=== PATIENT | female | born 1950 | race Caucasian/White ===

== ENCOUNTER 2022-02-11 09:34 | Day surgery (SDC) | payer MEDICARE, BC, SELFPAY ==
[2022-02-11] VITALS (23 sets, daily range): BP systolic 92–155; BP diastolic 6–110; PULSE 74–98; RESP 12–20; TEMP 36.2–36.6; O2SAT 94–100; BMI 32.4
[2022-02-11] MEDS: LACTATED RINGERS 1000 ML 1,000 ML 100 ML IV (10:25)
[2022-02-11] MEDS: OXYCODONE (CR) 10 MG TAB.ER.12H PO (10:25)
[2022-02-11] MEDS: CELECOXIB 200 MG CAPSULE PO ×2 (10:25→20:40)
[2022-02-11] MEDS: SODIUM CHLORIDE 0.9 % (FLUSH) 10 ML SYRINGE IVF (10:25)
[2022-02-11] MEDS: ACETAMINOPHEN 500 MG TABLET 1000 MG PO ×2 (10:25→17:39)
[2022-02-11] MEDS: MIDAZOLAM HCL 1 MG/ML inj IVP (11:10)
[2022-02-11] MEDS: fentaNYL 100 MCG/2 ML inj IVP (11:10)
--- NOTE | 2022-02-11 11:10 | SUR.PREOP ---
TIME?OUT:?1105 PT/RN/MDA?VERIFICATION?OF?SURGICAL?SITE,?PROCEDURE,?AND?CONSENT OBTAINED?PRIOR?TO?INVASIVE?PROCEDURE. CORRECT SITE IDENTIFIED SITE MARKED BLOCK COMPLETED BY DR MYRIAM HOWELL MDA
--- NOTE | 2022-02-11 11:12 | W.PM.NB ---
Nerve Block Nerve Block Time Seen by Provider: 11:13 Date Seen: 02/11/22 Type of block requested by surgeon for post-operative analgesia: adductor canal Side: left Time out performed: Yes Verification of patient name: Yes Verification of date of : Yes Site marking: site marked Name of person performing procedure: Cecilio Continuous monitoring Was continuous monitoring of O2 sat, B/P, school bus monitor, recorded every 15 minutes?: Yes Procedure Checklist: sterile prep, needles and gloves Ultrasound guided. Images saved: Yes Medications given in 5ml increments after negative aspiration: Ropivicaine %: 0.5 mL: 20 Needle gauge: 22 Decadron (mg): 10 Precedex (mcg): 25 Patient tolerated procedure well: Yes Additional comments: Needle noted adjacent to nerve Block Charges Block Charge (with Pro Fee): Femoral Nerve Use of Ultrasound Machine for Block: Yes- US Guidance/pain block
--- NOTE | 2022-02-11 11:13 | W.PM.NB ---
Nerve Block Nerve Block Time Seen by Provider: 11:13 Date Seen: 02/11/22 Type of block requested by surgeon for post-operative analgesia: geniculars Side: left Time out performed: Yes Verification of patient name: Yes Verification of date of : Yes Site marking: site marked Name of person performing procedure: Cecilio Continuous monitoring Was continuous monitoring of O2 sat, B/P, school lunch monitor, recorded every 15 minutes?: Yes Procedure Checklist: sterile prep, needles and gloves Medications given in 5ml increments after negative aspiration: Ropivicaine %: 0.5 mL: 9 Needle gauge: 25 Patient tolerated procedure well: Yes Block Charges Block Charge (with Pro Fee): Genicular Nerve Block Use of Ultrasound Machine for Block: No
[2022-02-11] MEDS: TRANEXAMIC ACID 100 MG/ML INJ 1000 MG IV (12:00)
[2022-02-11] MEDS: CEFAZOLIN 2 GM INJ IVP (12:00)
--- NOTE | 2022-02-11 13:11 | CRLHL7_ITS ---
For Patients: As a result of the Cures Act, medical imaging exams and procedure reports are released immediately into your electronic medical record. You may view this report before your referring provider. If you have questions, please contact your health care provider. Indication: Postop left knee Technique: Two views left knee Findings/Impression: Hardware from a left total knee arthroplasty is in satisfactory position. Bone alignment is normal. No sign of acute fracture. Postop changes are within normal limits. Dictated by Kris Green MD @ 02/11/2022 3:31:00 PM (Electronically Signed)
--- NOTE | 2022-02-11 13:14 | P.ORPRC_ITS ---
Procedure Note Date of procedure: 02/11/22 Procedure: SURGEON: Forest Rhoades MD COMPONENT INSPECTOR: Lisa Calzada PA-C PREOPERATIVE DIAGNOSIS: Left knee osteoarthritis POSTOPERATIVE DIAGNOSIS: Left knee osteoarthritis NAME OF OPERATION: Left total knee arthroplasty ANESTHESIA: Spinal ESTIMATED BLOOD LOSS: 0 mL COMPLICATIONS: None SPECIMENS: None DRAINS: None PREOPERATIVE ANTIBIOTICS: Ancef 2 grams IMPLANTS: 1. J&J Attune # 5 posterior stabilized femur 2. # 5 fixed-bearing tibia 3. # 5 posterior stabilized, 5 mm fixed-bearing polyethylene 4. 38 patella INDICATIONS: The patient is a 71-year-old female with a longstanding history of severe, unrelenting left knee pain secondary to end-stage (grade IV) left knee osteoarthritis. Despite appropriate nonoperative management, including activity modification, anti-inflammatories, aebt-nwy-pmalbqi pain medication, bracing, physical therapy, and injections they continue to have pain and disability. Operative intervention was offered. The risks, benefits and expected outcomes were discussed in detail. These included but were not limited to: Infection, bleeding, injury to blood vessel or nerve, venous thromboembolism. All questions were answered to their satisfaction. Use of an assistant director was necessary throughout the case for patient positioning and safety, soft tissue retraction, and closure. PROCEDURE: Spinal anesthesia was administered. The patient was placed supine on the operating table. The assistant director made sure the patient was positioned appropriately. The lower extremity was prepped and draped in the usual sterile fashion. The limb was exsanguinated with the Shorty bandage. The pneumatic tourniquet was inflated to 300 mmHg. A standard anterior incision was made with the knee in flexion. Subcutaneous dissection was sharply taken through fascial layer #1. Full-thickness medial and lateral flaps were elevated. The assistant director retracted the soft tissues and protected them throughout the case. A standard medial parapatellar approach was made. The patella was everted. The infrapatellar fat pad was preserved. The menisci and cruciate ligaments were sharply d?brided. Marginal osteophytes were d?brided with the rongeur. The drill was used to penetrate the femoral canal. The canal was aspirated and irrigated with pulse lavage. The intramedullary femoral guide was placed for a 5-degree valgus cut, removing 10 mm off the distal femur. The saw was used to make the cut. Whitesides line and the trans epicondylar axis were marked. The femoral sizing guide was pinned onto the distal femur. Three degrees of external rotation nicely parallels the transepicondylar axis. Pins were placed for posterior referencing. The four-in-one cutting guide was pinned onto the distal femur. The anterior, posterior, and chamfer cuts were made. The assistant director protected the collateral ligaments. The box cutting guide was pinned. The box cuts were made. The boxed trial was placed and was an excellent fit. Drill holes for the lugs were made. Attention was then turned to the proximal tibia. The extramedullary tibial guide was placed for a neutral varus/valgus cut with 5 degrees of posterior slope, removing 2 mm based off the medial tibial surface. The assistant director protected the collateral ligaments and the neurovascular bundle. The saw was used to make the cut. Trial components were placed. The knee was nicely balanced in both flexion and extension. Rotation of the tibial component was ma tched to the femur in full extension, matched to our tibial cutting pins, and marked with cautery. The trial components were removed. The tray was pinned by the assistant director and the drill and the punch were used. The tray was removed. The punch was used again. We placed a bone plug in the femoral canal. Attention was then turned to the patella. [place] patellar thickness was 24 mm. The lobster claw resection guide was used with the 9.5 mm sofia. The saw was used to make the cut. Drill holes were made by the assistant director. The trial was placed and was an excellent fit. Cancellous surfaces were irrigated with pulse lavage and thoroughly dried by the assistant director. We cemented the tibial component, then the femoral component. A trial spacer was placed. The knee was brought into full extension. We then cemented the patellar component. Excessive cement was removed. The cement was allowed to harden. Any remaining excessive cement was removed with the osteotome. We impacted the 5 mm polyethylene onto the tibial tray. The knee was taken through a range of motion and was found to be nicely balanced in both flexion and extension. The patella tracks centrally. The assistant director did a three minute dilute Betadine solution soak. The assistant director irrigated the wound with 3 liters of normal saline via pulse lavage. The assistant director reapproximated the extensor mechanism with #1 Vicryl in an interrupted ghmcqu-xv-omyed fashion. The assistant director then ran the extensor mechanism with a #1 PDO Stratafix. The assistant director closed the subcutaneous tissues with a 3-0 Stratafix and the skin with a running 3-0 Stratafix in a subcuticular fashion. Glue was used to seal the skin. The assistant director placed a dry dressing, GLENIS stocking, and Polar Care. Sponge and needle counts were correct x2. The patient tolerated the procedure well. There were no apparent complications. They were carefully transferred to the hospital bed and taken to the postanesthesia care unit in satisfactory condition. PLAN: The patient will be mobilized with physical therapy. Aspirin will be used for DVT prophylaxis. They will be discharged to home once medically appropriate.
--- NOTE | 2022-02-11 14:16 | W.ANESCHARGE ---
Anesthesia Charges Start Date/Time Anesthesia Start Date: 02/11/22 Anesthesia Start Time: 11:40 Stop Date/Time Anesthesia Stop Date: 02/11/22 Anesthesia Stop Time: 14:15 Summary Emergency: No Extremes of Age: Over 68-CPT 86575
--- NOTE | 2022-02-11 14:55 | W.ANESCHARGE ---
Anesthesia Charges Start Date/Time Anesthesia Start Date: 02/11/22 Anesthesia Start Time: 11:40 Stop Date/Time Anesthesia Stop Date: 02/11/22 Anesthesia Stop Time: 14:15 Summary Emergency: No Extremes of Age: Over 68-CPT 52300
--- NOTE | 2022-02-11 15:43 | P.IMCN_ITS ---
Date of Consult Patient: Other Consult date: 02/11/22 Requesting Physician: Orthopedics Primary Care Provider: Merrill Bee PA-C Consult Narrative Narrative: HOSPITALIST CONSULT Hospital Day # 1 Post Op Day # 0 NAME OF OPERATION:? Left total knee arthroplasty ANESTHESIA:? Spinal ESTIMATED BLOOD LOSS:? 0 mL COMPLICATIONS:? None The hospital medicine team was asked by Orthopedic surgery team to manage the patient's multiple medical problems which include hypertension, neuropathy. I updated the [facility] histories and Medications and Allergies in the Expanse tabs REVIEW OF SYSTEMS: 12-point ROS completed with patient and negative unless otherwise stated in HPI or below. PHYSICAL EXAM: CODE STATUS: FULL CODE CONSTITUTIONAL: Conversive, good historian. A/O. Knows setting and context. VITAL SIGNS: see record. HEENT: Normocephalic, atraumatic. PERRL, EOMI, conjunctivae pink, no scleral icterus. Ears and nose externally normal. Pharynx normal. NECK: No JVD. No carotid bruit, no thyromegaly, no adenopathy. CHEST: Clear to auscultation bilaterally HEART: No harsh murmurs. S1/S2. ABDOMEN: Flat, soft, nontender. Normal bowel sounds. Moderately obese. EXTREMITIES: No edema. MUSCULOSKELETAL: Left knee surgical dressing in place. No obvious hematoma or bleeding. NV I. NEURO: Cranial nerves intact. Normal affect. No gross deficits. Speech in telligible. SKIN: No rashes, petechiae, concerning changes PSYCHIATRIC: Euthymic. INVESTIGATIONS: EMR Reviewed DISPOSITION: MedSurg Recovery; Discharge tomorrow DVT: Agree with ortho plan for DVT prevention GI: PO intake PFSH PFS Medical History (Updated 02/11/22 @ 15:50 by Jolynn Correa MD) Acrocyanosis Daily consumption of alcohol GERD (gastroesophageal reflux disease) Glaucoma Hyperlipidemia Hypertension Morbid obesity Peripheral neuropathy Spinal stenosis of lumbosacral region Surgical History (Updated 02/11/22 @ 15:46 by Jolynn Correa MD) History of appendectomy History of arthroplasty of left knee History of bowel resection History of carpal tunnel surgery of right wrist History of hysterectomy History of right knee surgery Family History (Updated 01/26/22 @ 08:38 by Malinda Tafoya RN) Brother High blood pressure Mother Esophageal cancer Father Lung cancer Social History Smoking Status: Former smoker What tobacco products do you use: cigarettes Smoking quit date/years: >15 years ago Do you use any of these nicotine containing products: None How often do you have a drink containing alcohol: 2-3 times a week Alcohol type: beer, wine and hard liquor How many standard drinks containing alcohol do you have on a typical day: 1 or 2 How often do you have six or more drinks on one occasion: Never AUDIT-C Alcohol total score: 3 Non-prescribed substance use: denies use Non-prescribed substance use details: miralax, tylenol, aleve, ibuprofen Caffeine: Yes (tea, 2 cups/day) Meds Home Medications and Allergies Home Medications Medication Instructions Recorded Confirmed Type amlodipine 5 mg tablet 5 mg PO DAILY 02/10/22 02/11/22 History atorvastatin 40 mg tablet 40 mg PO HS 02/10/22 02/11/22 History calcium carbonate 500 mg calcium 1,000 mg PO BID 02/10/22 02/11/22 History (1,250 mg) tablet cholecalciferol (vitamin D3) 25 1,000 unit PO DAILY 02/10/22 02/11/22 History mcg (1,000 unit) tablet duloxetine 60 mg capsule,delayed 120 mg PO DAILY 02/10/22 02/11/22 History release esomeprazole magnesium 20 mg 20 mg PO Q24H 02/10/22 02/11/22 History capsule,delayed release latanoprost 0.005 % eye drops 1 drp ophthalmic (eye) HS 02/11/22 02/11/22 History losartan 50 mg-hydrochlorothiazide 1 tab PO DAILY 02/11/22 02/11/22 History 12.5 mg tablet magnesium oxide 400 mg (241.3 mg 400 mg PO DAILY 02/11/22 02/11/22 History magnesium) tablet Allergies Allergy/AdvReac Type Severity Reaction Status Date / Time morphine Allergy Intermediate Hives Verified 01/18/22 11:35 amoxicillin Allergy Unknown Verified 01/18/22 11:35 levofloxacin Allergy Unknown Verified 01/18/22 11:35 piroxicam AdvReac Intermediate upset Verified 01/18/22 11:35 stomach Exam Const: Vital Signs, click to edit/add: Vital Signs - 24 hr 02/11/22 09:59 02/11/22 11:10 02/11/22 11:15 Temperature 98 F Pulse Rate 98 98 97 Respiratory Rate 20 20 14 Blood Pressure 153/87 H 150/75 H Blood Pressure [Ri ght Arm] Pulse Oximetry 96 100 98 Oxygen Delivery Me thod Nasal Cannula Nasal Cannula Oxygen Flow Rate 3 3 02/11/22 11:20 02/11/22 11:25 02/11/22 14:11 Temperature 98 F 97.2 F L Pulse Rate 88 89 78 Respiratory Rate 14 14 12 Blood Pressure 133/68 134/69 92/55 L Blood Pressure [Ri ght Arm] Pulse Oximetry 98 100 95 Oxygen Delivery Me thod Nasal Cannula Nasal Cannula Room Air Oxygen Flow Rate 3 3 02/11/22 14:15 02/11/22 14:20 02/11/22 14:25 Temperature Pulse Rate 80 75 77 Respiratory Rate 12 12 16 Blood Pressure 111/81 100/69 105/69 Blood Pressure [Ri ght Arm] Pulse Oximetry 95 94 96 Oxygen Delivery Me thod Room Air Room Air Room Air Oxygen Flow Rate 02/11/22 14:30 02/11/22 14:35 02/11/22 14:40 Temperature 97.6 F Pulse Rate 74 74 75 Respiratory Rate 16 16 12 Blood Pressure 119/67 124/62 109/61 Blood Pressure [Ri ght Arm] Pulse Oximetry 94 96 95 Oxygen Delivery Me thod Room Air Room Air Oxygen Flow Rate 02/11/22 14:45 02/11/22 15:00 Temperature 97.1 F L Pulse Rate 74 81 Respiratory Rate 16 18 Blood Pressure 117/62 Blood Pressure [Ri ght Arm] 112/62 Pulse Oximetry 95 Oxygen Delivery Me thod Room Air Room Air Oxygen Flow Rate Assessment and Plan Assessment and plan (1) History of arthroplasty of left knee: Status: Acute Assessment and Plan: Hospital medicine team is happy to follow this patient through to discharge. There have been no perioperative complications. Her blood pressure is running a little high. At this point I am holding her hydrochlorothiazide/losartan and amlodipine. I can dose either the amlodipine or losartan singularly for a dose tonight if needed. She plans to discharge tomorrow with help from her sister at her own home. She would like to have her Cymbalta in the morning, Lipitor tonight. (2) Hypertension: Problem comment: Aram 50/12.5 Status: Acute Assessment and Plan: Continue to monitor. We may need a single 1 time dose of losartan or amlodipine. (3) Daily consumption of alcohol: Problem comment: Patient reports 2-3 alcoholic beverages every night, mixed drink or wine Status: Acute Assessment and Plan: Monitor. Likely not going to be an issue for a an overnight hospital stay. (4) Peripheral neuropathy: Problem comment: Cymbalta 120 mg daily Status: Acute Assessment and Plan: Will does this in the morning (5) GERD (gastroesophageal reflux disease): Problem comment: Daily Nexium Status: Acute Assessment and Plan: Continue (6) Glaucoma: Status: Acute Assessment and Plan: Patient states that she will continue this drops at home. (7) Hyperlipidemia: Problem comment: On statin therapy Status: Acute Assessment and Plan: Continue statin therapy tonight (8) Morbid obesity: Status: Acute
--- NOTE | 2022-02-11 15:43 | PC.NURSE ---
Pt arrived in her hospital bed to room 258 at 1500 pm s/p LTKA with Dr. Rhoades. Pt is a med/surg recovery. Initial vs and assessment from PACU completed by myself. IV patent. Teds on and plexipulses on. Pt had spinal anesthesia and a block on LLE. Left knee dressing CDI. Report to Britt Wilburn RN for evening shift.
[2022-02-11] MEDS: OXYCODONE 5 MG TABLET PO ×3 (16:52→20:41)
[2022-02-11] MEDS: LACTATED RINGERS 1000 ML 1,000 ML 75 ML IV (16:57)
[2022-02-11] MEDS: CEFAZOLIN 2 GM in 0.9 % SODIUM CHLORIDE Mini-bag 100 ML IVPB (17:39)
[2022-02-11] MEDS: ATORVASTATIN CALCIUM 40 MG TABLET PO (20:41)
[2022-02-11] MEDS: SENNOSIDES 1 TAB TABLET 2 TAB PO (20:41)
[2022-02-11] MEDS: ASPIRIN 81 MG TABLET EC PO (20:41)
--- NOTE | 2022-02-11 23:38 | PC.NURSE ---
Patient's pain managed with PRN oxycodone. Up to the bathroom with assist of 1, walker and gait belt. Cryo-cuff, teds and plexi-pulses in place. Dressing is clean dry and intact. Pt denies any nausea and is tolerating a regular diet. Voiding.
[2022-02-12] MEDS: ACETAMINOPHEN 500 MG TABLET 1000 MG PO ×2 (00:01→05:47)
[2022-02-12] MEDS: CEFAZOLIN 2 GM in 0.9 % SODIUM CHLORIDE Mini-bag 100 ML IVPB ×2 (02:06→09:21)
[2022-02-12] MEDS: LORazepam 0.5 MG TABLET PO (02:22)
[2022-02-12 03:00] VITALS: BP 149/87; PULSE 93; RESP 20; TEMP 36.6; O2SAT 95
--- NOTE | 2022-02-12 05:34 | PC.NURSE ---
[id number]: Patient pleasant and cooperative. Pain controlled with PRN Oxycodone. Denies N/V. Dressing to L. knee C/D/I/. CMS intact. A1,walker,GB. Tolerates well. Eating and voiding.
[2022-02-12] MEDS: OXYCODONE 5 MG TABLET PO ×4 (05:47→10:49)
[2022-02-12] MEDS: OMEPRAZOLE 20 MG CAPSULE DR PO (06:42)
[2022-02-12 07:00] VITALS: BP 148/70; PULSE 95; PULSE 97; RESP 20; TEMP 36.2; O2SAT 95
[2022-02-12 07:04] LABS: Basophils Absolute Auto 0.02 K/uL (0.00-0.30); Basophils Percent Auto 0.2 % (0.0-3.0); Hemoglobin* 11.4 gm/dL (12.0-16.0); Immature Granulocytes Abs Auto 0.11 K/uL (0.00-0.30); Mean Corpuscular HGB Conc 34 gm/dL (32-36); Mean Corpuscular Hemoglobin 31 pg (26-34); Mean Corpuscular Volume 93 fL (80-100); Monocytes Percent Auto 7.4 % (0.0-11.0); Neutrophils Percent Auto 86.3 % (42.0-72.0); Platelet Count* 309 K/uL (140-440); Red Blood Count 3.65 m/uL (4.00-5.20); White Blood Count* 10.32 K/uL (4.50-11.00)
[2022-02-12 07:13] LABS: Slide Review Reflex No
[2022-02-12 07:31] LABS: Potassium* 4.8 mmol/L (3.6-5.1)
[2022-02-12 07:33] LABS: Creatinine* 0.9 mg/dL (0.5-1.5); Estimated Glomerular Filt Rate 68 ml/min; INR 0.96 (0.91-1.10); Prothrombin Time 13.2 Seconds
[2022-02-12 07:34] LABS: Blood Urea Nitrogen* 25 mg/dL (7-30)
--- NOTE | 2022-02-12 07:46 | P.ORPN_ITS ---
Subjective Subjective Time Seen by Provider: 07:20 Date Seen: 02/12/22 Principal diagnosis: Day 1 S/P left TKA Interval history: Steph is doing well this morning and is resting comfortably in her recliner. Patient c/o 7/10 knee pain at rest and 9/10 pain with ambulation. Pain is well managed with current scheduled and PRN oral pain medications and ice. Denies: fever, chills, chest pain, SOB, numbness/tingling distally. Patient has not yet been seen by Physical Therapy this morning. Admits to strong appetite. No acute events over night. Ortho Exam Narrative Exam Narrative: Incision/Dressing: Dressing appears clean and dry. No drainage present. Mepilex intact. Left knee appears moderately swollen but supple with no obvious erythema, fluctuance or excessive warmth. No ecchymosis or erythematous streaking. Warmth around the wound is appropriate. Ice is being utilized as needed. CMS: Intact distally with 2+ Dorsalis pedis and Posterior Tibial pulses. 5/5 motor strength dorsal and plantar flexion. Confirmed sensation distally. Intact straight leg raise. Calf: Bilateral calves are supple, with no swelling, pain, tenderness, eryt jesus manuel, discoloration or coolness to the touch. Constitutional: Patient is alert and oriented x3. Patient is in no acute distress and converses without labored breathing. Patient is able to make decisi ons and demonstrates good insight. Patient is pleasant and cooperative. Affect is full range and appropriate for the circumstances. Const Vital Signs, click to edit/add: Vital Signs - 24 hr 02/11/22 09:59 02/11/22 11:10 02/11/22 11:15 Temperature 98 F Pulse Rate 98 98 97 Pulse Rate [Left Pulse Oximeter] Respiratory Rate 20 20 14 Blood Pressure 153/87 H 150/75 H Blood Pressure [Right Arm] Pulse Oximetry 96 100 98 Oxygen Delivery Method Nasal Cannula Nasal Cannula Oxygen Flow Rate 3 3 02/11/22 11:20 02/11/22 11:25 02/11/22 14:11 Temperature 98 F 97.2 F L Pulse Rate 88 89 78 Pulse Rate [Left Pulse Oximeter] Respiratory Rate 14 14 12 Blood Pressure 133/68 134/69 92/55 L Blood Pressure [Right Arm] Pulse Oximetry 98 100 95 Oxygen Delivery Method Nasal Cannula Nasal Cannula Room Air Oxygen Flow Rate 3 3 02/11/22 14:15 02/11/22 14:20 02/11/22 14:25 Temperature Pulse Rate 80 75 77 Pulse Rate [Left Pulse Oximeter] Respiratory Rate 12 12 16 Blood Pressure 111/81 100/69 105/69 Blood Pressure [Right Arm] Pulse Oximetry 95 94 96 Oxygen Delivery Method Room Air Room Air Room Air Oxygen Flow Rate 02/11/22 14:30 02/11/22 14:35 02/11/22 14:40 Temperature 97.6 F Pulse Rate 74 74 75 Pulse Rate [Left Pulse Oximeter] Respiratory Rate 16 16 12 Blood Pressure 119/67 124/62 109/61 Blood Pressure [Right Arm] Pulse Oximetry 94 96 95 Oxygen Delivery Method Room Air Room Air Oxygen Flow Rate 02/11/22 14:45 02/11/22 15:00 02/11/22 15:15 Temperature 97.1 F L Pulse Rate 74 81 Pulse Rate [Left Pulse Oximeter] 76 Respiratory Rate 16 18 18 Blood Pressure 117/62 Blood Pressure [Right Arm] 112/62 106/57 L Pulse Oximetry 95 97 Oxygen Delivery Method Room Air Room Air Room Air Oxygen Flow Rate 02/11/22 15:30 02/11/22 15:45 02/11/22 16:00 Temperature Pulse Rate Pulse Rate [Left Pulse Oximeter] 74 78 83 Respiratory Rate 18 18 18 Blood Pressure Blood Pressure [Right Arm] 106/6 L 131/77 147/110 H Pulse Oximetry 94 98 97 Oxygen Delivery Method Room Air Room Air Room Air Oxygen Flow Rate 02/11/22 16:30 02/11/22 17:00 02/11/22 18:00 Temperature Pulse Rate Pulse Rate [Left Pulse Oximeter] 92 95 95 Respiratory Rate 18 18 18 Blood Pressure Blood Pressure [Right Arm] 155/7 H 135/74 151/102 H Pulse Oximetry 98 97 98 Oxygen Delivery Method Room Air Room Air Room Air Oxygen Flow Rate 02/11/22 19:00 02/11/22 23:00 02/12/22 03:00 Temperature 97.9 F 97.9 F Pulse Rate Pulse Rate [Left Pulse Oximeter] 87 91 93 Respiratory Rate 18 16 20 Blood Pressure Blood Pressure [Right Arm] 130/101 H 131/91 H 149/87 H Pulse Oximetry 97 95 95 Oxygen Delivery Method Room Air Room Air Room Air Oxygen Flow Rate Documenting provider has reviewed patient's vital signs: yes Common normals: no apparent distress, oriented x3, healthy appearing, alert and well nourished Neuro Common normals: oriented x3 Sensorium/orientation: alert Assessment and Plan Assessment and plan (1) History of arthroplasty of left knee: Status: Acute Assessment and Plan: - Complete 23 hour perioperative antibiotics. - PT/OT consults for education and assistance. - Social consult for discharge planning. - Weight bear as tolerated. - DVT prophylaxis includes: aspirin 81 mg BID x 1 month. Also bilateral knee high Reji stockings (x 1 month), frequent ambulation and ankle pumps when sedentary. - Anticipate patient will be discharged to home this afternoon if the patient remains medically stable, pain is controlled and is safe with ambulation. - Return to clinic in 1 week for a wound check with ASHLEY. Mepilex dressing will be removed at this appointment. Remove sooner if dressing becomes saturated. - Return to clinic in [address] Rhoades. - Prescribed analgesics as needed. Patient is content with current narcotic medications. Minimize narcotic pain medication use; wean off and discontinue as soon as possible. - Phone Orthopedics with any questions or concerns. (2) Hypertension: Problem details: Hyzaar 50/12.5 Status: Acute (3) Daily consumption of alcohol: Problem details: Patient reports 2-3 alcoholic beverages every night, mixed drink or wine Status: Acute (4) Peripheral neuropathy: Problem details: Cymbalta 120 mg daily Status: Acute (5) GERD (gastroesophageal reflux disease): Problem details: Daily Nexium Status: Acute (6) Glaucoma: Status: Acute (7) Hyperlipidemia: Problem details: On statin therapy Status: Acute (8) Morbid obesity: Status: Acute
[2022-02-12] MEDS: SENNOSIDES 1 TAB TABLET 2 TAB PO (09:19)
[2022-02-12] MEDS: ASPIRIN 81 MG TABLET EC PO (09:19)
[2022-02-12] MEDS: DULOXETINE 30 MG CAPSULE DR 120 MG PO (09:20)
[2022-02-12] MEDS: CELECOXIB 200 MG CAPSULE PO (09:20)
[2022-02-12] MEDS: MAGNESIUM OXIDE 400 MG TABLET PO (09:20)
--- NOTE | 2022-02-12 09:44 | P.DS_ITS ---
DS: Providers Provider Date Seen: 02/12/22 Primary care physician: Merrill Bee PA-C Admitting Clinician: Dr Rhoades of Orthopedic Surgery Consults: OT, PT, hospitalist team Attending Physician on discharge: Forest Rhoades MD Date of Discharge: 02/12/22 DS: Diagnosis Discharge Diagnosis (1) History of arthroplasty of left knee: Status: Acute (2) GERD (gastroesophageal reflux disease): Status: Acute Problem details: Daily Nexium (3) Hyperlipidemia: Status: Acute Problem details: On statin therapy (4) Hypertension: Status: Acute Problem details: Hyzaar 50/12.5 DS: Summary Hospital Course Hospital Course: Steph is a 71-year-old female who was admitted to the hospital for left TKA. Patient did well postoperatively and comorbidities remained stable. No changes made to home medications upon discharge. She will be going home with her sister today. Prophylaxis and pain management per Orthopedic surgery team. Patient will be discharged home with routine follow-up with therapies, orthopedic surgery, and PCP. Time Spent with Patient Time attestation: Total time spent providing and/or coordinating discharge services: Time spent: Less than 30 minutes Exam Narrative: Exam Narrative: GEN: Alert and oriented, sitting comfortably in bedside chair and answering questions appropriately HEENT: Normal external ears, EOMIs bilaterally, no scleral icterus CV: RRR, No concerning murmurs, rubs, or gallops R: LCTA bilaterally without concerning wheezing, rales, or rhonchi Skin: No concerning skin lesions or rashes on exposed skin Neuro: Nonfocal, no resting tremor Psych: Appropriate Const: Vital Signs, click to edit/add: Vital Signs - 24 hr 02/11/22 09:59 02/11/22 11:10 02/11/22 11:15 Temperature 98 F Pulse Rate 98 98 97 Pulse Rate [Left P ulse Oximeter] Respiratory Rate 20 20 14 Blood Pressure 153/87 H 150/75 H Blood Pressure [Ri ght Arm] Pulse Oximetry 96 100 98 Oxygen Delivery Me thod Nasal Cannula Nasal Cannula Oxygen Flow Rate 3 3 02/11/22 11:20 02/11/22 11:25 02/11/22 14:11 Temperature 98 F 97.2 F L Pulse Rate 88 89 78 Pulse Rate [Left P ulse Oximeter] Respiratory Rate 14 14 12 Blood Pressure 133/68 134/69 92/55 L Blood Pressure [Ri ght Arm] Pulse Oximetry 98 100 95 Oxygen Delivery Me thod Nasal Cannula Nasal Cannula Room Air Oxygen Flow Rate 3 3 02/11/22 14:15 02/11/22 14:20 02/11/22 14:25 Temperature Pulse Rate 80 75 77 Pulse Rate [Left P ulse Oximeter] Respiratory Rate 12 12 16 Blood Pressure 111/81 100/69 105/69 Blood Pressure [Ri ght Arm] Pulse Oximetry 95 94 96 Oxygen Delivery Me thod Room Air Room Air Room Air Oxygen Flow Rate 02/11/22 14:30 02/11/22 14:35 02/11/22 14:40 Temperature 97.6 F Pulse Rate 74 74 75 Pulse Rate [Left P ulse Oximeter] Respiratory Rate 16 16 12 Blood Pressure 119/67 124/62 109/61 Blood Pressure [Ri ght Arm] Pulse Oximetry 94 96 95 Oxygen Delivery Me thod Room Air Room Air Oxygen Flow Rate 02/11/22 14:45 02/11/22 15:00 02/11/22 15:15 Temperature 97.1 F L Pulse Rate 74 81 Pulse Rate [Left P ulse Oximeter] 76 Respiratory Rate 16 18 18 Blood Pressure 117/62 Blood Pressure [Ri ght Arm] 112/62 106/57 L Pulse Oximetry 95 97 Oxygen Delivery Me thod Room Air Room Air Room Air Oxygen Flow Rate 02/11/22 15:30 02/11/22 15:45 02/11/22 16:00 Temperature Pulse Rate Pulse Rate [Left P ulse Oximeter] 74 78 83 Respiratory Rate 18 18 18 Blood Pressure Blood Pressure [Ri ght Arm] 106/6 L 131/77 147/110 H Pulse Oximetry 94 98 97 Oxygen Delivery Me thod Room Air Room Air Room Air Oxygen Flow Rate 02/11/22 16:30 02/11/22 17:00 02/11/22 18:00 Temperature Pulse Rate Pulse Rate [Left P ulse Oximeter] 92 95 95 Respiratory Rate 18 18 18 Blood Pressure Blood Pressure [Ri ght Arm] 155/7 H 135/74 151/102 H Pulse Oximetry 98 97 98 Oxygen Delivery Me thod Room Air Room Air Room Air Oxygen Flow Rate 02/11/22 19:00 02/11/22 23:00 02/12/22 03:00 Temperature 97.9 F 97.9 F Pulse Rate Pulse Rate [Left P ulse Oximeter] 87 91 93 Respiratory Rate 18 16 20 Blood Pressure Blood Pressure [Ri ght Arm] 130/101 H 131/91 H 149/87 H Pulse Oximetry 97 95 95 Oxygen Delivery Me thod Room Air Room Air Room Air Oxygen Flow Rate 02/12/22 07:00 02/12/22 07:00 Temperature 97.1 F L Pulse Rate Pulse Rate [Left P ulse Oximeter] 95 97 Respiratory Rate 20 20 Blood Pressure Blood Pressure [Ri ght Arm] 148/70 H Pulse Oximetry 95 Oxygen Delivery Me thod Room Air Oxygen Flow Rate 0 DS: Data Data Completed and Pending Labs on day of discharge: Labs from last 24 hours 02/12/22 02/12/22 02/12/22 06:02 06:02 06:02 WBC 10.32 RBC 3.65 L Hgb 11.4 L Hct 34.0 MCV 93 MCH 31 MCHC 34 RDW Coeff of Ryley 12.0 Plt Count 309 Neut % (Auto) 86.3 H Lymph % (Auto) 5.0 L Da[place]hin % (Auto) 7.4 Eos % (Auto) 0.0 Baso % (Auto) 0.2 Neut # (Auto) 8.90 H Lymph # (Auto) 0.50 L Dauphin # (Auto) 0.80 Eos # (Auto) 0.00 Baso # (Auto) 0.02 Abs Immat Gran (auto) 0.11 INR 0.96 Potassium 4.8 BUN 25 Creatinine 0.9 Estimated Creat Clear 46.90 Estimated GFR 68 Discharge Plan Discharge Disposition: Home, Self-Care Discharging Surgeon: Forest Rhoades Follow-Up Appointment: One week with ASHLEY and [address] Rhoades Prescriptions: New acetaminophen 500 mg Tablet 500 - 1,000 mg PO Q6H Qty: 100 0RF aspirin 81 mg Tablet,Delayed Release (Dr/Ec) 81 mg PO BID Qty: 60 0RF celecoxib 200 mg Capsule 200 mg PO BID Qty: 30 0RF oxycodone 5 mg Tablet 2.5 - 5 mg PO Q4-6H PRN (Reason: Pain) Qty: 42 0RF sennosides [Senna Lax] 8.6 mg Tablet 17.2 mg PO BID Qty: 30 0RF Continued atorvastatin 40 mg tablet 40 mg PO HS calcium carbonate 500 mg calcium (1,250 mg) tablet 1,000 mg PO BID esomeprazole magnesium 20 mg capsule,delayed release(DR/EC) 20 mg PO Q24H duloxetine 60 mg capsule,delayed release(DR/EC) 120 mg PO DAILY cholecalciferol (vitamin D3) 25 mcg (1,000 unit) tablet 1,000 unit PO DAILY amlodipine 5 mg tablet 5 mg PO DAILY Label Comments: TAKE 1 TABLET BY MOUTH ONCE DAILY losartan-hydrochlorothiazide 50-12.5 mg tablet 1 tab PO DAILY Label Comments: TAKE 1 TABLET BY MOUTH ONCE DAILY latanoprost 0.005 % drops 1 drp ophthalmic (eye) HS Rx Instructions: 1 drop each eye everynight magnesium oxide 400 mg (241.3 mg magnesium) tablet 400 mg PO DAILY Activity Level: Activity as Tolerated and Weight Bearing as Tolerated Discharge Diet: Regular Patient Instructions: Acetaminophen (By mouth), Aspirin (By mouth) (Dana Extra Strength, Dana Aspirin Children's,..., Oxycodone, Rapid Release (By mouth) (ETH-Oxydose, Oxy IR,..., Celecoxib (By mouth), Senna (By mouth) (Sen, Senna- lax), Surgical Site Infections (DC), Knee Replacement (DC) Forms: Work/Release Restrictions Follow-up: Lisa Calzada PA-C [Physician Sr. Payroll Processor] - 02/19/22 10:00 am Merrill Bee PA-C [Primary Care Provider] - (Set up appointment as needed) Discharge Orders: Discharge Order (Routine); Ordered 02/12/22 Ordered By: Lisa Calzada
--- NOTE | 2022-02-12 12:14 | PC.NURSE ---
Patient tolerated PT/OT well today. oxy given prior to d/c. IV removed after last ABX dose. Home walker brought in for sizing however walker same height/size as current walker that PT adjusted in room. Pt discharged home with sister at 1200.
== END 2022-02-12 12:00 | disposition home or self-care (01) ==
LOC: OR 09:37 → MEDSURG 09:41
PROVIDERS: PCP Physician Assistant; Visit Provider Orthopaedic Surgery
PROC: (CPT 27447; principal; 2022-02-11 11:30)
DX: M17.12 Unilateral primary osteoarthritis, left knee (principal); K21.9 Gastro-esophageal reflux disease without esophagitis; I10 Essential (primary) hypertension; G62.9 Polyneuropathy, unspecified; H40.9 Unspecified glaucoma; E78.5 Hyperlipidemia, unspecified; E66.01 Morbid (severe) obesity due to excess calories; Z68.32 Body mass index [BMI] 32.0-32.9, adult
CPT/HCPCS: 27447; 01402; 36415; 64447; 64454; 73560; 76942; 82565; 84132; 84295; 84520; 85025; 85610; 97110; 97116; 97161; 97165; 97530; 97535; 99100; A9270; C1776; J0690; J1100; J2250; J2370; J2405; J2704; J2795; J3010; J7120

== ENCOUNTER 2022-03-22 15:40 | Outpatient (CLI) | payer MEDICARE, BC, SELFPAY ==
--- OUTSIDE RECORDS SUMMARY | 2022-03-22 15:43 | XMS_ITS | Encounter Summary ---
:1950 Author Organization [facility] Address [address] [place] [address] Care Team Providers Name Role Phone Merrill Bee P.A.-C. Primary Care Provider [phone] Reason for Referral Outpatient (Routine) - Closed Specialty Diagnoses / Procedures Referred By Contact Refer red To Contact Diagnoses Screening Mammogram Breast Cancer Merrill Bee P.A.-C. [facility] Procedures BI Breast Screening Bilateral with Tomosynthesis [address] [place] [address] Referral ID Status Reason Start Date Expiration Date Visits Requ ested Visits Authorized [id number] Closed 01/20/2022 01/20/2023 1 1 Reason for Visit Outpatient (Routine) - Closed Specialty Diagnoses / Procedures Referred By Contact Refer red To Contact Diagnoses Screening Mammogram Breast Cancer Merrill Bee P.A.-C. [facility] Procedures BI Breast Screening Bilateral with Tomosynthesis [address] [place] [address] Referral ID Status Reason Start Date Expiration Date Visits Requ ested Visits Authorized [id number] Closed 01/20/2022 01/20/2023 1 1 Encounter Details Date Type Department Care Team Description 01/21/2022 Hospital Encounter Department of Cielo Bee Mammogram Radiology in [facility] [place], [place] [address], [place] [phone] Social History Tobacco Use Types Packs/Day Years Used Date Smoking Tobacco: Former Cigarettes Quit : 03/25/1994 Smokeless Tobacco: Never Alcohol Use Standard Drinks/Week Comments Yes 25 (1 standard drink = 0.6 oz pure 2-3 d rinks every night (mixed drink alcohol) or wine) Alcohol Habits Answer Date Recorded How often do you have a drink containing 4 or more times a w [place] 10/05/2021 alcohol? How many drinks containing alcohol do you have 1 or 2 10/05/2021 on a typical day when you are drinking? How often do you have six or more drinks on one Less than mo nthly 10/05/2021 occasion? Social Isolation Answer Date Recorded In a typical week, how many times do you More than three clif[place] es a week 10/05/2021 talk on the phone with family, friends, or neighbors? How often do you get together with friends More than three t imes a week 10/05/2021 or relatives? How often do you attend congregation or 1 to 4 times per year 07/2021 denominational services? Do you belong to any clubs or Yes 10/05/2021 organizations such as congregation groups, unions, fraternal or athletic groups, or school groups? How often do you attend meetings of the More than 4 times pe r year 10/05/2021 clubs or organizations you belong to? Are you now , , , 10/05/2021 , never or living with a partner? Physical Activity Answer Date Recorded On average, how many days per week do you engage in moderate to 1 day 10/05/2021 strenuous exercise (like walking fast, running, jogging, dancing, swimming, biking, or other activities that cause a light or heavy sweat)? On average, how many minutes do you engage in exercise at th is 20 min 10/05/2021 level? Stress Answer Date Recorded Do you feel stress - tense, restless, nervous, or anxious, N ot at all 10/05/2021 or unable to sleep at night because your mind is troubled all the time - these days? Financial Resource Strain Answer Date Recorded How hard is it for you to pay for the very basics like Not h david at all 10/05/2021 food, housing, medical care, and heating? Intimate Partner Violence Answer Date Recorded Within the last year, have you been afraid of your partner o r No 10/05/2021 ex-partner? Within the last year, have you been humiliated or emotionall y No 10/05/2021 abused in other ways by your partner or ex-partner? Within the last year, have you been kicked, hit, slapped, or No 10/05/2021 otherwise physically hurt by your partner or ex-partner? Within the last year, have you been raped or forced to have any No 10/05/2021 kind of sexual activity by your partner or ex-partner? Food Insecurity Answer Date Recorded Within the past 12 months, you worried that your food would Never true 10/05/2021 run out before you got money to buy more. Within the past 12 months, the food you bought just didn't N ever true 09/30/2020 last and you didn't have money to get more. Transportation Needs Answer Date Recorded In the past 12 months, has lack of transportation kept you f rom No 10/05/2021 medical appointments or from getting medications? In the past 12 months, has lack of transportation kept you f rom No 10/05/2021 meetings, work, or getting things needed for daily living? Housing Stability Answer Date Recorded In the last 12 months, was there a time when you were not ab le No 10/05/2021 to pay the mortgage or rent on time? In the last 12 months, how many places have you lived? 1 10/05/2021 In the last 12 months, was there a time when you did not hav e a No 10/05/[address] sleep or slept in a penitentiary (including now)? Education Answer Date Recorded What is the highest level of school Master's degree (e.g., M Gogo, MS, 12/01/2018 you have completed or the highest Faustina, MEd, CRUISE GUIDE, GIORGIO) degree you have received? Sex Assigned at Date Recorded Female 03/07/2018 9:31 AM CDT documented as of this encounter Medications at Time of Discharge Medication Sig Dispensed Refills Start Date End Date acetaminophen Take 650-1,200 mg by 0 (TYLENOL) 500 mg mouth 3 (three) times tablet a day as needed. Take 500-1,000 mg by mouth 3 times daily if needed. Max acetaminophen dose: 4000mg in 24 hours. amLODIPine (NORVASC) 5 Take 1 tablet (5 mg 90 tablet 3 01/04 mg tablet total) by mouth daily. atorvastatin (LIPITOR) Take 1 tablet (40 mg 90 tablet 3 40 mg tablet total) by mouth at bedtime. B complex-vitamin Take 1 capsule by 0 10/22/2015 (for_SUPER B-50) mouth daily. capsule CALCIUM Take by mouth 2 (two) 0 01/27/2010 CARBONATE/VITAMIN D3 times a day. (CALCIUM 600 WITH VITAMIN D3 ORAL) cholecalciferol, Take 1,000 Units by 0 vitamin D3, 25 mcg mouth daily. (1,000 Unit) tablet DOCOSAHEXANOIC daily. 0 12/13/2012 ACID/EPA (FISH OIL ORAL) DULoxetine (CYMBALTA) Take 2 capsules (120 180 capsule 3 01/20/[address] capsule mg total) by mouth daily. esomeprazole (NexIUM) Take 20 mg by mouth 0 12/[address] capsule daily. GLUCOSAMINE/CHONDROITI daily. 0 10/05/2010 N SULF A (GLUCOSAMINE-CHONDROIT IN ORAL) latanoprost Administer 1 drop 0 08/02/2014 (for_XALATAN) 0.005 % into both eyes at ophthalmic solution bedtime. losartan-hydroCHLOROth Take 1 tablet by 90 tablet 3 022 01/20/2023 iazide (HYZAAR) mouth daily. 50-12.5 mg per tablet magnesium oxide Take 400 mg by mouth 0 (MAG-OX) 400 mg (241.3 daily. mg magnesium) tablet meclizine (ANTIVERT) TAKE 1 TABLET BY 90 tablet 3 2 25 mg tablet MOUTH THREE TIMES DAILY NEEDED FOR DIZZINESS multivitamin Take 1 tablet by 0 (THERAGRAN) tablet mouth daily. omega-3 fatty Take 1 capsule by 0 acids-fish oil mouth. 360-1,200 mg capsule polyethylene glycol Take 17 g by mouth 0 06/22/19 21 (MIRALAX) 17 gram/dose daily. Measure 17g in oral powder the cap provided and dissolve completely in 8 ounces of liquid as directed and drink once a day TURMERIC ORAL Take 1 capsule by 0 mouth daily. VIT C/VIT Take 1 tablet by 0 10/22/2015 E/LUTEIN/MIN/OMEGA-3 mouth daily. (OCUVITE ORAL) documented as of this encounter Plan of Treatment Upcoming Encounters Date Type Specialty Care Team Description 03/25/2022 Office Visit Family Medicine Leslie Gonzalez M.D. [address] [place] [address] [phone] (Wo rk) documented as of this encounter Procedures Procedure Name Priority Date/Time Associated Comments Diagnosis BI BREAST SCREENING RAD - Routine 01/21/2022 11:39 Screening Res ults for BILATERAL WITH (most inpatients AM CDT Mammogram Breast this procedure TOMOSYNTHESIS and all Cancer are in the outpatients) results section. documented in this encounter Results BI Breast Screening Bilateral with Tomosynthesis (01/21/2022 11:39 AM CDT) Anatomical Region Laterality Modality Breast, Breast Imaging RST LOS, Breast Imaging ARZ LOS, [place] st Bilateral Mammography Imaging FLA LOS Specimen (Source) Anatomical Collection Method Collection Time Re ceived Time Location / / Volume Laterality 01/21/2022 4:22 PM CDT Impressions 01/21/2022 4:29 PM CDT Negative. RECOMMENDATION: ??Annual Screening Mammo gram ASSESSMENT: ??BI-RADS: 1: Negative. Narrative 01/21/2022 4:29 PM CDT EXAM: ??BI BREAST SCREENING BILATERAL WITH TOMOSYNTHESIS Current study was evaluated with a Compu ter Aided Detection (CAD) system. INDICATION: ??Screening mammogram. COMPARISON: ??Prior exam(s) were availab le and reviewed for comparison. DENSITY: ??c. The breast(s) are heteroge neously dense, which may obscure small masses. FINDINGS: ??No mammographic findings of malignancy. Procedure Note Sharif Kenyon M.D. - 01/21/2022Formattin g of this note might be different from the original. EXAM: BI BREAST SCREENING BILATERAL WITH TOMOSYNTHESIS Current study was evaluated with a Compu ter Aided Detection (CAD) system. INDICATION: Screening mammogram. COMPARISON: Prior exam(s) were available and reviewed for comparison. DENSITY: c. The breast(s) are heterogene ously dense, which may obscure small masses. FINDINGS: No mammographic findings of ma lignancy. IMPRESSION: Negative. RECOMMENDATION: Annual Screening Mammogr am ASSESSMENT: BI-RADS: 1: Negative. Merrill Bee P.A.-C. IMG BI PROCEDURES documented in this encounter Visit Diagnoses Diagnosis Screening Mammogram Breast Cancer documented in this encounter Care Teams Newsperson Relationship Specialty Start Date End Date Merrill Bee P.A.-C. PCP - General 11/18/16 [address] [place] [address] documented as of this encounter
--- OUTSIDE RECORDS SUMMARY | 2022-03-22 15:43 | XMS_ITS | Clinical Summary ---
:1950 Author Organization [facility] Address [address] [place] [address] Care Team Providers Name Role Phone Merrill Bee P.A.-C. Primary Care Provider [phone] Source Comments Patient records contain information from all sites at [facility]. For routine questions regarding patient records, call [phone] during business hours, M-F 8:00 AM - 5:00 PM Central Time. Record requests for emergency care only can be directed to [phone] at any time.[facility] Allergies Active Allergy Reactions Severity Noted Date Comments Amoxicillin Diarrhea 10/30/2009 Levofloxacin Hives 10/30/2009 Morphine Hives 10/30/2009 Piroxicam Other (see comments) 10/30/2009 swollen hands and feet, ankles Pregabalin Other (see comments) 12/13/2012 fatigue , edema at high dose Medications Medication Sig Dispensed Refills Start Date End Date Status CALCIUM Take by mouth 2 0 01/27/2010 Act michael CARBONATE/VITAMIN D3 (two) times a day. (CALCIUM 600 WITH VITAMIN D3 ORAL) esomeprazole Take 20 mg by mouth 0 12/06/2016 Active (NexIUM) [address] daily[address] capsule GLUCOSAMINE/CHONDROI daily. 0 10/05/2010 Active TIN SULF A (GLUCOSAMINE-CHONDRO ITIN ORAL) latanoprost Administer 1 drop 0 08/02/2014 Active (for_XALATAN) 0.005 into both eyes at % ophthalmic bedtime. solution B complex-vitamin Take 1 capsule by 0 10/22/2015 Active (for_SUPER B-50) mouth daily. capsule VIT C/VIT Take 1 tablet by 0 10/22/2015 Ac tive E/LUTEIN/MIN/OMEGA-3 mouth daily. (OCUVITE ORAL) DOCOSAHEXANOIC daily. 0 12/13/2012 Acti ve ACID/EPA (FISH OIL ORAL) TURMERIC ORAL Take 1 capsule by 0 Active mouth daily. cholecalciferol, Take 1,000 Units by 0 Active vitamin D3, 25 mcg mouth daily. (1,000 Unit) tablet magnesium oxide Take 400 mg by 0 Active (MAG-OX) 400 mg mouth daily. (241.3 mg magnesium) tablet multivitamin Take 1 tablet by 0 Active (THERAGRAN) tablet mouth daily. polyethylene glycol Take 17 g by mouth 0 06/22/2020 Active (MIRALAX) 17 daily. Measure 17g gram/dose oral in the cap provided powder and dissolve completely in 8 ounces of liquid as directed and drink once a day acetaminophen Take 650-1,200 mg 0 Active (TYLENOL) 500 mg by mouth 3 (three) tablet times a day as needed. Take 500-1,000 mg by mouth 3 times daily if needed. Max acetaminophen dose: 4000mg in 24 hours. omega-3 fatty Take 1 capsule by 0 Active acids-fish oil mouth. 360-1,200 mg capsule meclizine (ANTIVERT) TAKE 1 TABLET BY 90 tablet 3 12/30/2021 Active 25 mg tablet MOUTH THREE TIMES DAILY NEEDED FOR DIZZINESS amLODIPine (NORVASC) Take 1 tablet (5 mg 90 tablet 3 2 Active 5 mg tablet total) by mouth daily. atorvastatin Take 1 tablet (40 90 tablet 3 01/20/2022 Active (LIPITOR) 40 mg mg total) by mouth tablet at bedtime. DULoxetine Take 2 capsules 180 capsule 3 01/20/2022 Active (CYMBALTA) [address] (120 mg total) by 3 capsule mouth daily. losartan-hydroCHLORO Take 1 tablet by 90 tablet 3 01/20/2022 0 Active thiazide (HYZAAR) mouth daily. 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 Spinal Stenosis Lumbosacral Region 04/28/2020 Hypertension Essential Primary 03/10/2018 Neuropathy Peripheral 11/18/2017 Hypercholesterolemia 09/21/2011 Resolved Problems Problem Noted Date Resolved Date History Of Falling 12/10/2020 01/12/2021 Edema Leg 12/10/2020 01/20/2022 Alcohol Moderate Or Severe Use Disorder (Dependence) 021 12/17/2021 Uncomplicated Other Hypotension 07/08/2020 07/14/2020 Onychomycosis 04/12/2018 01/12/2021 Polyp Colon Personal History 04/19/2014 11/18/2017 Stroke 10/30/2013 01/04/2020 Overview: Stroke Reflux Esophageal 12/15/2010 01/12/2021 Encounters Date Type Specialty Care Team Description 02/21/2022 Orders Only Merrill Bee, P.A.-C. 01/21/2022 Hospital Encounter Radiology Rohit, Screening Mammogram Breast Merrill, Cancer P.A.-C. 01/20/2022 Hospital Encounter Radiology Rohit, Pain Wris t Right Merrill, P.A.-C. 01/20/2022 Office Visit Family Medicine Rohit, Annual Medic are Merrill, Examination Ret urn P.A.-C. (Primary Dx) Anita Crespo R.N. 01/20/2022 Comprehensive Visit Family Medicine Rohit, Hyper cholesterolemia (Primary Dx); Merrill, Hypertension Es sential Primary; P.A.-C. Acrocyanosis (H CC); Neuropathy Joan pheral; Preoperative Ex am; Screening Mammo gram Breast Cancer; Pain Wrist Righ t; Pain Knee Left 01/19/2022 Clinical Family Medicine Rohit, Medicare [facility] Wellness Communication Merrill, Visit Subseque nt P.A.-C. 01/18/2022 Hospital Encounter Laboratory Rohit, Hyperchol esterolemia; Medicine Merrill, Hypertension Es sential Primary P.A.-C. 12/29/2021 Refill Family Medicine Rohit, Med Refill Merrill, P.A.-C. from Last 3 Months Immunizations Name Administration Dates Next Due DT, Pediatric 05/20/2000 HZV (ZOSTAVAX) 01/27/2010 HepA Adult 01/12/2008 HepA, Unspecified 04/18/2007 Influenza high dose QV(65 years or 03/24/2020 older) (PF) Influenza, Quadrivalent, Adjuvanted, 03/27/2021 Preservative Free Influenza, Unspecified 03/06/2020 PCV20 01/20/2022 PPSV23 01/04/2020 RZV (SHINGRIX) 06/01/2019, 03/19/2019 SARS-COV-2 (COVID-19) - MODERNA 08/29/2020, 08/01/2020 Td (Adult), adsorbed 11/12/2021 (Deferred: Patient decision) Td Preservative Free (TENIVAC, 11/12/2021, 07/14/2020 DECAVAC) Tdap 01/27/2010 Family History Medical History Relation Name Comments Colitis Brother 1 Filiberto Hypertension Brother 1 Filiberto Seizures Brother 1 Filiberto Hypertension Brother 2 Lianne Arita Lung cancer Father Chuy Arita Coronary artery disease Father's Brother Ayden Arita Tuberculosis Maternal Grandfather Norberto Kumar Other cancer Mother Una Arita stomach Relation Name Status Comments Brother 1 Filiberto Brother 2 Lianne Juan J Father Chuy Arita Father's Brother Ayden Arita Maternal Grandfather Norberto Kumar Mother Una Arita Social History Tobacco Use Types Packs/Day Years Used Date Smoking Tobacco: Former Cigarettes Quit : 03/25/1994 Smokeless Tobacco: Never Tobacco Cessation: Counseling Given: Not Answered Alcohol Use Standard Drinks/Week Comments Yes 25 (1 standard drink = 0.6 oz pure 2-3 d rinks every night (mixed drink alcohol) or wine) Alcohol Habits Answer Date Recorded How often do you have a drink containing 4 or more times a w [place] 10/05/2021 alcohol? How many drinks containing alcohol [...] or relatives? How often do you attend caodaism or 1 to 4 times per year 07/2021 christian services? Do you belong to any clubs or Yes 10/05/2021 organizations such as caodaism groups, unions, fraternal or athletic groups, or [...] place to sleep or slept in a chcf (including now)? Education Answer Date Recorded What is the highest level of school Master's degree (e.g., M [place], MS, 12/01/2018 you have completed or the highest Faustina, MEd, LIFE GUARD, GIORGIO) degree you have received? Sex Assigned at Date Recorded Female 03/07/2018 9:31 AM CDT Last Filed Vital Signs Vital Sign Reading Time Taken Comments Blood Pressure 135/77 01/20/2022 8:16 AM CDT Average Pulse 89 01/20/2022 8:16 AM CDT Temperature 36.2 ??C (97.1 ??F) 01/20/2022 8:16 AM CDT Respiratory Rate 16 01/20/2022 8:16 AM CDT Oxygen Saturation 99% 06/11/2021 3:20 PM OUTSIDE PHYSICAL DAMAGE APPRAISER Inhaled Oxygen Concentration - - Weight 93 kg (205 lb 0.4 oz) 01/20/2022 8:16 AM CDT Height 168 cm (5' 6.14) 01/20/2022 8:16 AM CDT Body Mass Index 32.95 01/20/2022 8:16 AM CDT Plan of Treatment Upcoming Encounters Date Type Specialty Care Team Description 03/25/2022 Office Visit Family Medicine Leslie Gonzalez M.D. [address] [place] [address] [phone] (Wo rk) Health Maintenance Due Date Last Done Comments CT Colonography 1950 Cologuard 1950 Hepatitis C Screening 1950 COVID-19 Vaccine (5 - Booster for 10/30/2021 09/04/2021, , Moderna series) 08/29/2020, Additional history exists Influenza Vaccine (#1) 2022 03/27/2021, 03/24/2020, 03/06/2020 Creatinine Level 01/18/2023 01/18/2022, 12/14/2021, 11/11/2021, Additional history exists Potassium Level 01/18/2023 01/18/2022, 12/14/2021, 11/11/2021, Additional history exists Sodium Level 01/18/2023 01/18/2022, 12/14/2021, 11/11/2021, Additional history exists Office Visit for Blood Pressure 01/20/2023 01/20/2022 Check / Re-check Visit: Chronic Disease, age 18+ 01/20/2023 01/20/2022 Mammogram 01/21/2023 01/21/2022, 01/20/2021, 01/01/2020, Additional history exists Colonoscopy 06/14/2024 06/14/2019, 04/19/2014, 04/19/2014 (Performed elsewhere), Additional history exists Colorectal Cancer Surveillance 06/14/2024 Fasting Glucose for Diabetes 01/18/2025 01/18/2022, 022, Screening 11/11/2021, Additional history exists Lipid (Cholesterol) Screening 01/18/2027 01/18/2022, 2020, 01/01/2020, Additional history exists DTaP,Tdap,and Td Vaccines (5 - Td 11/13/2031 11/12/2021, , or Tdap) 01/27/2010, Additional history exists Zoster Vaccines Completed 06/01/2019, 03/19/2019, 01/27/2010 Fall Risk Screen (Annual) Completed 06/11/2021 Depression Screening (Annual Completed 01/20/2022 PHQ-2) Pneumococcal vaccine (65+ years) Completed 01/20/2022, Procedures Procedure Name Priority Date/Time Associated Comments Diagnosis BI BREAST SCREENING RAD - Routine 01/21/2022 11:39 Screening Res ults for BILATERAL WITH (most inpatients AM CDT Mammogram Breast this procedure TOMOSYNTHESIS and all Cancer are in the outpatients) results section. DX WRIST RIGHT 3+ RAD - Routine 01/20/2022 9:51 Pain Wrist Right Re sults for VIEWS (most inpatients AM CDT this proced ure and all are in the outpatients) results section. LIPID PANEL, S Routine 01/18/2022 8:10 Hypercholesterole Resul ts for AM CDT delia this procedure Hypertension are in the Essential Primary results section. COMPREHENSIVE Routine 01/18/2022 8:10 Hypercholesterole Result s for METABOLIC PANEL, S/P AM CDT delia this procedure Hypertension are in the Essential Primary results section. from Last 3 Months Results BI Breast Screening Bilateral with Tomosynthesis (01/21/2022 11:39 AM CDT) Anatomical Region Laterality Modality Breast, Breast Imaging RST LOS, Breast Imaging ARZ LOS, [address] st Bilateral Mammography Imaging FLA LOS Specimen [...] TOMOSYNTHESIS Current study was evaluated with a [employer] Aided Detection (CAD) system. INDICATION: Screening mammogram. COMPARISON: Prior exam(s) were available and reviewed for comparison. DENSITY: c. The breast(s) are heterogene ously dense, which may obscure small masses. FINDINGS: No mammographic findings of ma lignancy. IMPRESSION: Negative. RECOMMENDATION: Annual Screening Mammogr am ASSESSMENT: BI-RADS: 1: Negative. Merrill Bee P.A.-C. [facility] BI PROCEDURES DX Wrist Right 3+ Views (01/20/2022 9:51 AM CDT) Anatomical Region Laterality Modality Upper Extremity, Wrist, Musculoskeletal RST LOS, Right Digital Radiography Musculoskeletal ARZ LOS, Muskuloskeletal FLA LOS Specimen (Source) Anatomical Collection Method Collection Time Re ceived Time Location / / Volume Laterality 01/20/2022 1:08 PM CDT Impressions 01/20/2022 1:09 PM CDT No fracture visualized. Mild degenerative change in wrist at STT and first CMC joint. Narrative 01/20/2022 1:09 PM CDT EXAM: DX WRIST RIGHT 3+ VIEWS Procedure Note Garfield Robison M.D. - 01/20/2022Form atting of this note might be different from the original. EXAM: DX WRIST RIGHT 3+ VIEWS IMPRESSION: No fracture visualized. Mild degenerativ e change in wrist at STT and first CMC joint. Merrill Bee P.A.-C. IMG DIAGNOSTIC IMAGING PROCE DURES (ABNORMAL) Lipid Panel (01/18/2022 8:10 AM CDT) athologist Signature Triglycerides 183 (H) mg/dL 01/18/2022 OWAT 11:56 AM CDT Comment: ----REFERENCE VALUE---- Normal: <150 mg/dL Borderline High: 150-199 mg/dL High: 200-499 mg/dL Very High: > or =500 mg/dL Cholesterol, Total 177 mg/dL 01/18/2022 11:56 AM C DT OWAT Comment: ----REFERENCE VALUE---- Desirable: < 200 mg/dL Borderline High: 200 - 239 mg/dL High: > or = 240 mg/dL Cholesterol, LDL, Calculated 81 mg/dL 01/18/2022 11:56 AM CDT OWAT Comment: ----REFERENCE VALUE---- Desirable: <100 mg/dL Above Desirable: 100-129 mg/dL Borderline High: 130-159 mg/dL High: 160-189 mg/dL Very High: >=190 mg/dL ----ADDITIONAL INFORMATION---- LDL cholesterol calculated using the Curran/NIH equation. Cholesterol, HDL 65 >=50 mg/dL 01/18/2022 11:56 AM CD T OWAT Cholesterol, Non-HDL, Calculated 112 mg/dL 022 11:56 AM CDT OWAT Comment: ----REFERENCE VALUE---- Desirable: <130 mg/dL Above Desirable: 130-159 mg/dL Borderline High: 160-189 mg/dL High: 190-219 mg/dL Very High: > or =220 mg/dL Fasting (8 HR or more) Yes 01/18/2022 11:07 AM CDT OWAT Specimen Anatomical Collection Method Collection Time Receive d Time (Source) Location / / Volume Laterality Blood (Blood, 01/18/2022 8:10 AM 01/19/20 22 Venous) CDT 11:07 AM CDT Merrill Bee P.A.-C. LAB BLOOD ADD-ON Performing Organization Address City/State/ZIP Code Phon e Number [facility] [address] [place] [address] [place] [address] System in [place] [address] [facility] Comprehensive Metabolic Panel (01/18/2022 8:10 AM CDT) P athologist Signature Potassium, P 4.6 3.6 - 5.2 01/18/2022 [facility] mmol/L 11:56 AM CDT Sodium, P 141 135 - 145 01/18/2022 [facility] mmol/L 11:56 AM CDT Chloride, P 101 98 - 107 01/18/2022 [place] mmol/L 11:56 AM CDT Bicarbonate, P 29 22 - 29 01/18/2022 [place] mmol/L 11:56 AM CDT Anion Gap, P 11 7 - 15 01/18/2022 [place] 11:56 AM CDT BUN (Blood Urea 20 6 - 21 01/18/2022 OW[place] Nitrogen), P mg/dL 11:56 AM CDT Creatinine 0.86 0.59 - 01/18/2022 [facility] 1.04 mg/dL 11:56 AM CDT eGFR-Black/Afric 78 >=60 01/18/2022 [facility] an [place] mL/min/BSA 11:56 AM CDT Comment: ----ADDITIONAL INFORMATION---- Estimated GFR calculated using the 2009 CKD_EPI creatinine equation. eGFR Non-Black/ 67 >=60 mL/min/BSA 01/18/2022 11:56 AM CDT [facility] Comment: ----ADDITIONAL INFORMATION---- Estimated GFR calculated using the 2009 CKD_EPI creatinine equation. Calcium, Total, P 9.5 8.8 - 10.2 mg/dL 01/18/2022 11:5 6 AM CDT [facility] Glucose, P 135 70 - 140 mg/dL 01/18/2022 11:56 AM CDT [facility] Protein, Total, P 6.9 6.3 - 7.9 g/dL 01/18/2022 11:56 AM CDT OW[place] Albumin, P 4.5 3.5 - 5.0 g/dL 01/18/2022 11:56 AM CDT [facility] Aspartate Aminotransferase 26 8 - 43 U/L 01/18/2022 1 1:56 AM CDT OW[place] (AST), P Alkaline Phosphatase, P 80 35 - 104 U/L 01/18/2022 11 :56 AM CDT OW[place] Alanine Aminotransferase (ALT), 20 7 - 45 U/L 022 11:56 AM CDT OWAT P Bilirubin, Total, P 0.2 <=1.2 mg/dL 01/18/2022 11:56 A M CDT OW[facility] Specimen Anatomical Collection Method Collection Time Receive d Time (Source) Location / / Volume Laterality Blood (Blood, 01/18/2022 8:10 AM 01/19/20 22 Venous) CDT 11:07 AM CDT Merrill Bee P.A.-C. LAB BLOOD ADD-ON Performing Organization Address City/State/ZIP Code Phon e Number [facility]- [address] [place] [address] [place] [address] System in [place] [address] from Last 3 Months Insurance Payer Benefit Plan Subscriber ID Effective Phone Address Typ e / Group Dates MEDICARE MEDICARE A [id number] 2013-Pre [address] 0 Medicare AND B 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 See document viewer. Care Teams Trailer Steerer Relationship Specialty Start Date End Date Merrill Bee P.A.-C. PCP - General 11/18/16 [address] [place] [phone]
--- OUTSIDE RECORDS SUMMARY | 2022-03-22 15:43 | XMS_ITS | Encounter Summary ---
:1950 Author Organization [facility] Address [address] [place] [address] Care Team Providers Name Role Phone Merrill Bee P.A.-C. Primary Care Provider [phone] Reason for Referral Outpatient (Routine) - Authorized Specialty Diagnoses / Procedures Referred By Contact Refer red To Contact Garfield Serrato M.B.B.S., [facility] Rhonda Munoz [address] [place] [phone] Referral ID Status Reason Start Date Expiration Date Visits V isits Requested Authorized [id number] Authorized 01/20/2022 01/20/2023 1 1 Scheduling Instructions Last AWV 01/20/2022, please schedule next Medicare Annual Wellness visit on or after 01/21/2023. Reason for Visit Reason Comments Medicare Annual Wellness Visit Subsequent Appointment Request (Routine) - Closed Specialty Diagnoses / Procedures Referred By Contact Refer red To Contact Family Medicine Referral ID Status Reason Start Date Expiration Date Visits Requ ested Visits Authorized [id number] Closed 01/19/2022 01/19/2023 1 1 Encounter Details Date Type Department Care Team Description 01/20/2022 Office Visit Department of Family Kathleen Bee P.A.-C. [address] [place] [phone] Annual Medicare Medicine, Anita Kirby R.N. Examination Return Clinic, in [place], (Prima ry Dx) [address] [place] [phone] Social History Tobacco Use Types Packs/Day Years [...] containing 4 or more times a w [place] 10/05/2021 alcohol? How many drinks containing alcohol [...] or relatives? How often do you attend restoration or 1 to 4 times per year 07/2021 advent services? Do you belong to any clubs or Yes 10/05/2021 organizations such as restoration groups, unions, fraternal or athletic groups, or [...] place to sleep or slept in a assisted (including now)? Education Answer Date Recorded What is the highest level of school Master's degree (e.g., M A, MS, 12/01/2018 you have completed or the highest Faustina, MEd, PROJECTS MANAGER, GIORGIO) degree you have received? Sex Assigned at Date Recorded Female 03/07/2018 9:31 AM CDT documented as of this encounter Progress Notes Anita Crespo R.N. - 01/20/2022 8:45 AM CDT HEALTH ASSESSMENT Reason For Visit Patient presents with Medicare Annual Wellness Visit Subsequent VITALS: Blood Pressure: 135/77 (Average) (01/20/2022 8:16 AM) Temperature: 36.2 ??C (01/20/2022 8:16 AM) Temp Source: Temporal (01/20/2022 8:16 AM) Pulse Rate: 89 (01/20/2022 8:16 AM) Resp Rate: 16 (01/20/2022 8:16 AM) BMI (Calculated): 33 kg/m?? (01/20/2022 8:16 AM) Height: 168 cm (01/20/2022 8:16 AM) Weight: 93 kg (01/20/2022 8:16 AM) PHQ-2 PHQ-2 Score: 0 PHQ-9 PHQ9 Score 11/08/2016 PHQ-9 Total Score (max 27) 0 Mini Cog Mini-COG not completed. Cognitive function assessed by direct observation without concerns. FUNCTIONAL/HOME ENVIRONMENT History of falls: Have you fallen within the last year or do you fear you might fall?: Yes (:33 PM) Do you use an assisted device to walk? (Walker, cane, wheelchair, crutch): No (06/11/2021 2:33 PM) Today, do you feel any of the following? Weak, dizzy, shaky, or unsteady?: No (06/11/2021 2:33 PM) Have you taken any medication within the last 6 hours which may make you feel drowsy? Such as sleep,pain, or anxiety medication: No (06/11/2021 2:33 PM) The following portions of the patients history were reviewed and updated as appropriate: allergies, medications, family history, medical history, problem list, social history, surgical history and careteams/suppliers. Home Environment: Nicholas's home has the following: two stories, functional smoke alarms and handrails on stairs/steps. For the multiple stories, the home has: stairs. Home Environment Note: Patient lives in a two story home. Patient does not have a fire extinguisher,however she does have funcitonal carbon monoxide detectors. Advanced Directive Status: Advance directive completed - On file Patient did take information on advanced directives today, she may want to update her existing one on file. Patient also took paperwork on release of information and will return it to the clinic to be added to her chart. Anita Crespo R.N. documented in this encounter Plan of Treatment Upcoming Encounters Date Type Specialty Care Team Description 03/25/2022 Office Visit Family Medicine Leslie Gonzalez M.D. [address] [place] [phone] (Wo rk) Scheduled Referrals Name Type Priority Associated Diagnoses Order S rebeka Primary Care nurse Outpatient Referral Routine Ex pected: visit (clinic) - 01/21/[address] [facility] Region; (Approxim ate), Medicare Annual Expires: Wellness 04/22/2023 documented as of this encounter Visit Diagnoses Diagnosis Annual Medicare Examination Return - Kassidy nicholas documented in this encounter Care Teams Electric Freight Car Operator Relationship Specialty Start Date End Date Merrill Bee P.A.-C. PCP - General 11/18/16 [address] [place] [phone] documented as of this encounter
--- OUTSIDE RECORDS SUMMARY | 2022-03-22 15:43 | XMS_ITS | Encounter Summary ---
:1950 Author Organization [facility] Address [address] [place] [address] Care Team Providers Name Role Phone Merrill Bee P.A.-C. Primary Care Provider [phone] Reason for Referral Specialty Diagnoses / Procedures Referred By Contact Refer red To Contact Merrill Bee P. A.-C. R [facility] Region [address] [place] [phone] Referral ID Status Reason Start Date Expiration Date Visits Requ ested Visits Authorized Encounter Details Date Type Department Care Team Description 02/21/2022 Orders Only [facility] PCP [facility] Merrill Bee P.A.-C. [address] [place] [phone] (Wo rk) Social History Tobacco Use Types Packs/Day Years Used Date Smoking Tobacco: Former Cigarettes Quit : 03/25/1994 Smokeless Tobacco: Never Alcohol Use Standard Drinks/Week Comments Yes 25 (1 standard drink = 0.6 oz pure 2-3 d rinks every night (mixed drink alcohol) or wine) Alcohol Habits Answer Date Recorded How often do you have a drink containing 4 or more times a w [place] 10/05/2021 alcohol? How many drinks containing alcohol [...] or relatives? How often do you attend pentecostalism or 1 to 4 times per year 07/2021 orthodoxy services? Do you belong to any clubs or Yes 10/05/2021 organizations such as pentecostalism groups, unions, fraternal or athletic groups, or [...] place to sleep or slept in a detention (including now)? Education Answer Date Recorded What is the highest level of school Master's degree (e.g., M A, MS, 12/01/2018 you have completed or the highest Faustina, MEd, UPPERS EDGE BURNISHER, GIORGIO) degree you have received? Sex Assigned at Date Recorded Female 03/07/2018 9:31 AM CDT documented as of this encounter Plan of Treatment Upcoming Encounters Date Type Specialty Care Team Description 03/25/2022 Office Visit Family Medicine Leslie Gonzalez M.D. [address] [place] [phone] (Wo rk) Scheduled Referrals Name Type Priority Associated Order Schedule Diagnoses Covid immunization Outpatient Referral Routine Ex pected: office visit 02/21/2022 Immuno/Booster (Approximate) , Expires: 02/21/2023 documented as of this encounter Visit Diagnoses Not on filedocumented in this encounter Care Teams Precision Grinder Relationship Specialty Start Date End Date Merrill Bee P.A.-C. PCP - General 11/18/[address] [place] [phone] documented as of this encounter
--- OUTSIDE RECORDS SUMMARY | 2022-03-22 15:43 | XMS_ITS | Encounter Summary ---
:1950 Author Organization [facility] Address [address] [place] [address] Care Team Providers Name Role Phone Merrill Bee P.A.-C. Primary Care Provider [phone] Reason for Referral Outpatient (Routine) - Closed Specialty Diagnoses / Procedures Referred By Contact Refer red To Contact Diagnoses Pain Wrist Right Merrill Bee P.A.-C. [facility] [place] [facility] Procedures DX Wrist Right 3+ Views [address] [place] [phone] Referral ID Status Reason Start Date Expiration Date Visits Requ ested Visits Authorized [id number] Closed 01/20/2022 01/20/2023 1 1 Reason for Visit Outpatient (Routine) - Closed Specialty Diagnoses / Procedures Referred By Contact Refer red To Contact Diagnoses Pain Wrist Right Merrill Bee P.A.-C. [facility] [place] [facility] Procedures DX Wrist Right 3+ Views [address] [place] [phone] Referral ID Status Reason Start Date Expiration Date Visits Requ ested Visits Authorized [id number] Closed 01/20/2022 01/20/2023 1 1 Encounter Details Date Type Department Care Team Description 01/20/2022 Hospital Encounter Department of Merrill Bee Pai n Wrist Right Radiology in [place], [place] [address] [phone] Social History Tobacco Use Types Packs/Day Years Used Date Smoking Tobacco: Former Cigarettes Quit : 03/25/1994 Smokeless Tobacco: Never Alcohol Use Standard Drinks/Week Comments Yes 25 (1 standard drink = 0.6 oz pure 2-3 d rinks every night (mixed drink alcohol) or wine) Alcohol Habits Answer Date Recorded How often do you have a drink containing 4 or more times a w [place] 10/05/2021 alcohol? How many drinks containing alcohol [...] or relatives? How often do you attend buddhism or 1 to 4 times per year 07/2021 mormonism services? Do you belong to any clubs or Yes 10/05/2021 organizations such as buddhism groups, unions, fraternal or athletic groups, or [...] place to sleep or slept in a halfway (including now)? Education Answer Date Recorded What is the highest level of school Master's degree (e.g., M A, MS, 12/01/2018 you have completed or the highest Faustina, MEd, MAIL SORTER AND DELIVERY, GIORGIO) degree you have received? Sex Assigned [...] Office Visit Family Medicine Leslie Gonzalez M.D. [address] [place] [phone] (Wo rk) documented as of this encounter Procedures Procedure Name Priority Date/Time Associated Comments Diagnosis DX WRIST RIGHT 3+ RAD - Routine 01/20/2022 9:51 Pain Wrist Right Re sults for this VIEWS (most inpatients AM CDT procedure a re in and all the results outpatients) section. documented in this encounter Results DX Wrist Right 3+ Views (01/20/2022 9:51 [...] Bee P.A.-C. IMG DIAGNOSTIC IMAGING PROCE DURES documented in this encounter Visit Diagnoses Diagnosis Pain Wrist Right documented in this encounter Care Teams Property Portfolio Officer Relationship Specialty Start Date End Date Merrill Bee P.A.-C. PCP - General 11/18/[address] [place] [phone] documented as of this encounter
--- OUTSIDE RECORDS SUMMARY | 2022-03-22 15:44 | XMS_ITS | Encounter Summary ---
:1950 Author Organization [facility] Address [address] [place] [address] Care Team Providers Name Role Phone Merrill Bee P.A.-C. Primary Care Provider [phone] Encounter Details Date Type Department Care Team Description 10/22/2021 Ancillary Procedure Department of Vascular Social History Tobacco Use Types Packs/Day Years Used Date Smoking Tobacco: Former Cigarettes Quit : 1993 Smokeless Tobacco: Never Alcohol Use Standard Drinks/Week Comments Yes 16 (1 standard drink = 0.6 oz pure 2-3 d rinks every night (mixed drink alcohol) or wine) Alcohol Habits Answer Date Recorded How often do you have a drink containing 4 or more times a w [place] 10/05/2021 alcohol? How many drinks containing alcohol [...] or relatives? How often do you attend yarsanism or 1 to 4 times per year 07/2021 baptist services? Do you belong to any clubs or Yes 10/05/2021 organizations such as yarsanism groups, unions, fraternal or athletic groups, or [...] place to sleep or slept in a prison (including now)? Education Answer Date Recorded What is the highest level of school Master's degree (e.g., M A, MS, 12/01/2018 you have completed or the highest Faustina, MEd, NURSING PROGRAM COORDINATOR, GIORGIO) degree you have received? Sex Assigned at Date Recorded Female 03/07/2018 9:31 AM CDT documented as of this encounter Plan of Treatment Upcoming Encounters Date Type Specialty Care Team Description 03/25/2022 Office Visit Family Medicine Leslie Gonzalez M.D. [address] [place] [phone] (Wo rk) documented as of this encounter Procedures Procedure Name Priority Date/Time Associated Diagnosis Comme nts VASCULAR IMAGE EXAM Routine 10/22/2021 1:25 PM Re sults for this CDT procedure are i n the results section. documented in this encounter Results Foot-Vascular Image Exam (10/22/2021 1:25 PM CDT) Specimen (Source) Anatomical Collection Method Collection Time Re ceived Time Location / / Volume Laterality 10/22/2021 1:23 PM CDT Narrative [facility] - 10/22/2021 1:25 PM CDT This order has been created and auto-finalized to support the import of images acquired without order. The clini tiago documentation to support these images can be found on the encounter esteban t produced images. Provider Not In System IMG NON RAD IMAGING PROCEDUR ES Performing Organization Address City/State/ZIP Code Phon e Number [facility] NA documented in this encounter Visit Diagnoses Not on filedocumented in this encounter Care Teams Light Adjuster Relationship Specialty Start Date End Date Merrill Bee P.A.-C. PCP - General 11/18/16 [address] [place] [phone] documented as of this encounter
--- OUTSIDE RECORDS SUMMARY | 2022-03-22 15:44 | XMS_ITS | Encounter Summary ---
:1950 Author Organization [facility] Address [address] [place] [address] Care Team Providers Name Role Phone Merrill Bee P.A.-C. Primary Care Provider [phone] Reason for Visit Reason Comments Med Refill Encounter Details Date Type Department Care Team Description 12/29/2021 Refill Department of Family Medicine, Merrill Rodriguez P.A.-C. Med Refill [facility], in [address] [place] [phone] [place] [address] [place] [address] [phone] Social History Tobacco Use Types Packs/Day Years Used Date Smoking Tobacco: Former Cigarettes Quit : 1993 Smokeless Tobacco: Never Alcohol Use Standard Drinks/Week Comments Yes 16 (1 standard drink = 0.6 oz pure 2-3 d rinks every night (mixed drink alcohol) or wine) Alcohol Habits Answer Date Recorded How often do you have a drink containing 4 or more times a w [place] 10/05/2021 alcohol? How many drinks containing alcohol [...] or relatives? How often do you attend spiritism or 1 to 4 times per year 07/2021 amish services? Do you belong to any clubs or Yes 10/05/2021 organizations such as spiritism groups, unions, fraternal or athletic groups, or [...] place to sleep or slept in a skilled nursing (including now)? Education Answer Date Recorded What is the highest level of school Master's degree (e.g., M Gogo, MS, 12/01/2018 you have completed or the highest Faustina, MEd, MEDICAL LABORATORY TECHNICIANS, GIORGIO) degree you have received? Sex Assigned at Date Recorded Female 03/07/2018 9:31 AM CDT documented as of this encounter Plan of Treatment Upcoming Encounters Date Type Specialty Care Team Description 03/25/2022 Office Visit Family Medicine Leslie Gonzalez M.D. [address] [place] [phone] (Wo rk) documented as of this encounter Visit Diagnoses Not on filedocumented in this encounter Care Teams Dump Grader Relationship Specialty Start Date End Date Merrill Bee P.A.-C. PCP - General 11/18/[address] [place] [phone] documented as of this encounter
--- OUTSIDE RECORDS SUMMARY | 2022-03-22 15:44 | XMS_ITS | Encounter Summary ---
:1950 Author Organization [facility] Address [address] [place] [address] Care Team Providers Name Role Phone Merrill Bee P.A.-C. Primary Care Provider [phone] Encounter Details Date Type Department Care Team Description 10/26/2021 Hospital Encounter Department of Merrill Bee Hyp erkalemia Laboratory Medicine in [place], [place] 225 [facility] [address] [place] [phone] Social History Tobacco Use Types Packs/Day Years Used Date Smoking Tobacco: Former Cigarettes Quit : 1993 Smokeless Tobacco: Never Alcohol Use Standard Drinks/Week Comments Yes 16 (1 standard drink = 0.6 oz pure 2-3 d rinks every night (mixed drink alcohol) or wine) Alcohol Habits Answer Date Recorded How often do you have a drink containing 4 or more times a w [place] 10/05/2021 alcohol? How many drinks containing alcohol [...] or relatives? How often do you attend gnosticism or 1 to 4 times per year 07/2021 bahai services? Do you belong to any clubs or Yes 10/05/2021 organizations such as gnosticism groups, unions, fraternal or athletic groups, or school groups? How often do you attend meetings of the More than 4 times [facility] year 10/05/2021 clubs or organizations you belong [...] minutes do you engage in exercise at is 20 min 10/05/2021 level? Stress Answer [...] place to sleep or slept in a nursing home (including now)? Education Answer Date Recorded What is the highest level of school Master's degree (e.g., Adrien Bowens, MS, 12/01/2018 you have completed or the highest Faustina, MEd, GUITAR TEACHER, GIORGIO) degree you have received? Sex Assigned [...] Max acetaminophen dose: 4000mg in 24 hours. B complex-vitamin Take 1 capsule by 0 10/22/2015 (for_SUPER B-50) mouth daily. capsule CALCIUM Take by mouth 2 (two) 0 01/27/2010 CARBONATE/VITAMIN D3 times a day. (CALCIUM 600 WITH VITAMIN D3 ORAL) cholecalciferol, Take 1,000 Units by 0 vitamin D3, 25 mcg mouth daily. (1,000 Unit) tablet DOCOSAHEXANOIC daily. 0 12/13/2012 ACID/EPA (FISH OIL ORAL) esomeprazole (NexIUM) Take 20 mg by mouth 0 12/[address] capsule daily. GLUCOSAMINE/CHONDROITI daily. 0 10/05/2010 N SULF A (GLUCOSAMINE-CHONDROIT IN ORAL) latanoprost Administer 1 drop 0 08/02/2014 (for_XALATAN) 0.005 % into both eyes at ophthalmic solution bedtime. magnesium oxide Take 400 mg by mouth 0 (MAG-OX) 400 mg (241.3 daily. mg magnesium) tablet multivitamin Take 1 tablet by 0 (THERAGRAN) tablet mouth daily. polyethylene glycol Take 17 g by mouth 0 06/22/19 21 (MIRALAX) 17 gram/dose daily. Measure 17g in oral powder the cap provided and dissolve completely in 8 ounces of liquid as directed and drink once a day TURMERIC ORAL Take 1 capsule by 0 mouth daily. VIT C/VIT Take 1 tablet by 0 10/22/2015 E/LUTEIN/MIN/OMEGA-3 mouth daily. (OCUVITE ORAL) amLODIPine (NORVASC) 5 Take 1 tablet (5 mg 90 tablet 3 10/0410/28/2021 mg tablet total) by mouth daily. aspirin 325 mg tablet Take 325 mg by mouth 0 12/17/2021 daily. atorvastatin (LIPITOR) TAKE 1 TABLET BY 90 tablet 3 021 01/20/2022 40 mg tablet MOUTH AT BEDTIME DULoxetine (CYMBALTA) Take 2 capsules (120 180 capsule 3 02/202101/20/[address] capsule mg total) by mouth daily. furosemide (LASIX) 20 Take 1 tablet (20 mg 1 tablet 0 10/0511/12/2021 mg tablet total) by mouth daily. lisinopriL Take 1 tablet by 90 tablet 3 07/22/2021 10/29/19 22 (PRINIVIL,ZESTRIL) 20 mouth once daily mg tablet meclizine (ANTIVERT) Take 1 tablet (25 mg 90 tablet 3 01/1212/30/2021 25 mg tablet total) by mouth 3 (three) times a day as needed for dizziness. documented as of this encounter Plan of Treatment Upcoming Encounters Date Type Specialty Care Team Description 03/25/2022 Office Visit Family Medicine Leslie Gonzalez M.D. [address] [place] [phone] (Wo nicho) documented as of this encounter Procedures Procedure Name Priority Date/Time Associated Diagnosis Comme nts BASIC METABOLIC Routine 10/26/2021 10:15 Hyperkalemia Results for this PANEL, S/P AM CDT procedure are i n the results section. documented in this encounter Results (ABNORMAL) Basic Metabolic Panel (10/26/2021 10:15 AM CDT) P athologist Signature Potassium, P 6.2 (CH) 3.6 - 5.2 10/26/2021 [facility] mmol/L 2:28 PM CDT Comment: Results repeated. Sodium, P 137 135 - 145 mmol/L 10/26/2021 2:08 PM CDT [facility] Chloride, P 102 98 - 107 mmol/L 10/26/2021 2:08 PM CDT [facility] Bicarbonate, P 23 22 - 29 mmol/L 10/26/2021 2:09 PM C DT [facility] Anion Gap, P 12 7 - 15 10/26/2021 2:08 PM CDT [facility] BUN (Blood Urea Nitrogen), P 27 (H) 6 - 21 mg/dL 10/27/19 2:09 PM CDT [facility] Creatinine 0.88 0.59 - 1.04 mg/dL 10/26/2021 2:09 PM CD T [facility] eGFR-Black/ 75 >=60 mL/min/BSA 2021 2:09 PM CDT [facility] Comment: ----ADDITIONAL INFORMATION---- Estimated GFR calculated using the 2009 CKD_EPI creatinine equation. eGFR Non-Black/ 65 >=60 mL/min/BSA 2:09 PM CDT [facility] Comment: ----ADDITIONAL INFORMATION---- Estimated GFR calculated using the 2009 CKD_EPI creatinine equation. Calcium, Total, P 9.5 8.8 - 10.2 mg/dL 10/26/2021 2:09 PM CDT [facility] Glucose, P 115 70 - 140 mg/dL 10/26/2021 2:09 PM CDT O ROGERIO Specimen Anatomical Collection Method Collection Time Receive d Time (Source) Location / / Volume Laterality Blood (Blood, 10/26/2021 10:15 10/26/2021 1:21 Venous) AM CDT PM CDT Merrill Bee P.A.-C. LAB BLOOD ADD-ON Performing Organization Address City/State/ZIP Code Phon e Number [facility] [address] [address] [facility] [place] [address] System in [place] [address] documented in this encounter Visit Diagnoses Diagnosis Hyperkalemia documented in this encounter Care Teams Cofounder Relationship Specialty Start Date End Date Merrill Bee P.A.-C. PCP - General 11/18/16 [address] [place] [phone] documented as of this encounter
--- OUTSIDE RECORDS SUMMARY | 2022-03-22 15:44 | XMS_ITS | Encounter Summary ---
:1950 Author Organization [facility] Address [address] [place] [address] Care Team Providers Name Role Phone Merrill Bee P.A.-C. Primary Care Provider [phone] Reason for Referral Outpatient (Routine) - Closed Specialty Diagnoses / Procedures Referred By Contact Refer red To Contact Family Medicine Merrill Bee P. A.-C. [facility] [address] [phone] Referral ID Status Reason Start Date Expiration Date Visits Requ ested Visits Authorized [id number] Closed 11/12/2021 11/12/2022 1 1 Reason for Visit Reason Comments Hypertension Did labs yesterday. Has jayda rds of home blood pressure. No other concerns. Outpatient (Routine) - Closed Specialty Diagnoses / Procedures Referred By Contact Refer red To Contact Family Medicine Merrill Bee P. A.-C. [address] [phone] Referral ID Status Reason Start Date Expiration Date Visits Requ ested Visits Authorized [id number] Closed 10/28/2021 10/28/2022 1 1 Encounter Details Date Type Department Care Team Description 11/12/2021 Office Visit Department of Merrill Self Ac rocyanosis (HCC) (Primary Dx); MedicinePreet P.A.-C. Hypertension Essential Primary; Clinic, in [address] [facility]kal[facility]; [facility] [place] Dysphagia; [address] [phone] Preoperative Exam [place] MATIAS [phone] (Work) [phone] Social History Tobacco Use Types Packs/Day Years Used Date Smoking Tobacco: Former Cigarettes Quit : 1993 Smokeless Tobacco: Never Alcohol Use Standard Drinks/Week Comments Yes 16 (1 standard drink = 0.6 oz pure 2-3 d rinks every night (mixed drink alcohol) or wine) Alcohol Habits Answer Date Recorded How often do you have a drink containing 4 or more times a w [place] 10/05/2021 alcohol? How many drinks containing alcohol [...] or relatives? How often do you attend faith or 1 to 4 times per year 07/2021 muslim services? Do you belong to any clubs or Yes 10/05/2021 organizations such as faith groups, unions, fraternal or athletic groups, or [...] have completed or the highest Faustina, MEd, JOINT TERMINAL ATTACK CONTROLLER, GIORGIO) degree you have received? Sex Assigned at Date Recorded Female 03/07/2018 9:31 AM CDT documented as of this encounter Last Filed Vital Signs Vital Sign Reading Time Taken Comments Blood Pressure 133/80 11/12/2021 10:11 AM CDT Pulse 89 11/12/2021 10:11 AM CDT Temperature 36.2 ??C (97.1 ??F) 11/12/2021 10:06 AM CDT Respiratory Rate 16 11/12/2021 10:06 AM CDT Oxygen Saturation - - Inhaled Oxygen Concentration - - Weight 92.7 kg (204 lb 4.1 oz) 11/12/2021 10:06 AM CDT Height - - Body Mass Index 33.02 10/22/2021 12:41 PM CDT documented in this encounter Progress Notes Merrill Bee P.A.-C. - 11/12/2021 10:30 AM CDT SUBJECTIVE CHIEF COMPLAINT / REASON FOR VISIT Steph Simmons is a 71 y.o. female who presents for evaluation of Hypertension (Did labs yesterday. Has records of home blood pressure. No other concerns.). HISTORY OF PRESENT ILLNESS Steph presents today for follow-up. 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 We started her on amlodipine at the recommendation of vascular Medicine. 5 mg worked well for her blood pressure control but not quite good enough so we increased to 10 mg and unfortunately she has now developed lower extremity edema. She also has a history of hyperkalemia and previously had been on lisinopril which may have made this worse. We discontinued the lisinopril. She also has dysphagia and we have set her up alex EGD and that is scheduled for tomorrow. She is in today to discuss the results of her blood pressure and her lab work. Her potassium was just slightly elevated on her follow-up lab work. She does continue to struggle with epigastric discomfort with swallowing. She also has some knee pain and will likely need a knee replacement surgery coming up possibly later this summer. She is able to walk two city blocks without having chest pain. She does get generalized shortness of breath but this seems to be secondary to deconditioning. Patient Active Problem List Diagnosis ??? Hypercholesterolemia ??? Neuropathy Peripheral ??? Hypertension Essential Primary ??? Spinal Stenosis Lumbosacral Region ??? Edema Leg ??? Alcohol Moderate Or Severe Use Disorder (Dependence) Uncomplicated (HCC) ??? Acrocyanosis (HCC) OBJECTIVE Vitals: 11/12/21 1006 11/12/21 1011 BP: 141/81 133/80 BP Location: Left arm Left arm Patient Position: Sitting Sitting Cuff Size: Large Large Pulse: 88 89 Resp: 16 Temp: 36.2 ??C TempSrc: Temporal Weight: 92.7 kg Body mass index is 33.02 kg/m??. PHYSICAL EXAMINATION General: Patient appears in no acute distress. Heart: Regular rate rhythm no murmurs Lungs: Clear to auscultation ASSESSMENT / PLAN #1 Acrocyanosis (HCC) This has responded to amlodipine so we will continue that for now but at a lower dose will decrease this to 5 mg daily #2 Hypertension Essential Primary I am going to add in losartan and hydrochlorothiazide at a small dose. I will see her back in a month with an electrolyte panel. #3 Hyperkalemia I am hopeful that the hydrochlorothiazide will help with this. Her potassium is acceptable now but she has been known to have hyperkalemia in the past when she was on lisinopril. This should not be as bad with the losartan #4 Dysphagia She will follow-up for her EGD as scheduled tomorrow #5 Preoperative Exam He is ASA class two for surgery. Good to go. No restrictions. Total time spent 30 minutes Merrill Bee P.A.-C. documented in this encounter Plan of Treatment Upcoming Encounters Date Type Specialty Care Team Description 03/25/2022 Office Visit Family Medicine Leslie Gonzalez M.D. [address] [place] [phone] (Wo rk) Scheduled Referrals Name Type Priority Associated Diagnoses Order S rebeka Family Medicine Outpatient Referral Routine Expec marc: office visit 12/12/2021 (clinic) (Approximate), Expires: 02/12/2023 documented as of this encounter Results Basic Metabolic Panel (12/14/2021 10:32 AM CDT) P athologist Signature Potassium, P 5.1 3.6 - 5.2 12/14/2021 [facility] mmol/L 1:50 PM CDT Sodium, P 138 135 - 145 12/14/2021 [facility] mmol/L 1:50 PM CDT Chloride, P 98 98 - 107 12/14/2021 [facility] mmol/L 1:50 PM CDT Bicarbonate, P 28 22 - 29 12/14/2021 [facility] mmol/L 1:50 PM CDT Anion Gap, P 12 7 - 15 12/14/2021 [facility] 1:50 PM CDT BUN (Blood Urea 17 6 - 21 12/14/2021 [facility] Nitrogen), P mg/dL 1:50 PM CDT Creatinine 0.78 0.59 - 12/14/2021 [facility] 1.04 mg/dL 1:50 PM CDT eGFR-Black/Afric 87 >=60 12/14/2021 [facility] an [place] mL/min/BSA 1:50 PM CDT Comment: ----ADDITIONAL INFORMATION---- Estimated GFR calculated using the 2009 CKD_EPI creatinine equation. eGFR Non-Black/ 76 >=60 mL/min/BSA 1:50 PM CDT [facility] Comment: ----ADDITIONAL INFORMATION---- Estimated GFR calculated using the 2009 CKD_EPI creatinine equation. Calcium, Total, P 9.9 8.8 - 10.2 mg/dL 12/14/2021 1:50 PM CDT [facility] Glucose, P 123 70 - 140 mg/dL 12/14/2021 1:50 PM CDT O ROGERIO Specimen Anatomical Collection Method Collection Time Receive d Time (Source) Location / / Volume Laterality Blood (Blood, 12/14/2021 10:32 12/14/2021 1:23 Venous) AM CDT PM CDT Merrill Bee P.A.-C. LAB BLOOD ADD-ON Performing Organization Address City/State/ZIP Code Phon e Number [facility]- [address] [place] [address] [place] [address] System in [place] [address] documented in this encounter Visit Diagnoses Diagnosis Acrocyanosis (HCC) - Primary Hypertension Essential Primary Hyperkalemia Dysphagia Preoperative Exam documented in this encounter Care Teams Coffee Weigher Relationship Specialty Start Date End Date Merrill Bee P.A.-C. PCP - General 11/18/16 [address] [place] [phone] documented as of this encounter
--- OUTSIDE RECORDS SUMMARY | 2022-03-22 15:44 | XMS_ITS | Encounter Summary ---
:1950 Author Organization [facility] Address [address] [place] [address] Care Team Providers Name Role Phone Merrill Bee P.A.-C. Primary Care Provider [phone] Reason for Referral Outpatient (Routine) - Closed Specialty Diagnoses / Procedures Referred By Contact Refer red To Contact Diagnoses Atherosclerosis Arteriosclerosis Obliterans Lower Extremity With Claudication (HCC) [facility] Procedures Lower Extremity Arterial (BHANU) - Exercise (Claudication) P.A.-C. [address] [place] [address] Referral ID Status Reason Start Date Expiration Date Visits Requ ested Visits Authorized [id number] Closed 10/15/2021 10/15/2022 1 1 Reason for Visit Outpatient (Routine) - Closed Specialty Diagnoses / Procedures Referred By Contact Refer red To Contact Diagnoses Atherosclerosis Arteriosclerosis Obliterans Lower Extremity With Claudication (HCC) [facility] Procedures Lower Extremity Arterial (BHANU) - Exercise (Claudication) P.A.-CGiovany [address] [place] [address] Referral ID Status Reason Start Date Expiration Date Visits Requ ested Visits Authorized [id number] Closed 10/15/2021 10/15/2022 1 1 Encounter Details Date Type Department Care Team Description 10/22/2021 Hospital Encounter Department of Lawson Bee Vascular Medicine Merlin Momin in [place]. [place] [address] Extremity With [address] [place], [place] Claudication ([facility]) [place] [address] [phone] Social History Tobacco Use Types Packs/Day Years Used Date Smoking Tobacco: Former Cigarettes Quit : 1993 Smokeless Tobacco: Never Alcohol Use Standard Drinks/Week Comments Yes 16 (1 standard drink = 0.6 oz pure 2-3 d rinks every night (mixed drink alcohol) or wine) Alcohol Habits Answer Date Recorded How often do you have a drink containing 4 or more times a w [place] 10/05/2021 alcohol? How many drinks containing alcohol [...] or relatives? How often do you attend pentecostal or 1 to 4 times per year 07/2021 mandaen services? Do you belong to any clubs or Yes 10/05/2021 organizations such as pentecostal groups, unions, fraternal or athletic groups, or [...] place to sleep or slept in a alf (including now)? Education Answer Date Recorded What is the highest level of school Master's degree (e.g., M A, MS, 12/01/2018 you have completed or the highest Faustina, MEd, TELEPHONE TECHNICIAN, GIORGIO) degree you have received? Sex Assigned [...] DR capsule mg total) by mouth daily. lisinopriL Take 1 [...] Office Visit Family Medicine Leslie Gonzalez M.D. [address] [place] [phone] (Wo rk) documented as of this encounter Procedures Procedure Name Priority Date/Time Associated Diagnosis Comme nts LOWER EXTREMITY Routine 10/22/2021 11:23 Atherosclerosis Resul ts for this ARTERIAL (BHANU) - AM CDT Arteriosclerosis procedu re are in EXERCISE Obliterans Lower the results (CLAUDICATION) Extremity With section. Claudication (HCC) documented in this encounter Results Lower Extremity Arterial (BHANU) - Exercise (Claudication) (10/22/2021 11:23 AM CDT) Anatomical Region Laterality Modality Other Specimen (Source) Anatomical Collection Method Collection Time Re ceived Time Location / / Volume Laterality 10/22/2021 9:56 AM CDT Narrative 10/22/2021 9:56 AM CDT Right: Doppler Waveforms: ? Normal at all levels evaluated. ?? Resting Index: ? BHANU (PT)- ??1 .01 ?BHANU (DP)- ??0.94 ?TBI - ??0.71 ?? Post-exercise BHANU: ? 0.81 ??Post-Exercise CF Doppler: ? Normal. ?? Left: Doppler Waveforms: ? Normal at all levels evaluated. ?? Resting Index: ? BHANU (PT)- ??0.96 ?BHANU (DP)- ??1.03 ?TBI- ??0.23 ?? Post- exercise BHANU: ? 0.88 ??Post-Exercise CF Doppler: ? Normal. ?? General: Patient exercised at reduced sp eed of 1.0 mph (10% grade) for 43 (76 yards). ?? Standard protocol: ??2.0 mph (10% grade) for 5 minutes (283 yards). ??Onset of symptoms at 0'30 (11 yards). ? ?Exercise terminated due to shortness of breath. ?? Conclusions: No significant peripheral a rtery disease in the lower extremities. ??Normal ankle/brachial indices and Doppler wave signals at rest and following exercise. Exercised at a reduced speed (1.0 mph), terminated at 76 yards due to luis a rtness of breath. ??Exercise ECG negative for isch emic changes. ??Comparison: No prior studies. Procedure Note Yovani Knowles M.D., M.S. - 10/23/19 22 Right: Doppler Waveforms: Normal at all levels evaluated. Resting Index: BHANU (PT)- 1.01 BHANU (DP)- 0.94 TBI- 0.71 Post-exercise BHANU: 0.81 Post-Exercise CF Doppler: Normal. Left: Doppler Waveforms: Normal at all l evels evaluated. Resting Index: BHANU (PT)- 0.96 BHANU (DP)- 1.03 TBI- 0.23 Post-exercise BHANU: 0.88 Post-Exercise CF Doppler: Normal. General: Patient exercised at reduced sp eed of 1.0 mph (10% grade) for (76 yards). Standard protocol: 2.0 mph (10% grade) for 5 minutes (283 yards). Onset of symptoms at 0'30 (11 yards). Exercise terminated due to shortness of breath. Conclusions: No significant peripheral a rtery disease in the lower extremities. Normal ankle/brachial indices and Doppler wave signals at rest and following exercise. Exercised at a reduced speed (1.0 mph), terminated at 76 yards due to shortness of breath. Exercise ECG negative for ischem ic changes. Comparison: No prior studies. Merrill Bee P.A.-C. CV VASCULAR PROCEDURES documented in this encounter Visit Diagnoses Diagnosis Atherosclerosis Arteriosclerosis Obliter ans Lower Extremity With Claudication (HCC) documented in this encounter Care Teams Fixed Route Bus Operator Relationship Specialty Start Date End Date Merrill Bee P.A.-C. PCP - General 11/18/16 [address] [place] [address] documented as of this encounter
--- OUTSIDE RECORDS SUMMARY | 2022-03-22 15:44 | XMS_ITS | Encounter Summary ---
:1950 Author Organization [facility] Address [address] [place] [address] Care Team Providers Name Role Phone Merrill Bee P.A.-C. Primary Care Provider [phone] Encounter Details Date Type Department Care Team Description 11/09/2021 Lab Urgent Care in [place] , Encounter For [place] [facility] Pre[facility]cedural [facility] [address] Examination (COVID-19) [place] [address] [place], [place] [phone] (Wo rk) Social History Tobacco Use Types [...] containing 4 or more times a w [place] 10/05/2021 alcohol? How many drinks containing alcohol [...] or relatives? How often do you attend baptism or 1 to 4 times per year 07/2021 baptism services? Do you belong to any clubs or Yes 10/05/2021 organizations such as baptism groups, unions, fraternal or athletic groups, or [...] place to sleep or slept in a mcfp (including now)? Education Answer Date Recorded What is the highest level of school Master's degree (e.g., Adrien Bowens, MS, 12/01/2018 you have completed or the highest Faustina, MEd, CLEANING MACHINE OPERATOR, IGORGIO) degree you have received? Sex Assigned at Date Recorded Female 03/07/2018 9:31 AM CDT documented as of this encounter Plan of Treatment Upcoming Encounters Date Type Specialty Care Team Description 03/25/2022 Office Visit Family Medicine Leslie Gonzalez M.D. [address] [place] [phone] (Wo rk) documented as of this encounter Procedures Procedure Name Priority Date/Time Associated Diagnosis Comme nts SARS CORONAVIRUS-2 STAT 11/09/2021 8:42 AM Encounter For Re sults for this RNA, V CDT Preprocedural procedure are in Laboratory Examination the r esults (COVID-19) section. documented in this encounter Results SARS Coronavirus-2 RNA, V Asymptomatic (11/09/2021 8:42 AM CDT) [facility] Method Time Signature SARS-CoV-2 Swab, 11/09/2021 MKTO Specimen Nasopharynx 11:34 PM Source CDT SARS CoV-2 Undetected Undetected 11/09/2021 MKTO RNA, TMA 11:34 PM CDT Comment: SARS-CoV-2 RNA absent. This result does not rule out COVID-19 in the patient, as the sensitivity of the test depends o n the timing of the specimen collection and the quality of the specim en. Result should be correlated with patient's history and clinical presentat ion. ----ADDITIONAL INFORMATION---- This molecular amplification test was pe rformed using the Aptima SARS-CoV-2 assay ([employer] on the SR Labss tem under emergency use authorization (EUA) by the U.S. Food and Drug Administ ration. Fact sheets for this EUA assay can be fo und at the following links: For Healthcare Providers: https://www.Thrillist.com a.gov/media/073976/download For Patients: https://www.fda.gov/media/ 316826/download Specimen Anatomical Collection Method Collection Time Receive d Time (Source) Location / / Volume Laterality Varies 11/09/2021 8:42 AM 4:09 (Nasopharynx) CDT PM CDT Merrill Bee P.A.-C. LAB MICROBIOLOGY - GENERAL O ORACIOERABLES Performing Organization Address City/State/ZIP [facility] Phon e Number [facility]- [address] [place] [address] [place] [address] System [address] documented in this encounter Visit Diagnoses Diagnosis Encounter For Preprocedural Laboratory E xamination (COVID-19) documented in this encounter Additional Health Concerns Infection Onset Date Last Indicated Resolved Time COVID19 Pending 11/06/2021 11/09/2021 11/09/2021 11:35 PM CDT documented as of this encounter Care Teams Breaker Boss Relationship Specialty Start Date End Date Merrill Bee P.A.-C. PCP - General 11/18/16 [address] [place] [phone] documented as of this encounter
--- OUTSIDE RECORDS SUMMARY | 2022-03-22 15:44 | XMS_ITS | Encounter Summary ---
:1950 Author Organization [facility] Address [address] [place] [address] Care Team Providers Name Role Phone Merrill Bee P.A.-C. Primary Care Provider [phone] Reason for Referral Outpatient (Routine) - Closed Specialty Diagnoses / Procedures Referred By Contact Refer red To Contact Family Medicine Merrill Bee P. A.-C. [facility] [address] [address] Referral ID Status Reason Start Date Expiration Date Visits Requ ested Visits Authorized [id number] Closed 10/28/2021 10/28/2022 1 1 Reason for Visit Reason Comments Follow-up After tests Outpatient (Routine) - Closed Specialty Diagnoses / Procedures Referred By Contact Refer red To Contact Family Medicine Merrill Bee P. A.-C. [facility] [address] [address] Referral ID Status Reason Start Date Expiration Date Visits Requ ested Visits Authorized [id number] Closed 10/26/2021 10/26/2022 1 1 Encounter Details Date Type Department Care Team Description 10/28/2021 Office Visit Department of Merrill Self Hy pertension Essential Primary (Primary Dx); MedicinePreet P.A.-C. Acrocyanosis (HCC); Clinic, in [address] [facility] [address] ERIKA MATIAS [phone] (Work) [phone] Social History Tobacco Use Types Packs/Day Years Used Date Smoking Tobacco: Former Cigarettes Quit : 1993 Smokeless Tobacco: Never Alcohol Use Standard Drinks/Week Comments Yes 16 (1 standard drink = 0.6 oz pure 2-3 d rinks every night (mixed drink alcohol) or wine) Alcohol Habits Answer Date Recorded How often do you have a drink containing 4 or more times a w [place] 10/05/2021 alcohol? How many drinks containing alcohol [...] or relatives? How often do you attend advent or 1 to 4 times per year 07/2021 restorationist services? Do you belong to any clubs or Yes 10/05/2021 organizations such as advent groups, unions, fraternal or athletic groups, or [...] place to sleep or slept in a residential (including now)? Education Answer Date Recorded What is the highest level of school Master's degree (e.g., M Gogo, MS, 12/01/2018 you have completed or the highest Faustina, MEd, FLOOR CLERK, GIORGIO) degree you have received? Sex Assigned at Date Recorded Female 03/07/2018 9:31 AM CDT documented as of this encounter Last Filed Vital Signs Vital Sign Reading Time Taken Comments Blood Pressure 154/84 10/28/2021 11:40 AM CDT Pulse 97 10/28/2021 11:40 AM CDT Temperature 35.9 ??C (96.6 ??F) 10/28/2021 11:33 AM CDT Respiratory Rate 16 10/28/2021 11:33 AM CDT Oxygen Saturation - - Inhaled Oxygen Concentration - - Weight 94.3 kg (207 lb 12.5 oz) 10/28/2021 11:33 AM CDT Height - - Body Mass Index 33.59 10/22/2021 12:41 PM CDT documented in this encounter Progress Notes Merrill Bee P.A.-C. - 10/28/2021 12:00 PM CDT SUBJECTIVE CHIEF COMPLAINT / REASON FOR VISIT Steph Simmons is a 71 y.o. female who presents for evaluation of Follow-up (After tests). HISTORY OF PRESENT ILLNESS Steph presents today for follow-up of her hyperkalemia. She has acrocyanosis and I set her up to be seen in vascular Medicine. During that visit she was started on amlodipine that was discussed that shecould switch her lisinopril to losartan because of her history of hyperkalemia. I did check a potassium level following that it was critically elevated at 6.2. I gave her a dose of Lasix and had her hold her lisinopril and she comes in to see me today in follow-up. Her blood pressure is a little elevated but she continues on five of amlodipine only. We recheck the potassium yesterday it was 5.8. OBJECTIVE Vitals: 10/28/21 1133 10/28/21 1140 BP: 153/84 154/84 BP Location: Right arm Right arm Patient Position: Sitting Sitting Cuff Size: Regular Regular Pulse: 97 97 Resp: 16 Temp: (!) 35.9 ??C TempSrc: Temporal Weight: 94.3 kg Body mass index is 33.59 kg/m??. PHYSICAL EXAMINATION In general she appears in no acute distress. Her blood pressure continues to be elevated today since she stopped her lisinopril. ASSESSMENT / PLAN #1 Hypertension Essential Primary Her blood pressure is elevated we had a good discussion about this am going to have her hold her lisinopril for now I am going to double the dose of her amlodipine. She has gotten some good improvementof her other symptoms with the amlodipine so will increase this we did discuss the risk of lower extremity edema but she will monitor this as well. I am going to have her check some blood pressure readings over the next couple weeks and I will see her back in a couple weeks with an electrolyte panel she has questions or problems in the meantime she will let us know #2 Acrocyanosis (HCC) Overall she is doing well on the amlodipine will continue her on this for now but double the dose to10 mg daily #3 Hyperkalemia I am going to check another potassium today she took a dose of Lasix yesterday late in the day so hopefully she will have continued improvement of her potassium. This should also continue to improve with the discontinuation of lisinopril. If she has any further questions or problems she will let us know. Total time spent 30 minute Merrill Bee P.A.-C. documented in this encounter Plan of Treatment Upcoming Encounters Date Type Specialty Care Team Description 03/25/2022 Office Visit Family Medicine Leslie Gonzalez M.D. [address] [place] [phone] (Wo rk) Scheduled Referrals Name Type Priority Associated Order Schedule Diagnoses Family Medicine Outpatient Referral Routine 1 [facility] office visit starting 2021 (clinic) until 3 documented as of this encounter Results (ABNORMAL) Basic Metabolic Panel (11/11/2021 8:39 AM CDT) P athologist Signature Potassium, P 5.5 (H) 3.6 - 5.2 11/11/2021 [place] mmol/L 2:04 PM CDT Sodium, P 141 135 - 145 11/11/2021 [place] mmol/L 2:04 PM CDT Chloride, P 101 98 - 107 11/11/2021 [place] mmol/L 2:04 PM CDT Bicarbonate, P 24 22 - 29 11/11/2021 [place] mmol/L 2:04 PM CDT Anion Gap, P 16 (H) 7 - 15 11/11/2021 [place] 2:04 PM CDT BUN (Blood Urea 15 6 - 21 11/11/2021 [place] Nitrogen), P mg/dL 2:04 PM CDT Creatinine 0.93 0.59 - 11/11/2021 [place] 1.04 mg/dL 2:04 PM CDT eGFR-Black/Afri 71 >=60 11/11/2021 [place] can Cymro mL/min/BSA 2:04 PM CDT Comment: ----ADDITIONAL INFORMATION---- Estimated GFR calculated using the 2009 CKD_EPI creatinine equation. eGFR Non-Black/ 61 >=60 mL/min/BSA 2:04 PM CDT [facility] Comment: ----ADDITIONAL INFORMATION---- Estimated GFR calculated using the 2009 CKD_EPI creatinine equation. Calcium, Total, P 10.0 8.8 - 10.2 mg/dL 11/11/2021 2:04 PM CDT [place] Glucose, P 151 (H) 70 - 140 mg/dL 11/11/2021 2:04 PM CDT O ROGERIO Specimen Anatomical Collection Method Collection Time Receive d Time (Source) Location / / Volume Laterality Blood (Blood, 11/11/2021 8:39 AM 11/12/19 Venous) CDT 10:58 AM CDT Merrill Bee P.A.-C. LAB BLOOD ADD-ON Performing Organization Address City/State/ZIP Code Phon e Number [facility] [address] [place] [address] [facility] [place] [address] System in [place] [address] Potassium (10/28/2021 2:33 PM CDT) P athologist Signature Potassium, P 5.1 3.6 - 5.2 10/28/2021 [place] mmol/L 4:35 PM CDT Specimen Anatomical Collection Method Collection Time Receive d Time (Source) Location / / Volume Laterality Blood (Blood, 10/28/2021 2:33 PM 10/29/19 22 3:31 Venous) CDT PM CDT Merrill Bee P.A.-C. LAB BLOOD ADD-ON Performing Organization Address City/State/ZIP Code Phon e Number [facility]- [address] [place] [address] [facility] [place] [address] System in [place] [address] documented in this encounter Visit Diagnoses Diagnosis Hypertension Essential Primary - Primary Acrocyanosis (HCC) Hyperkalemia documented in this encounter Care Teams Community Theater Actor Relationship Specialty Start Date End Date Merrill Bee P.A.-C. PCP - General 11/18/16 [address] [place] [phone] documented as of this encounter
--- OUTSIDE RECORDS SUMMARY | 2022-03-22 15:44 | XMS_ITS | Encounter Summary ---
:1950 Author Organization [facility] Address [address] [place] [address] Care Team Providers Name Role Phone Merrill Bee P.A.-C. Primary Care Provider [phone] Encounter Details Date Type Department Care Team Description 10/26/2021 Orders Only Department of Family Merrill Bee Hy perkalemia (Primary Medicine, [place] Estuardo Dx) Clinic, in [address] [address] [place], [place] [phone] (Work) [phone] Social History Tobacco Use Types Packs/Day Years Used Date Smoking Tobacco: Former Cigarettes Quit : 1993 Smokeless Tobacco: Never Alcohol Use Standard Drinks/Week Comments Yes 16 (1 standard drink = 0.6 oz pure 2-3 d rinks every night (mixed drink alcohol) or wine) Alcohol Habits Answer Date Recorded How often do you have a drink containing 4 or more times a w kaw 10/05/2021 alcohol? How many drinks containing alcohol [...] or relatives? How often do you attend catholic or 1 to 4 times per year 07/2021 nondenominational services? Do you belong to any clubs or Yes 10/05/2021 organizations such as catholic groups, unions, fraternal or athletic groups, or [...] place to sleep or slept in a long-term (including now)? Education Answer Date Recorded What is the highest level of school Master's degree (e.g., M Gogo, MS, 12/01/2018 you have completed or the highest Faustina, MEd, STERILE PROCESS COORDINATOR, GIORGIO) degree you have received? Sex Assigned at Date Recorded Female 03/07/2018 9:31 AM CDT documented as of this encounter Plan of Treatment Upcoming Encounters Date Type Specialty Care Team Description 03/25/2022 Office Visit Family Medicine Leslie Gonzalez M.D. [address] [place] [phone] (Wo rk) documented as of this encounter Visit Diagnoses Diagnosis Hyperkalemia - Primary documented in this encounter Care Teams Growth Media Mixer Mushroom Relationship Specialty Start Date End Date Merrill Bee P.A.-C. PCP - General 11/18/16 [address] [place] [phone] documented as of this encounter
--- OUTSIDE RECORDS SUMMARY | 2022-03-22 15:44 | XMS_ITS | Encounter Summary ---
:1950 Author Organization [facility] Address [address] [place] [address] Care Team Providers Name Role Phone Merrill Bee P.A.-C. Primary Care Provider [phone] Encounter Details Date Type Department Care Team Description 11/11/2021 Hospital Encounter Department of Brock Bee Essential Primary; Laboratory Medicine Waldo Momin Acrocyanosis (HCC); in [place], [address] [place] [address] [place], [place] [address] [facility] [address] [place], [place] [phone] (Work) [phone] Social History Tobacco Use Types Packs/Day Years Used Date Smoking Tobacco: Former Cigarettes Quit : 1993 Smokeless Tobacco: Never Alcohol Use Standard Drinks/Week Comments Yes 16 (1 standard drink = 0.6 oz pure 2-3 d rinks every night (mixed drink alcohol) or wine) Alcohol Habits Answer Date Recorded How often do you have a drink containing 4 or more times a w [place] 10/05/2021 alcohol? How many drinks containing alcohol [...] or relatives? How often do you attend jehovah's witness or 1 to 4 times per year 07/2021 orthodoxy services? Do you belong to any clubs or Yes 10/05/2021 organizations such as jehovah's witness groups, unions, fraternal or athletic groups, or [...] place to sleep or slept in a half-way (including now)? Education Answer Date Recorded What is the highest level of school Master's degree (e.g., Adrien Bowens, MS, 12/01/2018 you have completed or the highest Faustina, MEd, AGRICULTURE INSPECTOR, GIORGIO) degree you have received? Sex Assigned [...] E/LUTEIN/MIN/OMEGA-3 mouth daily. (OCUVITE ORAL) amLODIPine (NORVASC) Take 1 tablet (10 mg 90 tablet 3 10/2811/12/2021 10 mg tablet total) by mouth daily. aspirin [...] 10/0511/12/2021 mg tablet total) by mouth daily. meclizine (ANTIVERT) Take 1 tablet (25 mg 90 tablet 3 01/1212/30/2021 25 mg tablet total) by mouth 3 (three) times a day as needed for dizziness. documented as of this encounter Plan of Treatment Upcoming Encounters Date Type Specialty Care Team Description 03/25/2022 Office Visit Family Medicine Leslie Gonzalez M.D. [address] [place] [phone] (Wo rk) documented as of this encounter Procedures Procedure Name Priority Date/Time Associated Diagnosis Comme nts BASIC METABOLIC Routine 11/11/2021 8:39 AM Hypertension Result s for this PANEL, S/P CDT Essential Primar y procedure are in Acrocyanosis (HC C) the results Hyperkalemia section. documented in this encounter Results (ABNORMAL) [...] CDT eGFR-Black/Afri 71 >=60 11/11/2021 [facility] can Nigerien mL/min/BSA 2:04 PM CDT Comment: ----ADDITIONAL INFORMATION---- [...] Organization Address City/State/ZIP Code Phon e Number [facility] [address] [place] [address] [place] [address] System in [place] [address] [facility] documented in this encounter Visit Diagnoses Diagnosis Hypertension Essential Primary Acrocyanosis (HCC) Hyperkalemia documented in this encounter Care Teams Unit Technician Relationship Specialty Start Date End Date Merrill Bee P.A.-C. PCP - General 11/18/[address] [place] [phone] documented as of this encounter
--- OUTSIDE RECORDS SUMMARY | 2022-03-22 15:44 | XMS_ITS | Encounter Summary ---
:1950 Author Organization [facility] Address [address] [place] [address] Care Team Providers Name Role Phone Merrill Bee P.A.-C. Primary Care Provider Encounter Details Date Type Department Care Team Description 10/26/2021 Clinical Communication Department of [facility] Merrill Bee, [facility], Preet Marte [facility], in [address] [address] [place], [place] [phone] (Work) [phone] Social History Tobacco Use Types Packs/Day Years Used Date Smoking Tobacco: Former Cigarettes Quit : 1993 Smokeless Tobacco: Never Alcohol Use Standard Drinks/Week Comments Yes 16 (1 standard drink = 0.6 oz pure 2-3 d rinks every night (mixed drink alcohol) or wine) Alcohol Habits Answer Date Recorded How often do you have a drink containing 4 or more times a w [place] 10/05/2021 alcohol? How many drinks containing alcohol [...] or relatives? How often do you attend adventist or 1 to 4 times per year 07/2021 buddhism services? Do you belong to any clubs or Yes 10/05/2021 organizations such as adventist groups, unions, fraternal or athletic groups, or school groups? How often do you attend meetings of the More than 4 times pe year 10/05/2021 clubs or organizations you belong [...] place to sleep or slept in a jail (including now)? Education Answer Date Recorded What is the highest level of school Master's degree (e.g., M Gogo, MS, 12/01/2018 you have completed or the highest Faustina, MEd, GREIGE GOODS INSPECTOR, GIORGIO) degree you have received? Sex Assigned at Date Recorded Female 03/07/2018 9:31 AM CDT documented as of this encounter Miscellaneous Notes Telephone Encounter - Franco Swift V., C.M.A. - 10/26/2021 4:20 PM CDT SUBJECTIVE CHIEF COMPLAINT / REASON FOR CALL No chief complaint on file. Information Discussed Contacted the pharmacy to notify them of the reasoning for the 1 capsule, prescribed once. PLAN Disposition/Recommendation: recommended continue engagement in self-management activities Information/Education: patient/caller able to teach back Caller agreeable to plan of care: yes The following references were used: none Telephone Encounter - Nicole Mota Adrien - 10/26/2021 3:02 PM CDT Reason for Communication: [facility] pharmacy in called. They are questioning the patient's furosemide rx. They need to know if it should be for one pill as stated or for multiple pills. Please verify and fax new rx over. Current Can Nursing/Provider leave a detailed message?: no Did the patient refuse triage through Nurse line? (for symptom based concerns): na Action Needed: -- Name of Medication (if relevant): furosemide (LASIX) 20 mg tablet Please send all scheduling replies to scheduling pool. documented in this encounter Plan of Treatment Upcoming Encounters Date Type Specialty Care Team Description 03/25/2022 Office Visit Family Medicine Leslie Gonzalez M.D. [address] [place] [address] [phone] (Wo rk) documented as of this encounter Visit Diagnoses Not on filedocumented in this encounter Care Teams Train Driver Relationship Specialty Start Date End Date Merrill Bee P.A.-C. PCP - General 11/18/16 [address] [place] [address] documented as of this encounter
--- OUTSIDE RECORDS SUMMARY | 2022-03-22 15:44 | XMS_ITS | Encounter Summary ---
:1950 Author Organization [facility] Address [address] [place] [address] Care Team Providers Name Role Phone Merrill Bee P.A.-C. Primary Care Provider [phone] Encounter Details Date Type Department Care Team Description 12/14/2021 Hospital Encounter Department of Brock Bee Essential Primary; Laboratory Medicine Waldo Momin Hyperkalemia in [address] [address] [place], [place] [phone] (Work) [phone] Social History Tobacco Use Types Packs/Day Years Used Date Smoking Tobacco: Former Cigarettes Quit : 1993 Smokeless Tobacco: Never Alcohol Use Standard Drinks/Week Comments Yes 16 (1 standard drink = 0.6 oz pure 2-3 d rinks every night (mixed drink alcohol) or wine) Alcohol Habits Answer Date Recorded How often do you have a drink containing 4 or more times a w [place] 10/05/2021 alcohol? How many drinks containing alcohol [...] or relatives? How often do you attend hinduism or 1 to 4 times per year 07/2021 adventist services? Do you belong to any clubs or Yes 10/05/2021 organizations such as hinduism groups, unions, fraternal or athletic groups, or [...] have completed or the highest Faustina, MEd, RIGHT OF WAY AGENT, GIORGIO) degree you have received? Sex Assigned [...] 1 tablet (5 mg 90 tablet 3 02/202201/20/2022 mg tablet total) by mouth daily. aspirin 325 mg tablet Take 325 mg by mouth 0 12/17/2021 daily. atorvastatin (LIPITOR) TAKE 1 TABLET BY 90 tablet 3 02/16/ 021 01/20/2022 40 mg tablet MOUTH AT BEDTIME DULoxetine (CYMBALTA) Take 2 capsules (120 180 capsule 3 02/202101/20/[address] capsule mg total) by mouth daily. losartan-hydroCHLOROth Take 1 tablet by 90 tablet 3 11/12/ 022 01/20/2022 iazide (HYZAAR) mouth daily. 50-12.5 mg per tablet meclizine (ANTIVERT) Take 1 tablet (25 mg 90 tablet 3 01/1212/30/2021 25 mg tablet total) by mouth 3 (three) times a day as needed for dizziness. documented as of this encounter Plan of Treatment Upcoming Encounters Date Type Specialty Care Team Description 03/25/2022 Office Visit Family Medicine Leslie Gonzalez M.D. [address] [place] [phone] (Wo rk) documented as of this encounter Procedures Procedure Name Priority Date/Time Associated Diagnosis Comme nts BASIC METABOLIC Routine 12/14/2021 10:32 Hypertension Results for this PANEL, S/P AM CDT Essential Primar y procedure are in Hyperkalemia the results section. documented in this encounter Results Basic Metabolic Panel (12/14/2021 [...] CDT eGFR-Black/Afric 87 >=60 12/14/2021 [place] an [place] mL/min/BSA 1:50 PM CDT Comment: ----ADDITIONAL INFORMATION---- [...] Organization Address City/State/ZIP Code Phon e Number [facility]- [address] [place] [address] [place] [address] System in [place] [address] documented in this encounter Visit Diagnoses Diagnosis Hypertension Essential Primary Hyperkalemia documented in this encounter Care Teams Shoeblack Relationship Specialty Start Date End Date Merrill Bee P.A.-C. PCP - General 11/18/[address] [place] [phone] documented as of this encounter
--- OUTSIDE RECORDS SUMMARY | 2022-03-22 15:44 | XMS_ITS | Encounter Summary ---
:1950 Author Organization [facility] Address [address] [place] [address] Care Team Providers Name Role Phone Merrill Bee P.A.-C. Primary Care Provider [phone] Reason for Visit Reason Comments Follow-up Regarding bp meds and labs Outpatient (Routine) - Closed Specialty Diagnoses / Procedures Referred By Contact Refer red To Contact Family Medicine Merrill Bee P. A.-C. [address] [phone] Referral ID Status Reason Start Date Expiration Date Visits Requ ested Visits Authorized [id number] Closed 11/12/2021 11/12/2022 1 1 Encounter Details Date Type Department Care Team Description 12/17/2021 Office Visit Department of Family Merrill Bee Ga stritis (Primary Dx); Medicine, Custerabdullahi Marte Hypertension [facility], in [address] [address] [place], [place] [phone] (Work) [phone] Social History Tobacco Use Types Packs/Day Years Used Date Smoking Tobacco: Former Cigarettes Quit : 1993 Smokeless Tobacco: Never Alcohol Use Standard Drinks/Week Comments Yes 16 (1 standard drink = 0.6 oz pure 2-3 d rinks every night (mixed drink alcohol) or wine) Alcohol Habits Answer Date Recorded How often do you have a drink containing 4 or more times a w the [place] 10/05/2021 alcohol? How many drinks containing alcohol [...] or relatives? How often do you attend judaism or 1 to 4 times per year 07/2021 adventism services? Do you belong to any clubs or Yes 10/05/2021 organizations such as judaism groups, unions, fraternal or athletic groups, or [...] place to sleep or slept in a intermediate (including now)? Education Answer Date Recorded What is the highest level of school Master's degree (e.g., M A, MS, 12/01/2018 you have completed or the highest Faustina, MEd, MINE MANAGER, GIORGIO) degree you have received? Sex Assigned at Date Recorded Female 03/07/2018 9:31 AM CDT documented as of this encounter Last Filed Vital Signs Vital Sign Reading Time Taken Comments Blood Pressure 133/80 12/17/2021 10:44 AM CDT Pulse 79 12/17/2021 10:44 AM CDT Temperature 36.2 ??C (97.2 ??F) 12/17/2021 10:44 AM CDT Respiratory Rate 16 12/17/2021 10:44 AM CDT Oxygen Saturation - - Inhaled Oxygen Concentration - - Weight 91.4 kg (201 lb 8 oz) 12/17/2021 10:44 AM CDT Height - - Body Mass Index 32.58 10/22/2021 12:41 PM CDT documented in this encounter Progress Notes Merrill Bee P.A.-C. - 12/17/2021 11:00 AM CDT SUBJECTIVE CHIEF COMPLAINT / REASON FOR VISIT Steph Simmons is a 71 y.o. female who presents for evaluation of Follow-up (Regarding bp meds and labs). HISTORY OF PRESENT ILLNESS Steph presents today for follow-up of her blood pressure. She had electrolytes drawn prior to this visit and her blood pressure is well controlled and her electrolytes are doing great. She had her EGD which did confirm a gastritis. She does continue on occasional ibuprofen but takes an aspirin daily she also continues with the Nexium. OBJECTIVE Vitals: 12/17/21 1044 BP: 133/80 BP Location: Right arm Patient Position: Sitting Cuff Size: Regular Pulse: 79 Resp: 16 Temp: 36.2 ??C TempSrc: Temporal Weight: 91.4 kg Body mass index is 32.58 kg/m??. PHYSICAL EXAMINATION No further exam was done today ASSESSMENT / PLAN #1 Gastritis At this time I am going to have her discontinue her aspirin because of increased risk with this. Shemay use ibuprofen as needed with food but try to limit this as well. She will continue on the Nexium #2 Hypertension Essential Primary Continue on the losartan hydrochlorothiazide and amlodipine. Overall she is doing well she will be coming in for a preop next month for her knee surgery as well as her yearly exam. If she has questionsor problems in the meantime she will let us know Merrill Bee P.A.-C. documented in this encounter Plan of Treatment Upcoming Encounters Date Type Specialty Care Team Description 03/25/2022 Office Visit Family Medicine Leslie Gonzalez M.D. [address] [place] [phone] (Wo rk) documented as of this encounter Visit Diagnoses Diagnosis Gastritis - Primary Hypertension Essential Primary documented in this encounter Care Teams Product Marketing Executive Relationship Specialty Start Date End Date Merrill Bee P.A.-C. PCP - General 11/18/[address] [place], [place] [address] [place] [phone] documented as of this encounter
--- OUTSIDE RECORDS SUMMARY | 2022-03-22 15:44 | XMS_ITS | Encounter Summary ---
:1950 Author Organization [facility] Address [address] [place] [address] Care Team Providers Name Role Phone Merrill Bee P.A.-C. Primary Care Provider [phone] Encounter Details Date Type Department Care Team Description 10/27/2021 Hospital Encounter Department of Merrill Bee Hyp erkalemia Laboratory Medicine in [place], [place] [address] [facility] [address] [place] [phone] Social History Tobacco Use Types Packs/Day Years Used Date Smoking Tobacco: Former Cigarettes Quit : 1993 Smokeless Tobacco: Never Alcohol Use Standard Drinks/Week Comments Yes 16 (1 standard drink = 0.6 oz pure 2-3 d rinks every night (mixed drink alcohol) or wine) Alcohol Habits Answer Date Recorded How often do you have a drink containing 4 or more times a w [place] 10/05/2021 alcohol? How many drinks containing alcohol [...] meetings of the More than 4 times [facility] year 10/05/2021 clubs or organizations you belong [...] completed or the highest Faustina, MEd, MEDICAL CODING TECHNICIAN, GIORGIO) degree you have received? Sex [...] Visit Family Medicine Leslie Gonzalez M.D. [address] [place] [phone] (Wo nicho) documented as of this encounter Procedures Procedure Name Priority Date/Time Associated Diagnosis Comme nts POTASSIUM, S/P Routine 10/27/2021 8:25 AM Hyperkalemia Results for this CDT procedure are i n the results section . documented in this encounter Results (ABNORMAL) Potassium (10/27/2021 8:25 AM CDT) P athologist Signature Potassium, P 5.8 (H) 3.6 - 5.2 10/27/2021 [place] mmol/L 11:17 AM CDT Specimen Anatomical Collection Method Collection Time Receive d Time (Source) Location / / Volume Laterality Blood (Blood, 10/27/2021 8:25 AM 10/28/19 22 Venous) CDT 10:55 AM CDT Merrill Bee P.A.-C. LAB BLOOD ADD-ON Performing Organization Address City/State/ZIP Code Phon e Number [facility]- [address] [place] [address] [place] [address] System in [place] [address] [facility] documented in this encounter Visit Diagnoses Diagnosis Hyperkalemia documented in this encounter Care Teams Single End Sewer Relationship Specialty Start Date End Date Merrill Bee P.A.-C. PCP - General 11/18/[address] [place] [phone] documented as of this encounter
--- OUTSIDE RECORDS SUMMARY | 2022-03-22 15:44 | XMS_ITS | Encounter Summary ---
:1950 Author Organization [facility] Address [address] [place] [address] Care Team Providers Name Role Phone Merrill Bee P.A.-C. Primary Care Provider [phone] Encounter Details Date Type Department Care Team Description 10/22/2021 Orders Only Department of Family Merrill Bee Hy perkalemia (Primary Medicine, Shiro Estuardo Dx) Clinic, in [address] [address] [place], [place] [phone] (Work) [phone] Social History Tobacco Use Types Packs/Day Years Used Date Smoking Tobacco: Former Cigarettes Quit : 1993 Smokeless Tobacco: Never Alcohol Use Standard Drinks/Week Comments Yes 16 (1 standard drink = 0.6 oz pure 2-3 d rinks every night (mixed drink alcohol) or wine) Alcohol Habits Answer Date Recorded How often do you have a drink containing 4 or more times a w [place] 10/05/2021 alcohol? How many drinks containing alcohol [...] or relatives? How often do you attend nondenominational or 1 to 4 times per year 07/2021 voodoo services? Do you belong to any clubs or Yes 10/05/2021 organizations such as nondenominational groups, unions, fraternal or athletic groups, or [...] place to sleep or slept in a [facility] (including now)? Education Answer Date Recorded What is the highest level of school Master's degree (e.g., M Gogo, MS, 12/01/2018 you have completed or the highest Faustina, MEd, ARCHITECTURAL DRAFTSPERSON, GIORGIO) degree you have received? Sex Assigned at Date Recorded Female 03/07/2018 9:31 AM CDT documented as of this encounter Plan of Treatment Upcoming Encounters Date Type Specialty Care Team Description 03/25/2022 Office Visit Family Medicine Leslie Gonzalez M.D. [address] [place] [phone] (Wo rk) documented as of this encounter Results (ABNORMAL) [...] Organization Address City/State/ZIP Code Phon e Number [facility] [place] [facility] [place] [address] [place] [address] [place] [address] System in [place] [address] [place] [address] documented in this encounter Visit Diagnoses Diagnosis Hyperkalemia - Primary documented in this encounter Care Teams Service Coordinator Elderly Facility Relationship Specialty Start Date End Date Merrill Bee P.A.-C. PCP - General 11/18/16 [address] [place] [phone] documented as of this encounter
--- OUTSIDE RECORDS SUMMARY | 2022-03-22 15:44 | XMS_ITS | Encounter Summary ---
:1950 Author Organization [facility] Address [address] [place] [address] Care Team Providers Name Role Phone Merrill Bee P.A.-C. Primary Care Provider [phone] Encounter Details Date Type Department Care Team Description 01/18/2022 Hospital Encounter Department of Brett Beeo lesterolemia; Laboratory Medicine Waldo Momin Hypertension Essential Primary in [address] [facility] [address] [place], [place] [phone] (Work) [phone] Social History Tobacco Use Types Packs/Day Years Used Date Smoking Tobacco: Former Cigarettes Quit : 1993 Smokeless Tobacco: Never Alcohol Use Standard Drinks/Week Comments Yes 16 (1 standard drink = 0.6 oz pure 2-3 d rinks every night (mixed drink alcohol) or wine) Alcohol Habits Answer Date Recorded How often do you have a drink containing 4 or more times a w [place] 10/05/2021 alcohol? How many drinks containing alcohol [...] have completed or the highest Faustina, MEd, GRANT MANAGER, GIORGIO) degree you have received? Sex [...] 02/202201/20/2022 mg tablet total) by mouth daily. atorvastatin (LIPITOR) TAKE 1 TABLET BY 90 tablet 3 021 01/20/2022 40 mg tablet MOUTH AT BEDTIME DULoxetine (CYMBALTA) Take 2 capsules (120 180 capsule 3 02/202101/20/[address] capsule mg total) by mouth daily. losartan-hydroCHLOROth Take 1 tablet by 90 tablet 3 022 01/20/2022 iazide (HYZAAR) mouth daily. 50-12.5 mg per tablet documented as of this encounter Plan of Treatment Upcoming Encounters Date Type Specialty Care Team Description 03/25/2022 Office Visit Family Medicine Leslie Gonzalez M.D. [address] [place] [phone] (Wo rk) documented as of this encounter Procedures Procedure Name Priority Date/Time Associated Comments Diagnosis LIPID PANEL, S Routine 01/18/2022 8:10 AM Hypercholesterolemi Results for this CDT a procedure are in Hypertension the results Essential Primary section. COMPREHENSIVE Routine 01/18/2022 8:10 AM Hypercholesterolemi R esults for this METABOLIC PANEL, S/P CDT a procedure are in Hypertension the results Essential Primary section. documented in this encounter Results (ABNORMAL) Lipid Panel (01/18/2022 8:10 AM CDT) P athologist Signature Triglycerides 183 (H) mg/dL 01/18/2022 [...] T [place] Cholesterol, Non-HDL, Calculated 112 mg/dL 11:56 AM CDT [place] Comment: ----REFERENCE VALUE---- [...] Organization Address City/State/ZIP Code Phon e Number [facility]- [address] [place] [address] [place] [address] System in [place] [address] [facility] Comprehensive Metabolic Panel (01/18/2022 8:10 AM [...] CDT eGFR-Black/Afric 78 >=60 01/18/2022 [place] an [place] mL/min/BSA 11:56 AM CDT Comment: ----ADDITIONAL INFORMATION---- [...] Organization Address City/State/ZIP Code Phon e Number [facility]- [address] [place] [address] [place] [address] System in [place] [address] documented in this encounter Visit Diagnoses Diagnosis Hypercholesterolemia Hypertension Essential Primary documented in this encounter Care Teams Chair And Couch Maker Relationship Specialty Start Date End Date Merrill Bee P.A.-C. PCP - General 11/18/[address] [place] [phone] documented as of this encounter
--- OUTSIDE RECORDS SUMMARY | 2022-03-22 15:44 | XMS_ITS | Encounter Summary ---
:1950 Author Organization [facility] Address [address] [place] [address] Care Team Providers Name Role Phone Merrill Bee P.A.-C. Primary Care Provider [phone] Reason for Visit Outpatient (Routine) - Closed Specialty Diagnoses / Procedures Referred By Contact Refer red To Contact Vascular Medicine Diagnoses Atherosclerosis Arteriosclerosis Obliterans Lower Extremity With Claudication (HCC) [facility] [address] [place] [address] Referral ID Status Reason Start Date Expiration Date Visits Requ ested Visits Authorized [id number] Closed 10/15/2021 10/15/2022 1 1 Encounter Details Date Type Department Care Team Description 10/22/2021 Comprehensive Visit Department of Demar Barnes Vascular Medicine Phil Morrison Arteriosccoral eroschristi in [place], B.Ch. O[place]iter[place] [address] [facility] Extremity With [address] [place], [place] Claudication (HCC) [place] [phone] Social History Tobacco Use Types Packs/Day Years Used Date Smoking Tobacco: Former Cigarettes Quit : 1993 Smokeless Tobacco: Never Alcohol Use Standard Drinks/Week Comments Yes 16 (1 standard drink = 0.6 oz pure 2-3 d rinks every night (mixed drink alcohol) or wine) Alcohol Habits Answer Date Recorded How often do you have a drink containing 4 or more times a w [place] 10/05/2021 alcohol? How many drinks containing alcohol [...] 1 to 4 times per year 07/2021 congregation services? Do you belong to any clubs [...] have completed or the highest Faustina, MEd, DOUBLE HEAD MACHINE OPERATOR, GIORGIO) degree you have received? Sex Assigned at Date Recorded Female 03/07/2018 9:31 AM CDT documented as of this encounter Last Filed Vital Signs Vital Sign Reading Time Taken Comments Blood Pressure 125/76 10/22/2021 12:43 PM CDT Pulse 105 10/22/2021 12:43 PM CDT Temperature - - Respiratory Rate - - Oxygen Saturation - - Inhaled Oxygen Concentration - - Weight 93 kg (205 lb 0.4 oz) 10/22/2021 12:41 PM CDT Height 167.5 cm (5' 5.95) 10/22/2021 12:41 PM CDT Body Mass Index 33.15 10/22/2021 12:41 PM CDT documented in this encounter Consult Notes Phil Barnes M.B., B.Ch. - 10/22/2021 1:00 PM CDT Images from the original note were not included. REFERRAL SOURCE Merrill Bee P.A.-C. [address] [place] [phone] SUBJECTIVE CHIEF COMPLAINT / REASON FOR VISIT Discolored toes HISTORY OF PRESENT ILLNESS Ms. Simmons is a delightful 71 y.o. female that I am seeing today for vascular medicine consultation with regards to concern of discolored toes. She also notes some pain in the feet when she walks on this improves when he stops walking. Her walking however is limited by shortness of breath She underwent a noninvasive lower extremity arterial study this morning showing normal resting BHANU and only mild drop after exercise 0.81 on the right and 0.88 on the left. She walked at a reduced speed of 1 mi per hour for 76 yards and stop due to shortness of breath Quit smoking 1993 Essential hypertension on lisinopril 20 mg daily Dyslipidemia treated with atorvastatin 40 mg daily Lumbosacral Spinal stenosis- She is followed by pain medicine and underwent epidural steroid injection 1 year ago with marked improvement in subsequent repeat June 11, 2021. Worse with stairs, standing improved with sitting andwith exercise Osteoarthritis of the knees with previous cortisone injection History of stroke The following portions of the patient's history were reviewed and updated as appropriate: allergies,current medications, family history, medical history, social history, surgical history, psychiatric history, substance abuse history, problem list, labs, diagnostics tests.. I reviewed the pertinent clinical notes in the electronic health record. REVIEW OF SYSTEMS 14 systems reviewed. Pertinent positives and pertinent negatives are documented in the history of present illness. OBJECTIVE VITALS BP 125/76 (BP Location: Right arm, Patient Position: Sitting) Pulse 105 Ht 167.5 cm Wt 93 kg LMP (LMP Unknown) BMI 33.15 kg/m?? PHYSICAL EXAMINATION Body mass index is 33.15 kg/m??. General: Very pleasant woman with elevated BMI 33.1 Vessels: Carotid 4/4 no bruit Pedal pulses are intact with +4 posterior tibial pulse, +2 dorsalis pedal pulse. Neck: JVP difficult to assess Heart: Heart sounds S1-S2 no gallop rub or murmur Lungs: Clear to auscultation Extremities: No edema Skin: She does indeed have acrocyanosis with fix bluish discoloration of all of the toes. I do not see any livido to indicate atheroemboli no open ulcerations Neurologic: Alert oriented : DIAGNOSTIC REVIEW All labs and diagnostic studies were reviewed. ASSESSMENT / PLAN #1 . Acrocyanosis #2 Pernio #3 Very mild lower extremity peripheral arterial disease-asymptomatic #4 Hyperkalemia secondary to lisinopril Today we discussed the differential diagnosis of ???blue toes?? . This has the appearance of acrocyanosis. This could be a benign disorder or secondary for example to cholesterol embolization however Phillip not see any evidence of livido, the blue toes are painless and therefore not consistent with atheroemboli. We discussed the option of imaging of the abdominal aorta but this already has been done a year the so ago and was negative for aneurysm. She has tried some blisters at the end of the toes this winter and in addition to acrocyanosis this would be indicative of an inflammatory, vasospastic disorder called pernio. General this can be associated with vaso constriction of the toes causing some acrocyanosis also some small blisters the toes occurring the winter time usually improving the summer. Is not a vasculitis it does not need prednisone generally not associated with lupus. Both calcium channel blockers an alpha blockers may be effective for this RECOMMENDATION 1. START AMLODIPINE 5 MG DAILY. I did send a prescription to her pharmacy for this. 2. Local warmth wearing appropriate warm socks. 3. Primary care should consider changing lisinopril to losartan 25 mg daily which should lower her potassium. I a.m. happy to see again in the future if she has any worsening symptoms otherwise I think these are benign findings. She of arterial hypertension Brandon Goode., B.Ch. documented in this encounter Plan of Treatment Upcoming Encounters Date Type Specialty Care Team Description 03/25/2022 Office Visit Family Medicine Leslie Gonzalez M.D. [address] [place] [address] [phone] (Wo rk) documented as of this encounter Visit Diagnoses Diagnosis Atherosclerosis Arteriosclerosis Obliter ans Lower Extremity With Claudication (HCC) documented in this encounter Care Teams Product Management Intern Relationship Specialty Start Date End Date Merrill Bee P.A.-C. PCP - General 11/18/16 [address] [place] [phone] documented as of this encounter
--- OUTSIDE RECORDS SUMMARY | 2022-03-22 15:44 | XMS_ITS | Encounter Summary ---
:1950 Author Organization [facility] Address [address] [place] [address] Care Team Providers Name Role Phone Merrill Bee P.A.-C. Primary Care Provider [phone] Encounter Details Date Type Department Care Team Description 11/18/2021 Clinical Communication Department of General Nick Rodriguez, [facility] [place] [facility] [place] [address] [place] [phone] Social History Tobacco Use Types Packs/Day Years Used Date Smoking Tobacco: Former Cigarettes Quit : 1993 Smokeless Tobacco: Never Alcohol Use Standard Drinks/Week Comments Yes 16 (1 standard drink = 0.6 oz pure 2-3 d rinks every night (mixed drink alcohol) or wine) Alcohol Habits Answer Date Recorded How often do you have a drink containing 4 or more times a w [place] 10/05/2021 alcohol? How many drinks containing alcohol [...] or relatives? How often do you attend presybeterian or 1 to 4 times per year 07/2021 methodist services? Do you belong to any clubs or Yes 10/05/2021 organizations such as presybeterian groups, unions, fraternal or athletic groups, or [...] place to sleep or slept in a fdc (including now)? Education Answer Date Recorded What is the highest level of school Master's degree (e.g., M Gogo, MS, 12/01/2018 you have completed or the highest Faustina, MEd, SEAMER, GIORGIO) degree you have received? Sex Assigned at Date Recorded Female 03/07/2018 9:31 AM CDT documented as of this encounter Miscellaneous Notes Telephone Encounter - Karen Ludwig L.P.N. - 11/18/2021 11:42 AM CDT Sent portal message to patient with results and recommendations. Will await any questions. Telephone Encounter - Kendell Rodriguez M.D. - 11/18/2021 7:41 AM CDT Colonoscopy/Endoscopy results Indication: Chest pain Pathology results: Upper endoscopy showed normal esophagus. Biopsies of the esophagus are normal. Stomach showed mild inflammation and biopsies of the stomach do show mild chronic inflammation. I wouldlike her to continue on daily Nexium, as prescribed. Follow up recommendation: Repeat upper endoscopy as needed in the future. No cause for chest pain found. Her chest pain was already improving at the time of the procedure. Kendell Rodriguez M.D. documented in this encounter Plan of Treatment Upcoming Encounters Date Type Specialty Care Team Description 03/25/2022 Office Visit Family Medicine Leslie Gonzalez M.D. [address] [place] [phone] (Wo rk) documented as of this encounter Visit Diagnoses Not on filedocumented in this encounter Care Teams Shift Leader Relationship Specialty Start Date End Date Merrill Bee P.A.-C. PCP - General 11/18/[address] [place] [phone] documented as of this encounter
--- OUTSIDE RECORDS SUMMARY | 2022-03-22 15:44 | XMS_ITS | Encounter Summary ---
:1950 Author Organization [facility] Address [address] [place] [address] Care Team Providers Name Role Phone Merrill Bee P.A.-C. Primary Care Provider [phone] Reason for Visit Reason Comments Results Encounter Details Date Type Department Care Team Description 10/26/2021 Clinical Communication Department of [facility] Merrill Bee, [facility] Medicine, [facility], in [address] [address] [place], [place] [phone] (Work) [phone] Social History Tobacco Use Types Packs/Day Years Used Date Smoking Tobacco: Former Cigarettes Quit : 1993 Smokeless Tobacco: Never Alcohol Use Standard Drinks/Week Comments Yes 16 (1 standard drink = 0.6 oz pure 2-3 d rinks every night (mixed drink alcohol) or wine) Alcohol Habits Answer Date Recorded How often do you have a drink containing 4 or more times a w [place] 10/05/2021 alcohol? How many drinks containing alcohol [...] or relatives? How often do you attend confucianism or 1 to 4 times per year 07/2021 moravian services? Do you belong to any clubs or Yes 10/05/2021 organizations such as confucianism groups, unions, fraternal or athletic groups, or [...] place to sleep or slept in a retirement (including now)? Education Answer Date Recorded What is the highest level of school Master's degree (e.g., Adrien Bowens, MS, 12/01/2018 you have completed or the highest Faustina, MEd, SUPERVISOR MACHINE SETTER, GIORGIO) degree you have received? Sex Assigned at Date Recorded Female 03/07/2018 9:31 AM CDT documented as of this encounter Miscellaneous Notes Telephone Encounter - Franco Swift V., C.M.A. - 10/27/2021 9:25 AM CDT SUBJECTIVE CHIEF COMPLAINT / REASON FOR CALL Results Information Discussed Contacted and discussed with patient recent test results, patient did show an understanding of results. She was notified of the recent advice by the provider to take the lasix prior to labs. Patient informed me that she was just notified after her labs today. Taking the lasix AFTER the blood was drawn. Advised her to keep the upcoming visit on Tuesday. PLAN Disposition/Recommendation: recommended continue engagement in self-management activities Information/Education: patient/caller able to teach back Caller agreeable to plan of care: yes The following references were used: none Telephone Encounter - Nicole Mota - 10/26/2021 3:36 PM CDT Patient called returning nurse call. Please call her back. Telephone Encounter - Maritza Cruz L.P.N. - 10/26/2021 2:47 PM CDT Left message for patient to return call to clinic. Does the patient need to speak to nursing? yes Action needed: Per RAJENDRA Graham patient needs to be informed of the following information: Please call the patient. ??I tried to contact her. ??Her potassium has been high in the past. ??It is elevated again today. ??She was recently seen by vascular Medicine in [place]. ??She was started on amlodipine. ??I would like her to discontinue her lisinopril. ??She will continue on the amlodipine for now. ??I would like her to take a dose of Lasix which I called into her pharmacy today. ??I would like her to take this today and then get her blood drawn again tomorrow and I will see her on Tuesday. documented in this encounter Plan of Treatment Upcoming Encounters Date Type Specialty Care Team Description 03/25/2022 Office Visit Family Medicine Leslie Gonzalez M.D. [address] [place] [phone] (Wo rk) documented as of this encounter Visit Diagnoses Not on filedocumented in this encounter Care Teams Software Technical Lead Relationship Specialty Start Date End Date Merrill Bee P.A.-C. PCP - General 11/18/[address] [place] [phone] documented as of this encounter
--- OUTSIDE RECORDS SUMMARY | 2022-03-22 15:44 | XMS_ITS | Encounter Summary ---
:1950 Author Organization [facility] Address [address] [place] [address] Care Team Providers Name Role Phone Merrill Bee P.A.-C. Primary Care Provider [phone] Reason for Referral Outpatient (Routine) - Closed Specialty Diagnoses / Procedures Referred By Contact Refer red To Contact Merrill Bee P. A.-C. [address] [phone] Referral ID Status Reason Start Date Expiration Date Visits Requ ested Visits Authorized [id number] Closed 01/19/2022 01/19/2023 1 1 Scheduling Instructions AWV Tack On Reason for Visit Reason Comments Medicare Annual Wellness Visit Subsequent Encounter Details Date Type Department Care Team Description 01/19/2022 Clinical Communication Department of Nacho Bee Annual Family MedicineMerrill Well[facility] Subsequent in [address] [address] [place], [place] [phone] (Work) [phone] Social History Tobacco Use Types Packs/Day Years Used Date Smoking Tobacco: Former Cigarettes Quit : 1993 Smokeless Tobacco: Never Alcohol Use Standard Drinks/Week Comments Yes 16 (1 standard drink = 0.6 oz pure 2-3 d rinks every night (mixed drink alcohol) or wine) Alcohol Habits Answer Date Recorded How often do you have a drink containing 4 or more times a w [place] 10/05/2021 alcohol? How many drinks containing alcohol [...] or relatives? How often do you attend islam or 1 to 4 times per year 07/2021 mormonism services? Do you belong to any clubs or Yes 10/05/2021 organizations such as islam groups, unions, fraternal or athletic groups, or [...] have completed or the highest Faustina, MEd, CLASS C DRIVER, GIORGIO) degree you have received? Sex Assigned at Date Recorded Female 03/07/2018 9:31 AM CDT documented as of this encounter Plan of Treatment Upcoming Encounters Date Type Specialty Care Team Description 03/25/2022 Office Visit Family Medicine Leslie Gonzalez M.D. [address] [place] [phone] (Wo rk) Scheduled Referrals Name Type Priority Associated Diagnoses Order S rebeka Primary Care nurse Outpatient Referral Routine Ex pected: visit (clinic) - 01/20/2022 [facility] [place]; (Approxim ate), Medicare Annual Expires: Wellness 04/21/2023 documented as of this encounter Visit Diagnoses Not on filedocumented in this encounter Care Teams Assembler Trim Relationship Specialty Start Date End Date Merrill Bee P.A.-C. PCP - General 11/18/[address] [place] [phone] documented as of this encounter
--- OUTSIDE RECORDS SUMMARY | 2022-03-22 15:44 | XMS_ITS | Encounter Summary ---
:1950 Author Organization [facility] Address [address] [place] [address] Care Team Providers Name Role Phone Merrill Bee P.A.-C. Primary Care Provider [phone] Reason for Referral Outpatient (Routine) - Closed Specialty Diagnoses / Procedures Referred By Contact Refer red To Contact Diagnoses Pain Wrist Right Merrill Bee P.A.-C. [facility] [place] [facility] Procedures DX Wrist Right 3+ Views [address] [place] [address] Referral ID Status Reason Start Date Expiration Date Visits Requ ested Visits Authorized [id number] Closed 01/20/2022 01/20/2023 1 1 Outpatient (Routine) - Closed Specialty Diagnoses / Procedures Referred By Contact Refer red To Contact Diagnoses Screening Mammogram Breast Cancer Merrill Bee P.A.-C. [facility] [place] [facility] Procedures BI Breast Screening Bilateral with Tomosynthesis [address] [place] [address] Referral ID Status Reason Start Date Expiration Date Visits Requ ested Visits Authorized [id number] Closed 01/20/2022 01/20/2023 1 1 Outpatient (Routine) - Authorized Specialty Diagnoses / Procedures Referred By Contact Refer red To Contact Family Medicine Merrill Bee P. A.-C. [facility] [address] [phone] Referral ID Status Reason Start Date Expiration Date Visits V isits Requested Authorized [id number] Authorized 01/20/2022 01/20/2023 1 1 Reason for Visit Reason Comments Annual Exam Go over lab results. Right s kenny of right hand is sore. Does not remember bumping or hitting it. Has b een bothering since 01/15/22. Outpatient (Routine) - Closed Specialty Diagnoses / Procedures Referred By Contact Refer red To Contact Family Medicine [facility]. A.-[facility]. [facility] [address] [phone] Referral ID Status Reason Start Date Expiration Date Visits Requ ested Visits Authorized [id number] Closed 01/12/2021 01/12/2022 1 1 Encounter Details Date Type Department Care Team Description 01/20/2022 Comprehensive Visit Department of Brett Bee olesterolemia (Primary Dx); Family MedicineMerrill, Hypertensio n Essential Primary; Preet Marte Acrocyanosis (HCC); Clinic, in [address] [place] [address] Neuropathy Joan pheral; [place], Preoperative Exam; [place], [place] Screening Mammogram Breast C ancer; [address] [phone] Pain Wrist Right; [place], [place] [phone] Pain Knee Left [phone] (Work) [phone] Social History Tobacco Use Types Packs/Day Years [...] containing 4 or more times a w [place] 10/05/2021 alcohol? How many drinks containing alcohol [...] or relatives? How often do you attend cheondoism or 1 to 4 times per year 07/2021 restorationism services? Do you belong to any clubs or Yes 10/05/2021 organizations such as cheondoism groups, unions, fraternal or athletic groups, or [...] have completed or the highest Faustina, MEd, ANCILLARY SPECIALIST, GIORGIO) degree you have received? Sex Assigned at Date Recorded Female 03/07/2018 9:31 AM CDT documented as of this encounter Last Filed Vital Signs Vital Sign Reading Time Taken Comments Blood Pressure 135/77 01/20/2022 8:16 AM CDT Average Pulse 89 01/20/2022 8:16 AM CDT Temperature 36.2 ??C (97.1 ??F) 01/20/2022 8:16 AM CDT Respiratory Rate 16 01/20/2022 8:16 AM CDT Oxygen Saturation - - Inhaled Oxygen Concentration - - Weight 93 kg (205 lb 0.4 oz) 01/20/2022 8:16 AM CDT Height 168 cm (5' 6.14) 01/20/2022 8:16 AM CDT Body Mass Index 32.95 01/20/2022 8:16 AM CDT documented in this encounter H&P Notes Merrill Bee P.A.-C. - 01/20/2022 8:30 AM CDT SUBJECTIVE PREOPERATIVE HISTORY AND PHYSICAL CHIEF COMPLAINT / REASON FOR VISIT Steph Simmons is a 71 y.o. female who presents for evaluation of Annual Exam (Go over lab results. Right side of right hand is sore. Does not remember bumping or hitting it. Has been bothering since 01/15/22.). HISTORY OF PRESENT ILLNESS Steph presents today for preop history and physical. For the most part she is feeling well. She is scheduled for a knee replacement. She has hypertension that is well controlled. 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 A larger dose of amlodipine caused lower extremity edemabut this is doing much better on the 5 mg daily. Her lipids are well controlled on the atorvastatin. Current Outpatient Medications Medication Sig Dispense Refill acetaminophen (TYLENOL) 500 mg tablet Take 650-1,200 mg by mouth 3 (three) times a day as needed. Take 500-1,000 mg by mouth 3 times daily if needed. Max acetaminophen dose: 4000mg in 24 hours. amLODIPine (NORVASC) 5 mg tablet Take 1 tablet (5 mg total) by mouth daily. 90 tablet 3 atorvastatin (LIPITOR) 40 mg tablet Take 1 tablet (40 mg total) by mouth at bedtime. 90 tablet 3 B complex-vitamin (for_SUPER B-50) capsule Take 1 capsule by mouth daily. CALCIUM CARBONATE/VITAMIN D3 (CALCIUM 600 WITH VITAMIN D3 ORAL) Take by mouth 2 (two) times a day. cholecalciferol, vitamin D3, 25 mcg (1,000 Unit) tablet Take 1,000 Units by mouth daily. DOCOSAHEXANOIC ACID/EPA (FISH OIL ORAL) daily. DULoxetine (CYMBALTA) [address] capsule Take 2 capsules (120 mg total) by mouth daily. 180 capsule 3 esomeprazole (NexIUM) [address] capsule Take 20 mg by mouth daily. GLUCOSAMINE/CHONDROITIN SULF A (GLUCOSAMINE-CHONDROITIN ORAL) daily. latanoprost (for_XALATAN) 0.005 % ophthalmic solution Administer 1 drop into both eyes at bedtime. losartan-hydroCHLOROthiazide (HYZAAR) 50-12.5 mg per tablet Take 1 tablet by mouth daily. 90 tablet3 magnesium oxide (MAG-OX) 400 mg (241.3 mg magnesium) tablet Take 400 mg by mouth daily. meclizine (ANTIVERT) 25 mg tablet TAKE 1 TABLET BY MOUTH THREE TIMES DAILY NEEDED FOR DIZZINESS 90 tablet 3 multivitamin (THERAGRAN) tablet Take 1 tablet by mouth daily. omega-3 fatty acids-fish oil 360-1,200 mg capsule Take 1 capsule by mouth. polyethylene glycol (MIRALAX) 17 gram/dose oral powder Take 17 g by mouth daily. Measure 17g in thecap provided and dissolve completely in 8 ounces of liquid as directed and drink once a day TURMERIC ORAL Take 1 capsule by mouth daily. VIT C/VIT E/LUTEIN/MIN/OMEGA-3 (OCUVITE ORAL) Take 1 tablet by mouth daily. No current facility-administered medications for this visit. Allergies Allergen Reactions Amoxicillin Diarrhea Levofloxacin Hives Morphine Hives Piroxicam Other (see comments) swollen hands and feet, ankles Pregabalin Other (see comments) fatigue, edema at high dose REVIEW OF SYSTEMS General: Denies recent fever, weight loss, or extreme fatigue. Eyes: Denies double vision or sudden loss of vision. ENT: Denies sore throat, runny nose, ear pain, or hearing loss. Heart:: Denies chest pain or irregular heartbeats. Respiratory: Denies cough, wheezing, shortness of breath. Digestion: Denies nausea, vomiting, diarrhea or constipation. Genito/Urinary: Denies frequent or painful urination. Skin: Denies rash, sores, excessive bruising, or change of a mole. Nerves/Brain: Denies headache, persistent weakness or numbness. Endocrine: Denies excessive thirst or urination, cold or heat intolerance. Blood: Denies unusual bruising or bleeding or enlarged lymph nodes. MEDICAL HISTORY Patient Active Problem List Diagnosis Hypercholesterolemia Neuropathy Peripheral Hypertension Essential Primary Spinal Stenosis Lumbosacral Region Acrocyanosis (HCC) Past Surgical History: Procedure Laterality Date APPENDECTOMY N/A 11/18/1993 Appendectomy APPENDECTOMY 1994 CARPAL TUNNEL RELEASE Right 1981 COLON SURGERY 1994 HYSTERECTOMY 1994 LEFT COLECTOMY N/A 11/18/1993 Resection of descending colon SALPINGO - OOPHORECTOMY Social History Tobacco Use Smoking status: Former Types: Cigarettes Quit date: 03/25/1994 Years since quittin.8 Smokeless tobacco: Never Vaping Use Vaping Use: never used Substance Use Topics Alcohol use: Yes Alcohol/week: 25.0 standard drinks Types: 12 Glasses of wine, 7 Cans of beer, 6 Standard drinks or equivalent per week Comment: 2-3 drinks every night (mixed drink or wine) Drug use: No Family History Problem Relation Age of Onset Lung cancer Father Colitis Brother Hypertension Brother Seizures Brother Hypertension Brother Other cancer Mother stomach Tuberculosis Maternal Grandfather Coronary artery disease Father's Brother OBJECTIVE Vitals: 01/20/22 0816 BP: 135/77 BP Location: Right arm Patient Position: Sitting Cuff Size: Regular Pulse: 89 Resp: 16 Temp: 36.2 ??C TempSrc: Temporal Weight: 93 kg Height: 168 cm Body mass index is 32.95 kg/m??. PHYSICAL EXAMINATION General: Patient appears in no acute distress. ENT: TMs no erythema. Throat no erythema. Neck: No lymphadenopathy. No thyroid masses. Heart: Regular rate and rhythm. No murmurs. Lungs: Clear to auscultation. Abdomen: Soft and nontender to palpation. ASSESSMENT / PLAN #1 Hypercholesterolemia Continue on her statin #2 Hypertension Essential Primary Continue on her losartan hydrochlorothiazide and amlodipine #3 Acrocyanosis (HCC) Continue on the amlodipine #4 Neuropathy Peripheral This has been chronic and is stable #5 Preoperative Exam She is ASA class two for surgery. No restrictions. Follow-up as scheduled #6 Screening Mammogram Breast Cancer She is due for mammogram which we will set up #7 Pain Wrist Right She does have some chronic pain in her right wrist in the distal ulna. I am going to do an x-ray of this area. She has a little swelling on the extensor surface of her wrist as well which could be consistent with a ganglion it may be contributing to these symptoms. If her x-ray is negative I will haveher wear a wrist splint for few weeks and see if this gets better. If it does not get better I will have her follow-up with orthopedics #8 Pain Knee Left Follow up for surgery as scheduled. Total time spent 35 minutes Merrill Bee P.A.-C. documented in this encounter Plan of Treatment Upcoming Encounters Date Type Specialty Care Team Description 03/25/2022 Office Visit Family Medicine Leslie Gonzalez M.D. [address] [place] [address] [phone] (Wo rk) Scheduled Orders Name Type Priority Associated Diagnoses Order [facility] Comprehensive Metabolic Lab Routine Hypercho lesterolemia Expected: 01/20/2023 Panel Hypertension Essential (Appr oximate), Primary Expires: 2023 Lipid Panel Lab Routine Hypercholesterol emia Expected: 01/20/2023 Hypertension Essential (Appr oximate), Primary Expires: 2023 Scheduled Referrals Name Type Priority Associated Diagnoses Order [facility] Family Medicine Outpatient Referral Routine Expec marc: office visit 01/20/2023 (clinic) (Approximate), Expires: 04/22/2023 documented as of this encounter Results BI Breast Screening Bilateral with Tomosynthesis (01/21/2022 11:39 AM CDT) Anatomical Region Laterality Modality Breast, Breast Imaging RST LOS, Breast Imaging ARZ LOS, Shahrz[address] st Bilateral Mammography Imaging FLA LOS Specimen (Source) Anatomical Collection Method Collection Time Re ceived Time Location / / Volume Laterality 01/21/2022 4:22 PM CDT Impressions 01/21/2022 4:29 PM CDT Negative. RECOMMENDATION: ??Annual Screening Mammo gram ASSESSMENT: ??BI-RADS: 1: Negative. Narrative 01/21/2022 4:29 PM CDT EXAM: ??BI BREAST SCREENING BILATERAL WITH TOMOSYNTHESIS Current study was evaluated with a [employer] ter Aided Detection (CAD) system. INDICATION: ??Screening [...] Negative. Merrill Bee P.A.-C. IMG BI PROCEDURES DX Wrist Right 3+ Views [...] in this encounter Visit Diagnoses Diagnosis Hypercholesterolemia - Primary Hypertension Essential Primary Acrocyanosis (HCC) Neuropathy Peripheral Preoperative Exam Screening Mammogram Breast Cancer Pain Wrist Right Pain Knee Left Pain Wrist Right Screening Mammogram Breast Cancer documented in this encounter Care Teams Strainer Tender Relationship Specialty Start Date End Date Merrill Bee P.A.-C. PCP - General 11/18/[address] [place] [phone] documented as of this encounter
--- OUTSIDE RECORDS SUMMARY | 2022-03-22 15:44 | XMS_ITS | Encounter Summary ---
:1950 Author Organization [facility] Address [address] [place] [address] Care Team Providers Name Role Phone Merrill Bee P.A.-C. Primary Care Provider [phone] Encounter Details Date Type Department Care Team Description 10/28/2021 Hospital Encounter Department of Merrill Bee Hyp erkalemia Laboratory Medicine in [place], [place] [address] [facility] [address] [place] [phone] Social History Tobacco Use Types Packs/Day Years Used Date Smoking Tobacco: Former Cigarettes Quit : 1993 Smokeless Tobacco: Never Alcohol Use Standard Drinks/Week Comments Yes 16 (1 standard drink = 0.6 oz pure 2-3 d rinks every night (mixed drink alcohol) or wine) Alcohol Habits Answer Date Recorded How often do you have a drink containing 4 or more times a w [place] 10/05/2021 alcohol? How many drinks containing alcohol [...] meetings of the More than 4 times [facility] year 10/05/2021 clubs or organizations you belong [...] place to sleep or slept in a custodial (including now)? Education Answer Date Recorded What is the highest level of school Master's degree (e.g., Adrien Bowens, MS, 12/01/2018 you have completed or the highest Faustina, MEd, SHIELD CLEANER, GIORGIO) degree you have received? Sex Assigned [...] Visit Family Medicine Leslie Gonzalez M.D. [address] [place] [phone] (Wo rk) documented as of this encounter Procedures Procedure Name Priority Date/Time Associated Diagnosis Comme nts POTASSIUM, S/P Routine 10/28/2021 2:33 PM Hyperkalemia Results for this CDT procedure are i n the results section . documented in this encounter Results Potassium (10/28/2021 2:33 PM CDT) P athologist Signature Potassium, P 5.1 3.6 - 5.2 10/28/2021 OW[place] mmol/L 4:35 PM CDT Specimen Anatomical Collection Method Collection Time Receive d Time (Source) Location / / Volume Laterality Blood (Blood, 10/28/2021 2:33 PM 10/29/19 3:31 Venous) CDT PM CDT Merrill Bee P.A.-C. LAB BLOOD ADD-ON Performing Organization Address City/State/ZIP Code Phon e Number [facility] [address] [place] [address] [place] [address] System in [place] [address] documented in this encounter Visit Diagnoses Diagnosis Hyperkalemia documented in this encounter Care Teams Automobile Tire Builder Relationship Specialty Start Date End Date Merrill Bee P.A.-C. PCP - General 11/18/[address] [place] [phone] documented as of this encounter
--- OUTSIDE RECORDS SUMMARY | 2022-03-22 15:45 | XMS_ITS | Encounter Summary ---
:1950 Author Organization [facility] Address [address] [place] [address] Care Team Providers Name Role Phone Merrill Bee P.A.-C. Primary Care Provider [phone] Encounter Details Date Type Department Care Team Description 06/03/2021 Clinical Communication Department of [facility] Merrill Bee, [facility], [facility], in [address] [address] [place], [place] [phone] (Work) [phone] Social History Tobacco Use Types Packs/Day Years Used Date Smoking Tobacco: Former Cigarettes Quit : 1993 Smokeless Tobacco: Never Alcohol Use Standard Drinks/Week Comments Yes 16 (1 standard drink = 0.6 oz pure 2-3 d rinks every night (mixed drink alcohol) or wine) Alcohol Habits Answer Date Recorded How often do you have a drink containing 4 or more times a w [place] 10/05/2021 alcohol? How many drinks containing alcohol [...] or relatives? How often do you attend scientology or 1 to 4 times per year 07/2021 congregational services? Do you belong to any clubs or Yes 10/05/2021 organizations such as scientology groups, unions, fraternal or athletic groups, or [...] place to sleep or slept in a senior living (including now)? Education Answer Date Recorded What is the highest level of school Master's degree (e.g., M Gogo, MS, 12/01/2018 you have completed or the highest Faustina, MEd, AWS SOLUTION ARCHITECT, GIORGIO) degree you have received? Sex Assigned at Date Recorded Female 03/07/2018 9:31 AM CDT documented as of this encounter Miscellaneous Notes Telephone Encounter - Franco Swift V. CGiovanyM.AGiovany - 06/03/2021 4:16 PM PRODUCT SAFETY CONSULTANT SUBJECTIVE CHIEF COMPLAINT / REASON FOR CALL No chief complaint on file. Information Discussed Contacted the patient and informed her of the recent approval per the provider. PLAN Disposition/Recommendation: recommended continue engagement in self-management activities Information/Education: patient/caller able to teach back Caller agreeable to plan of care: yes The following references were used: none UCT SAFETY CONSULTANT Telephone Encounter - Franco Swift C.MMary - 06/03/2021 1:15 PM PRODUCT SAFETY CONSULTANT For further details, please refer to other note also dated 05/04. Patient states she want to also follow up with PCP. UCT SAFETY CONSULTANT Telephone Encounter - Holly Rae - 06/03/2021 1:08 PM CST Reason for Communication: Pt called and stated she will be getting an injection in her back through [place] and is wondering if it is ok if she stops her regular aspirin for 6 days Current Can Nursing/Provider leave a detailed message?: yes Did the patient refuse triage through Nurse line? (for symptom based concerns): na Action Needed: please call pt and advise Name of Medication (if relevant): aspirin Please send all scheduling replies to scheduling pool. UCT SAFETY CONSULTANT documented in this encounter Plan of Treatment Upcoming Encounters Date Type Specialty Care Team Description 03/25/2022 Office Visit Family Medicine Leslie Gonzalez M.D. [address] [place] [phone] (Wo rk) documented as of this encounter Visit Diagnoses Not on filedocumented in this encounter Care Teams Digital Media Representative Relationship Specialty Start Date End Date Merrill Bee P.A.-C. PCP - General 11/18/[address] [place] [phone] documented as of this encounter
--- OUTSIDE RECORDS SUMMARY | 2022-03-22 15:45 | XMS_ITS | Encounter Summary ---
:1950 Author Organization [facility] Address [address] [place] [address] Care Team Providers Name Role Phone Merrill Bee P.A.-C. Primary Care Provider [phone] Reason for Referral Outpatient (Routine) - Closed Specialty Diagnoses / Procedures Referred By Contact Refer red To Contact Diagnoses Pain Low Back Chronic Radiculopathy Lumbar Earnestine Egan [facility] Procedures [place] Lumbar Spine Interlaminar Epidural Injection Estuardo, M.S. [address] [place] [phone] Referral ID Status Reason Start Date Expiration Date Visits Requ ested Visits Authorized [id number] Closed 06/03/2021 06/03/2022 1 1 P MIXER Reason for Visit Outpatient (Routine) - Closed Specialty Diagnoses / Procedures Referred By Contact Refer red To Contact Diagnoses Pain Low Back Chronic Radiculopathy Lumbar Earnestnie Egan [place] Procedures [place] Lumbar Spine Interlaminar Epidural Injection Estuardo, M.S. [address] [place] [address] Referral ID Status Reason Start Date Expiration Date Visits Requ ested Visits Authorized [id number] Closed 06/03/2021 06/03/2022 1 1 Encounter Details Date Type Department Care Team Description 06/11/2021 Hospital Encounter Division of Pain Jignesh, Pain Low Back Chronic; Medicine in Earnestine Jurado, Radiculoadriana Garsia P.A.-C., MGiovanyS. [place] [address] [facility] [address] [place] [phone] Social History Tobacco Use Types Packs/Day Years Used Date Smoking Tobacco: Former Cigarettes Quit : 1993 Smokeless Tobacco: Never Alcohol Use Standard Drinks/Week Comments Yes 16 (1 standard drink = 0.6 oz pure 2-3 d rinks every night (mixed drink alcohol) or wine) Alcohol Habits Answer Date Recorded How often do you have a drink containing 4 or more times a w sioux 10/05/2021 alcohol? How many drinks containing alcohol [...] or relatives? How often do you attend orthodox or 1 to 4 times per year 07/2021 scientologist services? Do you belong to any clubs or Yes 10/05/2021 organizations such as orthodox groups, unions, fraternal or athletic groups, or [...] have completed or the highest Faustina, MEd, MILK DRIVER, GIOR[employer]IO) degree you have received? Sex Assigned at Date Recorded Female 03/07/2018 9:31 AM CDT documented as of this encounter Last Filed Vital Signs Vital Sign Reading Time Taken Comments Blood Pressure 138/81 06/11/2021 3:20 PM SYRUP MIXER Pulse 100 06/11/2021 3:20 PM SYRUP MIXER Temperature 36.8 ??C (98.2 ??F) 06/11/2021 2:39 PM SYRUP MIXER Respiratory Rate - - Oxygen Saturation 99% 06/11/2021 3:20 PM SYRUP MIXER Inhaled Oxygen Concentration - - Weight - - Height - - Body Mass Index - - documented in this encounter Medications at Time of Discharge [...] 0 10/22/2015 E/LUTEIN/MIN/OMEGA-3 mouth daily. (OCUVITE ORAL) aspirin 325 mg tablet Take 325 mg by mouth 0 12/17/2021 daily. atorvastatin (LIPITOR) TAKE 1 TABLET BY 90 tablet 3 02/16/ 021 01/20/2022 40 mg tablet MOUTH AT BEDTIME DULoxetine (CYMBALTA) Take 2 capsules (120 180 capsule 3 02/202101/20/[address] capsule mg total) by mouth daily. lisinopriL Take 1 tablet (20 mg 90 tablet 3 01/12/202107/07 (PRINIVIL,ZESTRIL) 20 total) by mouth mg tablet daily. meclizine (ANTIVERT) Take 1 tablet (25 mg 90 tablet 3 01/1212/30/2021 25 mg tablet total) by mouth 3 (three) times a day as needed for dizziness. documented as of this encounter Procedure Notes Maxime Mcfadden M.D. - 06/11/2021 3:00 PM CSTAssociated Order(s): [place] Lumbar Spine Interlaminar Epidural Injection Pre-Procedure Diagnose(s): Pain Low Back Chronic Post-Procedure Diagnose(s): Pain Low Back Chronic; Radiculopathy Lumbar [place] Lumbar Spine Interlaminar Epidural Injection Date/Time: 06/11/2021 3:09 PM Performed by: Maxime Mcfadden M.D. Authorized by: Earnestine Egan PGiovanyAGiovany-Lisa, M.S. Care team members present 1. Soco Daugherty LGiovanyP.N. PROCEDURE SUMMARY Indications: Radiculitis Pre-procedural pain: 8/10 Post-procedural pain: /10 Site: lumbar Lumbar: interlaminar epidural steroid Interlaminar steroid injection: Left L5-S1 Needle or RF cannula: Tuohy Needle size: 20 G Needle length: 3.5 in Flow: not applicable Patient position: prone IMAGING Fluoroscopic image guidance used to localize target, identify at risk structures, and dynamically used to direct therapy to the target. Image(s) acquired and saved. INJECTED MEDICATIONS The injected medication(s) listed was divided equally between the identified injection location(s) Total volume of injectate (mL): 2 Total steroid in injectate (mg): 6 1 mL lidocaine 10 mg/mL (1 %) 6 mg betamethasone acetate & sodium phosphate 6 mg/mL 1 mL iohexoL 300 mg iodine/mL PROCEDURE DETAILS Interlaminar steroid injection - lumbar: Utilizing a loss of resistance technique and intermittent fluoroscopic guidance, the Tuohy needle was advanced into the epidural space. Proper needle positioning was confirmed using multiple fluoroscopic views. After negative aspiration, the contrast was injected confirming epidural spread without evidence of intravascular or the intrathecal spread. The injectate was injected slowly and incrementally into the epidural space. The solution was injected slowly and incrementally. Following the injection the needle was withdrawn flushed with lidocaine as it was fully extracted. The patient tolerated the procedure well and there were no apparent complications. After appropriate observation, the patient was dismissed in good condition under their own power. CONSENT Consent obtained: written UNIVERSAL PROTOCOL All relevant documentation and testing were reviewed and available. All required blood products, implants, devices and or special equipment were made available as applicable. Pre-procedure verificationwas conducted and the correct site was marked if required. A fire risk assessment was done as applicable. The procedural time-out was conducted prior to performing the procedure and confirmed in a procedural pause. PRE-PROCEDURE DETAILS Procedure purpose: Therapeutic Appropriate hand hygiene, gown, cap, mask, protective eyewear, sterile gloves, skin preparation, sterile drape, and strict aseptic technique were utilized as applicable for the procedure: yes Site preparation: Chlorhexidine SEDATION / ANESTHESIA Anesthesia method: local infiltration Local infiltrate type: lidocaine ATTESTATION STATEMENT The teaching physician rule is not applicable. OPERATIVE NOTE INFORMATION Specimens: 0 Drains: 0 Estimated blood loss: 0 Implants: 0 P MIXER documented in this encounter Plan of Treatment Upcoming Encounters Date Type Specialty Care Team Description 03/25/2022 Office Visit Family Medicine Leslie Gonzalez M.D. [address] [place] [address] [phone] (Wo rk) documented as of this encounter Procedures Procedure Name Priority Date/Time Associated Comments Diagnosis FL LUMBAR SPINE RAD - Routine 06/11/2021 3:20 Pain Low Back Results for this INTERLAMINAR (most inpatients PM SYRUP MIXER Chronic procedure are in EPIDURAL INJECTION and all Radiculopathy the resu lts outpatients) Lumbar section. documented in this encounter Results FL LUMBAR SPINE INTERLAMINAR EPIDURAL INJECTION (06/11/2021 3:20 PM SYRUP MIXER) Specimen (Source) Anatomical Location Collection Method / Collectio n Time Received Time / Laterality Volume Narrative Maxime Mcfadden M.D. - 06/11/2021 3: 09 PM SYRUP MIXER Maxime Mcfadden M.D. ? 06/11/2021 ??5:28 PM [place] Lumbar Spine Interlaminar Epidural In jection Date/Time: 06/11/2021 3:09 PM Performed by: Maxime Mcfadden M.D. Authorized by: Earnestine Egan P.A. -C., M.S. Care team members present 1. Soco Daugherty L.P.N. PROCEDURE SUMMARY Indications: Radiculitis Pre-procedural pain: 8/10 Post-procedural pain: 4/10 Site: lumbar Lumbar: interlaminar epidural steroid Interlaminar steroid injection: Left L5- S1 Needle or RF cannula: Tuohy Needle size: 20 G Needle length: 3.5 in Flow: not applicable Patient position: prone IMAGING Fluoroscopic image guidance used to loca lize target, identify at risk structures, and dynamically used to dire ct therapy to the target. Image(s) acquired and saved. INJECTED MEDICATIONS The injected medication(s) listed was di vided equally between the identified injection location(s) Total volume of injectate (mL): 2 Total steroid in injectate (mg): 6 1 mL lidocaine 10 mg/mL (1 %) 6 mg betamethasone acetate & sodium phos phate 6 mg/mL 1 mL iohexoL 300 mg iodine/mL PROCEDURE DETAILS ?? Interlaminar steroid injection - lumbar: Utilizing a loss of resistance technique and intermittent fluoroscopic guidance, the Tuohy needle was advanced into the epidural space. Proper needle positioning was confirmed using multiple fluoroscopic views. After negative aspiration, the contrast was injected confirming epidural spread without evidence of intravascular or the intrathecal spread. The injectate was injected slowly and incrementally into the epidural space. ? ?The solution was injected slowly and incrementally. Following the injecti on the needle was withdrawn flushed with lidocaine as it was fully e xtracted. The patient tolerated the procedure well and there were no aurora arent complications. After appropriate observation, the patient was dismissed in good condition under their own power. ? CONSENT Consent obtained: written UNIVERSAL PROTOCOL All relevant documentation and testing w ere reviewed and available. All required blood products, implants, devic es and or special equipment were made available as applicable. Pre-proced ure verification was conducted and the correct site was marked if required. A fire risk assessment was done as applicable. The procedural time-out w as conducted prior to performing the procedure and confirmed in a procedu ral pause. PRE-PROCEDURE DETAILS Procedure purpose: ??Therapeutic Appropriate hand hygiene, gown, cap, mas k, protective eyewear, sterile gloves, skin preparation, sterile drape, and strict aseptic technique were utilized as applicable for the procedure : yes ?? Site preparation: ??Chlorhexidine SEDATION / ANESTHESIA Anesthesia method: local infiltration Local infiltrate type: lidocaine ATTESTATION STATEMENT The teaching physician rule is not appli cable. OPERATIVE NOTE INFORMATION Specimens: 0 Drains: 0 Estimated blood loss: 0 Implants: 0 Earnestine Egan P.A.-C., M.S. IMG FLUOROSCOPY PROCE DURES documented in this encounter Visit Diagnoses Diagnosis Pain Low Back Chronic Radiculopathy Lumbar documented in this encounter Administered Medications Inactive Administered Medications - up to 3 most recent administrations Medication Order MAR Action Action Date Dose Rate Site betamethasone acetate & sodium Given 06/11/2021 3:09 PM SYRUP MIXER 6 mg phosphate injection 6 mg (CELESTONE SOLUSPAN) 6 mg, injection, One-Time Injection, Starting on Alondra 06/11/21 at 1509, For 1 dose iohexoL 300 mg iodine/mL solution 1 mL Given 06/11/2021 3:09 PM SYRUP MIXER 1 mL (OMNIPAQUE) 1 mL, injection, One-Time Injection, Starting on Alondra 06/11/21 at 1509, For 1 dose lidocaine 10 mg/mL (1 %) injection 1 mL Given 06/11/2021 3:09 PM SYRUP MIXER 1 mL (XYLOCAINE) 1 mL, injection, One-Time Injection, Starting on Alondra 06/11/21 at 1509, For 1 dose documented in this encounter Care Teams X [employer] 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 PCP - General 11/18/16 [address] [place] [phone] documented as of this encounter
--- OUTSIDE RECORDS SUMMARY | 2022-03-22 15:45 | XMS_ITS | Encounter Summary ---
:1950 Author Organization [facility] Address [address] [place] [address] Care Team Providers Name Role Phone Merrill Bee P.A.-C. 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) [facility] Procedures Lower Extremity Arterial (BHANU) - Exercise (Claudication) Namrata.Nikhil-CGiovany [address] [place] [address] Referral ID Status Reason Start Date Expiration Date Visits Requ ested Visits Authorized [id number] Closed 10/15/2021 10/15/2022 1 1 Outpatient (Routine) - Closed Specialty Diagnoses / Procedures Referred By Contact Refer red To Contact Vascular Medicine Diagnoses Atherosclerosis 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 [facility] Region Procedures DX Chest AP or PA and Lateral 2 Views [address] [place] [address] Referral ID Status Reason Start Date Expiration Date Visits Requ ested Visits Authorized [id number] Closed 10/15/2021 10/15/2022 1 1 Reason for Visit Reason Comments Swollen Glands States she has swollen gland s that hurt and has pain across her upper chest. Noted for a couple of weeks. States the pain is worse when she swallows. Encounter Details Date Type Department Care Team Description 10/15/2021 Office Visit Department of [place]ira Self Reflux Disease (Primary Dx); Medicine, [place] Waldo Momin Alcohol Moderate Or Severe Use Disorder (Dependence) Uncomplicated (HCC); Clinic, in [address] [place] [address] Lymphadenitis Cervical; [place], [place] Dermatitis; [address] [phone] Atherosclerosis Arteriosclerosis Obliter ans Lower Extremity With Claudication (HCC) [place], [place] [phone] (Work) [phone] Social History Tobacco Use Types Packs/Day Years Used Date Smoking Tobacco: Former Cigarettes Quit : 1993 Smokeless Tobacco: Never Tobacco Cessation: Counseling Given: Yes Alcohol Use Standard Drinks/Week Comments Yes 16 (1 standard drink = 0.6 oz pure 2-3 d rinks every night (mixed drink alcohol) or wine) Alcohol Habits Answer Date Recorded How often do you have a drink containing 4 or more times a w [place] 10/05/2021 alcohol? How many drinks containing alcohol [...] or relatives? How often do you attend christian or 1 to 4 times per year 07/2021 lutheran services? Do you belong to any clubs or Yes 10/05/2021 organizations such as christian groups, unions, fraternal or athletic groups, or [...] have completed or the highest Faustina, MEd, CUSTOMER SUPPLY CHAIN ANALYST, GIORGIO) degree you have received? Sex Assigned at Date Recorded Female 03/07/2018 9:31 AM CDT documented as of this encounter Last Filed Vital Signs Vital Sign Reading Time Taken Comments Blood Pressure 129/77 10/15/2021 9:35 AM CDT Pulse 80 10/15/2021 9:35 AM CDT Temperature 36.1 ??C (96.9 ??F) 10/15/2021 9:35 AM CDT Respiratory Rate 18 10/15/2021 9:35 AM CDT Oxygen Saturation - - Inhaled Oxygen Concentration - - Weight 92.5 kg (204 lb 0.6 oz) 10/15/2021 9:35 AM CDT Height 166.5 cm (5' 5.55) 10/15/2021 9:35 AM CDT Body Mass Index 33.38 10/15/2021 9:35 AM CDT documented in this encounter Progress Notes Merrill Bee P.A.-C. - 10/15/2021 9:30 AM CDT SUBJECTIVE CHIEF COMPLAINT / REASON FOR VISIT Steph Simmons is a 71 y.o. female who presents for evaluation of Swollen Glands (States she has swollen glands that hurt and has pain across her upper chest. Noted for a couple of weeks. States thepain is worse when she swallows. ). HISTORY OF PRESENT ILLNESS Steph presents today with a couple different issues. She has some pain with swallowing that has been going on for quite some time. Her mom has a history of stomach cancer. She is concerned about this she has a longstanding history of esophageal reflux. She also feels like she has some swelling of her lymph nodes in her neck. She also has some discoloration of her toes that has been ongoing issue for quite some time and she is concerned about this she also has pain in her feet when she walks. This is improved when she stops walking. Patient Active Problem List Diagnosis ??? Hypercholesterolemia ??? Neuropathy Peripheral ??? Hypertension Essential Primary ??? Spinal Stenosis Lumbosacral Region ??? Edema Leg ??? Alcohol Moderate Or Severe Use Disorder (Dependence) Uncomplicated (HCC) OBJECTIVE Vitals: 10/15/21 0935 BP: 129/77 BP Location: Right arm Patient Position: Sitting Cuff Size: Large Pulse: 80 Resp: 18 Temp: 36.1 ??C TempSrc: Temporal Weight: 92.5 kg Height: 166.5 cm Body mass index is 33.38 kg/m??. PHYSICAL EXAMINATION In general she appears in no acute distress ENT: TMs no erythema throat no erythema Neck: She has some palpable submandibular lymphadenopathy in the right side but it is quite minimal.It is nontender to the touch. No other lymph nodes were palpable in the supraclavicular or axillary lymph node region. Heart: Regular rate rhythm no murmurs Lungs: Clear to auscultation Abdomen: Soft and nontender Lower extremities: She has a palpable right posterior tibialis pulse and a palpable left dorsalis pedis pulse. She does have a very bluish discoloration of her toes bilaterally. They are cool to the touch this has been chronic and she does have a few areas of skin irritation on the plantar surface of her great toes bilaterally. ASSESSMENT / PLAN #1 Alcohol Moderate Or Severe Use Disorder (Dependence) Uncomplicated (HCC) She has cut back on her alcohol consumption which I congratulated her on #2 Gastroesophageal Reflux Disease This has been a chronic issue and she does have some dysphagia. She has been using the Nexium for quite some time but she does have a family history of stomach cancer. I think it would be reasonable tolook into this further were going to set her up with an EGD. Today's visit will count as her preop history and physical she is ASA class two for surgery. Good to go. No restrictions #3 Lymphadenitis Cervical I am going to do a CBC a C reactive protein and a chest x-ray. I will notify her when I get these results #4 Dermatitis I am concerned about the discoloration of her toes bilaterally as well as her claudication symptoms.I am going to set up a vascular Medicine consult in addition to ankle brachial index. 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 Follow-up as scheduled. Total time spent 40 minutes Merrill Bee P.A.-C. documented in this encounter Plan of Treatment Upcoming Encounters Date Type Specialty Care Team Description 03/25/2022 Office Visit Family Medicine Leslie Gonzalez M.D. [address] [place] [address] [phone] (Wo rk) Scheduled Referrals Name Type Priority Associated Diagnoses [facility] - Outpatient Routine Atherosclerosis Expec marc: PAD / claudication / Referral Arteriosclerosis 05/2022 ischemia consult Obliterans Lower (Approx imate), (clinic) Extremity With Expires: Claudication (HCC) 3 documented as of this encounter Results Lower Extremity Arterial (BHANU) [...] 1.0 mph (10% grade) for (76 yards). ?? Standard protocol: ??2.0 mph [...] mph (10% grade) for 43 (76 yards). Standard protocol: 2.0 mph (10% [...] studies. Merrill Bee P.A.-C. CV VASCULAR PROCEDURES (ABNORMAL) Comprehensive Metabolic Panel (10/15/2021 10:44 AM CDT) Analysis Performed At Patho logist Time Signature Potassium, P 5.5 (H) 3.6 - 5.2 10/15/2021 [facility] mmol/L 2:13 PM CDT Sodium, P 137 135 - 145 10/15/2021 [place] mmol/L 2:13 PM CDT Chloride, P 102 98 - 107 10/15/2021 [place] mmol/L 2:13 PM CDT Bicarbonate, P 21 (L) 22 - 29 10/15/2021 [facility] mmol/L 2:13 PM CDT Anion Gap, P 14 7 - 15 10/15/2021 [facility] 2:13 PM CDT BUN (Blood Urea 27 (H) 6 - 21 10/15/2021 [facility] Nitrogen), P mg/dL 2:13 PM CDT Creatinine 1.05 (H) 0.59 - 10/15/2021 [facility] 1.04 mg/dL 2:13 PM CDT eGFR-Black/Afri 61 >=60 10/15/2021 [facility] can Sudanese mL/min/BSA 2:13 PM CDT Comment: ----ADDITIONAL INFORMATION---- Estimated GFR calculated using the 2009 CKD_EPI creatinine equation. eGFR Non-Black/ 53 (L) >=60 mL/min/BSA 10/15/2021 2:13 PM CDT [facility] Sudanese Comment: ----ADDITIONAL INFORMATION---- Estimated GFR calculated using the 2009 CKD_EPI creatinine equation. Calcium, Total, P 10.1 8.8 - 10.2 mg/dL 10/15/2021 2:13 PM CDT [facility] Glucose, P 132 70 - 140 mg/dL 10/15/2021 2:13 PM CDT O ROGERIO Protein, Total, P 7.5 6.3 - 7.9 g/dL 10/15/2021 2:13 P M CDT [facility] Albumin, P 4.6 3.5 - 5.0 g/dL 10/15/2021 2:13 PM CDT O ROGERIO Aspartate Aminotransferase 23 8 - 43 U/L 10/15/2021 2 :13 PM CDT [facility] (AST), P Alkaline Phosphatase, P 83 35 - 104 U/L 10/15/2021 2: 13 PM CDT [facility] Alanine Aminotransferase (ALT), 19 7 - 45 U/L 022 2:13 PM CDT [facility] P Bilirubin, Total, P 0.4 <=1.2 mg/dL 10/15/2021 2:13 PM CDT [facility] Specimen Anatomical Collection Method Collection Time Receive d Time (Source) Location / / Volume Laterality Blood (Blood, 10/15/2021 10:44 10/15/2021 Venous) AM CDT 12:51 PM CDT Merrill Bee P.A.-C. LAB BLOOD ADD-ON Performing Organization Address City/[facility]/ZIP Code Phon e Number [facility]- [address] [place] [address] [place] [address] System in [place] [address] CRP (C-Reactive Protein) (10/15/2021 10:44 AM CDT) P athologist Signature C-Reactive 3.6 <=8.0 mg/L 10/15/2021 [facility] Protein (CRP), 2:13 PM CDT P Specimen Anatomical Collection Method Collection Time Receive d Time (Source) Location / / Volume Laterality Blood (Blood, 10/15/2021 10:44 10/15/2021 Venous) AM CDT 12:51 PM CDT Merrill WeissCGiovany LAB BLOOD ADD-ON Performing Organization Address City/State/ZIP Code Phon e Number [facility]- [address] [place] [address] [facility] [place] [address] System in [place] [address] (ABNORMAL) CBC with Differential, Blood (10/15/2021 10:44 AM CDT) [facility] gist Method Time Signature Hemoglobin 12.8 11.6 - 10/15/2021 FB60 15.0 g/dL 11:09 AM CDT Hematocrit 38.5 35.5 - 10/15/2021 FB60 44.9 % 11:09 AM CDT Erythrocytes 3.96 3.92 - 10/15/2021 FB60 5.13 11:09 AM CDT x10(12)/L MCV 97.2 78.2 - 10/15/2021 FB60 97.9 fL 11:09 AM CDT RBC Distrib Width 11.9 (L) 12.2 - 10/15/2021 FB60 16.1 % 11:09 AM CDT Platelet Count 350 157 - 371 10/15/2021 FB60 x10(9)/L 11:09 AM CDT Leukocytes 5.6 3.4 - 9.6 10/15/2021 FB60 x10(9)/L 11:09 AM CDT Neutrophils 3.88 1.56 - 10/15/2021 FB60 6.45 11:09 AM CDT x10(9)/L Lymphocytes 1.08 0.95 - 10/15/2021 FB60 3.07 11:09 AM CDT x10(9)/L Monocytes 0.49 0.26 - 10/15/2021 FB60 0.81 11:09 AM CDT x10(9)/L Eosinophils 0.15 0.03 - 10/15/2021 FB60 0.48 11:09 AM CDT x10(9)/L Basophils 0.04 0.01 - 10/15/2021 FB60 0.08 11:09 AM CDT x10(9)/L Specimen Anatomical Collection Method Collection Time Receive d Time (Source) Location / / Volume Laterality Blood (Blood, 10/15/2021 10:44 10/15/2021 Venous) AM CDT 10:44 AM CDT Merrill Bee P.A.-C. LAB BLOOD ADD-ON Performing Organization Address City/State/ZIP Code Phon e Number [facility]- [address] [place] [address] [facility] [address] [place] [address] System in [place] [address] DX Chest AP or PA and Lateral 2 Views (10/15/2021 10:35 AM CDT) Anatomical Region Laterality Modality Chest, Thoracic RST LOS, Thoracic ARZ LOS, Thoracic N/A Digital Radiography FLA LOS Specimen (Source) Anatomical Collection Method Collection Time Re ceived Time Location / / Volume Laterality 10/15/2021 11:08 AM CDT Impressions 10/15/2021 11:09 AM CDT No focal infiltrate or consolidation. No pleural effusion or pneumothorax. Cardiac silhouette within normal limits. Aortic calcification. Slight lower thoracic convex right curve with degenerative change in the spine. Compar yulissa with 08/02/2014. Narrative 10/15/2021 11:09 AM CDT EXAM: DX CHEST AP OR PA AND LATERAL 2 VIEWS Procedure Note Tracy Goldberg M.D. - 10/15/2021Form atting of this note might be different from the original. EXAM: DX CHEST AP OR PA AND LATERAL 2 EWS IMPRESSION: No focal infiltrate or consolidation. No pleural effusion or pneumothorax. Cardiac silhouette within normal limits. Aortic calcification. Slight lower thoracic convex right curve with degenerative change in the spine. Compar yulissa with 08/02/2014. Merrill Bee P.A.-C. IMG DIAGNOSTIC IMAGING PROCE DURES documented in this encounter Visit Diagnoses Diagnosis Gastroesophageal Reflux Disease - Primar y Alcohol Moderate Or Severe Use Disorder (Dependence) Uncomplicated (HCC) Lymphadenitis Cervical Dermatitis Atherosclerosis Arteriosclerosis Obliter ans Lower Extremity With Claudication (HCC) Gastroesophageal Reflux Disease Lymphadenitis Cervical Atherosclerosis Arteriosclerosis Obliter ans Lower Extremity With Claudication (HCC) documented in this encounter Care Teams Hydraulic Miner Relationship Specialty Start Date End Date Merrill Bee P.A.-C. PCP - General 11/18/16 [address] [place] [phone] documented as of this encounter
--- OUTSIDE RECORDS SUMMARY | 2022-03-22 15:45 | XMS_ITS | Encounter Summary ---
:1950 Author Organization [facility] Address [address] [place] [address] Care Team Providers Name Role Phone Merrill Bee P.A.-C. Primary Care Provider [phone] Reason for Visit Reason Comments Med Refill Encounter Details Date Type Department Care Team Description 02/14/2021 Refill Department of Family Medicine, Merrill Rodriguez P.A.-C. Med Refill [facility], in [address] [place] [phone] [place] [address] [place] [address] [phone] Social History Tobacco Use Types Packs/Day Years Used Date Smoking Tobacco: Former Cigarettes Quit : 1993 Smokeless Tobacco: Never Alcohol Use Standard Drinks/Week Comments Yes 16 (1 standard drink = 0.6 oz pure 2-3 d rinks every night (mixed drink alcohol) or wine) Alcohol Habits Answer Date Recorded How often do you have a drink containing 4 or more times a w [place] 10/05/2021 alcohol? How many drinks containing alcohol [...] 1 to 4 times per year 07/2021 mosque services? Do you belong to any clubs [...] place to sleep or slept in a long term (including now)? Education Answer Date Recorded What is the highest level of school Master's degree (e.g., M [employer], MS, 12/01/2018 you have completed or the highest Faustina, MEd, DIGITAL TECHNICIAN, GIORGIO) degree you have received? Sex Assigned at Date Recorded Female 03/07/2018 9:31 AM CDT documented as of this encounter Plan of Treatment Upcoming Encounters Date Type Specialty Care Team Description 03/25/2022 Office Visit Family Medicine Leslie Gonzalez M.D. [address] [place] [phone] (Wo rk) documented as of this encounter Visit Diagnoses Not on filedocumented in this encounter Care Teams Occupational Therapy Co Director Relationship Specialty Start Date End Date Merrill Bee P.A.-C. PCP - General 11/18/[address] [place] [phone] documented as of this encounter
--- OUTSIDE RECORDS SUMMARY | 2022-03-22 15:45 | XMS_ITS | Encounter Summary ---
:1950 Author Organization [facility] Address [address] [place] [address] Care Team Providers Name Role Phone Merrill Bee P.A.-C. Primary Care Provider [phone] Reason for Visit Reason Comments Upper Endoscopy Date Encounter Details Date Type Department Care Team Description 10/15/2021 Clinical Communication Department of Kendell Rodriguez Up per Endoscopy General Surgery in P, M.D. [place], [place] [address] [place] [phone] Social History Tobacco Use Types Packs/Day Years Used Date Smoking Tobacco: Former Cigarettes Quit : 1993 Smokeless Tobacco: Never Alcohol Use Standard Drinks/Week Comments Yes 16 (1 standard drink = 0.6 oz pure 2-3 d rinks every night (mixed drink alcohol) or wine) Alcohol Habits Answer Date Recorded How often do you have a drink containing 4 or more times a w [place] 10/05/2021 alcohol? How many drinks containing alcohol [...] 1 to 4 times per year 07/2021 sabianist services? Do you belong to any clubs [...] have completed or the highest Faustina, MEd, EMERGENCY VETERINARIAN, GIORGIO) degree you have received? Sex Assigned at Date Recorded Female 03/07/2018 9:31 AM CDT documented as of this encounter Miscellaneous Notes Telephone Encounter - Leonie Johnson - 10/15/2021 10:56 AM CDT SURGEON: Michael PREOP DATE: 10/15/21 Merrill Bee S: SURG DATE: 11/13/21 B: REQUEST FOR SURG: Upper Endoscopy A: ANESTHESIA: R: HOSP WILL CALL WITH TIME LOCATION: [facility] COVID SWAB DATE: 11/09/21 documented in this encounter Plan of Treatment Upcoming Encounters Date Type Specialty Care Team Description 03/25/2022 Office Visit Family Medicine Leslie Gonzalez M.D. [address] [place] [phone] (Wo rk) documented as of this encounter Visit Diagnoses Not on filedocumented in this encounter Care Teams Welder Fitter Apprentice Relationship Specialty Start Date End Date Merrill Bee P.A.-C. PCP - General 11/18/[address] [place] [phone] documented as of this encounter
--- OUTSIDE RECORDS SUMMARY | 2022-03-22 15:45 | XMS_ITS | Encounter Summary ---
:1950 Author Organization [facility] Address [address] [place] [address] Care Team Providers Name Role Phone Merrill Bee P.A.-C. Primary Care Provider [phone] Reason for Visit Outpatient (Routine) - Closed Specialty Diagnoses / Procedures Referred By Contact Refer red To Contact Pain Medicine Earnestine Egan, [facility] anshul Marte, M.S. [address] [place], [place] [address] Referral ID Status Reason Start Date Expiration Date Visits Requ ested Visits Authorized [id number] Closed 06/03/2021 06/03/2022 1 1 Encounter Details Date Type Department Care Team Description 06/04/2021 Virtual Visit Division of Pain Earnestine Egan Neuro adriana Peripheral (Primary Dx); Medicine in Estuardo Jurado, M.S. Pain Low Back Chronic; [place], [place] [address] [facility] Stenosis Spinal [address] [place] [phone] Social History Tobacco Use Types Packs/Day Years Used Date Smoking Tobacco: Former Cigarettes Quit : 1993 Smokeless Tobacco: Never Alcohol Use Standard Drinks/Week Comments Yes 16 (1 standard drink = 0.6 oz pure 2-3 d rinks every night (mixed drink alcohol) or wine) Alcohol Habits Answer Date Recorded How often do you have a drink containing 4 or more times a w [place] 10/05/2021 alcohol? How many drinks containing alcohol [...] or relatives? How often do you attend quaker or 1 to 4 times per year 07/2021 presybeterian services? Do you belong to any clubs or Yes 10/05/2021 organizations such as quaker groups, unions, fraternal or athletic groups, or [...] completed or the highest Faustina, MEd, MEDICAL OFFICE SECRETARY, GIORGIO) degree you have received? Sex Assigned at Date Recorded Female 03/07/2018 9:31 AM CDT documented as of this encounter Progress Notes Earnestine Egan P.A.-C., M.S. - 06/04/2021 9:00 AM CST REFERRAL Earnestine Egan P.A.-C., M.S. CHIEF COMPLAINT / REASON FOR VISIT Pre-Procedure evaluation only. Back and lower extremity pain. Telephone Communication. HISTORY OF PRESENT ILLNESS Steph Simmons is a 71 y.o. female who is referred to the pain clinic for repeat midline L5-S1 interlaminar epidural steroid injection. Today's discussion is held via telephone communication. I last had a virtual visit with the patient 10/17/2020. After that, she underwent a midline L5-S1 interlaminar epidural steroid injection performed 10/27/[address] Chapman. Today she reports she has been doing really well until about 1 month ago. She estimates 85-90% relief initially following the lumbar epidural in October 2020. Currently, her pain is located in the low back L>R and occasionally through the buttocks and posterior legs to the level of the knees. Her pain is worse with stairs, prolonged standing in one place, and carrying things. The pain is improved with sitting down and with exercise. She also utilizes ibuprofen and Aleve prn. Patient denies recent fevers, chills, infections, or antibiotic use. No allergies to contrast dye, local anesthetics or corticosteroid. She does take a 325 mg Aspirin daily, but has held without issue for prior injections. No neurologic red flag symptoms. Pain score today is rated 7/10. Current Outpatient Medications Medication Sig Dispense Refill ??? acetaminophen (TYLENOL) 500 mg tablet Take 650-1,200 mg by mouth 3 (three) times a day as needed. Take 500-1,000 mg by mouth 3 times daily if needed. Max acetaminophen dose: 4000mg in 24 hours. ??? aspirin 325 mg tablet Take 325 mg by mouth once. ??? atorvastatin (LIPITOR) 40 mg tablet TAKE 1 TABLET BY MOUTH AT BEDTIME 90 tablet 3 ??? B complex-vitamin (for_SUPER B-50) capsule Take 1 capsule by mouth daily. ??? CALCIUM CARBONATE/VITAMIN D3 (CALCIUM 600 WITH VITAMIN D3 ORAL) Take by mouth 2 (two) times a day. ??? cholecalciferol, vitamin D3, 25 mcg (1,000 Unit) tablet Take 1,000 Units by mouth daily. ??? DOCOSAHEXANOIC ACID/EPA (FISH OIL ORAL) omega-3 polyunsaturated fatty acids 500 mg oral capsule See Instructions, 2 cap(s) PO 2xDay ??? DULoxetine (CYMBALTA) [address] capsule Take 2 capsules (120 mg total) by mouth daily. 180 capsule 3 ??? esomeprazole (NexIUM) [address] capsule Take 20 mg by mouth daily. ??? GLUCOSAMINE/CHONDROITIN SULF A (GLUCOSAMINE-CHONDROITIN ORAL) daily. ??? latanoprost (for_XALATAN) 0.005 % ophthalmic solution Administer 1 drop into both eyes at bedtime. ??? lisinopriL (PRINIVIL,ZESTRIL) 20 mg tablet Take 1 tablet (20 mg total) by mouth daily. 90 tablet3 ??? magnesium oxide (MAG-OX) 400 mg (241.3 mg magnesium) tablet Take 400 mg by mouth daily. ??? meclizine (ANTIVERT) 25 mg tablet Take 1 tablet (25 mg total) by mouth 3 (three) times a day as needed for dizziness. 90 tablet 3 ??? multivitamin (THERAGRAN) tablet Take 1 tablet by mouth daily. ??? polyethylene glycol (MIRALAX) 17 gram/dose oral powder Take 17 g by mouth daily. Measure 17g in the cap provided and dissolve completely in 8 ounces of liquid as directed and drink once a day ??? TURMERIC ORAL Take 1 capsule by mouth daily. ??? VIT C/VIT E/LUTEIN/MIN/OMEGA-3 (OCUVITE ORAL) Take 1 tablet by mouth daily. No current facility-administered medications for this visit. Allergies: Amoxicillin, Levofloxacin, Morphine, Piroxicam, and Pregabalin The following portions of the patient's history were reviewed and updated as appropriate: family history, social history and surgical history. OBJECTIVE IMAGING MRI Lumbar spine dated 04/01/2020 was reviewed showing small broad-based disc bulge and posterior annular fissure with moderate facet arthropathy and ligamentum flavum thickening at L5-S1 with mild central canal stenosis. There is gdqgjrqy-uh-yxgfdz central canal stenosis at L3-4 and severe stenosis at L4-5. ASSESSMENT / PLAN #1 Neuropathy Peripheral #2 Pain Low Back Chronic #3 Stenosis Spinal 1. Injections: It is reasonable for Ms. Simmons to proceed with the procedure as ordered. She has no contraindications to proceeding. Risks and benefits were reviewed. Patient was asked to allow 2 weeks for the procedure to be fully beneficial. Today's informed consent discussion was conducted over the telephone. Patient verbalized an understanding of the information discussed, all questions were answered and patient encouraged to contact us with any additional questions or concerns. The risks, benefits, and alternatives to the planned procedure were discussed in detail, including the risk of exposure to COVID-19 within the facility. Additional consideration has been given to the availability of staff, supplies and equipment, including but not limited to a post-operative bed, a ventilator in the intensive care unit, blood products, and personal protective equipment. All questionspertaining to the procedure and these risks were answered, and the patient agreed to proceed. I personally spent a total of 10 minutes in afx-lvjt-yn-face time performing a review of the record and/or discussion with the patient/caregiver as described above. Followup: Patient will follow up with the pain clinic as needed. Recommend at next appoint she be seen [id number] as I have not personally seen the patient since initial consultation 06/04/2020. PATIENT EDUCATION Ready to learn, no apparent learning barriers were identified: learning preferences included listening. Explained diagnosis and treatment plan; patient expressed understanding of the content. CTOR OF PERIOPERATIVE SERVICES documented in this encounter Plan of Treatment Upcoming Encounters Date Type Specialty Care Team Description 03/25/2022 Office Visit Family Medicine Leslie Gonzalez M.D. [address] [place] [address] [phone] (Wo rk) documented as of this encounter Visit Diagnoses Diagnosis Neuropathy Peripheral - Primary Pain Low Back Chronic Stenosis Spinal documented in this encounter Care Teams Manager Installation Relationship Specialty Start Date End Date Merrill Bee P.A.-C. PCP - General 11/18/[address] [place] [phone] documented as of this encounter
--- OUTSIDE RECORDS SUMMARY | 2022-03-22 15:45 | XMS_ITS | Encounter Summary ---
:1950 Author Organization [facility] Address [address] [place] [address] Care Team Providers Name Role Phone Merrill Bee P.A.-C. Primary Care Provider [phone] Reason for Referral Outpatient (Routine) - Closed Specialty Diagnoses / Procedures Referred By Contact Refer red To Contact Diagnoses Screening Mammogram Breast Cancer Merrill Bee P.A.-C. [facility] Region Procedures BI Breast Screening Bilateral with Tomosynthesis BI Breast Screening Bilateral [address] [place] [address] Referral ID Status Reason Start Date Expiration Date Visits Requ ested Visits Authorized [id number] Closed 01/12/2021 01/12/2022 1 1 Reason for Visit Outpatient (Routine) - Closed Specialty Diagnoses / Procedures Referred By Contact Refer red To Contact Diagnoses Screening Mammogram Breast Cancer Merrill Bee P.A.-C. [facility] Region Procedures BI Breast Screening Bilateral with Tomosynthesis BI Breast Screening Bilateral [address] [place] [address] Referral ID Status Reason Start Date Expiration Date Visits Requ ested Visits Authorized [id number] Closed 01/12/2021 01/12/2022 1 1 Encounter Details Date Type Department Care Team Description 01/20/2021 Hospital Encounter Department of Cielo Bee Mammogram Radiology in Merrill, P.A.-C. Breast Cancer [place], [place] [address] Ramakrishna ERIKA BRIZUELA [phone] Social History Tobacco Use Types Packs/Day Years Used Date Smoking Tobacco: Former Cigarettes Quit : 1993 Smokeless Tobacco: Never Alcohol Use Standard Drinks/Week Comments Yes 16 (1 standard drink = 0.6 oz pure 2-3 d rinks every night (mixed drink alcohol) or wine) Alcohol Habits Answer Date Recorded How often do you have a drink containing 4 or more times a w [place]ibo[place] and [place] tribes 10/05/2021 alcohol? How many drinks containing alcohol [...] or relatives? How often do you attend synagogue or 1 to 4 times per year 07/2021 restorationist services? Do you belong to any clubs or Yes 10/05/2021 organizations such as synagogue groups, unions, fraternal or athletic groups, or [...] have completed or the highest Faustina, MEd, STATOR CONNECTOR, GIORGIO) degree you have received? Sex Assigned [...] mg by mouth 0 12/17/2021 daily. atorvastatin (Lipitor) Take 1 tablet (40 mg 90 tablet 3 02/16/2021 40 mg tablet total) by mouth at bedtime. DULoxetine (CYMBALTA) Take 2 capsules (120 180 [...] Visit Family Medicine Leslie Gonzalez M.D. [address] [place] [address] [phone] (Wo rk) documented as of this encounter Procedures Procedure Name Priority Date/Time Associated Comments Diagnosis BI BREAST SCREENING RAD - Routine 01/20/2021 11:38 Screening Res ults for BILATERAL WITH (most inpatients AM CDT Mammogram Breast this procedure TOMOSYNTHESIS and all Cancer are in the outpatients) results section. documented in this encounter Results BI Breast Screening Bilateral with Tomosynthesis (01/20/2021 11:38 AM CDT) Anatomical Region Laterality Modality Breast, Breast Imaging RST LOS, Breast Imaging ARZ LOS, Shahrz[address] st Bilateral Mammography Imaging FLA LOS Specimen (Source) Anatomical Collection Method Collection Time Re ceived Time Location / / Volume Laterality 01/20/2021 11:50 AM CDT Impressions 01/20/2021 12:02 PM CDT Negative. RECOMMENDATION: ??Annual Screening Mammo gram ASSESSMENT: ??BI-RADS: 1: Negative. Narrative 01/20/2021 12:02 PM CDT EXAM: ??BI BREAST SCREENING BILATERAL WITH TOMOSYNTHESIS Current study was evaluated with a BBE Aided Detection (CAD) system. INDICATION: ??Screening mammogram. COMPARISON: ??Prior exam(s) were availab le and reviewed for comparison. DENSITY: ??c. The breast(s) are heteroge neously dense, which may obscure small masses. FINDINGS: ??No mammographic findings of malignancy. Procedure Note Sharif Kenyon M.D. - 01/20/2021Formattin g of this note might be different from the original. EXAM: BI BREAST SCREENING BILATERAL WITH TOMOSYNTHESIS Current study was evaluated with a MR Prestau ter Aided Detection (CAD) system. INDICATION: Screening [...] Cancer documented in this encounter Care Teams Hand Sizer Relationship Specialty Start Date End Date Merrill Bee P.A.-C. PCP - General 11/18/[address] [place] [phone] documented as of this encounter
--- OUTSIDE RECORDS SUMMARY | 2022-03-22 15:45 | XMS_ITS | Encounter Summary ---
:1950 Author Organization [facility] Address [address] [place] [address] Care Team Providers Name Role Phone Merrill Bee P.A.-C. Primary Care Provider [phone] Reason for Referral Outpatient (Routine) - Closed Specialty Diagnoses / Procedures Referred By Contact Refer red To Contact Diagnoses Screening Mammogram Breast Cancer Merrill Bee P.A.-C. [facility] Procedures BI Breast Screening Bilateral with Tomosynthesis BI Breast Screening Bilateral [address] [place] [address] Referral ID Status Reason Start Date Expiration Date Visits Requ ested Visits Authorized [id number] Closed 01/12/2021 01/12/2022 1 1 Outpatient (Routine) - Closed Specialty Diagnoses / Procedures Referred By Contact Refer red To Contact Family Medicine Merrill Bee P. A.-C. [facility] Region [address] [place] [address] Referral ID Status Reason Start Date Expiration Date Visits Requ ested Visits Authorized [id number] Closed 01/12/2021 01/12/2022 1 1 Reason for Visit Reason Comments Med Management yearly med check. She had an abdominal US that she would like to go over. Outpatient (Routine) - Closed Specialty Diagnoses / Procedures Referred By Contact Refer red To Contact Family Medicine Merrill Bee P. A.-C. [facility] Region [address] [place] [address] Referral ID Status Reason Start Date Expiration Date Visits Requ ested Visits Authorized [id number] Closed 01/04/2020 01/03/2021 1 1 Encounter Details Date Type Department Care Team Description 01/12/2021 Comprehensive Visit Department of Shawna Bee Moderate Or Severe Use Disorder (Dependence) Uncomplicated (HCC) (Primary Dx); Family MedicineMerrill, Edema Leg; [facility] Hypercholesterolemia; in [address] Hypertension Essential Primary; [place], [place] Screening Mammogram Breast C ancer [address] [facility] [address] [place], [place] [phone] (Work) [phone] Social History Tobacco Use Types Packs/Day Years [...] containing 4 or more times a w [place] 10/05/2021 alcohol? How many drinks containing alcohol [...] or relatives? How often do you attend yazidism or 1 to 4 times per year 07/2021 congregation services? Do you belong to any clubs or Yes 10/05/2021 organizations such as yazidism groups, unions, fraternal or athletic groups, or [...] place to sleep or slept in a [place] [facility] [place] (including now)? Education Answer Date Recorded What is the highest level of school Master's degree (e.g., M Gogo, MS, 12/01/2018 you have completed or the highest Faustina, Humphrey, HAIR SPECIALIST, GIORGIO) degree you have received? Sex Assigned at Date Recorded Female 03/07/2018 9:31 AM CDT documented as of this encounter Last Filed Vital Signs Vital Sign Reading Time Taken Comments Blood Pressure 126/56 01/12/2021 9:09 AM CDT Pulse 82 01/12/2021 9:09 AM CDT Temperature 36.4 ??C (97.5 ??F) 01/12/2021 9:05 AM CDT Respiratory Rate 16 01/12/2021 9:05 AM CDT Oxygen Saturation 97% 01/12/2021 9:05 AM CDT Inhaled Oxygen Concentration - - Weight 97.2 kg (214 lb 4.6 oz) 01/12/2021 9:05 AM CDT Height 168 cm (5' 6.14) 01/12/2021 9:05 AM CDT Body Mass Index 34.44 01/12/2021 9:05 AM CDT documented in this encounter H&P Notes Merrill Bee P.A.-C. - 01/12/2021 9:30 AM CDT CHIEF COMPLAINT / REASON FOR VISIT Steph Simmons is a 70 y.o. female who presents for evaluation of Med Management (yearly med check. She had an abdominal US that she would like to go over. ). HISTORY OF PRESENT ILLNESS Steph presents today for her yearly medication review. Overall she is feeling well she recently was evaluated for some lower extremity edema she has been wearing some compression stockings in overall this is getting better she has a fatty liver she drinks a couple alcoholic beverages per day she is trying to cut back on this she is also now exercising more and has lost a little weight hopefully she will be able to continue this. PAST MEDICAL HISTORY: Patient Active Problem List Diagnosis ??? Hypercholesterolemia ??? Neuropathy Peripheral ??? Hypertension Essential Primary ??? Spinal Stenosis Lumbosacral Region ??? Edema Leg ??? Alcohol Moderate Or Severe Use Disorder (Dependence) Uncomplicated (HCC) PAST SURGICAL HISTORY: Past Surgical History: Procedure Laterality Date ??? APPENDECTOMY N/A 11/18/1993 Appendectomy ??? CARPAL TUNNEL RELEASE Right 1980 ??? HYSTERECTOMY 1993 ??? LEFT COLECTOMY N/A 11/18/1993 Resection of descending colon ??? SALPINGO - OOPHORECTOMY SOCIAL HISTORY: Social History Tobacco Use ??? Smoking status: Former Smoker Quit date: 1993 Years since quittin.6 ??? Smokeless tobacco: Never Used Vaping Use ??? Vaping Use: never used Substance Use Topics ??? Alcohol use: Yes Alcohol/week: 16.0 standard drinks Types: 7 Glasses of wine, 7 Cans of beer, 2 Standard drinks or equivalent per week Comment: 2-3 drinks every night (mixed drink or wine) ??? Drug use: Never FAMILY HISTORY: Family History Problem Relation Age of Onset ??? Lung cancer Father ??? Colitis Brother ??? Hypertension Brother MEDICATIONS: Current Outpatient Medications Medication Sig Dispense Refill ??? acetaminophen (TYLENOL) 500 mg tablet Take 650-1,200 mg by mouth 3 (three) times a day as needed. Take 500-1,000 mg by mouth 3 times daily if needed. Max acetaminophen dose: 4000mg in 24 hours. ??? aspirin 325 mg tablet Take 325 mg by mouth once. ??? atorvastatin (Lipitor) 40 mg tablet Take 1 tablet (40 mg total) by mouth at bedtime. 90 tablet 3 ??? B complex-vitamin (for_SUPER [...] No current facility-administered medications for this visit. ALLERGIES: Allergies Allergen Reactions ??? Amoxicillin Diarrhea ??? Levofloxacin Hives ??? Morphine Hives ??? Piroxicam Other (see comments) swollen hands and feet, ankles ??? Pregabalin Other (see comments) fatigue, edema at high dose OBJECTIVE Vitals: 01/12/21 0905 01/12/21 0909 BP: (!) 126/52 126/56 BP Location: Left arm Left arm Patient Position: Sitting Sitting Cuff Size: Large Large Pulse: 86 82 Resp: 16 Temp: 36.4 ??C TempSrc: Temporal SpO2: 97% Weight: 97.2 kg Height: 168 cm Body mass index is 34.44 kg/m??. PHYSICAL EXAMINATION General: Patient appears in no acute distress. ENT: TMs no erythema. Throat no erythema. Neck: No lymphadenopathy. No thyroid masses. Heart: Regular rate and rhythm. No murmurs. Lungs: Clear to auscultation. Abdomen: Soft and nontender to palpation. Breast exam she does have some fibrocystic breasts no suspicious lumps were appreciated on exam IMPRESSION / REPORT / PLAN #1 Alcohol Moderate Or Severe Use Disorder (Dependence) Uncomplicated (HCC) We did talk about cutting back to 1 alcoholic beverage per day.. She does have some fatty liver. We did discuss this she is going to work on her diet and exercise and continue to lose weight. #2 Edema Leg She will continue to wear her compression stockings as needed. This will improve she continues to work on her diet and exercise #3 Hypercholesterolemia Continue on her statin #4 Hypertension Essential Primary Continue on her blood pressure medications this is well controlled #5 Screening Mammogram Breast Cancer She is due for her mammogram we will get this set up. If she has any further questions or problems she will let us know. Total time spent 30 minutes Merrill Bee P.A.-C. documented in this encounter Plan of Treatment Upcoming Encounters Date Type Specialty Care Team Description 03/25/2022 Office Visit Family Medicine Leslie Gonzalez M.D. [address] [place] [phone] (Wo rk) Scheduled Referrals Name Type Priority Associated Diagnoses Order S [facility] Family Medicine Outpatient Referral Routine Expec marc: office visit 01/12/2022 (clinic) (Approximate), Expires: 01/13/2024 documented as of this encounter Results (ABNORMAL) Lipid Panel (01/18/2022 [...] Organization Address City/State/ZIP Code Phon e Number [facility]- [address] [place] [address] [place] [address] System in [place] [address] Comprehensive Metabolic Panel (01/18/2022 8:10 AM CDT) [...] CDT eGFR-Black/Afric 78 >=60 01/18/2022 [place] an Spanish mL/min/BSA 11:56 AM CDT Comment: ----ADDITIONAL INFORMATION---- [...] Organization Address City/State/ZIP Code Phon e Number [facility]- [address] [place] [address] [place] [address] System in [place] [address] BI Breast Screening Bilateral with Tomosynthesis (01/20/2021 [...] TOMOSYNTHESIS Current study was evaluated with a Firetideu ter Aided Detection (CAD) system. INDICATION: ??Screening [...] TOMOSYNTHESIS Current study was evaluated with a Firetideu iBio Aided Detection (CAD) system. INDICATION: Screening mammogram. COMPARISON: Prior exam(s) were available and reviewed for comparison. DENSITY: c. The breast(s) are heterogene ously dense, which may obscure small masses. FINDINGS: No mammographic findings of ma lignancy. IMPRESSION: Negative. RECOMMENDATION: Annual Screening Mammogr am ASSESSMENT: BI-RADS: 1: Negative. Merrill Bee P.A.-C. IMG BI PROCEDURES documented in this encounter Visit Diagnoses Diagnosis Alcohol Moderate Or Severe Use Disorder (Dependence) Uncomplicated (HCC) - Primary Edema Leg Hypercholesterolemia Hypertension Essential Primary Screening Mammogram Breast Cancer Screening Mammogram Breast Cancer documented in this encounter Care Teams Engine Dynamometer Tester Relationship Specialty Start Date End Date Merrill Bee P.A.-C. PCP - General 11/18/16 [address] [place] [phone] documented as of this encounter
--- OUTSIDE RECORDS SUMMARY | 2022-03-22 15:45 | XMS_ITS | Encounter Summary ---
:1950 Author Organization [facility] Address [address] [place] [address] Care Team Providers Name Role Phone Merrill Bee P.A.-C. Primary Care Provider [phone] Reason for Visit Reason Comments Med Refill Encounter Details Date Type Department Care Team Description 07/18/2021 Refill Department of Family Medicine, Merrill Rodriguez P.A.-C. Med Refill [facility], in [address] [place] [phone] [place] [address] [place] [address] [phone] Social History Tobacco Use Types Packs/Day Years Used Date Smoking Tobacco: Former Cigarettes Quit : 1993 Smokeless Tobacco: Never Alcohol Use Standard Drinks/Week Comments Yes 16 (1 standard drink = 0.6 oz pure 2-3 d rinks every night (mixed drink alcohol) or wine) Alcohol Habits Answer Date Recorded How often do you have a drink containing 4 or more times a w [place] 10/05/2021 alcohol? How many drinks containing alcohol [...] 1 to 4 times per year 07/2021 [employer] services? Do you belong to any clubs [...] place to sleep or slept in a snf (including now)? Education Answer Date Recorded What is the highest level of school Master's degree (e.g., M Gogo, MS, 12/01/2018 you have completed or the highest Faustina, MEd, FINAL INSPECTOR MOVEMENT ASSEMBLY, GIORGIO) degree you have received? Sex Assigned at Date Recorded Female 03/07/2018 9:31 AM CDT documented as of this encounter Plan of Treatment Upcoming Encounters Date Type Specialty Care Team Description 03/25/2022 Office Visit Family Medicine Leslie Gonzalez M.D. [address] [place] [phone] (Wo rk) documented as of this encounter Visit Diagnoses Not on filedocumented in this encounter Care Teams Sourcing Specialist Relationship Specialty Start Date End Date Merrill Bee P.A.-C. PCP - General 11/18/[address] [place] [phone] documented as of this encounter
--- OUTSIDE RECORDS SUMMARY | 2022-03-22 15:45 | XMS_ITS | Encounter Summary ---
:1950 Author Organization [facility] Address [address] [place] [address] Care Team Providers Name Role Phone Merrill Bee P.A.-C. Primary Care Provider [phone] Encounter Details Date Type Department Care Team Description 12/15/2020 Clinical Communication Department of [facility] Merrill Bee, [facility], Preet Marte [facility], in [address] [address] [place], [place] [phone] (Work) [phone] Social History Tobacco Use Types Packs/Day Years Used Date Smoking Tobacco: Former Cigarettes Quit : 1993 Smokeless Tobacco: Never Alcohol Use Standard Drinks/Week Comments Yes 16 (1 standard drink = 0.6 oz pure 2-3 d rinks every night (mixed drink alcohol) or wine) Alcohol Habits Answer Date Recorded How often do you have a drink containing 4 or more times a w [place] 10/05/2021 alcohol? How many drinks containing alcohol [...] have completed or the highest Faustina, MEd, CLINICAL REHABILITATION LIAISON, GIORGIO) degree you have received? Sex Assigned at Date Recorded Female 03/07/2018 9:31 AM CDT documented as of this encounter Miscellaneous Notes Telephone Encounter - Fang Mathews L.P.N. - 12/17/2020 10:34 AM CDT SUBJECTIVE CHIEF COMPLAINT / REASON FOR CALL No chief complaint on file. Information Discussed Patient was reached and notified. PLAN Disposition/Recommendation: N/A Information/Education: patient/caller able to teach back Caller agreeable to plan of care: yes The following references were used: provider Dr. Serrato Telephone Encounter - Garfield Serrato M.B.B.S. MPrasanna - 12/16/2020 5:37 PM CDT Ultrasound is to assess her liver. She should still do this test. Telephone Encounter - Skylar Elmore - 12/15/2020 4:17 PM CDT Reason for Communication: Patient is calling in she stated she saw Dr. Serrato today for her leg and he said everything is fine. Patient also stated she is wondering if she should still do the ultrasound. Please call the patient back. Current Can Nursing/Provider leave a detailed message?: yes Did the patient refuse triage through Nurse line? (for symptom based concerns): n/a Action Needed: Please call patient back. Name of Medication (if relevant): n/a Please send any replies to scheduling pool to ensure timely response. documented in this encounter Plan of Treatment Upcoming Encounters Date Type Specialty Care Team Description 03/25/2022 Office Visit Family Medicine Leslie Gonzalez M.D. [address] [place] [phone] (Wo rk) documented as of this encounter Visit Diagnoses Not on filedocumented in this encounter Care Teams Ship Construction Teacher Relationship Specialty Start Date End Date Merrill Bee P.A.-C. PCP - General 11/18/16 [address] [place] [address] documented as of this encounter
--- OUTSIDE RECORDS SUMMARY | 2022-03-22 15:45 | XMS_ITS | Encounter Summary ---
:1950 Author Organization [facility] Address [address] [place] [address] Care Team Providers Name Role Phone Merrill Bee P.A.-C. Primary Care Provider [phone] Encounter Details Date Type Department Care Team Description 04/01/2021 Orders Only [facility] Sa dominique Gray M.D. [address] [place], [place] [phone] (Wo rk) Social History Tobacco Use Types [...] containing 4 or more times a w [place] 10/05/2021 alcohol? How many drinks containing alcohol [...] or relatives? How often do you attend jew or 1 to 4 times per year 07/2021 scientology services? Do you belong to any clubs or Yes 10/05/2021 organizations such as jew groups, unions, fraternal or athletic groups, or [...] place to sleep or slept in a correction (including now)? Education Answer Date Recorded What is the highest level of school Master's degree (e.g., M Gogo, MS, 12/01/2018 you have completed or the highest Faustina, MEd, CEMENTER HAND, GIORGIO) degree you have received? Sex Assigned at Date Recorded Female 03/07/2018 9:31 AM CDT documented as of this encounter Plan of Treatment Upcoming Encounters Date Type Specialty Care Team Description 03/25/2022 Office Visit Family Medicine Leslie Gonzalez M.D. [address] [place] [phone] (Wo rk) documented as of this encounter Visit Diagnoses Not on filedocumented in this encounter Care Teams Tree Trimmer Helper Relationship Specialty Start Date End Date Merrill Bee P.A.-C. PCP - General 11/18/16 [address] [place] [address] documented as of this encounter
--- OUTSIDE RECORDS SUMMARY | 2022-03-22 15:45 | XMS_ITS | Encounter Summary ---
:1950 Author Organization [facility] Address [address] [place] [address] Care Team Providers Name Role Phone Merrill Bee P.A.-C. Primary Care Provider [phone] Reason for Referral Outpatient (Routine) - Closed Specialty Diagnoses / Procedures Referred By Contact Refer red To Contact Diagnoses Gastroesophageal Reflux Disease Lymphadenitis Cervical Merrill Bee P.A.-C. [facility] Region Procedures DX Chest AP or PA and Lateral 2 Views [address] [place] [phone] Referral ID Status Reason Start Date Expiration Date Visits Requ ested Visits Authorized [id number] Closed 10/15/2021 10/15/2022 1 1 Reason for Visit Outpatient (Routine) - Closed Specialty Diagnoses / Procedures Referred By Contact Refer red To Contact Diagnoses Gastroesophageal Reflux Disease Lymphadenitis Cervical Merrill Bee P.A.-C. [facility] Region Procedures DX Chest AP or PA and Lateral 2 Views [address] [place] [address] Referral ID Status Reason Start Date Expiration Date Visits Requ ested Visits Authorized [id number] Closed 10/15/2021 10/15/2022 1 1 Encounter Details Date Type Department Care Team Description 10/15/2021 Hospital Encounter Department of [facility], Gastroes ophageal Reflux Disease; Radiology in [place] Momin P.A.-C. [place] [address] Ramakrishna ERIKA BRIZUELA [phone] Social History Tobacco Use Types Packs/Day [...] or relatives? How often do you attend episcopalian or 1 to 4 times per year 07/2021 nondenominational services? Do you belong to any clubs or Yes 10/05/2021 organizations such as episcopalian groups, unions, fraternal or athletic groups, or [...] have completed or the highest Faustina, MEd, WRAPPER OPENER, GIORGIO) degree you have received? Sex Assigned [...] Office Visit Family Medicine Leslie Gonzalez M.D. [address] [place] [phone] (Wo rk) documented as of this encounter Procedures Procedure Name Priority Date/Time Associated Diagnosis Comme nts DX CHEST AP OR RAD - Routine 10/15/2021 Gastroesophageal Results for PA AND LATERAL 2 (most inpatients 10:35 AM CDT Reflux Disease this procedure VIEWS and all Lymphadenitis Cervical are i n the outpatients) results section. documented in this encounter Results DX Chest AP or PA and Lateral [...] the spine. Compar yulissa with 08/02/2014. Merrill Roethler P.A.-C. IMG DIAGNOSTIC IMAGING PROCE DURMONET documented in this encounter Visit Diagnoses Diagnosis Gastroesophageal Reflux Disease Lymphadenitis Cervical documented in this encounter Care Teams See Supervisor Relationship Specialty Start Date End Date Merrill Bee P.A.-C. PCP - General 11/18/16 [address] [place] [address] documented as of this encounter
--- OUTSIDE RECORDS SUMMARY | 2022-03-22 15:45 | XMS_ITS | Encounter Summary ---
:1950 Author Organization [facility] Address [address] [place] [address] Care Team Providers Name Role Phone Merrill Bee P.A.-C. Primary Care Provider [phone] Reason for Referral Outpatient (Routine) - Closed Specialty Diagnoses / Procedures Referred By Contact Refer red To Contact Pain Medicine [facility] Est[facility], M.S. [address] [place] [phone] Referral ID Status Reason Start Date Expiration Date Visits Requ ested Visits Authorized [id number] Closed 06/03/2021 06/03/2022 1 1 utpatient (Routine) - Closed Specialty Diagnoses / Procedures Referred By Contact Refer red To Contact Diagnoses Pain Low Back Chronic Radiculopathy Lumbar [facility] Procedures FL Lumbar Spine Interlaminar Epidural Injection Estuardo, M.S. [address] [place] [phone] Referral ID Status Reason Start Date Expiration Date Visits Requ ested Visits Authorized [id number] Closed 06/03/2021 06/03/2022 1 1 AL HOSPITAL CLERK Reason for Visit Reason Comments Redo FL lumbar spine interlaminar epi inj Encounter Details Date Type Department Care Team Description 06/03/2021 Clinical Division of Pain Alejandra Egan [facility] spine Communication Medicine in [place] Lynne pi sb Garsia P.A.-C., M.S. [place] 200 [facility] [address] [place] [phone] Social History Tobacco Use Types Packs/Day Years Used Date Smoking Tobacco: Former Cigarettes Quit : 1993 Smokeless Tobacco: Never Alcohol Use Standard Drinks/Week Comments Yes 16 (1 standard drink = 0.6 oz pure 2-3 d rinks every night (mixed drink alcohol) or wine) Alcohol Habits Answer Date Recorded How often do you have a drink containing 4 or more times a w [place] 10/05/2021 alcohol? How many drinks containing [...] level of school Master's degree (e.g., Adrien Bowens MS, 12/01/2018 you have completed or the highest Faustina, MEd, DOORMAKER, GIORGIO) degree you have received? Sex Assigned at Date Recorded Female 03/07/2018 9:31 AM CDT documented as of this encounter Miscellaneous Notes Telephone Encounter - Soco Daugherty L.P.N. - 06/03/2021 1:02 PM ANIMAL HOSPITAL CLERK Spoke with patient. confirmed. Advised that patient should hold aspirin for 6 days prior to procedure per Earnestine. 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 Patient states she will check with PCP about stopping aspirin and call us back if PCP has an issue with this. Patient states in the past, pcp has had patient take a baby aspirin in place of the 325 mg. Soco Daugherty L.P.N. AL HOSPITAL CLERK Telephone Encounter - Soco Daugherty L.P.N. - 06/03/2021 10:47 AM ANIMAL HOSPITAL CLERK Dear Troy, Thank you for the message. We need to record your response the Interlaminar Epidural Injection completed on 10/17/2020. Can you please provide the following information? 1. What is the primary location of your pain? Lower back that radiates through buttock and legs 2. Overall, what percentage improvement in your pain symptoms did you notice following the injection(scale of 0-100%)? 90% 3. Following the injection, how long did your pain relief last (hours, days, weeks, or months)? 8 months Only for those requesting repeat injections Are you currently taking any blood thinning medications including aspirin? Aspirin 325 mg Once we have the answers to these questions the appropriate orders can be placed and our scheduling office will contact you. Thank you for using [facility]. Sincerely, Soco Daugherty L.P.N. AL HOSPITAL CLERK documented in this encounter Plan of Treatment Upcoming Encounters Date Type Specialty Care Team Description 03/25/2022 Office Visit Family Medicine Leslie Gonzalez M.D. [address] [place] [address] [place] [phone] (Wo rk) Scheduled Referrals Name Type Priority Associated Diagnoses Order S [facility] Pain Medicine Outpatient Referral Routine Expecte d: office visit 06/03/2021 (clinic) (Approximate), Expires: 09/01/2022 documented as of this encounter Results FL LUMBAR SPINE INTERLAMINAR EPIDURAL INJECTION (06/11/2021 3:20 PM ANIMAL HOSPITAL CLERK) Specimen (Source) Anatomical Location Collection Method / Collectio n Time Received Time / Laterality Volume Narrative Maxime Mcfadden M.D. - 06/11/2021 3: 09 PM ANIMAL HOSPITAL CLERK Maxime Mcfadden M.D. ? 06/11/2021 ??5:28 PM FL Lumbar Spine Interlaminar Epidural In jection Date/Time: 06/11/2021 3:09 PM Performed by: Maxime Mcfadden M.D. Authorized by: Earnestine Egan PMary -Lisa, M.S. Care team members present 1. Soco Daugherty LGiovanyPGiovanyN. PROCEDURE SUMMARY Indications: Radiculitis Pre-procedural pain: 8/10 [...] Earnestine Egan P.A.-C., M.S. IMG FLUOROSCOPY PROCE KENDRICK documented in this encounter Visit Diagnoses Diagnosis Pain Low Back Chronic - Primary Radiculopathy Lumbar Pain Low Back Chronic Radiculopathy Lumbar documented in this encounter Care Teams Circuit Judge Relationship Specialty Start Date End Date Merrill Bee P.A.-C. PCP - General 11/18/[address] [place] [phone] documented as of this encounter
--- OUTSIDE RECORDS SUMMARY | 2022-03-22 15:45 | XMS_ITS | Encounter Summary ---
:1950 Author Organization [facility] Address [address] [place] [address] Care Team Providers Name Role Phone Merrill eBe P.A.-C. Primary Care Provider [phone] Reason for Visit Reason Comments RADHA Nurse Line Knee Injury Encounter Details Date Type Department Care Team Description 04/06/2021 Nurse Triage Department of [facility], RADHA Carl; [facility], [facility] [phone] [place] (Work) [address] [place] [phone] Social History Tobacco Use Types Packs/Day Years Used Date Smoking Tobacco: Former Cigarettes Quit : 1993 Smokeless Tobacco: Never Alcohol Use Standard Drinks/Week Comments Yes 16 (1 standard drink = 0.6 oz pure 2-3 d rinks every night (mixed drink alcohol) or wine) Alcohol Habits Answer Date Recorded How often do you have a drink containing 4 or more times a w [place] 10/05/2021 alcohol? How many drinks containing alcohol [...] or relatives? How often do you attend restorationism or 1 to 4 times per year 07/2021 druze services? Do you belong to any clubs or Yes 10/05/2021 organizations such as restorationism groups, unions, fraternal or athletic groups, or school groups? How often do you attend meetings of the More than 4 times [facility] year 10/05/2021 clubs or organizations you belong [...] have completed or the highest Faustina, MEd, AMUSEMENT PARK ENTERTAINER, GIORGIO) degree you have received? Sex Assigned at Date Recorded Female 03/07/2018 9:31 AM CDT documented as of this encounter Miscellaneous Notes Telephone Encounter - Soni Culver R.N. - 04/06/2021 9:38 AM CDT Chief Complaint / Reason for Call Patient is a 70 y.o. female calling regarding COVID Nurse Line and Knee Injury. Assessment Concern: She is calling about her right knee pain, rates 7/10. She states she fell a couple of weeksago and the right knee is still slightly swollen and she is limping. Encouraged call back with new, worsening, or persistent symptoms. Present for: 2 weeks Home cares tried: Rest, elevation, ice, aleve, tylenol, pain creame Calling to request: Appointment The recommended disposition is See a health care provider within 24 hours. Caller was warm transferred to Greer at the clinic for further assistance. Reason for Disposition ? ? [1] High-risk adult (e.g., age > 60 years, osteoporosis, chronic steroid use) AND [2] limping Protocols used: KNEE [id number] Care Advice Patient/Caregiver understands and will follow care advice?: Yes, able to teach back SEE PCP WITHIN 24 HOURS: * IF OFFICE WILL BE OPEN: You need to be examined within the next 24 hours. Call your doctor (or SANFORIZER/PA) when the office opens and make an appointment. * IF OFFICE WILL BE CLOSED: You need to be seen within the next 24 hours. A clinic or an urgent carecenter is often a good source of care if your doctor's office is closed or you can't get an appointment. * IF PATIENT HAS NO PCP: Refer patient to a clinic or urgent care center. Also try to help caller find a PCP for future care. CRUTCHES: * Try not to put any weight on the injured leg until evaluated. * Obtain a pair of crutches from the local pharmacy. USE HEAT ON AREA AFTER 48 HOURS: * If pain, swelling, or bruising last more than 48 hours (2 days), then use heat on the area. * Use a heat pack, heating pad, or warm wet washcloth. * Do this for 10 minutes three times a day. * This will help increase blood flow and improve healing. * Caution: burn. Do not sleep on a heating pad. PAIN MEDICINES: * For pain relief, you can take either acetaminophen, ibuprofen, or naproxen. * They are [id number] (OTC) pain drugs. You can buy them at the drugstore. * ACETAMINOPHEN - REGULAR STRENGTH TYLENOL: Take 650 mg (two 325 mg pills) by mouth every 4 to 6 hours as needed. Each Regular Strength Tylenol pill has 325 mg of acetaminophen. The most you should take each day is 3,250 mg (10 pills a day). * ACETAMINOPHEN - EXTRA STRENGTH TYLENOL: Take 1,000 mg (two 500 mg pills) every 8 hours as needed. Each Extra Strength Tylenol pill has 500 mg of acetaminophen. The most you should take each day is 3,000 mg (6 pills a day). * IBUPROFEN (E.G., MOTRIN, ADVIL): Take 400 mg (two 200 mg pills) by mouth every 6 hours. The most you should take each day is 1,200 mg (six 200 mg pills), unless your doctor has told you to take more. * NAPROXEN (E.G., ALEVE): Take 220 mg (one 220 mg pill) by mouth every 8 to 12 hours as needed. You may take 440 mg (two 220 mg pills) for your first dose. The most you should take each day is 660 mg (three 220 mg pills a day), unless your doctor has told you to take more. CALL BACK IF: * Pain becomes severe * You become worse. documented in this encounter Plan of Treatment Upcoming Encounters Date Type Specialty Care Team Description 03/25/2022 Office Visit Family Medicine Leslie Gonzalez M.D. [address] [place] [phone] (Wo rk) documented as of this encounter Visit Diagnoses Not on filedocumented in this encounter Care Teams Filter Press Supervisor Relationship Specialty Start Date End Date Merrill Bee P.A.-C. PCP - General 11/18/16 [address] [place] [address] documented as of this encounter
--- OUTSIDE RECORDS SUMMARY | 2022-03-22 15:45 | XMS_ITS | Encounter Summary ---
:1950 Author Organization [facility] Address [address] [place] [address] Care Team Providers Name Role Phone Merrill Bee P.A.-C. Primary Care Provider [phone] Reason for Visit Reason Comments Results Encounter Details Date Type Department Care Team Description 04/06/2021 Clinical Communication Department of [facility], [facility], [facility] Medicine, [place] [facility], in [place], [address], [place] [address] [facility] [place] [address] [place], [place] [phone] (Work) [phone] Social History Tobacco Use Types Packs/Day Years Used Date Smoking Tobacco: Former Cigarettes Quit : 1993 Smokeless Tobacco: Never Alcohol Use Standard Drinks/Week Comments Yes 16 (1 standard drink = 0.6 oz pure 2-3 d rinks every night (mixed drink alcohol) or wine) Alcohol Habits Answer Date Recorded How often do you have a drink containing 4 or more times a w [place] 10/05/2021 alcohol? How many drinks containing alcohol [...] or relatives? How often do you attend sabianism or 1 to 4 times per year 07/2021 shinto services? Do you belong to any clubs or Yes 10/05/2021 organizations such as sabianism groups, unions, fraternal or athletic groups, or [...] place to sleep or slept in a longterm (including now)? Education Answer Date Recorded What is the highest level of school Master's degree (e.g., M Gogo, MS, 12/01/2018 you have completed or the highest Faustina, MEd, STEEL LOADER, GIORGIO) degree you have received? Sex Assigned at Date Recorded Female 03/07/2018 9:31 AM CDT documented as of this encounter Miscellaneous Notes Telephone Encounter - Maritza Cruz L.P.NGiovany - 04/07/2021 8:38 AM CDT SUBJECTIVE CHIEF COMPLAINT / REASON FOR CALL Results Information Discussed Patient notified of results and recommendations as listed below by RAJENDRA Rueda PLAN Disposition/Recommendation: Continue with rest, ice, elevation, and compression, tylenol and ibuprofen Information/Education: patient/caller able to teach back Caller agreeable to plan of care: yes The following references were used: provider RAJENDRA Rueda Telephone Encounter - Agustina Hussein [facility] - 04/06/2021 4:29 PM CDT Images from the original note were not included. Left message for patient to return call to clinic. Does the patient need to speak to nursing? yes Action needed: inform the patient of the following Diana Naryaan P.A.-C. 04/06/2021 ??4:20 PM CDT Back to Top Please let patient know that x-rays negative for fracture. ??Recommend continuing with rest, ice, elevation and compression. ??May continue to alternate ibuprofen and Tylenol as needed for pain. ??If symptoms continue to persist over the next 2-3 weeks recommend follow-up imaging with MRI. documented in this encounter Plan of Treatment Upcoming Encounters Date Type Specialty Care Team Description 03/25/2022 Office Visit Family Medicine Leslie Gonzalez M.D. [address] [place] [phone] (Wo rk) documented as of this encounter Visit Diagnoses Not on filedocumented in this encounter Care Teams Activities Attendant Relationship Specialty Start Date End Date Merrill Bee P.A.-C. PCP - General 11/18/16 [address] [place] [phone] documented as of this encounter
--- OUTSIDE RECORDS SUMMARY | 2022-03-22 15:45 | XMS_ITS | Encounter Summary ---
:1950 Author Organization [facility] Address [address] [place] [address] Care Team Providers Name Role Phone Merrill Bee P.A.-C. Primary Care Provider [phone] Encounter Details Date Type Department Care Team Description 01/05/2021 Hospital Encounter Department of Cielo Bee Diabetes Mellitus; Laboratory Medicine Waldo Momin Encounter For Screening For Cardiovascul ar Disorders in [address] [facility] [place] [address] [place], [place] [phone] (Work) [phone] Social History Tobacco Use Types Packs/Day Years Used Date Smoking Tobacco: Former Cigarettes Quit : 1993 Smokeless Tobacco: Never Alcohol Use Standard Drinks/Week Comments Yes 16 (1 standard drink = 0.6 oz pure 2-3 d rinks every night (mixed drink alcohol) or wine) Alcohol Habits Answer Date Recorded How often do you have a drink containing 4 or more times a w [place] 10/05/2021 alcohol? How many drinks containing alcohol [...] have completed or the highest Faustina, MEd, NETBACKUP ADMIN, GIORGIO) degree you have received? Sex Assigned [...] mg tablet total) by mouth at bedtime. clobetasoL (TEMOVATE) Apply 1 application 30 g 0 08/2001/12/2021 0.05 % cream topically 2 (two) times a day. DULoxetine (CYMBALTA) Take 2 capsules (120 180 capsule 3 01/12/[address] capsule mg total) by mouth daily. lisinopriL Take 1 tablet (20 mg 90 tablet 3 07/14/2020 08/0 02/2021 (PRINIVIL,ZESTRIL) 20 total) by mouth mg tablet daily. meclizine (ANTIVERT) TAKE 1 TABLET BY 270 tablet 3 1 01/12/2021 25 mg tablet MOUTH THREE TIMES DAILY NEEDED FOR DIZZINESS documented as of this encounter Plan of Treatment Upcoming Encounters Date Type Specialty Care Team Description 03/25/2022 Office Visit Family Medicine Leslie Gonzalez M.D. [address] [place] [address] [phone] (Wo rk) documented as of this encounter Procedures Procedure Name Priority Date/Time Associated Diagnosis Comme nts LIPID PANEL, S Routine 01/05/2021 9:00 AM Screening Examinatio n Results for this CDT Diabetes Mellitu s procedure are in Encounter For Screening the results For Cardiovascular section. Disorders BASIC METABOLIC Routine 01/05/2021 9:00 AM Screening Examinati on Results for this PANEL, S/P CDT Diabetes Mellitu s procedure are in Encounter For Screening the results For Cardiovascular section. Disorders documented in this encounter Results (ABNORMAL) Lipid Panel (01/05/2021 9:00 AM CDT) athologist Signature Cholesterol, 204 (H) mg/dL 01/05/2021 OW[facility] Total 11:41 AM CDT Comment: ----REFERENCE VALUE---- Desirable: < 200 Borderline high: 200 - 239 High: > or = 240 Triglycerides 259 (H) mg/dL 01/05/2021 11:41 AM CDT OW AT Comment: ----REFERENCE VALUE---- Normal: <150 Borderline high: 150-199 High: 200-499 Very high: > or =500 Cholesterol, HDL 63 >=50 mg/dL 01/05/2021 11:41 AM CD T OW[facility] Calculated LDL 89 mg/dL 01/05/2021 11:41 AM CDT O ROGERIO Comment: ----REFERENCE VALUE---- Desirable: <100 Above Desirable: 100-129 Borderline high: 130-159 High: 160-189 Very high: > or =190 Cholesterol, Non-HDL, Calculated 141 mg/dL 021 11:41 AM CDT OWAT Comment: ----REFERENCE VALUE---- Desirable: <130 Above Desirable: 130-159 Borderline high: 160-189 High: 190-219 Very high: > or =220 Specimen Anatomical Collection Method Collection Time Receive d Time (Source) Location / / Volume Laterality Blood (Blood, 01/05/2021 9:00 AM 01/06/20 21 Venous) CDT 10:35 AM CDT Merrill Bee P.A.-C. LAB BLOOD ADD-ON Performing Organization Address City/State/ZIP Code Phon e Number [facility]- [address] [place] [address] [place] [address] System in [place] [address] Basic Metabolic Panel (01/05/2021 9:00 AM CDT) athologist Signature Potassium, P 5.1 3.6 - 5.2 01/05/2021 [facility] mmol/L 11:13 AM CDT Sodium, P 140 135 - 145 01/05/2021 [facility] mmol/L 11:13 AM CDT Chloride, P 101 98 - 107 01/05/2021 [facility] mmol/L 11:13 AM CDT Bicarbonate, P 28 22 - 29 01/05/2021 [facility] mmol/L 11:13 AM CDT Anion Gap, P 11 7 - 15 01/05/2021 [facility] 11:13 AM CDT BUN (Blood Urea 14 6 - 21 01/05/2021 OW[place] Nitrogen), P mg/dL 11:13 AM CDT Creatinine 0.89 0.59 - 01/05/2021 [facility] 1.04 mg/dL 11:41 AM CDT eGFR-Black/Afric 75 >=60 01/05/2021 [facility] an [place] mL/min/BSA 11:41 AM CDT Comment: ----ADDITIONAL INFORMATION---- Estimated GFR calculated using the 2009 CKD_EPI creatinine equation. eGFR Non-Black/ 65 >=60 mL/min/BSA 01/05/2021 11:41 AM CDT [facility] Comment: ----ADDITIONAL INFORMATION---- Estimated GFR calculated using the 2009 CKD_EPI creatinine equation. Calcium, Total, P 10.2 8.8 - 10.2 mg/dL 01/05/2021 11:1 3 AM CDT [facility] Glucose, P 130 70 - 140 mg/dL 01/05/2021 11:41 AM CDT OW[facility] Specimen Anatomical Collection Method Collection Time Receive d Time (Source) Location / / Volume Laterality Blood (Blood, 01/05/2021 9:00 AM 01/06/20 21 Venous) CDT 10:35 AM CDT Merrill Bee P.A.-C. LAB BLOOD ADD-ON Performing Organization Address City/State/ZIP Code Phon e Number [facility]- [address] [place] [address] [place] [address] System in [place] [address] documented in this encounter Visit Diagnoses Diagnosis Screening Examination Diabetes Mellitus Encounter For Screening For Cardiovascul ar Disorders documented in this encounter Care Teams Manufacturing Technology Analyst Relationship Specialty Start Date End Date Merrill Bee P.A.-C. PCP - General 11/18/[address] [place] [address] [phone] documented as of this encounter
--- OUTSIDE RECORDS SUMMARY | 2022-03-22 15:45 | XMS_ITS | Encounter Summary ---
:1950 Author Organization [facility] Address [address] [place] [address] Care Team Providers Name Role Phone Merrill Bee P.A.-C. Primary Care Provider [phone] Encounter Details Date Type Department Care Team Description 04/06/2021 Hospital Encounter Department of Diana Narayan, Pain Knee Right Radiology in [place], [place] [address] [address] [phone] Social History Tobacco Use Types Packs/Day Years Used Date Smoking Tobacco: Former Cigarettes Quit : 1993 Smokeless Tobacco: Never Alcohol Use Standard Drinks/Week Comments Yes 16 (1 standard drink = 0.6 oz pure 2-3 d rinks every night (mixed drink alcohol) or wine) Alcohol Habits Answer Date Recorded How often do you have a drink containing 4 or more times a w [place] 10/05/2021 alcohol? How many drinks containing alcohol [...] or relatives? How often do you attend jewish or 1 to 4 times per year 07/2021 mormon services? Do you belong to any clubs or Yes 10/05/2021 organizations such as jewish groups, unions, fraternal or athletic groups, or [...] have completed or the highest Faustina, MEd, DIRECTOR OF MANUFACTURING, GIORGIO) degree you have received? Sex Assigned [...] Office Visit Family Medicine Leslie Gonzalez M.D. [address] [place] [address] [phone] (Wo rk) documented as of this encounter Procedures Procedure Name Priority Date/Time Associated Comments Diagnosis DX KNEE RIGHT 4+ RAD - Routine 04/06/2021 12:37 Pain Knee Right Res ults for this VIEWS (most inpatients PM CDT procedure a re in and all the results outpatients) section. documented in this encounter Results DX Knee Right 4+ Views (04/06/2021 12:37 PM CDT) Anatomical Region Laterality Modality Lower Extremity, Knee, Musculoskeletal RST LOS, Right Digital Radiography Musculoskeletal ARZ LOS, Muskuloskeletal FLA LOS Specimen (Source) Anatomical Collection Method Collection Time Re ceived Time Location / / Volume Laterality 04/06/2021 1:12 PM CDT Impressions 04/06/2021 1:15 PM CDT Mild osteoarthritis in the right knee appears most marked medially. No fractures are seen. If internal deran gement is suspected clinically, an MR examination may be helpful in further ev aluation. Narrative 04/06/2021 1:15 PM CDT EXAM: DX KNEE RIGHT 4+ VIEWS COMPARISON: 02/10/2017, 03/16/2016 FINDINGS: No acute fracture is identifie d. Mineralization and alignment are within normal limits. There is mild oste oarthritis which appears most marked medially. Procedure Note Shorty Dixon M.D. - 04/06/2021Format ting of this note might be different from the original. EXAM: DX KNEE RIGHT 4+ VIEWS COMPARISON: 02/10/2017, 03/16/2016 FINDINGS: No acute fracture is identifie d. Mineralization and alignment are within normal limits. There is mild oste oarthritis which appears most marked medially. IMPRESSION: Mild osteoarthritis in the right knee ap pears most marked medially. No fractures are seen. If internal deran gement is suspected clinically, an MR examination may be helpful in further ev aluation. Diana Narayan P.A.-C. [facility] documented in this encounter Visit Diagnoses Diagnosis Pain Knee Right documented in this encounter Care Teams Sizing Machine Tender Relationship Specialty Start Date End Date Merrill Bee P.A.-C. PCP - General 11/18/[address] [place] [phone] documented as of this encounter
--- OUTSIDE RECORDS SUMMARY | 2022-03-22 15:45 | XMS_ITS | Encounter Summary ---
:1950 Author Organization [facility] Address [address] [place] [address] Care Team Providers Name Role Phone Merrill Bee P.A.-C. Primary Care Provider [phone] Encounter Details Date Type Department Care Team Description 10/15/2021 Hospital Encounter Department of Marsha Bee ophageal Reflux Disease; Laboratory Merrill, Lymphadenitis C ervical; Medicine in P.A.-C. Alcohol Moderate Or Severe Use Disorder (Dependence) Uncomplicated (HCC) [place], [address] [facility] [place], [place] [address] [address] [place], [place] [phone] (Work) [phone] Social History Tobacco Use Types Packs/Day Years [...] have completed or the highest Faustina, MEd, CONTRACT ADMINISTRATOR, GIORGIO) degree you have received? Sex Assigned [...] Visit Family Medicine Leslie Gonzalez M.D. [address] [place] [address] [phone] (Wo rk) documented as of this encounter Procedures Procedure Name Priority Date/Time Associated Diagnosis Comme nts CBC WITH Routine 10/15/2021 10:44 Gastroesophageal Reflux Results for this DIFFERENTIAL, B AM CDT Disease procedure are in Lymphadenitis Cervical the r esults section. C-REACTIVE PROTEIN Routine 10/15/2021 10:44 Gastroesophageal R eflux Results for this (CRP), S/P AM CDT Disease procedure are in Lymphadenitis Cervical the r esults section. COMPREHENSIVE Routine 10/15/2021 10:44 Alcohol Moderate Or Res ults for this METABOLIC PANEL, S/P AM CDT Severe Use Disorder procedure are in (Dependence) the results Uncomplicated (H CC) section. Gastroesophageal Reflux Disease documented in this encounter Results (ABNORMAL) Comprehensive Metabolic Panel (10/15/2021 10:44 AM [...] CDT eGFR-Black/Afri 61 >=60 10/15/2021 [facility] can [place] mL/min/BSA 2:13 PM CDT Comment: ----ADDITIONAL INFORMATION---- Estimated GFR calculated using the 2009 CKD_EPI creatinine equation. eGFR Non-Black/ 53 (L) >=60 mL/min/BSA 10/15/2021 2:13 PM CDT [facility] [place] Comment: ----ADDITIONAL INFORMATION---- Estimated GFR calculated using [...] Organization Address City/State/ZIP Code Phon e Number [facility]- [address] [place] [address] [place] [address] System in [place] [address] CRP (C-Reactive Protein) (10/15/2021 10:44 AM CDT) P athologist Signature C-Reactive 3.6 <=8.0 mg/L 10/15/2021 [facility] Protein (CRP), 2:13 PM CDT P Specimen Anatomical Collection Method Collection Time Receive d Time (Source) Location / / Volume Laterality Blood (Blood, 10/15/2021 10:44 10/15/2021 Venous) AM CDT 12:51 PM CDT Merrill Bee P.A.-C. LAB BLOOD ADD-ON Performing Organization Address City/State/ZIP Code Phon e Number [facility]- [address] [place] [address] [place] [address] System in [place] [address] (ABNORMAL) CBC with Differential, Blood (10/15/2021 10:44 AM CDT) Patholo gist Method Time Signature Hemoglobin 12.8 11.6 [...] Organization Address City/State/ZIP Code Phon e Number [place] [address] [place] [address] [facility] [address] [place] [address] [address] documented in this encounter Visit Diagnoses Diagnosis Gastroesophageal Reflux Disease Lymphadenitis Cervical Alcohol Moderate Or Severe Use Disorder (Dependence) Uncomplicated (HCC) documented in this encounter Care Teams Railroad Repairer Relationship Specialty Start Date End Date Merrill Bee P.A.-C. PCP - General 11/18/[address] [place] [phone] documented as of this encounter
--- OUTSIDE RECORDS SUMMARY | 2022-03-22 15:45 | XMS_ITS | Encounter Summary ---
:1950 Author Organization [facility] Address [address] [place] [address] Care Team Providers Name Role Phone Merrill Bee P.A.-C. Primary Care Provider [phone] Reason for Visit Reason Comments Fall fell on March 19 - has b een having right knee pain since, has been icing, heating, using Aleeve and Ty lenol with little relief Appointment Request (Routine) - Closed Specialty Diagnoses / Procedures Referred By Contact Refer red To Contact Family Medicine Referral ID Status Reason Start Date Expiration Date Visits Requ ested Visits Authorized [id number] Closed 04/06/2021 04/06/2022 1 1 Encounter Details Date Type Department Care Team Description 04/06/2021 Office Visit Department of Family Diana Narayan, Pain Knee Right Medicine, Preet Marte (Primary Dx) Clinic, in [place], [address] [address] [place], [place] [phone] (Work) [phone] Social History Tobacco Use Types Packs/Day Years Used Date Smoking Tobacco: Former Cigarettes Quit : 1993 Smokeless Tobacco: Never Alcohol Use Standard Drinks/Week Comments Yes 16 (1 standard drink = 0.6 oz pure 2-3 d rinks every night (mixed drink alcohol) or wine) Alcohol Habits Answer Date Recorded How often do you have a drink containing 4 or more times a w [place] 10/05/2021 alcohol? How many drinks containing alcohol [...] or relatives? How often do you attend episcopal or 1 to 4 times per year 07/2021 voodoo services? Do you belong to any clubs or Yes 10/05/2021 organizations such as episcopal groups, unions, fraternal or athletic groups, or [...] of school Master's degree (e.g., Adrien Bowens, , 12/01/2018 you have completed or the highest Faustina, MEd, TIER OVER, GIORGIO) degree you have received? Sex Assigned at Date Recorded Female 03/07/2018 9:31 AM CDT documented as of this encounter Last Filed Vital Signs Vital Sign Reading Time Taken Comments Blood Pressure 138/81 04/06/2021 11:46 AM CDT Pulse 83 04/06/2021 11:46 AM CDT Temperature 36.3 ??C (97.3 ??F) 04/06/2021 11:46 AM CDT Respiratory Rate 16 04/06/2021 11:46 AM CDT Oxygen Saturation - - Inhaled Oxygen Concentration - - Weight 94.5 kg (208 lb 5.4 oz) 04/06/2021 11:46 AM CDT Height 168 cm (5' 6.14) 04/06/2021 11:46 AM CDT Body Mass Index 33.48 04/06/2021 11:46 AM CDT documented in this encounter Patient Instructions Patient InstructionsDiana Narayan P.A.-C. - 04/06/2021 12:00 PM CDT Voltaren gel for knee pain documented in this encounter Progress Notes Diana Narayan P.A.-C. - 04/06/2021 12:00 PM CDT SUBJECTIVE CHIEF COMPLAINT/REASON FOR VISIT Chief Complaint Patient presents with ??? Fall fell on March 19 - has been having right knee pain since, has been icing, heating, using Aleeveand Tylenol with little relief HISTORY OF PRESENT ILLNESS Steph Simmons is a pleasant 70 y.o. female who presents to the clinic today for evaluation of right knee pain. Patient was walking out of her friend's house 03/19 with some things in her arms and did not realizethere was a step down. She fell directly on both of her knees. Patient reports pain in left knee hasresolved. She has continued to have pain in her right knee which is exacerbated by walking. It is hard to find a comfortable position to sleep due to pain. Patient feels symptoms have remained about the same since fall. She denies weakness or instability in her right knee. She has been taking 2 extra-strength Tylenol 3 times daily and 2 Aleve in the morning and at bedtime. Patient has also been usingice/heat. REVIEW OF SYSTEMS Pertinent positive ROS are listed above in HPI. Patient Active Problem List Diagnosis ??? Hypercholesterolemia ??? Neuropathy Peripheral ??? Hypertension Essential Primary ??? Spinal Stenosis Lumbosacral Region ??? Edema Leg ??? Alcohol Moderate Or Severe Use Disorder (Dependence) Uncomplicated (HCC) ALLERGIES/CONTRAINDICATIONS Allergies Allergen Reactions ??? Amoxicillin Diarrhea ??? Levofloxacin Hives ??? Morphine Hives ??? Piroxicam Other (see comments) swollen hands and feet, ankles ??? Pregabalin Other (see comments) fatigue, edema at high dose CURRENT MEDICATIONS Current Outpatient Medications: ??? acetaminophen (TYLENOL) 500 mg tablet, Take 650-1,200 mg by mouth 3 (three) times a day as needed. Take 500-1,000 mg by mouth 3 times daily if needed. Max acetaminophen dose: 4000mg in 24 hours. , Disp: , Rfl: ??? aspirin 325 mg tablet, Take 325 mg by mouth once., Disp: , Rfl: ??? atorvastatin (LIPITOR) 40 mg tablet, TAKE 1 TABLET BY MOUTH AT BEDTIME, Disp: 90 tablet, Rfl: 3 ??? B complex-vitamin (for_SUPER B-50) capsule, Take 1 capsule by mouth daily., Disp: , Rfl: ??? CALCIUM CARBONATE/VITAMIN D3 (CALCIUM 600 WITH VITAMIN D3 ORAL), Take by mouth 2 (two) times a day., Disp: , Rfl: ??? cholecalciferol, vitamin D3, 25 mcg (1,000 Unit) tablet, Take 1,000 Units by mouth daily., Disp:, Rfl: ??? DOCOSAHEXANOIC ACID/EPA (FISH OIL ORAL), omega-3 polyunsaturated fatty acids 500 mg oral capsuleSee Instructions, 2 cap(s) PO 2xDay, Disp: , Rfl: ??? DULoxetine (CYMBALTA) [address] capsule, Take 2 capsules (120 mg total) by mouth daily., Disp: 180 capsule, Rfl: 3 ??? esomeprazole (NexIUM) [address] capsule, Take 20 mg by mouth daily., Disp: , Rfl: ??? GLUCOSAMINE/CHONDROITIN SULF A (GLUCOSAMINE-CHONDROITIN ORAL), daily., Disp: , Rfl: ??? latanoprost (for_XALATAN) 0.005 % ophthalmic solution, Administer 1 drop into both eyes at bedtime., Disp: , Rfl: ??? lisinopriL (PRINIVIL,ZESTRIL) 20 mg tablet, Take 1 tablet (20 mg total) by mouth daily., Disp: 90 tablet, Rfl: 3 ??? magnesium oxide (MAG-OX) 400 mg (241.3 mg magnesium) tablet, Take 400 mg by mouth daily., Disp: , Rfl: ??? meclizine (ANTIVERT) 25 mg tablet, Take 1 tablet (25 mg total) by mouth 3 (three) times a day asneeded for dizziness., Disp: 90 tablet, Rfl: 3 ??? multivitamin (THERAGRAN) tablet, Take 1 tablet by mouth daily., Disp: , Rfl: ??? polyethylene glycol (MIRALAX) 17 gram/dose oral powder, Take 17 g by mouth daily. Measure 17g inthe cap provided and dissolve completely in 8 ounces of liquid as directed and drink once a day, Disp: , Rfl: ??? TURMERIC ORAL, Take 1 capsule by mouth daily., Disp: , Rfl: ??? VIT C/VIT E/LUTEIN/MIN/OMEGA-3 (OCUVITE ORAL), Take 1 tablet by mouth daily., Disp: , Rfl: OBJECTIVE VITAL SIGNS Vitals: 04/06/21 1146 BP: 138/81 Pulse: 83 Resp: 16 Temp: 36.3 ??C PHYSICAL EXAMINATION General: Well-nourished, well-developed 70 y.o. in no apparent distress. Awake, alert, age appropriate. Musculoskeletal: Pain with palpation proximal tibia/below distal medial aspect of patella. There is no joint line tenderness. No pain with palpation not pes anserine bursa. Anterior posterior drawer negative. Valgus stress test elicits pain. Varus stress is negative. Cyrus sign negative. ASSESSMENT / PLAN IMPRESSION/REPORT/PLAN: #1 Pain Knee Right -With continued pain recommend obtaining x-ray of right knee to rule out fracture. Recommend alternating ibuprofen and Tylenol for pain management. Ibuprofen should be taken with food. Recommend application of Voltaren gel. Patient should continue to use ice/heat as needed for pain. Recommend elevating knee when possible. Discussed if XR is negative recommend above measures for additional 2-3 weeks. If symptoms are not improving recommend follow-up with MRI of knee. -DX Knee Right 3+ Views All questions have been answered. Patient demonstrated understanding and verbalized agreement with the plan. Total time spent is 25 minutes. Diana Narayan P.A.-C. documented in this encounter Plan of Treatment Upcoming Encounters Date Type Specialty Care Team Description 03/25/2022 Office Visit Family Medicine Leslie Gonzalez M.D. [address] [place] [address] [phone] (Wo rk) documented as of this encounter Visit Diagnoses Diagnosis Pain Knee Right - Primary documented in this encounter Care Teams Radioisotope Technician Relationship Specialty Start Date End Date Merrill Bee P.A.-C. PCP - General 11/18/[address] [place] [phone] documented as of this encounter
--- OUTSIDE RECORDS SUMMARY | 2022-03-22 15:45 | XMS_ITS | Encounter Summary ---
:1950 Author Organization [facility] Address [address] [place] [address] Care Team Providers Name Role Phone Merrill Bee P.A.-C. Primary Care Provider [phone] Reason for Referral Outpatient (Routine) - Closed Specialty Diagnoses / Procedures Referred By Contact Refer red To Contact Diagnoses Edema Leg Alcohol Moderate Or Severe Use Disorder (Dependence) Uncomplicated (HCC) Garfield Serrato [facility] [place] [facility] Procedures US Abdomen Complete EugeniaBGiovanyBTammy Herrera [address] [place] [address] Referral ID Status Reason Start Date Expiration Date Visits Requ ested Visits Authorized [id number] Closed 12/10/2020 12/10/2021 1 1 Reason for Visit Outpatient (Routine) - Closed Specialty Diagnoses / Procedures Referred By Contact Refer red To Contact Diagnoses Edema Leg Alcohol Moderate Or Severe Use Disorder (Dependence) Uncomplicated (HCC) Garfield Serrato [facility] [place] [facility] Procedures US Abdomen Complete Adrien.BGiovanyBTammy Herrera [address] [place] [address] Referral ID Status Reason Start Date Expiration Date Visits Requ ested Visits Authorized [id number] Closed 12/10/2020 12/10/2021 1 1 Encounter Details Date Type Department Care Team Description 01/08/2021 Hospital Encounter Department of Ama Edema Le g; Radiology in [place]., Alcohol Moderat e Or Severe Use Disorder (Dependence) Uncomplicated (HCC) John [place] M.D. [place] [address] [facility] [address] [facility] [place] [phone] Social History Tobacco Use Types Packs/Day Years [...] or relatives? How often do you attend anabaptist or 1 to 4 times per year 07/2021 baptism services? Do you belong to any clubs or Yes 10/05/2021 organizations such as anabaptist groups, unions, fraternal or athletic groups, or [...] have completed or the highest Faustina, MEd, FOOD SAFETY SCIENTIST, GIORGIO) degree you have received? Sex Assigned [...] tablet (20 mg 90 tablet 3 07/14/2020 08/02/2021 (PRINIVIL,ZESTRIL) 20 total) by mouth mg tablet daily. meclizine (ANTIVERT) TAKE 1 TABLET BY 270 tablet 3 01/12/2021 25 mg tablet MOUTH THREE TIMES DAILY NEEDED FOR DIZZINESS documented as of this encounter Miscellaneous Notes Result Encounter Note - Garfield Serrato M.B.B.S., M.D. - 01/09/2021 8:38 AM CDT Results indicate reversible liver disease. A fatty liver is associated with weight gain. Regular exercise and healthy diet will help reverse this trend. There is no evidence of gallbladder disease. documented in this encounter Plan of Treatment Upcoming Encounters Date Type Specialty Care Team Description 03/25/2022 Office Visit Family Medicine Leslie Gonzalez M.D. [address] [place] [phone] (Wo rk) documented as of this encounter Procedures Procedure Name Priority Date/Time Associated Diagnosis Comme nts US ABDOMEN RAD - Routine 01/08/2021 2:48 Edema Leg Results for this COMPLETE (most inpatients PM CDT Alcohol Moderate Or proc edure are in and all Severe Use Disorder the resu lts outpatients) (Dependence) section. Uncomplicated (HCC) documented in this encounter Results US Abdomen Complete (01/08/2021 2:48 PM CDT) Anatomical Region Laterality Modality Abdomen, Ultrasound RST LOS, Ultrasound ARZ LOS, Ultrasound FLA N/A Ultrasound LOS Specimen (Source) Anatomical Collection Method Collection Time Re ceived Time Location / / Volume Laterality 01/08/2021 3:01 PM CDT Impressions 01/08/2021 3:06 PM CDT Fatty liver. Narrative 01/08/2021 3:06 PM CDT EXAM: US ABDOMEN COMPLETE COMPARISON: None. FINDINGS: Proximal and distal AP dimensi ons of the abdominal aorta are 2.3 and 1.8 cm respectively. Spleen length is 9. 2 cm. Right and left renal lengths are 9.3 and 10.3 cm. Common hepatic duct has a diameter of 2.8 mm. Fatty liver. 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 Normal gallbladder with negative Avina sign. Intrahepatic and common hep atic ducts are normal with the common bile duct obscured. No pancreatic abnorm ality but views limited due to overlying gas. Kidneys without stone, mass, or hyd ronephrosis. Procedure Note Kris Fink M.D. - 01/08/2021Forma tting of this note might be different from the original. EXAM: US ABDOMEN COMPLETE COMPARISON: None. FINDINGS: Proximal and distal AP dimensi ons of the abdominal aorta are 2.3 and 1.8 cm respectively. Spleen length is 9. 2 cm. Right and left renal lengths are 9.3 and 10.3 cm. Common hepatic duct has a diameter of 2.8 mm. Fatty liver. 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 Normal gallbladder with negative Avina sign. Intrahepatic and common hep atic ducts are normal with the common bile duct obscured. No pancreatic abnorm ality but views limited due to overlying gas. Kidneys without stone, mass, or hyd ronephrosis. IMPRESSION: Fatty liver. Garfield Lopez M.D. IMG US PROCEDURES documented in this encounter Visit Diagnoses Diagnosis Edema Leg Alcohol Moderate Or Severe Use Disorder (Dependence) Uncomplicated (HCC) documented in this encounter Care Teams Process Worker Relationship Specialty Start Date End Date Merrill Bee P.A.-C. PCP - General 11/18/[address] [place] [phone] documented as of this encounter
--- OUTSIDE RECORDS SUMMARY | 2022-03-22 15:46 | XMS_ITS | Encounter Summary ---
:1950 Author Organization [facility] Address [address] [place] [address] Care Team Providers Name Role Phone Merrill Bee P.A.-C. Primary Care Provider [phone] Reason for Visit Reason Comments COVID Inquiry Encounter Details Date Type Department Care Team Description 11/12/2020 Clinical Communication Department of Walt Landrum Orthopedic Surgery in [place], [place] [address] [place] [phone] Social History Tobacco Use Types Packs/Day Years Used Date Smoking Tobacco: Former Cigarettes Quit : 1993 Smokeless Tobacco: Never Alcohol Use Standard Drinks/Week Comments Yes 16 (1 standard drink = 0.6 oz pure alcoh ol) Alcohol Habits Answer Date Recorded How often do you have a drink containing 4 or more times a w osage 10/05/2021 alcohol? How many drinks containing alcohol [...] or relatives? How often do you attend confucianist or 1 to 4 times per year 07/2021 evangelical services? Do you belong to any clubs or Yes 10/05/2021 organizations such as confucianist groups, unions, fraternal or athletic groups, or school groups? How often do you attend meetings of the More than 4 times [facility] year 10/05/2021 clubs or organizations [...] have completed or the highest Faustina, MEd, ACCELERATOR TECHNICIAN, GIORGIO) degree you have received? Sex Assigned at Date Recorded Female 03/07/2018 9:31 AM CDT documented as of this encounter Miscellaneous Notes Telephone Encounter - Lashonda Edward - 11/12/2020 1:13 PM CDT What is the purpose of the call?: Standard Appointment Process Standard Appointment Process Have you tested positive for COVID-19 in the last 20 days OR do you have a pending COVID-19 test because you had symptoms?: No, neither apply What region is the appointment being requested?: Less than 14 days [place] In the past 14 days are any of the following symptoms new to you and not related to an existing health condition?: No symptoms noted In the past 14 days have you had close contact* with a person who has a LABORATORY CONFIRMED case ofCOVID-19?: No exposure noted, follow appt process (End Screening) Testing Recommendation Endpoint Is testing recommended? : Not recommended to test Plan: Endpoint recommendation: Followed regional OTG *Reminder if sending patient for testing in [facility] or [facility], route encounter to the correct testing pool. documented in this encounter Plan of Treatment Upcoming Encounters Date Type Specialty Care Team Description 03/25/2022 Office Visit Family Medicine Leslie Gonzalez M.D. [address] [place] [address] [place] [phone] (Wo rk) documented as of this encounter Visit Diagnoses Not on filedocumented in this encounter Care Teams Harvest Crew Supervisor Relationship Specialty Start Date End Date Merrill Bee P.A.-C. PCP - General 11/18/[address] [place] [phone] documented as of this encounter
--- OUTSIDE RECORDS SUMMARY | 2022-03-22 15:46 | XMS_ITS | Encounter Summary ---
:1950 Author Organization [facility] Address [address] [place] [address] Care Team Providers Name Role Phone Merrill Bee P.A.-C. Primary Care Provider [phone] Reason for Referral Outpatient (Routine) - Closed Specialty Diagnoses / Procedures Referred By Contact Refer red To Contact Diagnoses Primary Osteoarthritis Knee Left [facility] Region Procedures enl-txtw-zvgowkuv-elbow arthrocentesis: L knee joint [address] [place] [address] Referral ID Status Reason Start Date Expiration Date Visits Requ ested Visits Authorized [id number] Closed 12/01/2020 12/01/2021 1 1 Reason for Visit Reason Comments Injections Outpatient (Routine) - Closed Specialty Diagnoses / Procedures Referred By Contact Refer red To Contact Diagnoses Primary Osteoarthritis Knee Left Walt Landrum M.D. [facility] Region Procedures ORS Non-Guided aspiration/injection [address] [place] [phone] Referral ID Status Reason Start Date Expiration Date Visits Requ ested Visits Authorized [id number] Closed 11/17/2020 11/17/2021 1 1 Encounter Details Date Type Department Care Team Description 12/01/2020 Procedure visit Department of Isaac Palacios O steoarthritis Orthopedic Surgery M, P.A.-C. Knee Left (Primary Dx) in [place], [address] [place], [place] [address] [address] [place], [place] [phone] (Work) [phone] Social History Tobacco Use Types Packs/Day Years Used Date Smoking Tobacco: Former Cigarettes Quit : 1993 Smokeless Tobacco: Never Alcohol Use Standard Drinks/Week Comments Yes 16 (1 standard drink = 0.6 oz pure alcoh ol) Alcohol Habits Answer Date Recorded How often do you have a drink containing 4 or more times a w [place] 10/05/2021 alcohol? How many drinks containing alcohol [...] or relatives? How often do you attend voodoo or 1 to 4 times per year 07/2021 hoahaoism services? Do you belong to any clubs or Yes 10/05/2021 organizations such as voodoo groups, unions, fraternal or athletic groups, or [...] place to sleep or slept in a fci (including now)? Education Answer Date Recorded What is the highest level of school Master's degree (e.g., M A, MS, 12/01/2018 you have completed or the highest Faustina, MEd, SPINNER IRON, GIORGIO) degree you have received? Sex Assigned at Date Recorded Female 03/07/2018 9:31 AM CDT documented as of this encounter Procedure Notes Isaac Palacios P.A.-C. - 12/01/2020 9:30 AM CDTAssociated Order(s): uyy-zpmn-vfodiwkx-elbow arthrocentesis: L knee joint Post-Procedure Diagnose(s): Primary Osteoarthritis Knee Left Knee site- L knee joint : injection only Date/Time: 12/01/2020 9:25 AM Performed by: Isaac Palacios P.A.-C. Authorized by: Isaac Palacios P.A.-C. PROCEDURE DETAILS Procedure Location knee Knee site: L knee joint Site prep: patient was prepped and draped in usual sterile fashion Patient position: seated Procedural approach: anterolateral Procedure performed: injection only Needle gauge: 21 G Procedural Medication The following medications were administered at the target site(s) Viscosupplement: 20 mg sodium hyaluronate (viscosup) 10 mg/mL(mw 2.4 -3.6 million) CONSENT Consent obtained: written UNIVERSAL PROTOCOL All [...] a procedural pause. PRE-PROCEDURE DETAILS Procedure purpose: therapeutic Indications: pain Appropriate hand hygiene, gown, cap, mask, protective eyewear, sterile gloves, skin preparation, sterile drape, and strict aseptic technique were utilized as applicable for the procedure: yes Skin preparation: chlorhexidine SEDATION / ANESTHESIA Anesthesia method: pre-procedure topical application POST-PROCEDURE DETAILS Procedure completed successfully: yes Complications: no apparent complications Post-procedure instructions: avoid strenuous activity for 2 days Discharge instructions: ice area as needed for comfort documented in this encounter Plan of Treatment Upcoming Encounters Date Type Specialty Care Team Description 03/25/2022 Office Visit Family Medicine Leslie Gonzalez M.D. [address] [place] [address] [phone] (Wo rk) documented as of this encounter Procedures Procedure Name Priority Date/Time Associated Diagnosis Comme nts CO ARTHCS ASP/INJ Routine 12/01/2020 9:25 AM Primary Osteoarth ritis Results for this MJR JT WO US CDT Knee Left procedure are i n the results section. documented in this encounter Results CO ARTHCS ASP/INJ MJR JT WO US (12/01/2020 9:25 AM CDT) Narrative MMODAL - 12/01/2020 9:25 AM CDT Isaac Palacios P.A.-C. ? 12/01/2020 ??9:26 AM Knee site- L knee joint : injection only Date/Time: 12/01/2020 9:25 AM Performed by: Isaac Palacios P.A.-C. Authorized by: Isaac Palacios P.A.-C. PROCEDURE DETAILS Procedure Location knee Knee site: L knee joint Site prep: patient was prepped and drape d in usual sterile fashion ?? Patient position: seated Procedural approach: anterolateral Procedure performed: injection only Needle gauge: 21 G Procedural Medication The following medications were administe red at the target site(s) Viscosupplement: 20 mg sodium hyaluronat e (viscosup) 10 mg/mL(mw 2.4 -3.6 million) CONSENT Consent obtained: written UNIVERSAL PROTOCOL All [...] procedu ral pause. PRE-PROCEDURE DETAILS Procedure purpose: therapeutic Indications: pain Appropriate hand hygiene, gown, cap, mas k, protective eyewear, sterile gloves, skin preparation, sterile drape, and strict aseptic technique were utilized as applicable for the procedure : yes ?? Skin preparation: chlorhexidine SEDATION / ANESTHESIA Anesthesia method: pre-procedure topical application POST-PROCEDURE DETAILS Procedure completed successfully: yes Complications: no apparent complications ?? Post-procedure instructions: avoid stren uous activity for 2 days Discharge instructions: ice area as need ed for comfort Isaac Palacios P.A.-C. PROCEDURE/MINOR SURGICAL ORD ERABLES Performing Organization Address City/State/ZIP Code Phon e Number MMODAL MMODAL NA documented in this encounter Visit Diagnoses Diagnosis Primary Osteoarthritis Knee Left - Prima ry documented in this encounter Administered Medications Inactive Administered Medications - up to 3 most recent administrations Medication Order MAR Action Action Date Dose Rate Site sodium hyaluronate (viscosup) Given 12/01/2020 9:25 AM CDT 20 mg injection 20 mg (EUFLEXXA) 20 mg, intra-articular, One-Time Injection, Starting on Tue12/01/20 at 0925, For 1 dose documented in this encounter Care Teams Psych Specialist Relationship Specialty Start Date End Date Merrill Bee P.A.-C. PCP - General 11/18/[address] [place] [phone] documented as of this encounter
--- OUTSIDE RECORDS SUMMARY | 2022-03-22 15:46 | XMS_ITS | Encounter Summary ---
:1950 Author Organization [facility] Address [address] [place] [address] Care Team Providers Name Role Phone Merrill Bee P.A.-C. Primary Care Provider [phone] Reason for Visit Reason Comments Med Refill Encounter Details Date Type Department Care Team Description 10/04/2020 Refill Department of Family Medicine, Merrill Rodriguez P.A.-C. Med Refill [facility], in [address] [place] [phone] [place] [address] [place] [address] [phone] Social History Tobacco Use Types Packs/Day Years Used Date Smoking Tobacco: Former Cigarettes Quit : 1993 Smokeless Tobacco: Never Alcohol Use Standard Drinks/Week Comments Yes 16 (1 standard drink = 0.6 oz pure alcoh ol) Alcohol Habits Answer Date Recorded How often do you have a drink containing 4 or more times a w [place] 10/05/2021 alcohol? How many drinks containing alcohol [...] or relatives? How often do you attend mormon or 1 to 4 times per year 07/2021 congregational services? Do you belong to any clubs or Yes 10/05/2021 organizations such as mormon groups, unions, fraternal or athletic groups, or [...] have completed or the highest Faustina, MEd, ORDER MANAGER, GIORGIO) degree you have received? Sex Assigned at Date Recorded Female 03/07/2018 9:31 AM CDT documented as of this encounter Plan of Treatment Upcoming Encounters Date Type Specialty Care Team Description 03/25/2022 Office Visit Family Medicine Leslie Gonzalez M.D. [address] [place] [phone] (Wo rk) documented as of this encounter Visit Diagnoses Not on filedocumented in this encounter Care Teams Aircraft Instrument Engineer Relationship Specialty Start Date End Date Merrill Bee P.A.-C. PCP - General 11/18/[address] [place] [phone] documented as of this encounter
--- OUTSIDE RECORDS SUMMARY | 2022-03-22 15:46 | XMS_ITS | Encounter Summary ---
:1950 Author Organization [facility] Address [address] [place] [address] Care Team Providers Name Role Phone Merrill Bee P.A.-C. Primary Care Provider [phone] Reason for Visit Outpatient (Routine) - Closed Specialty Diagnoses / Procedures Referred By Contact Refer red To Contact Pain Medicine Earnestine Egan, [facility] anshul Marte, M.S. [address] [place] [address] Referral ID Status Reason Start Date Expiration Date Visits Requ ested Visits Authorized [id number] Closed 10/10/2020 10/10/2021 1 1 Encounter Details Date Type Department Care Team Description 10/17/2020 Virtual Visit Division of Pain Earnestine Egan Spina l Stenosis Lumbosacral Region (Primary Dx); Medicine in [place] Jurado, M.S. Radiculopathy Lumbar [place], [place] [address] [place] [address] [address] [place] [phone] Social History Tobacco Use Types Packs/Day Years Used Date Smoking Tobacco: Former Cigarettes Quit : 1993 Smokeless Tobacco: Never Alcohol Use Standard Drinks/Week Comments Yes 16 (1 standard drink = 0.6 oz pure alcoh ol) Alcohol Habits Answer Date Recorded How often do you have a drink containing 4 or more times a w [place] 10/05/2021 alcohol? How many drinks containing alcohol [...] or relatives? How often do you attend shinto or 1 to 4 times per year 07/2021 evangelical services? Do you belong to any clubs or Yes 10/05/2021 organizations such as shinto groups, unions, fraternal or athletic groups, or school groups? How often do you attend meetings of the More than 4 times pe r 10/05/2021 clubs or organizations you belong to? [...] have completed or the highest Faustina, MEd, MASTIC SPRAYER, GIORGIO) degree you have received? Sex Assigned at Date Recorded Female 03/07/2018 9:31 AM CDT documented as of this encounter Progress Notes Earnestine Egan P.A.-C., M.S. - 10/17/2020 2:00 PM CDT REFERRAL Earnestine Egan P.A.-C., M.S. CHIEF COMPLAINT / REASON FOR VISIT Low back and lower extremity pain. Telephone Communication. HISTORY OF PRESENT ILLNESS Nicholas Simmons is a 70 y.o. female who presents to the Pain Clinic for follow-up. I last saw the patient for outpatient pain clinic consultation June 04, 2020 and would refer the reader to my note on that date for further details. That same day, she underwent midline L5-S1 interlaminar epiduralsteroid injection. Today's follow-up discussion is held via telephone communication. Ms. Simmons endorses 85-90% pain relief following the lumbar epidural May 2020. She had a setback in June, as she was hospitalized for a bowel obstruction requiring hospitalization. During that time, she states he back felt okay while hospitalized but she was not able to do her exercises. [place]ien[place] began to worsen in mid-July. Currently, she is having leg>back pain. The pain spans the posterior aspect from the buttocks to the knees, occasionally to the calves. Left leg slightly worse than right. She is having leg cramps at night again which she had not had since prior to the injection. The pain is worse with going up/down stairs, initiating walking, standing at a sink, etc. The pain is improved with sitting down doing nothing. Patient denies recent fevers, chills, infections, or antibiotic use. No allergies to contrast dye, local anesthetics or corticosteroid. No neurologic red flag symptoms. Pain score today is rated 7-8/10. Current Outpatient Medications Medication Sig Dispense Refill ??? acetaminophen (TYLENOL) 500 mg tablet Take 500-1,000 mg by mouth 3 (three) times a [...] Take 1,000 Units by mouth daily. ??? clobetasoL (TEMOVATE) 0.05 % cream Apply 1 application topically 2 (two) times a day. 30 g 0 ??? DOCOSAHEXANOIC ACID/EPA (FISH OIL ORAL) omega-3 [...] daily. ??? meclizine (ANTIVERT) 25 mg tablet TAKE 1 TABLET BY MOUTH THREE TIMES DAILY NEEDED FOR DIZZINESS 270 tablet 3 ??? multivitamin (THERAGRAN) tablet Take [...] reviewed and updated as appropriate: family history, medical history, social history and surgical history. OBJECTIVE ASSESSMENT / PLAN #1 Spinal Stenosis Lumbosacral Region #2 Radiculopathy Lumbar 1. Injections: It is reasonable for Ms. Simmons to proceed with the injection as ordered. She has no contraindications to a repeat lumbar epidural. She understands the risks and benefits. She understands to allow 2 weeks time to receive full benefit. Today's informed consent discussion was conducted over [...] proceed. I personally spent a total of 8 minutes in lli-cwuw-yo-face time performing a review of the record and/or discussion with the patient/caregiver as described above. Followup: She will follow up with the Pain Clinic as needed. PATIENT EDUCATION Ready to learn, no apparent learning barriers were identified: learning preferences included listening. Explained diagnosis and treatment plan; patient expressed understanding of the content. documented in this encounter Plan of Treatment Upcoming Encounters Date Type Specialty Care Team Description 03/25/2022 Office Visit Family Medicine Leslie Gonzalez M.D. [address] [place] [phone] (Wo rk) documented as of this encounter Visit Diagnoses Diagnosis Spinal Stenosis Lumbosacral Region - Kassidy nicholas Radiculopathy Lumbar documented in this encounter Care Teams Toolmaker Relationship Specialty Start Date End Date Merrill Bee P.A.-C. PCP - General 11/18/16 [address] [place] [phone] documented as of this encounter
--- OUTSIDE RECORDS SUMMARY | 2022-03-22 15:46 | XMS_ITS | Encounter Summary ---
:1950 Author Organization [facility] Address [address] [place] [address] Care Team Providers Name Role Phone Merrill Bee P.A.-C. Primary Care Provider [phone] Reason for Visit Reason Comments COVID Nurse Line Dizziness Encounter Details Date Type Department Care Team Description 07/08/2020 Nurse Triage Department of Lory Zambrano C OVID Nurse Line; Medicine, [place] [facility], in [place], [address] [place] [phone] [place] [address] Social History Tobacco Use Types Packs/Day Years Used Date Smoking Tobacco: Former Cigarettes Quit : 1993 Smokeless Tobacco: Never Alcohol Use Standard Drinks/Week Comments Yes 16 (1 standard drink = 0.6 oz pure alcoh ol) Alcohol Habits Answer Date Recorded How often do you have a drink containing 4 or more times a w [place] 10/05/2021 alcohol? How many drinks containing alcohol [...] or relatives? How often do you attend worship or 1 to 4 times per year 07/2021 anabaptist services? Do you belong to any clubs or Yes 10/05/2021 organizations such as worship groups, unions, fraternal or athletic groups, or school groups? How often do you attend meetings of the More than 4 times [facility] year 10/05/2021 clubs or organizations you belong [...] have completed or the highest Faustina, MEd, PROFESSOR OF GRAPHIC DESIGN, GIORGIO) degree you have received? Sex Assigned at Date Recorded Female 03/07/2018 9:31 AM CDT documented as of this encounter Miscellaneous Notes Telephone Encounter - Lory Horowitz R.N. - 07/08/2020 10:50 AM PROTECTIVE SIGNAL OPERATOR Chief Complaint / Reason for Call Patient is a 70 y.o. female calling regarding COVID Nurse Line and Dizziness. Assessment Concern: Patient was dismissed from the Hospital 16 days ago. Since that time she has had dizziness,fatigue. She is wondering if her blood pressure medication needs changed. She does not have a way tocheck her pressures. Calling to request: Appointment The recommended disposition is Go to ED Now (or PCP Triage). Ms. Simmons declined the Emergency Room. She is hoping for an appointment in Primary Care. Reason for Disposition ??? [1] Dizziness (vertigo) present now AND [2] one or more stroke risk factors (i.e., hypertension,diabetes, prior stroke/TIA/heart attack) (Exception: prior physician evaluation for this AND no different/worse than usual) Protocols used: DIZZINESS - [id number] Care Advice Patient/Caregiver understands and will follow care advice?: Yes, able to teach back GO TO ED NOW (OR PCP TRIAGE): NOTE TO TRIAGER - DRIVING: * Another adult should drive. * If immediate transportation is not available via car or taxi, then the patient should be instructed to call [phone]. ECTIVE SIGNAL OPERATOR Telephone Encounter - Lory Horowitz R.N. - 07/08/2020 10:47 AM PROTECTIVE SIGNAL OPERATOR COVID-19 Nurse Line Screening ASSESSMENT Region Select appropriate region: : [place] Age Pathway Select approprite pathway: : Adult Have you had close contact* with a person who has a LABORATORY CONFIRMED case of COVID-19 in the past 14 days?: No (Continue Screening) In the last 48 hours, have you had a fever* OR symptoms that are unrelated to a preexisting illness?: No symptoms noted (Continue Screening) Have you tested positive for COVID-19 in the last 90 days?: No (Continue Screening) Have you been advised to undergo testing or are you requesting testing?: No, testing not recommended(End Screening) Testing Recommendation Endpoint Is testing recommended? : Not recommended to test PLAN Endpoint recommendation: Screening negative, testing not indicated at this time Care Points: -Wash hands frequently with soap and water for at least 20 seconds -If soap and water are not available, use a hand fire information officer -Avoid touching your eyes, nose and mouth. -Clean and disinfect high-touch surfaces routinely. -Wear a mask over your nose and mouth. A cloth face cover is not a substitute for social distancing -Continue to keep about 6 feet between yourself and others. -Avoid public areas and public transportation. -Find new ways to connect with family and friends, get support and share feelings. -Seek emergent care if any of the following occur Trouble breathing Bluish lips or face Persistent pain or pressure in the chest New confusion or inability to rouse. -Notify your regular care provider of any new or worsening symptoms. Education: Patient/caregiver able to teach back Patient agreeable to plan of care: Yes The following references were used: [facility] novel coronavirus (COVID- 19) resources Nursing judgement ECTIVE SIGNAL OPERATOR documented in this encounter Plan of Treatment Upcoming Encounters Date Type Specialty Care Team Description 03/25/2022 Office Visit Family Medicine Leslie Gonzalez M.D. [address] [place] [address] ERIKA [place]o [phone] (Wo rk) documented as of this encounter Visit Diagnoses Not on filedocumented in this encounter Care Teams Fitter Placer Relationship Specialty Start Date End Date Merrill Bee P.A.-C. PCP - General 11/18/[address] [place] [phone] documented as of this encounter
--- OUTSIDE RECORDS SUMMARY | 2022-03-22 15:46 | XMS_ITS | Encounter Summary ---
:1950 Author Organization [facility] Address [address] [place] [address] Care Team Providers Name Role Phone Merrill Bee P.A.-C. Primary Care Provider [phone] Reason for Visit Reason Comments Pre-Charting Encounter Details Date Type Department Care Team Description 10/16/2020 Clinical Communication Division of Darshana Lebron Pre-Charting Medicine in [place] Jurado, M.S. [address] [place] [phone] Social History Tobacco Use Types Packs/Day Years Used Date Smoking Tobacco: Former Cigarettes Quit : 1993 Smokeless Tobacco: Never Alcohol Use Standard Drinks/Week Comments Yes 16 (1 standard drink = 0.6 oz pure alcoh ol) Alcohol Habits Answer Date Recorded How often do you have a drink containing 4 or more times a w [place] 10/05/2021 alcohol? How many drinks containing alcohol [...] or relatives? How often do you attend sikh or 1 to 4 times per year 07/2021 episcopalian services? Do you belong to any clubs or Yes 10/05/2021 organizations such as sikh groups, unions, fraternal or athletic groups, or [...] place to sleep or slept in a usp (including now)? Education Answer Date Recorded What is the highest level of school Master's degree (e.g., Adrien Bowens, MS, 12/01/2018 you have completed or the highest Faustina, MEd, BIOFUELS PLANT CONSTRUCTION WORKER, GIORGIO) degree you have received? Sex Assigned at Date Recorded Female 03/07/2018 9:31 AM CDT documented as of this encounter Plan of Treatment Upcoming Encounters Date Type Specialty Care Team Description 03/25/2022 Office Visit Family Medicine Leslie Gonzalez M.D. [address] [place] [phone] (Wo rk) documented as of this encounter Visit Diagnoses Not on filedocumented in this encounter Care Teams Local Combination Truck Driver Relationship Specialty Start Date End Date Merrill Bee P.A.-C. PCP - General 11/18/[address] [place] [phone] documented as of this encounter
--- OUTSIDE RECORDS SUMMARY | 2022-03-22 15:46 | XMS_ITS | Encounter Summary ---
:1950 Author Organization [facility] Address [address] [place] [address] Care Team Providers Name Role Phone Merrill Bee P.A.-C. Primary Care Provider [phone] Reason for Referral Outpatient (Routine) - Closed Specialty Diagnoses / Procedures Referred By Contact Refer red To Contact Diagnoses Primary Osteoarthritis Knee Left [facility] Region Procedures qnw-qpre-yalduubv-elbow arthrocentesis: L knee joint Estuardo [address] [place] [address] Referral ID Status Reason Start Date Expiration Date Visits Requ ested Visits Authorized [id number] Closed 11/24/2020 11/24/2021 1 1 Reason for Visit Reason Comments Injection Visit Outpatient (Routine) - Closed Specialty Diagnoses / Procedures Referred By Contact Refer red To Contact Diagnoses Primary Osteoarthritis Knee Left Walt Landrum M.D. [facility] Region Procedures ORS Non-Guided aspiration/injection [address] [place] [phone] Referral ID Status Reason Start Date Expiration Date Visits Requ ested Visits Authorized [id number] Closed 11/17/2020 11/17/2021 1 1 Encounter Details Date Type Department Care Team Description 11/24/2020 Procedure visit Department of Isaac Palacios O steoarthritis Orthopedic Surgery M, P.A.-C. Knee Left (Primary Dx) in [place], [address] [place], [place] [address] [address] [place], [place] [phone] (Work) [phone] Social History Tobacco Use Types Packs/Day Years Used Date Smoking Tobacco: Former Cigarettes Quit : 1993 Smokeless Tobacco: Never Alcohol Use Standard Drinks/Week Comments Yes 16 (1 standard drink = 0.6 oz pure alcoh ol) Alcohol Habits Answer Date Recorded How often do you have a drink containing 4 or more times a w [place] 10/05/2021 alcohol? How many drinks containing alcohol [...] 1 to 4 times per year 07/2021 jewish services? Do you belong to any clubs [...] have completed or the highest Faustina, MEd, RN DIABETES EDUCATOR, GIORGIO) degree you have received? Sex Assigned at Date Recorded Female 03/07/2018 9:31 AM CDT documented as of this encounter Procedure Notes Isaac Palacios P.A.-C. - 11/24/2020 10:15 AM CDTAssociated Order(s): txc-vwev-ndqycpzx-elbow arthrocentesis: L knee joint Post-Procedure Diagnose(s): Primary Osteoarthritis Knee Left Knee site- L knee joint : injection only Date/Time: 11/24/2020 10:09 AM Performed by: Isaac Palacios P.A.-C. Authorized by: Isaac Palacios P.A.-C. PROCEDURE DETAILS Procedure Location knee Knee site: L knee joint Site prep: patient was prepped and draped in usual sterile fashion Patient position: seated Procedural approach: anterolateral Procedure performed: injection only Needle gauge: 21 G Procedural Medication The following medications were administered at the target site(s) Viscosupplement: 16 mg hylan g-f 20 16 mg/2 mL CONSENT Consent obtained: written UNIVERSAL PROTOCOL All [...] completed successfully: yes Complications: no apparent complications Discharge instructions: ice area as needed for comfort documented in this encounter Plan of Treatment Upcoming Encounters Date Type Specialty Care Team Description 03/25/2022 Office Visit Family Medicine Leslie Gonzalez M.D. [address] [place] [phone] ([facility]) documented as of this encounter Procedures Procedure Name Priority Date/Time Associated Diagnosis Comme nts SD ARTHCS ASP/INJ Routine 11/24/2020 10:09 Primary Osteoarthri tis Results for this MJR JT WO US AM CDT Knee Left procedure are i n the results section. ORS NON-GUIDED Routine 11/24/2020 9:41 AM Primary Osteoarthrit is ASPIRATION/INJECTI CDT Knee Left ON documented in this encounter Results SD ARTHCS ASP/INJ MJR JT WO US (11/24/2020 10:09 AM CDT) Narrative MMODAL - 11/24/2020 10:09 AM CDT Isaac Palacios P.A.-C. ? 11/24/2020 10:09 AM Knee site- L knee joint : injection only Date/Time: 11/24/2020 10:09 AM Performed by: Isaac Palacios P.A.-C. Authorized by: Isaac Palacios P.A.-C. PROCEDURE DETAILS Procedure Location knee Knee site: L knee joint Site prep: patient was prepped and drape d in usual sterile fashion ?? Patient position: seated Procedural approach: anterolateral Procedure performed: injection only Needle gauge: 21 G Procedural Medication The following medications were administe red at the target site(s) Viscosupplement: 16 mg hylan g-f 20 16 m g/2 mL CONSENT Consent obtained: written UNIVERSAL PROTOCOL All [...] successfully: yes Complications: no apparent complications ?? Discharge instructions: ice area as need ed [...] MAR Action Action Date Dose Rate Site hylan g-f 20 injection 16 mg Given 11/24/2020 10:09 AM CDT 16 mg (SYNVISC) 16 mg, intra-articular, One-Time Injection, Starting on Tue11/24/20 at 1009, For 1 dose documented in this encounter Care Teams Mutton Puncher Relationship Specialty Start Date End Date Merrill Bee P.A.-C. PCP - General 11/18/16 [address] [place] [phone] documented as of this encounter
--- OUTSIDE RECORDS SUMMARY | 2022-03-22 15:46 | XMS_ITS | Encounter Summary ---
:1950 Author Organization [facility] Address [address] [place] [address] Care Team Providers Name Role Phone Merrill Bee P.A.-C. Primary Care Provider [phone] Reason for Referral Outpatient (Routine) - Closed Specialty Diagnoses / Procedures Referred By Contact Refer red To Contact Diagnoses Radiculopathy Lumbar Earnestine Egan [place] Region Procedures FL Lumbar Spine Interlaminar Epidural Injection Estuardo, M.S. [address] [place] [address] Referral ID Status Reason Start Date Expiration Date Visits Requ ested Visits Authorized [id number] Closed 10/10/2020 10/10/2021 1 1 utpatient (Routine) - Closed Specialty Diagnoses / Procedures Referred By Contact Refer red To Contact Pain Medicine [facility] [address] [place] [phone] Referral ID Status Reason Start Date Expiration Date Visits Requ ested Visits Authorized [id number] Closed 10/10/2020 10/10/2021 1 1 Reason for Visit Reason Comments Injections Encounter Details Date Type Department Care Team Description 10/09/2020 Clinical Communication Division of Pain Darshana Egan Injections Medicine in [place]uardo Jurado, M.S. [place], [place] [address] [facility] [address] [place] [phone] Social History Tobacco Use Types Packs/Day Years Used Date Smoking Tobacco: Former Cigarettes Quit : 1993 Smokeless Tobacco: Never Alcohol Use Standard Drinks/Week Comments Yes 16 (1 standard drink = 0.6 oz pure alcoh ol) Alcohol Habits Answer Date Recorded How often do you have a drink containing 4 or more times a w [place] 10/05/2021 alcohol? How many drinks containing alcohol [...] have completed or the highest Faustina, MEd, PENSION AGENT, GIORGIO) degree you have received? Sex Assigned at Date Recorded Female 03/07/2018 9:31 AM CDT documented as of this encounter Miscellaneous Notes Telephone Encounter - Luba Carey R.N. - 10/10/2020 11:37 AM CDT Patient informed of Earnestine Pulido's recommendations. She has scheduled her appointments. She had no further questions. Telephone Encounter - Luba Carey R.N. - 10/10/2020 8:54 AM CDT SUBJECTIVE CHIEF COMPLAINT / REASON FOR CALL Injections Information Discussed Ms. Simmons contacted our office to request an Epidural injection. She underwent a interlaminar steroid epidural midline L5-S1 on 06/04/20. She suffers from low back pain with radiation down the posterior bilateral thighs. She states the epidural injection worked well for her, reducing her pain 80%. She was hospitalized over the winter with a bowel obstruction which her doctors feel was related to scar tissue build up from her previous hysterectomy/bowel resection. Since she was less active, she feels her pain returned. She feels the epidural lasted until August. She denies any bowel/bladder changes except for the obstruction she had. She denies any new weakness, numbness or tingling. She is on anAspirin 325 mg daily. She is aware of future options per Earnestine Pulido's note dated 06/04/20. She would prefer to have another epidural injection. PLAN Disposition/Recommendation: notified provider and awaiting recommendations Information/Education: patient/caller able to teach back Caller agreeable to plan of care: yes The following references were used: nursing clinical judgement documented in this encounter Plan of Treatment Upcoming Encounters Date Type Specialty Care Team Description 03/25/2022 Office Visit Family Medicine Leslie Gonzalez M.D. [address] [place] [phone] (Wo rk) Scheduled Referrals Name Type Priority Associated Diagnoses Order [facility] Pain Medicine Outpatient Referral Routine Expecte d: office visit 10/10/2020 (clinic) (Approximate), Expires: 10/11/2023 documented as of this encounter Results [place] LUMBAR SPINE INTERLAMINAR EPIDURAL INJECTION (10/27/2020 9:54 AM CDT) Specimen (Source) Anatomical Location Collection Method / Collectio n Time Received Time / Laterality Volume Narrative Ole Chapman D.O., M.P.H. - 10/05 9:48 AM CDT Ole Chapman D.O., M.P.H. ? 10/27/2020 10:40 AM FL Lumbar Spine Interlaminar Epidural In jection Date/Time: 10/27/2020 9:48 AM Performed by: Ole Chapman D.O., M.P.H. Authorized by: Earnestine Egan P.AGiovany -Lisa, M.S. Care team members present 1. Bhargavi Serra, L.P.N. PROCEDURE SUMMARY Indications: Radiculitis Pre-procedural pain: 4/10 Post-procedural pain: 4/10 Site: lumbar Lumbar: interlaminar epidural steroid Interlaminar steroid injection: Midline L5-S1 Needle or RF cannula: Tuohy Needle size: 20 G Needle length: 3.5 in Patient position: prone IMAGING Fluoroscopic guidance: Yes ?? Ultrasound guidance: No ?? INJECTED MEDICATIONS The injected medication(s) listed was [...] documented in this encounter Visit Diagnoses Diagnosis Radiculopathy Lumbar - Primary Radiculopathy Lumbar documented in this encounter Care Teams Holder Pile Driving Relationship Specialty Start Date End Date Merrill Bee P.A.-C. PCP - General 11/18/[address] [place] [phone] documented as of this encounter
--- OUTSIDE RECORDS SUMMARY | 2022-03-22 15:46 | XMS_ITS | Encounter Summary ---
:1950 Author Organization [facility] Address [address] [place] [address] Care Team Providers Name Role Phone Merrill Bee P.A.-C. Primary Care Provider [phone] Reason for Referral Outpatient (Routine) - Closed Specialty Diagnoses / Procedures Referred By Contact Refer red To Contact General Surgery Diagnoses Reflux Esophageal Obstruction Intestinal (HCC) Merrill Bee [facility] Estuardo [address] [place] [phone] Referral ID Status Reason Start Date Expiration Date Visits V isits Requested Authorized [id number] Closed Specialty 06/30/2020 06/30/2021 1 1 Services Required SERVICE MECHANIC Reason for Visit Reason Comments Follow-up Discharged from [place] on 06/06 12/24 for Bowel constriction. Appointment Request (Routine) - Closed Specialty Diagnoses / Procedures Referred By Contact Refer red To Contact Family Medicine Referral ID Status Reason Start Date Expiration Date Visits Requ ested Visits Authorized [id number] Closed 06/23/2020 06/23/2021 1 1 Encounter Details Date Type Department Care Team Description 06/30/2020 Office Visit Department of Merrill Self Re flux Esophageal (Primary Dx); Medicine, [facility] Obstruction Intestinal (HCC) Clinic, [address] [address] [place], [place] [phone] (Work) [phone] Social History Tobacco Use Types Packs/Day Years Used Date Smoking Tobacco: Former Cigarettes Quit : 1993 Smokeless Tobacco: Never Alcohol Use Standard Drinks/Week Comments Yes 16 (1 standard drink = 0.6 oz pure alcoh ol) Alcohol Habits Answer Date Recorded How often do you have a drink containing 4 or more times a w [place] 10/05/2021 alcohol? How many drinks containing alcohol [...] or relatives? How often do you attend religion or 1 to 4 times per year 07/2021 latter-day services? Do you belong to any clubs or Yes 10/05/2021 organizations such as religion groups, unions, fraternal or athletic groups, or [...] have completed or the highest Faustina, MEd, WAREHOUSE ENGINEER, GI[place]IO) degree you have received? Sex Assigned at Date Recorded Female 03/07/2018 9:31 AM CDT documented as of this encounter Last Filed Vital Signs Vital Sign Reading Time Taken Comments Blood Pressure 108/64 06/30/2020 9:53 AM AUTO SERVICE MECHANIC Pulse 96 06/30/2020 9:53 AM AUTO SERVICE MECHANIC Temperature 36.7 ??C (98.1 ??F) 06/30/2020 9:53 AM AUTO SERVICE MECHANIC Respiratory Rate 12 06/30/2020 9:53 AM AUTO SERVICE MECHANIC Oxygen Saturation 96% 06/30/2020 9:53 AM AUTO SERVICE MECHANIC Inhaled Oxygen Concentration - - Weight 88.8 kg (195 lb 12.3 oz) 06/30/2020 9:53 AM AUTO SERVICE MECHANIC Height 170.9 cm (5' 7.28) 06/30/2020 9:53 AM AUTO SERVICE MECHANIC Body Mass Index 30.4 06/30/2020 9:53 AM AUTO SERVICE MECHANIC documented in this encounter Progress Notes Merrill Bee P.A.-C. - 06/30/2020 10:00 AM CST CHIEF COMPLAINT / REASON FOR VISIT Steph Simmons is a 70 y.o. female who presents for evaluation of Follow-up (Discharged from [place] on 06/22/20 for Bowel constriction.). HISTORY OF PRESENT ILLNESS Steph presents today following a recent hospitalization. She was admitted on June 16 and discharged on June 22 of the small bowel obstruction. She has a history of a partial colectomy. It wasthought that he should this played a role in her small bowel obstruction. I did review her CT scan as well as her small bowel follow-through. This did confirm that her small bowel obstruction had resolved. She has some chronic back pain she takes Aleve an aspirin on a regular basis. Since her discharge from the hospital she has been complaining of epigastric discomfort. She says this is worse when she eats. She says sometimes it is in her epigastric area sometimes a little lower. She had a colonoscopy last year. She denies any nausea vomiting or diarrhea or constipation since discharge from the hospital. She was experiencing nausea while in the hospital. Patient Active Problem List Diagnosis ??? Reflux Esophageal ??? Hypercholesterolemia ??? Neuropathy Peripheral ??? Hypertension Essential Primary ??? Onychomycosis ??? Spinal Stenosis Lumbosacral Region OBJECTIVE Vitals: 06/30/20 0953 BP: 108/64 BP Location: Left arm Patient Position: Sitting Cuff Size: Large Pulse: 96 Resp: 12 Temp: 36.7 ??C TempSrc: Temporal SpO2: 96% Weight: 88.8 kg Height: 170.9 cm Body mass index is 30.4 kg/m??. PHYSICAL EXAM In general she appears in no acute distress Heart: Regular rate rhythm Lungs: Clear to auscultation Abdomen: She does have some epigastric discomfort. No guarding or rigidity was noted. IMPRESSION / REPORT / PLAN #1 Reflux Esophageal We had a good discussion about her symptoms. She had a small-bowel obstruction. This has since resolved she has some epigastric discomfort following discharge. I reviewed her hospital testing that was done. I am going to have her discontinue her Aleve as well as her aspirin for now in double up her Nexium. I would like her to follow up with General surgery to get their opinion. I did question doing an EGD but I would like to get Dr. Shoemaker opinion on this. I am hopeful this is just a gastritis and will improve with avoidance of her nonsteroidals and aspirin in high increasing her Nexium. If she does develop recurrent small-bowel obstruction will likely require further surgical evaluation. #2 Obstruction Intestinal (HCC) She will follow-up with Dr. Rodriguez for his opinion. If there is any further questions or problems orworsening of her symptoms in the meantime she will let us know Merrill Bee P.A.-C. SERVICE MECHANIC documented in this encounter Plan of Treatment Upcoming Encounters Date Type Specialty Care Team Description 03/25/2022 Office Visit Family Medicine Leslie Gonzalez M.D. [address] [place] [phone] (Wo rk) Scheduled Referrals Name Type Priority Associated Diagnoses Order S [facility] Surgery - Outpatient Referral Routine Reflux Eso phageal Expected: General consult Obstruction 06/30/2020 (clinic) Intestinal (HCC) (Approximat e), Expires: 06/30/2023 documented as of this encounter Visit Diagnoses Diagnosis Reflux Esophageal - Primary Obstruction Intestinal (HCC) documented in this encounter Care Teams Road Inspector Relationship Specialty Start Date End Date Merrill Bee P.A.-C. PCP - General 11/18/[address] [place] [phone] documented as of this encounter
--- OUTSIDE RECORDS SUMMARY | 2022-03-22 15:46 | XMS_ITS | Encounter Summary ---
:1950 Author Organization [facility] Address [address] [place] [address] Care Team Providers Name Role Phone Merrill Bee P.A.-C. Primary Care Provider [phone] Reason for Referral Outpatient (Routine) - Closed Specialty Diagnoses / Procedures Referred By Contact Refer red To Contact Diagnoses Radiculopathy Lumbar Earnestine Egan [facility] Procedures FL Lumbar Spine Interlaminar Epidural Injection Estuardo, M.S. [address] [place] [address] Referral ID Status Reason Start Date Expiration Date Visits Requ ested Visits Authorized [id number] Closed 10/10/2020 10/10/2021 1 1 Reason for Visit Outpatient (Routine) - Closed Specialty Diagnoses / Procedures Referred By Contact Refer red To Contact Diagnoses Radiculopathy Lumbar Earnestine Egan [facility] Procedures FL Lumbar Spine Interlaminar Epidural Injection Estuardo, M.S. [address] [place] [address] Referral ID Status Reason Start Date Expiration Date Visits Requ ested Visits Authorized [id number] Closed 10/10/2020 10/10/2021 1 1 Encounter Details Date Type Department Care Team Description 10/27/2020 Hospital Encounter Division of Pain Jignesh, Radic ulopathy Lumbar Medicine in [place] Lynne P.A.-C., M.S. [place] [address] [facility] [address] [place] [phone] Social History Tobacco Use Types Packs/Day Years Used Date Smoking Tobacco: Former Cigarettes Quit : 1993 Smokeless Tobacco: Never Alcohol Use Standard Drinks/Week Comments Yes 16 (1 standard drink = 0.6 oz pure alcoh ol) Alcohol Habits Answer Date Recorded How often do you have a drink containing 4 or more times a w [place]rokee 10/05/2021 alcohol? How many drinks containing alcohol [...] or relatives? How often do you attend hoahaoism or 1 to 4 times per year 07/2021 congregation services? Do you belong to any clubs or Yes 10/05/2021 organizations such as hoahaoism groups, unions, fraternal or athletic groups, or [...] have completed or the highest Faustina, MEd, MECHANICAL SYSTEMS CONTROL ENGINEER, GIORGIO) degree you have received? Sex Assigned at Date Recorded Female 03/07/2018 9:31 AM CDT documented as of this encounter Last Filed Vital Signs Vital Sign Reading Time Taken Comments Blood Pressure 143/81 10/27/2020 9:54 AM CDT Pulse 104 10/27/2020 9:54 AM CDT Temperature 36.6 ??C (97.9 ??F) 10/27/2020 9:25 AM CDT Respiratory Rate - - Oxygen Saturation 98% 10/27/2020 9:54 AM CDT Inhaled Oxygen Concentration - - Weight - [...] FOR DIZZINESS documented as of this encounter Procedure Notes Ole Chapman D.O., M.P.H. - 10/27/2020 9:30 AM CDTAssociated Order(s): FL Lumbar Spine Interlaminar Epidural Injection Pre-Procedure Diagnose(s): Radiculopathy Lumbar Post-Procedure Diagnose(s): Radiculopathy Lumbar FL Lumbar Spine Interlaminar Epidural Injection Date/Time: 10/27/2020 9:48 AM Performed by: Ole Chapman D.O., M.P.H. Authorized by: Earnestine Egan P.A.-C., M.S. Care team members present 1. Bhargavi Serra, L.PGiovanyNGiovany PROCEDURE SUMMARY Indications: Radiculitis Pre-procedural pain: 4/10 Post-procedural pain: 4/10 Site: lumbar Lumbar: interlaminar epidural steroid Interlaminar steroid injection: Midline L5-S1 Needle or RF cannula: Tuohy Needle size: 20 G Needle length: 3.5 in Patient position: prone IMAGING Fluoroscopic guidance: Yes Ultrasound guidance: No INJECTED MEDICATIONS The injected medication(s) listed was [...] 0 Estimated blood loss: 0 Implants: 0 documented in this encounter Plan of Treatment Upcoming Encounters Date Type Specialty Care Team Description 03/25/2022 Office Visit Family Medicine Leslie Gonzalez M.D. [address] [place] [phone] (Wo rk) documented as of this encounter Procedures Procedure Name Priority Date/Time Associated Comments Diagnosis FL LUMBAR SPINE RAD - Routine 10/27/2020 9:54 Radiculopathy Results for INTERLAMINAR (most inpatients AM CDT Lumbar this proced ure EPIDURAL INJECTION and all are in th e outpatients) results section. documented in this encounter Results FL [...] Chapman D.O., M.P.H. Authorized by: Earnestine Egan P.A. -Lisa, M.S. Care team members present 1. Bhargavi Serra, L.PGiovanyNGiovany PROCEDURE SUMMARY Indications: Radiculitis Pre-procedural pain: 4/10 [...] this encounter Visit Diagnoses Diagnosis Radiculopathy Lumbar documented in this encounter Administered Medications Inactive Administered Medications - up to 3 most recent administrations Medication Order MAR Action Action Date Dose Rate Site betamethasone acetate & sodium Given 10/27/2020 9:48 AM CDT 6 mg phosphate injection 6 mg (CELESTONE SOLUSPAN) 6 mg, injection, One-Time Injection, Starting on Tue10/27/20 at 0948, For 1 dose iohexoL 300 mg iodine/mL solution 1 mL Given 10/27/2020 9:48 AM CDT 1 mL (OMNIPAQUE) 1 mL, injection, One-Time Injection, Starting on Tue10/27/20 at 0948, For 1 dose lidocaine 10 mg/mL (1 %) injection 1 mL Given 10/27/2020 9:48 AM CDT 1 mL (XYLOCAINE) 1 mL, injection, One-Time Injection, Starting on Tue10/27/20 at 0948, For 1 dose documented in this encounter Care Teams Yard General Car Supervisor Relationship Specialty Start Date End Date Merrill Bee P.A.-C. PCP - General 11/18/[address] [place] [phone] documented as of this encounter
--- OUTSIDE RECORDS SUMMARY | 2022-03-22 15:46 | XMS_ITS | Encounter Summary ---
:1950 Author Organization [facility] Address [address] [place] [address] Care Team Providers Name Role Phone Merrill Bee P.A.-C. Primary Care Provider [phone] Reason for Visit Reason Comments Abdominal Pain Outpatient (Routine) - Closed Specialty Diagnoses / Procedures Referred By Contact Refer red To Contact General Surgery Diagnoses Reflux Esophageal Obstruction Intestinal (HCC) Merrill Bee [facility] P.AGiovany-CGiovany [address] [place] [address] Referral ID Status Reason Start Date Expiration Date Visits V isits Requested Authorized [id number] Closed Specialty 06/30/2020 06/30/2021 1 1 Services Required Encounter Details Date Type Department Care Team Description 07/04/2020 Comprehensive Visit Department of Kendell Rodriguez x Esophageal; General Surgery in P, M.DGiovany Obstruction Intestinal (HCC) [place], [place] [address] [place] [phone] Social History Tobacco Use Types Packs/Day Years Used Date Smoking Tobacco: Former Cigarettes Quit : 1993 Smokeless Tobacco: Never Alcohol Use Standard Drinks/Week Comments Yes 16 (1 standard drink = 0.6 oz pure alcoh ol) Alcohol Habits Answer Date Recorded How often do you have a drink containing 4 or more times a w [place] 10/05/2021 alcohol? How many drinks containing alcohol [...] or relatives? How often do you attend uatsdin or 1 to 4 times per year 07/2021 uatsdin services? Do you belong to any clubs or Yes 10/05/2021 organizations such as uatsdin groups, unions, fraternal or athletic groups, or [...] to sleep or slept in a senior care (including now)? Education Answer Date Recorded What is the highest level of school Master's degree (e.g., M A, MS, 12/01/2018 you have completed or the highest Faustina, MEd, PACK PRESS OPERATOR, GIORGIO) degree you have received? Sex Assigned at Date Recorded Female 03/07/2018 9:31 AM CDT documented as of this encounter Last Filed Vital Signs Vital Sign Reading Time Taken Comments Blood Pressure - - Pulse 100 07/04/2020 2:42 PM RAMP AGENT Temperature - - Respiratory Rate 16 07/04/2020 2:42 PM RAMP AGENT Oxygen Saturation - - Inhaled Oxygen Concentration - - Weight - - Height - - Body Mass Index - - documented in this encounter Consult Notes Kendell Rodriguez M.D. - 07/04/2020 3:00 PM CST SUBJECTIVE REASON FOR CONSULT Steph Simmons is a 70 y.o. female who presents for evaluation of Abdominal Pain. She was referred by Roethler, Merrill L, P.A.-C. HISTORY OF PRESENT ILLNESS Ms. Simmons is being seen in consultation today for complaints of abdominal pain. The pain is located in her upper mid abdomen. The pain has been getting better since she was started on Nexium. She does have a history of gastric ulcer, but many years ago. She was also recently admitted to [facility] with a small bowel obstruction. Since that time, her stools have been more loose. No fevers. No nausea or vomiting. The following portions of the patient's history were reviewed and updated as appropriate: allergies,current medications, family history, medical history, social history, surgical history and problem list. REVIEW OF SYSTEMS Pertinent items are noted in HPI; all other review of systems was negative. OBJECTIVE Pulse 100 Resp 16 PHYSICAL EXAM General appearance: alert, oriented, and no acute distress. Eyes: anicteric sclera Abdomen: soft, non-distended, well healed lower abdominal incision sites. Mild pain with palpation in epigastrium, no peritonitis Diagnostics Leukocytes Date Value Ref Range Status 08/02/2014 5.1 3.4 - 10.5 X109L Final Hemoglobin Date Value Ref Range Status 08/02/2014 13.3 12.0 - 15.5 GDL Final Hematocrit Date Value Ref Range Status 08/02/2014 39.8 34.9 - 44.5 Final MCV Date Value Ref Range Status 08/02/2014 95.7 82.0 - 98.0 FL Final Platelet Count Date Value Ref Range Status 08/02/2014 257 150 - 450 X109L Final ASSESSMENT / PLAN 70 yr old female with recent SBO with epigastric abdominal pain and diarrhea #1 Reflux Esophageal #2 Obstruction Intestinal (HCC) I discussed with Steph that I feel she likely has gastritis from her recent SBO. I recommend she continue with Nexium, as prescribed. Provided this pain continues to improve, EGD will not be needed. As for her diarrhea, this should also improve with time. I suspect her bowels are still recovering from recent SBO. Follow up with me as needed. Kendell Rodriguez M.D. AGENT documented in this encounter Plan of Treatment Upcoming Encounters Date Type Specialty Care Team Description 03/25/2022 Office Visit Family Medicine Leslie Gonzalez M.D. [address] [facility] [place] [phone] (Wo rk) documented as of this encounter Visit Diagnoses Diagnosis Reflux Esophageal Obstruction Intestinal (HCC) documented in this encounter Care Teams Launch Engineer Relationship Specialty Start Date End Date Merrill Bee P.A.-C. PCP - General 11/18/16 [address] [place] [phone] documented as of this encounter
--- OUTSIDE RECORDS SUMMARY | 2022-03-22 15:46 | XMS_ITS | Encounter Summary ---
:1950 Author Organization [facility] Address [address] [place] [address] Care Team Providers Name Role Phone Merrill Bee P.A.-C. Primary Care Provider [phone] Reason for Referral Outpatient (Routine) - Closed Specialty Diagnoses / Procedures Referred By Contact Refer red To Contact Diagnoses Edema Leg Alcohol Moderate Or Severe Use Disorder (Dependence) Uncomplicated (HCC) Garfield Serrato [facility] Procedures US Abdomen Alena Lopez M.D. [address] [place] [phone] Referral ID Status Reason Start Date Expiration Date Visits Requ ested Visits Authorized [id number] Closed 12/10/2020 12/10/2021 1 1 Reason for Visit Reason Comments Foot Swelling both feet and ankles are swo llen- been going on for about a week now- Appointment Request (Routine) - Closed Specialty Diagnoses / Procedures Referred By Contact Refer red To Contact Family Medicine Referral ID Status Reason Start Date Expiration Date Visits Requ ested Visits Authorized [id number] Closed 12/09/2020 12/09/2021 1 1 Encounter Details Date Type Department Care Team Description 12/10/2020 Office Visit Department of Family Garfield Serrato Leg (Primary Dx); Medicine, John Bang, Alcohol Moderate Or Severe Use Disorder (Dependence) Uncomplicated (HCC) Clinic, in [place] [address] [facility] [address] [place] [phone] Social History Tobacco Use Types Packs/Day Years Used Date Smoking Tobacco: Former Cigarettes Quit : 1993 Smokeless Tobacco: Never Alcohol Use Standard Drinks/Week Comments Yes 16 (1 standard drink = 0.6 oz pure 2-3 d rinks every night (mixed drink alcohol) or wine) Alcohol Habits Answer Date Recorded How often do you have a drink containing 4 or more times a w citizen potawatomi 10/05/2021 alcohol? How many drinks containing [...] or relatives? How often do you attend taoism or 1 to 4 times per year 07/2021 buddhism services? Do you belong to any clubs or Yes 10/05/2021 organizations such as taoism groups, unions, fraternal or athletic groups, or [...] have completed or the highest Faustina, MEd, BALER, GIORGIO) degree you have received? Sex Assigned at Date Recorded Female 03/07/2018 9:31 AM CDT documented as of this encounter Last Filed Vital Signs Vital Sign Reading Time Taken Comments Blood Pressure 145/72 12/10/2020 3:35 PM CDT Pulse 96 12/10/2020 3:35 PM CDT Temperature 36.6 ??C (97.9 ??F) 12/10/2020 3:31 PM CDT Respiratory Rate 16 12/10/2020 3:31 PM CDT Oxygen Saturation - - Inhaled Oxygen Concentration - - Weight 99 kg (218 lb 5.9 oz) 12/10/2020 3:31 PM CDT Height 168 cm (5' 6.14) 12/10/2020 3:31 PM CDT Body Mass Index 35.09 12/10/2020 3:31 PM CDT documented in this encounter Progress Notes Garfield Serrato M.B.B.S., M.D. - 12/10/2020 3:45 PM CDT SUBJECTIVE CHIEF COMPLAINT / REASON FOR VISIT Steph Smimons is a 70 y.o. female who presents for evaluation of Foot Swelling (both feet and ankles are swollen- been going on for about a week now-). HISTORY OF PRESENT ILLNESS Steph Simmons is a 70-year-old female here with 1 week of swelling involving her ankles and legs. Although she has a history of hypertension, she has been consistent on lisinopril. She denies any history of heart failure. He denies any urinary symptoms. She denies PND, orthopnea, chest pain or palpitations. She does haveoccasional shortness of breath and exertional dyspnea. Patient reports taking at least 3 alcoholic drinks daily. She denies any jaundice or abdominal discomfort. She denies nausea or vomiting. The following portions of the patient's history were reviewed and updated as appropriate: allergies,current medications, family history, medical history, social history, surgical history and problem list. REVIEW OF SYSTEMS Pertinent items are noted in HPI. OBJECTIVE BP 145/72 (BP Location: Left arm, Patient Position: Sitting, Cuff Size: Large) Pulse 96 Temp 36.6 ??C (Temporal) Resp 16 Ht 168 cm Wt 99 kg BMI 35.09 kg/m?? PHYSICAL EXAM General Appearance: healthy, alert, no distress, cooperative. Skin: skin color, texture, turgor normal, no suspicious rashes or lesions. Head: normocephalic, no masses, lesions, tenderness or abnormalities. Eyes: Anicteric sclera. Pupils are equally round and reactive to light. Extraocular movements are intact. Neck: Supple, no adenopathy; thyroid symmetric, normal size, no bruits. Lungs: clear to auscultation. Heart: RRR without murmur, gallop, or rubs. Extremities: 2+ bilateral lower extremity edema extending to the mid caballero. Musculoskeletal: Range of motion normal in hips, knees, shoulders, and spine. ASSESSMENT / PLAN #1 Edema Leg #2 Alcohol Moderate Or Severe Use Disorder (Dependence) Uncomplicated (HCC) 70-year-old female here with bilateral lower extremity edema. Kidney function checked in September showed no significant abnormalities. Alcohol history is significant. Will check her liver function and do an ultrasound as well. Will also do a BMP and check kidney function. For now, will manage her with compression stockings and encourage her to elevate her legs for 7-9 hours a day. documented in this encounter Miscellaneous Notes Result Encounter Note - Garfield Serrato M.B.B.S., M.D. - 12/10/2020 7:09 PM CDT I called Ms Simmons about her potassium result which might be spurious. I did leave a voicemail asking her to go to the ER immediately to be evaluated. Please call and confirm that she has been evaluated in the ER. documented in this encounter Plan of Treatment Upcoming Encounters Date Type Specialty Care Team Description 03/25/2022 Office Visit Family Medicine Leslie Gonzalez M.D. [address] [place] [phone] (Wo rk) documented as of this encounter Procedures Procedure Name Priority Date/Time Associated Comments Diagnosis NT-PRO B-TYPE Routine 12/10/2020 4:22 PM Edema Leg Results for this NATRIURETIC PEPTIDE CDT procedur e are in (BNP), S the results section. COMPREHENSIVE Routine 12/10/2020 4:22 PM Edema Leg Results for this METABOLIC PANEL, S/P CDT procedu re are in the results section. documented in this encounter Results US Abdomen [...] liver. Garfield Lopez M.D. IMG US PROCEDURES (ABNORMAL) Comprehensive Metabolic Panel (12/10/2020 4:22 PM CDT) Analysis Performed At Patho logist Time Signature Potassium, P 6.0 (CH) 3.6 - 5.2 12/10/2020 [facility] mmol/L 6:43 PM CDT Sodium, P 135 135 - 145 12/10/2020 [facility] mmol/L 6:37 PM CDT Chloride, P 99 98 - 107 12/10/2020 [facility] mmol/L 6:37 PM CDT Bicarbonate, P 26 22 - 29 12/10/2020 [facility] mmol/L 6:37 PM CDT Anion Gap, P 10 7 - 15 12/10/2020 [facility] 6:37 PM CDT BUN (Blood Urea 29 (H) 6 - 21 12/10/2020 [facility] Nitrogen), P mg/dL 6:37 PM CDT Creatinine 1.01 0.59 - 12/10/2020 [facility] 1.04 mg/dL 6:37 PM CDT eGFR-Black/Afri 64 >=60 12/10/2020 [facility] can Cymraes mL/min/BSA 6:37 PM CDT Comment: ----ADDITIONAL INFORMATION---- Estimated GFR calculated using the 2009 CKD_EPI creatinine equation. eGFR Non-Black/ 56 (L) >=60 mL/min/BSA 12/10/2020 6:37 PM CDT [facility] [place] Comment: ----ADDITIONAL INFORMATION---- Estimated GFR calculated using the 2009 CKD_EPI creatinine equation. Calcium, Total, P 9.7 8.8 - 10.2 mg/dL 12/10/2020 6:37 PM CDT [facility] Glucose, P 108 70 - 140 mg/dL 12/10/2020 6:37 PM CDT O ROGERIO Protein, Total, P 7.0 6.3 - 7.9 g/dL 12/10/2020 6:37 P M CDT [facility] Albumin, P 4.5 3.5 - 5.0 g/dL 12/10/2020 6:37 PM CDT O ROGERIO Aspartate Aminotransferase 26 8 - 43 U/L 12/10/2020 6 :37 PM CDT [facility] (AST), P Alkaline Phosphatase, P 82 35 - 104 U/L 12/10/2020 6: 37 PM CDT [facility] Alanine Aminotransferase (ALT), 32 7 - 45 U/L 021 6:37 PM CDT [facility] P Bilirubin, Total, P 0.4 <=1.2 mg/dL 12/10/2020 6:37 PM CDT [facility] Specimen Anatomical Collection Method Collection Time Receive d Time (Source) Location / / Volume Laterality Blood (Blood, 12/10/2020 4:22 PM 12/11/19 21 6:09 Venous) CDT PM CDT Garfield Lopez M.D. LAB BLOOD ADD-ON Performing Organization Address City/State/ZIP Code Phon e Number [facility] [address] [place] [address] [place] [address] System in [place] [address] NT-Pro B-Type Natriuretic Peptide (BNP) (12/10/2020 4:22 PM CDT) P athologist Signature NT-Pro BNP 52 <=214 pg/mL 12/10/2020 [facility] 6:37 PM CDT Comment: NT-proBNP values less than 300 pg/mL hav e a 99% negative predictive value for excluding acute congestive heart viviana lure. A cutoff of 1200 pg/mL for patients with an eGFR<60 yields a diagno stic sensitivity and specificity of 89% and 72% for acute congestive heart f ailure. ??A diagnostic NT-proBNP cutoff of 900 pg/mL has been suggested i n adults 50-75 years of age in the absence of renal failure. Biotin has been identified by the jessica sherman as a potential interfering substance. ??Higher concentr ations of biotin may be found in multivitamins, hair/nail supple ments, and workout supplements. ??If the result does not [facility] clinical observations, repeat testing after patient refrains fr om the use of supplements for at least 12 hours. Specimen Anatomical Collection Method Collection Time Receive d Time (Source) Location / / Volume Laterality Blood (Blood, 12/10/2020 4:22 PM 12/11/19 21 6:09 Venous) CDT PM CDT Garfield Lopez M.D. LAB BLOOD ADD-ON Performing Organization Address City/State/ZIP Code Phon e Number [facility] [address] [place] [address] [place] [address] System in [place] [address] [facility] documented in this encounter Visit Diagnoses Diagnosis Edema Leg - Primary Alcohol Moderate Or Severe Use Disorder (Dependence) Uncomplicated (HCC) Edema Leg Alcohol Moderate Or Severe Use Disorder (Dependence) Uncomplicated (HCC) documented in this encounter Care Teams After School Tutor Relationship Specialty Start Date End Date Merrill Bee P.A.-C. PCP - General 11/18/16 [address] [place] [phone] documented as of this encounter
--- OUTSIDE RECORDS SUMMARY | 2022-03-22 15:46 | XMS_ITS | Encounter Summary ---
:1950 Author Organization [facility] Address [address] [place] [address] Care Team Providers Name Role Phone Merrill Bee P.A.-C. Primary Care Provider [phone] Encounter Details Date Type Department Care Team Description 10/01/2020 Hospital Encounter Department of Rizwan Bee Kngreta e Left; Radiology in [place]uardo Momin Cyst Campa's Left [place], [place] [address] [facility] [address] [place] [phone] Social History Tobacco Use Types Packs/Day Years Used Date Smoking Tobacco: Former Cigarettes Quit : 1993 Smokeless Tobacco: Never Alcohol Use Standard Drinks/Week Comments Yes 16 (1 standard drink = 0.6 oz pure alcoh ol) Alcohol Habits Answer Date Recorded How often do you have a drink containing 4 or more times a w [place] 10/05/2021 alcohol? How many drinks containing [...] or relatives? How often do you attend yazidi or 1 to 4 times per year 07/2021 episcopalian services? Do you belong to any clubs or Yes 10/05/2021 organizations such as yazidi groups, unions, fraternal or athletic groups, or school groups? How often do you attend meetings of the More than 4 times [facility] year 10/05/2021 clubs or organizations you [...] have completed or the highest Faustina, MEd, SENIOR MEDICAL TRANSCRIPTIONIST, GIORGIO) degree you have received? Sex Assigned [...] TAKE 1 TABLET BY 270 tablet 3 0 10/06/2020 25 mg tablet MOUTH THREE TIMES DAILY NEEDED FOR DIZZINESS documented as of this encounter Plan of Treatment Upcoming Encounters Date Type Specialty Care Team Description 03/25/2022 Office Visit Family Medicine Leslie Gonzalez M.D. [address] [place] [phone] (Wo rk) documented as of this encounter Procedures Procedure Name Priority Date/Time Associated Comments Diagnosis DX KNEE LEFT RAD - Routine 10/01/2020 1:06 Pain Knee Left Results for this FLEXION AND (most inpatients PM CDT Cyst Campa's Left proced ure are in PATELLA 4 VIEWS and all the results outpatients) section. documented in this encounter Results DX Knee Left with Flexion and Patella 4 Views (10/01/2020 1:06 PM CDT) Anatomical Region Laterality Modality Lower Extremity, Knee, Musculoskeletal RST LOS, Left Digital Radiography Musculoskeletal ARZ LOS, Muskuloskeletal FLA LOS Specimen (Source) Anatomical Collection Method Collection Time Re ceived Time Location / / Volume Laterality 10/01/2020 1:12 PM CDT Impressions 10/01/2020 1:13 PM CDT Tricompartmental osteoarthritis of the left knee with marginal bony spurring. Mild to moderate loss of media l compartment joint space. No lateral patellar tilt or subluxation. No acute o sseous abnormality. Trace joint effusion/synovitis. Narrative 10/01/2020 1:13 PM CDT EXAM: DX KNEE LEFT FLEXION AND PATELLA 4 VIEWS COMPARISON: 03/16/2016 Procedure Note Nate Benitez M.D. - 10/01/2020Formattin g of this note might be different from the original. EXAM: DX KNEE LEFT FLEXION AND PATELLA 4 VIEWS COMPARISON: 03/16/2016 IMPRESSION: Tricompartmental osteoarthritis of the l eft knee with marginal bony spurring. Mild to moderate loss of media l compartment joint space. No lateral patellar tilt or subluxation. No acute o sseous abnormality. Trace joint effusion/synovitis. Merrill Bee P.A.-C. IMG DIAGNOSTIC IMAGING PROCE DURMONET documented in this encounter Visit Diagnoses Diagnosis Pain Knee Left Cyst Campa's Left documented in this encounter Care Teams Construction Tech Relationship Specialty Start Date End Date Merrill Bee P.A.-C. PCP - General 11/18/[address] [place] [phone] documented as of this encounter
--- OUTSIDE RECORDS SUMMARY | 2022-03-22 15:46 | XMS_ITS | Encounter Summary ---
:1950 Author Organization [facility] Address [address] [place] [address] Care Team Providers Name Role Phone Merrill Bee.A.-CGiovany Primary Care Provider [phone] Reason for Referral Outpatient (Routine) - Closed Specialty Diagnoses / Procedures Referred By Contact Refer red To Contact Diagnoses Primary Osteoarthritis Knee Left Pain Knee Left Cyst Capma's Left Walt Landrum M.D. [facility] Region Procedures bxn-otql-nxxirweg-elbow arthrocentesis: L knee joint [address] [place] [address] Referral ID Status Reason Start Date Expiration Date Visits Requ ested Visits Authorized [id number] Closed 10/08/2020 10/08/2021 1 1 Reason for Visit Reason Comments Pain Outpatient (Routine) - Closed Specialty Diagnoses / Procedures Referred By Contact Refer red To Contact Orthopedic Surgery Diagnoses Pain Knee Left Cyst Campa's Left Merrill Bee [facility] [place] [facility] P.A.-C. [address] [place] [address] Referral ID Status Reason Start Date Expiration Date Visits Requ ested Visits Authorized [id number] Closed 10/01/2020 10/01/2021 1 1 Encounter Details Date Type Department Care Team Description 10/08/2020 Comprehensive Visit Department of Lucita, Primary Osteoarthritis Knee Left (Primary Dx); Orthopedic Surgery Walt Baxter M.D. Pain Knee Left; in [place], [address] Cyst Campa's L eft [address] [place] [phone] Social History Tobacco Use Types Packs/Day Years Used Date Smoking Tobacco: Former Cigarettes Quit : 1993 Smokeless Tobacco: Never Alcohol Use Standard Drinks/Week Comments Yes 16 (1 standard drink = 0.6 oz pure alcoh ol) Alcohol Habits Answer Date Recorded How often do you have a drink containing 4 or more times a w [place] 10/05/2021 alcohol? How many drinks containing alcohol [...] have completed or the highest Faustina, MEd, DARK ROOM ATTENDANT, GIORGIO) degree you have received? Sex Assigned at Date Recorded Female 03/07/2018 9:31 AM CDT documented as of this encounter Last Filed Vital Signs Vital Sign Reading Time Taken Comments Blood Pressure - - Pulse - - Temperature - - Respiratory Rate - - Oxygen Saturation - - Inhaled Oxygen Concentration - - Weight 95.9 kg (211 lb 8.5 oz) 10/08/2020 12:44 PM CDT Height 168 cm (5' 6.14) 10/08/2020 12:44 PM CDT Body Mass Index 34 10/08/2020 12:44 PM CDT documented in this encounter Procedure Notes Walt Landrum M.D. - 10/08/2020 1:15 PM CDTAssociated Order(s): too-qfrf-vccmcfmg-elbow arthrocentesis: L knee joint Post-Procedure Diagnose(s): Primary Osteoarthritis Knee Left; Pain Knee Left; Cyst Campa's Left Knee site- L knee joint : injection only Date/Time: 10/08/2020 12:48 PM Performed by: Walt Landrum M.D. Authorized by: Walt Landrum M.D. PROCEDURE DETAILS Procedure Location knee Knee site: L knee joint Site prep: patient was prepped and draped in usual sterile fashion Patient position: seated Procedural approach: anterolateral Procedure performed: injection only Needle gauge: 21 G Procedural Medication The following medications were administered at the target site(s) Local anesthetic: 8 mL lidocaine 10 mg/mL (1 %) Corticosteroid: 40 mg triamcinolone acetonide 40 mg/mL CONSENT Consent obtained: written UNIVERSAL PROTOCOL All [...] pause. PRE-PROCEDURE DETAILS Procedure purpose: therapeutic Indications: Pain Appropriate hand hygiene, gown, cap, mask, protective eyewear, sterile gloves, skin preparation, sterile drape, and strict aseptic technique were utilized as applicable for the procedure: yes Skin preparation: chlorhexidine SEDATION / ANESTHESIA Anesthesia method: none POST-PROCEDURE DETAILS Procedure completed successfully: yes Complications: no apparent complications Discharge instructions: ice area as needed for comfort documented in this encounter Consult Notes Walt Landrum M.D. - 10/08/2020 1:15 PM CDT HPI: Steph is a pleasant 70-year-old female who I am seeing as a new patient today for left knee pain. This has been bothering her for several weeks. She has pain medially and posteriorly. She has a full sensation in the back of her knee. She had some infrequent pain prior to a few weeks ago but nothing this significant. This is interfering with her walking. She has trouble with stairs. She gets stiff whenshe sits for long period of time. Please see Electronic Medical Record for past medical history, medications, allergies, past surgicalhistory, family history, social history, and review of systems. I did personally review all of thesesections. PHYSICAL EXAM: She is a healthy-appearing female no acute distress. Examination of her left knee reveals benign skin. She is neurovascular intact. She has significant tenderness over the medial joint line. She has nolateral tenderness. Range of motion 0-130 degrees. She is ligamentously stable. IMAGING: X-rays demonstrate severe degenerative changes of left knee mainly in the medial compartment. ASSESSMENT AND PLAN: Steph is a pleasant 70-year-old female with left knee osteoarthritis. We did discuss options and she elected proceed with a cortisone injection today. documented in this encounter Plan of Treatment Upcoming Encounters Date Type Specialty Care Team Description 03/25/2022 Office Visit Family Medicine Leslie Gonzalez M.D. [address] [place] [phone] (Wo rk) documented as of this encounter Procedures Procedure Name Priority Date/Time Associated Diagnosis Comme nts [place] ARTHCS ASP/INJ Routine 10/08/2020 12:48 Primary Osteoarthri tis Results for this MJR JT WO US PM CDT Knee Left procedure are in Pain Knee Left the results Cyst Campa's Left section. documented in this encounter Results ND ARTHCS ASP/INJ MJR JT WO US (10/08/2020 12:48 PM CDT) Narrative MMODAL - 10/08/2020 12:48 PM CDT Walt Landrum M.D. ? 10/08/2020 12:48 PM Knee site- L knee joint : injection only Date/Time: 10/08/2020 12:48 PM Performed by: Walt Landrum M.D. Authorized by: Walt Landrum M.D. PROCEDURE DETAILS Procedure Location knee Knee site: L knee joint Site prep: patient was prepped and drape d in usual sterile fashion ?? Patient position: seated Procedural approach: anterolateral Procedure performed: injection only Needle gauge: 21 G Procedural Medication The following medications were administe red at the target site(s) Local anesthetic: 8 mL lidocaine 10 mg/m L (1 %) Corticosteroid: 40 mg triamcinolone acet onide 40 mg/mL CONSENT Consent obtained: written UNIVERSAL PROTOCOL All [...] pause. PRE-PROCEDURE DETAILS Procedure purpose: therapeutic Indications: Pain Appropriate hand hygiene, gown, cap, mas k, protective eyewear, sterile gloves, skin preparation, sterile drape, and strict aseptic technique were utilized as applicable for the procedure : yes ?? Skin preparation: chlorhexidine SEDATION / ANESTHESIA Anesthesia method: none POST-PROCEDURE DETAILS Procedure completed successfully: yes Complications: no apparent complications ?? Discharge instructions: ice area as need ed for comfort Walt Landrum M.D. PROCEDURE/MINOR SURGICAL ORD ERABLES Performing Organization Address City/State/ZIP Code Phon e Number MMODAL MMODAL NA documented in this encounter Visit Diagnoses Diagnosis Primary Osteoarthritis Knee Left - Prima ry Pain Knee Left Cyst Campa's Left documented in this encounter Administered Medications Inactive Administered Medications - up to 3 most recent administrations Medication Order MAR Action Action Date Dose Rate Site lidocaine 10 mg/mL (1 %) injection Given 10/08/2020 12:48 PM CDT 8 mL 8 mL (XYLOCAINE) 8 mL, infiltration, One-Time Injection, Starting on Tue10/08/20 at 1248, For 1 dose triamcinolone acetonide injection 40 mg Given 10/08/2020 12:48 P M CDT 40 mg (KENALOG-40) 40 mg, intra-articular, One-Time Injection, Starting on Tue10/08/20 at 1248, For 1 dose documented in this encounter Care Teams Manager Search Relationship Specialty Start Date End Date Merrill Bee P.A.-C. PCP - General 11/18/[address] [place] [phone] documented as of this encounter
--- OUTSIDE RECORDS SUMMARY | 2022-03-22 15:46 | XMS_ITS | Encounter Summary ---
:1950 Author Organization [facility] Address [address] [place] [address] Care Team Providers Name Role Phone Merrill Bee P.A.-C. Primary Care Provider [phone] Reason for Visit Reason Comments Follow-up Discharged from the hospital on 07/09/20 for low B/P and dehydration. [place] feeling fabulous since then. Appointment Request (Routine) - Closed Specialty Diagnoses / Procedures Referred By Contact Refer red To Contact Family Medicine Referral ID Status Reason Start Date Expiration Date Visits Requ ested Visits Authorized [id number] Closed 07/09/2020 07/09/2021 1 1 Encounter Details Date Type Department Care Team Description 07/14/2020 Office Visit Department of Merrill Self Hy pertension Essential Primary (Primary Dx); Medicine, [place] Failure Renal Acute (Acute Kidney Injury ) (HCC) Clinic, [address] [address] [place], [place] [phone] (Work) [phone] Social History Tobacco Use Types Packs/Day Years Used Date Smoking Tobacco: Former Cigarettes Quit : 1993 Smokeless Tobacco: Never Tobacco Cessation: Counseling Given: Yes Alcohol Use Standard Drinks/Week Comments Yes 16 (1 standard drink = 0.6 oz pure alcoh ol) Alcohol Habits Answer Date Recorded How often do you have a drink containing 4 or more times a w [place] 10/05/2021 alcohol? How many drinks containing alcohol [...] of school Master's degree (e.g., M [employer], , 12/01/2018 you have completed or the highest Faustina, MEd, RODEO RIDER, GIORGIO) degree you have received? Sex Assigned at Date Recorded Female 03/07/2018 9:31 AM CDT documented as of this encounter Last Filed Vital Signs Vital Sign Reading Time Taken Comments Blood Pressure 117/79 07/14/2020 10:02 AM TAX LAWYER Pulse 90 07/14/2020 10:02 AM TAX LAWYER Temperature - - Respiratory Rate 16 07/14/2020 10:02 AM TAX LAWYER Oxygen Saturation 100% 07/14/2020 10:02 AM TAX LAWYER Inhaled Oxygen Concentration - - Weight 88.2 kg (194 lb 7.1 oz) 07/14/2020 10:02 AM TAX LAWYER Height 169.4 cm (5' 6.69) 07/14/2020 10:02 AM TAX LAWYER Body Mass Index 30.74 07/14/2020 10:02 AM TAX LAWYER documented in this encounter Progress Notes Merrill Bee P.A.-C. - 07/14/2020 10:00 AM CST CHIEF COMPLAINT / REASON FOR VISIT Steph Simmons is a 70 y.o. female who presents for evaluation of Follow-up (Discharged from the hospital on 07/09/20 for low B/P and dehydration. Stat[place] feeling fabulous since then.). HISTORY OF PRESENT ILLNESS Steph presents today for follow-up of her recent hospitalization. She has history a small-bowel obstruction recently. She has done well and was feeling better but unfortunately she said that she started to feel worse again. She was evaluated in the emergency room and admitted to the hospital on July 08. She was discharged on July 09. She was dehydrated. She received fluid boluses and her creatinine markedly improved and she was feeling significantly better. It was thought that it may have been secondary to her taking hydrochlorothiazide. This was discontinued and she was discharged on lisinopril only. OBJECTIVE Vitals: 07/14/20 1002 BP: 117/79 BP Location: Left arm Patient Position: Sitting Cuff Size: Large Pulse: 90 Resp: 16 SpO2: 100% Weight: 88.2 kg Height: 169.4 cm Body mass index is 30.74 kg/m??. PHYSICAL EXAM In general she appears in no acute distress Heart: Regular rate rhythm no murmurs Lungs: Clear to auscultation IMPRESSION / REPORT / PLAN #1 Hypertension Essential Primary Her blood pressure is much better controlled. I am going to keep her off of the hydrochlorothiazide for now will recheck her metabolic panel today. She is doing much better. If her symptoms worsen or not continue to improve she will let us know #2 Failure Renal Acute (Acute Kidney Injury) (HCC) This has also markedly improved prior to her visit today. Will recheck a metabolic panel today. If she has any further questions or problems she will let us know Merrill Bee P.A.-C. LAWYER documented in this encounter Plan of Treatment Upcoming Encounters Date Type Specialty Care Team Description 03/25/2022 Office Visit Family Medicine Leslie Gonzalez M.D. [address] [place] [phone] ([facility]) documented as of this encounter Procedures Procedure Name Priority Date/Time Associated Diagnosis Comme nts BASIC METABOLIC Routine 07/14/2020 10:55 Hypertension Results for this PANEL, S/P AM TAX LAWYER Essential Primar y procedure are in Failure Renal Acute the resu lts (Acute Kidney Injury) sectio n. (HCC) documented in this encounter Results Basic Metabolic Panel (07/14/2020 10:55 AM TAX LAWYER) P athologist Signature Potassium, P 4.9 3.6 - 5.2 07/14/2020 [place] mmol/L 2:36 PM TAX LAWYER Sodium, P 140 135 - 145 07/14/2020 [place] mmol/L 2:36 PM TAX LAWYER Chloride, P 101 98 - 107 07/14/2020 [place] mmol/L 2:36 PM TAX LAWYER Bicarbonate, P 28 22 - 29 07/14/2020 [place] mmol/L 2:36 PM TAX LAWYER Anion Gap, P 11 7 - 15 07/14/2020 [place] 2:36 PM TAX LAWYER BUN (Blood Urea 13 6 - 21 07/14/2020 [place] Nitrogen), P mg/dL 2:36 PM TAX LAWYER Creatinine 0.92 0.59 - 07/14/2020 [place] 1.04 mg/dL 2:36 PM TAX LAWYER eGFR-Black/Afric 72 >=60 07/14/2020 [place] an [place] mL/min/BSA 2:36 PM TAX LAWYER Comment: ----ADDITIONAL INFORMATION---- Estimated GFR calculated using the 2009 CKD_EPI creatinine equation. eGFR Non-Black/ 62 >=60 mL/min/BSA 2:36 PM TAX LAWYER [facility] Comment: ----ADDITIONAL INFORMATION---- Estimated GFR calculated using the 2009 CKD_EPI creatinine equation. Calcium, Total, P 10.2 8.8 - 10.2 mg/dL 07/14/2020 2:36 PM TAX LAWYER [facility] Glucose, P 127 70 - 140 mg/dL 07/14/2020 2:36 PM TAX LAWYER O ROGERIO Specimen Anatomical Collection Method Collection Time Receive d Time (Source) Location / / Volume Laterality Blood (Blood, 07/14/2020 10:55 07/14/2020 1:50 Venous) AM TAX LAWYER PM TAX LAWYER eMrrill Bee P.A.-C. LAB BLOOD ADD-ON Performing Organization Address City/State/ZIP Code Phon e Number [facility]- [address] [place] [address] [place] [address] System in [place] [address] documented in this encounter Visit Diagnoses Diagnosis Hypertension Essential Primary - Primary Failure Renal Acute (Acute Kidney Injury ) (HCC) documented in this encounter Care Teams Manager Of Data Relationship Specialty Start Date End Date Merrill Bee P.A.-C. PCP - General 11/18/16 [address] [place] [phone] documented as of this encounter
--- OUTSIDE RECORDS SUMMARY | 2022-03-22 15:46 | XMS_ITS | Encounter Summary ---
:1950 Author Organization [facility] Address [address] [place] [address] Care Team Providers Name Role Phone Merrill Bee P.A.-C. Primary Care Provider [phone] Reason for Referral Outpatient (Routine) - Closed Specialty Diagnoses / Procedures Referred By Contact Refer red To Contact Diagnoses Primary Osteoarthritis Knee Left Walt Landrum M.D. [facility] [place] [facility] Procedures ORS Non-Guided aspiration/injection [address] [place] [phone] Referral ID Status Reason Start Date Expiration Date Visits Requ ested Visits Authorized [id number] Closed 11/17/2020 11/17/2021 1 1 Outpatient (Routine) - Closed Specialty Diagnoses / Procedures Referred By Contact Refer red To Contact Diagnoses Primary Osteoarthritis Knee Left Walt Landrum M.D. [facility] [place] [facility] Procedures tfe-cpwp-lobvuxdy-elbow arthrocentesis: L knee joint [address] [place] [address] Referral ID Status Reason Start Date Expiration Date Visits Requ ested Visits Authorized [id number] Closed 11/17/2020 11/17/2021 1 1 Outpatient (Routine) - Closed Specialty Diagnoses / Procedures Referred By Contact Refer red To Contact Diagnoses Primary Osteoarthritis Knee Right Walt Lanrdum M.D. [facility] [place] [facility] Procedures uzl-kvsx-kgjqhfwb-elbow arthrocentesis: R knee joint [address] [place] [address] Referral ID Status Reason Start Date Expiration Date Visits Requ ested Visits Authorized [id number] Closed 11/17/2020 11/17/2021 1 1 Reason for Visit Reason Comments Pain Pain Appointment Request (Routine) - Closed Specialty Diagnoses / Procedures Referred By Contact Refer red To Contact Orthopedic Surgery Referral ID Status Reason Start Date Expiration Date Visits Requ ested Visits Authorized [id number] Closed 11/12/2020 11/12/2021 1 1 Encounter Details Date Type Department Care Team Description 11/17/2020 Office Visit Department of Walt Landrum Primary Os teoarthritis Knee Left (Primary Dx); Orthopedic Surgery in [place] Baxter Pain Knee Right; [place], [place] [address] Primary Osteoarthritis Knee Right [address] [place] [phone] Social History Tobacco Use Types Packs/Day Years Used Date Smoking Tobacco: Former Cigarettes Quit : 1993 Smokeless Tobacco: Never Alcohol Use Standard Drinks/Week Comments Yes 16 (1 standard drink = 0.6 oz pure alcoh ol) Alcohol Habits Answer Date Recorded How often do you have a drink containing 4 or more times a w [place] 10/05/2021 alcohol? How many drinks containing alcohol [...] have completed or the highest Faustina, MEd, OPTIC FIBRE DRAWER, GIORGIO) degree you have received? Sex Assigned at Date Recorded Female 03/07/2018 9:31 AM CDT documented as of this encounter Procedure Notes Walt Landrum M.D. - 11/17/2020 3:30 PM CDTAssociated Order(s): bmx-tijz-smagrwkz-elbow arthrocentesis: R knee joint Post-Procedure Diagnose(s): Primary Osteoarthritis Knee Right Knee site- R knee joint : injection only Date/Time: 11/17/2020 3:15 PM Performed by: Walt Landrum M.D. Authorized by: Walt Landrum M.D. PROCEDURE DETAILS Procedure Location knee Knee site: R knee joint Site prep: patient was prepped and draped in usual sterile fashion Patient position: seated Procedural approach: anterolateral Procedure performed: injection only Needle gauge: 21 G Procedural Medication The following medications were administered at the target site(s) Local anesthetic: 8 mL lidocaine (PF) 10 mg/mL (1 %) Corticosteroid: 40 mg [...] instructions: ice area as needed for comfort Walt Landrum M.D. - 11/17/2020 3:30 PM CDTAssociated Order(s): ijf-yibx-ezvrqdfj-elbow arthrocentesis: L knee joint Post-Procedure Diagnose(s): Primary Osteoarthritis Knee Left Knee site- L knee joint : injection only Date/Time: 11/17/2020 3:16 PM Performed by: Walt Landrum M.D. Authorized [...] pause. PRE-PROCEDURE DETAILS Procedure purpose: therapeutic Indications: L knee DJD Appropriate hand hygiene, gown, cap, mask, protective eyewear, sterile gloves, skin preparation, sterile drape, and strict aseptic technique were utilized as applicable for the procedure: yes Skin preparation: chlorhexidine SEDATION / ANESTHESIA Anesthesia method: none POST-PROCEDURE DETAILS Procedure completed successfully: yes Complications: no apparent complications Discharge instructions: ice area as needed for comfort documented in this encounter Consult Notes Walt Landrum M.D. - 11/17/2020 3:30 PM CDT HPI: Steph is a pleasant 70-year-old female comes in today for evaluation of bilateral knee pain. We saw her a little over a month ago for left knee pain gave her a cortisone injection. The injection worked very well but wore off after a few weeks. Her pain is now back. Her right knee is also hurting her infeels very similar. Please see Electronic Medical Record for past medical history, medications, allergies, past surgicalhistory, family history, social history, and review of systems. I did personally review all of thesesections. PHYSICAL EXAM: She is a healthy-appearing female no acute distress. Examination bilateral knees reveals benign skin. She has significant tenderness palpation over medial joint line especially the left knee. She has no lateral tenderness. She has 0-130 degrees of range of motion. She is ligamentously stable. IMAGING: X-rays again demonstrate severe osteoarthritis of her left knee with complete collapse of medial joint space. She has significant subchondral sclerosis and osteophyte formation. Right knee demonstratesminimal degenerative change. ASSESSMENT AND PLAN: Steph is a pleasant 70-year-old female with mild right knee osteoarthritis and severe left knee osteoarthritis. We did perform a cortisone injection her right knee. He regards her left knee, she has failed physical therapy, multiple NSAIDs, cortisone injections. I think she is an excellent candidate for a Synvisc series injections which we initiated today. documented in this encounter Plan of Treatment Upcoming Encounters Date Type Specialty Care Team Description 03/25/2022 Office Visit Family Medicine Leslie Gonzalez M.D. [address] [place] [phone] (Wo rk) documented as of this encounter Procedures Procedure Name Priority Date/Time Associated Diagnosis Comme nts [place] ARTHCS ASP/INJ Routine 11/17/2020 3:16 PM Primary Osteoarth ritis Results for this MJR JT WO US CDT Knee Left procedure are i n the results section. UT ARTHCS ASP/INJ Routine 11/17/2020 3:15 PM Primary Osteoarth ritis Results for this MJR JT WO US CDT Knee Right procedure are i n the results section. documented in this encounter Results UT ARTHCS ASP/INJ MJR JT WO US (11/17/2020 3:16 PM CDT) Narrative MMODAL - 11/17/2020 3:16 PM CDT Walt Landrum M.D. ? 11/17/2020 ??3:28 PM Knee site- L knee joint : injection only Date/Time: 11/17/2020 3:16 PM Performed by: Walt Landrum M.D. Authorized [...] pause. PRE-PROCEDURE DETAILS Procedure purpose: therapeutic Indications: L knee DJD Appropriate hand hygiene, gown, cap, mas k, [...] Code Phon e Number MMODAL MMODAL NA UT ARTHCS ASP/INJ MJR JT WO US (11/17/2020 3:15 PM CDT) Narrative MMODAL - 11/17/2020 3:15 PM CDT Walt Landrum M.D. ? 11/17/2020 ??3:28 PM Knee site- R knee joint : injection only Date/Time: 11/17/2020 3:15 PM Performed by: Walt Landrum M.D. Authorized by: Walt Landrum M.D. PROCEDURE DETAILS Procedure Location knee Knee site: R knee joint Site prep: patient was prepped and drape d in usual sterile fashion ?? Patient position: seated Procedural approach: anterolateral Procedure performed: injection only Needle gauge: 21 G Procedural Medication The following medications were administe red at the target site(s) Local anesthetic: 8 mL lidocaine (PF) 10 mg/mL (1 %) Corticosteroid: 40 mg triamcinolone acet [...] Knee Left - Prima ry Pain Knee Right Primary Osteoarthritis Knee Right documented in this encounter Administered Medications Inactive Administered Medications - up to 3 most recent administrations Medication Order MAR Action Action Date Dose Rate Site hylan g-f 20 injection 16 mg Given 11/17/2020 3:16 PM CDT 16 mg (SYNVISC) 16 mg, intra-articular, One-Time Injection, Starting on Tue11/17/20 at 1516, For 1 dose lidocaine (PF) 10 mg/mL (1 %) injection 8 mL Given 11/17/2020 3: 15 PM CDT 8 mL (XYLOCAINE) 8 mL, infiltration, One-Time Injection, Starting on Tue11/17/20 at 1515, For 1 dose triamcinolone acetonide injection 40 mg Given 11/17/2020 3:15 PM CDT 40 mg (KENALOG-40) 40 mg, intra-articular, One-Time Injection, Starting on Tue11/17/20 at 1515, For 1 dose documented in this encounter Care Teams Real Estate Developer Relationship Specialty Start Date End Date Merrill Bee P.A.-C. PCP - General 11/18/[address] [place] [phone] documented as of this encounter
--- OUTSIDE RECORDS SUMMARY | 2022-03-22 15:46 | XMS_ITS | Encounter Summary ---
:1950 Author Organization [facility] Address [address] [place] [address] Care Team Providers Name Role Phone Merrill Bee P.A.-C. Primary Care Provider [phone] Reason for Visit Reason Comments COVID Inquiry Encounter Details Date Type Department Care Team Description 12/11/2020 Clinical Communication Department of [facility], in [address] [address] [place], [place] [phone] (Work) [phone] Social History Tobacco Use Types Packs/Day Years Used Date Smoking Tobacco: Former Cigarettes Quit : 1993 Smokeless Tobacco: Never Alcohol Use Standard Drinks/Week Comments Yes 16 (1 standard drink = 0.6 oz pure 2-3 d rinks every night (mixed drink alcohol) or wine) Alcohol Habits Answer Date Recorded How often do you have a drink containing 4 or more times a w [place] 10/05/2021 alcohol? How many drinks containing alcohol [...] or relatives? How often do you attend holiness or 1 to 4 times per year 07/2021 hindu services? Do you belong to any clubs or Yes 10/05/2021 organizations such as holiness groups, unions, fraternal or athletic groups, or [...] have completed or the highest Faustina, MEd, INSURANCE SALESPERSON, GIORGIO) degree you have received? Sex Assigned at Date Recorded Female 03/07/2018 9:31 AM CDT documented as of this encounter Miscellaneous Notes Telephone Encounter - Skylar Elmore - 12/11/2020 9:38 AM CDT What is the purpose of the call?: Standard Appointment Process Standard Appointment Process Have you tested positive for COVID-19 in the last 20 days OR do you have a pending COVID-19 test because you had symptoms?: No, neither apply What region is the appointment being requested?: Less than 14 days [place] In the past 14 days are any [...] sending patient for testing in [facility] or [facility], route encounter to the correct testing pool. documented in this encounter Plan of Treatment Upcoming Encounters Date Type Specialty Care Team Description 03/25/2022 Office Visit Family Medicine Leslie Gonzalez M.D. [address] [place] [phone] (Wo rk) documented as of this encounter Visit Diagnoses Not on filedocumented in this encounter Care Teams Chief Operations Officer Relationship Specialty Start Date End Date Merrill Bee P.A.-C. PCP - General 11/18/[address] [place] [phone] documented as of this encounter
--- OUTSIDE RECORDS SUMMARY | 2022-03-22 15:46 | XMS_ITS | Encounter Summary ---
:1950 Author Organization [facility] Address [address] [place] [address] Care Team Providers Name Role Phone Merrill Bee P.A.-C. Primary Care Provider [phone] Encounter Details Date Type Department Care Team Description 12/08/2020 Patient Self-Triage CONNECTED CARE Symptom Tool Room Machinist, Provider Social History Tobacco Use Types Packs/Day Years Used Date Smoking Tobacco: Former Cigarettes Quit : 1993 Smokeless Tobacco: Never Alcohol Use Standard Drinks/Week Comments Yes 16 (1 standard drink = 0.6 oz pure alcoh ol) Alcohol Habits Answer Date Recorded How often do you have a drink containing 4 or more times a w [place] 10/05/2021 alcohol? How many drinks containing alcohol [...] 1 to 4 times per year 07/2021 rastafari services? Do you belong to any clubs [...] have completed or the highest Faustina, MEd, DERRICK BOAT CAPTAIN, GIORGIO) degree you have received? Sex Assigned at Date Recorded Female 03/07/2018 9:31 AM CDT documented as of this encounter Plan of Treatment Upcoming Encounters Date Type Specialty Care Team Description 03/25/2022 Office Visit Family Medicine Leslie Gonzalez M.D. [address] [place] [phone] (Wo rk) documented as of this encounter Visit Diagnoses Not on filedocumented in this encounter Care Teams Circus Laborer Relationship Specialty Start Date End Date Merrill Bee P.A.-C. PCP - General 11/18/16 [address] [place] [phone] documented as of this encounter
--- OUTSIDE RECORDS SUMMARY | 2022-03-22 15:46 | XMS_ITS | Encounter Summary ---
:1950 Author Organization [facility] Address [address] [place] [address] Care Team Providers Name Role Phone Merrill Bee P.A.-C. Primary Care Provider [phone] Encounter Details Date Type Department Care Team Description 07/31/2020 Orders Only [facility] Sa dominique Gray M.D. [address] [place], [place] [phone] (Wo rk) Social History Tobacco Use Types Packs/Day Years Used Date Smoking Tobacco: Former Cigarettes Quit : 1993 Smokeless Tobacco: Never Alcohol Use Standard Drinks/Week Comments Yes 16 (1 standard drink = 0.6 oz pure alcoh ol) Alcohol Habits Answer Date Recorded How often do you have a drink containing 4 or more times a w [place] 10/05/2021 alcohol? How many drinks containing alcohol [...] have completed or the highest Faustina, MEd, LINER CHECKER, GIORGIO) degree you have received? Sex Assigned at Date Recorded Female 03/07/2018 9:31 AM CDT documented as of this encounter Plan of Treatment Upcoming Encounters Date Type Specialty Care Team Description 03/25/2022 Office Visit Family Medicine Leslie Gonzalez M.D. [address] [place] [phone] (Wo rk) documented as of this encounter Visit Diagnoses Not on filedocumented in this encounter Care Teams Estate Planning Attorney Relationship Specialty Start Date End Date Merrill Bee P.A.-C. PCP - General 11/18/[address] [place] [phone] documented as of this encounter
--- OUTSIDE RECORDS SUMMARY | 2022-03-22 15:46 | XMS_ITS | Encounter Summary ---
:1950 Author Organization [facility] Address [address] [place] [address] Care Team Providers Name Role Phone Merrill Bee P.A.-C. Primary Care Provider [phone] Reason for Referral Outpatient (Routine) - Closed Specialty Diagnoses / Procedures Referred By Contact Refer red To Contact Orthopedic Surgery Diagnoses Pain Knee Left Cyst Campa's Left Merrill Bee [facility] [address] [place] [phone] Referral ID Status Reason Start Date Expiration Date Visits Requ ested Visits Authorized [id number] Closed 10/01/2020 10/01/2021 1 1 Scheduling Instructions Ortho internal referral panel order, nino ging before Consult visit Reason for Visit Reason Comments Knee Pain left knee pain going on for over a week, she believes it may be a bakers cyst, she had had one in the right knee. Appointment Request (Routine) - Closed Specialty Diagnoses / Procedures Referred By Contact Refer red To Contact Family Medicine Referral ID Status Reason Start Date Expiration Date Visits Requ ested Visits Authorized [id number] Closed 09/26/2020 09/26/2021 1 1 Encounter Details Date Type Department Care Team Description 10/01/2020 Office Visit Department of Family Merrill Bee Pa in Knee Left (Primary Dx); Medicine, [facility], in [address] [address] [place]KA MATIAS [phone] (Work) [phone] Social History Tobacco Use Types Packs/Day Years Used Date Smoking Tobacco: Former Cigarettes Quit : 1993 Smokeless Tobacco: Never Tobacco Cessation: Counseling Given: Yes Alcohol Use Standard Drinks/Week Comments Yes 16 (1 standard drink = 0.6 oz pure alcoh ol) Alcohol Habits Answer Date Recorded How often do you have a drink containing 4 or more times a w [place] 10/05/2021 alcohol? How many drinks containing alcohol [...] or relatives? How often do you attend jainism or 1 to 4 times per year 07/2021 amish services? Do you belong to any clubs or Yes 10/05/2021 organizations such as jainism groups, unions, fraternal or athletic groups, or [...] place to sleep or slept in a fpc (including now)? Education Answer Date Recorded What is the highest level of school Master's degree (e.g., M Gogo, MS, 12/01/2018 you have completed or the highest Faustina, MEd, RESIDENTIAL INTERIOR DESIGNER, GIORGIO) degree you have received? Sex Assigned at Date Recorded Female 03/07/2018 9:31 AM CDT documented as of this encounter Last Filed Vital Signs Vital Sign Reading Time Taken Comments Blood Pressure 138/63 10/01/2020 12:05 PM CDT Pulse 105 10/01/2020 12:05 PM CDT Temperature 36.8 ??C (98.2 ??F) 10/01/2020 12:05 PM CDT Respiratory Rate 14 10/01/2020 12:05 PM CDT Oxygen Saturation 99% 10/01/2020 12:05 PM CDT Inhaled Oxygen Concentration - - Weight 96.2 kg (212 lb 1.3 oz) 10/01/2020 12:05 PM CDT Height 169.4 cm (5' 6.69) 10/01/2020 12:05 PM CDT Body Mass Index 33.52 10/01/2020 12:05 PM CDT documented in this encounter Progress Notes Merrill Bee P.A.-C. - 10/01/2020 12:00 PM CDT CHIEF COMPLAINT / REASON FOR VISIT Steph Simmons is a 70 y.o. female who presents for evaluation of Knee Pain (left knee pain goingon for over a week, she believes it may be a bakers cyst, she had had one in the right knee. ). HISTORY OF PRESENT ILLNESS Steph presents today with complaints of some left knee pain this been bothering her for the last week or so. She does not recall any specific injury. This has been frustrating for her. She also has some back pain and this has been exacerbated by her limping because of her knee pain. Patient Active Problem List Diagnosis ??? Reflux Esophageal ??? Hypercholesterolemia ??? Neuropathy Peripheral ??? Hypertension Essential Primary ??? Onychomycosis ??? Spinal Stenosis Lumbosacral Region OBJECTIVE Vitals: 10/01/20 1205 BP: 138/63 BP Location: Left arm Patient Position: Sitting Cuff Size: Regular Pulse: 105 Resp: 14 Temp: 36.8 ??C TempSrc: Temporal SpO2: 99% Weight: 96.2 kg Height: 169.4 cm Body mass index is 33.52 kg/m??. PHYSICAL EXAM In general she appears in no acute distress Left knee shows some mild swelling with some discomfort to palpation in the posterior aspect of her left knee. Cyrus sign was mildly positive drawer sign negative. No real tenderness to varus or valgus stress IMPRESSION / REPORT / PLAN #1 Pain Knee Left I discussed a couple different possibilities. Likely she has some internal knee irritation contributing to her Campa's cyst. I am going to do an x-ray and have her follow-up with orthopedics for further recommendations. #2 Cyst Campa's Left Follow-up with orthopedics following her x-ray. She is in agreement with this plan if there is any further questions or problems she will let us know otherwise follow up as scheduled. Total time spent 30 minutes Merrill Bee P.A.-C. documented in this encounter Plan of Treatment Upcoming Encounters Date Type Specialty Care Team Description 03/25/2022 Office Visit Family Medicine Leslie Gonzalez M.D. [address] [place] [phone] (Wo rk) Scheduled Referrals Name Type Priority Associated Order Schedule Diagnoses Orthopedic Surgery - Outpatient Referral Routine Pain Kn ee Left Expected: Knee non surgical Cyst Campa's Left 10/01 consult (clinic) (Approximat e), Expires: 10/02/2023 documented as of this encounter Results DX Knee Left with [...] 03/16/2016 Procedure Note Nate Benitez M.D. - 10/01/2020Formstephanie g of this note might be different [...] encounter Visit Diagnoses Diagnosis Pain Knee Left - Primary Cyst Campa's Left Pain Knee Left Cyst Campa's Left documented in this encounter Care Teams Accounts Receivable Associate Relationship Specialty Start Date End Date Merrill Bee P.A.-C. PCP - General 11/18/[address] [place] [phone] documented as of this encounter
--- OUTSIDE RECORDS SUMMARY | 2022-03-22 15:46 | XMS_ITS | Encounter Summary ---
:1950 Author Organization [facility] Address [address] [place] [address] Care Team Providers Name Role Phone Merrill Bee P.A.-C. Primary Care Provider [phone] Reason for Visit Reason Comments Other dizzy when getting up and lo w blood pressure. Appointment Request (Routine) - Closed Specialty Diagnoses / Procedures Referred By Contact Refer red To Contact Family Medicine Referral ID Status Reason Start Date Expiration Date Visits Requ ested Visits Authorized [id number] Closed 07/08/2020 07/08/2021 1 1 Encounter Details Date Type Department Care Team Description 07/08/2020 Office Visit Department of Family Leslie Gonzalez Diz ziness (Primary Dx); Medicine, [facility]; Clinic, [place] [address] Hypotension; [place], [place] Tachycardia; [address] [phone] Pain Generalized Abdominal; [place], [place] [phone] History Of Fal ling [phone] (Work) [phone] Social History Tobacco Use Types Packs/Day Years Used Date Smoking Tobacco: Former Cigarettes Quit : 1993 Smokeless Tobacco: Never Alcohol Use Standard Drinks/Week Comments Yes 16 (1 standard drink = 0.6 oz pure alcoh ol) Alcohol Habits Answer Date Recorded How often do you have a drink containing 4 or more times a w [place] 10/05/2021 alcohol? How many drinks containing alcohol [...] 10/05/2021 organizations such as pentecostal groups, unions, [employer] or athletic groups, or school groups? How [...] have completed or the highest Faustina, MEd, DATABASE DESIGN ANALYST, GIORGIO) degree you have received? Sex Assigned at Date Recorded Female 03/07/2018 9:31 AM CDT documented as of this encounter Last Filed Vital Signs Vital Sign Reading Time Taken Comments Blood Pressure 88/59 07/08/2020 1:44 PM MERCHANDISE ADJUSTMENT CLERK Pulse 113 07/08/2020 1:44 PM MERCHANDISE ADJUSTMENT CLERK Temperature 36.5 ??C (97.7 ??F) 07/08/2020 1:44 PM MERCHANDISE ADJUSTMENT CLERK Respiratory Rate 16 07/08/2020 1:44 PM MERCHANDISE ADJUSTMENT CLERK Oxygen Saturation 99% 07/08/2020 1:44 PM MERCHANDISE ADJUSTMENT CLERK Inhaled Oxygen Concentration - - Weight 87.2 kg (192 lb 3.9 oz) 07/08/2020 1:44 PM MERCHANDISE ADJUSTMENT CLERK Height 169 cm (5' 6.54) 07/08/2020 1:44 PM MERCHANDISE ADJUSTMENT CLERK Body Mass Index 30.53 07/08/2020 1:44 PM MERCHANDISE ADJUSTMENT CLERK documented in this encounter Progress Notes Leslie Gonzalez M.D. - 07/08/2020 2:00 PM CST Progress Note Steph Simmons is a 70 y.o. female with past medical history of hypertension, GERD, hyperlipidemia,endometriosis s/p hysterectomy and left sided colectomy presented today to the clinic for evaluation of dizziness.She was admitted on June 16 and discharged on June 22 of the small bowel obstruction. Patient stated that she has been feeling dizzy since she was discharged from the hospital. She also admitted to feel tired and fatigue ache. She stated that the dizzy spells happen daily, it happens every time she gets up from sitting position. She stated that she notice it to get worse. She pointed out that she was not taking her blood pressure medicine when she was in the hospital, she s tarted taking it after she was discharged. She noticed her blood pressure to be low this morning at 90/64. She is currently taking lisinopril and hydrochlorothiazide 20/12.5. She stated that she fell once he yesterday but she had no injury. She did not lose her consciousness. She also admitted to have abdominal pain that continued after age to discharge. She stated that the abdominal pain is more in the lower side. She denies any nausea or vomiting. She does have diarrhea that happens usually in themorning when she takes MiraLax. She describes the diarrhea as loose stool, she denies watery diarrhea. She denies blood with the diary. She denies palpitation, chest pain, cough, orthopnea, paroxysmal nocturnal dyspnea, upper or lower extremity weakness or numbness. She lives alone in her house. ?? Allergies Allergen Reactions ??? Amoxicillin Diarrhea ??? Levofloxacin Hives ??? Morphine Hives ??? Piroxicam Other (see comments) swollen hands and feet, ankles ??? Pregabalin Other (see comments) fatigue, edema at high dose Current Outpatient Medications: ??? acetaminophen (TYLENOL) 500 mg tablet, Take 500-1,000 mg by mouth 3 (three) times a day as needed. Take 500-1,000 mg by mouth 3 times daily if needed. Max acetaminophen dose: 4000mg in 24 hours., Disp: , Rfl: ??? atorvastatin (Lipitor) 40 mg tablet, Take 1 tablet (40 mg total) by mouth at bedtime., Disp: 90 tablet, Rfl: 3 ??? B complex-vitamin (for_SUPER B-50) capsule, Take 1 capsule by mouth daily., Disp: , Rfl: ??? CALCIUM CARBONATE/VITAMIN D3 (CALCIUM 600 WITH VITAMIN D3 ORAL), Take by mouth 2 (two) times a day., Disp: , Rfl: ??? CETIRIZINE HCL (CETIRIZINE ORAL), Take by mouth daily., Disp: , Rfl: ??? cholecalciferol, vitamin D3, [...] eyes at bedtime., Disp: , Rfl: ??? lisinopril-hydroCHLOROthiazide (PRINZIDE,ZESTORETIC) 20-12.5 mg per tablet, Take 1 tablet by mouth daily., Disp: 90 tablet, Rfl: 3 ??? magnesium oxide (MAG-OX) 400 mg (241.3 mg magnesium) tablet, Take 400 mg by mouth daily., Disp: , Rfl: ??? meclizine (ANTIVERT) 25 mg tablet, TAKE 1 TABLET BY MOUTH THREE TIMES DAILY NEEDED FOR DIZZINESS, Disp: 270 tablet, Rfl: 3 ??? multivitamin (THERAGRAN) tablet, Take 1 tablet by mouth daily., Disp: , Rfl: ??? ondansetron ODT (ZOFRAN-ODT) 4 mg disintegrating tablet, Place 4 mg under the tongue every 6 (six) hours as needed. Place 1 tablet on the tongue every 6 hours if needed for nausea or vomiting., Disp: , Rfl: ??? polyethylene glycol (MIRALAX) [...] tablet by mouth daily., Disp: , Rfl: No past medical history on file. Social History Socioeconomic History ??? Marital status: Spouse name: Not on file ??? Number of children: Not on file ??? Years of education: Not on file ??? Highest education level: Master's degree (e.g., MA, MS, Faustina, MEd, DATABASE DESIGN ANALYST, GIORGIO) Occupational History ??? Not on file Social Needs ??? Financial resource strain: Not hard at all ??? Food insecurity Worry: Never true Inability: Never true ??? Transportation needs Medical: No Non-medical: No Tobacco Use ??? Smoking status: Former Smoker Quit date: 1993 Years since quittin. ??? Smokeless tobacco: Never Used Substance and Sexual Activity ??? Alcohol use: Yes Alcohol/week: 16.0 standard drinks Types: 7 Glasses of wine, 7 Cans of beer, 2 Standard drinks or equivalent per week Frequency: 4 or more times a week Drinks per session: 3 or 4 Binge frequency: Less than monthly ??? Drug use: Not on file ??? Sexual activity: Not on file Lifestyle ??? Physical activity Days per week: 5 days Minutes per session: 60 min ??? Stress: Only a little Relationships ??? Social connections Talks on phone: Once a week Gets together: Three times a week Attends mormon service: 1 to 4 times per year Active member of club or organization: Yes Attends meetings of clubs or organizations: More than 4 times per year Relationship status: ??? Intimate partner violence Fear of current or ex partner: No Emotionally abused: No Physically abused: No Forced sexual activity: No Other Topics Concern ??? Not on file Social History Narrative ??? Not on file All other systems reviewed and are negative. Vitals: 07/08/20 1344 BP: (!) 88/59 BP Location: Left arm Patient Position: Sitting Cuff Size: Regular Pulse: (!) 113 Resp: 16 Temp: 36.5 ??C TempSrc: Temporal SpO2: 99% Weight: 87.2 kg Height: 169 cm Constitutional Appearance: She is well-developed. HENT Head: Normocephalic and atraumatic. Right Ear: External ear normal. Left Ear: External ear normal. Nose: Nose normal. Eyes Conjunctiva/sclera: Conjunctivae normal. Pupils: Pupils are equal, round, and reactive to light. Neck Musculoskeletal: Normal range of motion and neck supple. Cardiovascular Rate and Rhythm: Normal rate and regular rhythm. Heart sounds: Normal heart sounds. Pulmonary Effort: Pulmonary effort is normal. No respiratory distress. Breath sounds: Normal breath sounds. Abdominal General: Bowel sounds are normal. There is no distension. Palpations: Abdomen is soft. There is no mass. Tenderness: There is no abdominal tenderness. There is no guarding. Comments: Generalized abdominal tenderness with some guarding no rigidity Musculoskeletal Normal range of motion. Skin General: Skin is warm and dry. Neurological Mental Status: She is alert and oriented to person, place, and time. Deep Tendon Reflexes: Reflexes are normal and symmetric. Psychiatric Behavior: Behavior normal. Steph was seen today for other. Diagnoses and all orders for this visit: Dizziness Weakness General Hypotension Tachycardia Pain Generalized Abdominal History Of Falling Patient blood pressure here at the clinic was 88/59, pulse rate is 113. Given her symptoms and vitalsigns I would definitely referred to the ER for further testing and evaluation. I also discussed with her for her safety we need to make sure she is doing fine before with send her home. ER in [facility] called and made aware of patient arrival. Patient agreed to the plan. HANDISE ADJUSTMENT CLERK documented in this encounter Plan of Treatment Upcoming Encounters Date Type Specialty Care Team Description 03/25/2022 Office Visit Family Medicine Leslie Gonzalez M.D. [address] [place] [phone] (Wo rk) documented as of this encounter Visit Diagnoses Diagnosis Dizziness - Primary Weakness General Hypotension Tachycardia Pain Generalized Abdominal History Of Falling documented in this encounter Care Teams Wrapper Selector Relationship Specialty Start Date End Date Merrill Bee P.A.-C. PCP - General 11/18/[address] [place] [phone] documented as of this encounter
--- OUTSIDE RECORDS SUMMARY | 2022-03-22 15:46 | XMS_ITS | Encounter Summary ---
:1950 Author Organization [facility] Address [address] [place] [address] Care Team Providers Name Role Phone Merrill Bee P.A.-C. Primary Care Provider [phone] Encounter Details Date Type Department Care Team Description 11/10/2020 Patient Self-Triage CONNECTED CARE Symptom Tank Bottom Assembler, Provider Social History Tobacco Use Types Packs/Day Years Used Date Smoking Tobacco: Former Cigarettes Quit : 1993 Smokeless Tobacco: Never Alcohol Use Standard Drinks/Week Comments Yes 16 (1 standard drink = 0.6 oz pure alcoh ol) Alcohol Habits Answer Date Recorded How often do you have a drink containing 4 or more times a w [place] 10/05/2021 alcohol? How many drinks containing alcohol [...] or relatives? How often do you attend druze or 1 to 4 times per year 07/2021 evangelical services? Do you belong to any clubs or Yes 10/05/2021 organizations such as druze groups, unions, fraternal or athletic groups, or [...] place to sleep or slept in a care home (including now)? Education Answer Date Recorded What is the highest level of school Master's degree (e.g., M Gogo, MS, 12/01/2018 you have completed or the highest Faustina, MEd, RIDER TICKET WORKER, GIORGIO) degree you have received? Sex Assigned at Date Recorded Female 03/07/2018 9:31 AM CDT documented as of this encounter Plan of Treatment Upcoming Encounters Date Type Specialty Care Team Description 03/25/2022 Office Visit Family Medicine Leslie Gonzalez M.D. [address] [place] [phone] (Wo rk) documented as of this encounter Visit Diagnoses Not on filedocumented in this encounter Care Teams Diagnostic Tech Relationship Specialty Start Date End Date Merrill Bee P.A.-C. PCP - General 11/18/16 [address] [place] [phone] documented as of this encounter
--- OUTSIDE RECORDS SUMMARY | 2022-03-22 15:46 | XMS_ITS | Encounter Summary ---
:1950 Author Organization [facility] Address [address] [place] [address] Care Team Providers Name Role Phone Merrill Bee P.A.-C. Primary Care Provider [phone] Reason for Visit Reason Comments Post Ed Visit Follow-up On 12/10/20 she was seen at [facility], [place] High potassium and tachycardia. She states the she is feeling fine. Appointment Request (Routine) - Closed Specialty Diagnoses / Procedures Referred By Contact Refer red To Contact Family Medicine Referral ID Status Reason Start Date Expiration Date Visits Requ ested Visits Authorized [id number] Closed 12/11/2020 12/11/2021 1 1 Encounter Details Date Type Department Care Team Description 12/15/2020 Office Visit Department of Family Garfield Serrato (Primary Dx); Medicine, Analilia BangSGiovany, [facility], [place] [address] [facility] [address] [place] [phone] Social History Tobacco Use Types Packs/Day Years [...] containing 4 or more times a w [place]lowa dee-ni' 10/05/2021 alcohol? How many drinks containing alcohol [...] 1 to 4 times per year 07/2021 christianity services? Do you belong to any clubs [...] have completed or the highest Faustina, MEd, BOTTLE FILLER, GIORGIO) degree you have received? Sex Assigned at Date Recorded Female 03/07/2018 9:31 AM CDT documented as of this encounter Last Filed Vital Signs Vital Sign Reading Time Taken Comments Blood Pressure 147/71 12/15/2020 3:18 PM CDT Pulse 98 12/15/2020 3:18 PM CDT Temperature 36.6 ??C (97.9 ??F) 12/15/2020 3:14 PM CDT Respiratory Rate 14 12/15/2020 3:14 PM CDT Oxygen Saturation 96% 12/15/2020 3:14 PM CDT Inhaled Oxygen Concentration - - Weight 98.1 kg (216 lb 6.1 oz) 12/15/2020 3:14 PM CDT Height 168 cm (5' 6.14) 12/15/2020 3:14 PM CDT Body Mass Index 34.78 12/15/2020 3:14 PM CDT documented in this encounter Progress Notes Garfield Serrato M.B.B.S., M.D. - 12/15/2020 3:45 PM CDT SUBJECTIVE CHIEF COMPLAINT / REASON FOR VISIT Steph Simmons is a 70 y.o. female who presents for evaluation of Post Ed Visit Follow-up (On 12/10/20 she was seen at [facility], [place] High potassium and tachycardia. She states the she is feeling fine. ). HISTORY OF PRESENT ILLNESS Steph Simmons is a 70-year-old female with a history of hypertension and bilateral lower extremity edema. She was seen last week for leg swelling. Blood work revealed elevated potassium and she wasreferred to the emergency room for follow-up. Repeat potassium was 4.9. EKG showed no significant arrhythmia and she remained symptom free. For her leg swelling, we checked her kidney function and recommended compression stockings with elevation of both legs for 79 hours a day. She is here for follow-up and reports that swelling has improved significantly with this treatment plan. She denies palpitations, chest pain, dizziness or lightheadedness. The following portions of the patient's history were reviewed and updated as appropriate: allergies,current medications, family history, medical history, social history, surgical history and problem list. REVIEW OF SYSTEMS Pertinent items are noted in HPI. OBJECTIVE BP 147/71 (BP Location: Right arm, Patient Position: Sitting, Cuff Size: Large) Pulse 98 Temp 36.6 ??C (Temporal) Resp 14 Ht 168 cm Wt 98.1 kg LMP (LMP Unknown) SpO2 96% No BMI 34.78 kg/m?? PHYSICAL EXAM General Appearance: healthy, alert, no distress, cooperative. Skin: skin color, texture, turgor normal, no suspicious rashes or lesions. Head: normocephalic, no masses, lesions, tenderness or abnormalities. Eyes: Anicteric sclera. Pupils are equally round and reactive to light. Extraocular movements are intact. Lungs: clear to auscultation. Heart: RRR without murmur, gallop, or rubs. Extremities: Trace bilateral lower extremity edema. Musculoskeletal: Range of motion normal in hips, knees, shoulders, and spine. ASSESSMENT / PLAN #1 Edema Leg #2 Hyperkalemia 70-year-old female with a history of bilateral lower extremity edema here for follow-up. BMP revealed stage 3 chronic kidney disease with mild dehydration. We discussed the need for adequate fluid hydration. She has managed her edema with compression stockings and elevation. This seems to be working well. She did follow-up for elevated potassium in the emergency room. Findings were not significant. And she remains asymptomatic. Will continue to monitor. documented in this encounter Plan of Treatment Upcoming Encounters Date Type Specialty Care Team Description 03/25/2022 Office Visit Family Medicine Leslie Gonzalez M.D. [address] [place] [phone] (Wo rk) documented as of this encounter Visit Diagnoses Diagnosis Edema Leg - Primary Hyperkalemia documented in this encounter Care Teams Marketing Manager Relationship Specialty Start Date End Date Merrill Bee P.A.-C. PCP - General 11/18/16 [address] [place] [phone] documented as of this encounter
--- OUTSIDE RECORDS SUMMARY | 2022-03-22 15:47 | XMS_ITS | Encounter Summary ---
:1950 Author Organization [facility] Address [address] [place] [address] Care Team Providers Name Role Phone Merrill Bee P.A.-C. Primary Care Provider [phone] Encounter Details Date Type Department Care Team Description 03/12/2020 Clinical Communication Department of [facility] Merrill Bee, [facility], Preet Marte [facility], in [address] [address] [place], [place] [phone] (Work) [phone] Social History Tobacco Use Types Packs/Day Years Used Date Smoking Tobacco: Former Cigarettes Quit : 1993 Smokeless Tobacco: Never Alcohol Use Standard Drinks/Week Comments Yes 16 (1 standard drink = 0.6 oz pure alcoh ol) Alcohol Habits Answer Date Recorded How often do you have a drink containing 4 or more times a w [place] 10/05/2021 alcohol? How many drinks containing alcohol [...] or relatives? How often do you attend jain or 1 to 4 times per year 07/2021 protestant services? Do you belong to any clubs or Yes 10/05/2021 organizations such as jain groups, unions, fraternal or athletic groups, or school groups? How often do you attend meetings of the More than 4 times r year 10/05/2021 clubs or organizations you [...] completed or the highest Faustina, MEd, MEDICAL CASE WORKER, GIORGIO) degree you have received? Sex Assigned at Date Recorded Female 03/07/2018 9:31 AM CDT documented as of this encounter Miscellaneous Notes Telephone Encounter - Nava Lauren R - 03/12/2020 11:16 AM CDT 1. Is the patient requesting a COVID test only or other appointments? Other Appointments 2. Have you tested positive for COVID-19 in the last 30 days or do you have a pending COVID-19 test because you had symptoms? no 3. In the last 14 days have you had close contact with a lab confirmed positive case of COVID-19 (close contact is defined as a household case of COVID or being within 6 feet of a COVID-19 patient for more than 5 minutes or having direct contact with infectious secretions, e.g., being coughed on)? no 4. In the past 14 days, are any of the following symptoms new to you and not related to an existing health condition? a. Fever greater than or equal to 37.8 C (100.0 F)? no b. New symptoms (Specifically: headache, cough, shortness of breath, respiratory distress, sore throat, diarrhea, nausea, vomiting, chills and repeated shaking with chills, myalgia's (muscle aches), loss of smell, or change or loss of taste sensation)? no 5. Are you having NEW trouble breathing, worsening breathing, or feeling as though you're going to collapse when you stand or sit up? no 6. Have you tested positive for COVID in the last 90 days? no Route reply to: Scheduling Contact Number: [phone] documented in this encounter Plan of Treatment Upcoming Encounters Date Type Specialty Care Team Description 03/25/2022 Office Visit Family Medicine Leslie Gonzalez M.D. [address] [place] [address] [phone] (Wo rk) documented as of this encounter Visit Diagnoses Not on filedocumented in this encounter Care Teams Carpet Weaver Relationship Specialty Start Date End Date Merrill Bee P.A.-C. PCP - General 11/18/[address] [place] [phone] documented as of this encounter
--- OUTSIDE RECORDS SUMMARY | 2022-03-22 15:47 | XMS_ITS | Encounter Summary ---
:1950 Author Organization [facility] Address [address] [place] [address] Care Team Providers Name Role Phone Merrill Bee P.A.-C. Primary Care Provider Reason for Referral Outpatient (Routine) - Closed Specialty Diagnoses / Procedures Referred By Contact Refer red To Contact Diagnoses Screening Cancer Colon Merrill Bee P.A.-C. [address] [place] [phone] Referral ID Status Reason Start Date Expiration Visits Visits Date Requested Authorized [id number] Closed Patient 05/16/2019 05/15/2020 1 1 Preference D PROTECTIVE SERVICES SOCIAL WORKER Reason for Visit Reason Onset Date Comments Colonoscopy Referal 05/15/2019 Encounter Details Date Type Department Care Team Description 05/15/2019 Clinical Communication Department of [facility] in [address] [address] [place], [place] [phone] (Work) [phone] Social History Tobacco Use Types Packs/Day Years Used Date Smoking Tobacco: Former Cigarettes Quit : 1993 Smokeless Tobacco: Never Alcohol Use Standard Drinks/Week Comments Yes 16 (1 standard drink = 0.6 oz pure alcoh ol) Alcohol Habits Answer Date Recorded How often do you have a drink containing 4 or more times a w [place] 10/05/2021 alcohol? How many drinks containing alcohol [...] or relatives? How often do you attend religious or 1 to 4 times per year 07/2021 jainism services? Do you belong to any clubs or Yes 10/05/2021 organizations such as religious groups, unions, [employer] or athletic groups, or school groups? How [...] have completed or the highest Faustina, MEd, ATM SERVICER, GIORGIO) degree you have received? Sex Assigned at Date Recorded Female 03/07/2018 9:31 AM CDT documented as of this encounter Miscellaneous Notes Telephone Encounter - Simona Cheatham L.P.N. - 05/16/2019 12:38 PM CHILD PROTECTIVE SERVICES SOCIAL WORKER faxed referral to flower/Dr Guthrie for colonoscopy D PROTECTIVE SERVICES SOCIAL WORKER Telephone Encounter - Holly Ryan L.P.N. - 05/15/2019 4:19 PM CHILD PROTECTIVE SERVICES SOCIAL WORKER SUBJECTIVE CHIEF COMPLAINT / REASON FOR CALL Colonoscopy Referal Information Discussed Patient notified that Merrill is out of the office today. She said it is okay to wait until he returns. PLAN Disposition/Recommendation: notified provider and awaiting recommendations Information/Education: patient/caller able to teach back Caller agreeable to plan of care: yes The following references were used: nursing clinical judgement D PROTECTIVE SERVICES SOCIAL WORKER Telephone Encounter - Cary Coto - 05/15/2019 12:22 PM CST Reason for Communication: Patient calling about needing a order for patient to get her colonoscopy. Patient states it can be faxed to Dr Dunham via [employer]. Current Can Nursing/Provider leave a detailed message: Did the patient refuse triage through Nurse line? (for symptom based concerns): Action Needed: Order for colonoscopy via [facility] Name of Medication (if relevant): D PROTECTIVE SERVICES SOCIAL WORKER documented in this encounter Plan of Treatment Upcoming Encounters Date Type Specialty Care Team Description 03/25/2022 Office Visit Family Medicine Leslie Gonzalez M.D. [address] [place] [address] [phone] (Wo rk) documented as of this encounter Visit Diagnoses Diagnosis Screening Cancer Colon - Primary documented in this encounter Care Teams Security Controls Assessor Relationship Specialty Start Date End Date Merrill Bee P.A.-C. PCP - General 11/18/[address] [place] [phone] documented as of this encounter
--- OUTSIDE RECORDS SUMMARY | 2022-03-22 15:47 | XMS_ITS | Encounter Summary ---
:1950 Author Organization [facility] Address [address] [place] [address] Care Team Providers Name Role Phone Merrill Bee P.A.-C. Primary Care Provider [phone] Encounter Details Date Type Department Care Team Description 11/19/2019 Clinical Communication Department of [facility] Merrill Bee, [facility], Preet Marte [facility], in [address] [address] [place], [place] [phone] (Work) [phone] Social History Tobacco Use Types Packs/Day Years Used Date Smoking Tobacco: Former Cigarettes Quit : 1993 Smokeless Tobacco: Never Alcohol Use Standard Drinks/Week Comments Yes 16 (1 standard drink = 0.6 oz pure alcoh ol) Alcohol Habits Answer Date Recorded How often do you have a drink containing 4 or more times a w [place] 10/05/2021 alcohol? How many drinks containing alcohol [...] have completed or the highest Faustina, MEd, ENTERPRISE RECORDS ANALYST, GIORGIO) degree you have received? Sex Assigned at Date Recorded Female 03/07/2018 9:31 AM CDT documented as of this encounter Miscellaneous Notes Telephone Encounter - Fang Mathews L.P.N. - 11/20/2019 1:18 PM CDT SUBJECTIVE CHIEF COMPLAINT / REASON FOR CALL No chief complaint on file. Information Discussed Patient was reached and notified, she agrees with plan of care. Was transferred to scheduling to assist in setting up an appointment. PLAN Disposition/Recommendation: patient transferred to the appointment desk Information/Education: patient/caller able to teach back Caller agreeable to plan of care: yes The following references were used: provider Dr. Easton Telephone Encounter - Peter Easton M.D. - 11/20/2019 1:12 PM CDT Please arrange a video visit or face to face with Primary care team so we can assess her need. Telephone Encounter - Grace Wade - 11/19/2019 12:30 PM CDT Reason for Communication: Patient called to request an order to see Dr. Martinez Rosales for her lower backpain, she use to see Dr. Dalton Current Can Nursing/Provider leave a detailed message: yes Did the patient refuse triage through Nurse line? (for symptom based concerns): na Action Needed: Please advise Name of Medication (if relevant): documented in this encounter Plan of Treatment Upcoming Encounters Date Type Specialty Care Team Description 03/25/2022 Office Visit Family Medicine Leslie Gonzalez M.D. [address] [place] [phone] (Wo rk) documented as of this encounter Visit Diagnoses Not on filedocumented in this encounter Care Teams Evs Tech Relationship Specialty Start Date End Date Merrill Bee P.A.-C. PCP - General 11/18/[address] [place] [phone] documented as of this encounter
--- OUTSIDE RECORDS SUMMARY | 2022-03-22 15:47 | XMS_ITS | Encounter Summary ---
:1950 Author Organization [facility] Address [address] [place] [address] Care Team Providers Name Role Phone Merrill Bee P.A.-C. Primary Care Provider [phone] Encounter Details Date Type Department Care Team Description 03/24/2020 Hospital Encounter Department of Radiology Kathleen eBe, Pain Low Back in [facility] clive Marte [address] [place] [phone] Social History Tobacco Use Types Packs/Day Years Used Date Smoking Tobacco: Former Cigarettes Quit : 1993 Smokeless Tobacco: Never Alcohol Use Standard Drinks/Week Comments Yes 16 (1 standard drink = 0.6 oz pure alcoh ol) Alcohol Habits Answer Date Recorded How often do you have a drink containing 4 or more times a w [place] 10/05/2021 alcohol? How many drinks containing alcohol [...] have completed or the highest Faustina, MEd, WATERPROOFER, GIORGIO) degree you have received? Sex Assigned at Date Recorded Female 03/07/2018 9:31 AM CDT documented as of this encounter Medications at Time of Discharge Medication Sig Dispensed Refills Start Date End Date B complex-vitamin Take 1 capsule by 0 10/22/2015 (for_SUPER B-50) capsule mouth daily. CALCIUM Take by mouth 2 0 01/27/2010 CARBONATE/VITAMIN D3 (two) times a day. (CALCIUM 600 WITH VITAMIN D3 ORAL) DOCOSAHEXANOIC ACID/EPA daily. 0 12/13/2012 (FISH OIL ORAL) esomeprazole (NexIUM) 20 Take 20 mg by mouth [address] capsule daily. GLUCOSAMINE/CHONDROITIN daily. 0 10/05/2010 SULF A (GLUCOSAMINE-CHONDROITIN ORAL) latanoprost Administer 1 drop 0 08/02/2014 (for_XALATAN) 0.005 % into both eyes at ophthalmic solution bedtime. VIT C/VIT Take 1 tablet by 0 10/22/2015 E/LUTEIN/MIN/OMEGA-3 mouth daily. (OCUVITE ORAL) acetaminophen (TYLENOL Take by mouth 3 0 10/06/19 11 06/23/2020 EXTRA STRENGTH) 500 mg (three) times a tablet day. aspirin 325 mg tablet Take 1 tablet by 0 06/03/20 16 06/30/2020 mouth daily. atorvastatin (Lipitor) Take 1 tablet (40 90 tablet 3 201902/16/2021 40 mg tablet mg total) by mouth at bedtime. Bifidobacterium infantis Take 1 capsule by 0 /02/201106/30/2020 (ALIGN) 4 mg capsule mouth daily. CETIRIZINE HCL Take by mouth 0 11/19/2015 021 (CETIRIZINE ORAL) daily. DULoxetine (CYMBALTA) 60 Take 2 capsules 180 capsule 3 01/0301/12/[address] capsule (120 mg total) by mouth daily. lisinopril-hydroCHLOROth Take 1 tablet by 90 tablet 3 03/2407/14/2020 iazide mouth daily. (PRINZIDE,ZESTORETIC) 20-12.5 mg per tablet meclizine (ANTIVERT) 25 TAKE 1 TABLET BY 270 tablet 3 201910/06/2020 mg tablet MOUTH THREE TIMES DAILY NEEDED FOR DIZZINESS MULTIVITAMIN ORAL daily. 0 01/27/2010 021 documented as of this encounter Plan of Treatment Upcoming Encounters Date Type Specialty Care Team Description 03/25/2022 Office Visit Family Medicine Leslie Gonzalez M.D. [address] [place] [phone] (Wo rk) documented as of this encounter Procedures Procedure Name Priority Date/Time Associated Comments Diagnosis DX LUMBAR SPINE RAD - Routine 03/24/2020 3:51 Pain Low Back Results for this 2-3 VIEWS (most inpatients PM CDT procedure a re in and all the results outpatients) section. documented in this encounter Results DX Lumbar Spine 2-3 Views (03/24/2020 3:51 PM CDT) Anatomical Region Laterality Modality Lumbar Spine, Musculoskeletal RST LOS, Neuroradiology N/A Digital Radiography ARZ LOS, Muskuloskeletal FLA LOS Specimen (Source) Anatomical Collection Method Collection Time Re ceived Time Location / / Volume Laterality 03/24/2020 3:53 PM CDT Impressions 03/24/2020 3:54 PM CDT 5 lumbar type vertebral bodies moderately prominent multilevel degenerative disc space disease, facet a rthropathy mid, lower lumbar spine which have worsened since 2009. Degenerative d isc space disease most pronounced L3, L4, L5 disc space and facet joint levels . Scattered vascular calcifications Narrative 03/24/2020 3:54 PM CDT EXAM: DX LUMBAR SPINE 2-3 VIEWS COMPARISON: January 27, 2010 Procedure Note Martinez Bernard M.D. - 03/24/2020Forma tting of this note might be different from the original. EXAM: DX LUMBAR SPINE 2-3 VIEWS COMPARISON: January 27, 2010 IMPRESSION: 5 lumbar type vertebral bodies moderatel y prominent multilevel degenerative disc space disease, facet a rthropathy mid, lower lumbar spine which have worsened since 2009. Degenerative d isc space disease most pronounced L3, L4, L5 disc space and facet joint levels . Scattered vascular calcifications Merrill Bee P.A.-C. IMG DIAGNOSTIC IMAGING PROCE DURMONET documented in this encounter Visit Diagnoses Diagnosis Pain Low Back Unspecified documented in this encounter Care Teams Robotics Testing Technician Relationship Specialty Start Date End Date Merrill Bee P.A.-C. PCP - General 11/18/[address] [place] [phone] documented as of this encounter
--- OUTSIDE RECORDS SUMMARY | 2022-03-22 15:47 | XMS_ITS | Encounter Summary ---
:1950 Author Organization [facility] Address [address] [place] [address] Care Team Providers Name Role Phone Merrill Bee P.A.-C. Primary Care Provider [phone] Reason for Visit Reason Comments Med Refill Encounter Details Date Type Department Care Team Description 07/07/2019 Refill Department of Family Medicine, Merrill Rodriguez P.A.-C. Med Refill [facility], in [address] [place] [phone] [place] [address] [place] [address] [phone] Social History Tobacco Use Types Packs/Day Years Used Date Smoking Tobacco: Former Cigarettes Quit : 1993 Smokeless Tobacco: Never Alcohol Use Standard Drinks/Week Comments Yes 16 (1 standard drink = 0.6 oz pure alcoh ol) Alcohol Habits Answer Date Recorded How often do you have a drink containing 4 or more times a w [place] 10/05/2021 alcohol? How many drinks containing alcohol [...] 10/05/2021 organizations such as religious groups, unions, fraternal or athletic groups, or school groups? How often do you attend meetings of the More than 4 times [facility] year 10/05/2021 clubs or organizations you belong [...] have completed or the highest Faustina, MEd, HEAT TREATMENT TECHNICIAN, GIORGIO) degree you have received? Sex Assigned at Date Recorded Female 03/07/2018 9:31 AM CDT documented as of this encounter Plan of Treatment Upcoming Encounters Date Type Specialty Care Team Description 03/25/2022 Office Visit Family Medicine Leslie Gonzalez M.D. [address] [place] [phone] (Wo rk) documented as of this encounter Visit Diagnoses Not on filedocumented in this encounter Care Teams Training Facilitator Relationship Specialty Start Date End Date Merrill Bee P.A.-C. PCP - General 11/18/[address] [place] [phone] documented as of this encounter
--- OUTSIDE RECORDS SUMMARY | 2022-03-22 15:47 | XMS_ITS | Encounter Summary ---
:1950 Author Organization [facility] Address [address] [place] [address] Care Team Providers Name Role Phone Merrill Bee P.A.-C. Primary Care Provider [phone] Reason for Visit Reason Comments Pain Medicine consult ordered at rs Order for [facility] Encounter Details Date Type Department Care Team Description 03/25/2020 Clinical Communication Department of Rohit Pain Medicine Family MedicineMerrill, [facility] (Order for [facility] in [place], [address] [facility]) [place], [place] [address] [facility] [address] [place], [place] [phone] (Work) [phone] Social History Tobacco Use Types Packs/Day Years Used Date Smoking Tobacco: Former Cigarettes Quit : 1993 Smokeless Tobacco: Never Alcohol Use Standard Drinks/Week Comments Yes 16 (1 standard drink = 0.6 oz pure alcoh ol) Alcohol Habits Answer Date Recorded How often do you have a drink containing 4 or more times a w [place] 10/05/2021 alcohol? How many drinks containing alcohol do you have 1 or 2 10/05/2021 on a typical day when you are drinking? How often do you have six or more drinks on one Less than mo nthly 10/05/2021 occasion? Social Isolation Answer Date Recorded In a typical week, how many times do you More than three clitfon es a week 10/05/2021 talk on the [...] have completed or the highest Faustina, MEd, SHIP LABORER, [place]) degree you have received? Sex Assigned at Date Recorded Female 03/07/2018 9:31 AM CDT documented as of this encounter Miscellaneous Notes Telephone Encounter - Guillermina Espino - 03/25/2020 1:45 PM CDT Thank you for your order. We have left a telephone message for this patient to return a call so that we may gather additional information for registration and scheduling. We will attempt to contact the patient again in 2 business days. If someone should contact you about the message, please direct that person to call us at . If you have questions, please call us at [phone] or [phone]. Sincerely, [facility] Online Services for Referring Physicians Appointment Office documented in this encounter Plan of Treatment Upcoming Encounters Date Type Specialty Care Team Description 03/25/2022 Office Visit Family Medicine Leslie Gonzalez M.D. [address] [place] [address] [phone] (Wo rk) documented as of this encounter Visit Diagnoses Not on filedocumented in this encounter Care Teams Tab Cutting Machine Operator Relationship Specialty Start Date End Date Merrill Bee P.A.-C. PCP - General 11/18/[address] [place] [phone] documented as of this encounter
--- OUTSIDE RECORDS SUMMARY | 2022-03-22 15:47 | XMS_ITS | Encounter Summary ---
:1950 Author Organization [facility] Address [address] [place] [address] Care Team Providers Name Role Phone Merrill Bee P.A.-C. Primary Care Provider [phone] Reason for Referral Outpatient (Routine) - Closed Specialty Diagnoses / Procedures Referred By Contact Refer red To Contact Family Medicine Merrill Bee P. A.-C. [facility] [address] [phone] Referral ID Status Reason Start Date Expiration Date Visits Requ ested Visits Authorized [id number] Closed 01/04/2020 01/03/2021 1 1 Reason for Visit Reason Comments Annual Exam labs done on 12-31 Outpatient (Routine) - Closed Specialty Diagnoses / Procedures Referred By Contact Refer red To Contact Family Medicine Merrill Bee P. A.-C. [address] [phone] Referral ID Status Reason Start Date Expiration Date Visits Requ ested Visits Authorized [id number] Closed 12/01/2018 12/01/2019 1 1 Encounter Details Date Type Department Care Team Description 01/04/2020 Comprehensive Visit Department of Derek Bee Essential Primary (Primary Dx); Merrill Herrmann, Ayesha [facility]ch[facility]; in [address] Reflux Esophageal; [place], [place] Screening Examination Diabet es Mellitus; [address] [facility] [phone] Encounter For Screening For Cardiovascul ar Disorders ROCIOABIODUNANN ERIKA [phone] (Work) [phone] Social History Tobacco Use Types Packs/Day Years Used Date Smoking Tobacco: Former Cigarettes Quit : 1993 Smokeless Tobacco: Never Tobacco Cessation: Counseling Given: Yes Alcohol Use Standard Drinks/Week Comments Yes 16 (1 standard drink = 0.6 oz pure alcoh ol) Alcohol Habits Answer Date Recorded How often do you have a drink containing 4 or more times a w [place] 10/05/2021 alcohol? How many drinks containing [...] 1 to 4 times per year 07/2021 worship services? Do you belong to any clubs [...] have completed or the highest Faustina, MEd, RACING CAR DRIVER, [employer]) degree you have received? Sex Assigned at Date Recorded Female 03/07/2018 9:31 AM CDT documented as of this encounter Last Filed Vital Signs Vital Sign Reading Time Taken Comments Blood Pressure 120/65 01/04/2020 9:18 AM CDT Pulse 93 01/04/2020 9:18 AM CDT Temperature 36.3 ??C (97.3 ??F) 01/04/2020 9:18 AM CDT Respiratory Rate 18 01/04/2020 9:18 AM CDT Oxygen Saturation - - Inhaled Oxygen Concentration - - Weight 90.5 kg (199 lb 6.5 oz) 01/04/2020 9:18 AM CDT Height 168.5 cm (5' 6.34) 01/04/2020 9:18 AM CDT Body Mass Index 31.86 01/04/2020 9:18 AM CDT documented in this encounter H&P Notes Merrill Bee P.A.-C. - 01/04/2020 9:30 AM CDT CHIEF COMPLAINT / REASON FOR VISIT Steph Simmons is a 69 y.o. female who presents for evaluation of Annual Exam (labs done on 12-31). HISTORY OF PRESENT ILLNESS Steph presents today for her yearly medication review. Overall she is doing well she has hypertension that is well controlled. She also has hyperlipidemia that is pretty well controlled with the Lipitor. She struggles with some peripheral neuropathy she takes Cymbalta for this and finds it to help somewhat but she is wanting if his anything else that can be done. She tried gabapentin but did not likethe way it made her feel PAST MEDICAL HISTORY: Patient Active Problem List Diagnosis ??? Reflux Esophageal ??? Hypercholesterolemia ??? Neuropathy Peripheral ??? Hypertension Essential Primary ??? Onychomycosis PAST SURGICAL HISTORY: Past Surgical History: Procedure Laterality Date ??? APPENDECTOMY N/A 11/18/1993 Appendectomy ??? CARPAL TUNNEL RELEASE Right 1980 ??? HYSTERECTOMY 1993 ??? LEFT COLECTOMY N/A 11/18/1993 Resection of descending colon ??? SALPINGO - OOPHORECTOMY SOCIAL HISTORY: Social History Tobacco Use ??? Smoking status: Former Smoker Last attempt to quit: 1993 Years since quittin.5 ??? Smokeless tobacco: Never Used Substance Use Topics ??? Alcohol use: Yes Alcohol/week: 16.0 standard drinks Types: 7 Glasses of wine, 7 Cans of beer, 2 Standard drinks or equivalent per week Frequency: 4 or more times a week Drinks per session: 3 or 4 Binge frequency: Less than monthly ??? Drug use: Not on file FAMILY HISTORY: Family History Problem Relation Age of Onset ??? Lung cancer Father ??? Colitis Brother ??? Hypertension Brother REVIEW OF SYSTEMS: General: Denies recent fever, weight loss, or [...] bruising or bleeding or enlarged lymph nodes. MEDICATIONS: Current Outpatient Medications Medication Sig Dispense Refill ??? acetaminophen (TYLENOL EXTRA STRENGTH) 500 mg tablet Take by mouth 3 (three) times a day. ??? aspirin 325 mg tablet Take 1 tablet by mouth daily. ??? B complex-vitamin (for_SUPER B-50) capsule Take 1 capsule by mouth daily. ??? Bifidobacterium infantis (ALIGN) 4 mg capsule Take 1 capsule by mouth daily. ??? BILBERRY ORAL bilberry See Instructions, Takes 1 cap daily ??? CALCIUM CARBONATE/VITAMIN D3 (CALCIUM 600 WITH VITAMIN D3 ORAL) Take by mouth 2 (two) times a day. ??? CETIRIZINE HCL (CETIRIZINE ORAL) Take by mouth daily. ??? DOCOSAHEXANOIC ACID/EPA (FISH [...] drop into both eyes at bedtime. ??? meclizine (ANTIVERT) 25 mg tablet TAKE 1 TABLET BY MOUTH THREE TIMES DAILY NEEDED FOR DIZZINESS 270 tablet 3 ??? MULTIVITAMIN ORAL daily. ??? VIT C/VIT E/LUTEIN/MIN/OMEGA-3 (OCUVITE ORAL) Take 1 tablet by mouth daily. ??? atorvastatin (Lipitor) 40 mg tablet Take 1 tablet (40 mg total) by mouth at bedtime. 90 tablet 3 ??? lisinopril-hydroCHLOROthiazide (PRINZIDE,ZESTORETIC) 10-12.5 mg per tablet Take 1 tablet by mouth daily. 90 tablet 3 No current facility-administered medications for this visit. ALLERGIES: Allergies Allergen Reactions ??? Amoxicillin Diarrhea ??? Levofloxacin Hives ??? Morphine Hives ??? Piroxicam Other (see comments) swollen hands and feet, ankles ??? Pregabalin Other (see comments) fatigue, edema at high dose OBJECTIVE Vitals: 01/04/20 0918 BP: 120/65 BP Location: Left arm Patient Position: Sitting Cuff Size: Large Pulse: 93 Resp: 18 Temp: 36.3 ??C TempSrc: Temporal Weight: 90.5 kg Height: 168.5 cm Body mass index is 31.86 kg/m??. PHYSICAL EXAMINATION General: Patient appears in no acute distress. ENT: TMs no erythema. Throat no erythema. Neck: No lymphadenopathy. No thyroid masses. Heart: Regular rate and rhythm. No murmurs. Lungs: Clear to auscultation. Abdomen: Soft and nontender to palpation. Breast exam: No lumps or masses appreciated no axillary lymphadenopathy noted IMPRESSION / REPORT / PLAN #1 Hypertension Essential Primary Blood pressure is well controlled continue on lisinopril hydrochlorothiazide #2 Neuropathy Peripheral We had a good discussion about this were going to increase her Cymbalta to 120 mg a day for symptomsworsen or not improve we could consider Lyrica #3 Hypercholesterolemia Lipids are well controlled continue on Lipitor #4 Reflux Esophageal Continue on Nexium #5 Screening Examination Diabetes Mellitus Will check a metabolic panel when I see her back next year #6 Encounter For Screening For Cardiovascular Disorders And a lipid panel. Total time spent with her was 25 minutes of which 20 was jejf-tr-uhis coordination of care and counseling Merrill Bee P.A.-C. documented in this encounter Plan of Treatment Upcoming Encounters Date Type Specialty Care Team Description 03/25/2022 Office Visit Family Medicine Leslie Gonzalez M.D. [address] [place] [phone] (Wo rk) Scheduled Referrals Name Type Priority Associated Diagnoses Order S [facility] Family Medicine Outpatient Referral Routine Expec marc: office visit 01/03/2021 (clinic) (Approximate), Expires: 01/03/2023 documented as of this encounter Results (ABNORMAL) Lipid Panel (01/05/2021 9:00 AM CDT) P athologist Signature Cholesterol, 204 (H) mg/dL 01/05/2021 [...] Laterality Blood (Blood, 01/05/2021 9:00 AM 01/06/20 Venous) CDT 10:35 AM CDT Merrill Bee P.A.-C. LAB BLOOD ADD-ON Performing Organization Address City/State/ZIP Code Phon e Number [facility]- [address] [place] [address] [facility] [place] [place] [address] System in [place] [address] Basic Metabolic Panel (01/05/2021 9:00 AM CDT) P athologist Signature Potassium, P [...] CDT eGFR-Black/Afric 75 >=60 01/05/2021 [facility] an [place] mL/min/BSA 11:41 AM CDT Comment: ----ADDITIONAL INFORMATION---- [...] Organization Address City/State/ZIP Code Phon e Number [facility]- [address] [place] [address] [place] [address] System in [place] [address] documented in this encounter Visit Diagnoses Diagnosis Hypertension Essential Primary - Primary Neuropathy Peripheral Hypercholesterolemia Reflux Esophageal Screening Examination Diabetes Mellitus Encounter For Screening For Cardiovascul ar Disorders documented in this encounter Care Teams Hotel Supplies Salesperson Relationship Specialty Start Date End Date Merrill Bee P.A.-C. PCP - General 11/18/16 [address] [place] [phone] documented as of this encounter
--- OUTSIDE RECORDS SUMMARY | 2022-03-22 15:47 | XMS_ITS | Encounter Summary ---
:1950 Author Organization [facility] Address [address] [place] [address] Care Team Providers Name Role Phone Merrill Bee P.A.-C. Primary Care Provider [phone] Reason for Referral Outpatient (Routine) - Closed Specialty Diagnoses / Procedures Referred By Contact Refer red To Contact Family Medicine Merrill Bee P. A.-C. [address] [phone] Referral ID Status Reason Start Date Expiration Date Visits Requ ested Visits Authorized [id number] Closed 03/24/2020 03/24/2021 1 1 Outpatient (Routine) - Closed Specialty Diagnoses / Procedures Referred By Contact Refer red To Contact Pain Medicine Diagnoses Pain Low Back Unspecified [facility] [address] [place] [phone] Referral ID Status Reason Start Date Expiration Date Visits Requ ested Visits Authorized [id number] Closed 03/24/2020 03/24/2021 1 1 MRI/CAT/PET Scan (Routine) - Closed Specialty Diagnoses / Procedures Referred By Contact Refer red To Contact Radiology Diagnoses Pain Low Back Unspecified Merrill Bee P.A.-C. [facility] [place] [facility] Procedures MR Lumbar Spine without IV Contrast [address] [place] [address] Referral ID Status Reason Start Date Expiration Date Visits Requ ested Visits Authorized [id number] Closed 03/24/2020 03/24/2021 1 1 Reason for Visit Reason Comments Pain Appointment Request (Routine) - Closed Specialty Diagnoses / Procedures Referred By Contact Refer red To Contact Family Medicine Referral ID Status Reason Start Date Expiration Date Visits Requ ested Visits Authorized [id number] Closed 03/12/2020 03/12/2021 1 1 Encounter Details Date Type Department Care Team Description 03/24/2020 Office Visit Department of [facility] Merrill Bee Pa in Low Back (Primary Dx); Medicine, [facility] Radiculopathy; Clinic, in [address] [facility]; [place], [place] Need Vaccine Immunization In [address] [address] [place], [place] [phone] (Work) [phone] Social History Tobacco Use Types Packs/Day Years Used Date Smoking Tobacco: Former Cigarettes Quit : 1993 Smokeless Tobacco: Never Alcohol Use Standard Drinks/Week Comments Yes 16 (1 standard drink = 0.6 oz pure alcoh ol) Alcohol Habits Answer Date Recorded How often do you have a drink containing 4 or more times a w [place] 10/05/2021 alcohol? How many drinks containing alcohol [...] or relatives? How often do you attend tenriism or 1 to 4 times per year 07/2021 sikh services? Do you belong to any clubs or Yes 10/05/2021 organizations such as tenriism groups, unions, fraternal or athletic groups, or school groups? How often do you attend meetings of the More than 4 times [facility] year 10/05/2021 clubs or organizations you [...] have completed or the highest Faustina, MEd, COW TENDER, GIORGIO) degree you have received? Sex Assigned at Date Recorded Female 03/07/2018 9:31 AM CDT documented as of this encounter Last Filed Vital Signs Vital Sign Reading Time Taken Comments Blood Pressure 150/78 03/24/2020 2:23 PM CDT Pulse 99 03/24/2020 2:20 PM CDT Temperature 36.7 ??C (98.1 ??F) 03/24/2020 2:20 PM CDT Respiratory Rate 16 03/24/2020 2:20 PM CDT Oxygen Saturation - - Inhaled Oxygen Concentration - - Weight 95.5 kg (210 lb 8.6 oz) 03/24/2020 2:20 PM CDT Height - - Body Mass Index 33.64 01/04/2020 9:18 AM CDT documented in this encounter Progress Notes Merrill Bee P.A.-C. - 03/24/2020 2:30 PM CDT CHIEF COMPLAINT / REASON FOR VISIT Steph Simmons is a 69 y.o. female who presents for evaluation of Pain. HISTORY OF PRESENT ILLNESS Steph presents today for follow-up of some back pain has been bothering her for quite some time. Shehas a longstanding history of this. She used to see Dr. Dalton. She has received injections in her back before. She has done physical therapy. For quite some time she was walking and found this to be beneficial but now does not seem to be helping as much. Every morning she wakes up and does her stretching routine and it feels good but once she starts walking her pain increases. OBJECTIVE Vitals: 03/24/20 1420 03/24/20 1423 BP: 152/80 150/78 BP Location: Right arm Right arm Patient Position: Sitting Sitting Cuff Size: Regular Regular Pulse: 99 Resp: 16 Temp: 36.7 ??C TempSrc: Temporal Weight: 95.5 kg Body mass index is 33.64 kg/m??. PHYSICAL EXAM In general she appears in no acute distress Back: She has some discomfort to palpation in the area of her sacroiliac joints bilaterally but thisradiates down into her gluteal region and down into her legs bilaterally. She does describe some neuropathy in her feet. IMPRESSION / REPORT / PLAN #1 Pain Low Back This has been a chronic issue. It improved but now it seems to have gotten worse. It did an x-ray ofher lumbar spine today showing some progression of her arthritis. I am going to set up to be seen inthe pain clinic she may benefit from another injection verses other treatment options. #2 Radiculopathy Follow up with the Spine [facility]. They typically require an MRI prior to a visit so I am going to setthis up as well because of her radiculopathy #3 Hypertension [facility]ential [facility] Her blood pressure is suboptimally controlled. I am going to increase the dose of lisinopril. Will go to 20/12.5. I would like to see her back in a month with an electrolyte panel. If she has any questions or problems in the meantime she will let us know #4 Need Vaccine Immunization Influenza We updated her flu vaccine today. Total time spent with her was 25 minutes of which 20 was [id number] coordination of care and counseling Merrill Bee P.A.-C. documented in this encounter Plan of Treatment Upcoming Encounters Date Type Specialty Care Team Description 03/25/2022 Office Visit Family Medicine Leslie Gonzalez M.D. [address] [place] [phone] (Wo rk) Scheduled Referrals Name Type Priority Associated Diagnoses Order S chedule Pain Medicine - Outpatient Referral Routine Pain Low [place] Expected: Spine consult Radiculopathy 03/24/2020 (clinic) (Approximate), Expires: 03/24/2023 Family Medicine Outpatient Referral Routine Expec marc: office visit 04/24/2020 (clinic) (Approximate), Expires: 03/24/2023 documented as of this encounter Results Basic Metabolic Panel (04/24/2020 9:13 AM BUSINESS IMPROVEMENT MANAGER) P athologist Signature Potassium, P 5.1 3.6 - 5.2 04/24/2020 [facility] mmol/L 11:10 AM BUSINESS IMPROVEMENT MANAGER Sodium, P 135 135 - 145 04/24/2020 [facility] mmol/L 11:10 AM BUSINESS IMPROVEMENT MANAGER Chloride, P 98 98 - 107 04/24/2020 [facility] mmol/L 11:10 AM BUSINESS IMPROVEMENT MANAGER Bicarbonate, P 26 22 - 29 04/24/2020 [facility] mmol/L 11:10 AM BUSINESS IMPROVEMENT MANAGER Anion Gap, P 11 7 - 15 04/24/2020 [facility] 11:10 AM BUSINESS IMPROVEMENT MANAGER BUN (Blood Urea 20 6 - 21 04/24/2020 [facility] Nitrogen), P mg/dL 11:10 AM BUSINESS IMPROVEMENT MANAGER Creatinine 0.86 0.59 - 04/24/2020 [facility] 1.04 mg/dL 11:10 AM BUSINESS IMPROVEMENT MANAGER eGFR-Black/Afric 79 >=60 04/24/2020 [facility] an Polish mL/min/BSA 11:10 AM BUSINESS IMPROVEMENT MANAGER Comment: ----ADDITIONAL INFORMATION---- Estimated GFR calculated using the 2009 CKD_EPI creatinine equation. eGFR Non-Black/ 68 >=60 mL/min/BSA 04/24/2020 11:10 AM BUSINESS IMPROVEMENT MANAGER [facility] Comment: ----ADDITIONAL INFORMATION---- Estimated GFR calculated using the 2009 CKD_EPI creatinine equation. Calcium, Total, P 9.7 8.8 - 10.2 mg/dL 04/24/2020 11:1 0 AM BUSINESS IMPROVEMENT MANAGER OW[facility] Glucose, P 123 70 - 140 mg/dL 04/24/2020 11:10 AM BUSINESS IMPROVEMENT MANAGER [facility] Specimen Anatomical Collection Method Collection Time Receive d Time (Source) Location / / Volume Laterality Blood (Blood, 04/24/2020 9:13 AM 04/24/20 20 Venous) BUSINESS IMPROVEMENT MANAGER 10:47 AM BUSINESS IMPROVEMENT MANAGER Merrill Bee P.A.-C. LAB BLOOD ADD-ON Performing Organization Address City/State/ZIP Code Phon e Number [facility]- [address] [place] [address] [place] [address] System in [place] [address] MR Lumbar Spine without IV Contrast (04/01/2020 1:07 PM CDT) Anatomical Region Laterality Modality Lumbar Spine, Neuroradiology RST LOS, Neuroradiology N/A Magnetic Resonance ARZ LOS, Neuroradiology FLA [facility] Specimen (Source) Anatomical Collection Method Collection Time Re ceived Time Location / / Volume Laterality 04/01/2020 1:47 PM CDT Impressions 04/01/2020 2:08 PM CDT Multifocal moderate to severe potentially significant stenoses, most notably the central canal at L3-4/L4-5 and the left neural foramen at L5-S1. Narrative 04/01/2020 2:08 PM CDT EXAM: ??MR LUMBAR SPINE WITHOUT IV CONTRAST COMPARISON: ??May 17, 2016 FINDINGS: ?? Vertebral body endplate degenerative jr nges; lumbar vertebral bodies are otherwise normal in stature. Slight grad e 1 retrolisthesis of L1-2 and L2-3. No suspicious bone marrow signal abnorma lity. Negative for acute lumbar spine fracture. The conus is normal in position. Abnorma l cauda equina nerve root morphology likely secondary to impingement at the l evel of L4-5 and possibly L3-4, further detailed below. Visualized paraspinal tissues are unrema rkable. Multilevel lumbar spine degenerative jr nges are detailed below: L1-2: Broad based disc bulge. Mild facet arthropathy. Mild spinal canal stenosis. Mild bilateral neuroforaminal stenosis. L2-3: Broad based disc bulge. Mild facet arthropathy. Mild spinal canal stenosis. Mild bilateral neuroforaminal stenosis. L3-4: Broad based disc bulge. Moderate t o advanced facet arthropathy. Prominent epidural fat. Moderate to severe spinal canal stenosis with potential abutment of nerve roots in the central canal. Mil d to moderate bilateral neuroforaminal stenosis. L4-5: Broad based disc bulge. Advanced f acet arthropathy and prominent ligamentum flavum thickening. Severe spi nal canal stenosis with abutment of nerve roots in the central canal and pot ential abutment or impingement of the bilateral L5 nerve roots in the lateral recesses. Mild to moderate bilateral neuroforaminal stenosis. L5-S1: Small broad-based disc bulge and posterior annular fissure. Moderate facet arthropathy. Ligamentum flavum thi ckening. Mild central canal and left lateral recess stenosis. Mild right and moderate left neuroforaminal stenosis with potential abutment of the left L5 n erve root. For the purpose of this report, 5 lumbar type vertebral bodies are assumed. Close radiographic correlation recommend ed prior to any spinal intervention or surgery. Procedure Note Sharif Kenyon M.D. - 04/01/2020Formattin g of this note might be different from the original. EXAM: MR LUMBAR SPINE WITHOUT IV CONTRAS T COMPARISON: May 17, 2016 FINDINGS: Vertebral body endplate degenerative jr nges; lumbar vertebral bodies are otherwise normal in stature. Slight grad e 1 retrolisthesis of L1-2 and L2-3. No suspicious bone marrow signal abnorma lity. Negative for acute lumbar spine fracture. The conus is normal in position. Abnorma l cauda equina nerve root morphology likely secondary to impingement at the l evel of L4-5 and possibly L3-4, further detailed below. Visualized paraspinal tissues are unrema rkable. Multilevel lumbar spine degenerative jr nges are detailed below: L1-2: Broad based disc bulge. Mild facet arthropathy. Mild spinal canal stenosis. Mild bilateral neuroforaminal stenosis. L2-3: Broad based disc bulge. Mild facet arthropathy. Mild spinal canal stenosis. Mild bilateral neuroforaminal stenosis. L3-4: Broad based disc bulge. Moderate t o advanced facet arthropathy. Prominent epidural fat. Moderate to severe spinal canal stenosis with potential abutment of nerve roots in the central canal. Mil d to moderate bilateral neuroforaminal stenosis. L4-5: Broad based disc bulge. Advanced f acet arthropathy and prominent ligamentum flavum thickening. Severe spi nal canal stenosis with abutment of nerve roots in the central canal and pot ential abutment or impingement of the bilateral L5 nerve roots in the lateral recesses. Mild to moderate bilateral neuroforaminal stenosis. L5-S1: Small broad-based disc bulge and posterior annular fissure. Moderate facet arthropathy. Ligamentum flavum thi ckening. Mild central canal and left lateral recess stenosis. Mild right and moderate left neuroforaminal stenosis with potential abutment of the left L5 n erve root. For the purpose of this report, 5 lumbar type vertebral bodies are assumed. Close radiographic correlation recommend ed prior to any spinal intervention or surgery. IMPRESSION: Multifocal moderate to severe potentiall y significant stenoses, most notably the central canal at L3-4/L4-5 and the left neural foramen at L5-S1. Merrill Bee P.A.-C. IMG MRI PROCEDURES DX Lumbar Spine 2-3 Views (03/24/2020 3:51 [...] Visit Diagnoses Diagnosis Pain Low Back Unspecified - Primary Radiculopathy Hypertension Essential Primary Need Vaccine Immunization Influenza Pain Low Back Unspecified Pain Low Back Unspecified documented in this encounter Care Teams Broadband Engineer Relationship Specialty Start Date End Date Merrill Bee P.A.-C. PCP - General 11/18/[address] [place] [phone] documented as of this encounter
--- OUTSIDE RECORDS SUMMARY | 2022-03-22 15:47 | XMS_ITS | Encounter Summary ---
:1950 Author Organization [facility] Address [address] [place] [address] Care Team Providers Name Role Phone Merrill Bee P.A.-C. Primary Care Provider [phone] Reason for Referral Outpatient (Routine) - Closed Specialty Diagnoses / Procedures Referred By Contact Refer red To Contact Diagnoses Screening Mammogram Breast Cancer Merrill Bee P.A.-C. [facility] Procedures BI Breast Screening Bilateral [address] [place] [address] Referral ID Status Reason Start Date Expiration Date Visits Requ ested Visits Authorized [id number] Closed 11/07/2019 11/06/2020 1 1 Reason for Visit Outpatient (Routine) - Closed Specialty Diagnoses / Procedures Referred By Contact Refer red To Contact Diagnoses Screening Mammogram Breast Cancer Merrill Bee P.A.-C. [facility] Procedures BI Breast Screening Bilateral [address] [place] [address] Referral ID Status Reason Start Date Expiration Date Visits Requ ested Visits Authorized [id number] Closed 11/07/2019 11/06/2020 1 1 Encounter Details Date Type Department Care Team Description 01/01/2020 Hospital Encounter Department of [facility] Mammogram Radiology in [place] [facility] Breast Cancer [place], [place] [address] [phone] Social History Tobacco Use Types Packs/Day Years Used Date Smoking Tobacco: Former Cigarettes Quit : 1993 Smokeless Tobacco: Never Alcohol Use Standard Drinks/Week Comments Yes 16 (1 standard drink = 0.6 oz pure alcoh ol) Alcohol Habits Answer Date Recorded How often do you have a drink containing 4 or more times a w [place] 10/05/2021 alcohol? How many drinks containing alcohol [...] have completed or the highest Faustina, MEd, HVAC JOURNEYMAN, GIORGIO) degree you have received? Sex Assigned at Date Recorded Female 03/07/2018 9:31 AM CDT documented as of this encounter Medications at Time of Discharge Medication Sig Dispensed Refills Start Date End Date B complex-vitamin Take 1 capsule by 0 10/22/2015 (for_SUPER B-50) capsule mouth daily. CALCIUM CARBONATE/VITAMIN Take by mouth 2 0 01/27 D3 (CALCIUM 600 WITH (two) times a day. VITAMIN D3 ORAL) DOCOSAHEXANOIC ACID/EPA daily. 0 12/13/2012 (FISH OIL ORAL) esomeprazole (NexIUM) 20 Take 20 mg by mouth [address] capsule daily. GLUCOSAMINE/CHONDROITIN daily. 0 10/05/2010 SULF A (GLUCOSAMINE-CHONDROITIN ORAL) latanoprost (for_XALATAN) Administer 1 drop 0 0.005 % ophthalmic into both eyes at solution bedtime. VIT C/VIT Take 1 tablet by 0 10/22/2015 E/LUTEIN/MIN/OMEGA-3 mouth daily. (OCUVITE ORAL) acetaminophen (TYLENOL Take by mouth 3 0 10/06/19 11 06/23/2020 EXTRA STRENGTH) 500 mg (three) times a tablet day. aspirin 325 mg tablet Take 1 tablet by 0 06/03/20 16 06/30/2020 mouth daily. atorvastatin (LIPITOR) 40 Take 1 tablet (40 90 tablet 3 01/04/2020 mg tablet mg total) by mouth at bedtime. Bifidobacterium infantis Take 1 capsule by 0 12/0506/30/2020 (ALIGN) 4 mg capsule mouth daily. BILBERRY ORAL bilberry See 0 04/09/2013 0 Instructions, Takes 1 cap daily CETIRIZINE HCL Take by mouth 0 11/19/2015 021 (CETIRIZINE ORAL) daily. DULoxetine (CYMBALTA) 60 Take 1 capsule (60 90 capsule 3 01/04/[address] capsule mg total) by mouth daily. lisinopril-hydroCHLOROthi Take 1 tablet by 90 tablet 3 11/0501/04/2020 azide mouth daily. (PRINZIDE,ZESTORETIC) 10-12.5 mg per tablet meclizine (ANTIVERT) 25 TAKE 1 TABLET BY 270 tablet 3 201910/06/2020 mg tablet MOUTH THREE TIMES DAILY NEEDED FOR DIZZINESS MULTIVITAMIN ORAL daily. 0 01/27/2010 021 documented as of this encounter Plan of Treatment Upcoming Encounters Date Type Specialty Care Team Description 03/25/2022 Office Visit Family Medicine Leslie Gonzalez M.D. [address] [place] [phone] (Wo rk) documented as of this encounter Procedures Procedure Name Priority Date/Time Associated Comments Diagnosis BI BREAST RAD - Routine 01/01/2020 9:30 Screening Results for this SCREENING (most inpatients AM CDT Mammogram Breast procedu re are in BILATERAL and all Cancer the results outpatients) section. documented in this encounter Results BI Breast Screening Bilateral (01/01/2020 9:30 AM CDT) Anatomical Region Laterality Modality Breast, Breast Imaging RST LOS, Breast Imaging ARZ LOS, [address] st Bilateral Mammography Imaging FLA LOS Specimen (Source) Anatomical Collection Method Collection Time Re ceived Time Location / / Volume Laterality 01/01/2020 11:36 AM CDT Impressions 01/01/2020 11:38 AM CDT Negative. RECOMMENDATION: ??Annual Screening Mammo gram ASSESSMENT: ??BI-RADS: 1: Negative. Narrative 01/01/2020 11:38 AM CDT EXAM: ??BI BREAST SCREENING BILATERAL Current study was evaluated with a Compu ter Aided Detection (CAD) system. INDICATION: ??Screening mammogram. COMPARISON: ??Dating back to 2014 DENSITY: ??c. The breast(s) are heteroge neously dense, which may obscure small masses. FINDINGS: ??No mammographic findings of malignancy. Procedure Note Pk An M.D. - 01/01/2020Formatt ing of this note might be different from the original. EXAM: BI BREAST SCREENING BILATERAL Current study was evaluated with a Compu ter Aided Detection (CAD) system. INDICATION: Screening mammogram. COMPARISON: Dating back to 2014 DENSITY: c. The breast(s) are heterogene ously dense, which may obscure small masses. FINDINGS: No mammographic findings of ma lignancy. IMPRESSION: Negative. RECOMMENDATION: Annual Screening Mammogr am ASSESSMENT: BI-RADS: 1: Negative. Merrill MILLER BI PROCEDURES documented in this encounter Visit Diagnoses Diagnosis Screening Mammogram Breast Cancer documented in this encounter Care Teams Activated Sludge Operator Relationship Specialty Start Date End Date Merrill Bee P.A.-C. PCP - General 11/18/[address] [place] [phone] documented as of this encounter
--- OUTSIDE RECORDS SUMMARY | 2022-03-22 15:47 | XMS_ITS | Encounter Summary ---
:1950 Author Organization [facility] Address [address] [place] [address] Care Team Providers Name Role Phone Merrill Bee P.A.-C. Primary Care Provider [phone] Reason for Referral Outpatient (Routine) - Closed Specialty Diagnoses / Procedures Referred By Contact Refer red To Contact Diagnoses Pain Low Back Unspecified Radiculopathy Earnestine Egan, [facility] Procedures [place] Lumbar Spine Interlaminar Epidural Injection Estuardo, M.S. [address] [place] [address] Referral ID Status Reason Start Date Expiration Date Visits Requ ested Visits Authorized [id number] Closed 06/04/2020 06/04/2021 1 1 Y LEVEL INSTALLATION TECHNICIAN Reason for Visit Outpatient (Routine) - Closed Specialty Diagnoses / Procedures Referred By Contact Refer red To Contact Pain Medicine Diagnoses Pain Low Back Unspecified Radiculopathy Merrill Bee [facility] [address] [place] [address] Referral ID Status Reason Start Date Expiration Date Visits Requ ested Visits Authorized [id number] Closed 03/24/2020 03/24/2021 1 1 Encounter Details Date Type Department Care Team Description 06/04/2020 Comprehensive Visit Division of Pain Jignesh, Mikey opabonita Peripheral (Primary Dx); Medicine in Earnestine Jurado, Pain Low Back; [facility], [facility] Radiculopathy [place] 200 [facility] [address] [place] [phone] Social History Tobacco Use Types Packs/Day Years Used Date Smoking Tobacco: Former Cigarettes Quit : 1993 Smokeless Tobacco: Never Alcohol Use Standard Drinks/Week Comments Yes 16 (1 standard drink = 0.6 oz pure alcoh ol) Alcohol Habits Answer Date Recorded How often do you have a drink containing 4 or more times a w [place] 10/05/2021 alcohol? How many drinks containing alcohol [...] or relatives? How often do you attend alevism or 1 to 4 times per year 07/2021 evangelical services? Do you belong to any clubs or Yes 10/05/2021 organizations such as alevism groups, unions, fraternal or athletic groups, or [...] have completed or the highest Faustina, MEd, MILLINERY SALESPERSON, GIORGIO) degree you have received? Sex Assigned at Date Recorded Female 03/07/2018 9:31 AM CDT documented as of this encounter Consult Notes Earnestine Egan P.A.-C., M.S. - 06/04/2020 11:00 AM CST REFERRAL Merrill Bee P.A.-C. CHIEF COMPLAINT / REASON FOR VISIT Low back and lower extremity pain. HISTORY OF PRESENT ILLNESS Steph Simmons is a 70 y.o. female who presents to the Pain Clinic for further evaluation and recommendations regarding chronic low back and lower extremity pain. Her past medical history significant for peripheral neuropathy, lumbar spinal stenosis, hypercholesterolemia, GERD, and hypertension. Ms. Simmons tells me she has a long history of low back and bilateral lower extremity pain left greater than right. Historically, she has been able to get along quite well with yoga, walking and use of duloxetine. However, with COVID, she feels she has gotten behind the pain. She is having pain across the low back and down the posterior aspects of the bilateral lower extremities. She estimates 60% of the pain to be across the low back and 40% in the legs. She also endorses longstanding neuropathy of the feet bilaterally which affects her proprioception. Her back and leg pain is described as stabbing, aching, and deep. It is worse at night when she is lying flat. The pain is also worse with bending backward, standing, walking, lifting, and climbing stairs. She does get associated cramping of the hamstrings and calves. She does endorse difficulty walking her long driveway to the mailbox. She willfrequently have to stop detention and rest or lean forward before she is able to walk again. She reports if she uses walking sticks this is more helpful. Her pain is also improved with ice, rest, and sitting. Previous treatment trials, as documented in Dr. Adrian Dalton's Physiatry progress notes, indicate: left/right L5 TF ESIs (variable improvement) last performed (?) in 2016, L4-5 interlaminar SHOLA (no improvement), Cymbalta, extra- strength Tylenol, Aleve, PT, etc. she has trialed gabapentin which made her ???feel weird?? she has trialed pregabalin which resulted in fluid retention. Patient denies recent fevers, chills, infections, or antibiotic use. No allergies to contrast dye, local anesthetics or corticosteroid. No neurologic red flag symptoms. Pain score today is rated 3/10. Current Outpatient Medications Medication Sig Dispense Refill [...] (CETIRIZINE ORAL) Take by mouth daily. ??? clobetasoL (TEMOVATE) 0.05 [...] drop into both eyes at bedtime. ??? lisinopril-hydroCHLOROthiazide (PRINZIDE,ZESTORETIC) 20-12.5 mg per tablet Take 1 tablet by mouth daily. 90 tablet 3 ??? meclizine (ANTIVERT) 25 mg tablet TAKE 1 TABLET BY MOUTH THREE TIMES DAILY NEEDED FOR DIZZINESS 270 tablet 3 ??? MULTIVITAMIN ORAL daily. ??? VIT C/VIT E/LUTEIN/MIN/OMEGA-3 (OCUVITE ORAL) Take 1 tablet by mouth daily. No current facility-administered medications for this visit. Allergies: Amoxicillin, Levofloxacin, Morphine, Piroxicam, and Pregabalin OBJECTIVE PHYSICAL EXAM GENERAL: Patient is seated in exam room chair in no acute distress. MENTAL STATUS: Oriented to person, place and time. Recent and remote memory are grossly intact. EYES: Pupils are 3 mm and symmetric. Conjunctiva, eyelids and irises are within normal limits. LUNGS: Normal respiratory efforts. SKIN: Inspection of posterior trunk is without erythema, edema, lesions or rashes. MUSCULOSKELETAL: Palpation: Nontender to palpation of lumbar paraspinals. Provocative Maneuvers: Straight leg raises bilaterally were negative for radicular pain. NEUROLOGIC: Strength: Mild weakness of the right hip flexor as compared to the left. Otherwise her strength is intact throughout. Reflexes: Patellar reflexes are physiologic and symmetric. Unable to elicit Achilles reflexes bilaterally. GAIT: Nonantalgic. SPINE: Lumbar spine forward flexion and extension are intact. IMAGING Have reviewed the MRI of the lumbar spine dated April 01, 2020 showing multilevel broad-based discbulging with multilevel moderate to advanced facet arthropathy. There is moderate to severe central canal stenosis at L3-4 and advanced central canal stenosis at L4-5 attributed to a combination of facet arthropathy, ligamentum flavum thickening, and broad-based disc bulging. ASSESSMENT / PLAN #1 Pain Low Back #2 Radiculopathy #3 Neuropathy Peripheral IMPRESSION: I have seen and evaluated the patient and discussed their case in detail with supervising physician Dr. Clifton Singh whom agrees with the following plan: 1. Conservative: I have encouraged Ms. Simmons to continue her efforts towards physical therapy exercises, walking, and yoga. 2. Medications: She has already trialed gabapentin and pregabalin in the past with side effects. Sheis on a stable dose of duloxetine 120 mg daily and is tolerating this without side effects. No further medication recommendations at this time. 3. Injections: She is scheduled with a hold slot for a lumbar epidural steroid injection later today. I have placed an order for an interlaminar L5-S1 epidural. She does have a bellman driver. She has no contraindications to proceeding. She understands the risks and benefits. She understands to allow 2 weeks time for the procedure to be fully beneficial. 4. Interventional: She potentially could be a candidate for the Vertiflex procedure, spinal cord stimulation or lumbar decompression surgery. We are certainly willing to review these other advanced treatment modalities with her further should she not have the relief she is hoping for with the lumbar ep idural steroid injection. The risks, benefits, and alternatives to the planned procedure were discussed in detail, including the risk of exposure to COVID-19 within the facility. All questions pertaining to the procedure and these risks were answered and the patient agreed to proceed. Followup: Ms. Simmons will followup with the pain clinic as needed. She was provided my business card and contact information. PATIENT EDUCATION Ready to learn, no apparent learning barriers were identified: learning preferences included listening. Explained diagnosis and treatment plan; patient expressed understanding of the content. Y LEVEL INSTALLATION TECHNICIAN documented in this encounter Plan of Treatment Upcoming Encounters Date Type Specialty Care Team Description 03/25/2022 Office Visit Family Medicine Leslie Gonzalez M.D. [address] [place] [address] [phone] (Wo rk) documented as of this encounter Results FL LUMBAR SPINE INTERLAMINAR EPIDURAL INJECTION (06/04/2020 1:15 PM ENTRY LEVEL INSTALLATION TECHNICIAN) Specimen (Source) Anatomical Location Collection Method / Collectio n Time Received Time / Laterality Volume Narrative Chasidy Potts D.O. - 06/04/2020 1:3 0 PM ENTRY LEVEL INSTALLATION TECHNICIAN Chasidy Potts D.O. ? 06/04/2020 ??1:17 PM FL Lumbar Spine Interlaminar Epidural In jection Date/Time: 06/04/2020 1:08 PM Performed by: Chasidy Potts D.O. Authorized by: Earnestine Egan P.A. -C., M.S. Care team members present 1. Corine Issa, L.P.N. PROCEDURE SUMMARY Indications: Radiculitis Pre-procedural pain: 5/10 Site: lumbar Lumbar: interlaminar epidural steroid Interlaminar steroid injection: Midline L5-S1 Needle or RF cannula: Tuohy Needle size: 20 G Needle length: 3.5 in Patient position: prone IMAGING Fluoroscopic guidance: Yes ?? INJECTED MEDICATIONS Total volume of injectate (mL): 2 Total [...] own power. ? CONSENT Consent obtained: written PRE-PROCEDURE DETAILS Procedure purpose: ??Therapeutic Appropriate hand [...] Implants: 0 Earnestine Egan P.A.-C., M.S. IMG LYNSEY MARKS documented in this encounter Visit Diagnoses Diagnosis Neuropathy Peripheral - Primary Pain Low Back Unspecified Radiculopathy Pain Low Back Unspecified Radiculopathy documented in this encounter Care Teams Testing Director Relationship Specialty Start Date End Date Merrill Bee P.A.-C. PCP - General 11/18/[address] [place] [phone] documented as of this encounter
--- OUTSIDE RECORDS SUMMARY | 2022-03-22 15:47 | XMS_ITS | Encounter Summary ---
:1950 Author Organization [facility] Address [address] [place] [address] Care Team Providers Name Role Phone Merrill Bee P.A.-C. Primary Care Provider [phone] Reason for Referral Outpatient (Routine) - Closed Specialty Diagnoses / Procedures Referred By Contact Refer red To Contact Diagnoses Pain Low Back Unspecified Radiculopathy Earnestine Egan [facility] Procedures [place] Lumbar Spine Interlaminar Epidural Injection Estuardo, M.S. [address] [place] [address] Referral ID Status Reason Start Date Expiration Date Visits Requ ested Visits Authorized [id number] Closed 06/04/2020 06/04/2021 1 1 MING POOL SERVICE TECHNICIAN Reason for Visit Outpatient (Routine) - Closed Specialty Diagnoses / Procedures Referred By Contact Refer red To Contact Diagnoses Pain Low Back Unspecified Radiculopathy Earnestine Egan [place] Procedures [place] Lumbar Spine Interlaminar Epidural Injection Estuardo, M.S. [address] [place] [address] Referral ID Status Reason Start Date Expiration Date Visits Requ ested Visits Authorized [id number] Closed 06/04/2020 06/04/2021 1 1 Encounter Details Date Type Department Care Team Description 06/04/2020 Hospital Encounter Division of Pain Earnestine Egan Pain Low Back; Medicine in Estuardo Jurado, M.S. Radiculopathy [place], [place] 200 [facility] [address] [place] [phone] Social History Tobacco Use Types Packs/Day Years Used Date Smoking Tobacco: Former Cigarettes Quit : 1993 Smokeless Tobacco: Never Alcohol Use Standard Drinks/Week Comments Yes 16 (1 standard drink = 0.6 oz pure alcoh ol) Alcohol Habits Answer Date Recorded How often do you have a drink containing 4 or more times a w [place] 10/05/2021 alcohol? How many drinks containing alcohol [...] 1 to 4 times per year 07/2021 taoism services? Do you belong to any clubs [...] have completed or the highest Faustina, MEd, KNIT GOODS PRESS HAND, GIORGIO) degree you have received? Sex Assigned at Date Recorded Female 03/07/2018 9:31 AM CDT documented as of this encounter Last Filed Vital Signs Vital Sign Reading Time Taken Comments Blood Pressure 132/76 06/04/2020 1:16 PM SWIMMING POOL SERVICE TECHNICIAN Pulse 108 06/04/2020 1:16 PM SWIMMING POOL SERVICE TECHNICIAN Temperature - - Respiratory Rate 20 06/04/2020 12:36 PM SWIMMING POOL SERVICE TECHNICIAN Oxygen Saturation 98% 06/04/2020 1:16 PM SWIMMING POOL SERVICE TECHNICIAN Inhaled Oxygen Concentration - - Weight - [...] mouth 0 11/19/2015 021 (CETIRIZINE ORAL) daily. clobetasoL (TEMOVATE) Apply 1 application 30 g 0 04/2806/30/2020 0.05 % cream topically 2 (two) times a day. DULoxetine (CYMBALTA) 60 Take 2 capsules 180 [...] 01/27/2010 021 documented as of this encounter Procedure Notes Chasidy Potts D.O. - 06/04/2020 1:30 PM CSTAssociated Order(s): FL Lumbar Spine Interlaminar Epidural Injection Pre-Procedure Diagnose(s): Pain Low Back Unspecified Post-Procedure Diagnose(s): Pain Low Back Unspecified; Radiculopathy FL Lumbar Spine Interlaminar Epidural Injection Date/Time: 06/04/2020 1:08 PM Performed by: Chasidy Potts D.O. Authorized by: Earnestine Egan P.A.-C., M.S. Care team members present 1. Corine Issa, L.P.N. PROCEDURE SUMMARY Indications: Radiculitis Pre-procedural pain: 5/10 Site: lumbar Lumbar: interlaminar epidural steroid Interlaminar steroid injection: Midline L5-S1 Needle or RF cannula: Tuohy Needle size: 20 G Needle length: 3.5 in Patient position: prone IMAGING Fluoroscopic guidance: Yes INJECTED MEDICATIONS Total volume of injectate (mL): [...] their own power. CONSENT Consent obtained: written PRE-PROCEDURE DETAILS Procedure purpose: Therapeutic Appropriate hand [...] 0 Estimated blood loss: 0 Implants: 0 MING POOL SERVICE TECHNICIAN documented in this encounter Plan of Treatment Upcoming Encounters Date Type Specialty Care Team Description 03/25/2022 Office Visit Family Medicine Leslie Gonzalez M.D. [address] [place] [phone] (Wo rk) documented as of this encounter Procedures Procedure Name Priority Date/Time Associated Comments Diagnosis FL LUMBAR SPINE RAD - Routine 06/04/2020 1:15 Pain Low Back Results for this INTERLAMINAR (most inpatients PM SWIMMING POOL SERVICE TECHNICIAN Radiculopathy procedure are in EPIDURAL INJECTION and all the resul ts outpatients) section. documented in this encounter Results FL LUMBAR SPINE INTERLAMINAR EPIDURAL INJECTION (06/04/2020 1:15 PM SWIMMING POOL SERVICE TECHNICIAN) Specimen (Source) Anatomical Location Collection Method / Collectio n Time Received Time / Laterality Volume Narrative Chasidy Potts D.O. - 06/04/2020 1:3 0 PM SWIMMING POOL SERVICE TECHNICIAN Chasidy Potts D.O. ? 06/04/2020 ??1:17 [...] Visit Diagnoses Diagnosis Pain Low Back Unspecified Radiculopathy documented in this encounter Administered Medications Inactive Administered Medications - up to 3 most recent administrations Medication Order MAR Action Action Date Dose Rate Site betamethasone acetate & sodium Given 06/04/2020 1:08 PM SWIMMING POOL SERVICE TECHNICIAN 6 mg phosphate injection 6 mg (CELESTONE SOLUSPAN) 6 mg, injection, One-Time Injection, Starting on Tue06/04/20 at 1308, For 1 dose iohexoL 300 mg iodine/mL solution 1 mL Given 06/04/2020 1:08 PM SWIMMING POOL SERVICE TECHNICIAN 1 mL (OMNIPAQUE) 1 mL, injection, One-Time Injection, Starting on Tue06/04/20 at 1308, For 1 dose lidocaine 10 mg/mL (1 %) injection 1 mL Given 06/04/2020 1:08 PM SWIMMING POOL SERVICE TECHNICIAN 1 mL (XYLOCAINE) 1 mL, injection, One-Time Injection, Starting on Tue06/04/20 at 1308, For 1 dose documented in this encounter Care Teams Event Producer Relationship Specialty Start Date End Date Merrill Bee P.A.-C. PCP - General 11/18/[address] [place] [phone] documented as of this encounter
--- OUTSIDE RECORDS SUMMARY | 2022-03-22 15:47 | XMS_ITS | Encounter Summary ---
:1950 Author Organization [facility] Address [address] [place] [address] Care Team Providers Name Role Phone Merrill Bee P.A.-C. Primary Care Provider [phone] Encounter Details Date Type Department Care Team Description 04/08/2020 Orders Only [facility] Merrill Bee P.A.-C. [address] [place] [phone] (Wo rk) Social History Tobacco Use Types Packs/Day Years Used Date Smoking Tobacco: Former Cigarettes Quit : 1993 Smokeless Tobacco: Never Alcohol Use Standard Drinks/Week Comments Yes 16 (1 standard drink = 0.6 oz pure alcoh ol) Alcohol Habits Answer Date Recorded How often do you have a drink containing 4 or more times a w [employer] [place] 10/05/2021 alcohol? How many drinks containing alcohol [...] or relatives? How often do you attend oriental orthodox or 1 to 4 times per year 07/2021 sikhism services? Do you belong to any clubs or Yes 10/05/2021 organizations such as oriental orthodox groups, unions, fraternal or athletic groups, [...] have completed or the highest Faustina, MEd, WAITER/WAITRESS TAVERN, GIORGIO) degree you have received? Sex Assigned at Date Recorded Female 03/07/2018 9:31 AM CDT documented as of this encounter Plan of Treatment Upcoming Encounters Date Type Specialty Care Team Description 03/25/2022 Office Visit Family Medicine Leslie Gonzalez M.D. [address] [place] [phone] (Wo rk) documented as of this encounter Visit Diagnoses Not on filedocumented in this encounter Care Teams Cake Washer Relationship Specialty Start Date End Date Merrill Bee P.A.-C. PCP - General 11/18/16 [address] [place] [phone] documented as of this encounter
--- OUTSIDE RECORDS SUMMARY | 2022-03-22 15:47 | XMS_ITS | Encounter Summary ---
:1950 Author Organization [facility] Address [address] [place] [address] Care Team Providers Name Role Phone Merrill Bee P.A.-C. Primary Care Provider [phone] Reason for Visit Reason Comments Post Hospital Follow-up Encounter Details Date Type Department Care Team Description 06/23/2020 Clinical Communication [facility] [address] [address] [place], [place] [phone] (Work) [phone] Social History Tobacco Use Types Packs/Day Years Used Date Smoking Tobacco: Former Cigarettes Quit : 1993 Smokeless Tobacco: Never Alcohol Use Standard Drinks/Week Comments Yes 16 (1 standard drink = 0.6 oz pure alcoh ol) Alcohol Habits Answer Date Recorded How often do you have a drink containing 4 or more times a w [place] 10/05/2021 alcohol? How many drinks containing alcohol [...] 1 to 4 times per year 07/2021 spiritism services? Do you belong to any clubs [...] have completed or the highest Faustina, MEd, CROCHETER, GIORGIO) degree you have received? Sex Assigned at Date Recorded Female 03/07/2018 9:31 AM CDT documented as of this encounter Miscellaneous Notes Telephone Encounter - Negar Rothman, RGiovanyN. - 06/23/2020 11:26 AM CST See previous Post Hospital communication. REPAIRER Telephone Encounter - Holly Rae - 06/23/2020 11:24 AM CST Hospital: [facility] Diagnosis: bowel restriction Discharge date: 06/22 When to be seen: 06/30 Comments: REPAIRER documented in this encounter Plan of Treatment Upcoming Encounters Date Type Specialty Care Team Description 03/25/2022 Office Visit Family Medicine Leslie Gonzalez M.D. [address] [place] [phone] (Wo rk) documented as of this encounter Visit Diagnoses Not on filedocumented in this encounter Care Teams Harpsichord Maker Relationship Specialty Start Date End Date Merrill Bee P.A.-C. PCP - General 11/18/16 [address] [place] [phone] documented as of this encounter
--- OUTSIDE RECORDS SUMMARY | 2022-03-22 15:47 | XMS_ITS | Encounter Summary ---
:1950 Author Organization [facility] Address [address] [place] [address] Care Team Providers Name Role Phone Merrill Bee P.A.-C. 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 A.-C. [address] [phone] Referral ID Status Reason Start Date Expiration Date Visits Requ ested Visits Authorized [id number] Closed 03/24/2020 03/24/2021 1 1 Encounter Details Date Type Department Care Team Description 04/28/2020 Office Visit Department of Family Merrill Bee Sp inal Stenosis Lumbosacral Region (Primary Dx); Medicine, Preet Marte Hypertension Essential Primary; Clinic, in [address] [facility] [address] [place], [place] [phone] (Work) [phone] Social History Tobacco Use Types Packs/Day Years Used Date Smoking Tobacco: Former Cigarettes Quit : 1993 Smokeless Tobacco: Never Alcohol Use Standard Drinks/Week Comments Yes 16 (1 standard drink = 0.6 oz pure alcoh ol) Alcohol Habits Answer Date Recorded How often do you have a drink containing 4 or more times a w [place] 10/05/2021 alcohol? How many drinks containing alcohol [...] for the very basics like Not h daivd at all 10/05/2021 food, housing, medical care, [...] have completed or the highest Faustina, MEd, USED CAR LOT ATTENDANT, GIORGIO) degree you have received? Sex Assigned at Date Recorded Female 03/07/2018 9:31 AM CDT documented as of this encounter Last Filed Vital Signs Vital Sign Reading Time Taken Comments Blood Pressure 136/65 04/28/2020 8:47 AM LOG CHAIN WORKER Pulse 87 04/28/2020 8:47 AM LOG CHAIN WORKER Temperature 36.4 ??C (97.5 ??F) 04/28/2020 8:47 AM LOG CHAIN WORKER Respiratory Rate 14 04/28/2020 8:47 AM LOG CHAIN WORKER Oxygen Saturation - - Inhaled Oxygen Concentration - - Weight 95.2 kg (209 lb 14.1 oz) 04/28/2020 8:47 AM LOG CHAIN WORKER Height 168.5 cm (5' 6.34) 04/28/2020 8:47 AM LOG CHAIN WORKER Body Mass Index 33.53 04/28/2020 8:47 AM LOG CHAIN WORKER documented in this encounter Progress Notes Merrill Bee P.A.-C. - 04/28/2020 9:00 AM CST CHIEF COMPLAINT / REASON FOR VISIT Nicholas Simmons is a 69 y.o. female who presents for evaluation of Follow-up (follow-up from 03/24/2020 regarding blood pressure) and Neuropathy (neuropathy in feet bilaterally - complains of feet being cold and having sores). HISTORY OF PRESENT ILLNESS Nicholas presents today with a couple different concerns. I saw her earlier for elevation of her blood pressure. We adjusted her lisinopril and her readings have been much better. She continues to struggle with back pain. Her MRI was done we did review this today which showed some significant arthritic changes as well as disc bulging. She also has some erythema on her great toe. Her toes have been sweaty and this causes some inflammation and irritation. OBJECTIVE Vitals: 04/28/20 0847 BP: 136/65 BP Location: Right arm Patient Position: Sitting Cuff Size: Large Pulse: 87 Resp: 14 Temp: 36.4 ??C TempSrc: Temporal Weight: 95.2 kg Height: 168.5 cm Body mass index is 33.53 kg/m??. PHYSICAL EXAM In general she appears in no acute distress. Her blood pressure is better today Feet: She has a strong dorsalis pedis pulse on both her right and left foot. Both of her great toes do have some flaky irritated skin. This has the appearance of a possible herpetic gurmeet verses a sweaty sock dermatitis. Her capillary refill is immediate IMPRESSION / REPORT / PLAN #1 Spinal Stenosis Lumbosacral Region I reviewed her MRI with her in detail. She has a follow-up in [place] in May for a probable injection. #2 Hypertension Essential Primary Her blood pressure is continuing to be well controlled on this medication her electrolytes are good.Will leave her on this for now if her blood pressures trend above 140/90 she will let us know #3 Dermatitis I am going to treated with some clobetasol and have her try wearing some will socks to keep her feetdry. If she has any further questions or problems she will let us know otherwise follow up as needed. Total time spent with her was 25 minutes of which 20 was [id number] coordination of care and counseling Merrill Bee P.A.-C. CHAIN WORKER documented in this encounter Plan of Treatment Upcoming Encounters Date Type Specialty Care Team Description 03/25/2022 Office Visit Family Medicine Leslie Gonzalez M.D. [address] [place] [phone] (Wo rk) documented as of this encounter Visit Diagnoses Diagnosis Spinal Stenosis Lumbosacral Region - [facility] nicholas Hypertension Essential Primary Dermatitis documented in this encounter Care Teams Adjunct Political Science Instructor Relationship Specialty Start Date End Date Merrill Bee P.A.-C. PCP - General 11/18/[address] [place] [phone] documented as of this encounter
--- OUTSIDE RECORDS SUMMARY | 2022-03-22 15:47 | XMS_ITS | Encounter Summary ---
:1950 Author Organization [facility] Address [address] [place] [address] Care Team Providers Name Role Phone Merrill Bee P.A.-C. Primary Care Provider [phone] Encounter Details Date Type Department Care Team Description 03/27/2020 Clinical Communication Department of [facility] Merrill Bee, [facility], Preet Marte [facility], in [address] [address] [place], [place] [phone] (Work) [phone] Social History Tobacco Use Types Packs/Day Years Used Date Smoking Tobacco: Former Cigarettes Quit : 1993 Smokeless Tobacco: Never Alcohol Use Standard Drinks/Week Comments Yes 16 (1 standard drink = 0.6 oz pure alcoh ol) Alcohol Habits Answer Date Recorded How often do you have a drink containing 4 or more times a w [place] 10/05/2021 alcohol? How many drinks containing alcohol [...] or relatives? How often do you attend moravian or 1 to 4 times per year 07/2021 sikh services? Do you belong to any clubs or Yes 10/05/2021 organizations such as moravian groups, unions, fraternal or athletic groups, or [...] have completed or the highest Faustina, MEd, DIVERSIONAL THERAPIST, GIORGIO) degree you have received? Sex Assigned at Date Recorded Female 03/07/2018 9:31 AM CDT documented as of this encounter Miscellaneous Notes Telephone Encounter - Kyra Padilla, L.P.N. - 03/28/2020 11:49 AM CDT Per patients EMR MRI is scheduled for 04/01/[address] Telephone Encounter - Chinyere Wylie LGiovanyPGiovanyN. - 03/27/2020 12:17 PM CDT Attempted to contact Setph in regards to MRI. Want to inform her that MRI was ordered for [place] not for [facility]. Also attempted to call the number below ([facility] Radiology department to inform them that it was ordered for [place]. Messages left for Steph and Marilyn. Telephone Encounter - Cari Velazquez - 03/27/2020 11:06 AM CDT Reason for Communication: Hospital Rad Dept at [facility] has not received orders for MRI. Can Merrill fax it over again. Current Can Nursing/Provider leave a detailed message?: Yes Did the patient refuse triage through Nurse line? (for symptom based concerns): Action Needed: Please fax MRI orders to hospital again. Name of Medication (if relevant): documented in this encounter Plan of Treatment Upcoming Encounters Date Type Specialty Care Team Description 03/25/2022 Office Visit Family Medicine Leslie Gonzalez M.D. [address] [place] [phone] (Wo rk) documented as of this encounter Visit Diagnoses Not on filedocumented in this encounter Care Teams Plate And Frame Filter Operator Relationship Specialty Start Date End Date Merrill Bee P.A.-C. PCP - General 11/18/[address] [place] [phone] documented as of this encounter
--- OUTSIDE RECORDS SUMMARY | 2022-03-22 15:47 | XMS_ITS | Encounter Summary ---
:1950 Author Organization [facility] Address [address] [place] [address] Care Team Providers Name Role Phone Merrill Bee P.A.-C. Primary Care Provider [phone] Encounter Details Date Type Department Care Team Description 06/23/2020 Clinical Communication Department of [facility] Merrill Bee, [facility], Preet Marte [facility], in [address] [address] [place], [place] [phone] (Work) [phone] Social History Tobacco Use Types Packs/Day Years Used Date Smoking Tobacco: Former Cigarettes Quit : 1993 Smokeless Tobacco: Never Alcohol Use Standard Drinks/Week Comments Yes 16 (1 standard drink = 0.6 oz pure alcoh ol) Alcohol Habits Answer Date Recorded How often do you have a drink containing 4 or more times a w [place] 10/05/2021 alcohol? How many drinks containing alcohol [...] or relatives? How often do you attend congregational or 1 to 4 times per year 07/2021 restorationist services? Do you belong to any clubs or Yes 10/05/2021 organizations such as congregational groups, unions, fraternal or athletic groups, or school groups? How often do you attend meetings of the More than 4 times [facility] year 10/05/2021 clubs or organizations you belong [...] have completed or the highest Faustina, MEd, PUBLICITY CONSULTANT, GIORGIO) degree you have received? Sex Assigned at Date Recorded Female 03/07/2018 9:31 AM CDT documented as of this encounter Miscellaneous Notes Telephone Encounter - Mendy Davis R.N. - 06/23/2020 11:04 AM CST SUBJECTIVE REASON FOR CALL Post-Hospital follow-up phone call with patient. 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 Concerns/questions: Patient has no questions or concerns. Symptom Review No new symptoms since discharge from the hospital. Activities of Daily Living Patient is independent with activities of daily living. Has the patient had a fall since discharge: no. Has ambulation changed since hospitalization: no. Difficulty ambulating: no. The patient lives alone. Patient identified if needing assistance, she could depend on sister and neighbor. Wounds/Incisions/Lines, Drains and Airways None Medication Status Current medication list was reviewed and updated as needed. Reports medication is self managed. Medications concerns: none. Medication compliance for current medications: yes. High Risk Medications None Home Services Utilized The patient is not currently receiving home health services. Equipment/Supplies for Home Use None ordered Assessment/Plan Follow-up Appointment PCP Follow-up appointment scheduled: yes; scheduled on 06/30/2020. The patient plans to go to the appointment and has no concerns about getting there. Specialty Follow-up is n/a. Recommendations Referral actions: MTM referral offered and declined at this time. Scheduled for post-hospital followup. Additional recommendations: appointment ordered/scheduled as per TCM guidelines. Disposition/Recommendation: patient transferred to the appointment desk and self-care is appropriateat this time, patient encouraged to call back with questions. Education: patient/caller able to teach back. Caller agreeable to plan of care: yes. RATORY VETERINARIAN documented in this encounter Plan of Treatment Upcoming Encounters Date Type Specialty Care Team Description 03/25/2022 Office Visit Family Medicine Leslie Gonzalez M.D. [address] [place] [phone] (Wo rk) documented as of this encounter Visit Diagnoses Not on filedocumented in this encounter Care Teams Youth Coordinator Relationship Specialty Start Date End Date Merrill Bee P.A.-C. PCP - General 11/18/16 [address] [place] [phone] documented as of this encounter
--- OUTSIDE RECORDS SUMMARY | 2022-03-22 15:47 | XMS_ITS | Encounter Summary ---
:1950 Author Organization [facility] Address [address] [place] [address] Care Team Providers Name Role Phone Merrill Bee P.A.-C. Primary Care Provider [phone] Encounter Details Date Type Department Care Team Description 04/24/2020 Hospital Encounter Department of [facility] Laboratory Medicine Waldo Momin Essential Primary in [address] [address] [place], [place] [phone] (Work) [phone] Social History Tobacco Use Types Packs/Day Years Used Date Smoking Tobacco: Former Cigarettes Quit : 1993 Smokeless Tobacco: Never Alcohol Use Standard Drinks/Week Comments Yes 16 (1 standard drink = 0.6 oz pure alcoh ol) Alcohol Habits Answer Date Recorded How often do you have a drink containing 4 or more times a w [place] 10/05/2021 alcohol? How many drinks containing alcohol [...] have completed or the highest Faustina, MEd, ALLIGATOR HUNTER, GIORGIO) degree you have received? Sex Assigned [...] Take 1 tablet (40 90 tablet 3 07/31/ 2020 02/16/2021 40 mg tablet mg total) by mouth [...] Office Visit Family Medicine Leslie Gonzalez M.D. [address] [place] [phone] (Wo rk) documented as of this encounter Procedures Procedure Name Priority Date/Time Associated Diagnosis Comme nts BASIC METABOLIC Routine 04/24/2020 9:13 AM Hypertension Result s for this PANEL, S/P MIRROR POLISHER Essential Primary procedure are in the results section. documented in this encounter Results Basic Metabolic Panel (04/24/2020 9:13 AM MIRROR POLISHER) athologist Signature Potassium, P 5.1 3.6 - 5.2 04/24/2020 [place] mmol/L 11:10 AM MIRROR POLISHER Sodium, P 135 135 - 145 04/24/2020 [place] mmol/L 11:10 AM MIRROR POLISHER Chloride, P 98 98 - 107 04/24/2020 [place] mmol/L 11:10 AM MIRROR POLISHER Bicarbonate, P 26 22 - 29 04/24/2020 [place] mmol/L 11:10 AM MIRROR POLISHER Anion Gap, P 11 7 - 15 04/24/2020 [place] 11:10 AM MIRROR POLISHER BUN (Blood Urea 20 6 - 21 04/24/2020 [facility] Nitrogen), P mg/dL 11:10 AM MIRROR POLISHER Creatinine 0.86 0.59 - 04/24/2020 [place] 1.04 mg/dL 11:10 AM MIRROR POLISHER eGFR-Black/Afric 79 >=60 04/24/2020 [facility] an Japanese mL/min/BSA 11:10 AM MIRROR POLISHER Comment: ----ADDITIONAL INFORMATION---- Estimated GFR calculated using the 2009 CKD_EPI creatinine equation. eGFR Non-Black/ 68 >=60 mL/min/BSA 04/24/2020 11:10 AM MIRROR POLISHER [facility] Comment: ----ADDITIONAL INFORMATION---- Estimated GFR calculated using the 2009 CKD_EPI creatinine equation. Calcium, Total, P 9.7 8.8 - 10.2 mg/dL 04/24/2020 11:1 0 AM MIRROR POLISHER [facility] Glucose, P 123 70 - 140 mg/dL 04/24/2020 11:10 AM MIRROR POLISHER [facility] Specimen Anatomical Collection Method Collection Time Receive d Time (Source) Location / / Volume Laterality Blood (Blood, 04/24/2020 9:13 AM 04/24/20 20 Venous) MIRROR POLISHER 10:47 AM MIRROR POLISHER Merrill Bee P.A.-C. LAB BLOOD ADD-ON Performing Organization Address City/State/ZIP Code Phon e Number [facility] [address] [place] [id number] [place] [address] System in [place] [address] [place] [address] documented in this encounter Visit Diagnoses Diagnosis Hypertension Essential Primary documented in this encounter Care Teams Residential Carpet Installer Relationship Specialty Start Date End Date Merrill Bee P.A.-C. PCP - General 11/18/[address] [place] [phone] documented as of this encounter
--- OUTSIDE RECORDS SUMMARY | 2022-03-22 15:47 | XMS_ITS | Encounter Summary ---
:[address] [facility] Address [address] [place] [address] Care Team Providers Name Role Phone Merrill Bee P.A.-C. Primary Care Provider [phone] Reason for Referral Outpatient (Routine) - Closed Specialty Diagnoses / Procedures Referred By Contact Refer red To Contact Family Medicine Merrill Bee P. A.-C. [address] [phone] Referral ID Status Reason Start Date Expiration Date Visits Requ ested Visits Authorized [id number] Closed 12/01/2018 12/01/2019 1 1 Reason for Visit Reason Comments Follow-up Go over labs from 11/17/18 Outpatient (Routine) - Closed Specialty Diagnoses / Procedures Referred By Contact Refer red To Contact Family Merrill Buck P. A.-C. [address] [phone] Referral ID Status Reason Start Date Expiration Date Visits Requ ested Visits Authorized [id number] Closed 11/18/2017 11/18/2018 1 1 Encounter Details Date Type Department Care Team Description 12/01/2018 Comprehensive Visit Department of Gene Bee Peripheral (Primary Dx); Merrill Herrmann General Med ical [facility]; in [address] Hypertension Essential Primary; [place], [place] Reflux Esophageal; [address] [address] Hyperkalemia; ERIKA MATIAS [phone] Stroke ([facility]); [id number] (Work) Onychomycosis [phone] Social History Tobacco Use Types Packs/Day Years Used Date Smoking Tobacco: Former Cigarettes Quit : 1993 Smokeless Tobacco: Never Alcohol Use Standard Drinks/Week Comments Yes 16 (1 standard drink = 0.6 oz pure alcoh ol) Alcohol Habits Answer Date Recorded How often do you have a drink containing 4 or more times a w [place] 10/05/2021 alcohol? How many drinks containing alcohol [...] have completed or the highest Faustina, MEd, CITY SURVEYOR, GIORGIO) degree you have received? Sex Assigned at Date Recorded Female 03/07/2018 9:31 AM CDT documented as of this encounter Last Filed Vital Signs Vital Sign Reading Time Taken Comments Blood Pressure 127/68 12/01/2018 8:50 AM CDT Pulse 84 12/01/2018 8:50 AM CDT Temperature 36.6 ??C (97.9 ??F) 12/01/2018 8:50 AM CDT Respiratory Rate 20 12/01/2018 8:50 AM CDT Oxygen Saturation - - Inhaled Oxygen Concentration - - Weight 88.3 kg (194 lb 8.9 oz) 12/01/2018 8:50 AM CDT Height - - Body Mass Index 30.9 11/18/2017 9:39 AM CDT documented in this encounter H&P Notes Merrill Bee P.A.-C. - 12/01/2018 9:15 AM CDT CHIEF COMPLAINT / REASON FOR VISIT Steph Simmons is a 68 y.o. female who presents for evaluation of Follow-up (Go over labs from 11/17/18). HISTORY OF PRESENT ILLNESS Steph presents today for her yearly medication review. For the most part she is doing well she has some chronic aches and pains but for the most part these are stable. She has a history of a stroke that left her with some vision loss years ago and this is stable. Her other medical problems have been well controlled she had her blood drawn prior to this visit. PAST MEDICAL HISTORY: Patient Active Problem List Diagnosis ??? Stroke (HCC) ??? Reflux Esophageal ??? Hypercholesterolemia ??? Neuropathy [...] Standard drinks or equivalent per week Frequency: 2-3 times a week Drinks per session: 3 [...] DULoxetine (CYMBALTA) [address] capsule Take 1 capsule (60 mg total) by mouth daily. 90 capsule 3 ??? esomeprazole (NexIUM) [address] capsule Take 20 mg by mouth daily. ??? GLUCOSAMINE/CHONDROITIN SULF A (GLUCOSAMINE-CHONDROITIN ORAL) daily. ??? latanoprost (for_XALATAN) 0.005 % ophthalmic solution Administer 1 drop into both eyes at bedtime. ??? lisinopril-hydroCHLOROthiazide (PRINZIDE,ZESTORETIC) 10-12.5 mg per tablet Take 1 tablet by mouth daily. 90 tablet 3 ??? meclizine (ANTIVERT) 25 mg tablet Take 1 tablet (25 mg total) by mouth 3 (three) times a day as needed for dizziness. 90 tablet 3 ??? MULTIVITAMIN ORAL daily. ??? valACYclovir (VALTREX) 1000 mg tablet Take 1 tablet (1,000 mg total) by mouth 3 (three) times a day for 3 days. 9 tablet 11 ??? VIT C/VIT E/LUTEIN/MIN/OMEGA-3 (OCUVITE ORAL) Take 1 tablet by mouth daily. ??? atorvastatin (LIPITOR) 40 mg tablet Take 1 tablet (40 mg total) by mouth at bedtime. 90 tablet 3 No current facility-administered medications for this visit. ALLERGIES: Allergies Allergen Reactions ??? Amoxicillin Diarrhea ??? Levofloxacin Hives ??? Morphine Hives ??? Piroxicam Other (see comments) swollen hands and feet, ankles ??? Pregabalin Other (see comments) fatigue, edema at high dose OBJECTIVE Vitals: 12/01/18 0850 BP: 127/68 Pulse: 84 Resp: 20 Temp: 36.6 ??C TempSrc: Temporal Weight: 88.3 kg Body mass index is 30.9 kg/m??. PHYSICAL EXAMINATION General: Patient appears in no acute distress. ENT: TMs no erythema. Throat no erythema. Neck: No lymphadenopathy. No thyroid masses. Heart: Regular rate and rhythm. No murmurs. Lungs: Clear to auscultation. Abdomen: Soft and nontender to palpation. IMPRESSION / REPORT / PLAN #1 Neuropathy Peripheral This is stable and seems to be doing better as she has done yoga #2 General Medical Examination Adult Overall she maintains an active lifestyle she has a good social life as well I encouraged her to continue with this #3 Hypercholesterolemia This is well controlled continue her statin #4 Hypertension Essential Primary This is well controlled continue her medication #5 Reflux Esophageal This is well controlled she buys Nexium [id number] #6 Hyperkalemia Her potassium was elevated on her blood draw prior to this visit no other significant abnormalities were noted I will repeat this today #7 Stroke (HCC) This is stable no changes #8 Onychomycosis This is done well we treated this in the past and it has done well Merrill Bee P.A.-C. documented in this encounter Plan of Treatment Upcoming Encounters Date Type Specialty Care Team Description 03/25/2022 Office Visit Family Medicine Leslie Gonzalez M.D. [address] [place] [phone] (Wo rk) Scheduled Referrals Name Type Priority Associated Diagnoses Order S centervilledule Family Medicine Outpatient Referral Routine Expec marc: office visit 12/02/2019 (clinic) (Approximate), Expires: 12/01/2021 documented as of this encounter Procedures Procedure Name Priority Date/Time Associated Diagnosis Comme nts POTASSIUM, S/P Routine 12/01/2018 11:46 AM General Medical Res ults for this CDT Examination Adul t procedure are in Hypercholesterol emia the results Hypertension Essential secti on. Primary Hyperkalemia documented in this encounter Results (ABNORMAL) Lipid Panel (01/01/2020 8:08 AM CDT) P athologist Signature Cholesterol, 179 mg/dL 01/01/2020 [place] Total 11:43 AM CDT Comment: ----REFERENCE VALUE---- Desirable: < 200 Borderline high: 200 - 239 High: > or = 240 Triglycerides 228 (H) mg/dL 01/01/2020 11:43 AM CDT OW AT Comment: ----REFERENCE VALUE---- Normal: <150 Borderline high: 150-199 High: 200-499 Very high: > or =500 Cholesterol, HDL 60 >=50 mg/dL 01/01/2020 11:43 AM CD T [facility] Calculated LDL 73 mg/dL 01/01/2020 11:43 AM CDT O ROGERIO Comment: ----REFERENCE VALUE---- Desirable: <100 Above Desirable: 100-129 Borderline high: 130-159 High: 160-189 Very high: > or =190 Cholesterol, Non-HDL, Calculated 119 mg/dL 020 11:43 AM CDT [facility] Comment: ----REFERENCE VALUE---- Desirable: <130 Above Desirable: 130-159 Borderline high: 160-189 High: 190-219 Very high: > or =220 Specimen Anatomical Collection Method Collection Time Receive d Time (Source) Location / / Volume Laterality Blood (Blood, 01/01/2020 8:08 AM 01/01/20 20 Venous) CDT 10:25 AM CDT Merrill Bee P.A.-C. LAB BLOOD ADD-ON Performing Organization Address City/State/ZIP Code Phon e Number [facility]- [address] [place] [address] [place] [address] System in [place] [address] [facility] Comprehensive Metabolic Panel (01/01/2020 8:08 AM CDT) P athologist Signature Potassium, P 4.7 3.6 - 5.2 01/01/2020 [place] mmol/L 11:43 AM CDT Sodium, P 138 135 - 145 01/01/2020 [place] mmol/L 11:43 AM CDT Chloride, P 98 98 - 107 01/01/2020 [place] mmol/L 11:43 AM CDT Bicarbonate, P 28 22 - 29 01/01/2020 [place] mmol/L 11:43 AM CDT Anion Gap, P 12 7 - 15 01/01/2020 [place] 11:43 AM CDT BUN (Blood Urea 17 6 - 21 01/01/2020 [place] Nitrogen), P mg/dL 11:43 AM CDT Creatinine 0.85 0.59 - 01/01/2020 [place] 1.04 mg/dL 11:43 AM CDT eGFR-Black/Afric 80 >=60 01/01/2020 [place] an [place]at[place] mL/min/BSA 11:43 AM CDT Comment: ----ADDITIONAL INFORMATION---- Estimated GFR calculated using the 2009 CKD_EPI creatinine equation. eGFR Non-Black/ 69 >=60 mL/min/BSA 01/01/2020 11:43 AM CDT [facility] Comment: ----ADDITIONAL INFORMATION---- Estimated GFR calculated using the 2009 CKD_EPI creatinine equation. Calcium, Total, P 9.9 8.8 - 10.2 mg/dL 01/01/2020 11:4 3 AM CDT [place] Glucose, P 129 70 - 140 mg/dL 01/01/2020 11:43 AM CDT [facility] Protein, Total, P 6.9 6.3 - 7.9 g/dL 01/01/2020 11:43 AM CDT [place] Albumin, P 4.5 3.5 - 5.0 g/dL 01/01/2020 11:43 AM CDT [place] Aspartate Aminotransferase 26 8 - 43 U/L 01/01/2020 1 1:43 AM CDT [place] (AST), P Alkaline Phosphatase, P 75 35 - 104 U/L 01/01/2020 11 :43 AM CDT [facility] Alanine Aminotransferase (ALT), 29 7 - 45 U/L 020 11:43 AM CDT [facility] P Bilirubin, Total, P 0.6 <=1.2 mg/dL 01/01/2020 11:43 A M CDT [place] Specimen Anatomical Collection Method Collection Time Receive d Time (Source) Location / / Volume Laterality Blood (Blood, 01/01/2020 8:08 AM 01/01/20 20 Venous) CDT 10:25 AM CDT Merrill Bee P.A.-C. LAB BLOOD ADD-ON Performing Organization Address City/State/ZIP Code Phon e Number [facility]- [address] [address] [place] [address] System in [place] [address] Potassium (12/01/2018 11:46 AM CDT) P athologist Signature Potassium, S 5.1 3.6 - 5.2 12/01/2018 mmol/L 3:47 PM CDT Specimen Anatomical Collection Method Collection Time Receive d Time (Source) Location / / Volume Laterality Blood (Blood, 12/01/2018 11:46 12/01/2018 3:30 Venous) AM CDT PM CDT Merrill Bee P.A.-C. LAB BLOOD ADD-ON Performing Organization Address City/State/ZIP Code Phon e Number [facility] [address] [place] [address] LAB documented in this encounter Visit Diagnoses Diagnosis Neuropathy Peripheral - Primary General Medical Examination Adult Hypercholesterolemia Hypertension Essential Primary Reflux Esophageal Hyperkalemia Stroke (HCC) Onychomycosis documented in this encounter Care Teams Integration Software Engineer Relationship Specialty Start Date End Date Merrill Bee P.A.-C. PCP - General 11/18/16 [address] [place] [address] documented as of this encounter
--- OUTSIDE RECORDS SUMMARY | 2022-03-22 15:47 | XMS_ITS | Encounter Summary ---
:1950 Author Organization [facility] Address [address] [place] [address] Care Team Providers Name Role Phone Merrill Bee P.A.-C. Primary Care Provider [phone] Encounter Details Date Type Department Care Team Description 01/01/2020 Hospital Encounter Department of Rohit General Medical Examination Adult; Laboratory Medicine Waldo Momin Hypercholesterolemia; in [address] Hypertension Essential Primary; [place], [place] Hyperkalemia [address] [address] [place], [place] [phone] [address] (Work) [phone] Social History Tobacco Use Types Packs/Day Years Used Date Smoking Tobacco: Former Cigarettes Quit : 1993 Smokeless Tobacco: Never Alcohol Use Standard Drinks/Week Comments Yes 16 (1 standard drink = 0.6 oz pure alcoh ol) Alcohol Habits Answer Date Recorded How often do you have a drink containing 4 or more times a w [place] 10/05/2021 alcohol? How many drinks containing alcohol [...] or relatives? How often do you attend buddhist or 1 to 4 times per year 07/2021 evangelical services? Do you belong to any clubs or Yes 10/05/2021 organizations such as buddhist groups, unions, fraternal or athletic groups, or school groups? How often do you attend meetings of the More than 4 times [facility] year 10/05/2021 clubs or organizations [...] have completed or the highest Faustina, MEd, CAMP PROGRAM DIRECTOR, GIORGIO) degree you have received? Sex Assigned [...] Visit Family Medicine Leslie Gonzalez M.D. [address] [place] [phone] (Wo rk) documented as of this encounter Procedures Procedure Name Priority Date/Time Associated Comments Diagnosis LIPID PANEL, S Routine 01/01/2020 8:08 AM General Medical Resu lts for this CDT Examination Adul t procedure are in Hypercholesterolemi the resu lts a section. Hypertension Essential Primar y Hyperkalemia COMPREHENSIVE Routine 01/01/2020 8:08 AM General Medical Resul ts for this METABOLIC PANEL, S/P CDT Examination Adult procedure are in Hypercholesterolemi the resu lts a section. Hypertension Essential Primar y Hyperkalemia documented in this encounter Results (ABNORMAL) [...] Organization Address City/State/ZIP Code Phon e Number [facility]- [address] [place] [address] [place] [address] System in [place] [address] Comprehensive Metabolic Panel (01/01/2020 8:08 AM CDT) [...] CDT eGFR-Black/Afric 80 >=60 01/01/2020 [place] an Czech mL/min/BSA 11:43 AM CDT Comment: ----ADDITIONAL INFORMATION---- [...] Organization Address City/State/ZIP Code Phon e Number [facility]- [address] [place] [address] [place] [address] System in [place] [address] [facility] documented in this encounter Visit Diagnoses Diagnosis General Medical Examination Adult Hypercholesterolemia Hypertension Essential Primary Hyperkalemia documented in this encounter Care Teams Lighting Engineer Relationship Specialty Start Date End Date Merrill Bee P.A.-C. PCP - General 11/18/16 [address] [place] [address] documented as of this encounter
--- OUTSIDE RECORDS SUMMARY | 2022-03-22 15:47 | XMS_ITS | Encounter Summary ---
:1950 Author Organization [facility] Address [address] [place] [address] Care Team Providers Name Role Phone Merrill Bee P.A.-C. Primary Care Provider [phone] Encounter Details Date Type Department Care Team Description 11/20/2018 Hospital Encounter Department of Cielo Bee Mammogram Radiology in [place] Momin Breast Cancer [place], [place] [address] [facility] [address] [place] [phone] Social History Tobacco Use Types Packs/Day Years Used Date Smoking Tobacco: Former Cigarettes Quit : 1993 Smokeless Tobacco: Never Alcohol Use Standard Drinks/Week Comments Yes 16 (1 standard drink = 0.6 oz pure alcoh ol) Alcohol Habits Answer Date Recorded How often do you have a drink containing 4 or more times a w [place] 10/05/2021 alcohol? How many drinks containing alcohol [...] or slept in a snf (including now)? Sex Assigned at Date Recorded Female 03/07/2018 [...] Take 1 tablet (40 90 tablet 3 12/01/2018 mg tablet mg total) by mouth at bedtime. Bifidobacterium infantis Take 1 capsule by 0 12/0506/30/2020 (ALIGN) 4 mg capsule mouth daily. BILBERRY ORAL bilberry See 0 04/09/2013 0 Instructions, Takes 1 cap daily CETIRIZINE HCL Take by mouth 0 11/19/2015 021 (CETIRIZINE ORAL) daily. DULoxetine (CYMBALTA) 60 TAKE 1 CAPSULE BY 90 capsule 3 10/0512/01/[address] capsule MOUTH ONCE DAILY lisinopril-hydroCHLOROthi Take 1 tablet by 90 tablet 3 10/201712/01/2018 azide mouth daily. (PRINZIDE,ZESTORETIC) 10-12.5 mg per tablet meclizine (ANTIVERT) 25 Take 1 tablet (25 90 tablet 3 03/1012/01/2018 mg tablet mg total) by mouth 3 (three) times a day as needed for dizziness. MULTIVITAMIN ORAL daily. 0 01/27/2010 021 valACYclovir (VALTREX) 1 12/23/2017 1000 mg tablet documented as of this encounter Plan of Treatment Upcoming Encounters Date Type Specialty Care Team Description 03/25/2022 Office Visit Family Medicine Leslie Gonzalez M.D. [address] [place] [phone] (Wo rk) documented as of this encounter Procedures Procedure Name Priority Date/Time Associated Comments Diagnosis BI BREAST RAD - Routine 11/20/2018 2:43 Screening Results for this SCREENING (most inpatients PM CDT Mammogram Breast procedu re are in BILATERAL and all Cancer the results outpatients) section. documented in this encounter Results BI Breast Screening Bilateral (11/20/2018 2:43 PM CDT) Anatomical Region Laterality Modality Breast, Breast Imaging RST LOS, Breast Imaging ARZ LOS, Shahrzad st Bilateral Mammography Imaging FLA LOS Specimen (Source) Anatomical Collection Method Collection Time Re ceived Time Location / / Volume Laterality 11/20/2018 3:06 PM CDT Impressions 11/20/2018 3:07 PM CDT Negative. RECOMMENDATION: ??Annual Screening Mammo gram ASSESSMENT: ??BI-RADS: 1: Negative. Narrative 11/20/2018 3:07 PM CDT EXAM: ??BI BREAST SCREENING BILATERAL Current study was evaluated with a Compu ter Aided Detection (CAD) system. INDICATION: ??Screening mammogram. COMPARISON: ??Prior exam(s) were availab le and reviewed for comparison. DENSITY: ??c. The breast(s) are heteroge neously dense, which may obscure small masses. FINDINGS: ??No mammographic findings of malignancy. Procedure Note aMrtinez Bernard M.D. - 11/20/2018Forma tting of this note might be different [...] Cancer documented in this encounter Care Teams Chief Engineer Production Relationship Specialty Start Date End Date Merrill Bee P.A.-C. PCP - General 11/18/16 [address] [place] [address] documented as of this encounter
--- OUTSIDE RECORDS SUMMARY | 2022-03-22 15:47 | XMS_ITS | Encounter Summary ---
:1950 Author Organization [facility] Address [address] [place] [address] Care Team Providers Name Role Phone Merrill Bee P.A.-C. Primary Care Provider [phone] Reason for Referral MRI/CAT/PET Scan (Routine) - Closed Specialty Diagnoses / Procedures Referred By Contact Refer red To Contact Radiology Diagnoses Pain Low Back Unspecified Merrill Bee P.A.-C. [facility] Region Procedures MR Lumbar Spine without IV Contrast [address] [place] [address] Referral ID Status Reason Start Date Expiration Date Visits Requ ested Visits Authorized [id number] Closed 03/24/2020 03/24/2021 1 1 Reason for Visit MRI/CAT/PET Scan (Routine) - Closed Specialty Diagnoses / Procedures Referred By Contact Refer red To Contact Radiology Diagnoses Pain Low Back Unspecified Merrill Bee P.A.-C. [facility] Region Procedures MR Lumbar Spine without IV Contrast [address] [place] [address] Referral ID Status Reason Start Date Expiration Date Visits Requ ested Visits Authorized [id number] Closed 03/24/2020 03/24/2021 1 1 Encounter Details Date Type Department Care Team Description 04/01/2020 Hospital Encounter Department of Radiology Kathleen Bee, Pain Low Back in [facility] [place] [address] [facility] [address] ERIKA Durbin [phone] Social History Tobacco Use Types Packs/Day Years Used Date Smoking Tobacco: Former Cigarettes Quit : 1993 Smokeless Tobacco: Never Alcohol Use Standard Drinks/Week Comments Yes 16 (1 standard drink = 0.6 oz pure alcoh ol) Alcohol Habits Answer Date Recorded How often do you have a drink containing 4 or more times a w [place] 10/05/2021 alcohol? How many drinks containing alcohol [...] have completed or the highest Faustina, MEd, COMMERCIAL REAL ESTATE UNDERWRITER, GIORGIO) degree you have received? Sex Assigned [...] 12/0506/30/2020 (ALIGN) 4 mg capsule mouth daily. CETIRIZINE [...] Office Visit Family Medicine Leslie Gonzalez M.D. [address] [place] [address] [place], [place] [phone] (Wo rk) documented as of this encounter Procedures Procedure Name Priority Date/Time Associated Comments Diagnosis MR LUMBAR SPINE RAD - Routine 04/01/2020 1:07 Pain Low Back Results for this WITHOUT IV (most inpatients PM CDT procedure a re in CONTRAST and all the results outpatients) section. documented in this encounter Results MR Lumbar Spine without IV Contrast (04/01/2020 1:07 PM CDT) Anatomical Region Laterality Modality Lumbar Spine, Neuroradiology RST LOS, Neuroradiology N/A Magnetic Resonance ARZ LOS, Neuroradiology FLA LOS Specimen (Source) Anatomical Collection Method [...] L5-S1. Merrill Bee P.A.-C. IMG MRI PROCEDURES documented in this encounter Visit Diagnoses Diagnosis Pain Low Back Unspecified documented in this encounter Care Teams Showroom Sales Consultant Relationship Specialty Start Date End Date Merrill Bee P.A.-C. PCP - General 11/18/[address] [place] [phone] documented as of this encounter
--- OUTSIDE RECORDS SUMMARY | 2022-03-22 15:48 | XMS_ITS | Encounter Summary ---
:1950 Author Organization [facility] Address [address] [place] [address] Care Team Providers Name Role Phone Merrill Bee P.A.-C. Primary Care Provider [phone] Encounter Details Date Type Department Care Team Description 03/26/2017 Orders Only Department of Family Merrill Bee, Medicine, [facility], P.AGiovany -C. in [facility] [address] [facility] [address] [place] [address] [place] [address] [phone] Social History Tobacco Use Types Packs/Day Years Used Date Smoking Tobacco: Former Alcohol Habits Answer Date Recorded How often do you have a drink containing 4 or more times a w [place] 10/05/2021 alcohol? How many drinks containing alcohol [...] or relatives? How often do you attend christianity or 1 to 4 times per year 07/2021 anabaptism services? Do you belong to any clubs or Yes 10/05/2021 organizations such as christianity groups, unions, fraternal or athletic groups, or [...] or slept in a fpc (including now)? Sex Assigned at Date Recorded Female 03/07/2018 9:31 AM CDT documented as of this encounter Plan of Treatment Upcoming Encounters Date Type Specialty Care Team Description 03/25/2022 Office Visit Family Medicine Leslie Gonzalez M.D. [address] [place] [phone] (Wo rk) documented as of this encounter Visit Diagnoses Not on filedocumented in this encounter Care Teams Underwriting Support Specialist Relationship Specialty Start Date End Date Merrill Bee P.A.-C. PCP - General 11/18/16 [address] [place] [address] documented as of this encounter
--- OUTSIDE RECORDS SUMMARY | 2022-03-22 15:48 | XMS_ITS | Encounter Summary ---
:1950 Author Organization [facility] Address [address] [place] [address] Care Team Providers Name Role Phone Merrill Bee P.A.-C. Primary Care Provider [phone] Encounter Details Date Type Department Care Team Description 02/08/2017 Hospital Encounter HX [facility], P.AGiovany-CG[facility] [address] [place] [phone] (Wo rk) Social History Tobacco Use Types Packs/Day Years Used Date Smoking Tobacco: Former Alcohol Habits Answer Date Recorded How often do you have a drink containing 4 or more times a w robinson 10/05/2021 alcohol? How many drinks containing alcohol [...] 1 to 4 times per year 07/2021 cheondoism services? Do you belong to any clubs [...] or slept in a longterm (including now)? Sex Assigned at Date Recorded Female 03/07/2018 9:31 AM CDT documented as of this encounter Last Filed Vital Signs Vital Sign Reading Time Taken Comments Blood Pressure 136/68 02/08/2017 2:10 PM CDT Pulse 72 02/08/2017 2:10 PM CDT Temperature - - Respiratory Rate 16 02/08/2017 2:10 PM CDT Oxygen Saturation - - Inhaled Oxygen Concentration - - Weight 86 kg (189 lb 7.8 oz) 02/08/2017 2:10 PM CDT Height 168 cm (5' 6.14) 02/08/2017 2:10 PM CDT Body Mass Index 30.45 02/08/2017 2:10 PM CDT documented in this encounter Medications at Time [...] EXTRA STRENGTH) 500 mg (three) times a day. tablet aspirin 325 mg tablet Take 1 tablet by 0 06/03/20 16 06/30/2020 mouth daily. atorvastatin (LIPITOR) 40 Take 1 tablet by 0 06/0 10/2016 11/18/2017 mg tablet mouth at bedtime. Bifidobacterium infantis Take 1 capsule by 0 /02/201106/30/2020 (ALIGN) 4 mg capsule mouth daily. BILBERRY ORAL bilberry See 0 04/09/2013 0 Instructions, Takes 1 cap daily CETIRIZINE HCL Take by mouth daily. 0 11/19/2015 07/14/2020 (CETIRIZINE ORAL) MULTIVITAMIN ORAL daily. 0 01/27/2010 021 naproxen sodium (ALEVE) Take 2 tablets by 0 10/0511/18/2017 220 mg tablet mouth every 8 (eight) hours as needed. pantoprazole (PROTONIX) Take 1 tablet by 0 201611/18/2017 40 mg EC tablet mouth daily. raNITIdine (ZANTAC) 300 Take 1 tablet by 0 201611/18/2017 mg tablet mouth at bedtime. sennosides (SENNA) 8.6 mg Take 1 tablet by 0 04/0711/18/2017 tablet mouth 2 (two) times a day as needed. traMADol (for_ULTRAM) 50 Take 1 tablet by 0 09/2011/18/2017 mg tablet mouth every 4 (four) hours as needed. documented as of this encounter Progress Notes Margo Humphries P.A.-C. - 02/08/2017 2:02 PM CDT [id number] CHIEF COMPLAINT/REASON FOR VISIT Right knee pain. HISTORY OF PRESENT ILLNESS Steph is a very pleasant 66-year-old female patient, who presents to the clinic today for re-evaluation of right knee pain. Patient states that approximately 4 weeks ago she tripped over a cord of a fanand she states she was carrying a tray and she came down really hard on both of her knees, then after that the right hurt much more than the left. She states she had an extreme amount of swelling in that right knee located mostly just underneath the patella. She states that the swelling was apparent not right away but approximately a day later. She states she did not have any known twisting mechanism. She states that she has been able to walk and does not feel like the knee is going to give out or an ything of that sort. The patient states that about 2 weeks later she decided to make an appointment because she was still having pain with weightbearing especially when she was going up and down the stairs. She states that then the day after she made the appointment she felt like the knee was getting better. Patient does take Aleve and Tylenol daily already for aches and pains. She also takes aspirindaily so she has had anti-inflammatories on board. She bought herself a knee sleeve which has helpedwith the swelling. She has been icing and elevating. MEDICATIONS Reviewed in electronic medical record on 02/08/2017 and unchanged. ALLERGIES Reviewed in electronic medical record on 02/08/2017 and unchanged. SYSTEMS REVIEW All systems were reviewed and are negative except for those in the HPI. PAST MEDICAL/SURGICAL HISTORY 1. Arthropathy. 2. Degenerative disc disease. 3. Osteopenia. 4. Gastroesophageal reflux disease. 5. History of hysterectomy. 6. Hypercholesterolemia. 7. Impaired fasting glucose. 8. Ischemic optic neuropathy. 9. Peripheral neuropathy. 10. Partial colectomy. 11. History of stroke. PHYSICAL EXAMINATION GENERAL: Patient is a well-appearing, well-developed, well-nourished. SKIN: No significant rash or lesion is noted. HEENT: Normocephalic and atraumatic. Pupils are equal, round, and reactive to light. Sclerae are white. Conjunctivae are clear. Extraocular movements are intact. External ears appear normal. Mouth reveals moist mucous membranes. Nares are clear bilaterally. NECK: Supple. No lymphadenopathy noted. CARDIOVASCULAR: Regular rate and rhythm. S1 and S2 heard. No murmurs, gallops, or rubs auscultated. RESPIRATORY: Lungs are clear to auscultation bilaterally in the anterior and posterior glynn. No crackles or wheezes noted. ABDOMEN: Nondistended. MUSCULOSKELETAL: The patient does have still persistent swelling mostly just inferior to the patient's patella near the patellar tendon more medial than lateral on her right knee. She has no exquisite tenderness to palpation over the patella posterior knee. She has no laxity noted on anterior or posterior drawer testing. No laxity or pain is noted with varus or valgus stresses to the knee. NEUROLOGIC: Patient is alert and oriented to person, place, time, and situation. Cranial nerves II through XII are grossly intact. IMPRESSION/REPORT/PLAN Prepatellar bursitis, right. Continue conservative cares including icing multiple times a day when patient is sitting. The patient's pain is significantly better, swelling is significantly better than previous and patient states that now she is able to climb stairs and is actually even able to kneel down on her couch to open her shades though the knee pain is getting much better. I reassured patient that it is very unlikely that she has patellar fracture. Of course I let her know I would not know ifshe had a patellar fracture or not unless we got imaging but patient is after discussion today comfortable with not doing imaging of the knee. She feels her symptoms are getting better. I do think her symptoms are very likely were due to bursitis or inflammation of the prepatellar bursa and that they will continue to subside. Of course the patient is told that if she is having any feelings of giving out of the knee or cracking or popping or clicking or persistent pain or recurring swelling that she is to return for evaluation. Margo Humphries P.A.-C./kyleigh Electronically Signed By: MARGO HUMPHRIES PA-C On: 02/23/2017 06:43 PM Source: [facility] MHSDOLBEYNONRADSYS Document Id: [id number] documented in this encounter Miscellaneous Notes Miscellaneous - Fang French, L.P.N. - 02/08/2017 2:10 PM CDT Adult Wet Pour Mixer Intake/History Adult Wet Pour Mixer Intake/History Entered On: 02/08/2017 14:14 CDT Performed On: 02/08/2017 14:10 CDT by FANG FRENCH LPN Intake Chief Complaint : Right knee pain, tripped over 4 weeks ago. Temperature Core : 36.7 DegC(Converted to: 98.1 DegF) Peripheral Pulse Rate : 72 /min Respiratory Rate : 16 /min Systolic Blood Pressure : 136 mmHg Diastolic Blood Pressure : 68 mmHg NIBP Mean : 91 mmHg BP Location : Left upper extremity Blood Pressure Cuff Size : Large Height : 168 cm(Converted to: 5 ft 6 inch(es), 66 inch(es)) Actual Weight : 85.95 kg(Converted to: 189 lb 8 oz) Weight Source : Standing scale Dosing Weight Clinic : 85.95 kg Clinic BSA : 2 Body Mass Index : 30.45 kg/m2 FANG FRENCH [facility] 02/08/2017 14:10 CDT General Info Information Given By : Patient Languages : Burundian Is Patient Female and 13-50 no hysterectomy : No FANG FRENCH [facility] 02/08/2017 14:10 CDT Subjective Pain Symptoms : Yes FANG FRENCH [facility] 02/08/2017 14:10 CDT Pain Scale Pain Scale Verbal 0-10 : Open FANG FRENCH [facility] 02/08/2017 14:10 CDT Pain Pain Assessment Grid Pain 1 Pain 2 Location : Generalized Knee Laterality : Right FANG FRENCH [facility] 02/08/2017 14:10 CDT FANG FRENCH [facility] 02/08/2017 14:10 CDT Dependent Habits Exposure to Tobacco Smoke : Other: quit 03/1994 Smoking Status : Former smoker Tobacco 2A : Yes Tobacco Use/Currently Using : No Tobacco Use/Last 30 Days : No Tobacco Use/Last 12 months : No Tobacco Last Use/Month : March Tobacco Last Use/Year : 1993 FANG FRENCH [facility] 02/08/2017 14:10 CDT Caffeine Use Grid Caffeine Use : Current Type : Chocolate, Soft drinks, Tea Frequency : Occasionally Last Use : 06/02/2016 FANG FRENCH [facility] 02/08/2017 14:10 CDT Recreational Drug Use Grid Drug Use : None FANG FRENCH [facility] 02/08/2017 14:10 CDT Source: [facility] POWERCHART Document Id: [id number]!50 documented in this encounter Plan of Treatment Upcoming Encounters Date Type Specialty Care Team Description 03/25/2022 Office Visit Family Medicine Leslie Gonzalez M.D. [address] [place] [phone] (Wo rk) documented as of this encounter Visit Diagnoses Not on filedocumented in this encounter Care Teams Laborer Mine Relationship Specialty Start Date End Date Merrill Bee P.A.-C. PCP - General 11/18/[address] [place] [phone] documented as of this encounter
--- OUTSIDE RECORDS SUMMARY | 2022-03-22 15:48 | XMS_ITS | Encounter Summary ---
:1950 Author Organization [facility] Address [address] [place] [address] Care Team Providers Name Role Phone Merrill Bee P.A.-C. Primary Care Provider [phone] Reason for Visit Reason Comments Med Refill Encounter Details Date Type Department Care Team Description 10/26/2018 Refill Department of Family Medicine, Merrill Rodriguez P.A.-C. Med Refill [facility], in [address] [place] [phone] [place] [address] [place] [address] [phone] Social History Tobacco Use Types Packs/Day Years Used Date Smoking Tobacco: Former Cigarettes Quit : 1993 Smokeless Tobacco: Never Alcohol Use Standard Drinks/Week Comments Yes 16 (1 standard drink = 0.6 oz pure alcoh ol) Alcohol Habits Answer Date Recorded How often do you have a drink containing 4 or more times a w solomon 10/05/2021 alcohol? How many drinks containing alcohol [...] or relatives? How often do you attend muslim or 1 to 4 times per year 07/2021 nondenominational services? Do you belong to any clubs or Yes 10/05/2021 organizations such as muslim groups, unions, fraternal or athletic groups, or school groups? How often do you attend meetings of the More than 4 times [facility] year 10/05/2021 clubs or organizations you [...] or slept in a [facility] (including now)? Sex Assigned at Date Recorded Female 03/07/2018 9:31 AM CDT documented as of this encounter Plan of Treatment Upcoming Encounters Date Type Specialty Care Team Description 03/25/2022 Office Visit Family Medicine Leslie Gonzalez M.D. [address] [place] [phone] (Wo rk) documented as of this encounter Visit Diagnoses Not on filedocumented in this encounter Care Teams Field Observer Relationship Specialty Start Date End Date Merrill Bee P.A.-C. PCP - General 11/18/16 [address] [place] [phone] documented as of this encounter
--- OUTSIDE RECORDS SUMMARY | 2022-03-22 15:48 | XMS_ITS | Encounter Summary ---
:1950 Author Organization [facility] Address [address] [place] [address] Care Team Providers Name Role Phone Merrill Bee P.A.-C. Primary Care Provider [phone] Encounter Details Date Type Department Care Team Description 04/27/2017 Orders Only Department of Family Merrill Bee, Medicine, [facility] -C. in [facility] [address] [facility] [address] [place] [address] [place] [address] [phone] Social History Tobacco Use Types Packs/Day Years Used Date Smoking Tobacco: Former Alcohol Habits Answer Date Recorded How often do you have a drink containing 4 or more times a w [place] 10/05/2021 alcohol? How many drinks containing alcohol [...] or relatives? How often do you attend zoroastrian or 1 to 4 times per year 07/2021 catholic services? Do you belong to any clubs or Yes 10/05/2021 organizations such as zoroastrian groups, unions, fraternal or athletic groups, or [...] or slept in a half-way (including now)? Sex Assigned at Date Recorded Female 03/07/2018 9:31 AM CDT documented as of this encounter Plan of Treatment Upcoming Encounters Date Type Specialty Care Team Description 03/25/2022 Office Visit Family Medicine Leslie Gonzalez M.D. [address] [place] [phone] (Wo rk) documented as of this encounter Visit Diagnoses Not on filedocumented in this encounter Care Teams Iv Technician Relationship Specialty Start Date End Date Merrill Bee P.A.-C. PCP - General 11/18/16 [address] [place] [phone] documented as of this encounter
--- OUTSIDE RECORDS SUMMARY | 2022-03-22 15:48 | XMS_ITS | Encounter Summary ---
:1950 Author Organization [facility] Address [address] [place] [address] Care Team Providers Name Role Phone Merrill Bee P.A.-C. Primary Care Provider [phone] Reason for Referral Outpatient (Routine) - Closed Specialty Diagnoses / Procedures Referred By Contact Refer red To Contact Family Medicine Merrill Bee P. A.-C. [address] [phone] Referral ID Status Reason Start Date Expiration Date Visits Requ ested Visits Authorized [id number] Closed 03/10/2018 03/10/2019 1 1 Reason for Visit Reason Comments Follow-up labs and toe nails Outpatient (Routine) - Closed Specialty Diagnoses / Procedures Referred By Contact Refer red To Contact Family Merrill Buck P. A.-C. [address] [phone] Referral ID Status Reason Start Date Expiration Date Visits Requ ested Visits Authorized [id number] Closed 11/18/2017 11/18/2018 1 1 Encounter Details Date Type Department Care Team Description 03/10/2018 Office Visit Department of Merrill Self, Anibal ychomycosis (Primary Dx); Medicine, Preet Marte Neuropathy Peripheral; Clinic, in [address]; [place], [place] Hypertension Essential Prima ry [address] [phone] ERIKA MATIAS [phone] (Work) [phone] Social History Tobacco Use Types Packs/Day Years Used Date Smoking Tobacco: Former Cigarettes Quit : 1993 Smokeless Tobacco: Never Alcohol Use Standard Drinks/Week Comments Yes 16 (1 standard drink = 0.6 oz pure alcoh ol) Alcohol Habits Answer Date Recorded How often do you have a drink containing 4 or more times a w [place] 10/05/2021 alcohol? How many drinks containing alcohol [...] or slept in a [facility] (including now)? Sex Assigned at Date Recorded Female 03/07/2018 9:31 AM CDT documented as of this encounter Last Filed Vital Signs Vital Sign Reading Time Taken Comments Blood Pressure 140/74 03/10/2018 1:05 PM CDT Pulse 100 03/10/2018 12:56 PM CDT Temperature 36.8 ??C (98.2 ??F) 03/10/2018 12:56 PM CDT Respiratory Rate - - Oxygen Saturation - - Inhaled Oxygen Concentration - - Weight 85 kg (187 lb 6.3 oz) 03/10/2018 12:56 PM CDT Height - - Body Mass Index 29.76 11/18/2017 9:39 AM CDT documented in this encounter Progress Notes Merrill Bee P.A.-C. - 03/10/2018 1:00 PM CDT CHIEF COMPLAINT / REASON FOR VISIT Steph Simmons is a 67 y.o. female who presents for evaluation of Follow-up ( labs and toe nails). HISTORY OF PRESENT ILLNESS Steph presents today for follow-up of her onychomycosis. She also has peripheral neuropathy vertigo and her blood pressure continues to be elevated. For the most part she is feeling well she feels likeher onychomycosis is getting better. Her peripheral neuropathy is chronic she has been intolerant ofLyrica in the past so she is not sure what to do about this. She has started yoga which seems to be h elping some. She also has history of vertigo that responded nicely to meclizine she is wanting if she could get a refill of that. Also over the last couple visits her blood pressures have been elevatedand they continue that trend today. Regarding her onychomycosis she has responded nicely to the Lamisil OBJECTIVE Vitals: 03/10/18 1256 03/10/18 1305 BP: 144/80 140/74 BP Location: Left arm Patient Position: Sitting Cuff Size: Large Pulse: 100 Temp: 36.8 ??C Weight: 85 kg Body mass index is 29.76 kg/m??. PHYSICAL EXAM Heart: Regular rate and rhythm no murmurs Lungs: Clear to auscultation Toes. Her toenails are looking good. The new area growing out does not appear to be affected by the fungus. I did review her fungal culture with her today IMPRESSION / REPORT / PLAN #1 Onychomycosis I gave her another 3 months of Lamisil. Her liver functions are doing well if it does not resolve bythen she will let us know #2 Neuropathy Peripheral We talked about Lyrica she does not want to try it again. If she changes her mind she will let us know #3 Vertigo I renewed her meclizine #4 Hypertension Essential Primary Blood pressure is elevated today it has been elevated on most of the checks throughout the last year. I am going to start her on lisinopril hydrochlorothiazide I will see her back in 1 month with electrolyte panel if she has any questions or problems in the meantime she will let us know Total time spent with her today was 25 min of which 20 was [id number] coordination of care and counseling Merrill Bee P.A.-C. documented in this encounter Plan of Treatment Upcoming Encounters Date Type Specialty Care Team Description 03/25/2022 Office Visit Family Medicine Leslie Gonzalez M.D. [address] [place] [phone] (Wo rk) Scheduled Referrals Name Type Priority Associated Diagnoses [facility] Referral Routine Expec marc: office visit 04/10/2018 (clinic) (Approximate), Expires: 03/10/2021 documented as of this encounter Results (ABNORMAL) Basic Metabolic Panel (04/10/2018 7:51 AM LINER WORKER) athologist Signature Potassium, S 5.0 3.6 - 5.2 04/10/2018 [facility] mmol/L 11:10 AM [facility] Sodium, S 140 135 - 145 04/10/2018 [facility] mmol/L 11:10 AM [facility] Chloride, S 99 98 - 107 04/10/2018 [facility] mmol/L 11:10 AM [facility] Bicarbonate, S 30 (H) 22 - 29 04/10/2018 [facility] mmol/L 11:10 AM [facility] Anion Gap 11 7 - 15 04/10/2018 [facility] 11:10 AM [facility] BUN (Blood Urea 17 6 - 21 04/10/2018 [facility] Nitrogen), S mg/dL 11:10 AM [facility] Creatinine 0.83 0.59 - 04/10/2018 [facility] 1.04 mg/dL 11:10 AM [facility] eGFR-Non 72 >=60 04/10/2018 [facility] Black/ mL/min/BSA 11:10 AM [facility] [place] [facility] Comment: ----ADDITIONAL INFORMATION---- Estimated GFR calculated using the 2009 CKD_EPI creatinine equation. eGFR-Black/ 83 >=60 mL/min/BSA 2017 11:10 AM [facility] Comment: ----ADDITIONAL INFORMATION---- Estimated GFR calculated using the 2009 CKD_EPI creatinine equation. Calcium, Total, S 9.8 8.8 - 10.2 mg/dL 04/10/2018 11:1 0 AM [facility] Glucose, S 135 70 - 140 mg/dL 04/10/2018 11:10 AM [facility] Specimen Anatomical Collection Method Collection Time Receive d Time (Source) Location / / Volume Laterality Blood (Blood, 04/10/2018 7:51 AM 04/10/20 18 Venous) LINER WORKER 10:45 AM LINER WORKER Merrill Bee P.A.-C. LAB BLOOD ADD-ON Performing Organization Address City/State/ZIP Code Phon e Number [facility] [employer] [address] [place] [phone] LAB documented in this encounter Visit Diagnoses Diagnosis Onychomycosis - Primary Neuropathy Peripheral Vertigo Hypertension Essential Primary documented in this encounter Care Teams Trade Embalmer Relationship Specialty Start Date End Date Merrill Bee P.A.-C. PCP - General 11/18/[address] [place] [phone] documented as of this encounter
--- OUTSIDE RECORDS SUMMARY | 2022-03-22 15:48 | XMS_ITS | Encounter Summary ---
:1950 Author Organization [facility] Address [address] [place] [address] Care Team Providers Name Role Phone Merrill Bee P.A.-C. Primary Care Provider [phone] Reason for Visit Reason Comments Eye Pain swollen right eye x 3 days w ith vision not effected per patient Encounter Details Date Type Department Care Team Description 05/03/2017 Office Visit Department of [facility] Donnell Her pes Zoster (Primary Medicine, Gabbie Colvin, Suzanne) Clinic, in [place] [address] [phone] Social History Tobacco Use Types Packs/Day Years Used Date Smoking Tobacco: Former Cigarettes Quit : 1993 Smokeless Tobacco: Never Alcohol Use Standard Drinks/Week Comments Yes 16 (1 standard drink = 0.6 oz pure alcoh ol) Alcohol Habits Answer Date Recorded How often do you have a drink containing 4 or more times a w [place] 10/05/2021 alcohol? How many drinks containing alcohol [...] or relatives? How often do you attend mormonism or 1 to 4 times per year 07/2021 shinto services? Do you belong to any clubs or Yes 10/05/2021 organizations such as mormonism groups, unions, fraternal or athletic groups, or [...] a [place] [facility] (including now)? Sex Assigned at Date Recorded Female 03/07/2018 9:31 AM CDT documented as of this encounter Last Filed Vital Signs Vital Sign Reading Time Taken Comments Blood Pressure 138/80 05/03/2017 11:43 AM NURSING FACULTY Pulse 72 05/03/2017 11:43 AM NURSING FACULTY Temperature 36.7 ??C (98.1 ??F) 05/03/2017 11:43 AM NURSING FACULTY Respiratory Rate 16 05/03/2017 11:43 AM NURSING FACULTY Oxygen Saturation - - Inhaled Oxygen Concentration - - Weight 89.5 kg (197 lb 6.8 oz) 05/03/2017 11:43 AM NURSING FACULTY Height 168 cm (5' 6.14) 05/03/2017 11:43 AM NURSING FACULTY Body Mass Index 31.73 05/03/2017 11:43 AM NURSING FACULTY documented in this encounter Progress Notes Gabbie Valverde M.D. - 05/03/2017 11:00 AM CST SUBJECTIVE CHIEF COMPLAINT / REASON FOR VISIT Steph Simmons is a 67 y.o. female who presents for evaluation of Eye Pain (swollen right eye x 3days with vision not effected per patient). HISTORY OF PRESENT ILLNESS Steph has noticed a sore sensation below her right eye that has been present for the past 3 days. Shehas now noticed some small bumps toward the nose. She has not had any pain of the high. There has been no change in her vision and no dry or gritty sensation. She has not noticed any bumps in other areas of the face or scalp. She has had a mild tingly sensation in the right yarsanism area. OBJECTIVE BP 138/80 (BP Location: Left arm, Patient Position: Sitting, Cuff Size: Regular) Pulse 72 Temp 36.7 ??C (Temporal) Resp 16 Ht 168 cm Wt 89.5 kg BMI 31.73 kg/m?? PHYSICAL EXAM GENERAL: Patient is alert and oriented, well groomed and appropriately dressed. HEENT: TMS are both normal. Nasal mucosa is normal without congestion or discharge. Oropharynx is without erythema or exudate. There is no obvious redness or drainage of the right eye. NECK: Without adenopathy, thyromegaly or carotid bruits. HEART: Regular rate and rhythm without murmur. LUNGS: Clear without wheeze crackle or rhonchus. SKIN: Just below the medial canthus of the right eye is a small, about 1 cm patch, of slight erythema with about 3 tiny vesicles. No other vesicles are noted on the skin. ASSESSMENT / PLAN #1 Herpes Zoster A because of the proximity to the high she needs to see her eye doctor today. I will also start her on antiviral therapy. See med list. I will see her back with new or worsening symptoms. ING FACULTY documented in this encounter Plan of Treatment Upcoming Encounters Date Type Specialty Care Team Description 03/25/2022 Office Visit Family Medicine Leslie Gonzalez M.D. [address] [place] [phone] (Wo rk) documented as of this encounter Visit Diagnoses Diagnosis Herpes Zoster - Primary documented in this encounter Care Teams Seam Taper Machine Relationship Specialty Start Date End Date Merrill Bee P.A.-C. PCP - General 11/18/16 [address] [place] [phone] documented as of this encounter
--- OUTSIDE RECORDS SUMMARY | 2022-03-22 15:48 | XMS_ITS | Encounter Summary ---
:1950 Author Organization [facility] Address [address] [place] [address] Care Team Providers Name Role Phone Merrill Bee P.A.-C. Primary Care Provider [phone] Encounter Details Date Type Department Care Team Description 05/03/2017 Abstract Department of Pediatrics in Provider, [place], [place] [address] [place] [address] Social History Tobacco Use Types Packs/Day Years [...] or relatives? How often do you attend samaritan or 1 to 4 times per year 07/2021 taoism services? Do you belong to any clubs or Yes 10/05/2021 organizations such as samaritan groups, unions, fraternal or athletic groups, or [...] or slept in a [facility] (including now)? Sex Assigned at Date Recorded Female 03/07/2018 9:31 AM CDT documented as of this encounter Plan of Treatment Upcoming Encounters Date Type Specialty Care Team Description 03/25/2022 Office Visit Family Medicine Leslie Gonzalez M.D. [address] [place] [phone] (Wo rk) documented as of this encounter Visit Diagnoses Not on filedocumented in this encounter Care Teams Manager Adobe Relationship Specialty Start Date End Date Merrill Bee P.A.-C. PCP - General 11/18/[address] [place] [phone] documented as of this encounter
--- OUTSIDE RECORDS SUMMARY | 2022-03-22 15:48 | XMS_ITS | Encounter Summary ---
:1950 Author Organization [facility] Address [address] [place] [address] Care Team Providers Name Role Phone Merrill Bee P.A.-C. Primary Care Provider [phone] Encounter Details Date Type Department Care Team Description 05/03/2017 Nurse Triage Department of Ana Davison R.N . Medicine, [facility], in [place], [place] [address] [place] [phone] Social History Tobacco Use Types Packs/Day Years [...] or relatives? How often do you attend methodist or 1 to 4 times per year 07/2021 latter-day services? Do you belong to any clubs or Yes 10/05/2021 organizations such as methodist groups, unions, fraternal or athletic groups, or [...] Visit Family Medicine Leslie Gonzalez M.D. [address] [place] [phone] (Wo rk) documented as of this encounter Visit Diagnoses Not on filedocumented in this encounter Care Teams Telephone Maintainer Relationship Specialty Start Date End Date Merrill Bee P.A.-C. PCP - General 11/18/16 [address] [place] [phone] documented as of this encounter
--- OUTSIDE RECORDS SUMMARY | 2022-03-22 15:48 | XMS_ITS | Encounter Summary ---
:1950 Author Organization [facility] Address [address] [place] [address] Care Team Providers Name Role Phone Merrill Bee P.A.-C. Primary Care Provider [phone] Encounter Details Date Type Department Care Team Description 04/27/2017 Orders Only Department of [place], [place] dimitrios Romero [facility], [facility], [address] [place] [facility] [place] [address] [place] [address] [place] [phone] Social History Tobacco Use Types Packs/Day Years Used Date Smoking Tobacco: Former Alcohol Habits Answer Date Recorded How often do you have a drink containing 4 or more times a w [place] 10/05/2021 alcohol? How many drinks containing alcohol [...] 1 to 4 times per year 07/2021 hinduism services? Do you belong to any clubs [...] slept in a senior care (including now)? Sex Assigned at Date Recorded Female 03/07/2018 9:31 AM CDT documented as of this encounter Plan of Treatment Upcoming Encounters Date Type Specialty Care Team Description 03/25/2022 Office Visit Family Medicine Leslie Gonzalez M.D. [address] [place] [phone] (Wo rk) documented as of this encounter Visit Diagnoses Not on filedocumented in this encounter Care Teams Siphon Operator Relationship Specialty Start Date End Date Merrill Bee P.A.-C. PCP - General 11/18/[address] [place] [phone] documented as of this encounter
--- OUTSIDE RECORDS SUMMARY | 2022-03-22 15:48 | XMS_ITS | Encounter Summary ---
:1950 Author Organization [facility] Address [address] [place] [address] Care Team Providers Name Role Phone Merrill Bee P.A.-C. Primary Care Provider [phone] Encounter Details Date Type Department Care Team Description 11/09/2017 Hospital Encounter Department of [facility] Cardiac V[facility] Laboratory Medicine Wal[facility] Momin Disease Screening in [address] [address] [place], [place] [phone] (Work) [phone] Social History Tobacco Use Types Packs/Day Years Used Date Smoking Tobacco: Former Cigarettes Quit : 1993 Smokeless Tobacco: Never Alcohol Use Standard Drinks/Week Comments Yes 16 (1 standard drink = 0.6 oz pure alcoh ol) Alcohol Habits Answer Date Recorded How often do you have a drink containing 4 or more times a w [place] 10/05/2021 alcohol? How many drinks containing alcohol [...] or relatives? How often do you attend anglican or 1 to 4 times per year 07/2021 episcopalian services? Do you belong to any clubs or Yes 10/05/2021 organizations such as anglican groups, unions, fraternal or athletic groups, or [...] (LIPITOR) 40 Take 1 tablet by 0 /10/201611/18/2017 mg tablet mouth at bedtime. Bifidobacterium infantis Take 1 capsule by 0 07/2 02/201106/30/2020 (ALIGN) 4 mg capsule mouth daily. BILBERRY ORAL bilberry See 0 04/09/2013 0 Instructions, Takes 1 cap daily CETIRIZINE HCL Take by mouth daily. 0 11/19/2015 07/14/2020 (CETIRIZINE ORAL) DULoxetine (CYMBALTA) 60 Take 1 capsule by 0 12/201611/18/[address] capsule mouth daily. MULTIVITAMIN ORAL daily. 0 01/27/2010 021 naproxen [...] as needed. documented as of this encounter Plan of Treatment Upcoming Encounters Date Type Specialty Care Team Description 03/25/2022 Office Visit Family Medicine Leslie Gonzalez M.D. [address] [place] [phone] (Wo rk) documented as of this encounter Procedures Procedure Name Priority Date/Time Associated Comments Diagnosis LIPID PANEL, S Routine 11/09/2017 7:36 AM Cardiac Vascular Res ults for this CDT Disease Screening procedure are in the results section. HEMOGLOBIN A1C, B Routine 11/09/2017 7:36 AM Cardiac Vascular Results for this CDT Disease Screening procedure are in the results section. COMPREHENSIVE Routine 11/09/2017 7:36 AM Cardiac Vascular Resu lts for this METABOLIC PANEL, S/P CDT Disease Screening pr ocedure are in the results section. documented in this encounter Results (ABNORMAL) Lipid Panel (11/09/2017 7:36 AM CDT) P athologist Signature Cholesterol, 214 (H) mg/dL 11/09/[address] [facility] Total 11:12 AM CDT [facility] [place] [facility] Comment: ----REFERENCE VALUE---- Desirable: < 200 Borderline high: 200 - 239 High: > or = 240 Triglycerides 100 mg/dL 11/09/2017 11:12 AM CDT [facility] [place] Comment: ----REFERENCE VALUE---- Normal: <150 Borderline high: 150-199 High: 200-499 Very high: > or =500 Cholesterol, HDL, S 98 >=50 mg/dL 11/09/2017 11:12 AM CDT [facility] Calculated LDL 96 mg/dL 11/09/2017 11:12 AM CDT [facility] [place] [facility] Comment: ----REFERENCE VALUE---- Desirable: <100 Above Desirable: 100-129 Borderline high: 130-159 High: 160-189 Very high: > or =190 Cholesterol, Non-HDL, 116 mg/dL 11/09/2017 11:12 A M CDT [facility] Comment: ----REFERENCE VALUE---- Desirable: <130 Above Desirable: 130-159 Borderline high: 160-189 High: 190-219 Very high: > or =220 Specimen Anatomical Collection Method Collection Time Receive d Time (Source) Location / / Volume Laterality Blood 11/09/2017 7:36 AM 8 CDT 10:54 AM CDT Merrill Bee P.A.-C. LAB BLOOD ADD-ON Performing Organization Address City/State/ZIP Code Phon e Number [facility] [address] [place] [phone] LAB (ABNORMAL) CMP (Comprehensive Metabolic Panel) (11/09/2017 7:36 AM CDT) P athologist Signature Potassium, S 4.9 3.6 - 5.2 11/09/[address] [facility] mmol/L 11:12 AM CDT [facility] Sodium, S 141 135 - 145 11/09/[address] [facility] mmol/L 11:12 AM [facility] Chloride, S 101 98 - 107 11/09/[address] [facility] mmol/L 11:12 AM CDT [facility] [place] Bicarbonate, S 30 (H) 22 - 29 11/09/[address] [facility] mmol/L 11:12 AM [facility] [place] [facility] Anion Gap 10 7 - 15 11/09/[address] [facility] 11:12 AM [facility] [place] [facility] BUN (Blood Urea 16 6 - 21 11/09/[address] [facility] Nitrogen), S mg/dL 11:12 AM [facility] [place] [facility] Creatinine 0.74 0.59 - 11/09/[address] [facility] 1.04 mg/dL 11:12 AM [facility] [place] [facility] eGFR-Non 83 >=60 11/09/[address] [facility] Black/ mL/min/BSA 11:12 AM [facility] [place] [facility] Comment: ----ADDITIONAL INFORMATION---- Estimated GFR calculated using the 2009 CKD_EPI creatinine equation. eGFR-Black/ >90 >=60 mL/min/BSA 2017 11:12 [facility] [place] Comment: ----ADDITIONAL INFORMATION---- Estimated GFR calculated using the 2009 CKD_EPI creatinine equation. Calcium, Total, S 9.5 8.8 - 10.2 11/09/2017 11:12 AM [facility] mg/dL [facility] [place] [facility] Glucose, S 114 70 - 140 mg/dL 11/09/2017 11:12 AM [facility] [place] [facility] Protein, Total, S 7.0 6.3 - 7.9 g/dL 11/09/2017 11:12 AM [facility] [place] [facility] Albumin, S 4.9 3.5 - 5.0 g/dL 11/09/2017 11:12 AM [facility] [place] [facility] Aspartate Aminotransferase 33 8 - 43 U/L 11/09/2017 1 1:[address] [facility] [place] [facility] Alkaline Phosphatase, S 83 55 - 142 U/L 11/09/2017 11 :12 AM [facility] [place] [facility] Alanine Aminotransferase 31 7 - 45 U/L 11/09/2017 11: [address] [facility] ([facility]), S CDT [facility] [place] [facility] Bilirubin, Total, S 0.6 <=1.2 mg/dL 11/09/2017 11:12 A [facility] [place] [facility] Specimen Anatomical Collection Method Collection Time Receive d Time (Source) Location / / Volume Laterality Blood 11/09/2017 7:36 AM 8 CDT 10:54 AM CDT Merrill Bee P.A.-C. LAB BLOOD ADD-ON Performing Organization Address City/State/ZIP Code Phon e Number [facility] [place] [address], [place] [address] LAB Hemoglobin A1c (11/09/2017 7:36 AM CDT) P athologist Signature Hemoglobin A1c, 5.3 4.2 - 5.6 11/09/[address] [facility] B % 11:24 AM CDT [facility] [place] [facility] Specimen Anatomical Collection Method Collection Time Receive d Time (Source) Location / / Volume Laterality Blood 11/09/2017 7:36 AM 8 CDT 10:55 AM CDT Merrill Bee P.A.-C. LAB BLOOD ADD-ON Performing Organization Address City/State/ZIP Code Phon e Number [facility] [place] [address] [place] [phone] LAB documented in this encounter Visit Diagnoses Diagnosis Cardiac Vascular Disease Screening documented in this encounter Care Teams Electromedical Equipment Technician Relationship Specialty Start Date End Date Merrill Bee P.A.-C. PCP - General 11/18/[address] [place] [phone] documented as of this encounter
--- OUTSIDE RECORDS SUMMARY | 2022-03-22 15:48 | XMS_ITS | Encounter Summary ---
:1950 Author Organization [facility] Address [address] [place] [address] Care Team Providers Name Role Phone Merrill Bee P.A.-C. Primary Care Provider [phone] Reason for Visit Reason Comments Follow-up lab results Outpatient (Routine) - Closed Specialty Diagnoses / Procedures Referred By Contact Refer red To Contact Family Medicine Merrill Bee P. A.-C. [facility] [address] [place] [address] Referral ID Status Reason Start Date Expiration Date Visits Requ ested Visits Authorized [id number] Closed 03/10/2018 03/10/2019 1 1 Encounter Details Date Type Department Care Team Description 04/12/2018 Office Visit Department of Merrill Self Hy pertension Essential Primary (Primary Dx); Medicine, Preet Marte Onychomycosis; Clinic, in [address] [facility] [address] [place], [place] [phone] (Work) [phone] Social History Tobacco Use Types Packs/Day Years Used Date Smoking Tobacco: Former Cigarettes Quit : 1993 Smokeless Tobacco: Never Alcohol Use Standard Drinks/Week Comments Yes 16 (1 standard drink = 0.6 oz pure alcoh ol) Alcohol Habits Answer Date Recorded How often do you have a drink containing 4 or more times a w [place] 10/05/2021 alcohol? How many drinks containing alcohol [...] 1 to 4 times per year 07/2021 jehovah's witness services? Do you belong to any clubs or Yes 10/05/2021 organizations such as jewish groups, unions, fraternal or athletic groups, or school groups? How often do you attend meetings of the More than 4 times r 10/05/2021 clubs or organizations you belong [...] or slept in a custodial (including now)? Sex Assigned at Date Recorded Female 03/07/2018 9:31 AM CDT documented as of this encounter Last Filed Vital Signs Vital Sign Reading Time Taken Comments Blood Pressure 120/64 04/12/2018 8:14 AM ACCOUNTING ADMINISTRATOR Pulse 80 04/12/2018 8:14 AM ACCOUNTING ADMINISTRATOR Temperature 36 ??C (96.8 ??F) 04/12/2018 8:14 AM ACCOUNTING ADMINISTRATOR Respiratory Rate - - Oxygen Saturation - - Inhaled Oxygen Concentration - - Weight 83 kg (182 lb 15.7 oz) 04/12/2018 8:14 AM ACCOUNTING ADMINISTRATOR Height - - Body Mass Index 29.06 11/18/2017 9:39 AM CDT documented in this encounter Progress Notes Merrill Bee P.A.-C. - 04/12/2018 8:30 AM CST CHIEF COMPLAINT / REASON FOR VISIT Steph Simmons is a 67 y.o. female who presents for evaluation of Follow-up (lab results). HISTORY OF PRESENT ILLNESS Steph presents today for follow-up of a couple different issues. She has hypertension she is doing well on lisinopril hydrochlorothiazide. She has onychomycosis she is still taking a Lamisil and this is almost gone. She has had diarrhea over the last 10 days she. She just got back from [facility] and she is wondering if there is anything that happened there that may have contributed to her diarrhea. She has been pushing fluids she admits she has been a little more dizzy than normal she thinks shemay be a little dehydrated she is really working hard drinking fluids. We checked electrolytes a couple days ago and her potassium was good. Patient Active Problem List Diagnosis ??? Stroke (HCC) ??? Reflux Esophageal ??? Hypercholesterolemia ??? Neuropathy Peripheral ??? Hypertension Essential Primary ??? Onychomycosis OBJECTIVE Vitals: 04/12/18 0814 BP: 120/64 BP Location: Left arm Patient Position: Sitting Cuff Size: Large Pulse: 80 Temp: 36 ??C Weight: 83 kg Body mass index is 29.06 kg/m??. PHYSICAL EXAM GENERAL: Patient appears in no acute distress. HEART: Regular rate and rhythm. No murmurs. LUNGS: Clear to auscultation. ABDOMEN: Soft and nontender to palpation. Bowel sounds were normal Ft exam: Her toenails are looking much better the new growth of nail is normal in appearance approximately half way from the nail matrix IMPRESSION / REPORT / PLAN #1 Hypertension Essential Primary Her blood pressure is doing excellent today she has had a checked 1 time since I last saw her. For now we will continue her on the same medication I will plan to see her back as scheduled in 6 months #2 Onychomycosis She will continue on Lamisil she has about a week left and then discontinue it. If it does not completely resolve if she notices any recurrence of her symptoms she will let us know otherwise she will finish out the medication #3 Diarrhea This has been a new issue it has only been there for about the last 10 days. She will continue to push fluids. I do think some of her dizziness may be from dehydration we talked about food sources of potassium in the importance of continuing to keep up on her hydration. She is in agreement with this plan if she has questions or problems or for symptoms worsen or do not completely resolve within the next 7 days she will let us know otherwise follow up as needed Merrill Bee P.A.-C. UNTING ADMINISTRATOR documented in this encounter Plan of Treatment Upcoming Encounters Date Type Specialty Care Team Description 03/25/2022 Office Visit Family Medicine Leslie Gonzalez M.D. [address] [place] [phone] (Wo rk) documented as of this encounter Visit Diagnoses Diagnosis Hypertension Essential Primary - Primary Onychomycosis Diarrhea documented in this encounter Care Teams Visual Coordinator Relationship Specialty Start Date End Date Merrill Bee P.A.-C. PCP - General 11/18/16 [address] [place] [phone] documented as of this encounter
--- OUTSIDE RECORDS SUMMARY | 2022-03-22 15:48 | XMS_ITS | Encounter Summary ---
:1950 Author Organization [facility] Address [address] [place] [address] Care Team Providers Name Role Phone Merrill Bee P.A.-C. Primary Care Provider [phone] Encounter Details Date Type Department Care Team Description 02/22/2018 Hospital Encounter Department of Merrill Bee Ony chomycosis Laboratory Medicine in [place], [place] [address] [facility] [address] [place] [phone] Social History Tobacco Use Types Packs/Day Years Used Date Smoking Tobacco: Former Cigarettes Quit : 1993 Smokeless Tobacco: Never Alcohol Use Standard Drinks/Week Comments Yes 16 (1 standard drink = 0.6 oz pure alcoh ol) Alcohol Habits Answer Date Recorded How often do you have a drink containing 4 or more times a w [place] 10/05/2021 alcohol? How many drinks containing alcohol [...] 1 to 4 times per year 07/2021 ca[employer]ism services? Do you belong to any clubs [...] or slept in a correction (including now)? Sex Assigned at Date Recorded [...] Take 1 capsule (60 90 capsule 3 10/26/[address] capsule mg total) by mouth daily. meclizine (ANTIVERT) 25 TAKE 1 TABLET BY 90 tablet 3 201703/10/2018 mg tablet MOUTH THREE TIMES DAILY NEEDED FOR DIZZINESS MULTIVITAMIN ORAL daily. 0 01/27/2010 021 terbinafine (LamISIL) 250 1 02/11/2018 03/10/2018 mg tablet valACYclovir (VALTREX) 1 12/23/2017 1000 mg tablet documented as of this encounter Plan of Treatment Upcoming Encounters Date Type Specialty Care Team Description 03/25/2022 Office Visit Family Medicine Leslie Gonzalez M.D. [address] [place] [address] [phone] (Wo rk) documented as of this encounter Procedures Procedure Name Priority Date/Time Associated Diagnosis Comme nts ALANINE AMINOTRANSFERASE Routine 02/22/2018 7:47 Onychomycosis Results for this (ALT), S/P AM CDT procedure are i n the results section. ASPARTATE Routine 02/22/2018 7:47 Onychomycosis Results for this AMINOTRANSFERASE (AST), AM CDT proc edure are in S/P the results section. documented in this encounter Results ALT (Alanine Aminotransferase) (02/22/2018 7:47 AM CDT) [facility] gist Method Time Signature Alanine 30 7 - 45 02/22/2018 [facility] Aminotransferase U/L 11:16 AM CDT [facility] (ALT), S SYSTEM- [facility] Specimen Anatomical Collection Method Collection Time Receive d Time (Source) Location / / Volume Laterality Blood (Blood, 02/22/2018 7:47 AM 02/23/20 18 Venous) CDT 10:57 AM CDT Merrill Bee P.A.-C. LAB BLOOD ADD-ON Performing Organization Address City/State/ZIP Code Phon e Number [facility]- [facility] [address] [place] [address] LAB AST (Aspartate Aminotransferase) (02/22/2018 7:47 AM CDT) [facility] Method Time Signature Aspartate 25 8 - 43 02/22/2018 [facility] Aminotransferase U/L 11:16 AM CDT [facility] (AST), [facility] Specimen Anatomical Collection Method Collection Time Receive d Time (Source) Location / / Volume Laterality Blood (Blood, 02/22/2018 7:47 AM 02/23/20 18 Venous) CDT 10:57 AM CDT Merrill Bee P.A.-C. LAB BLOOD ADD-ON Performing Organization Address City/State/ZIP Code Phon e Number [facility] [address] [place] [address] LAB documented in this encounter Visit Diagnoses Diagnosis Onychomycosis documented in this encounter Care Teams Tube Winder Relationship Specialty Start Date End Date Merrill Bee P.A.-C. PCP - General 11/18/[address] [place] [phone] documented as of this encounter
--- OUTSIDE RECORDS SUMMARY | 2022-03-22 15:48 | XMS_ITS | Encounter Summary ---
:1950 Author Organization [facility] Address [address] [place] [address] Care Team Providers Name Role Phone Merrill Bee P.A.-C. Primary Care Provider [phone] Encounter Details Date Type Department Care Team Description 04/10/2018 Hospital Encounter Department of Brock Bee Laboratory Medicine [facility] in [address] [address] [place], [place] [phone] (Work) [phone] Social History Tobacco Use Types Packs/Day Years [...] or slept in a jail (including now)? Sex Assigned at Date Recorded [...] 0 10/22/2015 E/LUTEIN/MIN/OMEGA-3 mouth daily. (OCUVITE ORAL) terbinafine (LamISIL) 250 Take 1 tablet (250 90 tablet 0 06/08/2018 mg tablet mg total) by mouth daily. acetaminophen (TYLENOL Take by mouth 3 0 [...] Office Visit Family Medicine Leslie Gonzalez M.D. [address] [place] [address] [phone] (Wo rk) documented as of this encounter Procedures Procedure Name Priority Date/Time Associated Diagnosis Comme nts BASIC METABOLIC Routine 04/10/2018 7:51 AM Hypertension Result s for this PANEL, S/P PIPING DESIGNER [facility] procedure are in the results section. documented in this encounter Results (ABNORMAL) Basic Metabolic Panel (04/10/2018 7:51 AM PIPING DESIGNER) P athologist Signature Potassium, S 5.0 3.6 - 5.2 04/10/2018 [facility] mmol/L 11:10 AM [facility] [place] [facility] Sodium, S 140 135 - 145 04/10/2018 [facility] mmol/L 11:10 AM [facility] [place] [facility] Chloride, S 99 98 - 107 04/10/2018 [facility] mmol/L 11:10 AM [facility] Bicarbonate, S 30 (H) 22 - 29 04/10/2018 [facility] mmol/L 11:10 AM [facility] Anion Gap 11 7 - 15 04/10/2018 [facility] 11:10 AM [facility] BUN (Blood Urea 17 6 - 21 04/10/2018 [facility] Nitrogen), S mg/dL 11:10 AM [facility] [place] [facility] Creatinine 0.83 0.59 - 04/10/2018 [facility] 1.04 mg/dL 11:10 AM [facility] eGFR-Non 72 >=60 04/10/2018 [facility] Black/ mL/min/BSA 11:10 AM [facility] [employer] [facility] [place] [facility] Comment: ----ADDITIONAL INFORMATION---- Estimated GFR calculated using the 2009 CKD_EPI creatinine equation. eGFR-Black/ 83 >=60 mL/min/BSA 2017 11:10 AM [facility] [place] [facility] Comment: ----ADDITIONAL INFORMATION---- Estimated GFR calculated using the 2009 CKD_EPI creatinine equation. Calcium, Total, S 9.8 8.8 - 10.2 mg/dL 04/10/2018 11:1 0 AM [facility] Glucose, S 135 70 - 140 mg/dL 04/10/2018 11:10 AM [facility] [place] [facility] Specimen Anatomical Collection Method Collection Time Receive d Time (Source) Location / / Volume Laterality Blood (Blood, 04/10/2018 7:51 AM 04/10/20 18 Venous) PIPING DESIGNER 10:45 AM PIPING DESIGNER Merrill Bee P.A.-C. LAB BLOOD ADD-ON Performing Organization Address City/State/ZIP Code Phon e Number [facility] [address] [place] [address] LAB documented in this encounter Visit Diagnoses Diagnosis Hypertension [facility] documented in this encounter Care Teams Tradeshow Worker Relationship Specialty Start Date End Date Merrill Bee P.A.-C. PCP - General 11/18/16 [address] [place] [phone] documented as of this encounter
--- OUTSIDE RECORDS SUMMARY | 2022-03-22 15:48 | XMS_ITS | Encounter Summary ---
:1950 Author Organization [facility] Address [address] [place] [address] Care Team Providers Name Role Phone Jostin Hernandez P.A.-C. Primary Care Provider [phone] Encounter Details Date Type Department Care Team Description 02/10/2017 Hospital Encounter HX [facility] PMTR Ken Dalton M.D. [address] [place] [address], [address] [place] [address] (Wo rk) Social History Tobacco Use Types Packs/Day Years Used Date Smoking Tobacco: Former Alcohol Habits Answer Date Recorded How often do you have a drink containing 4 or more times a w [place] 10/05/2021 alcohol? How many drinks containing alcohol [...] 1 to 4 times per year 07/2021 buddhist services? Do you belong to any clubs [...] Sign Reading Time Taken Comments Blood Pressure 138/82 02/10/2017 9:20 AM CDT Pulse - - Temperature - - Respiratory Rate - - Oxygen Saturation - - Inhaled Oxygen Concentration - - Weight 85.6 kg (188 lb 13.2 oz) 02/10/2017 9:20 AM CDT Height 168 cm (5' 6.14) 02/10/2017 9:20 AM CDT Body Mass Index 30.35 02/10/2017 9:20 AM CDT documented in this encounter Medications at [...] (CYMBALTA) 60 Take 1 capsule by 0 09/0 12/201611/18/[address] capsule mouth daily. MULTIVITAMIN [...] documented as of this encounter Progress Notes Charito Dalton M.D. - 02/10/2017 8:46 AM CDT [id number] CHIEF COMPLAINT/REASON FOR VISIT Follow up low back pain and bilateral extremity pain and new issue of right knee pain. HISTORY OF PRESENT ILLNESS Ms. Simmons returns today. She reports the Cymbalta has been very helpful for her. She has been using 30 mg daily and feels that that has been helpful for both her low back and bilateral lower extremity pain. She did have some initial nausea but after a week that did resolve. Five weeks ago she did have a fall where she landed on her knees on a hardwood floor. She had extensive bruising in the anterior portion of the knee and developed swelling in the anterior portion of the knee. She saw Delmi Humphries PA-C, who very appropriately had her ice and rest it. Ms. Simmons reports that pain has been improving although is still bothersome for her. She notes this pain is located in the anterior portion of the knee. She notes some occasional swelling in the anterior portion of the knee without any warmth or erythema. She denies any catching, locking, buckling, or give-way of the knee. PHYSICAL EXAMINATION GENERAL: Pleasant 66-year-old female in no acute distress. GAIT: Nonantalgic. KNEE: There is trace effusion present in the right knee. There is mild fullness noted in the prepatellar bursa. There is no warmth or erythema about the right knee. Range of motion from 0 to 130 degrees. There is tenderness to palpation over the lateral medial joint lines as well as directly over the patella. There is no tenderness over the patellar tendon. Preserved knee extension on the right without pain. IMPRESSION/REPORT/PLAN 1. 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 2. Lumbar spondylosis. 3. Lumbar spinal stenosis. 4. Bilateral knee degenerative joint disease. 5. Small fiber peripheral neuropathy. Ms. Simmons's symptoms and examination are most consistent with a component of prepatellar bursitis. She has known degenerative changes in the right knee and certainly may have had an exacerbation of her underlying degenerative changes with her fall that she had 5 weeks ago. PLAN: 1. We are going to proceed today with x-rays of the right knee with Ms. Simmons's discomfort and with her previous swelling and tenderness directly over the patella. 2. I am going to have Ms. Simmons increase her Cymbalta to 60 mg daily. She has been tolerating this well. 3. We will plan on being in contact with Ms. Simmons with the results of her right knee x-rays. Bennett be planning to go to [place] soon for the winter, so we will contact her in 1 month and see how she is progressing with respect to her knee before she leaves. Ms. Simmons knows to be in contact with zaynab to that time if she notes any worsening or worrisome symptoms which we went over in detail today. She voiced agreement and understanding with this plan. Total time 25 minutes, total counseling and coordination of care time greater than 15 minutes. Charito Dalton M.D./kyleigh Electronically Signed By: CHARITO DALTON MD On: 02/16/2017 03:56 PM Modified by and Electronically Signed by: CHARITO DALTON MD On: 02/16/2017 03:56 PM Source: [facility] MHSDOLBEYNONRADSYS Document Id: [id number] documented in this encounter Nursing Notes Sunshine Anglin L.P.N. - 02/10/2017 4:54 PM CDT xray results Patient notified Electronically Signed By: SUNSHINE ANGLIN LPN On: 02/10/2017 04:54 PM Source: [employer] writewith Document Id: [id number] documented in this encounter Miscellaneous Notes Miscellaneous - Sunshine Anglin L.PGiovanyN. - 02/17/2017 10:44 AM CDT Reminder Msg From: SUNSHINE ANGLIN LPN To: Physical Medicine and Rehabilitation Staff; Sent: 02/17/2017 10:44:17 CDT Show up: 03/12/2017 10:44:00 CDT Subject: Reminder Msg Please Remember to: see how she is doing PATIENT: ( ) Call Patient ( ) Ask Patient to ( ) ( ) Call Relative ( ) Schedule Patient ( ) ( ) Call for Novelty Maker ( ) Follow up on Results ( ) Other: PROVIDER: ( ) Call Physician ( ) Call Pharmacist ( ) Call Lab ( ) Other: Special Instructions: Comments: Source: [facility] writewith Document Id: [id number] Miscellaneous - Sunshine Anglin L.P.N. - 02/10/2017 10:27 AM CDT Reminder Msg Document Contains Addenda Addendum by CHARITO DALTON MD on March 21, 2017 12:31:17 CDT From: CHARITO DALTON MD To: Physical Medicine and Rehabilitation Staff; Sent: 03/21/2017 12:31:17 CDT Show up: 03/21/2017 12:31:00 CDT Subject: RE: Reminder Msg Ok, I am glad to hear that. Addendum by SUNSHINE ANGLIN LPN on March 16, 2017 12:56:09 CDT From: SUNSHINE ANGLIN LPN ( Physical Medicine and Rehabilitation Staff) To: CHARITO DALTON MD; Sent: 03/16/2017 12:56:09 CDT Show up: 03/16/2017 12:56:00 CDT Subject: RE: Reminder Msg Spoke with patient. She states that her knee is doing ok right now but her back hurts only when she is walking up or down steps. Addendum by SUNSHINE ANGLIN LPN on March 16, 2017 11:54:38 CDT Left message for patient to return call. From: SUNSHINE ANGLIN LPN ( Physical Medicine and Rehabilitation Staff) To: Physical Medicine and Rehabilitation Staff; Sent: 02/10/2017 10:27:27 CDT Show up: 03/12/2017 10:27:00 CDT Subject: Reminder Msg Please Remember to: call her to see how she is doing PATIENT: ( ) Call Patient ( ) Ask Patient to ( ) ( ) Call Relative ( ) Schedule Patient ( ) ( ) Call for Novelty Maker ( ) Follow up on Results ( ) Other: PROVIDER: ( ) Call Physician ( ) Call Pharmacist ( ) Call Lab ( ) Other: Special Instructions: Comments: Source: [facility] POWERCHART Document Id: [id number] Miscellaneous - Charito Dalton M.D. - 02/10/2017 9:57 AM CDT Ambulatory Patient Summary [address] [id number] Visit Information Name: STEPH SIMMONS [facility] Number: [phone] Current Date: 02/10/2017 09:57:18 Physicians Attending Provider: CHARITO DALTON MD Primary Care Provider: JOSTIN HERNANDEZ PA-C STEPH SIMMONS has been given the following list of follow-up instructions, medication list, and patient education materials: Follow-up Instructions Your Medications Here is a list of your medications. It is important to take your medications as directed. Use a pillbox or chart to help remind you to take your medications. Please let your doctor or nurse know if you have problems taking your medications. Medication/Strength How to Take Indications/Special Instructions/Comments/Notes for Patient Medication Changes/Routing acetaminophen (Tylenol 500 mg oral tablet) Oral, three times a day aspirin (aspirin 325 mg oral tablet) 1 Tablet(s), Oral, once a day atorvastatin (Lipitor 40 mg oral tablet) 1 Tablet(s), Oral, once a day (at bedtime) bifidobacterium infantis (Align 4 mg oral capsule) 1 cap, Oral, once a day bilberry (bilberry) See Instructions Takes 1 cap daily calcium-vitamin D (Calcium 600+D) Oral, two times a day cetirizine (ZyrTEC) Oral, once a day DULoxetine (Cymbalta 60 mg oral delayed release capsule) 1 cap, Oral, once a day New Routed to [address] [address] esomeprazole (NexIUM OTC) 20 mg, Oral, once a day glucosamine-chondroitin (glucosamine-chondroitin) once a day latanoprost ophthalmic (latanoprost 0.005% ophthalmic solution) 1 Drops, Eyes(Both), once a day (at bedtime) Misc Prescription (Misc Prescription) 0.005 %, 1 drop, Eyes(Both), once a day multivitamin (multivitamin) once a day multivitamin (Vitamin B Complex oral capsule) 1 cap, Oral, once a day multivitamin with minerals (Ocuvite) 1 Tablet(s), Oral, once a day naproxen (Aleve 220 mg oral tablet) 2 Tablet(s), Oral, every 8 hours as needed for pain omega-3 polyunsaturated fatty acids (omega-3 polyunsaturated fatty acids 500 mg oral capsule) See Instructions 2 cap(s) PO 2xDay / i capsule twice a day. pantoprazole (Protonix 40 mg oral delayed release tablet) 1 Tablet(s), Oral, once a day raNITIdine (Zantac 300 oral tablet) 1 Tablet(s), Oral, once a day (at bedtime) senna (senna 8.6 mg oral tablet) 1 Tablet(s), Oral, two times a day as needed for constipation *traMADol (traMADol 50 mg oral tablet) 1 Tablet(s), Oral, every 4 hours as needed for Pain * You have let us know that you are not taking this medication as listed. Please talk with your primary care provider or the health care provider who prescribed the medication as soon as possible. Stop Taking the Following Medications: Medication list as of 02-10-17 09:57 Attention: If you have any medications at home that are not on this list, DO NOT take them until youcontact your provider for clarification. Give a copy of your medication list to your primary care provider. Update your medication list any time medications or doses are changed and carry your medication list at all times in case of emergency. Electronically Signed By: CHARITO DALTON MD Signed On:10-FEB-2017 09:56:25 Your Allergies & Intolerances Substance Reaction Symptoms Category Comments amoxicillin diarrhea Drug morphine hives Drug piroxicam swollen hands and feet, ankles Drug Levaquin hives Drug Lyrica fatigue, edema at high dose Drug Your Problem List Problem Status Onset Comments Degenerative disc disease* Active Arthritis, unspecified* Active Esophageal reflux (GERD) Active Partial colectomy Active H/O: hysterectomy Active Neuropathy peripheral Active 02/23/2011 Hypercholesterolemia* Active Impaired Fasting Glucose Active Tiredness/Fatigue Active 10/31/2012 Stroke Active 12/11/2012 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 Consider Using Patient Online Services Patient Online Services is a secure online and Mobile application that lets you: ?? View lab and test results ?? View portions of your medical record including clinical notes, immunizations and discharge summaries ?? Request an appointment or medication refill ?? Review your appointment schedule ?? Send secure messages to your care team Its easy to create an account if you dont have one. Go to [email or web address] and click on Create Your Account. Then, follow the directions to complete the online form. Youll be asked for your [facility] number which you can find at the top of this document. Your Goals/Additional instructions: Source: [facility] POWERCHART Document Id: [id number] Miscellaneous - Charito Dalton M.D. - 02/10/2017 9:57 AM CDT Ambulatory Discharge Medication List [address] [id number] Visit Information Name: STEPH SIMMONS [facility] Number: [phone] Current Date: 02/10/2017 09:57:17 Attending Provider: CHARITO DALTON MD Primary Care Provider: JOSTIN HERNANDEZ PA-C STEPH SIMMONS has been given the following list of medications: Your Medications It is important to take your medications as directed. Use a pill box or chart to help remind you to take your medications. Please let your doctor or nurse know if you have problems taking your medications. Medication/Strength How to Take Indications/Special Instructions/Comments/Notes for Patient Medication Changes/Routing acetaminophen (Tylenol 500 mg oral tablet) Oral, three times a day aspirin (aspirin 325 mg oral tablet) 1 Tablet(s), Oral, once a day atorvastatin (Lipitor 40 mg oral tablet) 1 Tablet(s), Oral, once a day (at bedtime) bifidobacterium infantis (Align 4 mg oral capsule) 1 cap, Oral, once a day bilberry (bilberry) See Instructions Takes 1 cap daily calcium-vitamin D (Calcium 600+D) Oral, two times a day cetirizine (ZyrTEC) Oral, once a day DULoxetine (Cymbalta 60 mg oral delayed release capsule) 1 cap, Oral, once a day New Routed to [address] [address] esomeprazole (NexIUM OTC) 20 mg, Oral, once a day glucosamine-chondroitin (glucosamine-chondroitin) once a day latanoprost ophthalmic (latanoprost 0.005% ophthalmic solution) 1 Drops, Eyes(Both), once a day (at bedtime) Misc Prescription (Misc Prescription) 0.005 %, 1 drop, Eyes(Both), once a day multivitamin (multivitamin) once a day multivitamin (Vitamin B Complex oral capsule) 1 cap, Oral, once a day multivitamin with minerals (Ocuvite) 1 Tablet(s), Oral, once a day naproxen (Aleve 220 mg oral tablet) 2 Tablet(s), Oral, every 8 hours as needed for pain omega-3 polyunsaturated fatty acids (omega-3 polyunsaturated fatty acids 500 mg oral capsule) See Instructions 2 cap(s) PO 2xDay / i capsule twice a day. pantoprazole (Protonix 40 mg oral delayed release tablet) 1 Tablet(s), Oral, once a day raNITIdine (Zantac 300 oral tablet) 1 Tablet(s), Oral, once a day (at bedtime) senna (senna 8.6 mg oral tablet) 1 Tablet(s), Oral, two times a day as needed for constipation *traMADol (traMADol 50 mg oral tablet) 1 Tablet(s), Oral, every 4 hours as needed for Pain * You have let us know that you are not taking this medication as listed. Please talk with your primary care provider or the health care provider who prescribed the medication as soon as possible. Stop Taking the Following Medications: Medication list as of 02-10-17 09:57 Attention: If you have any medications at home that are not on this list, DO NOT take them until youcontact your provider for clarification. Give a copy of your medication list to your primary care provider. Update your medication list any time medications or doses are changed and carry your medication list at all times in case of emergency. Electronically Signed By: CHARITO DALTON MD Signed On:10-FEB-2017 09:56:25 Additional Information: Source: [facility] POWERCHART Document Id: [id number] Miscellaneous - Sunshine Anglin L.P.N. - 02/10/2017 9:20 AM CDT Adult Change Management Administrator Intake/History Adult Change Management Administrator Intake/History Entered On: 02/10/2017 9:21 CDT Performed On: 02/10/2017 9:20 CDT by SUNSHINE ANGLIN LPN Intake Systolic Blood Pressure : 138 mmHg Diastolic Blood Pressure : 82 mmHg NIBP Mean : 101 mmHg BP Location : Left upper extremity Blood Pressure Cuff Size : Regular Height : 168 cm(Converted to: 5 ft 6 inch(es), 66 inch(es)) Actual Weight : 85.65 kg(Converted to: 188 lb 13 oz) Dosing Weight Clinic : 85.65 kg Clinic BSA : 2 Body Mass Index : 30.35 kg/m2 SUNSHINE ANGLIN LPN - 02/10/2017 9:20 CDT General Info Information Given By : Patient Languages : [place] Is Patient Female and 13-50 no hysterectomy : No SUNSHINE ANGLIN LPN - 02/10/2017 9:20 CDT Subjective Pain Symptoms : No SUNSHINE ANGLIN LPN - 02/10/2017 9:20 CDT Dependent Habits Exposure to Tobacco Smoke : Other: quit 03/1994 Smoking Status : Former smoker Tobacco 2A : Yes Tobacco Use/Currently Using : No Tobacco Use/Last 30 Days : No Tobacco Use/Last 12 months : No Tobacco Last Use/Month : March Tobacco Last Use/Year : 1993 SUNSHINE ANGLIN LPN - 02/10/2017 9:20 CDT Caffeine Use Grid Caffeine Use : Current Type : Chocolate, Soft drinks, Tea Frequency : Occasionally Last Use : 06/02/2016 SUNSHINE ANGLIN LPN - 02/10/2017 9:20 CDT Recreational Drug Use Grid Drug Use : None SUNSHINE ANGLIN QA DEVELOPER - 02/10/2017 9:20 CDT Source: [facility] POWERCHART Document Id: [id number] CDT!36 documented in this encounter Plan of Treatment Upcoming Encounters Date Type Specialty Care Team Description 03/25/2022 Office Visit Family Medicine Leslie Gonzalez M.D. [address] [place] [address] [phone] (Wo rk) documented as of this encounter Procedures Procedure Name Priority Date/Time Associated Diagnosis Comme nts DX KNEE RIGHT 4+ Routine 02/10/2017 10:02 AM Resu lts for this VIEWS CDT procedure are i n the results section. documented in this encounter Results DX Knee Right 4+ Views (02/10/2017 10:02 AM CDT) Anatomical Region Laterality Modality Lower Extremity, Knee Right Radiographic Imagi ng Specimen (Source) Anatomical Collection Method Collection Time Re ceived Time Location / / Volume Laterality 02/10/2017 10:02 AM CDT Addenda Addendum by ProviderDemar M.D. o n 02/10/2017 10:02 AM CDT RAD^^^OW XR Knee Right 4 or more views 02/10/2017 10:02:10 XR Knee Right 4 or more views Addendum by ProviderDemar M.D. o n 02/10/2017 10:02 AM CDT RAD^^^OW XR Knee Right 4 or more views 02/10/2017 10:02:10 XR Knee Right 4 or more views Impressions 02/10/2017 10:34 AM CDT ?? 1. Negative right knee. 2. Mild left knee degenerative joint dis ease. Narrative 02/10/2017 10:34 AM CDT EXAM: XR Knee Right 4 or more views INDICATION: knee pain, fall 5-6 weeks ag o ?? AGE: 66 years-old COMPARISON: 03/16/16 FINDINGS: ?? Right knee: No acute fracture or subluxa tion. No degenerative joint disease. ?? Left knee: 2 views left knee for compari son purposes shows tricompartmental osteophyte formation. Procedure Note Kris Patel M.D. / ProviderDemar M.D. - 03/10/2017 EXAM: XR Knee Right 4 or more views INDICATION: knee pain, fall 5-6 weeks ag o AGE: 66 years-old COMPARISON: 03/16/16 FINDINGS: Right knee: No acute fracture or subluxa tion. No degenerative joint disease. Left knee: 2 views left knee for compari son purposes shows tricompartmental osteophyte formation. IMPRESSION: 1. Negative right knee. 2. Mild left knee degenerative joint dis ease. Lory Figueroa(R), RDb(R)(M) IMG DIAGNOSTIC IMAGING PROCEDURES documented in this encounter Visit Diagnoses Not on filedocumented in this encounter Care Teams Appraisal Coordinator Relationship Specialty Start Date End Date Jostin Hernandez P.A.-C. PCP - General 11/18/[address] [place] [phone] documented as of this encounter
--- OUTSIDE RECORDS SUMMARY | 2022-03-22 15:48 | XMS_ITS | Encounter Summary ---
:1950 Author Organization [facility] Address [address] [place] [address] Care Team Providers Name Role Phone Merrill Bee P.A.-C. Primary Care Provider [phone] Encounter Details Date Type Department Care Team Description 11/17/2018 Hospital Encounter Department of Rohit Hypercho lesterolemia; Laboratory Medicine Waldo Momin Neuropathy Peripheral in [address] [facility] [address] [place], [place] [phone] [address] (Work) [phone] Social History Tobacco Use Types Packs/Day Years Used Date Smoking Tobacco: Former Cigarettes Quit : 1993 Smokeless Tobacco: Never Alcohol Use Standard Drinks/Week Comments Yes 16 (1 standard drink = 0.6 oz pure alcoh ol) Alcohol Habits Answer Date Recorded How often do you have a drink containing 4 or more times a w port gamble 10/05/2021 alcohol? How many drinks containing alcohol [...] or relatives? How often do you attend gnosticist or 1 to 4 times per year 07/2021 church services? Do you belong to any clubs or Yes 10/05/2021 organizations such as gnosticist groups, unions, fraternal or athletic groups, or school groups? How often do you attend meetings of the More than 4 times [facility] year 10/05/2021 clubs or organizations [...] or slept in a detention (including now)? Sex Assigned at Date Recorded [...] Visit Family Medicine Leslie Gonzalez M.D. [address] [place] [address] [phone] (Wo rk) documented as of this encounter Procedures Procedure Name Priority Date/Time Associated Comments Diagnosis LIPID PANEL, S Routine 11/17/2018 8:40 AM Hypercholesterolemi Results for this CDT a procedure are in Neuropathy the results Peripheral section. COMPREHENSIVE Routine 11/17/2018 8:40 AM Hypercholesterolemi R esults for this METABOLIC PANEL, S/P CDT a procedure are in Neuropathy the results Peripheral section. documented in this encounter Results (ABNORMAL) Lipid Panel (11/17/2018 8:40 AM CDT) P athologist Signature Cholesterol, 205 (H) mg/dL 11/17/2018 Total 11:08 AM CDT Comment: ----REFERENCE VALUE---- Desirable: < 200 Borderline high: 200 - 239 High: > or = 240 Triglycerides 156 (H) mg/dL 11/17/2018 11:08 AM CDT Comment: ----REFERENCE VALUE---- Normal: <150 Borderline high: 150-199 High: 200-499 Very high: > or =500 Cholesterol, HDL, S 73 >=50 mg/dL 11/17/2018 11:08 AM CDT Calculated LDL 101 mg/dL 11/17/2018 11:08 AM CDT Comment: ----REFERENCE VALUE---- Desirable: <100 Above Desirable: 100-129 Borderline high: 130-159 High: 160-189 Very high: > or =190 Cholesterol, Non-HDL, Calculated 132 mg/dL 019 11:08 AM CDT Comment: ----REFERENCE VALUE---- Desirable: <130 Above Desirable: 130-159 Borderline high: 160-189 High: 190-219 Very high: > or =220 Specimen Anatomical Collection Method Collection Time Receive d Time (Source) Location / / Volume Laterality Blood (Blood, 11/17/2018 8:40 AM 11/18/19 19 Venous) CDT 10:31 AM CDT Merrill Bee P.A.-C. LAB BLOOD ADD-ON Performing Organization Address City/State/ZIP Code Phon e Number [facility] [address] [place] [phone] LAB (ABNORMAL) Comprehensive Metabolic Panel (11/17/2018 8:40 AM CDT) P athologist Signature Potassium, S 5.8 (H) 3.6 - 5.2 11/17/2018 mmol/L 11:08 AM CDT Sodium, S 141 135 - 145 11/17/2018 mmol/L 11:08 AM CDT Chloride, S 102 98 - 107 11/17/2018 mmol/L 11:08 AM CDT Bicarbonate, S 28 22 - 29 11/17/2018 mmol/L 11:08 AM CDT Anion Gap 11 7 - 15 11/17/2018 11:08 AM CDT BUN (Blood Urea 27 (H) 6 - 21 11/17/2018 Nitrogen), S mg/dL 11:08 AM CDT Creatinine 0.82 0.59 - 11/17/2018 1.04 mg/dL 11:08 AM CDT eGFR-Non 73 >=60 11/17/2018 Black/ mL/min/BSA 11:08 AM CDT [place] Comment: ----ADDITIONAL INFORMATION---- Estimated GFR calculated using the 2009 CKD_EPI creatinine equation. eGFR-Black/ 84 >=60 mL/min/BSA 2018 11:08 AM CDT Comment: ----ADDITIONAL INFORMATION---- Estimated GFR calculated using the 2009 CKD_EPI creatinine equation. Calcium, Total, S 9.7 8.8 - 10.2 mg/dL 11/17/2018 11:0 8 AM CDT Glucose, S 129 70 - 140 mg/dL 11/17/2018 11:08 AM CDT Protein, Total, S 7.0 6.3 - 7.9 g/dL 11/17/2018 11:08 AM CDT Albumin, S 4.5 3.5 - 5.0 g/dL 11/17/2018 11:08 AM CDT Aspartate Aminotransferase (AST), 22 8 - 43 U/L 11/17 11:08 AM CDT S Alkaline Phosphatase, S 75 35 - 104 U/L 11/17/2018 11 :08 AM CDT Alanine Aminotransferase (ALT), S 24 7 - 45 U/L 11/17 11:08 AM CDT Bilirubin, Total, S 0.3 <=1.2 mg/dL 11/17/2018 11:08 A M CDT Specimen Anatomical Collection Method Collection Time Receive d Time (Source) Location / / Volume Laterality Blood (Blood, 11/17/2018 8:40 AM 11/18/19 19 Venous) CDT 10:31 AM CDT Merrill Bee P.A.-C. LAB BLOOD ADD-ON Performing Organization Address City/State/ZIP Code Phon e Number [facility] [address] [place] [phone] LAB documented in this encounter Visit Diagnoses Diagnosis Hypercholesterolemia Neuropathy Peripheral documented in this encounter Care Teams Chief Lifestyle Officer Relationship Specialty Start Date End Date Merrill Bee P.A.-C. PCP - General 11/18/16 [address] [place] [phone] documented as of this encounter
--- OUTSIDE RECORDS SUMMARY | 2022-03-22 15:48 | XMS_ITS | Encounter Summary ---
:1950 Author Organization [facility] Address [address] [place] [address] Care Team Providers Name Role Phone Merrill Bee P.A.-C. Primary Care Provider Reason for Referral Outpatient (Routine) - Closed Specialty Diagnoses / Procedures Referred By Contact Refer red To Contact Family Medicine Merrill Bee P. A.-C. [address] [phone] Referral ID Status Reason Start Date Expiration Date Visits Requ ested Visits Authorized [id number] Closed 11/18/2017 11/18/2018 1 1 Outpatient (Routine) - Closed Specialty Diagnoses / Procedures Referred By Contact Refer red To Contact Family Medicine Merrill Bee P. A.-C. [address] [phone] Referral ID Status Reason Start Date Expiration Date Visits Requ ested Visits Authorized [id number] Closed 11/18/2017 11/18/2018 1 1 Reason for Visit Reason Comments Annual Exam concern with falling and L b ig toe bruised Outpatient (Routine) - Closed Specialty Diagnoses / Procedures Referred By Contact Refer red To Contact Merrill Bee P. A.-C. [address] [place] [phone] Referral ID Status Reason Start Date Expiration Date Visits Requ ested Visits Authorized [id number] Closed 03/18/2017 09/14/2017 1 1 Encounter Details Date Type Department Care Team Description 11/18/2017 Office Visit Department of Rohit, Hypercholester olemia (Primary Dx); Family Medicine, Merrill, Neuropathy Peripheral; [facility], P.[facility]. Stenosis Spinal; in [place], [address] Reflux Esophageal; [facility] [place] Onychomycosis; [address] [address] Labyrinthitis Viral Bilateral; [facility] [phone] Carpal Tunnel Syndrome Left [phone] (Work) [phone] Social History Tobacco Use Types Packs/Day Years Used Date Smoking Tobacco: Former Cigarettes Quit : 1993 Smokeless Tobacco: Never Alcohol Use Standard Drinks/Week Comments Yes 16 (1 standard drink = 0.6 oz pure alcoh ol) Alcohol Habits Answer Date Recorded How often do you have a drink containing 4 or more times a w [place]key 10/05/2021 alcohol? How many drinks containing alcohol [...] 1 to 4 times per year 07/2021 faith services? Do you belong to any clubs [...] slept in a skilled nursing (including now)? Sex Assigned at Date Recorded Female 03/07/2018 9:31 AM CDT documented as of this encounter Last Filed Vital Signs Vital Sign Reading Time Taken Comments Blood Pressure 140/70 11/18/2017 9:46 AM CDT Pulse 88 11/18/2017 9:39 AM CDT Temperature 36.6 ??C (97.9 ??F) 11/18/2017 9:39 AM CDT Respiratory Rate - - Oxygen Saturation - - Inhaled Oxygen Concentration - - Weight 82 kg (180 lb 12.4 oz) 11/18/2017 9:39 AM CDT Height 169 cm (5' 6.54) 11/18/2017 9:39 AM CDT Body Mass Index 28.71 11/18/2017 9:39 AM CDT documented in this encounter H&P Notes Merrill Bee P.A.-C. - 11/18/2017 9:45 AM CDT CHIEF COMPLAINT / REASON FOR VISIT Steph Simmons is a 67 y.o. female who presents for evaluation of Annual Exam (concern with falling and L big toe bruised). HISTORY OF PRESENT ILLNESS Steph presents today for her yearly exam and she has some different concerns. She has a history of a stroke in the past that affected her peripheral vision. She has recently been having issues with her balance and this is concerning she says when she gets up and turns quickly she has fallen over a couple different x1 time she fell on her lip and had a contusion on her lip that is still bothering her. She has never passed out but says that is more of a lightheadedness particularly with movement. She also has some discoloration of her toenails in the past she has had this treated and her toenails removed and lasered but 1 of the toes is still could in the other 1 is not. She is wanting what should bedone about this. She also has hyperlipidemia that is been well controlled with medication. She has spinal stenosis as well as peripheral neuropathy that has responded very nicely to Cymbalta. PAST MEDICAL HISTORY: Patient Active Problem List Diagnosis ??? Stroke (HCC) ??? Reflux Esophageal ??? Hypercholesterolemia ??? Neuropathy Peripheral PAST SURGICAL HISTORY: Past Surgical History: Procedure Laterality Date ??? APPENDECTOMY N/A 11/18/1993 Appendectomy ??? CARPAL TUNNEL RELEASE Right 1980 ??? HYSTERECTOMY 1993 ??? LEFT COLECTOMY N/A 11/18/1993 Resection of descending colon SOCIAL HISTORY: Social History Substance Use Topics ??? Smoking status: Former Smoker Quit date: 1993 ??? Smokeless tobacco: Never Used ??? Alcohol use 9.6 oz/week 7 Glasses of wine, 7 Cans of beer, 2 Standard drinks or equivalent per week FAMILY HISTORY: Family History Problem Relation Age [...] or enlarged lymph nodes. MEDICATIONS: Current Outpatient Prescriptions Medication Sig Dispense Refill ??? acetaminophen (TYLENOL [...] drop into both eyes at bedtime. ??? MULTIVITAMIN ORAL daily. ??? VIT C/VIT E/LUTEIN/MIN/OMEGA-3 (OCUVITE ORAL) Take 1 tablet by mouth daily. ??? meclizine (ANTIVERT) 25 mg tablet Take 1 tablet (25 mg total) by mouth 3 (three) times a day as needed for dizziness. 30 tablet 0 ??? terbinafine (LamISIL) 250 mg tablet Take 1 tablet (250 mg total) by mouth daily. 84 tablet 1 No current facility-administered medications for this visit. ALLERGIES: Allergies Allergen Reactions ??? Amoxicillin Diarrhea ??? Levofloxacin Hives ??? Morphine Hives ??? Piroxicam Other (see comments) swollen hands and feet, ankles ??? Pregabalin Other (see comments) fatigue, edema at high dose VITALS: Vitals: 11/18/17 0939 11/18/17 0946 BP: 146/80 140/70 BP Location: Left arm Patient Position: Sitting Cuff Size: Large Pulse: 88 Temp: 36.6 ??C Weight: 82 kg Height: 169 cm Body mass index is 28.71 kg/m??. OBJECTIVE Vitals: 11/18/17 0939 11/18/17 0946 BP: 146/80 140/70 BP Location: Left arm Patient Position: Sitting Cuff Size: Large Pulse: 88 Temp: 36.6 ??C Weight: 82 kg Height: 169 cm Body mass index is 28.71 kg/m??. PHYSICAL EXAM GENERAL: Patient appears in no acute distress. ENT: TMs no erythema. Throat no erythema. NECK: No lymphadenopathy. No thyroid masses. HEART: Regular rate and rhythm. No murmurs. LUNGS: Clear to auscultation. ABDOMEN: Soft and nontender to palpation. Breasts: Symmetrical no masses appreciated no axillary lymphadenopathy Nails: She has thickened blue to black discoloration of her great toe. No other nails are affected IMPRESSION / REPORT / PLAN #1 Hypercholesterolemia Lipids are well controlled with her current medical regimen which we will continue #2 Neuropathy Peripheral She is really gotten some benefit from the Cymbalta with this and she will continue on that #3 Stenosis Spinal She continues to have pain but has had a nice response to the Cymbalta so she will continue that I renewed this for her today #4 Reflux Esophageal She has esophageal reflux that flares up occasionally she has done well with Nexium [id number] is not taking Protonix anymore #5 Onychomycosis I did remove a piece of her affected toenail today I am going to send this in for fungal dermal culture and I am going to start her on Lamisil. We used 250 mg a day for the next 3 months I will see cely at that time with liver function testing. We may need to use another 3 months at that point andshe will let us know how she is responding. She has any questions or problems in the meantime she will let us know #6 Labyrinthitis Viral Bilateral I was unable to reproduce her vertigo today we discussed the etiology of labyrinthitis he is going to try some meclizine and see if this makes a difference. If it does not we will consider further evaluation with possible MRI #7 Carpal Tunnel Syndrome Left She has some tingling in her left hand and this has been bothering her now for the last couple months. To kneel sign was negative Phalen sign was also negative. I am going to have her try and night wrist splint and if it does get better she will let us know. Total time spent today with patient was 40 min of which 30 was [id number]-icho coordination of care and counseling Merrill Bee P.A.-C. documented in this encounter Plan of Treatment Upcoming Encounters Date Type Specialty Care Team Description 03/25/2022 Office Visit Family Leslie Dudley M.D. [address] [place] [address] [place] [phone] (Wo rk) Scheduled Referrals Name Type Priority Associated Diagnoses Order S chedule Family Medicine Outpatient Referral Routine Expec marc: office visit 02/18/2018 (clinic) (Approximate), Expires: 11/18/2020 Family Medicine Outpatient Referral Routine Expec marc: office visit 11/18/2018 (clinic) (Approximate), Expires: 11/18/2020 documented as of this encounter Procedures Procedure Name Priority Date/Time Associated Diagnosis Comme nts FUNGAL CULTURE, Routine 11/18/2017 10:19 Onychomycosis Results for this DERMAL AM CDT procedure are i n the [...] Organization Address City/State/ZIP Code Phon e Number [facility] [address] [place] [address] LAB (ABNORMAL) Comprehensive Metabolic Panel (11/17/2018 8:40 [...] >=60 11/17/2018 Black/ mL/min/BSA 11:08 AM CDT [place]i Comment: ----ADDITIONAL INFORMATION---- Estimated GFR calculated using [...] P.A.-C. LAB BLOOD ADD-ON Performing Organization Address City/[facility]/ZIP Code Phon e Number [facility] [address] [place] [address] LAB ALT (Alanine Aminotransferase) (02/22/2018 7:47 AM CDT) [facility] CmyCasa Method Time Signature Alanine 30 7 - 45 02/22/[address] [facility] Aminotransferase U/L 11:16 AM CDT [facility] (ALT), S [facility]- [place] LAB Specimen Anatomical Collection Method Collection Time Receive d Time (Source) Location / / Volume Laterality Blood (Blood, 02/22/2018 7:47 AM 02/23/20 18 Venous) CDT 10:57 AM CDT Merrill Bee P.A.-C. LAB BLOOD ADD-ON Performing Organization Address City/[facility]/ZIP Code Phon e Number [facility] [place] [address], [place] [address] LAB AST (Aspartate Aminotransferase) (02/22/2018 7:47 AM CDT) [facility] CmyCasa Method Time Signature Aspartate 25 8 - 43 02/22/[address] [facility] Aminotransferase U/L 11:16 AM CDT [facility] (AST), [facility]- [place] LAB Specimen Anatomical Collection Method Collection Time Receive d Time (Source) Location / / Volume Laterality Blood (Blood, 02/22/2018 7:47 AM 02/23/20 18 Venous) CDT 10:57 AM CDT Merrill Bee P.A.-C. LAB BLOOD ADD-ON Performing Organization Address City/[facility]/ZIP Code Phon e Number [facility] [place] [address], [place] [address] LAB (ABNORMAL) Fungal Culture, Dermal (11/18/2017 10:19 AM CDT) Component Value Ref Test Analysis Performed At Patholo gist Range Method Time Signature Fungal ASPERGILLUS 12/19/[address] [facility] Culture, NIGER (A) 8:59 AM CDT LABORATORIES - Dermal [place] Fungal ALTERNARIA sp 12/19/[address] [facility] Culture, (A) 8:59 AM CDT LABORATORIES - Dermal [place] Specimen Anatomical Collection Method Collection Time Receive d Time (Source) Location / / Volume Laterality Nail (Nail 11/18/2017 10:19 11/18/2017 [place]) AM CDT 10:24 PM CDT Comment: Specimen Source Site: Nail Merrill Bee P.A.-C. LAB MICROBIOLOGY - GENERAL O JUSTIN Performing Organization Address City/State/ZIP Code Phon e Number [facility] LABORATORIES - [address] [place], [place] [address] [place] documented in this encounter Visit Diagnoses Diagnosis Hypercholesterolemia - Primary Neuropathy Peripheral Stenosis Spinal Reflux Esophageal Onychomycosis Labyrinthitis Viral Bilateral Carpal Tunnel Syndrome Left documented in this encounter Care Teams Geologist Petroleum Relationship Specialty Start Date End Date Merrill Bee P.A.-C. PCP - General 11/18/[address] [place] [phone] documented as of this encounter
--- OUTSIDE RECORDS SUMMARY | 2022-03-22 15:48 | XMS_ITS | Encounter Summary ---
:1950 Author Organization [facility] Address [address] [place] [address] Care Team Providers Name Role Phone Merrill Bee P.A.-C. Primary Care Provider [phone] Encounter Details Date Type Department Care Team Description 11/09/2017 Hospital Encounter Department of Cielo Bee Mammogram Radiology in [place] Momin Average Risk Patient [place], [place] [address] [place], [place] [facility] [place] [phone] [phone] Social History Tobacco Use Types Packs/Day Years [...] 1 to 4 times per year 07/2021 tenriism services? Do you belong to any clubs [...] (LIPITOR) 40 Take 1 tablet by 0 /0 10/201611/18/2017 mg tablet mouth at bedtime. Bifidobacterium infantis [...] Office Visit Family Medicine Leslie Gonzalez M.D. [address] [place] [phone] (Wo rk) documented as of this encounter Procedures Procedure Name Priority Date/Time Associated Comments Diagnosis BI BREAST RAD - Routine 11/09/2017 7:55 Screening Results for this SCREENING (most inpatients AM CDT Mammogram Average proced ure are in BILATERAL and all Risk Patient the results outpatients) section. documented in this encounter Results BI Breast Screening Bilateral (11/09/2017 7:55 AM CDT) Anatomical Region Laterality Modality Breast, Breast Imaging RST LOS Bilateral Mammograp hy Specimen (Source) Anatomical Collection Method Collection Time Re ceived Time Location / / Volume Laterality 11/09/2017 9:58 AM CDT Impressions 11/09/2017 9:58 AM CDT IMPRESSION: ??Negative. RECOMMENDATION: ??Annual Screening Mammo gram ASSESSMENT: ??BI-RADS: 1: Negative. Narrative 11/09/2017 9:58 AM CDT EXAM: ??BI BREAST SCREENING BILATERAL Current study was evaluated with a Compu ter Aided Detection (CAD) system. INDICATION: ??Screening mammogram. COMPARISON: ??Prior exams were available for comparison. DENSITY: ??c. The breast(s) are heteroge neously dense, which may obscure small masses. FINDINGS: ??No mammographic findings of malignancy. Procedure Note Martinez Bernard M.D. - 11/09/2017Forma tting of this note might be different from the original. EXAM: BI BREAST SCREENING BILATERAL Current study was evaluated with a Compu ter Aided Detection (CAD) system. INDICATION: Screening mammogram. COMPARISON: Prior exams were available f or comparison. DENSITY: c. The breast(s) are heterogene ously dense, which may obscure small masses. FINDINGS: No mammographic findings of ma lignancy. IMPRESSION: Negative. RECOMMENDATION: Annual Screening Mammogr am ASSESSMENT: BI-RADS: 1: Negative. Merrill Bee P.A.-C. IMG BI PROCEDURES documented in this encounter Visit Diagnoses Diagnosis Screening Mammogram Average Risk Patient documented in this encounter Care Teams Assembler Flexible Leads Relationship Specialty Start Date End Date Merrill Bee P.A.-C. PCP - General 11/18/16 [address] [place] [phone] documented as of this encounter
--- OUTSIDE RECORDS SUMMARY | 2022-03-22 15:48 | XMS_ITS | Encounter Summary ---
:1950 Author Organization [facility] Address [address] [place] [address] Care Team Providers Name Role Phone Merrill Bee P.A.-C. Primary Care Provider [phone] Reason for Visit Reason Comments Med Refill Encounter Details Date Type Department Care Team Description 01/07/2018 Refill Department of Family Medicine, Merrill Rodriguez P.A.-C. Med Refill [facility], in [address] [place] [phone] [place] [address] [place] [address] [phone] Social History Tobacco Use Types Packs/Day Years Used Date Smoking Tobacco: Former Cigarettes Quit : 1993 Smokeless Tobacco: Never Alcohol Use Standard Drinks/Week Comments Yes 16 (1 standard drink = 0.6 oz pure alcoh ol) Alcohol Habits Answer Date Recorded How often do you have a drink containing 4 or more times a w [place] 10/05/2021 alcohol? How many drinks containing alcohol [...] 1 to 4 times per year 07/2021 sabianism services? Do you belong to any clubs or Yes 10/05/2021 organizations such as yazidism groups, unions, fraternal or athletic groups, or school groups? How often do you attend meetings of the More than 4 times [facility] year 10/05/2021 clubs or organizations [...] Visit Family Medicine Leslie Gonzalez M.D. [address] [place] [phone] (Wo rk) documented as of this encounter Visit Diagnoses Not on filedocumented in this encounter Care Teams Imaging Administrator Relationship Specialty Start Date End Date Merrill Bee P.A.-C. PCP - General 11/18/16 [address] [place] [phone] documented as of this encounter
--- OUTSIDE RECORDS SUMMARY | 2022-03-22 15:48 | XMS_ITS | Encounter Summary ---
:1950 Author Organization [facility] Address [address] [place] [address] Care Team Providers Name Role Phone Merrill Bee P.A.-C. Primary Care Provider [phone] Reason for Referral Outpatient (Routine) - Closed Specialty Diagnoses / Procedures Referred By Contact Refer red To Contact Merrill Bee P. A.-C. [address] [place] [phone] Referral ID Status Reason Start Date Expiration Date Visits Requ ested Visits Authorized [id number] Closed 03/18/2017 09/14/2017 1 1 Encounter Details Date Type Department Care Team Description 03/18/2017 Orders Only Department of Merrill Self [facility], in [address] [address] [place], [place] [phone] (Work) [phone] Social History Tobacco Use Types Packs/Day Years Used Date Smoking Tobacco: Former Alcohol Habits Answer Date Recorded How often do you have a drink containing 4 or more times a w [place] 10/05/2021 alcohol? How many drinks containing alcohol [...] Visit Family Medicine Leslie Gonzalez M.D. [address] [place] [phone] (Wo rk) Scheduled Referrals Name Type Priority Associated Diagnoses Order S [facility] Family Medicine Outpatient Referral Routine Expec marc: office visit 11/11/2017 (clinic) (Approximate), Expires: 11/15/2022 documented as of this encounter Results (ABNORMAL) Lipid Panel (11/09/2017 7:36 AM CDT) P athologist Signature Cholesterol, 214 (H) mg/dL 11/09/2017 [facility] Total 11:[address] [facility] [place] LAB Comment: ----REFERENCE VALUE---- Desirable: < 200 Borderline high: 200 - 239 High: > or = 240 Triglycerides 100 mg/dL 11/09/2017 11:12 AM CDT [facility] [place] LAB Comment: ----REFERENCE VALUE---- Normal: <150 Borderline high: 150-199 High: 200-499 Very high: > or =500 Cholesterol, HDL, S 98 >=50 mg/dL 11/09/2017 11:12 AM CDT [facility] [place] LAB Calculated LDL 96 mg/dL 11/09/2017 11:12 AM CDT [facility] [place] LAB Comment: ----REFERENCE VALUE---- Desirable: <100 Above Desirable: 100-129 Borderline high: 130-159 High: 160-189 Very high: > or =190 Cholesterol, Non-HDL, 116 mg/dL 11/09/2017 11:12 A M CDT [facility] [place] B Comment: ----REFERENCE VALUE---- Desirable: <130 Above Desirable: 130-159 Borderline high: 160-189 High: 190-219 Very high: > or =220 Specimen Anatomical Collection Method Collection Time Receive d Time (Source) Location / / Volume Laterality Blood 11/09/2017 7:36 AM 8 CDT 10:54 AM CDT Merrill Bee P.A.-C. LAB BLOOD ADD-ON Performing Organization Address City/State/ZIP Code Phon e Number [facility] [employer] [address] [place] [address] LAB (ABNORMAL) CMP (Comprehensive Metabolic Panel) (11/09/2017 7:36 AM CDT) P athologist Signature Potassium, S 4.9 3.6 - 5.2 11/09/2017 [facility] mmol/L 11:12 AM CDT [facility] Sodium, S 141 135 - 145 11/09/2017 [facility] mmol/L 11:12 AM T [facility] Chloride, S 101 98 - 107 11/09/2017 [facility] mmol/L 11:12 AM T [facility] Bicarbonate, S 30 (H) 22 - 29 11/09/2017 [facility] mmol/L 11:12 AM [facility] Anion Gap 10 7 - 15 11/09/2017 [facility] 11:12 AM [facility] [place] [facility] BUN (Blood Urea 16 6 - 21 11/09/2017 [facility] Nitrogen), S mg/dL 11:12 AM [facility] [place] [facility] Creatinine 0.74 0.59 - 11/09/2017 [facility] 1.04 mg/dL 11:12 AM [facility] [place] [facility] eGFR-Non 83 >=60 11/09/2017 [facility] Black/ mL/min/BSA 11:12 AM [facility] [place] [facility] Comment: ----ADDITIONAL INFORMATION---- Estimated GFR calculated using the 2009 CKD_EPI creatinine equation. eGFR-Black/ >90 >=60 mL/min/BSA 2017 11:12 [facility] [place] LAB Comment: ----ADDITIONAL INFORMATION---- Estimated GFR calculated using the 2009 CKD_EPI creatinine equation. Calcium, Total, S 9.5 8.8 - 10.2 11/09/2017 11:12 AM [facility] mg/dL [facility] [place] [facility] Glucose, S 114 70 - 140 mg/dL 11/09/2017 11:12 AM [facility] [place] [facility] Protein, Total, S 7.0 6.3 - 7.9 g/dL 11/09/2017 11:12 AM [facility] [place] [facility] Albumin, S 4.9 3.5 - 5.0 g/dL 11/09/2017 11:12 AM [facility] [place] [facility] Aspartate Aminotransferase 33 8 - 43 U/L 11/09/2017 1 1:12 AM [facility] Alkaline Phosphatase, S 83 55 - 142 U/L 11/09/2017 11 :12 AM [facility] [place] [facility] Alanine Aminotransferase 31 7 - 45 U/L 11/09/2017 11: 12 AM [facility] S [facility] [place] [facility] Bilirubin, Total, S 0.6 <=1.2 mg/dL 11/09/2017 11:12 A M [facility] [place] LAB Specimen Anatomical Collection Method Collection Time Receive d Time (Source) Location / / Volume Laterality Blood 11/09/2017 7:36 AM 8 CDT 10:54 AM CDT Merrill Bee P.A.-C. LAB BLOOD ADD-ON Performing Organization Address City/State/ZIP Code Phon e Number [facility] [place] [address] [place] [address] LAB Hemoglobin A1c (11/09/2017 7:36 AM CDT) P athologist Signature Hemoglobin A1c, 5.3 4.2 - 5.6 11/09/2017 [facility] B % 11:[address] [facility] LAB Specimen Anatomical Collection Method Collection Time Receive d Time (Source) Location / / Volume Laterality Blood 11/09/2017 7:36 AM 8 CDT 10:55 AM CDT Merrill Bee P.A.-C. LAB BLOOD ADD-ON Performing Organization Address City/State/ZIP Code Phon e Number [facility] [place] [address] [place] [address] LAB documented in this encounter Visit Diagnoses Diagnosis Cardiac Vascular Disease Screening documented in this encounter Care Teams Gold Cutter Relationship Specialty Start Date End Date Merrill Bee P.A.-C. PCP - General 11/18/16 [address] [place] [phone] documented as of this encounter
--- OUTSIDE RECORDS SUMMARY | 2022-03-22 15:48 | XMS_ITS | Encounter Summary ---
:1950 Author Organization [facility] Address [address] [place] [address] Care Team Providers Name Role Phone Merrill Bee P.A.-C. Primary Care Provider [phone] Reason for Visit Reason Comments Blood Pressure Check Appointment Request (Routine) - Closed Specialty Diagnoses / Procedures Referred By Contact Refer red To Contact Family Medicine Referral ID Status Reason Start Date Expiration Date Visits Requ ested Visits Authorized [id number] Closed 03/24/2018 03/24/2019 1 Encounter Details Date Type Department Care Team Description 03/24/2018 Nurse Only Department of Family [facility] Pressure Check Medicine, [facility], in [facility] [address] [address] [place] [address] Social History Tobacco Use Types Packs/Day Years Used Date Smoking Tobacco: Former Cigarettes Quit : 1993 Smokeless Tobacco: Never Alcohol Use Standard Drinks/Week Comments Yes 16 (1 standard drink = 0.6 oz pure alcoh ol) Alcohol Habits Answer Date Recorded How often do you have a drink containing 4 or more times a w [place] 10/05/2021 alcohol? How many drinks containing alcohol [...] or slept in a penitentiary (including now)? Sex Assigned at Date Recorded Female 03/07/2018 9:31 AM CDT documented as of this encounter Last Filed Vital Signs Vital Sign Reading Time Taken Comments Blood Pressure 130/71 03/24/2018 10:55 AM CDT Pulse 87 03/24/2018 10:55 AM CDT Temperature - - Respiratory Rate - - Oxygen Saturation - - Inhaled Oxygen Concentration - - Weight - - Height - - Body Mass Index - - documented in this encounter Plan of Treatment Upcoming Encounters Date Type Specialty Care Team Description 03/25/2022 Office Visit Family Medicine Leslie Gonzalez M.D. [address] [place] [phone] (Wo rk) documented as of this encounter Visit Diagnoses Not on filedocumented in this encounter Care Teams Mobile Marketing Manager Relationship Specialty Start Date End Date Merrill Bee P.A.-C. PCP - General 11/18/[address] [place] [phone] documented as of this encounter
--- OUTSIDE RECORDS SUMMARY | 2022-03-22 15:48 | XMS_ITS | Encounter Summary ---
:1950 Author Organization [facility] Address [address] [place] [address] Care Team Providers Name Role Phone Merrill Bee P.A.-C. Primary Care Provider [phone] Reason for Visit Reason Comments Med Refill Encounter Details Date Type Department Care Team Description 12/05/2017 Refill Department of Family Medicine, Merrill Rodriguez P.A.-C. Med Refill [facility], in [address] [place] [phone] [place] [address] [place] [address] [phone] Social History Tobacco Use Types Packs/Day Years Used Date Smoking Tobacco: Former Cigarettes Quit : 1993 Smokeless Tobacco: Never Alcohol Use Standard Drinks/Week Comments Yes 16 (1 standard drink = 0.6 oz pure alcoh ol) Alcohol Habits Answer Date Recorded How often do you have a drink containing 4 or more times a w elim [place] 10/05/2021 alcohol? How many drinks containing [...] 1 to 4 times per year 07/2021 episcopal services? Do you belong to any clubs or Yes 10/05/2021 organizations such as zoroastrian groups, unions, fraternal or athletic groups, or school groups? How often do you attend meetings of the More than 4 times [facility] year 10/05/2021 clubs or organizations you [...] Office Visit Family Medicine Leslie Gonzalez M.D. [address] [place] [phone] (Wo rk) documented as of this encounter Visit Diagnoses Not on filedocumented in this encounter Care Teams Yarn Dyer Relationship Specialty Start Date End Date Merrill Bee P.A.-C. PCP - General 11/18/16 [address] [place] [phone] documented as of this encounter
--- OUTSIDE RECORDS SUMMARY | 2022-03-22 15:49 | XMS_ITS | Encounter Summary ---
:1950 Author Organization [facility] Address [address] [place] [address] Care Team Providers Name Role Phone Unavailable Primary Care Provider Unavailable Encounter Details Date Type Department Care Team Description 11/04/2015 Hospital Encounter [facility] Merrill Knott P.A.-C. [address] [place] [phone] (Wo rk) Social History Tobacco Use Types Packs/Day Years Used Date Smoking Tobacco: Never Assessed Alcohol Habits Answer Date Recorded How often do you have a drink containing 4 or more times a w [facility] 10/05/2021 alcohol? How many drinks containing alcohol [...] or slept in a [facility] (including now)? Sex Assigned at Date Recorded Female 03/07/2018 9:31 AM CDT documented as of this encounter Last Filed Vital Signs Vital Sign Reading Time Taken Comments Blood Pressure - - Pulse - - Temperature - - Respiratory Rate - - Oxygen Saturation - - Inhaled Oxygen Concentration - - Weight - - Height 170 cm (5' 6.93) 11/04/2015 8:23 AM CDT Body Mass Index - - documented in this encounter Medications at Time of Discharge Medication Sig Dispensed Refills Start Date End Date B complex-vitamin Take 1 capsule by 0 10/22/2015 (for_SUPER B-50) capsule mouth daily. CALCIUM CARBONATE/VITAMIN Take by mouth 2 0 01/27 D3 (CALCIUM 600 WITH (two) times a day. VITAMIN D3 ORAL) DOCOSAHEXANOIC ACID/EPA daily. 0 12/13/2012 (FISH OIL ORAL) GLUCOSAMINE/CHONDROITIN daily. 0 10/05/2010 SULF A (GLUCOSAMINE-CHONDROITIN ORAL) latanoprost (for_XALATAN) Administer 1 drop 0 0.005 % ophthalmic into both eyes at solution bedtime. VIT C/VIT Take 1 tablet by 0 10/22/2015 E/LUTEIN/MIN/OMEGA-3 mouth daily. (OCUVITE ORAL) acetaminophen (TYLENOL Take by mouth 3 0 10/06/19 11 06/23/2020 EXTRA STRENGTH) 500 mg (three) times a day. tablet Bifidobacterium infantis Take 1 capsule by 0 12/0506/30/2020 (ALIGN) 4 mg capsule mouth daily. BILBERRY ORAL bilberry See 0 04/09/2013 0 Instructions, Takes 1 cap daily MULTIVITAMIN ORAL daily. 0 01/27/2010 021 naproxen sodium (ALEVE) Take 2 tablets by 0 10/0511/18/2017 220 mg tablet mouth every 8 (eight) hours as needed. sennosides (SENNA) 8.6 mg Take 1 tablet by 0 04/0711/18/2017 tablet mouth 2 (two) times a day as needed. documented as of this encounter Plan of Treatment Upcoming Encounters Date Type Specialty Care Team Description 03/25/2022 Office Visit Family Medicine Leslie Gonzalez M.D. [address] [place] [address] [place] [phone] (Wo rk) documented as of this encounter Procedures Procedure Name Priority Date/Time Associated Diagnosis Comme nts BI BREAST SCREENING Routine 11/04/2015 8:32 AM Re sults for this BILATERAL CDT procedure are i n the results section. documented in this encounter Results BI Breast Screening Bilateral (11/04/2015 8:32 AM CDT) Anatomical Region Laterality Modality Breast Bilateral Mammography Specimen (Source) Anatomical Collection Method Collection Time Re ceived Time Location / / Volume Laterality 11/04/2015 8:32 AM CDT Addenda Addendum by Provider, Tammy Benz 11/04/2015 8:32 AM CDT RAD^^^OW [facility] Mammo Screening w ??CADD 11/04/2015 08:32:22 Impressions 11/05/2015 7:23 AM CDT No mammographic findings for malignancy in either breast. Recommendations: ??I recommend a follow- up mammogram in 1 year, self breast exams at least once per month and clinical breast exam at least once per year. ??Of note, benign f indings should not deter biopsy in the setting of a palpable abno rmality. ??The false negative rate of mammography is approximately 10% . CODE: 1-NEGATIVE Appropriate letter sent. Full field digital mammography is used a nd Computer Aided Detection is performed on the digital mammogram im ages. Narrative 11/05/2015 7:23 AM CDT EXAM: [facility] Mammo Screening w/ CADD INDICATION: screening COMPARISON: 11/01/2014, 10/23/2013, 01/13/20 12, 01/07/2011, 12/09/2009, 11/28/1999 and FINDINGS: Heterogeneously dense breast p arenchyma bilaterally. Breast density diminishes mammographic s ensitivity for detection of malignancy. Procedure Note Martinez Bernard M.D. / Provider, Denise ram M.D. - 10/08/2016 EXAM: [facility] Mammo Screening w/ CADD INDICATION: screening COMPARISON: 11/01/2014, 10/23/2013, 01/13/20 12, 01/07/2011, 12/09/2009, 11/28/1999 and FINDINGS: Heterogeneously dense breast p arenchyma bilaterally. Breast density diminishes mammographic s ensitivity for detection of malignancy. IMPRESSION: No mammographic findings for malignancy in either breast. Recommendations: I recommend a follow-up mammogram in 1 year, self breast exams at least once per month and clinical breast exam at least once per year. Of note, benign fin dings should not deter biopsy in the setting of a palpable abno rmality. The false negative rate of mammography is approximately 10% . CODE: 1-NEGATIVE Appropriate letter sent. Full field digital mammography is used a nd Computer Aided Detection is performed on the digital mammogram im ages. Toshia Hernandez R.T.(R), R.T.(R)(M) IMG BI PROCEDURES documented in this encounter Visit Diagnoses Not on filedocumented in this encounter
--- OUTSIDE RECORDS SUMMARY | 2022-03-22 15:49 | XMS_ITS | Encounter Summary ---
:1950 Author Organization [facility] Address [address] [place] [address] Care Team Providers Name Role Phone Unavailable Primary Care Provider Unavailable Encounter Details Date Type Department Care Team Description 10/29/2015 Hospital Encounter HX NO MAPPING Salvador Bee P.A.-C. [address] [place] [phone] (Wo rk) Social History Tobacco Use Types Packs/Day Years Used Date Smoking Tobacco: Never Assessed Alcohol Habits Answer Date Recorded How often do you have a drink containing 4 or more times a w [place] 10/05/2021 alcohol? How many drinks containing alcohol [...] or relatives? How often do you attend orthodoxy or 1 to 4 times per year 07/2021 yazidism services? Do you belong to any clubs or Yes 10/05/2021 organizations such as orthodoxy groups, unions, fraternal or athletic groups, or [...] or slept in a residential (including now)? Sex Assigned at Date Recorded [...] as needed. documented as of this encounter Miscellaneous Notes Miscellaneous - Conversion, Historical Provider Ser - 10/29/2015 11:59 PM CDT Coding Summary-Paper Based CODING DATE: 11/07/2015 FINAL [facility] STATUS: * Discharged to Home or Self Care PAYOR: Medicare Advantage ADMIT DX: REASON FOR VISIT DX: FINAL DX: PRINCIPAL: L82.1 Other seborrheic keratosis SECONDARY: PROCEDURES DOCTOR NAME DATE NOTE: The code number assigned matches the documented diagnosis and / or procedure in the patient's chart. However, the narrative phrase printed from the coding software may appear abbreviated, or result in slightly different terminology. Coded By: MAYCO RUANO Date Saved: 11/07/2015 01:48 pm Source: [employer] Document Id: [id number] documented in this encounter Plan of Treatment Upcoming Encounters Date Type Specialty Care Team Description 03/25/2022 Office Visit Family Medicine Leslie Gonzalez M.D. [address] [place] [phone] (Wo rk) documented as of this encounter Visit Diagnoses Not on filedocumented in this encounter
--- OUTSIDE RECORDS SUMMARY | 2022-03-22 15:49 | XMS_ITS | Encounter Summary ---
:1950 Author Organization [facility] Address [address] [place] [address] Care Team Providers Name Role Phone Unavailable Primary Care Provider Unavailable Encounter Details Date Type Department Care Team Description 10/22/2015 Hospital Encounter HX [facility] Jame Bee P.A.-C. [address] [place] [phone] (Wo rk) Social History Tobacco Use Types Packs/Day Years Used Date Smoking Tobacco: Never Assessed Alcohol Habits Answer Date Recorded How often do you have a drink containing 4 or more times a w jackson 10/05/2021 alcohol? How many drinks containing alcohol [...] or relatives? How often do you attend yazdanism or 1 to 4 times per year 07/2021 evangelical services? Do you belong to any clubs or Yes 10/05/2021 organizations such as yazdanism groups, unions, fraternal or athletic groups, or [...] or slept in a intermediate (including now)? Sex Assigned at Date Recorded Female 03/07/2018 9:31 AM CDT documented as of this encounter Last Filed Vital Signs Vital Sign Reading Time Taken Comments Blood Pressure 150/70 10/22/2015 8:14 AM CDT Pulse 80 10/22/2015 8:05 AM CDT Temperature - - Respiratory Rate 14 10/22/2015 8:05 AM CDT Oxygen Saturation - - Inhaled Oxygen Concentration - - Weight 87 kg (191 lb 12.8 oz) 10/22/2015 8:05 AM CDT Height 170 cm (5' 6.93) 10/22/2015 8:14 AM CDT Body Mass Index 30.1 10/22/2015 8:05 AM CDT documented in this encounter Medications [...] documented as of this encounter Progress Notes Jostin Bee P.A.-C. - 10/22/2015 7:50 AM CDT [id number] CHIEF COMPLAINT/REASON FOR VISIT Review of her multiple medical problems. HISTORY OF PRESENT ILLNESS Steph is a very pleasant 65-year-old female who comes in today to review her medical problems. In general, she has been doing okay. She has a cough that has bothered her now for a couple months and unfortunately it has been quite persistent. She has tried an antihistamine without much benefit. She doeshave some esophageal reflux and we had switched her from omeprazole to Zantac and it is not as well controlled but it is okay. She says if she watches what she eats she seems to do okay and she will try to continue on the Zantac. She also takes a regular-strength aspirin on a daily basis which could contribute to some of her esophageal symptoms. Her coughing has not responded with antihistamines. It has been frustrating for her. She would like to try something to see if she can get that better. It does not really keep her up at night. It is mostly during the daytime. She admits she also has a runnynose and some nasal congestion. She has hyperlipidemia. She is on Lipitor and doing well. We rechecked her labs and this is doing okay with the exception of some elevated triglycerides. She has a mole on her chest and a few on her neck that she would like me look at. They aggravate her and rub with her bra strap and also with her necklace. She would like to do something with them. I reviewed the restof her past medical history in the electronic medical record including her family history and her medical history. SYSTEMS REVIEW Pertinent positives noted in the HPI. VITAL SIGNS Noted in the EMR. PHYSICAL EXAMINATION GENERAL: She appears in no acute distress. ENT: TMs no erythema. Throat no erythema. NECK: No lymphadenopathy. No thyroid masses. HEART: Regular rate and rhythm. No murmurs. LUNGS: Clear to auscultation. ABDOMEN: Soft and mostly nontender to palpation. There is a little bit of discomfort to deep palpation in the epigastric area. BREASTS: Symmetrical. No mass appreciated. No axillary lymphadenopathy noted. LOWER EXTREMITIES: Without edema. PERIPHERAL VASCULAR: Radial pulses palpable and symmetrical. SKIN: She has multiple nevi. A few of them are slightly raised. There is 1 underneath her left bra strap that is really aggravated. This one likely should be removed. It does not particularly seem concerning for cancer but more so is symptomatic from the aggravation from her bra strap. IMPRESSION/REPORT/PLAN 1. Cough. This is multifactorial. I think it could be either postnasal drip from her allergies or itcould be esophageal reflux. We are going to have her try an antihistamine. If that does not help I am going to have her try some Flonase to see if that helps alleviate her symptoms. If it does not get better we could consider Singulair or we could put her back on the omeprazole to see if the esophageal reflux is the culprit. We are going to work through this stepwise and she will let us know if it does not get better. 2. Esophageal reflux. This has been frustrating for her. I am going to switch her from her regular aspirin to a coated aspirin and see if this makes a difference for her. She will continue on the Zantac and try to avoid spicy foods as this seems to be her biggest trigger. 3. Hyperlipidemia. Will continue her on Lipitor brought. 4. Nevus. She is going to come in to have this removed in a week or so. 5. Hypertension. Her blood pressure is up today. I rechecked and it was continuously elevated. It previously was not an issue. She has not had any change in her diet that has been significant. I am going to have her come in and get this rechecked when we see her for her nevus. If it is still elevated we may have to consider treating it. She is in agreement with this plan. If there are any further questions or any problems she will let us know. Jostin Bee PA-C/kyleigh Electronically Signed By: JOSTIN BEE PA-C On: 10/22/2015 12:24 PM Source: [facility] MHSDOLBEYNONRADSYS Document Id: [id number] documented in this encounter Miscellaneous Notes Miscellaneous - Jostin Bee P.A.-C. - 10/22/2015 9:50 AM CDT Ambulatory Patient Summary [place] [id number] [facility] [place] [id number] Visit Information Name: STEPH SIMMONS [facility] Number: [id number] Current Date: 10/22/2015 09:50:11 Physicians Attending Provider: JOSTIN BEE PA-C Primary Care Provider: JOSTIN BEE PA-C STEPH SIMMONS has been given the [...] (Calcium 600+D) Oral, two times a day fluticasone nasal (Flonase 50 mcg/inh nasal spray) 2 [place](s), Nostrils(Both), once a day [facility] [address] [place] [id number] glucosamine-chondroitin (glucosamine-chondroitin) once a day latanoprost ophthalmic [...] 2xDay / i capsule twice a day. ranitidine (Zantac 300 oral tablet) 1 Tablet(s), Oral, once a day (at bedtime) senna (senna 8.6 mg oral tablet) 1 Tablet(s), Oral, two times a day as needed for constipation Stop Taking the Following Medications: Medication list as of 10-22-15 09:50 Attention: If you have any medications at home that are not on this list, DO NOT take them until youcontact your provider for clarification. Give a copy of your medication list to your primary care provider. Update your medication list any time medications or doses are changed and carry your medication list at all times in case of emergency. Electronically Signed By: JOSTIN BEE PA-C Signed On:22-OCT-2015 09:50:07 Your Allergies & Intolerances Substance Reaction Symptoms [...] Your Upcoming Appointments Date Time Location Provider 10/29/2015 09:15 [facility] Oliv[facility] 11/04/2015 08:30 [facility] Room 1 Attention: Contact your local Clinic if further [...] if you dont have one. Go to [email or web address] and click on Create Your Account. Then, follow the directions to complete the online form. Youll be asked for your [facility] number which you can find at the top of this document. Your Goals/Additional instructions: Source: [facility] POWERCHART Document Id: [id number] Miscellaneous - Jostin Bee P.A.-C. - 10/22/2015 9:50 AM CDT Ambulatory Discharge Medication List [address] [id number] Visit Information Name: STEPH SIMMONS [facility] Number: [id number] Visit Date: 10/22/2015 09:50:10 Attending Provider: JOSTIN BEE PA-C Primary Care Provider: JOSTIN BEE PA-C STEPH SIMMONS has been given the [...] (Calcium 600+D) Oral, two times a day fluticasone nasal (Flonase 50 mcg/inh nasal spray) 2 [place](s), Nostrils(Both), once a day [facility] [place] [facility] [address] [place], [place] [phone] glucosamine-chondroitin (glucosamine-chondroitin) once a day latanoprost ophthalmic [...] 2xDay / i capsule twice a day. ranitidine (Zantac 300 oral tablet) 1 Tablet(s), Oral, once a day (at bedtime) senna (senna 8.6 mg oral tablet) 1 Tablet(s), Oral, two times a day as needed for constipation Stop Taking the Following Medications: Medication list as of 10-22-15 09:50 Attention: If you have any medications at home that are not on this list, DO NOT take them until youcontact your provider for clarification. Give a copy of your medication list to your primary care provider. Update your medication list any time medications or doses are changed and carry your medication list at all times in case of emergency. Electronically Signed By: JOSTIN BEE PA-C Signed On:22-OCT-2015 09:50:07 Additional Information: Source: [facility] POWERCHART Document Id: [id number] Miscellaneous - Benoit Roper, L.P.N. - 10/22/2015 8:14 AM CDT Ambulatory Vitals Height Weight Ambulatory Vitals Height Weight Entered On: 10/22/2015 8:14 CDT Performed On: 10/22/2015 8:14 CDT by BENOIT ROPER LPN Vitals/Ht/Wt Systolic Blood Pressure : 150 mmHg (HI) Diastolic Blood Pressure : 70 mmHg NIBP Mean : 97 mmHg BP Location : Left upper extremity Blood Pressure Cuff Size : Large Height : 170 cm(Converted to: 5 ft 7 inch(es), 67 inch(es)) BENOIT ROPER LPN - 10/22/2015 8:14 CDT Source: [employer] [facility] [employer] Document Id: [id number] CDT!8 Miscellaneous - Benoit Roper L.P.N. - 10/22/2015 8:12 AM CDT Health Assessment Health Assessment Entered On: 10/22/2015 8:14 CDT Performed On: 10/22/2015 8:12 CDT by BENOIT ROPER LPN Health Assessment Complete Health Assessment Complete or Modified : Annual Health Assessment Annual Health Assessment Completed : Yes BENOIT ROPER LPN - 10/22/2015 8:12 CDT Nutrition Nutrition Risk Factors by History Adult : None BENOIT ROPER LPN - 10/22/2015 8:12 CDT Functional Current Daily Living Assistance : None BENOIT ROPER LPN - 10/22/2015 8:12 CDT Dependent Habits Exposure to Tobacco Smoke : Other: quit 03/1994 Smoking Status : Former smoker Tobacco 2A : Yes Tobacco Use/Currently Using : No Tobacco Use/Last 30 Days : No Tobacco Use/Last 12 months : No Tobacco Last Use/Month : March Tobacco Last Use/Year : 1993 BENOIT ROPER LPN - 10/22/2015 8:12 CDT Caffeine Use Grid Caffeine Use : Current Type : Chocolate, Soft drinks, Tea Frequency : Occasionally Last Use : 09/18/2015 BENOIT ROPER LPN - 10/22/2015 8:12 CDT Alcohol Use : No BENOIT ROPER LPN - 10/22/2015 8:12 CDT Recreational Drug Use Grid Drug Use : None BENOIT ROPER LPN - 10/22/2015 8:12 CDT Psychosocial Domestic Abuse Concerns : None Behavioral Health Screen/Safety Assmt : No Religion Preference : Unknown BENOIT ROPER LPN - 10/22/2015 8:12 CDT Advance Directive Advanced Directives : Yes Advance Directive Type : Living will, Health care power of deputy commonwealth's attorney Advance Directive Location : Other: its here BENOIT ROPER LPN - 10/22/2015 8:12 CDT Educ Needs Learning Style Preference Adult Grid Patient : None Family : None BENOIT ROPER LPN - 10/22/2015 8:12 CDT [facility] Document Id: [id number] CDT!39 Miscellaneous - Benoit Roper, L.P.N. 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 Intake/History Entered On: 10/22/2015 8:12 CDT Performed On: 10/22/2015 8:05 CDT by BENOIT ROPER LPN Intake Chief Complaint : physical coughing continues for over a month tinnitis moles sharp pain L armpit at times Temperature Core : 36.8 DegC(Converted to: 98.2 DegF) Peripheral Pulse Rate : 80 /min Respiratory Rate : 14 /min Systolic Blood Pressure : 144 mmHg (HI) Diastolic Blood Pressure : 74 mmHg NIBP Mean : 97 mmHg BP Location : Left upper extremity Blood Pressure Cuff Size : Large SpO2 : 99 % Height : 170 cm(Converted to: 5 ft 7 inch(es), 67 inch(es)) Actual Weight : 87 kg(Converted to: 191 lb 13 oz) Weight Source : Standing scale Dosing Weight Clinic : 87 kg Clinic BSA : 2.03 Body Mass Index : 30.1 kg/m2 JIMMYMONETSOHAIL BENOIT Boyle CROZE CUTTER - 10/22/2015 8:05 CDT General Info Information Given By : Patient Languages : Setswana Is Patient Female and 13-50 no hysterectomy : No BENOIT ROPER LPN - 10/22/2015 8:05 CDT Subjective Pain Symptoms : Yes BENOIT ROPER LPN - 10/22/2015 8:05 CDT Pain Scale Pain Scale Verbal 0-10 : Open JIMMYMONETSOHAIL BENOIT Boyle LPN - 10/22/2015 8:05 CDT Pain Pain Assessment Grid Pain 1 Location : Foot JIMMYMONETBENOIT SAUCEDA LPN - 10/22/2015 8:05 CDT Dependent Habits Exposure to Tobacco Smoke : Other: quit 03/1994 Smoking Status : Former smoker Tobacco 2A : Yes Tobacco Use/Currently Using : No Tobacco Use/Last 30 Days : No Tobacco Use/Last 12 months : No Tobacco Last Use/Month : March Tobacco Last Use/Year : 1993 BENOIT ROPER LPN 10/22/2015 8:05 CDT Caffeine Use Grid Caffeine Use : Current Type : Chocolate, Soft drinks, Tea Frequency : Occasionally Last Use : 09/18/2015 BENOIT ROPER CROZE CUTTER - 10/22/2015 8:05 CDT Recreational Drug Use Grid Drug Use : None BENOIT ROPER LPN 10/22/2015 8:05 CDT Source: [facility] [employer] Document Id: [id number] CDT!48 documented in this encounter Plan of Treatment Upcoming Encounters Date Type Specialty Care Team Description 03/25/2022 Office Visit Family Medicine Leslie Gonzalez M.D. [address] [place] [address] [phone] (Wo rk) documented as of this encounter Visit Diagnoses Not on filedocumented in this encounter
--- OUTSIDE RECORDS SUMMARY | 2022-03-22 15:49 | XMS_ITS | Encounter Summary ---
:1950 Author Organization [facility] Address [address] [place] [address] Care Team Providers Name Role Phone Unavailable Primary Care Provider Unavailable Encounter Details Date Type Department Care Team Description 09/18/2015 Hospital Encounter [facility]X [facility] Jame Bee P.A.-C. [address] [place] [phone] (Wo rk) Social History Tobacco Use Types Packs/Day Years Used Date Smoking Tobacco: Never Assessed Alcohol Habits Answer Date Recorded How often do you have a drink containing 4 or more times a w [place] 10/05/2021 alcohol? How many drinks containing [...] 1 to 4 times per year 07/2021 [employer] services? Do you belong to any clubs [...] slept in a nursing home (including now)? Sex Assigned at Date Recorded Female 03/07/2018 9:31 AM CDT documented as of this encounter Last Filed Vital Signs Vital Sign Reading Time Taken Comments Blood Pressure 138/78 09/18/2015 2:58 PM CDT Pulse 92 09/18/2015 2:58 PM CDT Temperature - - Respiratory Rate 16 09/18/2015 2:58 PM CDT Oxygen Saturation - - Inhaled Oxygen Concentration - - Weight 88.9 kg (195 lb 15.8 oz) 09/18/2015 2:58 PM CDT Height 168 cm (5' 6.14) 09/18/2015 2:58 PM CDT Body Mass Index 31.5 09/18/2015 2:58 PM CDT documented in this encounter Medications at Time of Discharge Medication Sig Dispensed Refills Start Date End Date CALCIUM CARBONATE/VITAMIN Take by mouth 2 0 01/27 D3 (CALCIUM 600 WITH (two) times a day. VITAMIN D3 ORAL) DOCOSAHEXANOIC ACID/EPA daily. 0 12/13/2012 (FISH OIL ORAL) GLUCOSAMINE/CHONDROITIN daily. 0 10/05/2010 SULF A (GLUCOSAMINE-CHONDROITIN ORAL) latanoprost (for_XALATAN) Administer 1 drop 0 0.005 % ophthalmic into both eyes at solution bedtime. acetaminophen (TYLENOL Take by mouth 3 0 [...] encounter Progress Notes Jostin Bee P.A.-C. - 09/18/2015 2:48 PM CDT [id number] REVISION HISTORY October 02, 2015, at 3:50 a.m. - Modification to impression/report/plan by Jostin Bee PA-C. CHIEF COMPLAINT/REASON FOR VISIT Cough. HISTORY OF PRESENT ILLNESS Mayra is a very pleasant 65-year-old female who has been coughing for the last 10 days. Her cough hasbeen somewhat productive. She does not seem to be getting better on her own. She is due for follow up of her lipids here in the near future. She also has had longstanding esophageal reflux, has been taking Protonix for many years. She is interested in possibly switching off to something else. PHYSICAL EXAMINATION VITAL SIGNS: Noted in the EMR. GENERAL: She appears in no acute distress. ENT: TMs no erythema. Throat no erythema. NECK: No lymphadenopathy. No thyroid masses. HEART: Regular rate and rhythm. No murmurs. LUNGS: Clear to auscultation. HEAD: Sinuses are mildly tender to percussion. IMPRESSION/REPORT/PLAN 1. Upper respiratory infection. This certainly seems viral. I think it should improve on its own butit has been almost 2 weeks. If it does not get better within the next 3 days I am going to treat with Zithromax, take a Z-Derek as directed. Otherwise will have her follow up as needed. 2. Hyperlipidemia. We will have her come in for fasting lipid panel in a month and I will see her atthat time. 3. Elevated fasting sugar. Will screen her for diabetes with a hemoglobin A1c and a metabolic panel.I will see her back in a month. 4. Esophageal reflux. She has been on Protonix for years. She would like to get off it so we are going to discontinue and try Zantac 300 mg at nighttime. She will let us know how she responds. I am going to see her back in 3 months. If there are questions or problems in the meantime, she will let us know. Total time spent today with the patient was 25 minutes, of which, 15 was in dekx-sf-elob coordination of care and counseling. Jostin Bee PA-C/kyleigh Electronically Signed By: JOSTIN BEE PA-C On: 09/19/2015 12:00 PM Jostin Bee PA-C/ana Electronically Signed By: JOSTIN BEE PA-C On: 09/19/2015 12:00 PM Co-Signed By: JOSTIN BEE PA-C On: 10/02/2015 04:34 PM Source: [facility] MHSDOLBEYNONRADSYS Document Id: [id number] documented in this encounter Miscellaneous Notes Miscellaneous - Jostin Bee P.A.-C. - 09/18/2015 4:21 PM CDT Ambulatory Patient Summary [address] [id number] Visit Information Name: MAYRA SIMMONS [facility] Number: [id number] Current Date: 09/18/2015 16:21:36 Physicians Attending Provider: JOSTIN BEE PA-C Primary Care Provider: JOSTIN BEE PA-C MAYRA SIMMONS has been given the following list [...] Tablet(s), Oral, once a day (at bedtime) Routed to [address] [id number] azithromycin (Zithromax Z-Derek 250 mg oral tablet) 2 tablets on day 1, then 1 tablet on days 2-5, Oral, as directed x 5 day(s) New Routed to [facility] bifidobacterium infantis (Align 4 mg oral capsule) 1 cap, Oral, once a day bilberry (bilberry) See Instructions Takes 1 cap daily calcium-vitamin D (Calcium 600+D) Oral, two times a day glucosamine-chondroitin (glucosamine-chondroitin) once a day latanoprost ophthalmic (latanoprost 0.005% ophthalmic solution) 1 Drops, Eyes(Both), once a day (at bedtime) Misc Prescription (Misc Prescription) 0.005 %, 1 drop, Eyes(Both), once a day multivitamin (multivitamin) once a day naproxen (Aleve 220 mg oral tablet) 2 Tablet(s), Oral, every 8 hours as needed for pain omega-3 polyunsaturated fatty acids (omega-3 polyunsaturated fatty acids 500 mg oral capsule) See Instructions 2 cap(s) PO 2xDay / i capsule twice a day. 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 Go to [email or web address] and click on Create Your Account. Then, follow the directions to complete the online form. Youll be asked for your [facility] number which you can find at the top of this document. Your Goals/Additional instructions: Source: [facility] POWERCHART Document Id: [id number] Miscellaneous - Jostin Bee P.A.-C. - 09/18/2015 4:21 PM CDT Ambulatory Discharge Medication List [address] [id number] Visit Information Name: MAYRA SIMMONS [facility] Number: [id number] Visit Date: 09/18/2015 16:21:34 Attending Provider: JOSTIN BEE PA-C Primary Care Provider: JOSTIN BEE PA-C MARLINEMAYRA FOSS has been given the following list of [...] Tablet(s), Oral, once a day (at bedtime) Routed to [address] [id number] azithromycin (Zithromax Z-Derek 250 mg oral tablet) 2 tablets on day 1, then 1 tablet on days 2-5, Oral, as directed x 5 day(s) New Routed to [facility] bifidobacterium infantis (Align 4 mg oral capsule) 1 cap, Oral, once a day bilberry (bilberry) See Instructions Takes 1 cap daily calcium-vitamin D (Calcium 600+D) Oral, two times a day glucosamine-chondroitin (glucosamine-chondroitin) once a day latanoprost ophthalmic (latanoprost 0.005% ophthalmic solution) 1 Drops, Eyes(Both), once a day (at bedtime) Misc Prescription (Misc Prescription) 0.005 %, 1 drop, Eyes(Both), once a day multivitamin (multivitamin) once a day naproxen (Aleve 220 mg oral tablet) 2 Tablet(s), Oral, every 8 hours as needed for pain omega-3 polyunsaturated fatty acids (omega-3 polyunsaturated fatty acids 500 mg oral capsule) See Instructions 2 cap(s) PO 2xDay / i capsule twice a day. ranitidine (Zantac 300 oral tablet) 1 Tablet(s), Oral, once a day (at bedtime) New Routed to [address] [id number] senna (senna 8.6 mg oral tablet) 1 Tablet(s), Oral, two times a day as needed for constipation Stop Taking the Following Medications: Medication list as of 09-18-15 16:21 Attention: If you have any medications at [...] Electronically Signed By: JOSTIN BEE PA-C Signed On:18-SEP-2015 16:21:26 Additional Information: Source: [facility] POWERCHART Document Id: [id number] Miscellaneous - Phyllis Huerta L.P.N. 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 Onset of Symptoms : 10 days Temperature Core : 37.0 DegC(Converted to: 98.6 DegF) PHYLLIS HUERTA LPN - 09/18/2015 14:58 CDT Peripheral Pulse Rate : 92 /min PHYLLIS HUERTA LPN - 09/18/2015 15:01 CDT Respiratory Rate : 16 /min Systolic Blood Pressure : 138 mmHg Diastolic Blood Pressure : 78 mmHg NIBP Mean : 98 mmHg BP Location : Right upper extremity Blood Pressure Cuff Size : Large SpO2 : 97 % Oxygen Therapy : Room air Height : 168 cm(Converted to: 5 ft 6 inch(es), 66 inch(es)) Actual Weight : 88.9 kg(Converted to: 196 lb 0 oz) Weight Source : Standing scale Dosing Weight Clinic : 88.9 kg Clinic BSA : 2.04 Body Mass Index : 31.5 kg/m2 PHYLLIS HUERTA LPN - 09/18/2015 14:58 CDT General Info Information Given By : Patient Preferred Communication Mode : Verbal Languages : Egyptian Is Patient Female and 13-50 no hysterectomy : No PHYLLIS HUERTA LPN - 09/18/2015 14:58 CDT Subjective Pain Symptoms : No PHYLLIS HUERTA LPN - 09/18/2015 14:58 CDT Dependent Habits Exposure to Tobacco Smoke : Other: quit 03/1994 Smoking Status : Former smoker Tobacco 2A : Yes Tobacco Use/Currently Using : No Tobacco Use/Last 30 Days : No Tobacco Use/Last 12 months : No Tobacco Last Use/Month : March Tobacco Last Use/Year : 1993 Alcohol Use : Yes PHYLLIS HUERTA LPN - 09/18/2015 14:58 CDT Caffeine Use Grid Caffeine Use : Current Type : Chocolate, Soft drinks, Tea Frequency : Occasionally Last Use : 09/18/2015 PHYLLIS HUERTA LPN - 09/18/2015 14:58 CDT Recreational Drug Use Grid Drug Use : None PHYLLIS HUERTA LPN - 09/18/2015 14:58 CDT Source: [employer] Document Id: [id number] CDT!3 documented in this encounter Plan of Treatment Upcoming Encounters Date Type Specialty Care Team Description 03/25/2022 Office Visit Family Medicine Leslie Gonzalez M.D. [address] [place] [address] [phone] (Wo rk) documented as of this encounter Visit Diagnoses Not on filedocumented in this encounter
--- OUTSIDE RECORDS SUMMARY | 2022-03-22 15:49 | XMS_ITS | Encounter Summary ---
:1950 Author Organization [facility] Address [address] [place] [address] Care Team Providers Name Role Phone Unavailable Primary Care Provider Unavailable Encounter Details Date Type Department Care Team Description 11/19/2015 Hospital Encounter HX [facility] Jame Bee P.A.-C. [address] [place] [phone] (Wo rk) Social History Tobacco Use Types Packs/Day Years Used Date Smoking Tobacco: Never Assessed Alcohol Habits Answer Date Recorded How often do you have a drink containing 4 or more times a w [place] 10/05/2021 alcohol? How many drinks containing alcohol [...] or slept in a retirement (including now)? Sex Assigned at Date Recorded Female 03/07/2018 9:31 AM CDT documented as of this encounter Last Filed Vital Signs Vital Sign Reading Time Taken Comments Blood Pressure 128/68 11/19/2015 10:56 AM CDT Pulse 64 11/19/2015 10:56 AM CDT Temperature - - Respiratory Rate 16 11/19/2015 10:56 AM CDT Oxygen Saturation - - Inhaled Oxygen Concentration - - Weight 90 kg (198 lb 6.6 oz) 11/19/2015 10:56 AM CDT Height 170 cm (5' 6.93) 11/19/2015 10:56 AM CDT Body Mass Index 31.14 11/19/2015 10:56 AM CDT documented in this encounter Medications [...] encounter Progress Notes Jostin Bee P.A.-C. - 11/19/2015 10:33 AM CDT [id number] CHIEF COMPLAINT/REASON FOR VISIT Cough. HISTORY OF PRESENT ILLNESS Steph is a very pleasant 65-year-old female who has a chronic cough. We have been working on this. Wehave adjusted her medications. She did not really think the Zyrtec and Flonase helped a whole lot but then she developed an upper respiratory infection with a productive cough over the last week or 2. VITAL SIGNS Noted in the EMR. PHYSICAL EXAMINATION GENERAL: She appears in no acute distress. ENT: TMs no erythema. Throat no erythema. Sinuses are tender to percussion. HEART: Regular rate and rhythm. No murmurs. LUNGS: Clear to auscultation. IMPRESSION/REPORT/PLAN Sinusitis. PLAN: I am going to treat with Zithromax. Take a Z-Derek as directed and push fluids. If her symptoms worsen I have completely resolve in 7 to 10 days she will let us know. She is going to try a nasal saline spray as a decongestant. If her chronic cough returns after this acute incident is better she will let us know. Otherwise I have her follow up as needed. Jostin Bee PA-C/kyleigh Electronically Signed By: JOSTIN BEE PA-C On: 11/19/2015 03:03 PM Source: [facility] MHSDOLBEYNONRADSYS Document Id: [id number] documented in this encounter Miscellaneous Notes Miscellaneous - Maritza Mcallister R.N. - 12/30/2015 10:59 AM CDT protonix Document Contains Addenda Addendum by JOSTIN BEE PA-C on December 31, 2015 17:56:09 CDT From: JOSTIN BEE PA-C To: [facility] Medication Refill; Sent: 12/31/2015 17:56:09 CDT Subject: RE: protonix done From: MARITZA MCALLISTER RN ([facility] Medication Refill) To: JOSTIN BEE PA-C; Sent: 12/30/2015 10:59:49 CDT Subject: protonix Caller is: ( ) Patient ( ) Mother ( ) Father ( ) Spouse ( ) Daughter ( ) Son ( kathleen/hank ) Pharmacy ( ) Other: Provider: [facility]: Name of Medications Needing Refill: protonix 40 mg Last Refill Date: 12/02/15 qty 60 Additional Information: 1 tab po BID; pt on ranitidine also...med not in EMR... 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 - 11/19/2015 11:25 AM CDT Ambulatory Patient Summary [address] [id number] Visit Information Name: STEPH SIMMONS [facility] Number: [id number] Current Date: 11/19/2015 11:25:00 Physicians Attending Provider: JOSTIN BEE PA-C Primary Care Provider: JOSTIN BEE PA-C ROSALBA STEPH MESSINA has been given the following list of [...] Tablet(s), Oral, once a day (at bedtime) azithromycin (Zithromax Z-Derek 250 mg oral tablet) 2 tablets on day 1, then 1 tablet on days 2-5, Oral, as directed x 5 day(s) New Routed to [address] [id number] bifidobacterium infantis (Align 4 mg oral capsule) 1 cap, Oral, once a day bilberry (bilberry) See Instructions Takes 1 cap daily calcium-vitamin D (Calcium 600+D) Oral, two times a day cetirizine (ZyrTEC) Oral, once a day fluticasone nasal (Flonase 50 mcg/inh nasal spray) 2 Rousseau(s), Nostrils(Both), once a day glucosamine-chondroitin (glucosamine-chondroitin) once a [...] the Following Medications: Medication list as of 11-19-15 11:25 Attention: If you have any medications at [...] Electronically Signed By: JOSTIN BEE PA-C Signed On:19-NOV-2015 11:24:55 Your Allergies & Intolerances Substance Reaction Symptoms [...] Your Upcoming Appointments Date Time Location Provider No Appointments found Attention: Contact your local Clinic if further [...] if you dont have one. Go to [email or web address] and click on Create Your Account. Then, follow the directions to complete the online form. Youll be asked for your [facility] number which you can find at the top of this document. Your Goals/Additional instructions: Source: [facility] POWERCHART Document Id: [id number] Miscellaneous - Jostin Bee P.A.-C. - 11/19/2015 11:24 AM CDT Ambulatory Discharge Medication List [place] [id number] [facility] [phone] Visit Information Name: STEPH SIMMONS [facility] Number: [id number] Visit Date: 11/19/2015 11:24:59 Attending Provider: JOSTIN BEE PA-C Primary Care [...] Tablet(s), Oral, once a day (at bedtime) azithromycin (Zithromax Z-Derek 250 mg oral tablet) 2 tablets on day 1, then 1 tablet on days 2-5, Oral, as directed x 5 day(s) New Routed to [address] [facility] [place] [phone] bifidobacterium infantis (Align 4 mg oral capsule) 1 cap, Oral, once a day bilberry (bilberry) See Instructions Takes 1 cap daily calcium-vitamin D (Calcium 600+D) Oral, two times a day cetirizine (ZyrTEC) Oral, once a day fluticasone nasal (Flonase 50 mcg/inh nasal spray) 2 Rousseau(s), Nostrils(Both), once a day glucosamine-chondroitin (glucosamine-chondroitin) once a [...] the Following Medications: Medication list as of 11-19-15 11:24 Attention: If you have any medications at [...] Electronically Signed By: JOSTIN BEE PA-C Signed On:19-NOV-2015 11:24:55 Additional Information: Source: [facility] POWERCHART Document Id: [id number] Miscellaneous - Benoit Roper LGiovanyPGiovanyN. 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 Entered On: 11/19/2015 11:00 CDT Performed On: 11/19/2015 10:56 CDT by BENOIT ROPER LPN Intake SpO2 : 96 % BENOIT ROPER LPN - 11/19/2015 11:01 CDT Chief Complaint : consistant cough and sore throat for over a week Temperature Core : 37.0 DegC(Converted to: 98.6 DegF) Peripheral Pulse Rate : 64 /min Respiratory Rate : 16 /min Systolic Blood Pressure : 128 mmHg Diastolic Blood Pressure : 68 mmHg NIBP Mean : 88 mmHg BP Location : Right upper extremity Blood Pressure Cuff Size : Large Height : 170 cm(Converted to: 5 ft 7 inch(es), 67 inch(es)) Actual Weight : 90 kg(Converted to: 198 lb 7 oz) Weight Source : Standing scale Dosing Weight Clinic : 90 kg Clinic BSA : 2.06 Body Mass Index : 31.14 kg/m2 BENOIT ROPER LPN - 11/19/2015 10:56 CDT General Info Information Given By : Patient Languages : Macedonian Is Patient Female and 13-50 no hysterectomy : No BENOIT ROPER LPN - 11/19/2015 10:56 CDT Subjective Pain Symptoms : Yes BENOIT ROPER LPN 11/19/2015 10:56 CDT Pain Scale Pain Scale Verbal 0-10 : Open BENOIT ROPER LPN 11/19/2015 10:56 CDT Pain Pain Assessment Grid Pain 1 Location : Throat BENOIT ROPER LPN - 11/19/2015 10:56 CDT Dependent Habits Exposure to Tobacco Smoke : Other: quit 03/1994 Smoking Status : Former smoker Tobacco 2A : Yes Tobacco Use/Currently Using : No Tobacco Use/Last 30 Days : No Tobacco Use/Last 12 months : No Tobacco Last Use/Month : March Tobacco Last Use/Year : 1993 BENOIT ROPER [facility] - 11/19/2015 10:56 CDT Caffeine Use Grid Caffeine Use : Current Type : Chocolate, Soft drinks, Tea Frequency : Occasionally Last Use : 09/18/2015 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 [address] [place] [address] [phone] (Wo rk) documented as of this encounter Visit Diagnoses Not on filedocumented in this encounter
--- OUTSIDE RECORDS SUMMARY | 2022-03-22 15:49 | XMS_ITS | Encounter Summary ---
:1950 Author Organization [facility] Address [address] [place] [address] Care Team Providers Name Role Phone Unavailable Primary Care Provider Unavailable Encounter Details Date Type Department Care Team Description 03/16/2016 Hospital Encounter HX [facility] Ken Dalton M.D. [address] [place] [address], [address] [place], [place] [phone] (Wo rk) Social History Tobacco Use Types Packs/Day Years Used Date Smoking Tobacco: Never Assessed Alcohol Habits Answer Date Recorded How often do you have a drink containing 4 or more times a w enterprise 10/05/2021 alcohol? How many drinks containing alcohol [...] or relatives? How often do you attend scientologist or 1 to 4 times per year 07/2021 samaritan services? Do you belong to any clubs or Yes 10/05/2021 organizations such as scientologist groups, unions, fraternal or athletic groups, or [...] Sign Reading Time Taken Comments Blood Pressure 128/76 03/16/2016 8:33 AM CDT Pulse - - Temperature - - Respiratory Rate - - Oxygen Saturation - - Inhaled Oxygen Concentration - - Weight 86.7 kg (191 lb 4 oz) 03/16/2016 8:33 AM CDT Height 170 cm (5' 6.93) 03/16/2016 8:33 AM CDT Body Mass Index 30.02 03/16/2016 8:33 AM CDT documented in this encounter Medications [...] (CETIRIZINE ORAL) MULTIVITAMIN ORAL daily. 0 01/27/2010 01/25/2 021 naproxen sodium (ALEVE) Take 2 tablets by 0 10/0511/18/2017 220 mg tablet mouth every 8 (eight) hours as needed. sennosides (SENNA) 8.6 mg Take 1 tablet by 0 04/0711/18/2017 tablet mouth 2 (two) times a day as needed. documented as of this encounter Progress Notes Charito Dalton M.D. - 03/16/2016 8:28 AM CDT [id number] CHIEF COMPLAINT/REASON FOR VISIT Low back pain, bilateral lower extremity pain and paresthesias, and bilateral knee pain. HISTORY OF PRESENT ILLNESS Ms. Simmons is a very pleasant 65-year-old female who returns today. I last saw her May 19, 2015. She reports that over the past few months she has had increasing pain again in the bilateral lower extremities and in her low back. She reports this is very similar to the pain she has experienced in the past. She describes pain that is located across her low back. That pain is typically worse withprolonged sitting or standing. However the majority of her pain is located in her bilateral lower extremities. She reports that pain is present when she is standing or walking. Also it is worse first thing in the morning when she when she first starts to move around. She estimates that she can walk approximately 2 blocks before the pain begins. This is very similar to what it has been in the past. This pain begins in the bilateral gluteal regions and radiates into the posterior thighs and typically stops at the level of the knee although occasionally it can radiate into the calves bilaterally. She denies any focal weakness in her lower extremities, change in her bowel or bladder habits, fevers or chills, or recent unintentional weight loss. She continues to describe numbness and tingling that is unchanged that involves her feet and extending just proximal to the ankles as well as her hands. She has continued to perform the exercises she was shown previously. Ms. Simmons has also been experiencing bilateral anterior knee pain if she sits for any prolonged period of time. She has not noted any swelling, warmth, or erythema about the knees. She denies any catching, locking, or buckling of the knees. PHYSICAL EXAMINATION GENERAL: Pleasant 65-year-old female, in no acute distress. GAIT: Normal emmanuel and stride. Toe and heel walking are normal. MUSCULOSKELETAL: Spine: Preserved lumbar spine range of motion. At the end range of extension she has pain across her low back radiating into her bilateral lower extremities. There is tenderness to palpation over the bilateral low lumbar paraspinals. NEUROLOGIC: Strength: All major muscle groups of the bilateral lower extremities have normal and symmetric muscle strength, bulk and tone. Reflexes: Patellar tendon 0/0, Achilles -2/-2. Straight leg raise causes pain in the low back bilaterally without any radiating pain. KNEES: There is no effusion, warmth, or erythema noted in either knee. Range of motion from 0 to 130degrees bilaterally. There is tenderness to palpation over the medial joint line on the left and about the medial and lateral patellar facets bilaterally. Negative Kenzie's, negative posterior drawer,negative Cyrus's and negative bounce home. Mildly positive patellar grind bilaterally. IMPRESSION/REPORT/PLAN 1. 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 2. Lumbar spinal stenosis. 3. Lumbar spondylosis. 4. Small-fiber peripheral neuropathy. 5. Bilateral knee pain. Ms. Simmons's neurologic examination is unchanged and she has no focal neurologic deficits on her examination today. The symptoms she is experiencing in her lower extremities are again most consistentwith pseudoclaudication and she has known marked central canal stenosis at L4-L5. Her bilateral kneepain is most consistent with patellofemoral pain syndrome. PLAN: 1. I do think it would be reasonable to repeat a left L5 transforaminal epidural corticosteroid injection as this helped Ms. Simmons so significantly in the past. I do not feel it is necessary to repeat her imaging at the current time as her symptoms are exactly the same as they have been since her last imaging in February 2014. However, if she were not to respond to the left L5 transforamina epidural corticosteroid injection, I think that it would be reasonable to consider repeating her lumbar spine MRI. 2. Ms. Simmons will continue to use her extra-strength Tylenol and Aleve as needed for discomfort as well as tramadol which she uses very intermittently and has only used 2 times since I last saw her in May. 3. We are going to proceed today with bilateral knee x-rays with Ms. Simmons's knee pain. 4. I will plan on being in contact with Ms. Simmons following her bilateral knee x-rays, as well as2 weeks following the left L5 transforaminal epidural corticosteroid injection, to assess her progress. She knows to be in contact with me prior to that time if she notes any worsening or worrisome symptoms which we went over in detail today. Ms. Simmons voiced agreement and understanding with this plan. Total time 30 minutes, counseling time greater than 15 minutes. Charito Dalton M.D./kyleigh Electronically Signed By: CHARITO DALTON MD On: 03/29/2016 10:19 AM Modified by and Electronically Signed by: CHARITO DALTON MD On: 03/29/2016 10:19 AM Source: [facility] MHSDOLBEYNONRADSYS Document Id: [id number] documented in this encounter Nursing Notes Sunshine Anglin L.PGiovanyN. - 03/17/2016 10:24 AM CDT xrays Patient notified of results. Electronically Signed By: SUNSHINE ANGLIN LPN On: 03/17/2016 10:24 AM Source: [facility] POWERCHART Document Id: [id number] documented in this encounter Miscellaneous Notes Telephone Encounter - Conversion, Historical Provider Ser - 04/23/2016 9:39 AM CST *Phone MessagePaige Dalton Document Contains Addenda Addendum by SUNSHINE ANGLIN LPN on April 26, 2016 09:35:31 DRYWALL HANGER FRAMER See reminder message. From: RICO YUAN ( [facility] Registered Nurse Cardiac Telemetry) To: Physical Medicine and Rehabilitation Staff; Sent: 04/23/2016 09:39:57 DRYWALL HANGER FRAMER Subject: *Phone MessagePaige Dalton Caller is: (x ) Patient ( ) Mother ( ) Father ( ) Spouse ( ) Daughter ( ) Son ( ) Pharmacy ( ) Other: Physician: Patient MRN #: Reason for Call: Patient called that she had an injection at the [facility] on 04/06/16 and was wondering about a follow up appointment. Patient stated she will send a Portal message as well. She is aware that Dr. Dalton is out today and back on Tuesday04/26/16. Please call her at [phone]. Message: Advice/Action: Source used: ( ) Verbalizes understanding of instructions ( ) Instructed to call back if symptoms worsen or do not resolve ( ) Refused to see provider ( ) Appointment Scheduled ( ) OK to leave message on voice mail ( ) Patient told to expect return call: ( ) today ( ) tomorrow ( ) next work day ( ) Patient's email ( ) Patient told physician out of office, will call upon return call on ( ) ( ) Patient told physician out of office, routed to other physician ( ) Other ( ) Call back telephone number ( ) Call back cell phone number ( ) Source: [facility] POWERCHART Document Id: [id number] Miscellaneous - Sunshine Anglin L.P.NGiovany - 03/17/2016 9:[address] Dalton Document Contains Addenda Addendum by SUNSHINE ANGLIN LPN on March 19, 2016 11:37:42 CDT Order faxed Addendum by NICHELLE MATHUR on March 19, 2016 11:26:41 CDT From: NICHELLE MATHUR ([facility] Electronic Security Technician/Radiology Outside [facility]) To: Physical Medicine and Rehabilitation Staff; Sent: 03/19/2016 11:26:41 CDT Subject: RE: Dr. Dalton No auth needed From: SUNSHINE ANGLIN LPN ( Physical Medicine and Rehabilitation Staff) To: [facility] Electronic Security Technician/Radiology [facility]; Sent: 03/17/2016 09:51:36 CDT Subject: Dr. Dalton Patient Referred to Provider or Facility: [facility]_ Ordering Provider: _Sha Appointment Date (if known): _ Imaging Service Ordered: (list CPT code or body part to be scanned) _ _ W/ Contrast _ W/O Contrast _ W/O Contrast followed by with _ _ CT/CTA _ MRI _ MRA _ PET _Nuclear Cardiology Study _x Other: (list): Left L5 transforaminal epidural Diagnosis (CPT code if Known): _ Injury Related _ Yes _x No If yes, date and type of injury: _ Source: [facility] POWERCHART Document Id: [id number] Electronically signed by Conversion, [facility] Film Vault Supervisor [id number] at 10/31/2016 9:15 AM CDT Miscellaneous - Charito Dalton M.D. - 03/16/2016 9:01 AM CDT Ambulatory Patient Summary [address] [id number] Visit Information Name: STEPH SIMMONS [facility] Number: [id number] Current Date: 03/16/2016 09:00:59 Physicians Attending Provider: CHARITO DALTON MD Primary [...] nasal (Flonase 50 mcg/inh nasal spray) 2 [place](s), Nostrils(Both), once a day glucosamine-chondroitin (glucosamine-chondroitin) once [...] tablet) 1 Tablet(s), Oral, once a day ranitidine (Zantac 300 oral tablet) 1 Tablet(s), Oral, once a day (at bedtime) senna (senna 8.6 mg oral tablet) 1 Tablet(s), Oral, two times a day as needed for constipation Stop Taking the Following Medications: Medication list as of 03-16-16 09:01 Attention: If you have any medications at [...] Electronically Signed By: CHARITO DALTON MD Signed On:16-MAR-2016 09:00:26 Your Allergies & Intolerances Substance Reaction Symptoms [...] online form. Youll be asked for your [facility] number which you can find at the top of this document. Your Goals/Additional instructions: Source: [facility] POWERCHART Document Id: [id number] Miscellaneous - Charito Dalton M.D. - 03/16/2016 9:00 AM CDT Ambulatory Discharge Medication List [address] [id number] Visit Information Name: STEPH SIMMONS [facility] Number: [id number] Current Date: 03/16/2016 09:00:58 Attending Provider: CHARITO DALTON MD Primary Care Provider: JOSTIN HERNANDEZ PA-C ROSALBA MONSTER has been given the following list of [...] nasal (Flonase 50 mcg/inh nasal spray) 2 [place](s), Nostrils(Both), once a day glucosamine-chondroitin (glucosamine-chondroitin) once [...] tablet) 1 Tablet(s), Oral, once a day ranitidine (Zantac 300 oral tablet) 1 Tablet(s), Oral, once a day (at bedtime) senna (senna 8.6 mg oral tablet) 1 Tablet(s), Oral, two times a day as needed for constipation Stop Taking the Following Medications: Medication list as of 03-16-16 09:00 Attention: If you have any medications at [...] Electronically Signed By: CHARITO DALTON MD Signed On:16-MAR-2016 09:00:26 Additional Information: Source: [facility] POWERCHART Document Id: [id number] Miscellaneous - Sunshine Anglin L.PGiovanyNGiovany - 03/16/2016 8:33 AM CDT Adult System Safety Engineer Intake/History Adult System Safety Engineer Intake/History Entered On: 03/16/2016 8:35 CDT Performed On: 03/16/2016 8:33 CDT by SUNSHINE ANGLIN LPN Intake Systolic Blood Pressure : 128 mmHg Diastolic Blood Pressure : 76 mmHg NIBP Mean : 93 mmHg BP Location : Left upper extremity Blood Pressure Cuff Size : Regular Height : 170 cm(Converted to: 5 ft 7 inch(es), 67 inch(es)) Actual Weight : 86.75 kg(Converted to: 191 lb 4 oz) Dosing Weight Clinic : 86.75 kg Clinic BSA : 2.02 Body Mass Index : 30.02 kg/m2 SUNSHINE ANGLIN LPN - 03/16/2016 8:33 CDT General Info Information Given By : Patient Languages : Maori Is Patient Female and 13-50 no hysterectomy : No SUNSHINE ANGLIN LPN - 03/16/2016 8:33 CDT Subjective Pain Symptoms : No SUNSHINE ANGLIN LPN - 03/16/2016 8:33 CDT Dependent Habits Exposure to Tobacco Smoke : Other: quit 03/1994 Smoking Status : Former smoker Tobacco 2A : Yes Tobacco Use/Currently Using : No Tobacco Use/Last 30 Days : No Tobacco Use/Last 12 months : No Tobacco Last Use/Month : March Tobacco Last Use/Year : 1993 SUNSHINE ANGLIN LPN - 03/16/2016 8:33 CDT Caffeine Use Grid Caffeine Use : Current Type : Chocolate, Soft drinks, Tea Frequency : Occasionally Last Use : 09/18/2015 SUNSHINE ANGLIN LPN - 03/16/2016 8:33 CDT Recreational Drug Use Grid Drug Use : None SUNSHINE ANGLIN LPN - 03/16/2016 8:33 CDT Source: [facility] [employer] ScamCHART Document Id: [id number] CDT!36 documented in this encounter Plan of Treatment Upcoming Encounters Date Type Specialty Care Team Description 03/25/2022 Office Visit Family Medicine Leslie Gonzalez M.D. [address] [place] [address] [phone] (Wo rk) documented as of this encounter Visit Diagnoses Not on filedocumented in this encounter
--- OUTSIDE RECORDS SUMMARY | 2022-03-22 15:49 | XMS_ITS | Encounter Summary ---
:1950 Author Organization [facility] Address [address] [place] [address] Care Team Providers Name Role Phone Unavailable Primary Care Provider Unavailable Encounter Details Date Type Department Care Team Description 10/29/2015 Hospital Encounter HX [facility] FAMILYPRA Jame Bee P.A.-C. [address] [place] [phone] (Wo rk) Social History Tobacco Use Types Packs/Day Years Used Date Smoking Tobacco: Never Assessed Alcohol Habits Answer Date Recorded How often do you have a drink containing 4 or more times a w siletz tribe 10/05/2021 alcohol? How many drinks containing alcohol [...] Sign Reading Time Taken Comments Blood Pressure 132/72 10/29/2015 9:06 AM CDT Pulse 72 10/29/2015 9:06 AM CDT Temperature - - Respiratory Rate 16 10/29/2015 9:06 AM CDT Oxygen Saturation - - Inhaled Oxygen Concentration - - Weight 88 kg (194 lb 0.1 oz) 10/29/2015 9:06 AM CDT Height 170 cm (5' 6.93) 10/29/2015 9:06 AM CDT Body Mass Index 30.45 10/29/2015 9:06 AM CDT documented in this encounter Medications [...] encounter Progress Notes Jostin Bee P.A.-C. - 10/29/2015 8:57 AM CDT [id number] CHIEF COMPLAINT/REASON FOR VISIT Nevus removal. HISTORY OF PRESENT ILLNESS Steph is a very pleasant lady who I saw recently for medication review. She has a history of a cough and she has been on antihistamine and the Flonase for the last week. She thinks it is a little betterbut she still coughs a little bit in the morning. We talked about restarting her omeprazole but she is discontinuing the Zantac for now. She also has a little bit of an elevated blood pressure when I saw her last time but that is better today. She had multiple nevi that were bothering her and she wanted to have them removed which is the primary reason for her visit today. VITAL SIGNS Noted in the EMR. Blood pressure is better at 132/72. PHYSICAL EXAMINATION Examination of her skin shows multiple skin tags around her neck. She has some other prominent lesions underneath her breasts and 1 in her left upper outer quadrant of her breast. This is really aggravated by her bra strap. IMPRESSION/REPORT/PLAN 1. Nevi. I think likely they are seborrheic keratoses but given the fact they are so irritating to her, I think we need to address them further and we will send 1 for dermatopathology to confirm the diagnosis. I cleansed 3 of the prominent areas that were bothering her the most very thoroughly. Two were underneath her breasts and 1 was on her left upper outer quadrant of her breast. There was also 1 small skin tag on her neck that was bothering her so I cleansed this as well thoroughly with alcohol.I then anesthetized all 4 of these areas with lidocaine with epinephrine and then using a DermaBlade, I removed all 4 of these areas. Bleeding was stopped with Drysol. Following this, we cleansed all these areas very thoroughly again with alcohol and covered them with an antibiotic ointment and a bandage. Will send them in for a dermatopathology. I sent in the 1 from the left upper outer quadrant, the other ones I did not send in because they all were very similar in appearance. If there are any further questions or problems, she will let us know. She should watch for signs of infection such as erythema or exudate and will keep us posted. 2. Cough. Again, I think this could be postnasal drip but it also could be her esophageal reflux, ilia is going to let us know how she responds over the next week or 2 with the Zyrtec and Flonase. Ifit does not improve we will start her back on the omeprazole. 3. Hypertension. This is better today. We will continue to keep an eye on it. If there are any further questions or problems, she will let us know. Jostin Bee PA-C/kyleigh Electronically Signed By: JOSTIN BEE PA-C On: 10/30/2015 08:20 AM Source: [facility] MHSDOLBEYNONRADSYS Document Id: [id number] documented in this encounter Miscellaneous Notes Miscellaneous - Jostin Bee P.A.-C. - 10/29/2015 9:54 AM CDT Ambulatory Patient Summary [address] [id number] Visit Information Name: STEPH SIMMONS [facility] Number: [id number] Current Date: 10/29/2015 09:54:06 Physicians Attending Provider: JOSTIN BEE PA-C Primary [...] nasal (Flonase 50 mcg/inh nasal spray) 2 [place](s), Nostrils(Both), once a day glucosamine-chondroitin (glucosamine-chondroitin) once [...] the Following Medications: Medication list as of 10-29-15 09:54 Attention: If you have any medications at [...] Electronically Signed By: JOSTIN BEE PA-C Signed On:29-OCT-2015 09:54:02 Your Allergies & Intolerances Substance Reaction Symptoms [...] Your Upcoming Appointments Date Time Location Provider 11/04/2015 08:30 [facility] Mammo [facility] [place] Room 1 Attention: Contact your local Clinic [...] if you dont have one. Go to [email or web address] and click on Create Your Account. Then, follow the directions to complete the online form. Youll be asked for your [facility] number which you can find at the top of this document. Your Goals/Additional instructions: Source: [facility] POWERCHART Document Id: [id number] Miscellaneous - Jostin Bee P.A.-C. - 10/29/2015 9:54 AM CDT Ambulatory Discharge Medication List [address] [id number] Visit Information Name: STEPH SIMMONS [facility] Number: [id number] Visit Date: 10/29/2015 09:54:05 Attending Provider: JOSTIN BEE PA-C Primary Care [...] nasal (Flonase 50 mcg/inh nasal spray) 2 [place](s), Nostrils(Both), once a day glucosamine-chondroitin (glucosamine-chondroitin) once [...] the Following Medications: Medication list as of 10-29-15 09:54 Attention: If you have any medications at [...] Electronically Signed By: JOSTIN BEE PA-C Signed On:29-OCT-2015 09:54:02 Additional Information: Source: [facility] POWERCHART Document Id: [id number] Miscellaneous - Benoit Roper L.P.N. - 10/29/2015 9:06 AM CDT Adult Pan Shaker Intake/History Adult Pan Shaker Intake/History Entered On: 10/29/2015 9:08 CDT Performed On: 10/29/2015 9:06 CDT by BENOIT ROPER LPN Intake Chief Complaint : check blood pressure and remove moles Temperature Core : 36.5 DegC(Converted to: 97.7 DegF) Peripheral Pulse Rate : 72 /min Respiratory Rate : 16 /min Systolic Blood Pressure : 132 mmHg Diastolic Blood Pressure : 72 mmHg NIBP Mean : 92 mmHg BP Location : Left upper extremity Blood Pressure Cuff Size : Large Height : 170 cm(Converted to: 5 ft 7 inch(es), 67 inch(es)) Actual Weight : 88 kg(Converted to: 194 lb 0 oz) Weight Source : Standing scale Dosing Weight Clinic : 88 kg Clinic BSA : 2.04 Body Mass Index : 30.45 kg/m2 BENOIT ROPER LPN - 10/29/2015 9:06 CDT General Info Information Given By : Patient Languages : Turkmen Is Patient Female and 13-50 no hysterectomy : No BENOIT ROPER LPN - 10/29/2015 9:06 CDT Subjective Pain Symptoms : Yes BENOIT ROPER LPN - 10/29/2015 9:06 CDT Pain Scale Pain Scale Verbal 0-10 : Open BENOIT ROPER LPN - 10/29/2015 9:06 CDT Pain Pain Assessment Grid Pain 1 Location : Foot BENOIT ROPER LPN - 10/29/2015 9:06 CDT Dependent Habits Exposure to Tobacco Smoke : Other: quit 03/1994 Smoking Status : Former smoker Tobacco 2A : Yes Tobacco Use/Currently Using : No Tobacco Use/Last 30 Days : No Tobacco Use/Last 12 months : No Tobacco Last Use/Month : March Tobacco Last Use/Year : 1993 BENOIT ROPER LPN - 10/29/2015 9:06 CDT Caffeine Use Grid Caffeine Use : Current Type : Chocolate, Soft drinks, Tea Frequency : Occasionally Last Use : 09/18/2015 BENOIT ROPER LPN - 10/29/2015 9:06 CDT Recreational Drug Use Grid Drug Use : None BENOIT ROPER LPN - 10/29/2015 9:06 CDT Source: [employer] Document Id: [id number] CDT!47 documented in this encounter Plan of Treatment Upcoming Encounters Date Type Specialty Care Team Description 03/25/2022 Office Visit Family Medicine Leslie Gonzalez M.D. [address] [place] [phone] (Wo rk) documented as of this encounter Procedures Procedure Name Priority Date/Time Associated Diagnosis Comme nts SURGICAL PATHOLOGY Routine 10/29/2015 2:11 PM Res ults for this CDT procedure are i n the results section. documented in this encounter Results Pathology Surgical Pathology (10/29/2015 2:11 PM CDT) Specimen (Source) Anatomical Collection Method Collection Time Re ceived Time Location / / Volume Laterality 10/29/2015 2:11 PM CDT Narrative [facility] - 10/31/2015 11:32 AM CDT [facility] in [address] [place] [address] Patient Name: STEPH SIMMONS Patient ID #: [id number] Collected: 10/29/2015 Address: [facility]/Zip: [address] [place], [place] [address] ??[id number] Received: Reported: 10/30/2015 10/31/2015 Soc. Sec. #: ?/Age/Sex 1950 (Age: 65) ??F Physician(s): RAJENDRA SHEPPARD Copy To: ? [facility] ??[id number] [facility], ??[place] ??[id number] SURGICAL PATHOLOGY REPORT FINAL DIAGNOSIS: SKIN, LEFT UPPER BREAST: --- SEBORRHEIC KERATOSIS. [facility]/10/31/2015 ERIC CLINE M.D. Report electronically released. Interpretation by ERIC CLINE M.D. SPECIMEN(S) RECEIVED: LEFT UPPER BREAST NEVUS GROSS DESCRIPTION: Submitted as left upper breast is a 0.6 x 0.6 x 0.1 cm shave of light-wright skin. ??Inked, sectioned. ??ESB, one cassette. ([id number]) [facility]/PAP/10/30/2015 MICROSCOPIC DESCRIPTION: Reviewed by Eric Cline M.D.; Path ologist PAP/10/31/2015 Jostin Bee P.A.-C. LAB SURG PATH ORDERABLES Performing Organization Address City/State/ZIP Code Phon e Number [facility] documented in this encounter Visit Diagnoses Not on filedocumented in this encounter
--- OUTSIDE RECORDS SUMMARY | 2022-03-22 15:49 | XMS_ITS | Encounter Summary ---
:1950 Author Organization [facility] Address [address] [place] [address] Care Team Providers Name Role Phone Unavailable Primary Care Provider Unavailable Encounter Details Date Type Department Care Team Description 09/20/2016 Hospital Encounter HX [facility] Ken Dalton M.D. [address] [place] [address], [address] [place], [place] [phone] (Wo rk) Social History Tobacco Use Types [...] or slept in a halfway (including now)? Sex Assigned at Date Recorded Female 03/07/2018 9:31 AM CDT documented as of this encounter Last Filed Vital Signs Vital Sign Reading Time Taken Comments Blood Pressure 130/62 09/20/2016 8:34 AM CDT Pulse - - Temperature - - Respiratory Rate - - Oxygen Saturation - - Inhaled Oxygen Concentration - - Weight 84.1 kg (185 lb 8.3 oz) 09/20/2016 8:34 AM CDT Height 170 cm (5' 6.93) 09/20/2016 8:34 AM CDT Body Mass Index 29.12 09/20/2016 8:34 AM CDT documented in this encounter Medications [...] by 0 06/03/20 16 06/30/2020 mouth daily. Bifidobacterium infantis Take 1 capsule by 0 [...] encounter Progress Notes Charito Dalton M.D. - 09/20/2016 8:20 AM CDT [id number] CHIEF COMPLAINT/REASON FOR VISIT Low back and bilateral lower extremity pain and bilateral knee pain. HISTORY OF PRESENT ILLNESS Ms. Simmons returns today in followup. She returned from [place] 2 weeks ago. She reports she did have good and bad things about her time in [place]. The house that she rented there had 15 stepsto enter so she was constant walking up and down the stairs and it became difficult for her to do that secondary to pain that she is primarily experiencing in the left side of her low back radiating into her left gluteal region and left posterior lateral thigh to the level of the knee. It was also present on the right but greater on the left. She is also having increased pain in her bilateral knees with doing all the walking up and down stairs. It was nice however that she was able to walk on flat paved ground as part of her exercise routine which she found very beneficial and was able to lose weight and walked on a daily basis during the winter, which she was pleased with. She denies any focal weakness in her lower extremities, change in her bowel or bladder habits, fevers or chills, or recent unintentional weight loss. She was noting some occasional swelling in the right knee but that has improved since she has been back in [place] for the past 2 weeks. PHYSICAL EXAMINATION GENERAL: Pleasant 66-year-old female in no acute distress. GAIT: Nonantalgic. SPINE: Preserved lumbar spine range of motion. She does have pain at the end range of extension. Palpation: There is tenderness to palpation over the left greater than right lower lumbar paraspinals. There is no tenderness today with palpation of the bilateral greater trochanteric bursa regions. NEUROLOGIC: Strength:All major muscle groups of the bilateral upper and lower extremities have normal and symmetric muscle strength, bulk and tone. KNEE: There is no effusion present in either knee. Range of motion from 0 to 130 degrees. There is tenderness to palpation of the bilateral medial joint lines and about the bilateral medial and lateralpatellar facets. IMPRESSION/REPORT/PLAN 1. 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 2. Lumbar spondylosis. 3. Lumbar spinal stenosis. 4. Bilateral knee degenerative joint disease. 5. Small fiber peripheral neuropathy. Ms. Johnsons symptoms and examination are again most consistent with pseudoclaudication. She has known severe central canal narrowing at L4-L5 with impingement of the traversing L5 nerve roots. PLAN: 1. I am going to arrange for a left L5 transforaminal epidural corticosteroid injection with Ms. Simmons's symptoms and her previous response to the left L5 transforaminal epidural corticosteroid injection that was performed on April 06, 2016. 2. Ms. Simmons will continue the exercises she was shown on her own independently in physical therapy. She is very diligent with them, which I commended her on. She will also continue her aerobic exercise program which she has found to be very helpful. 3. We will plan on being in contact with Ms. Simmons 2 weeks following the left L5 transforaminal epidural corticosteroid injection and she knows to be in contact with us prior to that time if she notes any worsening or worrisome symptoms which we went over in detail today. Ms. Simmons voiced agreement and understanding with this plan. Total time 30 minutes, counseling and coordination of care time greater than 15 minutes. Charito Dalton M.D./kyleigh Electronically Signed By: CHARITO DALTON MD On: 09/21/2016 11:11 AM Modified by and Electronically Signed by: CHARITO DALTON MD On: 09/21/2016 11:11 AM Source: [facility] [id number] Document Id: [id number] documented in this encounter Miscellaneous Notes Miscellaneous - Sunshine Anglin L.P.N. - 09/20/2016 1:[address] Dalton Document Contains Addenda Addendum by SUNSHINE ANGLIN LPN on September 20, 2016 15:24:02 CDT Order faxed Addendum by NICHELLE MATHUR on September 20, 2016 15:21:56 CDT From: NICHELLE MATHUR ([facility] Home Office Representative/Radiology Outside [facility]) To: Physical Medicine and Rehabilitation Staff; Sent: 09/20/2016 15:21:56 CDT Subject: RE: Dr. Dalton No auth needed From: SUNSHINE ANGLIN LPN ( Physical Medicine and Rehabilitation Staff) To: [facility] Home Office Representative/Radiology Outside [facility]; Sent: 09/20/2016 13:06:49 CDT Subject: Dr. Dalton Patient Referred to Provider or Facility: _CDI Ordering Provider: Sha_ Appointment Date (if known): _ Imaging Service Ordered: (list CPT code or body part to be scanned) _ _ W/ Contrast _ W/O Contrast _ W/O Contrast followed by with _ _ CT/CTA _ MRI _ MRA _ PET _Nuclear Cardiology Study _x Other: (list): Left L5 transforaminal Diagnosis (CPT code if Known): _ Injury Related _ Yes _x No If yes, dateand type of injury: _ Source: [facility] POWERCHART Document Id: [id number] Electronically signed by Conversion, [facility] [employer] Finisher [id number] at 11/16/2016 12:28 PM CDT Miscellaneous - Charito Dalton M.D. - 09/20/2016 9:10 AM CDT Ambulatory Patient Summary [address] [id number] Visit Information Name: STEPH SIMMONS [facility] Number: [id number] Current Date: 09/20/2016 09:10:02 Physicians Attending Provider: CHARITO DALTON MD Primary [...] nasal (Flonase 50 mcg/inh nasal spray) 2 Emerson(s), Nostrils(Both), once a day glucosamine-chondroitin (glucosamine-chondroitin) once [...] times a day as needed for constipation traMADol (traMADol 50 mg oral tablet) 1 Tablet(s), Oral, every 4 hours as needed for Pain Stop Taking the Following Medications: Medication list as of 09-20-16 09:10 Attention: If you have any medications at [...] Electronically Signed By: CHARITO DALTON MD Signed On:20-SEP-2016 09:09:29 Your Allergies & Intolerances Substance Reaction Symptoms [...] if you dont have one. Go to [email or web address] and click on Create Your Account. Then, follow the directions to complete the online form. Youll be asked for your [facility] number which you can find at the top of this document. Your Goals/Additional instructions: Source: [facility] POWERCHART Document Id: [id number] Miscellaneous - Charito Dalton M.D. - 09/20/2016 9:10 AM CDT Ambulatory Discharge Medication List [address] [id number] Visit Information Name: STEPH SIMMONS [facility] Number: [id number] Current Date: 09/20/2016 09:10:00 Attending Provider: CHARITO DALTON MD Primary Care [...] nasal (Flonase 50 mcg/inh nasal spray) 2 Emerson(s), Nostrils(Both), once a day glucosamine-chondroitin (glucosamine-chondroitin) once [...] times a day as needed for constipation traMADol (traMADol 50 mg oral tablet) 1 Tablet(s), Oral, every 4 hours as needed for Pain Stop Taking the Following Medications: Medication list as of 09-20-16 09:10 Attention: If you have any medications at [...] Electronically Signed By: CHARITO DALTON MD Signed On:20-SEP-2016 09:09:29 Additional Information: Source: [facility] POWERCHART Document Id: [id number] Miscellaneous - Claudia Birmingham, L.P.N. - 09/20/2016 8:34 AM CDT Adult Medical Service Technician Intake/History Adult Medical Service Technician Intake/History Entered On: 09/20/2016 8:37 CDT Performed On: 09/20/2016 8:34 CDT by CLAUDIA BIRMINGHAM LPN Intake Systolic Blood Pressure : 130 mmHg Diastolic Blood Pressure : 62 mmHg NIBP Mean : 85 mmHg BP Location : Left upper extremity Blood Pressure Cuff Size : Regular Height : 170 cm(Converted to: 5 ft 7 inch(es), 67 inch(es)) Actual Weight : 84.15 kg(Converted to: 185 lb 8 oz) Dosing Weight Clinic : 84.15 kg Clinic BSA : 1.99 Body Mass Index : 29.12 kg/m2 CLAUDIA BIRMINGHAM [facility] - 09/20/2016 8:34 CDT General Info Information Given By : Patient Languages : Chilean Is Patient Female and 13-50 no hysterectomy : No CLAUDIA BIRMINGHAM [facility] - 09/20/2016 8:34 CDT Subjective Pain Symptoms : No CLAUDIA BIRMINGHAM [facility] - 09/20/2016 8:34 CDT Dependent Habits Exposure to Tobacco Smoke : Other: quit 03/1994 Smoking Status : Former smoker Tobacco 2A : Yes Tobacco Use/Currently Using : No Tobacco Use/Last 30 Days : No Tobacco Use/Last 12 months : No Tobacco Last Use/Month : March Tobacco Last Use/Year : 1993 CLAUDIA BIRMINGHAM [facility] - 09/20/2016 8:34 CDT Caffeine Use Grid Caffeine Use : Current Type : Chocolate, Soft drinks, Tea Frequency : Occasionally Last Use : 06/02/2016 CLAUDIA BIRMINGHAM [facility] - 09/20/2016 8:34 CDT Recreational Drug Use Grid Drug Use : None CLAUDIA BIRMINGHAM [facility] - 09/20/2016 8:34 CDT Source: [employer] Document Id: [id number] CDT!36 documented in this encounter Plan of Treatment Upcoming Encounters Date Type Specialty Care Team Description 03/25/2022 Office Visit Family Medicine Leslie Gonzalez M.D. [address] [place] [phone] (Wo rk) documented as of this encounter Visit Diagnoses Not on filedocumented in this encounter
--- OUTSIDE RECORDS SUMMARY | 2022-03-22 15:49 | XMS_ITS | Encounter Summary ---
:1950 Author Organization [facility] Address [address] [place] [address] Care Team Providers Name Role Phone Unavailable Primary Care Provider Unavailable Encounter Details Date Type Department Care Team Description 11/08/2016 Hospital Encounter HX [facility] Merrill Knott P.A.-C. [address] [place] [phone] (Wo rk) Social History Tobacco Use Types Packs/Day Years Used Date Smoking Tobacco: Former Alcohol Habits Answer Date Recorded How often do you have a drink containing 4 or more times a w [place] 10/05/2021 alcohol? How many drinks containing [...] or relatives? How often do you attend amish or 1 to 4 times per year 07/2021 confucianist services? Do you belong to any clubs or Yes 10/05/2021 organizations such as amish groups, unions, fraternal or athletic groups, or [...] Visit Family Medicine Leslie Gonzalez M.D. [address] [place] [phone] (Wo rk) documented as of this encounter Visit Diagnoses Not on filedocumented in this encounter
--- OUTSIDE RECORDS SUMMARY | 2022-03-22 15:49 | XMS_ITS | Encounter Summary ---
:1950 Author Organization [facility] Address [address] [place] [address] Care Team Providers Name Role Phone Unavailable Primary Care Provider Unavailable Encounter Details Date Type Department Care Team Description 03/16/2016 Hospital Encounter HX [facility] FB Ken Urrutia M.D. [address] [place] [address], [address] [place] [address] (Wo rk) Social History Tobacco [...] slept in a senior living (including now)? Sex Assigned at Date Recorded Female 03/07/2018 9:31 AM CDT documented as of this encounter Last Filed Vital Signs Vital Sign Reading Time Taken Comments Blood Pressure - - Pulse - - Temperature - - Respiratory Rate - - Oxygen Saturation - - Inhaled Oxygen Concentration - - Weight - - Height 170 cm (5' 6.93) 03/16/2016 9:37 AM CDT Body Mass Index - - [...] Office Visit Family Medicine Leslie Gonzalez M.D. [facility] [place] [phone] (Wo rk) documented as of this encounter Procedures Procedure Name Priority Date/Time Associated Diagnosis Comme nts DX KNEE BILATERAL 3 Routine 03/16/2016 9:32 AM Re sults for this VIEWS CDT procedure are i n the results section. documented in this encounter Results DX Knee Bilateral 3 Views (03/16/2016 9:32 AM CDT) Anatomical Region Laterality Modality Lower Extremity, Knee Bilateral Radiographic Imagi ng Specimen (Source) Anatomical Collection Method Collection Time Re ceived Time Location / / Volume Laterality 03/16/2016 9:32 AM CDT Addenda Addendum by Provider, Tammy Benz 03/16/2016 9:32 AM CDT RAD^^^OW XR Knee Bilat 3 views 03/16/2016 09:32:50 Impressions 03/16/2016 10:11 AM CDT ??Please see above dictation. Narrative 03/16/2016 10:11 AM CDT EXAM: ??XR Knee Bilat 3 views AGE: ??65 years old. GENDER: ??Female. INDICATION: ??knee pain; not otherwise s pecified. COMPARISON: ??None. FINDINGS: ??Mild/moderately prominent de generative changes of the bilateral knees with tricompartmental silver int space narrowing. Small marginal osteophytes along the lef t medial joint line. If pain persists consider follow-up imag ing. Procedure Note Martinez Bernard M.D. / Provider, Denise ram M.D. - 10/09/2016 EXAM: XR Knee Bilat 3 views AGE: [age] years old. GENDER: Female. INDICATION: knee pain; not otherwise spe cified. COMPARISON: None. FINDINGS: Mild/moderately prominent dege nerative changes of the bilateral knees with tricompartmental silver int space narrowing. Small marginal osteophytes along the lef t medial joint line. If pain persists consider follow-up imag ing. IMPRESSION: Please see above dictation. Historical Provider IMG DIAGNOSTIC IMAGING PROCE DURES documented in this encounter Visit Diagnoses Not on filedocumented in this encounter
--- OUTSIDE RECORDS SUMMARY | 2022-03-22 15:49 | XMS_ITS | Encounter Summary ---
:1950 Author Organization [facility] Address [address] [place] [address] Care Team Providers Name Role Phone Unavailable Primary Care Provider Unavailable Encounter Details Date Type Department Care Team Description 10/17/2015 Hospital Encounter HX [facility] FB LAB Jame Bee P.A.-C. [address] [place] [phone] (Wo rk) Social History Tobacco Use Types Packs/Day Years Used Date Smoking Tobacco: Never Assessed Alcohol Habits Answer Date Recorded How often do you have a drink containing 4 or more times a w [place] 10/05/2021 alcohol? How many drinks containing alcohol [...] place to sleep or slept in a group home (including now)? Sex Assigned at Date Recorded Female 03/07/2018 9:31 AM CDT documented as of this encounter Last Filed Vital Signs Vital Sign Reading Time Taken Comments Blood Pressure - - Pulse - - Temperature - - Respiratory Rate - - Oxygen Saturation - - Inhaled Oxygen Concentration - - Weight - - Height 168 cm (5' 6.14) 10/17/2015 8:22 AM CDT Body Mass Index - - [...] Visit Family Medicine Leslie Gonzalez M.D. [address] [place] [phone] (Wo rk) documented as of this encounter Procedures Procedure Name Priority Date/Time Associated Comments Diagnosis LIPID PANEL, S Routine 10/17/2015 8:33 AM Results for this CDT procedure are i n the results section. HEMOGLOBIN A1C, B Routine 10/17/2015 8:33 AM Resu lts for this CDT procedure are i n the results section. COMPREHENSIVE Routine 10/17/2015 8:33 AM Results for this METABOLIC PANEL, S/P CDT procedu re are in the results section. documented in this encounter Results Hemoglobin A1c (10/17/2015 8:33 AM CDT) P athologist Signature Hemoglobin A1c, 5.2 <=5.6 A1C POWERCHART B Specimen (Source) Anatomical Collection Method Collection Time Re ceived Time Location / / Volume Laterality Blood 10/17/2015 8:33 AM CDT Merrill Bee P.A.-C. LAB BLOOD ADD-ON Performing Organization Address City/State/ZIP Code Phon e Number POWERCHART (ABNORMAL) Lipid Panel (10/17/2015 8:33 AM CDT) athologist Signature Calculated LDL 57 <=129 MGDL POWERCHART Comment: 2014 National Lipid Association recommen dations for LDL-C in adults ages 18 and up: Desirable <100 mg/dL Above desirable 100-129 mg/dL Borderline high 130-159 mg/dL High 160-189 mg/dL Very High 190 mg/dL 2014 National Lipid Association recommen dations for LDL-C in children ages 2 to 17. Acceptable <110 mg/dL Borderline High 110-129mg/dL High 130 mg/dL LDL-C >190mg/dL: The markedly elevated LDL level is suggestive of a genetic condition such as familial hypercholesterolemia(FH) or familial defective apolipoprotein B-100 (FDB). Molecular genetic t esting for FH and FDB is available [facility]ur [facility]: FH/ADH Genetic Reflex [place] (test ADHP). Acquired (non-genetic) causes of markedly increased LDL cholesterol include cholestatic liver disease due to the presence of LpX. If a genetic form of hypercholesterolemia is suspected, family studies including biochemical testing fo r lipids (total cholesterol,triglycerides, LDL cholesterol and HDL cholesterol) are recommended. ??Please contact the laboratory at or the on-line test catalog at [employer] for information about how to order these tomás ts or to speak with a genetic counselor. Further interpretation would require clinical information. Total Cholesterol/HDL Ratio 2.26 PO WERCHART Cholesterol, Total 190 <=199 MGDL POWERCHART Comment: 2013 National Lipid Association recommen dations for Total Cholesterol in adults ages 18 and up: Desirable <200 mg/dL Borderline high 200-239 mg/dL High 240 mg/dL 2014 National Lipid Association recommen dations for Total Cholesterol in children ages 2 to 17. Acceptable <170 mg/dL Borderline High 170-199 mg/dL High 200 mg/dL HX HDL 84 >=50 MGDL POWERCHART Comment: 2013 National Lipid Association recommen dations for HDL-C in adults ages 18 and up: Low <40 mg/dL (Men) Low <50 mg/dL (Women) 2014 National Lipid Association recommen dations for HDL-C in children ages 2 to 17. Low <40 mg/dL Borderline Low 40-45 mg/dL Acceptable >45 mg/dL Triglycerides 246 (H) <=149 MGDL POWERCHART Comment: 2013 National Lipid Association recommen dations for Triglycerides in adults ages 18 and up: Normal <150 mg/dL Borderline High 150-199 mg/dL High 200-499 mg/dL Very High 500 mg/dL 2014 National Lipid Association recommen dations for Triglycerides in children ages 2 to 9. Acceptable <75 mg/dL Borderline High 75-99 mg/dL High 100 mg/dL 2014 National Lipid Association recommen dations for Triglycerides in children ages 10 to 17. Acceptable <90 mg/dL Borderline High 90-129 mg/dL High 130 mg/dL Trigs >400mg/dL: Triglycerides >400 mg/ dL. Calculated LDL cholesterol is not valid. Non-HDL cholesterol may be used for risk assessment when triglycerides are >400mg/dL. HXLDL/HDL 1 POWERCHART Specimen (Source) Anatomical Collection Method Collection Time Re ceived Time Location / / Volume Laterality Blood 10/17/2015 8:33 AM CDT Merrill Bee P.A.-C. LAB BLOOD ADD-ON Performing Organization Address City/State/ZIP Code Phon e Number POWERCHART (ABNORMAL) CMP (Comprehensive Metabolic Panel) (10/17/2015 8:33 AM CDT) [facility] gist Method Time Signature Alanine 26 7 - 45 POWERCHART Amniotransferase, LD UNITL Albumin, S 4.6 3.2 - 5.2 POWERCHART GDL Alkaline 79 55 - 142 POWERCHART Phosphatase, S UNITL Aspartate 24 8 - 43 POWERCHART Aminotransferase UNITL (AST), S Sodium, S 141 135 - 145 POWERCHART MMOLL Potassium, S 4.2 3.6 - 5.2 POWERCHART MMOLL Chloride, S 101 98 - 107 POWERCHART MMOLL CO2 Total 29 22 - 29 POWERCHART MMOLL Glucose, Fasting, S 115 (H) 70 - 99 POWERCHART MGDL BUN (Blood Urea 17 6 - 21 POWERCHART Nitrogen), S MGDL Creatinine 0.7 0.6 - 1.1 POWERCHART MGDL Calcium, Total, S 9.6 8.8 - POWERCHART 10.3 MGDL Anion Gap 11 7 - 15 POWERCHART MMOLL HXeGFR (MDRD) >60 >=60 POWERCHART [id number] 2 eGFR Black/ >60 >=60 POWERCHART [place] [id number] 2 Bilirubin, Total, S 0.5 0.1 - 1.0 POWERCHART MGDL Total Protein, S 6.8 6.3 - 7.9 POWERCHART GDL Specimen (Source) Anatomical Collection Method Collection Time Re ceived Time Location / / Volume Laterality Blood 10/17/2015 8:33 AM CDT Merrill Bee P.A.-C. LAB BLOOD ADD-ON Performing Organization Address City/State/ZIP Code Phon e Number POWERCHART documented in this encounter Visit Diagnoses Not on filedocumented in this encounter
--- OUTSIDE RECORDS SUMMARY | 2022-03-22 15:49 | XMS_ITS | Encounter Summary ---
:1950 Author Organization [facility] Address [address] [place] [address] Care Team Providers Name Role Phone Unavailable Primary Care Provider Unavailable Encounter Details Date Type Department Care Team Description 11/08/2016 Hospital Encounter HX [facility] FAMILYPRA Kathleen Bee P.A.-C. [address] [place] [phone] (Wo rk) Social History Tobacco Use Types Packs/Day Years Used Date Smoking Tobacco: Former Alcohol Habits Answer Date Recorded How often do you have a drink containing 4 or more times a w [place] 10/05/2021 alcohol? How many drinks containing alcohol [...] Sign Reading Time Taken Comments Blood Pressure 128/64 11/08/2016 8:19 AM CDT Pulse - - Temperature - [...] as needed. documented as of this encounter H&P Notes Jostin Bee P.A.-C. - 11/08/2016 8:00 AM CDT [id number] CHIEF COMPLAINT/REASON FOR VISIT Medication review. HISTORY OF PRESENT ILLNESS Mayra is a very pleasant 66-year-old female with multiple medical comorbidities. She has arthritis that bothers her but for the most part, she is able to work through this. 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 She has a history of a stroke and has some limited vision in her eyes but gets by pretty well as a result of this. Has a history of a partial colectomy in the past. She had a colonoscopy done. I have a different date than what she saying. She thinks she had one in 2011 but we are going to get the records to confirm this. She had some endometriosisfound apparently on her colon at the time of her hysterectomy and she did have a partial colectomy. She has really done pretty well with though. Her bowels have been good. She just needs a follow up screening colonoscopies. It was recommended every 5 years. She had some skin tags on her neck today that she wants me look at otherwise, does not really have any other new concerns. I had her come in to get her blood work drawn prior to the visit today and this blood work looks good, which is a TSH, hemoglobin A1c, lipid panel, metabolic panel, without any significant abnormalities. She does have a history of esophageal reflux as well. She takes Protonix and Zantac. We had talked about trying to get her off the Protonix but she has now continued on the both of them still. PAST MEDICAL/SURGICAL HISTORY Reviewed in the EMR. FAMILY HISTORY Also reviewed in electronic medical record today. SOCIAL HISTORY She is . She lives alone but is enjoying herself. She is keeping active. SYSTEMS REVIEW I performed a complete review of systems. Pertinent positives noted in HPI. All others are negative. VITAL SIGNS Noted in EMR. PHYSICAL EXAMINATION GENERAL: She appears in no acute distress. ENT: TMs no erythema. Throat no erythema. NECK: No lymphadenopathy. No thyroid masses. HEART: Regular rate and rhythm. No murmurs. LUNGS: Clear to auscultation. ABDOMEN: Soft, nontender to palpation. BREAST: Exam was done. Breasts are symmetrical. No axillary lymphadenopathy noted. No mass appreciated. SKIN: She has a few inflamed skin tags. One particularly bothers her on her right upper chest wall. We discussed treatment options and I did remove this with electrocautery today after I cleansed it thoroughly with alcohol and I covered it with a Band-Aid and an antibiotic ointment. LOWER EXTREMITIES: Without edema. IMPRESSION/REPORT/PLAN 1. Health maintenance. She is going to get her bone density scan done. She is doing her mammogram today. We need to find out about her colonoscopy and I will plan to get this arranged once we find out the confirmation of her previous date. She says she is okay with having Dr. Rosado do this one. 2. Esophageal reflux. I would like to get her off the Protonix if she can and just continue on the Zantac but if not, we can continue on the both as necessary. She is going to give this a try and let us know how she responds. 3. Hyperlipidemia. She is doing well on the Lipitor which I renewed today. 4. Allergies. She does well with her Flonase and she takes an hhtd-mtp-huaspiz antihistamine. 5. Degenerative disc disease. She has had some neuropathy as a result of this and for the most part,this is stable and not changing. 6. Ischemic neuropathy. She has some visual field loss but this has not changed either. She feels asthis is a stable problem. We will continue to control her lipids as best we can. 7. Skin tag. I am going to have her keep an eye on this. If she notes any signs of infection, she will let us know otherwise, if she has any of these other ones that she wants to have removed, she willnotify us and we can do them but it would be more of a shave lesion. If there is any further questions or any problems, Mayra will let us know. Otherwise, I am going to have her follow up as needed. Total time spent today with Mayra was 40 minutes of which 35 of it was in [id number] coordination of care and counseling. Jostin Bee P.A.-C./kyleigh Electronically Signed By: JOSTIN BEE PA-C On: 11/08/2016 03:35 PM Source: [facility] MHSDOLBEYNONRADSYS Document Id: [id number] documented in this encounter Miscellaneous Notes Miscellaneous - Jostin Bee P.A.-C. - 11/08/2016 9:50 AM CDT Ambulatory Patient Summary [address] [id number] Visit Information Name: MAYRA SIMMONS [facility] Number: [id number] Current Date: 11/08/2016 09:50:42 Physicians Attending Provider: JOSTIN BEE PA-C Primary [...] day cetirizine (ZyrTEC) Oral, once a day glucosamine-chondroitin (glucosamine-chondroitin) once [...] oral capsule) See Instructions 2 cap(s) PO 2x / i capsule twice a day. pantoprazole [...] the Following Medications: Medication list as of 11-08-16 09:50 Attention: If you have any medications [...] Electronically Signed By: JOSTIN BEE PA-C Signed On:08-NOV-2016 09:50:37 Your Allergies & Intolerances Substance Reaction Symptoms Category Comments amoxicillin diarrhea Drug morphine hives Drug piroxicam swollen hands and feet, ankles Drug Levaquin hives Drug Lyrica fatigue, edema at high dose Drug Your Problem List Problem Status Onset Comments Degenerative disc disease* Active Arthritis, unspecified* Active Esophageal reflux (GERD) Active Partial colectomy Active H/O: hysterectomy Active Neuropathy peripheral Active 02/23/2011 Hypercholesterolemia* Active Impaired FastingGlucose Active Tiredness/Fatigue Active 10/31/2012 Stroke Active 12/11/2012 Ischemic Optic Neuropathy Active 12/13/2012 Gastroesophageal Reflux Disease (GERD NILESH) Active Rhinitis Allergic NOS Active Your Upcoming Appointments Date Time Location Provider 12/06/2016 13:30 [facility] BD Room 1 11/09/2017 07:30 [facility] Lab [facility] Lab 11/09/2017 08:00 [facility] Mammo [facility] MA Exam RM 1 11/11/2017 08:15 [facility] FamilyPrac Jostin Olivares Attention: Contact your local Clinic [...] if you dont have one. Go to [email or web address] and click on Create Your Account. Then, follow the directions to complete the online form. Youll be asked for your [facility] number which you can find at the top of this document. Your Goals/Additional instructions: Source: [facility] POWERCHART Document Id: [id number] Miscellaneous - Jostin Bee P.A.-C. - 11/08/2016 9:50 AM CDT Ambulatory Discharge Medication List [address] [id number] Visit Information Name: MAYRA SIMMONS [facility] Number: [id number] Current Date: 11/08/2016 09:50:41 Attending Provider: JOSTIN BEE PA-C Primary Care [...] day cetirizine (ZyrTEC) Oral, once a day glucosamine-chondroitin (glucosamine-chondroitin) once [...] the Following Medications: Medication list as of 11-08-16 09:50 Attention: If you have any medications [...] Electronically Signed By: JOSTIN BEE PA-C Signed On:08-NOV-2016 09:50:37 Additional Information: Source: [facility] POWERCHART Document Id: [id number] Miscellaneous - Simona Roper, L.P.N. - 11/08/2016 9:13 AM CDT PHQ-9 PHQ-9 Entered On: 11/08/2016 9:14 CDT Performed On: 11/08/2016 9:13 CDT by SIMONA ROPER LPN PHQ-9 Little interest or pleasure in doing things : Not at all Feeling down, depressed, or hopeless : Not at all Trouble falling or staying asleep, or sleeping too much : Not at all Feeling tired or having little energy : Not at all Poor appetite or overeating : Not at all Feeling bad about yourself or that you are a failure : Not at all Trouble concentrating on things : Not at all Moving or speaking slowly; restless or fidgety : Not at all Thoughts that you would be better off /hurting self : Not at all PHQ-9 Calculated Score : 0 Problems make work, home, or dealing with others : Not difficult at all SIMONA ROPER LPN - 11/08/2016 9:13 CDT Source: [facility] POWERCHART Document Id: [id number] CDT!13 Miscellaneous - Simona Roper LGiovanyP.NGiovany - 11/08/2016 8:22 AM CDT Health Assessment Health Assessment Entered On: 11/08/2016 8:24 CDT Performed On: 11/08/2016 8:22 CDT by SIMONA ROPER LPN Health Assessment Complete Health Assessment Complete or Modified : Annual Health Assessment Annual Health Assessment Completed : Yes SIMONA ROPER LPN - 11/08/2016 8:22 CDT Nutrition Nutrition Risk Factors by History Adult : None SIMONA ROPER LPN - 11/08/2016 8:22 CDT Functional Current Daily Living Assistance : None SIMONA ROPER LPN - 11/08/2016 8:22 CDT Dependent Habits Exposure to Tobacco Smoke : Other: quit 03/1994 Smoking Status : Former smoker Tobacco 2A : Yes Tobacco Use/Currently Using : No Tobacco Use/Last 30 Days : No Tobacco Use/Last 12 months : No Tobacco Last Use/Month : March Tobacco Last Use/ : 1993 Alcohol Use : No SIMONA ROPER LPN - 11/08/2016 8:22 CDT Caffeine Use Grid Caffeine Use : Current Type : Chocolate, Soft drinks, Tea Frequency : Occasionally Last Use : 06/02/2016 SIMONA ROPER LPN - 11/08/2016 8:22 CDT Recreational Drug Use Grid Drug Use : None SIMONA ROPER LPN - 11/08/2016 8:22 CDT Psychosocial Domestic Abuse Concerns : None Behavioral Health Screen/Safety Assmt : No Yarsanism Preference : Unknown SIMONA ROPER LPN - 11/08/2016 8:22 CDT Advance Directive Advanced Directives : Yes Advance Directive Type : Living will Advance Directive Location : Scanned into EMR SIMONA ROPER LPN - 11/08/2016 8:22 CDT Educ Needs Learning Style Preference Adult Grid Patient : None Family : None SIMONA ROPER LPN - 11/08/2016 8:22 CDT [facility] Document Id: [id number] CDT!39 Miscellaneous - Simona Roper L.P.N. 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 Supervisor Intake/History Entered On: 11/08/2016 8:22 CDT Performed On: 11/08/2016 8:19 CDT by SIMONA ROPER LPN Intake Chief Complaint : physical- mole concern Temperature Core : 36.5 DegC(Converted to: 97.7 DegF) Peripheral Pulse Rate : 76 /min Respiratory Rate : 12 /min (LOW) Systolic Blood Pressure : 128 mmHg Diastolic Blood Pressure : 64 mmHg NIBP Mean : 85 mmHg BP Location : Left upper extremity Blood Pressure Cuff Size : Regular Height : 168 cm(Converted to: 5 ft 6 inch(es), 66 inch(es)) Actual Weight : 85 kg(Converted to: 187 lb 6 oz) Weight Source : Standing scale Dosing Weight Clinic : 85 kg Clinic BSA : 1.99 Body Mass Index : 30.12 kg/m2 SIMONA ROPER LPN - 11/08/2016 8:19 CDT General Info Information Given By : Patient Languages : Citizen Of [place] Is Patient Female and 13-50 no hysterectomy : No SIMONA ROPER LPN - 11/08/2016 8:19 CDT Subjective Pain Symptoms : Yes SIMONA ROPER LPN - 11/08/2016 8:19 CDT Pain Scale Pain Scale Verbal 0-10 : Open SIMONA ROPER LPN - 11/08/2016 8:19 CDT Pain Pain Assessment Grid Pain 1 Location : Lower back SIMONA ROPER LPN - 11/08/2016 8:19 CDT Dependent Habits Exposure to Tobacco Smoke : Other: quit 03/1994 Smoking Status : Former smoker Tobacco 2A : Yes Tobacco Use/Currently Using : No Tobacco Use/Last 30 Days : No Tobacco Use/Last 12 months : No Tobacco Last Use/Month : March Tobacco Last Use/Year : 1993 SIMONA ROPER LPN - 11/08/2016 8:19 CDT Caffeine Use Grid Caffeine Use : Current Type : Chocolate, Soft drinks, Tea Frequency : Occasionally Last Use : 06/02/2016 SIMONA ROPER LPN - 11/08/2016 8:19 CDT Recreational Drug Use Grid Drug Use : None SIMONA ROPER LPN - 11/08/2016 8:19 CDT [facility] Document Id: [id number] CDT!47 documented in this encounter Plan of Treatment Upcoming Encounters Date Type Specialty Care Team Description 03/25/2022 Office Visit Family Medicine Leslie Gonzalez M.D. [address] [place] [phone] (Wo rk) documented as of this encounter Visit Diagnoses Not on filedocumented in this encounter
--- OUTSIDE RECORDS SUMMARY | 2022-03-22 15:49 | XMS_ITS | Encounter Summary ---
:1950 Author Organization [facility] Address [address] [place] [address] Care Team Providers Name Role Phone Jostin Bee P.A.-C. Primary Care Provider [phone] Encounter Details Date Type Department Care Team Description 12/06/2016 Hospital Encounter HX [facility] BONE DENS Jame Bee P.A.-C. [address] [place] [address] (Wo rk) Social History Tobacco Use Types Packs/Day Years Used Date Smoking Tobacco: Former Alcohol Habits Answer Date Recorded How often do you have a drink containing 4 or more times a w [place] 10/05/2021 alcohol? How many drinks containing [...] 1 to 4 times per year 07/2021 [employer] services? Do you belong to any clubs [...] - - Height 168 cm (5' 6.14) 12/06/2016 1:16 PM CDT Body Mass Index - - documented [...] Bifidobacterium infantis Take 1 capsule by 0 07/02/201106/30/2020 (ALIGN) 4 mg capsule mouth daily. BILBERRY [...] of this encounter Miscellaneous Notes Miscellaneous - Jostin Bee P.A.-C. - 12/08/2016 12:16 PM CDT Results Notification Document Contains Addenda Addendum by BENOIT ROPER LPN on December 08, 2016 12:23:17 CDT Spoke with: ( _x ) Patient ( _ ) Parent ( _ ) Spouse ( _ ) Child ( ) Other: _ Call back telephone number: _ Reason for Call: -_notified Steph of her results Chief Complaint: patient _ Patient/Caller response to Education/Information given: ( x_ ) Verbalizes understanding of instructions ( _ ) Provide intervention per provider instruction ( _ ) Reinforce information already given ( _ ) Reinforce Plan of Care ( _ ) Provide preprinted information by mail (if applicable) Source/Reference used (if applicable): _ OK to leave message on voice mail? _ OK to send message via patient portal? _ Patient told to expect return call: ( _ ) today ( _ ) tomorrow ( _ ) next work day Callers preferred language for Healthcare discussion: _ Was an stock clerk used for this call? _ Other ( --_ ) From: JOSTIN BEE PA-C To: BENOIT ROPER LPN; Sent: 12/08/2016 12:16:56 CDT ! Show up: 12/08/2016 12:16:56 CDT Subject: Results Notification Actions: Note to Nurse Reminder Comments: She has osteopenia but overall OK so continue with calcium and vitamin D. Please let her know. Results: Date Result Type Result Name 12/06/2016 14:00 Radiology BD Hip/Pelvis/Spine Source: [facility] POWERCHART Document Id: [id number] Electronically signed by Conversion, [facility] Orthopedic Podiatrist [id number] at 12/10/2016 12:05 AM CDT documented in this encounter Plan of Treatment Upcoming Encounters Date Type Specialty Care Team Description 03/25/2022 Office Visit Family Medicine Leslie Gonzalez M.D. [address] [place] [phone] (Wo rk) documented as of this encounter Procedures Procedure Name Priority Date/Time Associated Diagnosis Comme nts BMD BONE DENSITY Routine 12/06/2016 1:30 PM Resul ts for this SPINE HIPS CDT procedure are i n the results section. documented in this encounter Results BMD BONE DENSITY SPINE HIPS (12/06/2016 1:30 PM CDT) Anatomical Region Laterality Modality Hip, Lumbar Spine N/A Radiographic Imaging Specimen (Source) Anatomical Collection Method Collection Time Re ceived Time Location / / Volume Laterality 12/06/2016 1:30 PM CDT Impressions 12/06/2016 1:57 PM CDT ?? 1. Osteopenia. T score -1.0 2. The probability of major osteoporotic fracture is 16.2% and the probability of hip fracture is 1.8% with in the next 10 years according to FRAX risk assessment. EQUIPMENT: [employer] TECHNIQUE: The lumbar spine and hips wer e scanned with DXA. STATISTICAL SCORE: DXA results are repor marc according to t score. ??The t-score is the standard deviation from t he peak bone mass in a normal young adult patient. ??A t-score of -1.0 to -2.5 correlates with osteopenia. ??A t-score of less than -2. 5 correlates with osteoporosis. In accordance with ISCD (International S ociety of Clinical Densitometry) the lowest BMD between the total hip and femoral neck will be used for evaluation. All treatment decisions require clinical judgement and consideration of individual patient factors which may not be captured in the FRAX model and the risk of fracture may be ov er- or under-estimated by FRAX. FINDINGS: ?? SPINE REGION OF INTEREST: L1-L4 BMD (g/cm2): 1.299 T-SCORE: 0.8 HIP REGION OF INTEREST: Left femoral neck. BMD (g/cm2): 0.898 T-SCORE: -1.0 REGION OF INTEREST: Right femoral neck. BMD (g/cm2): 0.928 T-SCORE: -0.8 RECOMMENDATIONS: 1. Follow up BMD should be determined ac cording to each patient's clinical status, typically one year afte r initiation or change of therapy is appropriate. 2. Medical evaluation for secondary caus es of low BMD may be appropriate. Narrative 12/06/2016 1:57 PM CDT EXAM: BD Hip/Pelvis/Spine INDICATION: screening COMPARISON: None available Procedure Note Martinez Bernard M.D. / ProviderDenise M.D. - 12/10/2016 EXAM: BD Hip/Pelvis/Spine INDICATION: screening COMPARISON: None available IMPRESSION: 1. Osteopenia. T score -1.0 2. The probability of major osteoporotic fracture is 16.2% and the probability of hip fracture is 1.8% with in the next 10 years according to FRAX risk assessment. EQUIPMENT: [employer] TECHNIQUE: The lumbar spine and hips wer e scanned with DXA. STATISTICAL SCORE: DXA results are repor marc according to t score. The t-score is the standard deviation from t he peak bone mass in a normal young adult patient. A t-score of -1.0 t o -2.5 correlates with osteopenia. A t-score of less than -2.5 correlates with osteoporosis. In accordance with ISCD (International S ociety of Clinical Densitometry) the lowest BMD between the total hip and femoral neck will be used for evaluation. All treatment decisions require clinical judgement and consideration of individual patient factors which may not be captured in the FRAX model and the risk of fracture may be ov er- or under-estimated by FRAX. FINDINGS: SPINE REGION OF INTEREST: L1-L4 BMD (g/cm2): 1.299 T-SCORE: 0.8 HIP REGION OF INTEREST: Left femoral neck. BMD (g/cm2): 0.898 T-SCORE: -1.0 REGION OF INTEREST: Right femoral neck. BMD (g/cm2): 0.928 T-SCORE: -0.8 RECOMMENDATIONS: 1. Follow up BMD should be determined ac cording to each patient's clinical status, typically one year afte r initiation or change of therapy is appropriate. 2. Medical evaluation for secondary caus es of low BMD may be appropriate. Amparo Figueroa(R) IMG DXA PROCEDURES documented in this encounter Visit Diagnoses Not on filedocumented in this encounter Care Teams Aviation Support Equipment Repairer Relationship Specialty Start Date End Date Jostin Bee P.A.-C. PCP - General 11/18/[address] [place] [phone] documented as of this encounter
--- OUTSIDE RECORDS SUMMARY | 2022-03-22 15:49 | XMS_ITS | Encounter Summary ---
:1950 Author Organization [facility] Address [address] [place] [address] Care Team Providers Name Role Phone Jostin Bee P.A.-C. Primary Care Provider [phone] Encounter Details Date Type Department Care Team Description 12/06/2016 Hospital Encounter HX [facility] Ken Dalton M.D. [address] [place] [address], [address] [place] [address] (Wo rk) Social History Tobacco Use Types Packs/Day Years Used Date Smoking Tobacco: Former Alcohol Habits Answer Date Recorded How often do you have a drink containing 4 or more times a w orutsararmiut 10/05/2021 alcohol? How many drinks containing alcohol [...] or relatives? How often do you attend zoroastrianism or 1 to 4 times per year 07/2021 mandaeism services? Do you belong to any clubs or Yes 10/05/2021 organizations such as zoroastrianism groups, unions, fraternal or athletic groups, or [...] Sign Reading Time Taken Comments Blood Pressure 138/74 12/06/2016 11:35 AM CDT Pulse - - Temperature - - Respiratory Rate - - Oxygen Saturation - - Inhaled Oxygen Concentration - - Weight 84.9 kg (187 lb 4.5 oz) 12/06/2016 11:35 AM CDT Height 168 cm (5' 6.14) 12/06/2016 11:35 AM CDT Body Mass Index 30.1 12/06/2016 11:35 AM CDT documented in this encounter Medications [...] encounter Progress Notes Charito Dalton M.D. - 12/06/2016 11:14 AM CDT [id number] CHIEF COMPLAINT/REASON FOR VISIT Follow up low back pain and bilateral lower extremity pain. HISTORY OF PRESENT ILLNESS Ms. Simmons returns today. She reports that things are basically unchanged since I saw her on 2016. The left L5 transforaminal corticosteroid injection was helpful for her on October 05 but shecontinues to describe discomfort that is located in her low back and then pain that can occur in thebilateral posterior thighs and bilateral posterolateral legs especially when she is ambulating, although it can also occur when she is sitting especially into her lower extremities. She is still walking 4 to 5 miles per day for exercise. She reports that her 1st mile is typically worse but once she continues to walk typically the symptoms do improve. She denies any change in bowel or bladder habits, fevers or chills, or recent unintentional weight loss. The paresthesias that she has been experiencing in her bilateral lower extremities are unchanged. PHYSICAL EXAMINATION GENERAL: Pleasant 66-year-old female in no acute distress. GAIT: Nonantalgic. SPINE: Preserved lumbar spine range of motion. PALPATION: There is tenderness to palpation of the bilateral lower lumbar paraspinals. STRENGTH: All major muscle groups of the bilateral lower extremities have normal and symmetric muscle strength, bulk and tone. REFLEXES: Bilateral lower extremity muscle stretch reflexes are physiologic and symmetric. Plantar responses downgoing bilaterally. STRAIGHT LEG RAISE: Straight leg raise is negative for radicular pain or paresthesias bilaterally. IMPRESSION/REPORT/PLAN 1. 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 2. Lumbar spondylosis. 3. Lumbar spinal stenosis. 4. Bilateral knee degenerative joint disease. 5. Small fiber peripheral neuropathy. This is a difficult situation for Ms. Simmons. She certainly does have symptoms which are consistent with pseudoclaudication although she does experience discomfort that can occur in her lower extremities at rest as well although not nearly as frequent as when ambulating. PLAN: 1. I am going to place Ms. Simmons on Cymbalta 30 mg daily. We went over side effects of this medication in detail. I am hopeful this will help with the symptoms she experiences in her bilateral lowerextremities as well as the paresthesias she can experience consistent with her small fiber peripheral neuropathy. 2. Ms. Simmons will continue the exercises she was shown independently in physical therapy and continue her aerobic exercise program which is excellent. 3. I will plan to see Ms. Simmons in 2 months to assess her progress or sooner if she notes any worsening symptoms which we went over in detail today. She voiced agreement and understanding with this plan. Total time 25 minutes, counseling and coordination of care time greater than 15 minutes. Charito Dalton M.D./kyleigh Electronically Signed By: CHARITO DALTON MD On: 12/09/2016 10:47 AM Modified by and Electronically Signed by: CHARITO DALTON MD On: 12/09/2016 10:47 AM Source: [facility] MHSDOLBEYNONRADSYS Document Id: [id number] documented in this encounter Miscellaneous Notes Miscellaneous - Charito Dalton M.D. - 12/06/2016 11:50 AM CDT Ambulatory Patient Summary [address] [id number] Visit Information Name: MAYRA SIMMONS [facility] Number: [id number] Current Date: 12/06/2016 11:50:30 Physicians Attending Provider: CHARITO DALTON MD Primary Care Provider: JOSTIN BEE PA-C MAYRA [...] day cetirizine (ZyrTEC) Oral, once a day esomeprazole (NexIUM OTC) 20 mg, Oral, once [...] 2xDay / i capsule twice a day. *pantoprazole (Protonix 40 mg oral delayed release tablet) 1 Tablet(s), Oral, once a day *raNITIdine (Zantac 300 oral tablet) 1 Tablet(s), Oral, [...] the Following Medications: Medication list as of 12-06-16 11:50 Attention: If you have any medications at [...] Electronically Signed By: CHARITO DALTON MD Signed On:06-DEC-2016 11:49:39 Your Allergies & Intolerances Substance Reaction Symptoms [...] MA Exam RM 1 11/11/2017 08:15 [facility] Jostin Olivares Attention: Contact your local [...] if you dont have one. Go to [email or web address] and click on Create Your Account. Then, follow the directions to complete the online form. Youll be asked for your [facility] number which you can find at the top of this document. Your Goals/Additional instructions: Source: [facility] POWERCHART Document Id: [id number] Miscellaneous - Charito Dalton M.D. - 12/06/2016 11:50 AM CDT Ambulatory Discharge Medication List [address] [id number] Visit Information Name: MAYRA SIMMONS [facility] Number: [id number] Current Date: 12/06/2016 11:50:29 Attending Provider: CHARITO DALTON MD Primary Care Provider: JOSTIN BEE PA-C MAYRA [...] day cetirizine (ZyrTEC) Oral, once a day esomeprazole (NexIUM OTC) 20 mg, Oral, once [...] 2xDay / i capsule twice a day. *pantoprazole (Protonix 40 mg oral delayed release tablet) 1 Tablet(s), Oral, once a day *raNITIdine (Zantac 300 oral tablet) 1 Tablet(s), Oral, [...] the Following Medications: Medication list as of 12-06-16 11:50 Attention: If you have any medications at [...] Electronically Signed By: CHARITO DALTON MD Signed On:06-DEC-2016 11:49:39 Additional Information: [facility] MaterialsCHART Document Id: [id number] Miscellaneous - Ronda Anglin L.P.N. - 12/06/2016 11:35 AM CDT Adult Group President Intake/History Adult Group President Intake/History Entered On: 12/06/2016 11:36 CDT Performed On: 12/06/2016 11:35 CDT by RONDA ANGLIN LPN Intake Systolic Blood Pressure : 138 mmHg Diastolic Blood Pressure : 74 mmHg NIBP Mean : 95 mmHg BP Location : Left upper extremity Blood Pressure Cuff Size : Regular Height : 168 cm(Converted to: 5 ft 6 inch(es), 66 inch(es)) Actual Weight : 84.95 kg(Converted to: 187 lb 5 oz) Dosing Weight Clinic : 84.95 kg Clinic BSA : 1.99 Body Mass Index : 30.1 kg/m2 RONDA ANGLIN LPN - 12/06/2016 11:35 CDT General Info Information Given By : Patient Languages : Malian Is Patient Female and 13-50 no hysterectomy : No RONDA ANGLIN LPN - 12/06/2016 11:35 CDT Subjective Pain Symptoms : No RONDA ANGLIN LPN - 12/06/2016 11:35 CDT Dependent Habits Exposure to Tobacco Smoke : Other: quit 03/1994 Smoking Status : Former smoker Tobacco 2A : Yes Tobacco Use/Currently Using : No Tobacco Use/Last 30 Days : No Tobacco Use/Last 12 months : No Tobacco Last Use/Month : March Tobacco Last Use/Year : 1993 RONDA ANGLIN LPN - 12/06/2016 11:35 CDT Caffeine Use Grid Caffeine Use : Current Type : Chocolate, Soft drinks, Tea Frequency : Occasionally Last Use : 06/02/2016 RONDA ANGLIN LPN - 12/06/2016 11:35 CDT Recreational Drug Use Grid Drug Use : None RONDA ANGLIN LPN - 12/06/2016 11:35 CDT [facility]Just Dial Document Id: [id number] CDT!36 documented in this encounter Plan of Treatment Upcoming Encounters Date Type Specialty Care Team Description 03/25/2022 Office Visit Family Medicine Leslie Gonzalez M.D. [address] [place] [phone] (Wo rk) documented as of this encounter Visit Diagnoses Not on filedocumented in this encounter Care Teams Visual Inspector Relationship Specialty Start Date End Date Jostin Bee P.A.-C. PCP - General 11/18/[address] [place] [phone] documented as of this encounter
--- OUTSIDE RECORDS SUMMARY | 2022-03-22 15:49 | XMS_ITS | Encounter Summary ---
:1950 Author Organization [facility] Address [address] [place] [address] Care Team Providers Name Role Phone Unavailable Primary Care Provider Unavailable Encounter Details Date Type Department Care Team Description 11/05/2016 Hospital Encounter HX [facility] Jame Fink P.A.-C. [address] [place] [phone] (Wo rk) Social History Tobacco Use Types Packs/Day Years Used Date Smoking Tobacco: Former Alcohol Habits Answer Date Recorded How often do you have a drink containing 4 or more times a w sun'aq 10/05/2021 alcohol? How many drinks containing alcohol [...] or slept in a assisted (including now)? Sex Assigned at Date Recorded Female 03/07/2018 9:31 AM CDT documented as of this encounter Last Filed Vital Signs Vital Sign Reading Time Taken Comments Blood Pressure - - Pulse - - Temperature - - Respiratory Rate - - Oxygen Saturation - - Inhaled Oxygen Concentration - - Weight - - Height 170 cm (5' 6.93) 11/05/2016 7:37 AM CDT Body Mass Index - - [...] Visit Family Medicine Leslie Gonzalez M.D. [address] [place] [phone] (Wo rk) documented as of this encounter Procedures Procedure Name Priority Date/Time Associated Comments Diagnosis LIPID PANEL, S Routine 11/05/2016 7:55 AM Results for this CDT procedure are i n the results section. THYROID-STIMULATING Routine 11/05/2016 7:55 AM Re sults for this HORMONE-SENSITIVE CDT procedure are in (S-TSH) the results section. HEMOGLOBIN A1C, B Routine 11/05/2016 7:55 AM Resu lts for this CDT procedure are i n the results section. COMPREHENSIVE Routine 11/05/2016 7:55 AM Results for this METABOLIC PANEL, S/P CDT procedu re are in the results section. documented in this encounter Results S-TSH (Thyroid-Stimulating Hormone - Sensitive) (11/05/2016 7:55 AM CDT) P athologist Signature TSH 0.87 0.27 - 4.20 POWERCHART (Thyrotropin) MIUL Comment: Biotin has been identified by the jessica cturer as a potential interfering substance. Higher concentrations of biotin may be found in multivitamins, hair/nail supplements, and workout supplements. If the result does not match clinical observat ions, repeat testing after patient refrains from the use of supplements for at least 12 hours. Specimen (Source) Anatomical Collection Method Collection Time Re ceived Time Location / / Volume Laterality Blood 11/05/2016 7:55 AM CDT Merrill Bee P.A.-C. LAB BLOOD ADD-ON Performing Organization Address City/State/ZIP Code Phon e Number POWERCHART Lipid Panel (11/05/2016 7:55 AM CDT) P athologist Signature Cholesterol, 197 <=199 MGDL POWERCHART Total Comment: 2013 National Lipid Association recommen dations for Total Cholesterol in adults ages 18 and up: Desirable <200 mg/dL Borderline high 200-239 mg/dL High 240 mg/dL 2014 National Lipid Association recommen dations for Total Cholesterol in children ages 2 to 17. Acceptable <170 mg/dL Borderline High 170-199 mg/dL High 200 mg/dL HX HDL 91 >=50 MGDL POWERCHART Comment: 2013 National Lipid Association recommen dations for HDL-C in adults ages 18 and up: Low <40 mg/dL (Men) Low <50 mg/dL (Women) 2014 National Lipid Association recommen dations for HDL-C in children ages 2 to 17. Low <40 mg/dL Borderline Low 40-45 mg/dL Acceptable >45 mg/dL Triglycerides 124 <=149 MGDL POWERCHART Comment: 2013 National Lipid [...] for risk assessment when triglycerides are >400mg/dL. Calculated LDL 81 <=129 MGDL POWERCHART Comment: 2013 National Lipid Association recommen dations for LDL-C [...] for FH and FDB is available mayur delgado [facility]: FH/ADH Genetic Reflex [place] (test ADHP). Acquired (non-genetic) causes of markedly increased LDL cholesterol include cholestatic liver disease due to the presence of LpX. If a genetic form of hypercholesterolemia is suspected, family studies including biochemical testing fo r lipids (total cholesterol,triglycerides, LDL cholesterol and HDL cholesterol) are recommended. ??Please contact the laboratory at or the on-line test catalog at [employer] for information about how to order these tomás ts or to speak with a genetic counselor. Further interpretation would require clinical information. Total Cholesterol/HDL Ratio 2.00 PO WERCHART HXLDL/HDL 1 POWERCHART Specimen (Source) Anatomical Collection Method Collection Time Re ceived Time Location / / Volume Laterality Blood 11/05/2016 7:55 AM CDT Merrill Bee P.A.-C. LAB BLOOD ADD-ON Performing Organization Address City/State/ZIP Code Phon e Number POWERCHART (ABNORMAL) CMP (Comprehensive Metabolic Panel) (11/05/2016 7:55 AM CDT) Patholo gist Method Time Signature Alanine 33 7 - 45 POWERCHART Amniotransferase, LD UNITL Albumin, S 4.6 3.2 - 5.2 POWERCHART GDL Alkaline 81 35 - 105 POWERCHART Phosphatase, S UL Aspartate 31 8 - 43 POWERCHART Aminotransferase UNITL (AST), S Sodium, S 145 135 - 145 POWERCHART MMOLL Potassium, S 4.6 3.6 - 5.2 POWERCHART MMOLL Chloride, S 107 98 - 107 POWERCHART MMOLL CO2 Total 27 22 - 29 POWERCHART MMOLL Comment: Reference ranges have not been established for patients that are <12 months of age. Glucose, Fasting, S 122 (H) 70 - 99 MGDL POWERCH ART BUN (Blood Urea Nitrogen), S 24 (H) 6 - 21 MGDL POWERCHART Creatinine 0.82 0.60 - 1.10 MGDL POWERCHART Calcium, Total, S 9.3 8.8 - 10.3 MGDL POWERC HONG Anion Gap 11 7 - 15 MMOLL POWERCHART HXeGFR (MDRD) >60 >=60 [id number] POWERCHART eGFR Black/ >60 >=60 [id number] POWERCHART Bilirubin, Total, S 0.4 <=1.2 MGDL POWERCHAR T Total Protein, S 6.7 6.4 - 8.3 GDL POWERCHAR T Specimen (Source) Anatomical Collection Method Collection Time Re ceived Time Location / / Volume Laterality Blood 11/05/2016 7:55 AM CDT Merrill Bee P.A.-C. LAB BLOOD ADD-ON Performing Organization Address City/State/ZIP Code Phon e Number POWERCHART Hemoglobin A1c (11/05/2016 7:55 AM CDT) P athologist Signature Hemoglobin A1c, 5.4 <=5.6 A1C POWERCHART B Specimen (Source) Anatomical Collection Method Collection Time Re ceived Time Location / / Volume Laterality Blood 11/05/2016 7:55 AM CDT Merrill Bee P.A.-C. LAB BLOOD ADD-ON Performing Organization Address City/State/ZIP Code Phon e Number POWERCHART documented in this encounter Visit Diagnoses Not on filedocumented in this encounter
--- OUTSIDE RECORDS SUMMARY | 2022-03-22 15:49 | XMS_ITS | Encounter Summary ---
:1950 Author Organization [facility] Address [address] [place] [address] Care Team Providers Name Role Phone Unavailable Primary Care Provider Unavailable Encounter Details Date Type Department Care Team Description 05/20/2016 Hospital Encounter HX [facility] Ken Dalton M.D. [address] [place] [address], [address] [place], [place] [phone] (Wo rk) Social History Tobacco Use Types Packs/Day Years Used Date Smoking Tobacco: Never Assessed Alcohol Habits Answer Date Recorded How often do you have a drink containing 4 or more times a w [place] 10/05/2021 alcohol? How many drinks containing alcohol [...] or relatives? How often do you attend evangelical or 1 to 4 times per year 07/2021 anabaptism services? Do you belong to any clubs or Yes 10/05/2021 organizations such as evangelical groups, unions, fraternal or athletic groups, or [...] Reading Time Taken Comments Blood Pressure 132/76 05/20/2016 9:03 AM MATZO FORMING MACHINE OPERATOR Pulse - - Temperature - - Respiratory Rate - - Oxygen Saturation - - Inhaled Oxygen Concentration - - Weight 88.9 kg (195 lb 14.1 oz) 05/20/2016 9:03 AM MATZO FORMING MACHINE OPERATOR Height 170 cm (5' 6.93) 05/20/2016 9:03 AM MATZO FORMING MACHINE OPERATOR Body Mass Index 30.74 05/20/2016 9:03 AM MATZO FORMING MACHINE OPERATOR documented in this encounter Medications at Time [...] encounter Progress Notes Charito Dalton M.D. - 05/20/2016 8:57 AM CST [id number] CHIEF COMPLAINT/REASON FOR VISIT Low back and bilateral lower extremity pain. HISTORY OF PRESENT ILLNESS Ms. Simmons returns today in followup. She had a left L5 transforaminal epidural corticosteroid injection performed on April 06, 2016. She reports it has been very helpful for her left lower extremity pain and she is very pleased with. She notes the procedure per however she continues to be bothered by pain in her right lower extremity. She describes this pain as being primarily located in the right gluteal region and radiates into the right posterior lateral thigh and posterior lateral leg to the level of the ankle. She has longstanding paresthesias in her bilateral feet which are unchanged. This pain is worse when she is standing or walking but it can also be bothersome especially when she is lying supine. She denies any focal weakness in her lower extremities or change in her bowel or bladder habits. PHYSICAL EXAMINATION GENERAL: Pleasant 66-year-old female in no acute distress. GAIT: Nonantalgic. MUSCULOSKELETAL: Spine: Mildly decreased lumbar flexion today. There is tenderness to palpation of the right lower lumbar paraspinals. There is no tenderness to palpation over the right greater trochanteric bursa region. Strength: All major muscle groups of the bilateral lower extremities have normal and symmetric muscle strength, bulk and tone. Seated straight leg raise on the right causes reproduction of her symptoms. IMPRESSION/REPORT/PLAN 1. 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 2. Lumbar spondylosis. 3. Lumbar spinal stenosis. 4. Small fiber peripheral neuropathy. Ms. Simmons did have an MRI performed of her lumbar spine on May 17, 2016, and I reviewed the images with her in detail. Significant findings included a stable lumbar curve convex to the left. There is severe central canal narrowing at L4-L5 with impingement of the traversing L5 nerve roots and mild to moderate bilateral neural foraminal narrowing. At L5-S1 there is mild narrowing of the central canal with moderate narrowing of the left neural foramen. There are also multilevel degenerative changes. Ms. Simmons's symptoms are again most consistent with central canal stenosis at L4-L5 with resultant bilateral L5 radicular symptoms. Her neurologic examination is unchanged. PLAN: 1. We are going to arrange for a right L5 transforaminal epidural corticosteroid injection with Ms. Simmons's symptoms. She is going to be leaving for [place] for 3 months in the next couple of weeks so we will try to have this performed before she leaves for the winter. 2. We will plan on being in contact with her in 2 weeks following the right L5 transforaminal epidural corticosteroid injection and she knows to be in contact with us prior to that time if she notes any worsening symptoms which we went over in detail today. Ms. Simmons voiced agreement and understanding with this plan. Charito Dalton M.D./kyleigh Electronically Signed By: CHARITO DALTON MD On: 05/24/2016 12:38 PM Modified by and Electronically Signed by: CHARITO DALTON MD On: 05/24/2016 12:38 PM Source: [facility] MHSDOLBEYNONRADSYS Document Id: [id number] O FORMING MACHINE OPERATOR documented in this encounter Miscellaneous Notes Miscellaneous - Sunshine Anglin, AshPGiovanyN. - 05/20/2016 11:[address] Dalton Document Contains Addenda Addendum by SUNSHINE ANGLIN LPN on May 24, 2016 11:23:16 MATZO FORMING MACHINE OPERATOR Order faxed Addendum by NICHELLE MATHUR on May 20, 2016 15:47:28 MATZO FORMING MACHINE OPERATOR From: NICHELLE MATHUR ([facility] Retirement Manager/[facility]iology [facility]) To: SUNSHINE ANGLIN LPN; Sent: 05/20/2016 15:47:28 MATZO FORMING MACHINE OPERATOR Subject: RE: Dr. Dalton No auth needed From: SUNSHINE ANGLIN LPN To: [facility] Retirement Manager/[facility]; Sent: 05/20/2016 11:42:46 MATZO FORMING MACHINE OPERATOR Subject: Dr. aDlton Patient Referred to Provider or Facility: [facility]_ Ordering Provider: _Sha Appointment Date (if known): _ Imaging Service Ordered: (list CPT code or body part to be scanned) _ _ W/ Contrast _ W/O Contrast _ W/O Contrast followed by with _ _ CT/CTA _ MRI _ MRA _ PET _Nuclear Cardiology Study _x Other: (list): Right L5 transforaminal epidural corticosteroid injection. Diagnosis (CPT code if Known): _ Injury Related _ Yes _x No If yes, date and type of injury: _ Source: [facility] POWERCHART Document Id: [id number] Electronically signed by Conversion, [facility] Commercial Lawn Specialist [id number] at 10/31/2016 6:38 AM CDT Miscellaneous - Charito Dalton M.D. - 05/20/2016 9:58 AM CST Ambulatory Patient Summary [facility] [address] [place] [id number] Visit Information Name: STEPH SIMMONS [facility] Number: [id number] Current Date: 05/20/2016 09:58:05 Physicians Attending Provider: CHARITO DALTON MD Primary [...] nasal (Flonase 50 mcg/inh nasal spray) 2 [place](s), Nostrils(Both), once a day glucosamine-chondroitin (glucosamine-chondroitin) once [...] the Following Medications: Medication list as of 05-20-16 09:58 Attention: If you have any medications at [...] Electronically Signed By: CHARITO DALTON MD Signed On:20-MAY-2016 09:57:38 Your Allergies & Intolerances Substance Reaction Symptoms [...] if you dont have one. Go to [email or web address] and click on Create Your Account. Then, follow the directions to complete the online form. Youll be asked for your [facility] number which you can find at the top of this document. Your Goals/Additional instructions: Source: [facility] POWERCHART Document Id: [id number] O FORMING MACHINE OPERATOR Miscellaneous - Charito Dalton M.D. - 05/20/2016 9:58 AM CST Ambulatory Discharge Medication List [facility] [address] [place] [id number] Visit Information Name: STEPH SIMMONS [facility] Number: [id number] Current Date: 05/20/2016 09:58:04 Attending Provider: CHARITO DALTON MD Primary Care [...] nasal (Flonase 50 mcg/inh nasal spray) 2 [place](s), Nostrils(Both), once a day glucosamine-chondroitin (glucosamine-chondroitin) once [...] the Following Medications: Medication list as of 05-20-16 09:58 Attention: If you have any medications at [...] Electronically Signed By: CHARITO DALTON MD Signed On:20-MAY-2016 09:57:38 Additional Information: Source: [facility] POWERCHART Document Id: [id number] O FORMING MACHINE OPERATOR Miscellaneous - Sunshine Anglin L.P.N. - 05/20/2016 9:03 AM CST Adult Coremaking Machine Operator Intake/History Adult Coremaking Machine Operator Intake/History Entered On: 05/20/2016 9:05 MATZO FORMING MACHINE OPERATOR Performed On: 05/20/2016 9:03 MATZO FORMING MACHINE OPERATOR by SUNSHINE ANGLIN LPN Intake Systolic Blood Pressure : 132 mmHg Diastolic Blood Pressure : 76 mmHg NIBP Mean : 95 mmHg BP Location : Left upper extremity Blood Pressure Cuff Size : Regular Height : 170 cm(Converted to: 5 ft 7 inch(es), 67 inch(es)) Actual Weight : 88.85 kg(Converted to: 195 lb 14 oz) Dosing Weight Clinic : 88.85 kg Clinic BSA : 2.05 Body Mass Index : 30.74 kg/m2 SUNSHINE ANGLIN LPN - 05/20/2016 9:03 MATZO FORMING MACHINE OPERATOR General Info Information Given By : Patient Languages : Moldovan Is Patient Female and 13-50 no hysterectomy : No SUNSHINE ANGLIN LPN - 05/20/2016 9:03 MATZO FORMING MACHINE OPERATOR Subjective Pain Symptoms : No SUNSHINE ANGLIN LPN - 05/20/2016 9:03 MATZO FORMING MACHINE OPERATOR Dependent Habits Exposure to Tobacco Smoke : Other: quit 03/1994 Smoking Status : Former smoker Tobacco 2A : Yes Tobacco Use/Currently Using : No Tobacco Use/Last 30 Days : No Tobacco Use/Last 12 months : No Tobacco Last Use/Month : March Tobacco Last Use/Year : 1993 SUNSHINE ANGLIN LPN - 05/20/2016 9:03 MATZO FORMING MACHINE OPERATOR Caffeine Use Grid Caffeine Use : Current Type : Chocolate, Soft drinks, Tea Frequency : Occasionally Last Use : 09/18/2015 SUNSHINE ANGLIN LPN - 05/20/2016 9:03 MATZO FORMING MACHINE OPERATOR Recreational Drug Use Grid Drug Use : None SUNSHINE ANGLIN LPN - 05/20/2016 9:03 MATZO FORMING MACHINE OPERATOR Source: [facility] POWERCHART Document Id: [id number] MATZO FORMING MACHINE OPERATOR!36 O FORMING MACHINE OPERATOR documented in this encounter Plan of Treatment Upcoming Encounters Date Type Specialty Care Team Description 03/25/2022 Office Visit Family Medicine Leslie Gonzalez M.D. [address] [place] [address] [phone] (Wo rk) documented as of this encounter Visit Diagnoses Not on filedocumented in this encounter
--- OUTSIDE RECORDS SUMMARY | 2022-03-22 15:49 | XMS_ITS | Encounter Summary ---
:1950 Author Organization [facility] Address [address] [place] [address] Care Team Providers Name Role Phone Unavailable Primary Care Provider Unavailable Encounter Details Date Type Department Care Team Description 06/03/2016 Hospital Encounter HX [facility] FAMILY[facility] Jame Bee P.A.-C. [address] [place] [phone] (Wo rk) Social History Tobacco Use Types Packs/Day Years Used Date Smoking Tobacco: Never Assessed Alcohol Habits Answer Date Recorded How often do you have a drink containing 4 or more times a w [place] 10/05/2021 alcohol? How many drinks containing alcohol [...] or relatives? How often do you attend bahai or 1 to 4 times per year 07/2021 presybeterian services? Do you belong to any clubs or Yes 10/05/2021 organizations such as bahai groups, unions, fraternal or athletic groups, or [...] Reading Time Taken Comments Blood Pressure 138/74 06/03/2016 2:52 PM DRAFTER TOOL DESIGN Pulse 90 06/03/2016 2:52 PM DRAFTER TOOL DESIGN Temperature - - Respiratory Rate 16 06/03/2016 2:52 PM DRAFTER TOOL DESIGN Oxygen Saturation - - Inhaled Oxygen Concentration - - Weight 88.2 kg (194 lb 7.1 oz) 06/03/2016 2:52 PM DRAFTER TOOL DESIGN Height 170 cm (5' 6.93) 06/03/2016 2:52 PM DRAFTER TOOL DESIGN Body Mass Index 30.52 06/03/2016 2:52 PM DRAFTER TOOL DESIGN documented in this encounter Medications at Time [...] encounter Progress Notes Jostin Bee P.A.-C. - 06/03/2016 2:32 PM CST [id number] CHIEF COMPLAINT/REASON FOR VISIT Cough and sinus congestion. HISTORY OF PRESENT ILLNESS Mayra is a very pleasant 66-year-old female who has had a cough for the last week. She is leaving [facility] tomorrow. Going to be there for 3 months. PHYSICAL EXAMINATION VITAL SIGNS: Noted in the EMR. GENERAL: She appears in no acute distress. ENT: TMs are not erythematous. Throat no erythema. Sinuses are tender to percussion. HEART: Regular rate and rhythm. No murmurs. LUNGS: Clear to auscultation. IMPRESSION/REPORT/PLAN Sinusitis. Treat with Zithromax. Take a Z-Derek as directed. Push fluids. If her symptoms worsen or not improve, she will let us know. Otherwise, follow up as needed. Jostin Bee P.A.-C./kyleigh Electronically Signed By: JOSTIN BEE PA-C On: 06/04/2016 08:33 AM Source: [facility] MHSDOLBEYNONRADSYS Document Id: [id number] TER TOOL DESIGN documented in this encounter Miscellaneous Notes Miscellaneous - Jostin Bee P.A.-C. - 06/03/2016 3:57 PM CST Ambulatory Patient Summary [facility] [address] [place], [place] [phone] Visit Information Name: MAYRA SIMMONS [facility] Number: [id number] Current Date: 06/03/2016 15:57:13 Physicians Attending Provider: JOSTIN BEE PA-C Primary [...] directed x 5 day(s) New Routed to [address] [phone] bifidobacterium infantis (Align 4 mg oral capsule) 1 cap, Oral, once a day bilberry (bilberry) See Instructions Takes 1 cap daily calcium-vitamin D (Calcium 600+D) Oral, two times a day cetirizine (ZyrTEC) Oral, once a day *fluticasone nasal (Flonase 50 mcg/inh nasal spray) 2 [place](s), Nostrils(Both), once a day glucosamine-chondroitin (glucosamine-chondroitin) once [...] times a day as needed for constipation * You have let us know that you are not taking this medication as listed. Please talk with your primary care provider or the health care provider who prescribed the medication as soon as possible. Stop Taking the Following Medications: Medication list as of 06-03-16 15:57 Attention: If you have any medications at [...] Electronically Signed By: JOSTIN BEE PA-C Signed On:03-JUN-2016 15:57:08 Your Allergies & Intolerances Substance Reaction Symptoms [...] online form. Youll be asked for your [facility] number which you can find at the top of this document. Your Goals/Additional instructions: Source: [facility] POWERCHART Document Id: [id number] TER TOOL DESIGN Miscellaneous - Jostin Bee P.A.-C. - 06/03/2016 3:57 PM CST Ambulatory Discharge Medication List [address] [id number] Visit Information Name: MAYRA SIMMONS [facility] Number: [id number] Current Date: 06/03/2016 15:57:10 Attending Provider: JOSTIN BEE PA-C Primary Care [...] directed x 5 day(s) [place] [address] [phone] bifidobacterium infantis (Align 4 mg oral capsule) 1 cap, Oral, once a day bilberry (bilberry) See Instructions Takes 1 cap daily calcium-vitamin D (Calcium 600+D) Oral, two times a day cetirizine (ZyrTEC) Oral, once a day *fluticasone nasal (Flonase 50 mcg/inh nasal spray) 2 [place](s), Nostrils(Both), once a day glucosamine-chondroitin (glucosamine-chondroitin) once [...] times a day as needed for constipation * You have let us know that you are not taking this medication as listed. Please talk with your primary care provider or the health care provider who prescribed the medication as soon as possible. Stop Taking the Following Medications: Medication list as of 06-03-16 15:57 Attention: If you have any medications at [...] Electronically Signed By: JOSTIN BEE PA-C Signed On:03-JUN-2016 15:57:08 Additional Information: Source: [facility] POWERCHART Document Id: [id number] TER TOOL DESIGN Miscellaneous - Jostin Bee P.A.-C. - 06/03/2016 2:52 PM CST Adult Inspector Final Assembly Mechanical Intake/History Adult Inspector Final Assembly Mechanical Intake/History Entered On: 06/03/2016 14:55 DRAFTER TOOL DESIGN Performed On: 06/03/2016 14:52 DRAFTER TOOL DESIGN by JOSTIN BEE PA-C Intake Chief Complaint : cold for 6 days, cough, feels sinus full, sneezing and nasal drainage Onset of Symptoms : 6 days Temperature Core : 37.1 DegC(Converted to: 98.8 DegF) Peripheral Pulse Rate : 90 /min Respiratory Rate : 16 /min Systolic Blood Pressure : 138 mmHg Diastolic Blood Pressure : 74 mmHg NIBP Mean : 95 mmHg BP Location : Right upper extremity Blood Pressure Cuff Size : Regular SpO2 : 98 % Oxygen Therapy : Room air Height : 170 cm(Converted to: 5 ft 7 inch(es), 67 inch(es)) Actual Weight : 88.2 kg(Converted to: 194 lb 7 oz) Weight Source : Standing scale Dosing Weight Clinic : 88.2 kg Clinic BSA : 2.04 Body Mass Index : 30.52 kg/m2 JOSTIN BEE PA-C - 06/03/2016 14:52 DRAFTER TOOL DESIGN General Info Information Given By : Patient Preferred Communication Mode : Verbal Languages : Yemeni Is Patient Female and 13-50 no hysterectomy : No JOSTIN BEE PA-C - 06/03/2016 14:52 DRAFTER TOOL DESIGN Subjective Pain Symptoms : No (Comment: denies pain now, states when she coughs she has pain in her upper back 5/10 x 6 days [JOSTIN BEE PA-C - 06/03/2016 14:52 DRAFTER TOOL DESIGN] ) JOSTIN BEE PA-C - 06/03/2016 14:52 DRAFTER TOOL DESIGN Dependent Habits Exposure to Tobacco Smoke : Other: quit 03/1994 Smoking Status : Former smoker Tobacco 2A : Yes Tobacco Use/Currently Using : No Tobacco Use/Last 30 Days : No Tobacco Use/Last 12 months : No Tobacco Last Use/Month : March Tobacco Last Use/Year : 1993 Alcohol Use : Yes JOSTIN BEE PA-C - 06/03/2016 14:52 DRAFTER TOOL DESIGN Caffeine Use Grid Caffeine Use : Current Type : Chocolate, Soft drinks, Tea Frequency : Occasionally Last Use : 06/02/2016 JOSTIN BEE PA-C - 06/03/2016 14:52 DRAFTER TOOL DESIGN Recreational Drug Use Grid Drug Use : None JOSTIN BEE PA-C - 06/03/2016 14:52 DRAFTER TOOL DESIGN Source: [facility] Gizmo5 Document Id: [id number] DRAFTER TOOL DESIGN!46 TER TOOL DESIGN documented in this encounter Plan of Treatment Upcoming Encounters Date Type Specialty Care Team Description 03/25/2022 Office Visit Family Medicine Leslie Gonzalez M.D. [address] [place] [address] [phone] (Wo rk) documented as of this encounter Visit Diagnoses Not on filedocumented in this encounter
--- OUTSIDE RECORDS SUMMARY | 2022-03-22 15:50 | XMS_ITS | Encounter Summary ---
:1950 Author Organization [facility] Address [address] [place] [address] Care Team Providers Name Role Phone Unavailable Primary Care Provider Unavailable Encounter Details Date Type Department Care Team Description 04/09/2013 Hospital Encounter HX [facility] Rolanda Serna M.D. Social History Tobacco Use Types Packs/Day Years Used Date Smoking Tobacco: Never Assessed Alcohol Habits Answer Date Recorded How often do you have a drink containing 4 or more times a w [place] 10/05/2021 alcohol? How many drinks containing alcohol [...] Sign Reading Time Taken Comments Blood Pressure 120/76 04/09/2013 9:39 AM SALES HUNTER Pulse 64 04/09/2013 9:39 AM SALES HUNTER Temperature - - Respiratory Rate 16 04/09/2013 9:39 AM SALES HUNTER Oxygen Saturation - - Inhaled Oxygen Concentration - - Weight 88 kg (194 lb 0.1 oz) 04/09/2013 9:39 AM SALES HUNTER Height 172 cm (5' 7.72) 04/09/2013 9:39 AM SALES HUNTER Body Mass Index 29.75 04/09/2013 9:39 AM SALES HUNTER documented in this encounter Medications at Time of Discharge Medication Sig Dispensed Refills Start Date End Date CALCIUM CARBONATE/VITAMIN Take by mouth 2 0 01/27 D3 (CALCIUM 600 WITH (two) times a day. VITAMIN D3 ORAL) DOCOSAHEXANOIC ACID/EPA daily. 0 12/13/2012 (FISH OIL ORAL) GLUCOSAMINE/CHONDROITIN daily. 0 10/05/2010 SULF A (GLUCOSAMINE-CHONDROITIN ORAL) acetaminophen (TYLENOL Take by mouth 3 0 10/06/19 11 06/23/2020 EXTRA STRENGTH) 500 mg (three) times a tablet day. Bifidobacterium infantis Take 1 capsule by 0 [...] documented as of this encounter Progress Notes Pawel Serna M.D. - 04/09/2013 9:18 AM CST [id number] CHIEF COMPLAINT/REASON FOR VISIT Right ear plugged for the last 2 days. HISTORY OF PRESENT ILLNESS This 62-year-old female patient got some water in her right ear and the ear plugged up 2 days ago. Now her ear hurts down into her throat and her neck, across her sinus areas. In the past, when she would get water in her ears it would sort of clear up and drain, but this time it did not. She has had no fever, no cough, no drainage from her nose, no signs of allergies. EMR record reviewed and updated. SYSTEMS REVIEW RESPIRATORY: No cough or shortness of breath. CARDIOVASCULAR: No palpitation of the heart, no chest pain. GI: No nausea, vomiting, diarrhea, constipation or recent change in weight. : No dysuria, no hematuria. All other systems reviewed and negative, except as mentioned above. PHYSICAL EXAMINATION SKIN: Clear. EYES: Pupils equal, round, react to light and accommodation; EOMs full; fundi no papilledema, hemorrhage or exudate; lids normal. ENT: Ears: Right ear is blocked with cerumen. Irrigated until clear with some redness of the external auditory canal. Throat clear. Tongue normal. Teeth normal. LYMPH NODES: Neck: no lymphadenopathy. THYROID: Normal size, symmetric. HEART: No murmur, gallop or rub; normal size; PMI arteries normal. LUNGS: Clear to percussion and auscultation, normal to inspection, no retractions, no dyspnea. ABDOMEN: No masses, no organomegaly, nontender; normal to inspection, percussion and palpation; no distention. EXTREMITIES: Legs: no edema. Patient does have allergies, so did not wish to use a drop at this point, but we will treat her withZithromax 500 mg today, 250 mg daily for the next 4 days, and recheck in 2 weeks. Return sooner if needed. Pawel Serna M.D./tuyet Electronically Signed By: PAWEL SERNA MD On: 04/10/2013 12:25 PM Source: [facility] MHSDOLBEYNONRADSYS Document Id: [id number] S HUNTER documented in this encounter Procedure Notes Conversion, Historical Provider Ser - 04/09/2013 10:26 AM CST Ear Irrigation Ear Irrigation Entered On: 04/09/2013 10:27 SALES HUNTER Performed On: 04/09/2013 10:26 SALES HUNTER by MAYRA DANG Ear Irrigation Ear Irrigation Location : Right Ear Irrigation Technique Used : Syringe Ear Irrigation Solution Used : Warm water Patient's Tolerance/cooperation : Good Post irrigation ear canal evaluation : Patent Post Irrigation Tympanic Membrane Eval : Intact MAYRA DANG - 04/09/2013 10:26 SALES HUNTER Source: [facility] [employer] Document Id: [id number] SALES HUNTER!8 documented in this encounter Miscellaneous Notes Telephone Encounter - Mani Seth, RGiovanyN. - 04/09/2013 3:29 PM CST Prescription routing temporarily unavailable Entered by MANI SETH on 09 April 2013 15:29:46 SALES HUNTER zithromax printed and sent to [facility] The system is currently not able to route this prescription to the pharmacy. Please use another means to communicate this prescription to the intended pharmacy. Internal error.Contact pharmacy by othermeans.WAG Code:[id number] Desc Comments: Internal error.Contact pharmacy by other means.WAG Code:[id number] Desc [facility] Document Id: [id number] Electronically signed by [facility], [facility] Ab Initio Etl Developer [id number] at 11/03/2016 2:02 AM CDT Miscellaneous - Pawel Serna M.D. - 04/09/2013 10:33 AM CST Ambulatory Patient Summary [address] [id number] Visit Information Name: MAYRA SIMMONS [facility] Number: [id number] Current Date: 04/09/2013 10:33:53 Physicians Attending Provider: PAWEL SERNA MD Primary Care Provider: PAWEL SERNA MD MARLINEPRUDENCE MONSTER has been given the following list [...] you have problems taking your medications. Medication/Strength Dose Route Frequency Indications/Special Instructions/Comments/Notes azithromycin (Zithromax 250 mg oral tablet) 2 tablets on day 1, then 1 tablet on days 2-5 Oral as directed for 5 Days bilberry (bilberry) See Instructions Takes 1 cap daily omega-3 polyunsaturated fatty acids (omega-3 polyunsaturated fatty acids 500 mg oral capsule) See Instructions 2 cap(s) PO 2xDay / i capsule twice a day. aspirin (aspirin 325 mg oral delayed release tablet) 325 mg Oral once a day atorvastatin (Lipitor 40 mg oral tablet) 40 mg Oral once a day (at bedtime) pantoprazole (Protonix 40 mg oral enteric coated tablet) 40 mg Oral two times a day senna (senna 8.6 mg oral tablet) 8.6 mg Oral two times a day as needed for constipation bifidobacterium infantis (Align 4 mg oral capsule) 1 cap(s) Oral once a day Misc Prescription (Misc Prescription) 0.005 %, 1 drop Eyes(Both) once a day glucosamine-chondroitin (glucosamine-chondroitin) once a day *acetaminophen (Tylenol 500 mg oral tablet) Oral three times a day *naproxen (Aleve 220 mg oral tablet) 2 tab(s) Oral every 8 hours as needed for pain calcium-vitamin D (Calcium 600+D) Oral two times a day multivitamin (multivitamin) once a day * You have let us know that you are not taking this medication as listed. Please talk with your primary care provider or the health care provider who prescribed the medication as soon as possible. Attention: If you have any medications at home that are not on this list, DO NOT take them until youcontact your provider for clarification. Your Allergies & Intolerances Substance Reaction Symptoms Category Comments amoxicillin diarrhea Drug morphine hives Drug piroxicam swollen hands and feet, ankles Drug Levaquin hives Drug Lyrica fatigue, edema at high dose Drug Your Problem List Problem Status Onset Comments Sprain/strain, lumbar Active 01/27/2010 Degenerative disc disease* Active Arthritis, unspecified* Active Esophageal reflux (GERD) Active Partial colectomy Active H/O: hysterectomy Active Neuropathy peripheral Active 02/23/2011 Hypercholesterolemia* Active Chest wall pain* Active 10/09/2012 Impaired Fasting Glucose Active Tiredness/Fatigue Active 10/31/2012 Stroke Active 12/11/2012 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 Your Goals/Additional instructions: Source: [facility] POWERCHART Document Id: [id number] S HUNTER Miscellaneous - Pawel Serna M.D. - 04/09/2013 10:33 AM CST Ambulatory Depart Summary [address] [address] Visit Information Name: MAYRA SIMMONS [facility] Number: [id number] Visit Date: 04/09/2013 10:33:52 Attending Provider: PAWEL SERNA MD Primary Care Provider: PAWEL SERNA MD MAYRA SIMMONS has been given the following list of medications: Your Medications It is important to take your medications as directed. Use a pill box or chart to help remind you to take your medications. Please let your doctor or nurse know if you have problems taking your medications. Medication/Strength Dose Route Frequency Indications/Special Instructions/Comments/Notes azithromycin (Zithromax 250 mg oral tablet) 2 tablets on day 1, then 1 tablet on days 2-5 Oral as directed for 5 Days bilberry (bilberry) See Instructions Takes 1 cap daily omega-3 polyunsaturated fatty acids (omega-3 polyunsaturated fatty acids 500 mg oral capsule) See Instructions 2 cap(s) PO 2xDay / i capsule twice a day. aspirin (aspirin 325 mg oral delayed release tablet) 325 mg Oral once a day atorvastatin (Lipitor 40 mg oral tablet) 40 mg Oral once a day (at bedtime) pantoprazole (Protonix 40 mg oral enteric coated tablet) 40 mg Oral two times a day senna (senna 8.6 mg oral tablet) 8.6 mg Oral two times a day as needed for constipation bifidobacterium infantis (Align 4 mg oral capsule) 1 cap(s) Oral once a day Misc Prescription (Misc Prescription) 0.005 %, 1 drop Eyes(Both) once a day glucosamine-chondroitin (glucosamine-chondroitin) once a day *acetaminophen (Tylenol 500 mg oral tablet) Oral three times a day *naproxen (Aleve 220 mg oral tablet) 2 tab(s) Oral every 8 hours as needed for pain calcium-vitamin D (Calcium 600+D) Oral two times a day multivitamin (multivitamin) once a day * You have let us know that you are not taking this medication as listed. Please talk with your primary care provider or the health care provider who prescribed the medication as soon as possible. Attention: If you have any medications at home that are not on this list, DO NOT take them until youcontact your provider for clarification. 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 Intake/History Entered On: 04/09/2013 9:42 SALES HUNTER Performed On: 04/09/2013 9:39 SALES HUNTER by MAYRA DANG Intake Chief Complaint : Check ears Temperature Core : 36.9 DegC(Converted to: 98.4 DegF) Peripheral Pulse Rate : 64 /min Respiratory Rate : 16 /min Systolic Blood Pressure : 120 mmHg Diastolic Blood Pressure : 76 mmHg NIBP Mean : 91 mmHg BP Location : Right upper extremity Blood Pressure Cuff Size : Regular Height : 172 cm(Converted to: 5 ft 8 inch(es), 67.72 inch(es)) Actual Weight : 88 kg(Converted to: 194 lb 0 oz) Dosing Weight Clinic : 88 kg Clinic BSA : 2.05 Body Mass Index : 29.75 kg/m2 MAYRA DANG - 04/09/2013 9:39 SALES HUNTER General Info Languages : Turkish MAYRA DANG - 04/09/2013 9:39 SALES HUNTER Subjective Pain Symptoms : No MAYRA DANG - 04/09/2013 9:39 SALES HUNTER Dependent Habits Tobacco Use/Currently Using : No Smoking Status : Former smoker MAYRA DANG - 04/09/2013 9:39 SALES HUNTER Caffeine Use Grid Caffeine Use : Current Type : Chocolate, Tea Frequency : Occasionally MAYRA DANG - 04/09/2013 9:39 SALES HUNTER Recreational Drug Use Grid Drug Use : None MAYRA DANG 04/09/2013 9:39 SALES HUNTER [facility] Document Id: [id number] SALES HUNTER!31 documented in this encounter Plan of Treatment Upcoming Encounters Date Type Specialty Care Team Description 03/25/2022 Office Visit Family Medicine Leslie Gonzalez M.D. [address] [place] [address] [phone] (Wo rk) documented as of this encounter Visit Diagnoses Not on filedocumented in this encounter
--- OUTSIDE RECORDS SUMMARY | 2022-03-22 15:50 | XMS_ITS | Encounter Summary ---
:1950 Author Organization [facility] Address [address] [place] [address] Care Team Providers Name Role Phone Unavailable Primary Care Provider Unavailable Encounter Details Date Type Department Care Team Description 03/15/2014 Hospital Encounter HX [facility] PMTR Ken Dalton M.D. [address] [place] [address], [address] [place], [place] [phone] (Wo rk) Social History Tobacco Use Types Packs/Day Years Used Date Smoking Tobacco: Never Assessed Alcohol Habits Answer Date Recorded How often do you have a drink containing 4 or more times a w [place] 10/05/2021 alcohol? How many drinks containing alcohol [...] or relatives? How often do you attend temple or 1 to 4 times per year 07/2021 restorationism services? Do you belong to any clubs or Yes 10/05/2021 organizations such as temple groups, unions, fraternal or athletic groups, or [...] or slept in a long-term (including now)? Sex Assigned at Date Recorded Female 03/07/2018 9:31 AM CDT documented as of this encounter Last Filed Vital Signs Vital Sign Reading Time Taken Comments Blood Pressure 128/68 03/15/2014 8:43 AM CDT Pulse - - Temperature - - Respiratory Rate - - Oxygen Saturation - - Inhaled Oxygen Concentration - - Weight 88.3 kg (194 lb 10.7 oz) 03/15/2014 8:43 AM CDT Height 168 cm (5' 6.14) 03/15/2014 8:43 AM CDT Body Mass Index 31.29 03/15/2014 8:43 AM CDT documented in this encounter Medications [...] encounter Progress Notes Charito Dalton M.D. - 03/15/2014 8:26 AM CDT [id number] CHIEF COMPLAINT/REASON FOR VISIT Followup low back and bilateral lower extremity pain. HISTORY OF PRESENT ILLNESS Ms. Simmons returns today in followup. She had an MRI of her lumbar spine performed on March 05, 2014. I reviewed the images with her in detail. Significant findings include multilevel degenerative changes. At L4-L5, there is marked bilateral facet arthropathy and marked central canal stenosis, which is increased from previous study from December 10, 2011. There is moderate bilateral foraminal stenosis at L4-L5. At L5-S1, there is marked left and moderate right facet arthropathy resulting in mild tomoderate left foraminal stenosis. There is mild lumbar scoliosis convex to the left. Ms. Simmons's symptoms are not changed since I saw her just previous to the MRI. PHYSICAL EXAMINATION None performed today. IMPRESSION/REPORT/PLAN 1. Low back and left greater than right lower extremity pain. 2. Lumbar spinal stenosis. 3. Lumbar spondylosis. 4. Small fiber peripheral neuropathy. Ms. Simmons's symptoms as well as her previous examination and MRI findings are all consistent withpseudoclaudication. She does have more significant pain in the left gluteal region, posterior lateral thigh and posterior lateral leg which would correlate with a left L5 radiculopathy. She does have marked foraminal stenosis on the left at L5-S1. PLAN: 1. Ms. Simmons has unfortunately not received much benefit from the paramedian left L4-L5 interlaminar epidural corticosteroid injection that she has had previously which has been helpful for her. Shehas met with a spine surgeon previously and would like to try to avoid surgery for as long as possible. Therefore, we discussed other options including the possibility of proceeding with a left L5 transforaminal epidural corticosteroid injection. The majority of her pain now in the left L5 distribution. Ms. Simmons would like to proceed with that. We will arrange for that to occur at the first available time. 2. I will plan on seeing Ms. Simmons back 2 weeks following the left L5 transforaminal epidural corticosteroid injection, and she knows to be in contact with me prior to that time if she notes any worsening or worrisome symptoms, which we went over in detail today. Ms. Simmons voiced agreement and un derstanding of this plan. Charito Dalton M.D./kyleigh Electronically Signed By: CHARITO DALTON MD On: 03/18/2014 03:16 PM Modified by and Electronically Signed by: CHARITO DALTON MD On: 03/18/2014 03:16 PM Source: [facility] MHSDOLBEYNONRADSYS Document Id: [id number] documented in this encounter Miscellaneous Notes Miscellaneous - Charito Dalton M.D. - 03/15/2014 9:07 AM CDT Ambulatory Patient Summary [address] [id number] Visit Information Name: MAYRA SIMMONS [facility] Number: [id number] Current Date: 03/15/2014 09:07:56 Physicians Attending Provider: CHARITO DALTON MD Primary Care Provider: PCP, UNASSIGNED - FB MAYRA SIMMONS has been given the following [...] a day aspirin (aspirin 325 mg oral delayed release tablet) 1 Tablet(s), Oral, once a day atorvastatin (Lipitor 40 mg oral tablet) 1 Tablet(s), Oral, once a day (at bedtime) bifidobacterium infantis (Align 4 mg oral capsule) 1 cap, Oral, once a day bilberry (bilberry) See Instructions Takes 1 cap daily calcium-vitamin D (Calcium 600+D) Oral, two times a day glucosamine-chondroitin (glucosamine-chondroitin) once a day Misc Prescription (Misc Prescription) [...] a day. pantoprazole (Protonix 40 mg oral enteric coated tablet) 1 Tablet(s), Oral, two times a day senna (senna 8.6 mg oral tablet) 1 Tablet(s), Oral, two times a day as needed for constipation Stop Taking the Following Medications: Medication list as of 03-15-14 09:07 Attention: If you have any medications at [...] Electronically Signed By: CHARITO DALTON MD Signed On:15-MAR-2014 09:07:21 Your Allergies & Intolerances Substance Reaction Symptoms [...] appointment detail needed. Your Goals/Additional instructions: Source: [facility] POWERCHART Document Id: [id number] Miscellaneous - Charito Dalton M.D. - 03/15/2014 9:07 AM CDT Ambulatory Discharge Medication List [address] [id number] Visit Information Name: MAYRA SIMMONS [facility] Number: [id number] Visit Date: 03/15/2014 09:07:54 Attending Provider: CHARITO DALTON MD Primary Care Provider: PCP, UNASSIGNED - MAYRA JIMÉNEZ has been given the following list of [...] a day aspirin (aspirin 325 mg oral delayed release tablet) 1 Tablet(s), Oral, once a day atorvastatin (Lipitor 40 mg oral tablet) 1 Tablet(s), Oral, once a day (at bedtime) bifidobacterium infantis (Align 4 mg oral capsule) 1 cap, Oral, once a day bilberry (bilberry) See Instructions Takes 1 cap daily calcium-vitamin D (Calcium 600+D) Oral, two times a day glucosamine-chondroitin (glucosamine-chondroitin) once a day Misc Prescription (Misc Prescription) [...] a day. pantoprazole (Protonix 40 mg oral enteric coated tablet) 1 Tablet(s), Oral, two times a day senna (senna 8.6 mg oral tablet) 1 Tablet(s), Oral, two times a day as needed for constipation Stop Taking the Following Medications: Medication list as of 03-15-14 09:07 Attention: If you have any medications at [...] Electronically Signed By: CHARITO DALTON MD Signed On:15-MAR-2014 09:07:21 Additional Information: Source: [facility] POWERCHART Document Id: [id number] Miscellaneous - Evonvanessa Elzbieta Jurado - 03/15/2014 8:43 AM CDT Adult Rn Dialysis Intake/History Adult Rn Dialysis Intake/History Entered On: 03/15/2014 8:44 CDT Performed On: 03/15/2014 8:43 CDT by ELZBIETA RODRIGUEZ Intake Systolic Blood Pressure : 128 mmHg Diastolic Blood Pressure : 68 mmHg NIBP Mean : 88 mmHg BP Location : Left upper extremity Blood Pressure Cuff Size : Regular Height : 168 cm(Converted to: 5 ft 6 inch(es), 66 inch(es)) Actual Weight : 88.3 kg(Converted to: 194 lb 11 oz) Weight Source : Standing scale Dosing Weight Clinic : 88.3 kg Clinic BSA : 2.03 Body Mass Index : 31.29 kg/m2 ELZBIETA RODRIGUEZ - 03/15/2014 8:43 CDT General Info Information Given By : Patient Preferred Communication Mode : Verbal Languages : Tunisian Is Patient Female and 13-50 no hysterectomy : No ELZBIETA RODRIGUEZ M - 03/15/2014 8:43 CDT Subjective Pain Symptoms : No ELZBIETA RODRIGUEZ M - 03/15/2014 8:43 CDT Dependent Habits Tobacco Use/Currently Using : No Exposure to Tobacco Smoke : Other: quit 03/1994 Smoking Status : Former smoker ELZBIETA RODRIGUEZ - 03/15/2014 8:43 CDT Caffeine Use Grid Caffeine Use : Current Type : Chocolate, Soft drinks, Tea Frequency : Occasionally ELZBIETA RODRIGUEZ - 03/15/2014 8:43 CDT Recreational Drug Use Grid Drug Use : None ELZBIETA RODRIGUEZ - 03/15/2014 8:43 CDT Source: [facility] POWERCHART Document Id: [id number] CDT!32 documented in this encounter Plan of Treatment Upcoming Encounters Date Type Specialty Care Team Description 03/25/2022 Office Visit Family Medicine Leslie Gonzalez M.D. [address] [place] [address] [phone] (Wo rk) documented as of this encounter Visit Diagnoses Not on filedocumented in this encounter
--- OUTSIDE RECORDS SUMMARY | 2022-03-22 15:50 | XMS_ITS | Encounter Summary ---
:1950 Author Organization [facility] Address [address] [place] [address] Care Team Providers Name Role Phone Unavailable Primary Care Provider Unavailable Encounter Details Date Type Department Care Team Description 06/25/2014 Hospital Encounter HX [facility] Gwen Wilson M.D. [address], [place] [address] (Wo rk) Social History Tobacco Use Types Packs/Day Years Used Date Smoking Tobacco: Never Assessed Alcohol Habits Answer Date Recorded How often do you have a drink containing 4 or more times a w te-moak 10/05/2021 alcohol? How many drinks containing alcohol [...] or relatives? How often do you attend baptist or 1 to 4 times per year 07/2021 protestant services? Do you belong to any clubs or Yes 10/05/2021 organizations such as baptist groups, unions, fraternal or athletic groups, or [...] Sign Reading Time Taken Comments Blood Pressure 100/60 06/25/2014 10:04 AM MANAGER [employer] Pulse 72 06/25/2014 10:04 AM [employer]NAGER [employer] Temperature - - Respiratory Rate - - Oxygen Saturation - - Inhaled Oxygen Concentration - - Weight 90.4 kg (199 lb 4.7 oz) 06/25/2014 10:04 AM MANAGER [employer] Height 168 cm (5' 6.14) 06/25/2014 10:04 AM MANAGER BIOLOGICS Body Mass Index 32.03 06/25/2014 10:04 AM MANAGER [employer] documented in this encounter Medications at Time [...] documented as of this encounter Progress Notes Abilio Wilson M.D. - 06/25/2014 10:00 AM CST [id number] Patient is a 64-year-old female who has had a 3-day history of prominent sore throat pain.She denies fever but has a nonproductive cough. In retrospect, she has had upper respiratory symptoms for almost 3 weeks now, though they had seemed to resolve though not totally resolve about week ago. Past medical, past surgical, family medical history, as well as current medications and drug allergies are as so noted, reviewed with patient and updated in the electronic medical record. SYSTEMS REVIEW GENERAL: Aside from the aforementioned complaint in the history of present illness, patient believesherself to be at baseline state of health. Specific review of systems including eyes, pulmonary, cardiovascular, gastrointestinal, neurologic, musculoskeletal, urologic, and psychiatric review of systems are negative. Regarding ear, nose, throat review of systems is as per the aforementioned history of present illness. VITAL SIGNS Patient afebrile at 36.7 degrees centigrade, heart rate 72 beats per minute and regular. Blood pressure 100/60 for this patient standing at 168 cm, weighing 90.4 kg. PHYSICAL EXAMINATION HEENT: Head normocephalic and atraumatic. There is no frontal or maxillary sinus tenderness. Posterior oropharyngeal airway is unobstructed. There is a moderate amount of clear postnasal drip visualized, though the posterior oropharyngeal airway is otherwise unremarkable for any striking erythema. NECK: Supple. There is no gross jugular venous distention. There is no discernible adenopathy. CHEST: Lungs are clear to auscultation bilaterally without any wheezes or rales. HEART: Regular rate and rhythm. ABDOMEN: Soft, nontender, nondistended. EXTREMITIES: No clubbing, cyanosis, or edema. NEUROLOGIC: Patient aware and oriented x3. Cranial nerves II through XII grossly intact and nonfocal. DIAGNOSTICS Rapid strep test for patient is negative. IMPRESSION/REPORT/PLAN A 64-year-old female with the following active medical findings: Upper respiratory infection x3 weeks. After discussion of risks and benefits, patient accepts prescription for Zithromax per EMR order. She is also advocated to use Benadryl at bedtime as an adjunct for therapy to dry up her postnasal drip without causing problems with sedation. She is encouraged to hydrate vigorously. She will follow up as needed. Abilio Wilson M.D./kyleigh Electronically Signed By: ABILIO WILSON MD On: 06/25/2014 02:06 PM Source: [facility] MHSDOLCARLOSYNWESTS Document Id: [id number] [employer] documented in this encounter Nursing Notes Abilio Wilson M.D. - 06/25/2014 10:40 AM CST Ambulatory Patient Education The following Patient Education Materials have been given to the patient: Patient Education Materials: Otolaryngology When You Have a Sore Throat Otolaryngology When You Have a Sore Throat A sore throat can be painful. There are many reasons why you may have a sore throat. Your healthcareprovider will work with you to find the cause of your sore throat. He or she will also find the besttreatment for you. What Causes a Sore Throat? Sore throats can be caused or worsened by: ?? Cold or flu viruses ?? Bacteria ?? Irritants such as tobacco smoke ?? Acid reflux A Healthy Throat The tonsils are on the sides of the throat near the base of the tongue. They collect viruses and bacteria and help fight infection. The throat (pharynx) is the passage for air. Mucus from the nasal cavity also moves down the passage. An Inflamed Throat The tonsils and pharynx can become inflamed due to a cold or flu virus. Postnasal drip (excess mucusdraining from the nasal cavity) can irritate the throat. It can also make the throat or tonsils morelikely to be infected by bacteria. Severe, untreated tonsillitis in children or adults can cause a pocket of pus (abscess) to form near the tonsil. Your Evaluation A medical evaluation can help find the cause of your sore throat. It can also help your healthcare provider choose the best treatment for you. The evaluation may include a health history, physical exam, and diagnostic tests. Health History Your healthcare provider may ask you the following: ?? How long has the sore throat lasted and how have you been treating it? ?? Do you have any other symptoms, such as body aches, fever, or cough? ?? Does your sore throat recur? If so, how often? How many days of school or work have you missed because of a sore throat? ?? Do you have trouble eating or swallowing? ?? Have you been told that you snore or have other sleep problems? ?? Do you have bad breath? ?? Do you cough up bad-tasting mucus? Physical Exam During the exam, your healthcare provider checks your ears, nose, and throat for problems. He or shealso checks for swelling in the neck, and may listen to your chest. Possible Tests Other tests your healthcare provider may perform include: ?? A throat swab to check for streptococcus (the bacteria that causes strep throat) ?? A blood test to check for mononucleosis (a viral infection) ?? A chest x-ray to rule out pneumonia, especially if you have a cough Treating a Sore Throat Treatment depends on many factors. What is the likely cause? Is the problem recent? Does it keep coming back? In many cases, the best thing to do is to treat the symptoms, rest, and let the problem heal itself. Antibiotics may help clear up some infections. For cases of severe or recurring tonsillitis, the tonsils may need to be removed. Relieving Your Symptoms Dont smoke, and avoid secondhand smoke. For children, try throat sprays or Popsicles. Adults and older children may try lozenges. Drink warm liquids to soothe the throat and help thin mucus. Avoid alcohol, spicy foods, and acidic drinks such as orange juice. These can irritate the throat. Gargle with warm saltwater (1 teaspoon of salt to 8 ounces of warm water). Use a humidifier to keep air moist and relieve throat dryness. Try enbw-pps-vispruh pain relievers such as acetaminophen or ibuprofen. Use as directed, and dont exceed the recommended dose. Dont give aspirin to children. Are Antibiotics Needed? If your sore throat is due to a bacterial infection, antibiotics may speed healing and prevent complications. But most sore throats are caused by cold or flu viruses. And antibiotics dont treat viral illness. In fact, using antibiotics when theyre not needed may produce bacteria that are harder to kill. Your healthcare provider will prescribe antibiotics only if he or she thinks they are likely to help. If Antibiotics Are Prescribed Take the medication exactly as directed. Be sure to finish your prescription even if youre feeling better. And be sure to ask your healthcare provider or pharmacist what side effects are common and what to do about them. Is Surgery Needed? In some cases, tonsils need to be removed. This is often done as outpatient (same-day) surgery. Yourhealthcare provider may advise removing the tonsils in cases of: ?? Several severe bouts of tonsillitis in a year. Severe episodes include those that lead to missed days of school or work, or that need to be treated with antibiotics. ?? Tonsillitis that causes breathing problems during sleep. ?? Tonsillitis caused by food particles collecting in pouches in the tonsils (cryptic tonsillitis). Call your healthcare provider if any of the following occur: Symptoms worsen, or new symptoms develop. Swollen tonsils make breathing difficult. A skin rash, hives, or wheezing develops. Any of these could signal an allergic reaction to antibiotics. Symptoms dont improve within a week. Symptoms dont improve within 2-3 days of starting antibiotics. ?? [id number] [place] [address]. All rights reserved. This information is not intended as a substitute for professional medical care. Always follow your healthcare professional's instructions. This document has images extracted. Please consider using Subimage for all your patient education needs. Source: [facility] POWERCHART Document Id: [id number] [employer] Abilio Wilson M.D. - 06/25/2014 10:39 AM CST Ambulatory Patient Education The following Patient Education Materials have been given to the patient: Patient Education Materials: Otolaryngology When You Have a Sore Throat Otolaryngology When You Have a Sore Throat A sore throat can be painful. There are many reasons why you may have a sore throat. Your healthcareprovider will work with you to find the cause of your sore throat. He or she will also find the besttreatment for you. What Causes a Sore Throat? Sore throats can be caused or worsened by: ?? Cold or flu viruses ?? Bacteria ?? Irritants such as tobacco smoke ?? Acid reflux A Healthy Throat The tonsils are on the sides of the throat near the base of the tongue. They collect viruses and bacteria and help fight infection. The throat (pharynx) is the passage for air. Mucus from the nasal cavity also moves down the passage. An Inflamed Throat The tonsils and pharynx can become inflamed due to a cold or flu virus. Postnasal drip (excess mucusdraining from the nasal cavity) can irritate the throat. It can also make the throat or tonsils morelikely to be infected by bacteria. Severe, untreated tonsillitis in children or adults can cause a pocket of pus (abscess) to form near the tonsil. Your Evaluation A medical evaluation can help find the cause of your sore throat. It can also help your healthcare provider choose the best treatment for you. The evaluation may include a health history, physical exam, and diagnostic tests. Health History Your healthcare provider may ask you the following: ?? How long has the sore throat lasted and how have you been treating it? ?? Do you have any other symptoms, such as body aches, fever, or cough? ?? Does your sore throat recur? If so, how often? How many days of school or work have you missed because of a sore throat? ?? Do you have trouble eating or swallowing? ?? Have you been told that you snore or have other sleep problems? ?? Do you have bad breath? ?? Do you cough up bad-tasting mucus? Physical Exam During the exam, your healthcare provider checks your ears, nose, and throat for problems. He or shealso checks for swelling in the neck, and may listen to your chest. Possible Tests Other tests your healthcare provider may perform include: ?? A throat swab to check for streptococcus (the bacteria that causes strep throat) ?? A blood test to check for mononucleosis (a viral infection) ?? A chest x-ray to rule out pneumonia, especially if you have a cough Treating a Sore Throat Treatment depends on many factors. What is the likely cause? Is the problem recent? Does it keep coming back? In many cases, the best thing to do is to treat the symptoms, rest, and let the problem heal itself. Antibiotics may help clear up some infections. For cases of severe or recurring tonsillitis, the tonsils may need to be removed. Relieving Your Symptoms Dont smoke, and avoid secondhand smoke. For children, try throat sprays or Popsicles. Adults and older children may try lozenges. Drink warm liquids to soothe the throat and help thin mucus. Avoid alcohol, spicy foods, and acidic drinks such as orange juice. These can irritate the throat. Gargle with warm saltwater (1 teaspoon of salt to 8 ounces of warm water). Use a humidifier to keep air moist and relieve throat dryness. Try lrcz-hrk-xewatoh pain relievers such as acetaminophen or ibuprofen. Use as directed, and dont exceed the recommended dose. Dont give aspirin to children. Are Antibiotics Needed? If your sore throat is due to a bacterial infection, antibiotics may speed healing and prevent complications. But most sore throats are caused by cold or flu viruses. And antibiotics dont treat viral illness. In fact, using antibiotics when theyre not needed may produce bacteria that are harder to kill. Your healthcare provider will prescribe antibiotics only if he or she thinks they are likely to help. If Antibiotics Are Prescribed Take the medication exactly as directed. Be sure to finish your prescription even if youre feeling better. And be sure to ask your healthcare provider or pharmacist what side effects are common and what to do about them. Is Surgery Needed? In some cases, tonsils need to be removed. This is often done as outpatient (same-day) surgery. Yourhealthcare provider may advise removing the tonsils in cases of: ?? Several severe bouts of tonsillitis in a year. Severe episodes include those that lead to missed days of school or work, or that need to be treated with antibiotics. ?? Tonsillitis that causes breathing problems during sleep. ?? Tonsillitis caused by food particles collecting in pouches in the tonsils (cryptic tonsillitis). Call your healthcare provider if any of the following occur: Symptoms worsen, or new symptoms develop. Swollen tonsils make breathing difficult. A skin rash, hives, or wheezing develops. Any of these could signal an allergic reaction to antibiotics. Symptoms dont improve within a week. Symptoms dont improve within 2-3 days of starting antibiotics. ?? [id number] Lu[employer] Quintana, [address] [place] [address], [place] [address]. All rights reserved. This information is not intended as a substitute for professional medical care. Always follow your healthcare professional's instructions. This document has images extracted. Please consider using Subimage for all your patient education needs. Source: [facility] POWERCHART Document Id: [id number] [employer] documented in this encounter Miscellaneous Notes Miscellaneous - Abilio Wilson M.D. - 06/25/2014 10:40 AM CST Ambulatory Patient Summary [place] [id number] [facility] [place] [id number] Visit Information Name: STEPH SIMMONS [facility] Number: [id number] Current Date: 06/25/2014 10:40:10 Physicians Attending Provider: ABILIO WILSON MD Primary Care Provider: JOSTIN HERNANDEZ PA-C STEPH SIMMONS has been given the following list of follow-up instructions, medication list, and patient education materials: Follow-up Instructions With: Address: When: Follow up with primary care provider Comments: Your Medications Here is a list of [...] Oral, once a day (at bedtime) azithromycin (azithromycin 250 mg oral tablet) 2 tablets on day 1, then 1 tablet on days 2-5, Oral, as directed x 5 day(s) New Routed to [address] [place], [place] [id number] bifidobacterium infantis (Align 4 mg oral capsule) [...] the Following Medications: Medication list as of 06-25-14 10:40 Attention: If you have any medications at home that are not on this list, DO NOT take them until youcontact your provider for clarification. Give a copy of your medication list to your primary care provider. Update your medication list any time medications or doses are changed and carry your medication list at all times in case of emergency. Electronically Signed By: ABILIO WILSON MD Signed On:25-JUN-2014 10:39:35 Your Allergies & Intolerances Substance Reaction Symptoms [...] local Clinic if further appointment detail needed. When You Have a Sore Throat A sore throat can be painful. There are many reasons why you may have a sore throat. Your healthcareprovider will work with you to find the cause of your sore throat. He or she will also find the besttreatment for you. What Causes a Sore Throat? Sore throats can be caused or worsened by: ?? Cold or flu viruses ?? Bacteria ?? Irritants such as tobacco smoke ?? Acid reflux A Healthy Throat The tonsils are on the sides of the throat near the base of the tongue. They collect viruses and bacteria and help fight infection. The throat (pharynx) is the passage for air. Mucus from the nasal cavity also moves down the passage. An Inflamed Throat The tonsils and pharynx can become inflamed due to a cold or flu virus. Postnasal drip (excess mucusdraining from the nasal cavity) can irritate the throat. It can also make the throat or tonsils morelikely to be infected by bacteria. Severe, untreated tonsillitis in children or adults can cause a pocket of pus (abscess) to form near the tonsil. Your Evaluation A medical evaluation can help find the cause of your sore throat. It can also help your healthcare provider choose the best treatment for you. The evaluation may include a health history, physical exam, and diagnostic tests. Health History Your healthcare provider may ask you the following: ?? How long has the sore throat lasted and how have you been treating it? ?? Do you have any other symptoms, such as body aches, fever, or cough? ?? Does your sore throat recur? If so, how often? How many days of school or work have you missed because of a sore throat? ?? Do you have trouble eating or swallowing? ?? Have you been told that you snore or have other sleep problems? ?? Do you have bad breath? ?? Do you cough up bad-tasting mucus? Physical Exam During the exam, your healthcare provider checks your ears, nose, and throat for problems. He or shealso checks for swelling in the neck, and may listen to your chest. Possible Tests Other tests your healthcare provider may perform include: ?? A throat swab to check for streptococcus (the bacteria that causes strep throat) ?? A blood test to check for mononucleosis (a viral infection) ?? A chest x-ray to rule out pneumonia, especially if you have a cough Treating a Sore Throat Treatment depends on many factors. What is the likely cause? Is the problem recent? Does it keep coming back? In many cases, the best thing to do is to treat the symptoms, rest, and let the problem heal itself. Antibiotics may help clear up some infections. For cases of severe or recurring tonsillitis, the tonsils may need to be removed. Relieving Your Symptoms Dont smoke, and avoid secondhand smoke. For children, try throat sprays or Popsicles. Adults and older children may try lozenges. Drink warm liquids to soothe the throat and help thin mucus. Avoid alcohol, spicy foods, and acidic drinks such as orange juice. These can irritate the throat. Gargle with warm saltwater (1 teaspoon of salt to 8 ounces of warm water). Use a humidifier to keep air moist and relieve throat dryness. Try pfzl-mbs-bvkcfbj pain relievers such as acetaminophen or ibuprofen. Use as directed, and dont exceed the recommended dose. Dont give aspirin to children. Are Antibiotics Needed? If your sore throat is due to a bacterial infection, antibiotics may speed healing and prevent complications. But most sore throats are caused by cold or flu viruses. And antibiotics dont treat viral illness. In fact, using antibiotics when theyre not needed may produce bacteria that are harder to kill. Your healthcare provider will prescribe antibiotics only if he or she thinks they are likely to help. If Antibiotics Are Prescribed Take the medication exactly as directed. Be sure to finish your prescription even if youre feeling better. And be sure to ask your healthcare provider or pharmacist what side effects are common and what to do about them. Is Surgery Needed? In some cases, tonsils need to be removed. This is often done as outpatient (same-day) surgery. Yourhealthcare provider may advise removing the tonsils in cases of: ?? Several severe bouts of tonsillitis in a year. Severe episodes include those that lead to missed days of school or work, or that need to be treated with antibiotics. ?? Tonsillitis that causes breathing problems during sleep. ?? Tonsillitis caused by food particles collecting in pouches in the tonsils (cryptic tonsillitis). Call your healthcare provider if any of the following occur: Symptoms worsen, or new symptoms develop. Swollen tonsils make breathing difficult. A skin rash, hives, or wheezing develops. Any of these could signal an allergic reaction to antibiotics. Symptoms dont improve within a week. Symptoms dont improve within 2-3 days of starting antibiotics. ?? [id number] Luz Maria Quintana, [address] [place] [address], [place] [address]. All rights reserved. This information is not intended as a substitute for professional medical care. Always follow your healthcare professional's instructions. Your Goals/Additional instructions: This document has images extracted. Please consider using Subimage for all your patient education needs. Source: [facility] POWERCHART Document Id: [id number] [employer] Miscellaneous - Abilio Wilson M.D. - 06/25/2014 10:40 AM CST Ambulatory Discharge Medication List [address] [id number] Visit Information Name: STEPH SIMMONS [facility] Number: [id number] Visit Date: 06/25/2014 10:40:08 Attending Provider: ABILIO WILSON MD Primary Care Provider: JOSTIN HERNANDEZ PA-C [...] Oral, once a day (at bedtime) azithromycin (azithromycin 250 mg oral tablet) 2 tablets on day 1, then 1 tablet on days 2-5, Oral, as directed x 5 day(s) New Routed to [address] [facility] [place] [id number] bifidobacterium infantis (Align 4 mg oral capsule) [...] the Following Medications: Medication list as of 06-25-14 10:40 Attention: If you have any medications at home that are not on this list, DO NOT take them until youcontact your provider for clarification. Give a copy of your medication list to your primary care provider. Update your medication list any time medications or doses are changed and carry your medication list at all times in case of emergency. Electronically Signed By: ABILIO WILSON MD Signed On:25-JUN-2014 10:39:35 Additional Information: Source: [facility] POWERCHART Document Id: [id number] [facility] Miscellaneous - Bi Summers L.P.N. - 06/25/2014 10:04 AM CST Adult Community Midwife Intake/History Adult Community Midwife Intake/History Entered On: 06/25/2014 10:06 [employer]NAGER [employer] Performed On: 06/25/2014 10:04 MANAGER BIOLOGICS by BI SUMMERS Intake Chief Complaint : sore throat, runny nose, dry cough Onset of Symptoms : Yesterday Temperature Core : 36.7 DegC(Converted to: 98.1 DegF) Peripheral Pulse Rate : 72 /min Heart Rhythm : Regular Systolic Blood Pressure : 100 mmHg Diastolic Blood Pressure : 60 mmHg NIBP Mean : 73 mmHg BP Location : Left upper extremity Blood Pressure Cuff Size : Large Height : 168 cm(Converted to: 5 ft 6 inch(es), 66 inch(es)) Actual Weight : 90.4 kg(Converted to: 199 lb 5 oz) Weight Source : Standing scale Dosing Weight Clinic : 90.4 kg Clinic BSA : 2.05 Body Mass Index : 32.03 kg/m2 BI SUMMERS - 06/25/2014 10:04 MANAGER BIOLOGICS General Info Information Given By : Patient Preferred Communication Mode : Verbal Languages : [place] Is Patient Female and 13-50 no hysterectomy : No BI SUMMERS - 06/25/2014 10:04 MANAGER BIOLOGICS Subjective Pain Symptoms : Yes BI SUMMERS - 06/25/2014 10:04 MANAGER BIOLOGICS Pain Scale Pain Scale Verbal 0-10 : Open BI SUMMERS - 06/25/2014 10:04 MANAGER BIOLOGICS Pain Pain Assessment Grid Pain 1 Location : Throat Laterality : Bilateral BI SUMMERS - 06/25/2014 10:04 MANAGER BIOLOGICS Dependent Habits Tobacco Use/Currently Using : No Exposure to Tobacco Smoke : Other: quit 03/1994 Smoking Status : Former smoker BI SUMMERS - 06/25/2014 10:04 MANAGER BIOLOGICS Caffeine Use Grid Caffeine Use : Current Type : Chocolate, Soft drinks, Tea Frequency : Occasionally BI SUMMERS - 06/25/2014 10:04 MANAGER BIOLOGICS Recreational Drug Use Grid Drug Use : None BI SUMMERS - 06/25/2014 10:04 MANAGER BIOLOGICS ID Screen Drug Resistant Organism : No Travel Within Last 21 Days : No BI SUMMERS - 06/25/2014 10:04 MANAGER BIOLOGICS Source: [facility] ProtonMediaCHART Document Id: [id number] MANAGER BIOLOGICS!47 GER BIOLOGICS documented in this encounter Plan of Treatment Upcoming Encounters Date Type Specialty Care Team Description 03/25/2022 Office Visit Family Medicine Leslie Gonzalez M.D. [address] [place] [address] [phone] (Wo rk) documented as of this encounter Procedures Procedure Name Priority Date/Time Associated Diagnosis Comme nts RAPID STREP A Routine 06/25/2014 10:10 AM Results for this SCREEN MANAGER BIOLOGICS procedure are i n the results section. RAPID STREP A Routine 06/25/2014 10:10 AM Results for this SCREEN MANAGER BIOLOGICS procedure are i n the results section. documented in this encounter Results Rapid Strep A Screen (06/25/2014 10:10 AM MANAGER BIOLOGICS) [facility] Method Time Signature HXRapid Strep POWERCHART Confirmation HXPre Negative for POWERCHART Group A Strep by culture. HXFinal Negative for POWERCHART Group A Strep by culture. Specimen Anatomical Collection Method Collection Time Receive d Time (Source) Location / / Volume Laterality Throat 06/25/2014 10:10 06/25/2014 AM MANAGER BIOLOGICS 10:10 AM MANAGER BIOLOGICS Abilio Wilson M.D. LAB MICROBIOLOGY - GENERAL O RDERABLES Performing Organization Address City/[facility] Code Phon e Number POWERCHART Rapid Strep A Screen (06/25/2014 10:10 AM MANAGER BIOLOGICS) [facility] Method Time Signature HXStrep A POWERCHART Screen Rapid HXFinal Negative for POWERCHART Strep Group A by rapid screen. HXFinal Culture POWERCHART confirmation to follow. Specimen (Source) Anatomical Collection Method Collection Time Re ceived Time Location / / Volume Laterality Throat 06/25/2014 10:10 AM MANAGER BIOLOGICS Abilio Wilson M.D. LAB MICROBIOLOGY - GENERAL O RDIAN Performing Organization Address City/[facility] Code Phon e Number POWERCHART documented in this encounter Visit Diagnoses Not on filedocumented in this encounter
--- OUTSIDE RECORDS SUMMARY | 2022-03-22 15:50 | XMS_ITS | Encounter Summary ---
:1950 Author Organization [facility] Address [address] [place] [address] Care Team Providers Name Role Phone Unavailable Primary Care Provider Unavailable Encounter Details Date Type Department Care Team Description 07/02/2013 Hospital Encounter HX [facility] FB FAMILYPRA Rolanda Serna M.D. Social History Tobacco Use Types Packs/Day Years Used Date Smoking Tobacco: Never Assessed Alcohol Habits Answer Date Recorded How often do you have a drink containing 4 or more times a w [place] 10/05/2021 alcohol? How many drinks containing alcohol [...] or relatives? How often do you attend rastafarian or 1 to 4 times per year 07/2021 holiness services? Do you belong to any clubs or Yes 10/05/2021 organizations such as rastafarian groups, unions, fraternal or athletic groups, or [...] Sign Reading Time Taken Comments Blood Pressure 144/80 07/02/2013 10:40 AM TYPEWRITER ALIGNER Pulse 68 07/02/2013 10:36 AM TYPEWRITER ALIGNER Temperature - - Respiratory Rate 18 07/02/2013 10:36 AM TYPEWRITER ALIGNER Oxygen Saturation - - Inhaled Oxygen Concentration - - Weight 90 kg (198 lb 6.6 oz) 07/02/2013 10:36 AM TYPEWRITER ALIGNER Height 169 cm (5' 6.54) 07/02/2013 10:36 AM TYPEWRITER ALIGNER Body Mass Index 31.51 07/02/2013 10:36 AM TYPEWRITER ALIGNER documented in this encounter Medications at Time [...] encounter Progress Notes Pawel Serna M.D. - 07/02/2013 10:30 AM CST [id number] CHIEF COMPLAINT/REASON FOR VISIT Sore throat for the last 8 days. HISTORY OF PRESENT ILLNESS This 63-year-old female patient has been sick for the last week with sore throat, stuffy nose, back hurts when she coughs. She did not have a flu shot. Had lost her voice. Today her ear is runny and she is dizzy with bending over. Taste and smell have been normal. Cough has been deep. EMR record reviewed and updated. RESPIRATORY: No cough or shortness of breath. [...] hemorrhage or exudate; lids normal. ENT: Ears: TMs clear; external auditory canals clear. Throat mild erythema. Tongue normal. Teeth normal. Nares inflamed and congested. LYMPH NODES: Neck: no lymphadenopathy. THYROID: Normal size, symmetric. HEART: No murmur, gallop or rub; normal size; PMI arteries normal. LUNGS: Coarse breath sounds. ABDOMEN: No masses, no organomegaly, nontender; normal to inspection, percussion and palpation; no distention. EXTREMITIES: Legs: no edema. IMPRESSION/REPORT/PLAN 1. Acute bronchitis. 2. Acute sinusitis. Recommend Zithromax 500 mg today, 250 mg daily for the next 4 days. Recheck in 2 weeks as needed. Pawel Serna M.D./mackenzie Electronically Signed By: PAWEL SERNA MD On: 07/03/2013 11:13 AM Source: [facility] MHSDOLBEYNONRADSYS Document Id: [id number] WRITER ALIGNER documented in this encounter Miscellaneous Notes Miscellaneous - Pawel Serna M.D. - 07/02/2013 11:13 AM CST Ambulatory Patient Summary [address] [id number] Visit Information Name: MAYRA SIMMONS [facility] Number: [id number] Current Date: 07/02/2013 11:13:05 Physicians Attending Provider: PAWEL SERNA MD Primary [...] once a day (at bedtime) azithromycin (Zithromax 250 mg oral tablet) 2 tablets on day 1, then 1 tablet on days 2-5, Oral, as directed x 5 day(s) New Routed to [address] [id number] bifidobacterium infantis (Align 4 mg oral capsule) [...] the Following Medications: Medication list as of 07-02-13 11:13 Attention: If you have any medications at home that are not on this list, DO NOT take them until youcontact your provider for clarification. Give a copy of your medication list to your primary care provider. Update your medication list any time medications or doses are changed and carry your medication list at all times in case of emergency. Your Allergies & Intolerances Substance Reaction Symptoms [...] appointment detail needed. Your Goals/Additional instructions: Source: [facility] POWERCHART Document Id: [id number] WRITER ALIGNER Miscellaneous - Pawel Serna M.D. - 07/02/2013 11:13 AM CST Ambulatory Depart Summary [address] [id number] Visit Information Name: MAYRA SIMMONS [facility] Number: [id number] Visit Date: 07/02/2013 11:13:02 Attending Provider: PAWEL SERNA MD Primary Care [...] once a day (at bedtime) azithromycin (Zithromax 250 mg oral tablet) 2 tablets on day 1, then 1 tablet on days 2-5, Oral, as directed x 5 day(s) New Routed to [address] [id number] bifidobacterium infantis (Align 4 mg oral capsule) [...] the Following Medications: Medication list as of 07-02-13 11:13 Attention: If you have any medications at home that are not on this list, DO NOT take them until youcontact your provider for clarification. Give a copy of your medication list to your primary care provider. Update your medication list any time medications or doses are changed and carry your medication list at all times in case of emergency. Additional Information: Source: [facility] POWERCHART Document Id: [id number] WRITER ALIGNER Miscellaneous - Conversion, Historical Provider Ser - 07/02/2013 10:40 AM TYPEWRITER ALIGNER Ambulatory Vitals Height Weight Ambulatory Vitals Height Weight Entered On: 07/02/2013 10:40 TYPEWRITER ALIGNER Performed On: 07/02/2013 10:40 TYPEWRITER ALIGNER by MAYRA DANG Vitals/Ht/Wt Systolic Blood Pressure : 144 mmHg (HI) Diastolic Blood Pressure : 80 mmHg NIBP Mean : 101 mmHg BP Location : Left upper extremity Blood Pressure Cuff Size : Large LAURENCEMAYRA Gogo - 07/02/2013 10:40 TYPEWRITER ALIGNER [facility] Document Id: [id number] TYPEWRITER ALIGNER!7 Miscellaneous - Conversion, Historical Provider Ser - 07/02/2013 10:36 AM TYPEWRITER ALIGNER Adult Java Sdet Intake/History Adult Java Sdet Intake/History Entered On: 07/02/2013 10:39 TYPEWRITER ALIGNER Performed On: 07/02/2013 10:36 TYPEWRITER ALIGNER by MAYRA DANG Intake Chief Complaint : Check throat, cough Temperature Core : 36.6 DegC(Converted to: 97.9 DegF) Peripheral Pulse Rate : 68 /min Respiratory Rate : 18 /min Systolic Blood Pressure : 152 mmHg (HI) Diastolic Blood Pressure : 82 mmHg NIBP Mean : 105 mmHg BP Location : Left upper extremity Blood Pressure Cuff Size : Large Height : 169 cm(Converted to: 5 ft 7 inch(es), 66.54 inch(es)) Actual Weight : 90 kg(Converted to: 198 lb 7 oz) Dosing Weight Clinic : 90 kg Clinic BSA : 2.06 Body Mass Index : 31.51 kg/m2 MAYRA DANG Gogo 07/02/2013 10:36 TYPEWRITER ALIGNER General Info Languages : Yakut MAYRA DANG Gogo 07/02/2013 10:36 TYPEWRITER ALIGNER Subjective Pain Symptoms : No LAURENCEMAYRA Gogo 07/02/2013 10:36 TYPEWRITER ALIGNER Dependent Habits Tobacco Use/Currently Using : No Smoking Status : Former smoker LAURENCEMAYRA 07/02/2013 10:36 TYPEWRITER ALIGNER Caffeine Use Grid Caffeine Use : Current Type : Chocolate, Soft drinks, Tea Frequency : Occasionally MAYRA DANG - 07/02/2013 10:36 TYPEWRITER ALIGNER Recreational Drug Use Grid Drug Use : None MAYRA DANG - 07/02/2013 10:36 TYPEWRITER ALIGNER Source: [facility] TapTrakCHART Document Id: [id number] TYPEWRITER ALIGNER!31 documented in this encounter Plan of Treatment Upcoming Encounters Date Type Specialty Care Team Description 03/25/2022 Office Visit Family Medicine Leslie Gonzalez M.D. [address] [place] [address] [phone] (Wo rk) documented as of this encounter Visit Diagnoses Not on filedocumented in this encounter
--- OUTSIDE RECORDS SUMMARY | 2022-03-22 15:50 | XMS_ITS | Encounter Summary ---
:1950 Author Organization [facility] Address [address] [place] [address] Care Team Providers Name Role Phone Unavailable Primary Care Provider Unavailable Encounter Details Date Type Department Care Team Description 08/02/2014 Hospital Encounter HX [facility] FBHB FAMILYPRA Jame Bee P.A.-C. [address] [place] [phone] (Wo rk) Social History Tobacco Use Types [...] or relatives? How often do you attend protestant or 1 to 4 times per year 07/2021 temple services? Do you belong to any clubs or Yes 10/05/2021 organizations such as protestant groups, unions, fraternal or athletic groups, or [...] Sign Reading Time Taken Comments Blood Pressure 128/72 08/02/2014 9:56 AM MEDICAL SURGERY NURSE Pulse 64 08/02/2014 9:56 AM MEDICAL SURGERY NURSE Temperature - - Respiratory Rate 16 08/02/2014 9:56 AM MEDICAL SURGERY NURSE Oxygen Saturation - - Inhaled Oxygen Concentration - - Weight 88 kg (194 lb 0.1 oz) 08/02/2014 9:56 AM MEDICAL SURGERY NURSE Height 168 cm (5' 6.14) 08/02/2014 9:56 AM MEDICAL SURGERY NURSE Body Mass Index 31.18 08/02/2014 9:56 AM MEDICAL SURGERY NURSE documented in this encounter Medications at Time [...] encounter H&P Notes Jostin Bee P.A.-C. - 08/02/2014 9:15 AM CST [id number] CHIEF COMPLAINT/REASON FOR VISIT Preop history and physical. HISTORY OF PRESENT ILLNESS Steph is a very pleasant 64-year-old female, who is going to have cataracts repaired on both eyes 2 weeks apart over the next month. She comes in today for a preop history and physical. In general, she has been doing quite well. She does have a history of some peripheral neuropathy that bothers her occasionally, but overall this has been stable. 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 She does have some peripheral vision loss. She has esophageal reflux and hyperlipidemia as well. PHYSICAL EXAMINATION The rest of the details of the preop history and physical are documented on the form, which will be scanned into the electronic medical record. IMPRESSION/REPORT/PLAN 1. Preoperative history and physical. She is [place] Society of Anesthesiologists class 2 because of her chronic medical comorbidities. They are all stable and she is okay to proceed with surgery as scheduled. I will do a CBC and a metabolic panel today. She has not had a chest x-ray or an EKG in a while, so we are going to repeat both of these today as well as part of her preop. I will notify her with any abnormalities. Otherwise, have her follow up as needed. 2. Hyperlipidemia. She was fasting today so we checked her lipids as well. 3. Impaired fasting glucose. In the past, she has had a slightly elevated glucose, so I did add a hemoglobin A1c to today's labs as well. If there is any abnormalities, I will let her know, and otherwise, we will have her follow up for surgery as scheduled. Jostin Bee PA-C/kyleigh Electronically Signed By: JOSTIN BEE PA-C On: 08/02/2014 11:55 AM Source: [facility] MHSDOLBEYNONRADSYS Document Id: [id number] CAL SURGERY NURSE documented in this encounter Miscellaneous Notes Telephone Encounter - Conversion, Historical Provider Ser - 01/24/2015 11:04 AM CDT *Phone Message/dr dalton Document Contains Addenda Addendum by SUNSHINE ANGLIN LPN on 27 January 2015 09:58:05 CDT Left message and notified to make an appt. From: BLANCA RAMAN ( [employer] Front End Loader Driver) To: Physical Medicine and Rehabilitation Staff; Sent: 01/24/2015 11:04:52 CDT Subject: *Phone Message/dr dalton Caller is: ( x ) Patient ( ) Mother ( ) Father ( ) Spouse ( ) Daughter ( ) Son ( ) Pharmacy ( ) Other: Physician: Patient MRN #: Reason for Call: S wondering about scheduling an epidural w/Dr Dalton B aware he is out today A R please call [phone] Message: Advice/Action: Source used: ( ) Verbalizes [...] back cell phone number ( ) [facility] Document Id: [id number] Miscellaneous - Jostin Bee P.A.-C. - 08/05/2014 11:11 AM CST Normal Results Letter 05 August 2014 STEPH SIMMONS [address] [facility] [id number] Dear STEPH SIMMONS, I am pleased to report that your results from the following diagnostic test(s) are normal. Please follow up with us as we discussed during your visit or sooner if you have any concerns. If you have questions or concerns, please do not hesitate to call our office. Result Name Current Result Normal Range Hgb A1c (% A1C) 5.50 08/02/2014 - <=5.60 Sincerely, JOSTIN BEE [address] [place] [address] Electronic Signature Electronically Signed By: JOSTIN BEE PA-C On: 05 August 2014 This document has images extracted. Source: [facility] Tencent Document Id: [id number] Electronically signed by Aaron [facility] Mental Health Social Worker [id number] at 11/01/2016 1:51 AM CDT Maria Elena - Benoit Roper, L.P.NGiovany - 08/02/2014 10:01 AM CST Obstructive Sleep Apnea Obstructive Sleep Apnea Entered On: 08/02/2014 10:02 MEDICAL SURGERY NURSE Performed On: 08/02/2014 10:01 MEDICAL SURGERY NURSE by BENOIT ROPER CAROLEE Screening Known Obstructive Sleep Apnea : No - NOT diagnosed with CAROLEE BENOIT ROPER - 08/02/2014 10:01 MEDICAL SURGERY NURSE CAROLEE Assessment Do you have high blood pressure or have you been told to take medication for high blood pressure? : Yes Frequency of Snoring HTN : I don't know Frequency of Gasping, Choking, Snorting HTN : Never Total Number of Historical Features HTN : 0 Neck Circumference - CAROLEE - HTN : 36/37 Total Sleep Apnea Clinical Score HTN Calc : 4 BENOIT ROPER - 08/02/2014 10:01 MEDICAL SURGERY NURSE Source: [facility] CookappCHART Document Id: [id number] MEDICAL SURGERY NURSE!10 CAL SURGERY NURSE Halicellluis - Benoit Roper L.P.NGiovany - 08/02/2014 9:56 AM CST Adult Machine Repairman Intake/History Adult Machine Repairman Intake/History Entered On: 08/02/2014 10:00 MEDICAL SURGERY NURSE Performed On: 08/02/2014 9:56 MEDICAL SURGERY NURSE by BENOIT ROPER Intake Chief Complaint : pre op Temperature Core : 36.6 DegC(Converted to: 97.9 DegF) Peripheral Pulse Rate : 64 /min Respiratory Rate : 16 /min Systolic Blood Pressure : 128 mmHg Diastolic Blood Pressure : 72 mmHg NIBP Mean : 91 mmHg BP Location : Left upper extremity Blood Pressure Cuff Size : Regular SpO2 : 99 % Height : 168 cm(Converted to: 5 ft 6 inch(es), 66 inch(es)) Actual Weight : 88 kg(Converted to: 194 lb 0 oz) Weight Source : Standing scale Dosing Weight Clinic : 88 kg Clinic BSA : 2.03 Body Mass Index : 31.18 kg/m2 BENOIT ROPER 08/02/2014 9:56 MEDICAL SURGERY NURSE General Info Information Given By : Patient Languages : [place] Is Patient Female and 13-50 no hysterectomy : No BENOIT ROPER 08/02/2014 9:56 MEDICAL SURGERY NURSE Subjective Pain Symptoms : No BENOIT ROPER 08/02/2014 9:56 MEDICAL SURGERY NURSE Dependent Habits Tobacco Use/Currently Using : No Exposure to Tobacco Smoke : Other: quit 03/1994 Smoking Status : Former smoker BENOIT ROPER 08/02/2014 9:56 MEDICAL SURGERY NURSE Caffeine Use Grid Caffeine Use : Current Type : Chocolate, Soft drinks, Tea Frequency : Occasionally BENOIT ROPER 08/02/2014 9:56 MEDICAL SURGERY NURSE Recreational Drug Use Grid Drug Use : None BENOIT ROPER 08/02/2014 9:56 MEDICAL SURGERY NURSE ID Screen Drug Resistant Organism : No Travel Within Last 21 Days : No Contact with someone with Ebola : No BENOIT ROPER 08/02/2014 9:56 MEDICAL SURGERY NURSE Source: [facility] POWERCHART Document Id: [id number] MEDICAL SURGERY NURSE!40 CAL SURGERY NURSE documented in this encounter Plan of Treatment Upcoming Encounters Date Type Specialty Care Team Description 03/25/2022 Office Visit Family Medicine Leslie Gonzalez M.D. [address] [place] [address] [phone] (Wo rk) documented as of this encounter Procedures Procedure Name Priority Date/Time Associated Comments Diagnosis LIPID PANEL, S Routine 08/02/2014 11:05 Results f or this AM MEDICAL SURGERY NURSE procedure are i n the results section. AUTOMATED Routine 08/02/2014 11:05 Results for this DIFFERENTIAL, B AM MEDICAL SURGERY NURSE procedure ar e in the results section. CBC WITH DIFFERENTIAL, Routine 08/02/2014 11:05 R esults for this B AM MEDICAL SURGERY NURSE procedure are i n the results section. HEMOGLOBIN A1C, B Routine 08/02/2014 11:05 Result s for this AM MEDICAL SURGERY NURSE procedure are i n the results section. COMPREHENSIVE Routine 08/02/2014 11:05 Results fo r this METABOLIC PANEL, S/P AM MEDICAL SURGERY NURSE procedu re are in the results section. DX CHEST AP OR PA AND Routine 08/02/2014 10:27 Re sults for this LATERAL 2 VIEWS AM MEDICAL SURGERY NURSE procedure ar e in the results section. documented in this encounter Results Automated Differential (08/02/2014 11:05 AM MEDICAL SURGERY NURSE) athologist Signature Absolute 3.07 1.70 - POWERCHART Neutrophils 7.00 109L Lymphocytes 1.44 0.90 - POWERCHART 2.90 X109L Monocytes 0.45 0.30 - POWERCHART 0.90 X109L Eosinophils 0.13 0.05 - POWERCHART 0.50 X109L Absolute 0.04 0.00 - POWERCHART Basophil 0.30 X109L Specimen Anatomical Collection Method Collection Time Receive d Time (Source) Location / / Volume Laterality Blood 08/02/2014 11:05 08/02/2014 AM MEDICAL SURGERY NURSE 11:05 AM MEDICAL SURGERY NURSE Jostin Bee P.A.-C. LAB BLOOD ADD-ON Performing Organization Address City/State/ZIP Code Phon e Number POWERCHART CBC with Differential (08/02/2014 11:05 AM MEDICAL SURGERY NURSE) athologist Signature Leukocytes 5.1 3.4 - 10.5 POWERCHART X109L Erythrocytes 4.16 3.90 - POWERCHART 5.03 [id number] Hemoglobin 13.3 12.0 - POWERCHART 15.5 GDL Hematocrit 39.8 34.9 - POWERCHART 44.5 MCV 95.7 82.0 - POWERCHART 98.0 FL Platelet Count 257 150 - 450 POWERCHART X109L HX RDW 12.0 11.9 - POWERCHART 15.5 HXDifferential? Auto POWERCHART Specimen (Source) Anatomical Collection Method Collection Time Re ceived Time Location / / Volume Laterality Blood 08/02/2014 11:05 AM MEDICAL SURGERY NURSE Jostin Bee P.A.-C. LAB BLOOD ADD-ON Performing Organization Address City/State/ZIP Code Phon e Number POWERCHART (ABNORMAL) Lipid Panel (08/02/2014 11:05 AM MEDICAL SURGERY NURSE) [facility] Method Time Signature Cholesterol, 164 0 - 200 POWERCHART Total MGDL HX HDL 87.0 (H) 40.0 - POWERCHART 60.0 MGDL Triglycerides 98 0 - 150 POWERCHART MGDL Calculated LDL 57 0 - 100 POWERCHART MGDL Total 2 POWERCHART Cholesterol/HDL Ratio Specimen (Source) Anatomical Collection Method Collection Time Re ceived Time Location / / Volume Laterality Blood 08/02/2014 11:05 AM MEDICAL SURGERY NURSE Jostin Bee P.A.-C. LAB BLOOD ADD-ON Performing Organization Address City/[facility]/ZIP Code Phon e Number POWERCHART Hemoglobin A1c (08/02/2014 11:05 AM MEDICAL SURGERY NURSE) athologist Signature Hemoglobin A1c, 5.50 <=5.60 A1C POWERCHART B Specimen (Source) Anatomical Collection Method Collection Time Re ceived Time Location / / Volume Laterality Blood 08/02/2014 11:05 AM MEDICAL SURGERY NURSE Jostin Bee P.A.-C. LAB BLOOD ADD-ON Performing Organization Address City/State/ZIP Code Phon e Number POWERCHART (ABNORMAL) CMP (Comprehensive Metabolic Panel) (08/02/2014 11:05 AM MEDICAL SURGERY NURSE) [facility] Method Time Signature BUN (Blood Urea 19 6 - 20 POWERCHART Nitrogen), S MGDL Creatinine 0.7 0.7 - 1.2 POWERCHART MGDL Potassium, S 4.3 3.5 - 4.8 POWERCHART MMOLL Sodium, S 140 135 - 145 POWERCHART MMOLL Chloride, S 101 100 - 108 POWERCHART MMOLL CO2 Total 30 22 - 30 POWERCHART MMOLL Calcium, Total, S 10.4 8.5 - POWERCHART 10.5 MGDL Albumin, S 4.3 3.5 - 5.0 POWERCHART GMDL Alkaline 88 50 - 130 POWERCHART Phosphatase, S UNITL Aspartate 33 8 - 43 POWERCHART Aminotransferase UNITL (AST), S Alanine 59 (H) 9 - 52 POWERCHART Amniotransferase, LD UNITL Bilirubin, Total, S 0.6 0.1 - 1.0 POWERCHART MGDL Total Protein, S 7.1 6.3 - 8.2 POWERCHART MGDL Glucose, Fasting, S 101 (H) 70 - 99 POWERCHART MGDL HXeGFR (MDRD) >60 MLMIN POWERCHART eGFR Black/ >60 >=60 POWERCHART [place] [id number] Specimen (Source) Anatomical Collection Method Collection Time Re ceived Time Location / / Volume Laterality Blood 08/02/2014 11:05 AM MEDICAL SURGERY NURSE Jostin Bee P.A.-C. LAB BLOOD ADD-ON Performing Organization Address City/State/ZIP Code Phon e Number POWERCHART DX Chest Anterior Posterior or Posterior Anterior and Lateral 2 Views (08/02/2014 10:27 AM MEDICAL SURGERY NURSE) Anatomical Region Laterality Modality Chest N/A Radiographic Imaging Specimen (Source) Anatomical Collection Method Collection Time Re ceived Time Location / / Volume Laterality 08/02/2014 10:27 AM MEDICAL SURGERY NURSE Impressions 08/02/2014 11:00 AM MEDICAL SURGERY NURSE Stable chest, no acute cardiopulmonary disease. Narrative 08/02/2014 11:00 AM MEDICAL SURGERY NURSE EXAM: XR Chest 2 Views INDICATION: preop COMPARISON: 10/09/2012. FINDINGS: Heart size and pulmonary vascu larity are within normal limits. No acute appearing infiltrates o r effusions are identified. There is no significant interval change compared with 10/09/2012. Procedure Note Tobi Wu Jr., M.D. / Demar Leary M.D. - 10/13/2016 EXAM: XR Chest 2 Views INDICATION: preop COMPARISON: 10/09/2012. FINDINGS: Heart size and pulmonary vascu larity are within normal limits. No acute appearing infiltrates o r effusions are identified. There is no significant interval change compared with 10/09/2012. IMPRESSION: Stable chest, no acute cardi opulmonary disease. Historical Provider IMG DIAGNOSTIC IMAGING PROCE DURES documented in this encounter Visit Diagnoses Not on filedocumented in this encounter
--- OUTSIDE RECORDS SUMMARY | 2022-03-22 15:50 | XMS_ITS | Encounter Summary ---
:1950 Author Organization [facility] Address [address] [place] [address] Care Team Providers Name Role Phone Unavailable Primary Care Provider Unavailable Encounter Details Date Type Department Care Team Description 06/25/2014 Hospital Encounter HX NO MAPPING Abilio Wilson M.D. [address] [place], [place] [phone] (Wo rk) Social History Tobacco Use Types Packs/Day Years Used Date Smoking Tobacco: Never Assessed Alcohol Habits Answer Date Recorded How often do you have a drink containing 4 or more times a w mi'kmaq 10/05/2021 alcohol? 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 However, the narrative phrase printed from the coding software may appear abbreviated, or result in slightly different terminology. Coded By: RICO GARCIA Date Saved: 06/30/2014 08:28 pm Source: [facility] POWERCHART Document Id: [id number] documented in this encounter Plan of Treatment Upcoming Encounters Date Type Specialty Care Team Description 03/25/2022 Office Visit Family Medicine Leslie Gonzalez M.D. [address] [place] [phone] (Wo rk) documented as of this encounter Visit Diagnoses Not on filedocumented in this encounter
--- OUTSIDE RECORDS SUMMARY | 2022-03-22 15:50 | XMS_ITS | Encounter Summary ---
:1950 Author Organization [facility] Address [address] [place] [address] Care Team Providers Name Role Phone Unavailable Primary Care Provider Unavailable Encounter Details Date Type Department Care Team Description 02/27/2013 Hospital Encounter HX [facility] Ken Dalton M.D. [address] [place] [address], [address] [place], [place] [phone] (Wo rk) Social History Tobacco Use Types [...] or relatives? How often do you attend sabianist or 1 to 4 times per year 07/2021 moravian services? Do you belong to any clubs or Yes 10/05/2021 organizations such as sabianist groups, unions, fraternal or athletic groups, or [...] or slept in a fdc (including now)? Sex Assigned at Date Recorded Female 03/07/2018 9:31 AM CDT documented as of this encounter Last Filed Vital Signs Vital Sign Reading Time Taken Comments Blood Pressure 118/68 02/27/2013 3:10 PM CDT Pulse - - Temperature - - Respiratory Rate - - Oxygen Saturation - - Inhaled Oxygen Concentration - - Weight 87.5 kg (192 lb 14.4 oz) 02/27/2013 3:10 PM CDT Height - - Body Mass Index 30.64 11/24/2012 8:54 AM CDT documented in this encounter Medications [...] 12/0506/30/2020 (ALIGN) 4 mg capsule mouth daily. MULTIVITAMIN ORAL daily. 0 01/27/2010 021 naproxen sodium (ALEVE) 220 Take 2 tablets by 0 0 10/05/2010 11/18/2017 mg tablet mouth every 8 (eight) hours as needed. sennosides (SENNA) 8.6 mg Take 1 tablet by 0 04/0711/18/2017 tablet mouth 2 (two) times a day as needed. documented as of this encounter Progress Notes Charito Dalton M.D. - 02/27/2013 2:31 PM CDT [id number] CHIEF COMPLAINT / REASON FOR VISIT Follow-up low back and bilateral lower extremity pain. HISTORY OF PRESENT ILLNESS Ms. Simmons returns today in followup. On February 13, she had a L5-S1 interlaminar epidural corticosteroid injection performed at [facility]. She reports that has been helpful for her. She still does notediscomfort in her bilateral lower extremity primarily in the bilateral calf as well as primarily left gluteal region and left lateral and posterolateral thigh when she is ambulating but the injection has decreased those symptoms. She denies any new paresthesias or any focal weakness in lower extremities. Since I last saw her, she denies any changes in bowel or bladder habits, fevers or chills, or recent unintentional weight loss. PHYSICAL EXAMINATION None performed today. IMPRESSION/REPORT/PLAN 1. Low back and bilateral lower extremity pain, most consistent with lumbar spinal stenosis 2. Small fiber peripheral neuropathy Ms. Simmons's symptoms and imaging again are most consistent with a diagnosis of lumbar spinal stenosis. PLAN 1. I am going to have Ms. Simmons return to physical therapy. She has found this to be very helpfulin the past but had fallen away from many of the strengthening exercises that she was doing previously. She is scheduled to leave for [place] later this week and will be gone for a month so she willcontact me when she returns and I will write up a comprehensive program for her and she will initiate that when she returns. Ms. Simmons will continue to use Tylenol and Aleve as needed for discomfort. 2. Ms. Simmons will be in contact with us when she returns from her trip to [place] as well as she will be in contact with us prior to that time if she notes any worsening or worrisome symptoms which we went over in detail today. Ms. Simmons voiced agreement and understanding with this plan. Charito Dalton M.D./adelfo Electronically Signed By: CHARITO DALTON MD On: 03/01/2013 01:15 PM Modified by and Electronically Signed by: CHARITO DALTON MD On: 03/01/2013 01:15 PM Source: [facility] MHSDOLBEYNONRADSYS Document Id: [id number] documented in this encounter Miscellaneous Notes Telephone Encounter - Monserrat Paris P.A.-C. - 03/27/2013 9:52 AM CDT Phone Message Document Contains Addenda Addendum by CHARITO DALTON MD on 27 March 2013 14:35:11 CDT From: CHARITO DALTON MD To: [facility] Medicine [facility] Rehabilitation Staff; Sent: 03/27/2013 14:35:11 CDT Subject: RE: Phone Message Done. Thanks. From: MONSERRAT PARIS ( Physical Medicine and Rehabilitation Staff) To: CHARITO DALTON MD; Sent: 03/27/2013 09:52:12 CDT Subject: Phone Message Caller is: ( ) Patient ( ) Mother ( ) Father ( ) Spouse ( ) Daughter ( ) Son ( ) Pharmacy ( ) Other: Physician: Sha Patient MRN #: Reason for Call: Mayra has returned from [place] and [place] and is ready to do some PT at [facility]. Message: Advice/Action: Source used: ( ) Verbalizes [...] back cell phone number ( ) Source: [facility] POWERCHART Document Id: [id number] Miscellaneous - Charito Dalton M.D. - 02/27/2013 3:40 PM CDT Amb[place] [address] Visit Information Name: MAYRA SIMMONS [facility] Number: [id number] Current Date: 02/27/2013 15:40:44 Physicians Attending Provider: CHARITO DALTON MD Primary Care Provider: PAWEL SERNA MD Your Medications Here is a list of your medications. It is important to take your medications as directed. Use a pillbox or chart to help remind you to take your medications. Please let your doctor or nurse know if you have problems taking your medications. Medication/Strength Dose Route Frequency Indications/Special Instructions/Comments/Notes carbidopa-levodopa (carbidopa-levodopa 25 mg-100 mg oral tablet) 1 tab(s) Oral three times a day Take 1 hour before meals omega-3 polyunsaturated fatty acids (omega-3 polyunsaturated fatty [...] a day glucosamine-chondroitin (glucosamine-chondroitin) once a day acetaminophen (Tylenol 500 mg oral tablet) Oral three times a day naproxen (Aleve 220 mg oral tablet) 2 tab(s) Oral every 8 hours as needed for pain calcium-vitamin D (Calcium 600+D) Oral two times a day multivitamin (multivitamin) once a day Attention: If you have any medications at [...] 12/13/2012 Your Upcoming Appointments Date Time Location Reason Provider No Appointments found Your Goals/Additional instructions: Source: [facility] POWERCHART Document Id: [id number] Miscellaneous - Charito Dalton M.D. - 02/27/2013 3:40 PM CDT [place] [address] Visit Information Name: MAYRA SIMMONS [facility] Number: [id number] Visit Date: 02/27/2013 15:40:43 Attending Provider: CHARITO DALTON MD Primary Care Provider: PAWEL SERNA MD MAYRA SIMMONS has been given the following list of medications: Your Medications It is important to take your medications as directed. Use a pill box or chart to help remind you to take your medications. Please let your doctor or nurse know if you have problems taking your medications. Medication/Strength Dose Route Frequency Indications/Special Instructions/Comments/Notes carbidopa-levodopa (carbidopa-levodopa 25 mg-100 mg oral tablet) 1 tab(s) Oral three times a day Take 1 hour before meals omega-3 polyunsaturated fatty acids (omega-3 polyunsaturated fatty [...] a day glucosamine-chondroitin (glucosamine-chondroitin) once a day acetaminophen (Tylenol 500 mg oral tablet) Oral three times a day naproxen (Aleve 220 mg oral tablet) 2 tab(s) Oral every 8 hours as needed for pain calcium-vitamin D (Calcium 600+D) Oral two times a day multivitamin (multivitamin) once a day Attention: If you have any medications at home that are not on this list, DO NOT take them until youcontact your provider for clarification. Additional Information: Source: [facility] POWERCHART Document Id: [id number] Miscellaneous - Monserrat Paris P.A.-C. 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 Intake/History Entered On: 02/27/2013 15:11 CDT Performed On: 02/27/2013 15:10 CDT by MONSERRAT PARIS Intake Systolic Blood Pressure : 118 mmHg Diastolic Blood Pressure : 68 mmHg NIBP Mean : 85 mmHg BP Location : Right upper extremity Blood Pressure Cuff Size : Regular Actual Weight : 87.5 kg(Converted to: 192 lb 14 oz) Weight Source : Standing scale Dosing Weight Clinic : 87.5 kg MONSERRAT PARIS - 02/27/2013 15:10 CDT General Info Information Given By : Patient Preferred Communication Mode : Verbal Languages : Yakut MONSERRAT PARIS - 02/27/2013 15:10 CDT Subjective Pain Symptoms : No MONSERRAT PARIS - 02/27/2013 15:10 CDT Dependent Habits Tobacco Use/Currently Using : No Exposure to Tobacco Smoke : Other: quit 03/1994 Smoking Status : Former smoker MONSERRAT PARIS - 02/27/2013 15:10 CDT Caffeine Use Grid Caffeine Use : Current Type : Chocolate, Tea Frequency : Occasionally MONSERRAT PARIS - 02/27/2013 15:10 CDT Recreational Drug Use Grid Drug Use : None MONSERRAT PARIS 02/27/2013 15:10 CDT Source: [facility] RadPadCHART Document Id: [id number] CDT!28 documented in this encounter Plan of Treatment Upcoming Encounters Date Type Specialty Care Team Description 03/25/2022 Office Visit Family Medicine Leslie Gonzalez M.D. [address] [place] [phone] (Wo rk) documented as of this encounter Visit Diagnoses Not on filedocumented in this encounter
--- OUTSIDE RECORDS SUMMARY | 2022-03-22 15:50 | XMS_ITS | Encounter Summary ---
:1950 Author Organization [facility] Address [address] [place] [address] Care Team Providers Name Role Phone Unavailable Primary Care Provider Unavailable Encounter Details Date Type Department Care Team Description 10/31/2013 Hospital Encounter HX [facility] Lindsey Lopez, WET PLANT OPERATOR, C.N.P. [address] [place], [place] [phone] (Wo rk) Social History Tobacco Use Types Packs/Day Years Used Date Smoking Tobacco: Never Assessed Alcohol Habits Answer Date Recorded How often do you have a drink containing 4 or more times a w [place] 10/05/2021 alcohol? How many drinks containing alcohol [...] Office Visit Family Medicine Leslie Gonzalez M.D. [address] [place] [phone] (Wo rk) documented as of this encounter Procedures Procedure Name Priority Date/Time Associated Diagnosis Comme nts BI BREAST SCREENING Routine 10/31/2013 9:00 AM Re sults for this BILATERAL CDT procedure are i n the results section. documented in this encounter Results BI Breast Screening Bilateral (10/31/2013 9:00 AM CDT) Anatomical Region Laterality Modality Breast Bilateral Mammography Specimen (Source) Anatomical Collection Method Collection Time Re ceived Time Location / / Volume Laterality 10/31/2013 9:00 AM CDT Impressions 10/31/2013 9:47 AM CDT Stable benign findings. ??Heterogeneously dense breast tissue may proportionately increase impo rtance of clinical exam. Recommend annual screening mammography. BREAST MAMMOGRAPHY - GENERAL OBSERVATION S: ??The false negative rate for mammography is 15-20%. ??It cannot b e used, therefore, to replace the regular physical examination. ??A no rmal or noncontributory mammogram report also should not deter t he aggressive further workup of any suspected palpable masses. ACR Code 2. Narrative 10/31/2013 9:47 AM CDT Comparison: 01/13/2012, 01/07/2011. FINDINGS: Breast tissue is heterogeneous ly dense, which limits sensitivity of mammography. ??No evidenc e of suspicious mass, clustered microcalcification, architectu ral distortion. ??Scattered benign-appearing calcifications. Computer aided detection utilized during interpretation of this exam. Procedure Note Maxime Liu M.D. / Provider, His preethi M.D. - 10/15/2016 Comparison: 01/13/2012, 01/07/2011. FINDINGS: Breast tissue is heterogeneous ly dense, which limits sensitivity of mammography. No evidence of suspicious mass, clustered microcalcification, architectu ral distortion. Scattered benign-appearing calcifications. Computer aided detection utilized during interpretation of this exam. IMPRESSION: Stable benign findings. Hete rogeneously dense breast tissue may proportionately increase impo rtance of clinical exam. Recommend annual screening mammography. BREAST MAMMOGRAPHY - GENERAL OBSERVATION S: The false negative rate for mammography is 15-20%. It cannot be used, therefore, to replace the regular physical examination. A norm al or noncontributory mammogram report also should not deter t he aggressive further workup of any suspected palpable masses. ACR Code 2. Maria Ines TenorioT.(R), R.T.(R)(M) IMG BI PROCEDUR ES documented in this encounter Visit Diagnoses Not on filedocumented in this encounter
--- OUTSIDE RECORDS SUMMARY | 2022-03-22 15:50 | XMS_ITS | Encounter Summary ---
:1950 Author Organization [facility] Address [address] [place] [address] Care Team Providers Name Role Phone Unavailable Primary Care Provider Unavailable Encounter Details Date Type Department Care Team Description 01/02/2014 Hospital Encounter HX [facility] FAMILYPRA Jame Bee P.A.-C. [address] [place] [phone] (Wo rk) Social History Tobacco Use Types Packs/Day Years Used Date Smoking Tobacco: Never Assessed Alcohol Habits Answer Date Recorded How often do you have a drink containing 4 or more times a w [place] 10/05/2021 alcohol? How many drinks containing [...] Sign Reading Time Taken Comments Blood Pressure 130/72 01/02/2014 12:58 PM CDT Pulse 72 01/02/2014 12:58 PM CDT Temperature - - Respiratory Rate 16 01/02/2014 12:58 PM CDT Oxygen Saturation - - Inhaled Oxygen Concentration - - Weight 90 kg (198 lb 6.6 oz) 01/02/2014 12:58 PM CDT Height 168 cm (5' 6.14) 01/02/2014 12:58 PM CDT Body Mass Index 31.89 01/02/2014 12:58 PM CDT documented in this encounter Medications [...] documented as of this encounter H&P Notes Jsotin Bee P.A.-C. - 01/02/2014 12:14 PM CDT [id number] CHIEF COMPLAINT/REASON FOR VISIT Elbow pain. HISTORY OF PRESENT ILLNESS Steph is a very pleasant 63-year-old female who has had some pain in her left elbow for the last couple months. She fell on the ice and noted some acute pain and swelling when this initially happened, but since that time her pain has improved, but she still does have some prominent swelling. She says if she hits it just right she will still have some discomfort in it. She then made the appointment to come in for that elbow, but then fell on her right elbow the other day while tripping over her lawnmower and landed on her right elbow. She has an abrasion over this one and has some increased discomfort as well. VITAL SIGNS Noted in the electronic medical record. PHYSICAL EXAMINATION GENERAL: She appears in no acute distress. EXTREMITIES: On examination of her left elbow she does have some inflammation of the olecranon bursa. No erythema is noted. Minimal tenderness is noted over the left elbow. The right elbow has a few small abrasions present. No significant swelling. There is certainly no exudative drainage was noted. There is tenderness to the touch just over the olecranon process. I did obtain x-ray of both the rightelbow and the left elbow today that I reviewed personally with the patient. There was no signs of any fracture on either elbow. IMPRESSION/REPORT/PLAN 1. Bilateral elbow pain from 2 separate falls. Plan: At this time I told her we could treat this conservatively and I do not think further treatment will be necessary other than conservative treatment. She could wrap the right elbow that is uncomfortable and she could also try icing this as it will make it feel better. She is in agreement with this plan. If there are any questions or problems she will let us know. 2. Health maintenance. She is requesting that I follow her for her other medical issues and I told her I would be happy to do this. She will need a physical next year in the spring and we will see her at that time. She has hyperlipidemia and some heartburn symptoms as well. Today her blood pressure was on the high edge of normal, but I do not think we need to do any further treatment at this time. Wewill keep an eye on this. If there is any further questions or problems she will notify us. Jostin Bee PA-C/kyleigh Electronically Signed By: JOSTIN BEE PA-C On: 01/02/2014 05:04 PM Source: [facility] MHSDOLBEYNONRADSYS Document Id: [id number] documented in this encounter Miscellaneous Notes Miscellaneous - Benoit Roper L.P.N. 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 Intake/History Entered On: 01/02/2014 13:04 CDT Performed On: 01/02/2014 12:58 CDT by BENOIT ROPER Intake Chief Complaint : pain with both elbows Temperature Core : 36.8 DegC(Converted to: 98.2 DegF) Peripheral Pulse Rate : 72 /min Respiratory Rate : 16 /min Systolic Blood Pressure : 130 mmHg Diastolic Blood Pressure : 72 mmHg NIBP Mean : 91 mmHg BP Location : Left upper extremity Blood Pressure Cuff Size : Large Height : 168 cm(Converted to: 5 ft 6 inch(es), 66 inch(es)) Actual Weight : 90 kg(Converted to: 198 lb 7 oz) Weight Source : Standing scale Dosing Weight Clinic : 90 kg Clinic BSA : 2.05 Body Mass Index : 31.89 kg/m2 BENOIT ROPER - 01/02/2014 12:58 CDT General Info Information Given By : Patient Languages : Thai BENOIT ROPER - 01/02/2014 12:58 CDT Subjective Pain Symptoms : Yes BENOIT ROPER - 01/02/2014 12:58 CDT Pain Pain Assessment Grid Pain 1 Location : Elbow BENOIT ROPER - 01/02/2014 12:58 CDT Dependent Habits Tobacco Use/Currently Using : No Exposure to Tobacco Smoke : Other: quit 03/1994 Smoking Status : Former smoker BENOIT ROPER - 01/02/2014 12:58 CDT Caffeine Use Grid Caffeine Use : Current Type : Chocolate, Soft drinks, Tea Frequency : Occasionally BENOIT ROPER - 01/02/2014 12:58 CDT Recreational Drug Use Grid Drug Use : None BENOIT ROPER - 01/02/2014 12:58 CDT Source: [facility] PolarizonicsCHART Document Id: [id number] CDT!38 documented in this encounter Plan of Treatment Upcoming Encounters Date Type Specialty Care Team Description 03/25/2022 Office Visit Family Medicine Leslie Gonzalez M.D. [address] [place] [phone] (Wo rk) documented as of this encounter Procedures Procedure Name Priority Date/Time Associated Diagnosis Comme nts DX ELBOW LEFT 3+ Routine 01/02/2014 1:08 PM Resul ts for this VIEWS CDT procedure are i n the results section. DX ELBOW RIGHT 3+ Routine 01/02/2014 1:08 PM Resu lts for this VIEWS CDT procedure are i n the results section. documented in this encounter Results DX Elbow Left 3+ Views (01/02/2014 1:08 PM CDT) Anatomical Region Laterality Modality Upper Extremity, Elbow Left Radiographic Imag ing Specimen (Source) Anatomical Collection Method Collection Time Re ceived Time Location / / Volume Laterality 01/02/2014 1:08 PM CDT Impressions 01/02/2014 1:34 PM CDT 3 views of the left elbow show no acute fracture, dislocation, soft tissue abnor mality. Lucency on the medial epicondyle appears chronic. No joint eff usion. Narrative 01/02/2014 1:34 PM CDT EXAM: XR Elbow Left 3 or more views INDICATION: fall elbow pain FINDINGS/ Procedure Note Jose Elias Hernández M.D. / Provider, Denise ram M.D. - 10/15/2016 EXAM: XR Elbow Left 3 or more views INDICATION: fall elbow pain FINDINGS/IMPRESSION: 3 views of the left elbow show no acute fracture, dislocation, soft tissue abnor mality. Lucency on the medial epicondyle appears chronic. No joint eff usion. Historical Provider IMG DIAGNOSTIC IMAGING PROCE DURES DX Elbow Right 3+ Views (01/02/2014 1:08 PM CDT) Anatomical Region Laterality Modality Upper Extremity, Elbow Right Radiographic Imag ing Specimen (Source) Anatomical Collection Method Collection Time Re ceived Time Location / / Volume Laterality 01/02/2014 1:08 PM CDT Impressions 01/02/2014 1:32 PM CDT 3 views of the right elbow show no acute fracture, dislocation, soft tissue abnor mality. Narrative 01/02/2014 1:32 PM CDT EXAM: XR Elbow Right 3 or more views INDICATION: fall elbow pain FINDINGS/ Procedure Note Jose Elias Hernández M.D. / Provider, Denise ram M.D. - 10/15/2016 EXAM: XR Elbow Right 3 or more views INDICATION: fall elbow pain FINDINGS/IMPRESSION: 3 views of the righ t elbow show no acute fracture, dislocation, soft tissue abnor mality. Historical Provider IMG DIAGNOSTIC IMAGING PROCE KENDRICK documented in this encounter Visit Diagnoses Not on filedocumented in this encounter
--- OUTSIDE RECORDS SUMMARY | 2022-03-22 15:50 | XMS_ITS | Encounter Summary ---
:1950 Author Organization [facility] Address [address] [place] [address] Care Team Providers Name Role Phone Unavailable Primary Care Provider Unavailable Encounter Details Date Type Department Care Team Description 03/04/2015 Hospital Encounter HX [facility] Ken Dalton M.D. [address] [place] [address], [address] [place], [place] [phone] (Wo rk) Social History Tobacco Use Types Packs/Day Years Used Date Smoking Tobacco: Never Assessed Alcohol Habits Answer Date Recorded How often do you have a drink containing 4 or more times a w rampart 10/05/2021 alcohol? How many drinks containing alcohol [...] Sign Reading Time Taken Comments Blood Pressure 124/68 03/04/2015 9:28 AM CDT Pulse - - Temperature - - Respiratory Rate - - Oxygen Saturation - - Inhaled Oxygen Concentration - - Weight 86.7 kg (191 lb 2.2 oz) 03/04/2015 9:28 AM CDT Height 168 cm (5' 6.14) 03/04/2015 9:28 AM CDT Body Mass Index 30.72 03/04/2015 9:28 AM CDT documented in this encounter Medications [...] encounter Progress Notes Charito Dalton M.D. - 03/04/2015 9:22 AM CDT [id number] CHIEF COMPLAINT/REASON FOR VISIT Low back and left lower extremity pain and paresthesias. HISTORY OF PRESENT ILLNESS Ms. Simmons returns today. On March 21, 2014, she had a left L5 transforaminal epidural corticosteroid injection performed which was very helpful for her. She reports that for nearly a year she has done very well, but over the past 6 weeks she has again noted the worsening pain again in the left lower extremity. She describes pain as located across her low back. This typically is only present whenshe is active such as gardening or raking or doing a lot of housework. The majority of pain is located in the left gluteal region, radiates into the left posterior and posterolateral thigh and the posterior and posterolateral leg to the level of the midcalf. This pain is worse when she is standing or walking but can be present when she is sitting as well. She can also experience tingling that can occur in the bilateral feet, radiating occasionally into the mid-anterior leg, but that is not common. She uses alternating Aleve and Tylenol for discomfort. PHYSICAL EXAMINATION GENERAL: Pleasant 64-year-old female in no acute distress. SPINE: Preserved lumbar spine range of motion. PALPATION: There is tenderness to palpation over the left greater than right lower lumbar paraspinals and the left greater than right gluteal regions. STRENGTH: All major muscle groups of the bilateral lower extremities have normal and symmetric muscle strength, bulk and tone. REFLEXES: Patellar tendons 0/0, Achilles -2/-2. IMPRESSION/REPORT/PLAN 1. Low back and left lower extremity pain, most consistent with left L5 radiculopathy. 2. Lumbar spinal stenosis. 3. Small-fiber peripheral neuropathy. 4. Acute sinusitis. Ms. Simmons's symptoms, examination and previous imaging are again most consistent with a left L5 radiculopathy being the cause of her pain secondary to severe central canal stenosis at L4-L5. PLAN: 1. We are going to proceed with a left L5 transforaminal epidural corticosteroid injection as this helped Ms. Simmons significantly when it was performed nearly 1 year ago. We will arrange for this tooccur at the first available time. She is currently leaving on a trip for [place] today, and so we will arrange for this to occur when she returns. 2. Ms. Simmons will continue to alternate her Aleve and Tylenol as well as perform the exercises she was shown previously in physical therapy. 3. Ms. Simmons has been dealing with symptoms consistent with acute sinusitis. She is scheduled to leave for [place] today and inquired about the possibility of receiving a Z-Derek which she has usedin the past when she has had very similar symptoms and it has been very helpful for her. I will giveher a prescription for a Z-Derek today as she will be leaving for [place]. If she is not improved she will be in contact with RAJENDRA Graham, her primary care provider with respect to that. 4. We will plan to be in contact with Ms. Simmons 2 weeks following the left L5 transforaminal corticosteroid injection, and she knows to be in contact with me prior to that time if she notes any worsening or worrisome symptoms, which we went over in detail today. Ms. Simmons voiced agreement and understanding with this plan. Total time 30 minutes, counseling time greater than 15 minutes. Charito Dalton M.D./kyleigh Electronically Signed By: CHARITO DALTON MD On: 03/10/2015 11:35 AM Modified by and Electronically Signed by: CHARITO DALTON MD On: 03/10/2015 11:35 AM Source: [facility] MHSDOLBEYNONRADSYS Document Id: [id number] documented in this encounter Miscellaneous Notes Miscellaneous - Brendan Rodriguez - 03/21/2015 8:34 AM CDT Reminder Msg Document Contains Addenda Addendum by BRENDAN RODRIGUEZ LPN on 22 April 2015 11:18:18 MICROBIOLOGY SOIL SCIENTIST Scheduled. Addendum by BRENDAN RODRIGUEZ LPN on 11 April 2015 12:26:50 MICROBIOLOGY SOIL SCIENTIST Message left for patient. Addendum by CHARITO DALTON MD on 08 April 2015 10:13:48 MICROBIOLOGY SOIL SCIENTIST From: CHARITO DALTON MD To: Physical Medicine and Rehabilitation Staff; Sent: 04/08/2015 10:13:48 MICROBIOLOGY SOIL SCIENTIST Show up: 04/08/2015 10:13:00 MICROBIOLOGY SOIL SCIENTIST Subject: RE: Reminder Msg Please arrange an appt. Thanks. Addendum by BRENDAN RODRIGUEZ LPN on 04 April 2015 12:44:51 CDT From: BRENDAN RODRIGUEZ LPN ( Physical Medicine and Rehabilitation Staff) To: CHARITO DALTON MD; Sent: 04/04/2015 12:44:51 CDT Show up: 04/04/2015 12:42:00 CDT Subject: RE: Reminder Msg Spoke with patient, the injection did help some; she continues to have the pain down her leg and thenumbness in her feet. She was wondering what the next step would be. Addendum by BRENDAN RODRIGUEZ LPN on 04 April 2015 10:08:02 CDT Message left for patient to return call. From: BRENDAN RODRIGUEZ LPN To: Physical Medicine and Rehabilitation Staff; Sent: 03/21/2015 08:34:12 CDT Show up: 04/04/2015 08:34:00 CDT Subject: Reminder Msg Please Remember to: Call to see how pt is doing after left L5 transforaminal corticosteroid injection PATIENT: ( ) Call Patient ( ) Ask Patient to ( ) ( ) Call Relative ( ) Schedule Patient ( ) ( ) Call for Automobile Spring Repairer ( ) Follow up on Results ( ) Other: PROVIDER: ( ) Call Physician ( ) Call Pharmacist ( ) Call Lab ( ) Other: Special Instructions: Comments: Source: [facility] POWERCHART Document Id: [id number] Telephone Encounter - Brendan Rodriguez - 03/04/2015 2:16 PM CDT FB Injection Referral Document Contains Addenda Addendum by BRENDAN RODRIGUEZ LPN on 05 March 2015 10:26:24 CDT Order has been faxed. Addendum by ANNELISE SOARES on 05 March 2015 10:23:09 CDT From: ANNELISE SOARES ([facility] President/Prior Authorizations) To: Physical Medicine and Rehabilitation Staff; Sent: 03/05/2015 10:23:09 CDT Subject: RE: FB Injection Referral Currently eligible for [employer]. No insurance referral required. From: BRENDAN RODRIGUEZ LPN ( Physical Medicine and Rehabilitation Staff) To: [facility] President/Prior Authorizations; Sent: 03/04/2015 14:16:31 CDT Subject: FB Injection Referral Diagnosis: Lumbar Radiculopathy Ordering Provider: Sha Order: L5 Transforaminal Corticosteroid Injection Order Details: Location: [facility] Reason For Visit: Low back pain Schedule with Specific Provider, If Known: Appointment date: Source: [facility] POWERCHART Document Id: [id number] Miscellaneous - Charito Dalton M.D. - 03/04/2015 9:56 AM CDT Ambulatory Patient Summary [facility] [address] [place] [id number] Visit Information Name: STEPH SIMMONS [facility] Number: [id number] Current Date: 03/04/2015 09:56:24 Physicians Attending Provider: CHARITO DALTON MD Primary [...] directed x 5 day(s) New Routed to [address] [phone] bifidobacterium infantis (Align 4 mg oral capsule) [...] the Following Medications: Medication list as of 03-04-15 09:56 Attention: If you have any medications at [...] Electronically Signed By: CHARITO DALTON MD Signed On:04-MAR-2015 09:55:40 Your Allergies & Intolerances Substance Reaction Symptoms [...] if you dont have one. Go to [email or web address] and click on Create Your Account. Then, follow the directions to complete the online form. Youll be asked for your [facility] number which you can find at the top of this document. Your Goals/Additional instructions: Source: [facility] POWERCHART Document Id: [id number] Miscellaneous - Charito Dalton M.D. - 03/04/2015 9:56 AM CDT Ambulatory Discharge Medication List [address] [id number] Visit Information Name: STEPH SIMMONS [facility] Number: [id number] Visit Date: 03/04/2015 09:56:23 Attending Provider: CHARITO DALTON MD Primary Care [...] directed x 5 day(s) New Routed to [place] [id number] [place], [place] [phone] bifidobacterium infantis (Align 4 mg oral capsule) [...] the Following Medications: Medication list as of 03-04-15 09:56 Attention: If you have any medications at [...] Electronically Signed By: CHARITO DALTON MD Signed On:04-MAR-2015 09:55:40 Additional Information: [facility] Document Id: [id number] Miscellaneous - Brendan Rodriguez - 03/04/2015 9:28 AM CDT Adult Systems Security Consultant Intake/History Adult Systems Security Consultant Intake/History Entered On: 03/04/2015 9:30 CDT Performed On: 03/04/2015 9:28 CDT by BRENDAN RODRIGUEZ PACKAGE SEALER MACHINE Intake Systolic Blood Pressure : 124 mmHg Diastolic Blood Pressure : 68 mmHg NIBP Mean : 87 mmHg BP Location : Right upper extremity Blood Pressure Cuff Size : Regular Height : 168 cm(Converted to: 5 ft 6 inch(es), 66 inch(es)) Actual Weight : 86.7 kg(Converted to: 191 lb 2 oz) Weight Source : Standing scale Dosing Weight Clinic : 86.7 kg Clinic BSA : 2.01 Body Mass Index : 30.72 kg/m2 BRENDAN RODRIGUEZ LPN - 03/04/2015 9:28 CDT General Info Information Given By : Patient Preferred Communication Mode : Verbal Languages : Brazilian Is Patient Female and 13-50 no hysterectomy : No BRENDAN RODRIGUEZ LPN - 03/04/2015 9:28 CDT Subjective Pain Symptoms : No BRENDAN RODRIGUEZ LPN - 03/04/2015 9:28 CDT Dependent Habits Tobacco Use/Currently Using : No Exposure to Tobacco Smoke : Other: quit 03/1994 Smoking Status : Former smoker BRENDAN RODRIGUEZ LPN - 03/04/2015 9:28 CDT Caffeine Use Grid Caffeine Use : Current Type : Chocolate, Soft drinks, Tea Frequency : Occasionally BRENDAN RODRIGUEZ LPN - 03/04/2015 9:28 CDT Recreational Drug Use Grid Drug Use : None BRENDAN RODRIGUEZ LPN - 03/04/2015 9:28 CDT [facility] Document Id: [id number] CDT!32 documented in this encounter Plan of Treatment Upcoming Encounters Date Type Specialty Care Team Description 03/25/2022 Office Visit Family Medicine Leslie Gonzalez M.D. [address] [place] [phone] (Wo rk) documented as of this encounter Visit Diagnoses Not on filedocumented in this encounter
--- OUTSIDE RECORDS SUMMARY | 2022-03-22 15:50 | XMS_ITS | Encounter Summary ---
:1950 Author Organization [facility] Address [address] [place] [address] Care Team Providers Name Role Phone Unavailable Primary Care Provider Unavailable Encounter Details Date Type Department Care Team Description 02/14/2014 Hospital Encounter HX [facility] Ken Dalton M.D. [address] [place] [address], [address] [place], [place] [phone] (Wo rk) Social History Tobacco Use Types Packs/Day Years Used Date Smoking Tobacco: Never Assessed Alcohol Habits Answer Date Recorded How often do you have a drink containing 4 or more times a w ak chin 10/05/2021 alcohol? How many drinks containing alcohol [...] Sign Reading Time Taken Comments Blood Pressure 126/70 02/14/2014 4:24 PM CDT Pulse - - Temperature - - Respiratory Rate - - Oxygen Saturation - - Inhaled Oxygen Concentration - - Weight 91.4 kg (201 lb 8 oz) 02/14/2014 4:24 PM CDT Height 168 cm (5' 6.14) 02/14/2014 4:24 PM CDT Body Mass Index 32.38 02/14/2014 4:24 PM CDT documented in this encounter Medications [...] encounter Progress Notes Charito Dalton M.D. - 02/14/2014 3:48 PM CDT [id number] CHIEF COMPLAINT/REASON FOR VISIT Follow up low back and bilateral lower extremity pain. HISTORY OF PRESENT ILLNESS Ms. Simmons returns today in followup. She did have a paramedian left L4-L5 intralaminar epidural corticosteroid injection performed on January 30. These injections have always helped her in the past, but this time she said she did feel some relief for a couple of days, but has not helped her near to the extent that the other injections in the past have. She describes pain that is located in her low back, but the majority of her pain is located in her bilateral lower extremities, specifically in hergluteal region, bilateral posterior thighs and on the left it also radiates into the posterolateral thigh and posterolateral leg to the level of the ankle. She has a long-standing history of paresthesias in her bilateral feet which have not changed. She denies any focal weakness in her lower extremities, changes in her bowel or bladder habits, fevers or chills. She rates her pain at its worst as a 7 out of 10. She is alternating Aleve and Tylenol Arthritis for the discomfort. PHYSICAL EXAMINATION GENERAL: Pleasant 63-year-old female in no acute distress. SPINE: Preserved lumbar spine range of motion for age. PALPATION: There is tenderness to palpation of the right greater than left lower lumbar paraspinals. STRENGTH: All major muscle groups of the bilateral lower extremities have normal and symmetric muscle strength, bulk and tone. IMPRESSION/REPORT/PLAN 1. Low back and bilateral lower extremity pain, most consistent with lumbar spinal stenosis. 2. Small fiber peripheral neuropathy. Ms. 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 She has been very diligent with the exercises that she has been shown previously in physical therapy, which I commended her. Unfortunately, she has not received improvement from the paramedian left L4-L5 interlaminar epidural corticosteroid injection that was performed on January 30. PLAN: 1. With Ms. Appiah's worsening symptoms and her lack of response to the epidural corticosteroid injection, we are going to proceed with a repeat lumbar spine magnetic resonance imaging. 2. I will plan on seeing Ms. Simmons back following the lumbar spine magnetic resonance imaging to discuss the results and the next step in her management. She knows to be in contact with me prior to that time if she notes any worsening or worrisome symptoms, which we went over in detail today. Ms. Simmons voiced agreement and understanding with this plan. Total time 25 minutes, counseling time 15 minutes. Charito Dalton M.D./kyleigh Electronically Signed By: CHARTIO DALTON MD On: 02/18/2014 10:38 AM Modified by and Electronically Signed by: CHARITO DALTON MD On: 02/18/2014 10:38 AM Source: [facility] MHSDOLBEYNONRADSYS Document Id: [id number] documented in this encounter Miscellaneous Notes Miscellaneous - Charito Dalton M.D. - 02/14/2014 6:03 PM CDT Ambulatory Patient Summary [address] [id number] Visit Information Name: MAYRA SIMMONS [facility] Number: [id number] Current Date: 02/14/2014 18:03:54 Physicians Attending Provider: CHARITO DALTON MD Primary Care Provider: PCP, UNASSIGNED - RG MAYRA SIMMONS has been given the following [...] the Following Medications: Medication list as of 02-14-14 18:03 Attention: If you have any medications at [...] Electronically Signed By: CHARITO DALTON MD Signed On:14-FEB-2014 18:03:29 Your Allergies & Intolerances Substance Reaction Symptoms [...] appointment detail needed. Your Goals/Additional instructions: Source: [facility] POWERCHART Document Id: [id number] Miscellaneous - Charito Dalton M.D. - 02/14/2014 6:03 PM CDT Ambulatory Discharge Medication List [address] [id number] Visit Information Name: MAYRA SIMMONS [facility] Number: [id number] Visit Date: 02/14/2014 18:03:52 Attending Provider: CHARITO DALTON MD Primary Care [...] the Following Medications: Medication list as of 02-14-14 18:03 Attention: If you have any medications at [...] Electronically Signed By: CHARITO DALTON MD Signed On:14-FEB-2014 18:03:29 Additional Information: Source: [facility] Document Id: [id number] Miscellaneous - Elzbieta Rodriguez - 02/14/2014 4:24 PM CDT Adult Evp Intake/History Adult Evp Intake/History Entered On: 02/14/2014 16:26 CDT Performed On: 02/14/2014 16:24 CDT by ELZBIETA RODRIGUEZ Intake Systolic Blood Pressure : 126 mmHg Diastolic Blood Pressure : 70 mmHg NIBP Mean : 89 mmHg BP Location : Right upper extremity Blood Pressure Cuff Size : Regular Height : 168 cm(Converted to: 5 ft 6 inch(es), 66 inch(es)) Actual Weight : 91.4 kg(Converted to: 201 lb 8 oz) Weight Source : Standing scale Dosing Weight Clinic : 91.4 kg Clinic BSA : 2.07 Body Mass Index : 32.38 kg/m2 JENNIFER ELZBIETA Jurado - 02/14/2014 16:24 CDT General Info Information Given By : Patient Preferred Communication Mode : Verbal Languages : Maltese Is Patient Female and 13-50 no hysterectomy : No JENNIFER ELZBIETA Jurado - 02/14/2014 16:24 CDT Subjective Pain Symptoms : No ELZBIETA RODRIGUEZ - 02/14/2014 16:24 CDT Dependent Habits Tobacco Use/Currently Using : No Exposure to Tobacco Smoke : Other: quit 03/1994 Smoking Status : Former smoker JENNIFER ELZBIETA Jurado - 02/14/2014 16:24 CDT Caffeine Use Grid Caffeine Use : Current Type : Chocolate, Soft drinks, Tea Frequency : Occasionally ELZBIETA RODRIGUEZ - 02/14/2014 16:24 CDT Recreational Drug Use Grid Drug Use : None ELZBIETA RODRIGUEZ - 02/14/2014 16:24 CDT Source: [facility] Document Id: [id number] CDT!32 documented in this encounter Plan of Treatment Upcoming Encounters Date Type Specialty Care Team Description 03/25/2022 Office Visit Family Medicine Leslie Gonzalez M.D. [address] [place] [address] [phone] (Wo rk) documented as of this encounter Visit Diagnoses Not on filedocumented in this encounter
--- OUTSIDE RECORDS SUMMARY | 2022-03-22 15:50 | XMS_ITS | Encounter Summary ---
:1950 Author Organization [facility] Address [address] [place] [address] Care Team Providers Name Role Phone Unavailable Primary Care Provider Unavailable Encounter Details Date Type Department Care Team Description 05/19/2015 Hospital Encounter HX [facility] Ken Dalton M.D. [address] [place] [address], [address] [place], [place] [phone] (Wo rk) Social History Tobacco Use Types Packs/Day Years Used Date Smoking Tobacco: Never Assessed Alcohol Habits Answer Date Recorded How often do you have a drink containing 4 or more times a w agdaagux 10/05/2021 alcohol? How many drinks containing alcohol [...] or slept in a alf (including now)? Sex Assigned at Date Recorded Female 03/07/2018 9:31 AM CDT documented as of this encounter Last Filed Vital Signs Vital Sign Reading Time Taken Comments Blood Pressure 128/74 05/19/2015 9:06 AM WIRE THREADER Pulse - - Temperature - - Respiratory Rate - - Oxygen Saturation - - Inhaled Oxygen Concentration - - Weight 90 kg (198 lb 6.6 oz) 05/19/2015 9:06 AM WIRE THREADER Height 168 cm (5' 6.14) 05/19/2015 9:06 AM WIRE THREADER Body Mass Index 31.89 05/19/2015 9:06 AM WIRE THREADER documented in this encounter Medications at Time [...] encounter Progress Notes Charito Dalton M.D. - 05/19/2015 8:55 AM CST [id number] CHIEF COMPLAINT/REASON FOR VISIT Followup low back and left lower extremity pain and paresthesias. HISTORY OF PRESENT ILLNESS Ms. Simmons returns today in followup on March 20. She had a left L5 transforaminal epidural corticosteroid injection. She reports this has been very helpful for her lower extremity pain. She reports that arm she is no longer having any of the shooting pain that she was having into her left lowerextremity as she was experiencing previously. She also denies any focal weakness in her lower extremities. She has noted however over the past month more discomfort across her low back. She describes this as an achy discomfort that is located across her low back. The pain can occasionally radiate intothe bilateral gluteal regions as well. This pain is typically worse with sitting especially when she first goes from a seated to a standing position. She denies any change in bowel or bladder habits, or fevers or chills. PHYSICAL EXAMINATION GENERAL: Pleasant 65-year-old female in no acute distress. NEUROLOGIC: Gait: Nonantalgic. MUSCULOSKELETAL: Spine: Preserved lumbar spine range of motion. She does have pain at the end range of extension across her low back. Palpation: There is tenderness to palpation in the bilateral low lumbar paraspinals. Strength: All major muscle groups of the bilateral lower extremities have normal and symmetric muscle strength, bulk and tone. Reflexes: Patella tendon 0/0, Achilles -2/-2. Straight leg raise negative for any radicular pain or paresthesias bilaterally today although this does cause pain in her low back bilaterally. IMPRESSION/REPORT/PLAN 1. Low back and left lower extremity pain, most consistent with a left L5 radiculopathy. 2. Lumbar spinal stenosis. 3. Lumbar spondylosis. 4. Small fiber peripheral neuropathy. Ms. Simmons has made very good progress following the left L5 transforaminal epidural corticosteroid injection. She still does have discomfort located across her low back and I feel much of that is related to the degenerative changes in her lumbar spine and we spent some time discussing that today. PLAN: 1. Ms. Simmons is going to be leaving for [place] for the winter and so we discussed having her involved in an aquatic exercise program and she will have access to a pool there in [place]. 2. She will continue with her land-based exercises that she was shown as well in physical therapy. 3. Ms. Simmons will continue to use her Tylenol and Aleve as needed for discomfort. I am also goingto give her a prescription for tramadol 50 mg 1 to 2 tablets every 8 hours as needed for pain #60 ifshe has an exacerbation of her pain, especially as she will be away for 3 months in [place]. 4. I will plan to see Ms. Simmons when she returns from [place] at the end of September but if she were to notices any change in her symptoms or any new issues prior to that time I would be happy speakwith her on the phone. Ms. Simmons voiced agreement and understanding of this plan. Total time 25 minutes, counseling and coordination of care time greater than 15 minutes. Charito Dalton M.D./kyleigh Electronically Signed By: CHARITO DALTON MD On: 05/21/2015 12:32 PM Modified by and Electronically Signed by: CHARITO DALTON MD On: 05/21/2015 12:32 PM Source: [facility] MHSDOLBEYNONRADSYS Document Id: [id number] THREADER documented in this encounter Miscellaneous Notes Miscellaneous - Sunshine Anglin L.P.N. - 05/19/2015 11:41 AM CST *General Message Document Contains Addenda Addendum by JOSE DE DIOS LPN on 19 May 2015 11:54:24 WIRE THREADER Rx called to [facility] in [place] Addendum by CHARITO DALTON MD on 19 May 2015 11:50:16 WIRE THREADER From: CHARITO DALTON MD To: [facility] Medicine [facility] Rehabilitation Staff; Sent: 05/19/2015 11:50:16 WIRE THREADER Subject: RE: *General Message Please call. Thanks. Addendum by CHARITO DALTON MD on 19 May 2015 11:45:06 WIRE THREADER Submitted: Order:traMADol (traMADol 50 mg oral tablet) 1-2 tabs PO q8hr Qty: 60 tab(s) Refills: 0 Substitutions Allowed PRN Pain Don't Print - called to pharmacy (Rx) Signed by CHARITO DALTON MD From: SUNSHINE ANGLIN LPN ( Physical Medicine and Rehabilitation Staff) To: CHARITO DALTON MD; Sent: 05/19/2015 11:41:45 WIRE THREADER Subject: *General Message 20 years ago she got hives from morphine but continued to take it while in hospital with benadryl and was fine. Source: [facility] POWERCHART Document Id: [id number] Electronically signed by Aaron [facility] Psychology Technician [id number] at 11/01/2016 5:55 PM CDT Miscellaneous - Charito Dalton M.D. - 05/19/2015 9:50 AM CST Ambulatory Patient Summary [facility] [address] [place] [phone] Visit Information Name: STEPH SIMMONS [facility] Number: [id number] Current Date: 05/19/2015 09:50:23 Physicians Attending Provider: CHARITO DALTON MD Primary [...] the Following Medications: Medication list as of 05-19-15 09:50 Attention: If you have any medications [...] Electronically Signed By: CHARITO DALTON MD Signed On:19-MAY-2015 09:49:46 Your Allergies & Intolerances Substance Reaction Symptoms [...] if you dont have one. Go to [email or web address] and click on Create Your Account. Then, follow the directions to complete the online form. Youll be asked for your [facility] number which you can find at the top of this document. Your Goals/Additional instructions: Source: [facility] POWERCHART Document Id: [id number] THREADER Miscellaneous - Charito Dalton M.D. - 05/19/2015 9:50 AM CST Ambulatory Discharge Medication List [address] [phone] Visit Information Name: STEPH SIMMONS [facility] Number: [id number] Visit Date: 05/19/2015 09:50:21 Attending Provider: CHARITO DALTON MD Primary Care [...] the Following Medications: Medication list as of 05-19-15 09:50 Attention: If you have any medications [...] Electronically Signed By: CHARITO DALTON MD Signed On:19-MAY-2015 09:49:46 Additional Information: Source: [facility] POWERCHART Document Id: [id number] THREADER Miscellaneous - Sunshine Anglin L.PGiovanyNGiovany - 05/19/2015 9:06 AM CST Adult Records Management Coordinator Intake/History Adult Records Management Coordinator Intake/History Entered On: 05/19/2015 9:08 WIRE THREADER Performed On: 05/19/2015 9:06 WIRE THREADER by SUNSHINE ANGLIN LPN Intake Systolic Blood Pressure : 128 mmHg Diastolic Blood Pressure : 74 mmHg NIBP Mean : 92 mmHg BP Location : Right upper extremity Blood Pressure Cuff Size : Large Height : 168 cm(Converted to: 5 ft 6 inch(es), 66 inch(es)) Actual Weight : 90.0 kg(Converted to: 198 lb 7 oz) Dosing Weight Clinic : 90 kg Clinic BSA : 2.05 Body Mass Index : 31.89 kg/m2 SUNSHINE ANGLIN LPN - 05/19/2015 9:06 WIRE THREADER General Info Information Given By : Patient Languages : Paraguayan Is Patient Female and 13-50 no hysterectomy : No SUNSHINE ANGLIN SILVESTRE - 05/19/2015 9:06 WIRE THREADER Subjective Pain Symptoms : No SUNSHINE ANGLIN SILVESTRE - 05/19/2015 9:06 WIRE THREADER Dependent Habits Exposure to Tobacco Smoke : Other: quit 03/1994 Smoking Status : Former smoker Tobacco 2A : Yes Tobacco Use/Currently Using : No Tobacco Use/Last 30 Days : No Tobacco Use/Last 12 months : No SUNSHINE ANGLIN SILVESTRE - 05/19/2015 9:06 WIRE THREADER Caffeine Use Grid Caffeine Use : Current Type : Chocolate, Soft drinks, Tea Frequency : Occasionally SUNSHINE ANGLINEvelyne RIVERS - 05/19/2015 9:06 WIRE THREADER Recreational Drug Use Grid Drug Use : None SUNSHINE ANGLINEvelyne RIVERS - 05/19/2015 9:06 WIRE THREADER Source: [employer] software Document Id: [id number] WIRE THREADER!33 THREADER Telephone Encounter - Charito Dalton M.D. - 05/19/2015 12:00 AM CST [id number] As I was discussing with Ms. Simmons the possibility of placing her on tramadol at her clinical visit she did have an allergy listed to morphine. I discuss this in greater detail with her. She reportsthat 20 years ago when she was hospitalized she was given morphine and had what sounds like potentially hives. She reports that she did not have any trouble breathing and no other issues and they actually continued to give her morphine but would give her Benadryl around the time that she was receivingthe morphine. She has not had any other reaction like that since that time although she has not usedmorphine since. We did discuss potential risks and benefits of proceeding with tramadol. She would like to proceed with that and with what is described of her reaction to morphine 20 years ago, I thinkthat would be reasonable and she is going to have someone with her the first time that she takes Tramadol. Ms. Simmons voiced agreement with this plan. Charito Dalton M.D./kyleigh Electronically Signed By: CHARITO DALTON MD On: 05/21/2015 12:29 PM Modified by and Electronically Signed by: CHARITO DALTON MD On: 05/21/2015 12:29 PM Source: [facility] MHSDOLBEYNONRADSYS Document Id: [id number] THREADER documented in this encounter Plan of Treatment Upcoming Encounters Date Type Specialty Care Team Description 03/25/2022 Office Visit Family Medicine Leslie Gonzalez M.D. [address] [place] [phone] (Wo rk) documented as of this encounter Visit Diagnoses Not on filedocumented in this encounter
--- OUTSIDE RECORDS SUMMARY | 2022-03-22 15:50 | XMS_ITS | Encounter Summary ---
:1950 Author Organization [facility] Address [address] [place] [address] Care Team Providers Name Role Phone Unavailable Primary Care Provider Unavailable Encounter Details Date Type Department Care Team Description 11/01/2014 Hospital Encounter HX [facility] Merrill Knott P.A.-C. [address] [place] [phone] (Wo rk) Social History Tobacco Use Types Packs/Day Years Used Date Smoking Tobacco: Never Assessed Alcohol Habits Answer Date Recorded How often do you have a drink containing 4 or more times a w yocha dehe 10/05/2021 alcohol? How many drinks containing alcohol [...] for the very basics like Not h advid at all 10/05/2021 food, housing, medical care, [...] - - Height 168 cm (5' 6.14) 11/01/2014 7:59 AM CDT Body Mass Index - - [...] Visit Family Medicine Leslie Gonzalez M.D. [address] [place] [phone] (Wo rk) documented as of this encounter Procedures Procedure Name Priority Date/Time Associated Diagnosis Comme nts BI BREAST SCREENING Routine 11/01/2014 8:10 AM Re sults for this BILATERAL CDT procedure are i n the results section. documented in this encounter Results BI Breast Screening Bilateral (11/01/2014 8:10 AM CDT) Anatomical Region Laterality Modality Breast Bilateral Mammography Specimen (Source) Anatomical Collection Method Collection Time Re ceived Time Location / / Volume Laterality 11/01/2014 8:10 AM CDT Impressions 11/01/2014 8:47 AM CDT Benign findings, BIRADS 2. Yearly mammograms are recommended. MAMMOGRAPHY - GENERAL OBSERVATIONS: The reported false negative rate for mammography is 15-20%. It cannot be used, therefore, to replace the regular physical examination. A norm al or noncontributory mammogram report also should not deter t he aggressive further workup of any suspected palpable masses. Narrative 11/01/2014 8:47 AM CDT HISTORY: Screening mammogram. Technique: Bilateral digital mammograms were obtained in the CC and MLO projections. COMPARISON: 10/31/2013 and prior. FINDINGS: There has been no significant interval change (benign calcifications are once again observed ( . The breast parenchymal pattern remains heterogeneously dense fo r age 64 which decreases mammographic sensitivity while increasin g the importance of physical exams. There is no definite evidence of a new dominant spiculated mass / focal asymmetry, concerning clust ered pleomorphic microcalcifications, or architectural di stortion. No definite new skin thickening, lymphadenopathy, or nip ple retraction / inversion. No other definite concerning mammogram f indings. CAD was utilized. Procedure Note Chad Aguilera M.D. / Provider, Jed montgomery M.D. - 10/13/2016 HISTORY: Screening mammogram. Technique: Bilateral digital mammograms were obtained in the CC and MLO projections. COMPARISON: 10/31/2013 and prior. FINDINGS: There has been no significant interval change (benign calcifications are once again observed ( . The breast parenchymal pattern remains heterogeneously dense fo r age 64 which decreases mammographic sensitivity while increasin g the importance of physical exams. There is no definite evidence of a new dominant spiculated mass / focal asymmetry, concerning clust ered pleomorphic microcalcifications, or architectural di stortion. No definite new skin thickening, lymphadenopathy, or nip ple retraction / inversion. No other definite concerning mammogram f indings. CAD was utilized. IMPRESSION: Benign findings, BIRADS 2. Yearly mammograms are recommended. MAMMOGRAPHY - GENERAL OBSERVATIONS: The reported false negative rate for mammography is 15-20%. It cannot be used, therefore, to replace the regular physical examination. A norm al or noncontributory mammogram report also should not deter t he aggressive further workup of any suspected palpable masses. Brando Figueroa(R)(M) IMG BI PROCEDURES documented in this encounter Visit Diagnoses Not on filedocumented in this encounter
--- OUTSIDE RECORDS SUMMARY | 2022-03-22 15:50 | XMS_ITS | Encounter Summary ---
:1950 Author Organization [facility] Address [address] [place] [address] Care Team Providers Name Role Phone Unavailable Primary Care Provider Unavailable Encounter Details Date Type Department Care Team Description 05/17/2013 Hospital Encounter HX [facility] Jame Bee P.A.-C. [address] [place] [phone] (Wo rk) Social History Tobacco Use Types Packs/Day Years Used Date Smoking Tobacco: Never Assessed Alcohol Habits Answer Date Recorded How often do you have a drink containing 4 or more times a w chipewwa 10/05/2021 alcohol? How many drinks containing alcohol [...] Sign Reading Time Taken Comments Blood Pressure 138/76 05/17/2013 11:16 AM DISTRIBUTION LEAD Pulse 68 05/17/2013 11:16 AM DISTRIBUTION LEAD Temperature - - Respiratory Rate 14 05/17/2013 11:16 AM DISTRIBUTION LEAD Oxygen Saturation - - Inhaled Oxygen Concentration - - Weight 89 kg (196 lb 3.4 oz) 05/17/2013 11:16 AM DISTRIBUTION LEAD Height 171 cm (5' 7.32) 05/17/2013 11:16 AM DISTRIBUTION LEAD Body Mass Index 30.44 05/17/2013 11:16 AM DISTRIBUTION LEAD documented in this encounter Medications at Time [...] encounter Progress Notes Jostin Bee P.A.-C. - 05/17/2013 10:56 AM CST [id number] CHIEF COMPLAINT/REASON FOR VISIT Rash in her axillary as well as an open wound on her finger. HISTORY OF PRESENT ILLNESS Mayra is a very pleasant 63-year-old female who has had a rash in her axillary area for the last couple days. She does not recall getting any exposures. She has not had any new deodorant. She does not use new fabric softener. She says it is irritating she is worried that she may have shingles it is fairly painful. She does shave her armpits has not done so recently. In general she says otherwise she is feeling well. She also does have a cut on the pad of her first digit right hand and this has been bothering her as well. VITAL SIGNS Noted in electronic medical record. PHYSICAL EXAMINATION GENERAL: She appears in no acute distress. SKIN: In her axillary area she does have an area of erythema that is linear and in the fold of her axilla specifically. She describes it as irritating more so than pruritic. It is an erythematous rash slightly raised. No axillary lymphadenopathy was noted. On examination of her first digit she has a la ceration on the pad of her first digit. She has been trying to cover this with a Band-Aid but it continues to crack and not heal very well. I cleansed this area very thoroughly today just with soap andwater and we applied some Dermabond to it. Which sealed it up nicely. IMPRESSION/REPORT/PLAN 1. Rash. At this time I am going to give her some Lotrisone cream which will cover the possibility of fungus versus also contact dermatitis. If her symptoms worsen or do not completely resolve with this treatment in the next 3 to 5 days she will let us know. 2. Laceration. Watch any signs infection on her laceration on her thumb. I will have her keep it clean and dry but she should have any problems with the Dermabond. If she does have complications or problems with this she will let us know. Otherwise will have her follow up as needed. Jostin Bee PA-C/ruben Electronically Signed By: JOSTIN BEE PA-C On: 05/18/2013 08:25 AM Source: [facility] MHSDOLBEYNONRADSYS Document Id: [id number] RIBUTION LEAD documented in this encounter Miscellaneous Notes Miscellaneous - Jostin Bee P.A.-C. - 05/17/2013 11:43 AM CST Ambulatory Patient Summary [address] [id number] Visit Information Name: MAYRA SIMMONS [facility] Number: [id number] Current Date: 05/17/2013 11:43:08 Physicians Attending Provider: JOSTIN BEE PA-C Primary Care Provider: PAWEL SERNA MD MAYRA [...] (Calcium 600+D) Oral, two times a day clotrimazole-betamethasone topical (Lotrisone 1%-0.05% topical cream) 1 aurora, Topical, two times a day x 10 day(s) New Routed to [facility] , glucosamine-chondroitin (glucosamine-chondroitin) once a day Misc Prescription [...] the Following Medications: Medication list as of 05-17-13 11:43 Attention: If you have any medications at [...] appointment detail needed. Your Goals/Additional instructions: Source: [facility] POWERCHART Document Id: [id number] RIBUTION LEAD Miscellaneous - Jostin Bee P.A.-C. - 05/17/2013 11:43 AM CST Ambulatory Depart Summary [address] [place] [address] Visit Information Name: MAYRA SIMMONS [facility] Number: [id number] Visit Date: 05/17/2013 11:43:06 Attending Provider: JOSTIN BEE PA-C Primary Care Provider: PAWEL SERNA MD MAYRA [...] (Calcium 600+D) Oral, two times a day clotrimazole-betamethasone topical (Lotrisone 1%-0.05% topical cream) 1 aurora, Topical, two times a day x 10 day(s) New Routed to [address] [phone] glucosamine-chondroitin (glucosamine-chondroitin) once a day Misc Prescription [...] the Following Medications: Medication list as of 05-17-13 11:43 Attention: If you have any medications at home that are not on this list, DO NOT take them until youcontact your provider for clarification. Give a copy of your medication list to your primary care provider. Update your medication list any time medications or doses are changed and carry your medication list at all times in case of emergency. Additional Information: Source: [facility] POWERCHART Document Id: [id number] RIBUTION LEAD Miscellaneous - Simona Roper L.P.N. - 05/17/2013 11:16 AM CST Adult Polisher Hand Intake/History Adult Polisher Hand Intake/History Entered On: 05/17/2013 11:20 DISTRIBUTION LEAD Performed On: 05/17/2013 11:16 DISTRIBUTION LEAD by SIMONA ROPER Intake Chief Complaint : burning rash in both arm pits for 5 days Temperature Core : 36.4 DegC(Converted to: 97.5 DegF) (LOW) Peripheral Pulse Rate : 68 /min Respiratory Rate : 14 /min Systolic Blood Pressure : 138 mmHg Diastolic Blood Pressure : 76 mmHg NIBP Mean : 97 mmHg BP Location : Left upper extremity Blood Pressure Cuff Size : Large Height : 171 cm(Converted to: 5 ft 7 inch(es), 67.32 inch(es)) Actual Weight : 89 kg(Converted to: 196 lb 3 oz) Weight Source : Standing scale Dosing Weight Clinic : 89 kg Clinic BSA : 2.06 Body Mass Index : 30.44 kg/m2 SIMONA ROPER - 05/17/2013 11:16 DISTRIBUTION LEAD General Info Information Given By : Patient Languages : Chinese SIMONA ROPER 05/17/2013 11:16 DISTRIBUTION LEAD Subjective Pain Symptoms : Yes SIMONA ROPER 05/17/2013 11:16 DISTRIBUTION LEAD Pain Pain Assessment Grid Pain 1 Location : Other: armpit burning pain SIMONA ROPER 05/17/2013 11:16 DISTRIBUTION LEAD Dependent Habits Tobacco Use/Currently Using : No Exposure to Tobacco Smoke : Other: quit 03/1994 Smoking Status : Former smoker SIMONA ROPER - 05/17/2013 11:16 DISTRIBUTION LEAD Caffeine Use Grid Caffeine Use : Current Type : Chocolate, Tea Frequency : Occasionally SIMONA ROPER - 05/17/2013 11:16 DISTRIBUTION LEAD Recreational Drug Use Grid Drug Use : None SIMONA ROPER - 05/17/2013 11:16 DISTRIBUTION LEAD Source: [facility] POWERCHART Document Id: [id number] DISTRIBUTION LEAD!38 RIBUTION LEAD documented in this encounter Plan of Treatment Upcoming Encounters Date Type Specialty Care Team Description 03/25/2022 Office Visit Family Medicine Leslie Gonzalez M.D. [address] [place] [address] [phone] (Wo rk) documented as of this encounter Visit Diagnoses Not on filedocumented in this encounter
--- OUTSIDE RECORDS SUMMARY | 2022-03-22 15:50 | XMS_ITS | Encounter Summary ---
:1950 Author Organization [facility] Address [address] [place] [address] Care Team Providers Name Role Phone Unavailable Primary Care Provider Unavailable Encounter Details Date Type Department Care Team Description 04/04/2014 Hospital Encounter HX [facility] Ken Dalton M.D. [address] [place] [address], [address] [place], [place] [phone] (Wo rk) Social History Tobacco Use Types Packs/Day Years Used Date Smoking Tobacco: Never Assessed Alcohol Habits Answer Date Recorded How often do you have a drink containing 4 or more times a w [place] 10/05/2021 alcohol? How many drinks containing alcohol [...] 1 to 4 times per year 07/2021 rastafarian services? Do you belong to any clubs [...] Sign Reading Time Taken Comments Blood Pressure 120/62 04/04/2014 9:41 AM CDT Pulse - - Temperature - - Respiratory Rate - - Oxygen Saturation - - Inhaled Oxygen Concentration - - Weight 88.3 kg (194 lb 10.7 oz) 04/04/2014 9:41 AM CDT Height 168 cm (5' 6.14) 04/04/2014 9:41 AM CDT Body Mass Index 31.29 04/04/2014 9:41 AM CDT documented in this encounter Medications [...] encounter Progress Notes Charito Dalton M.D. - 04/04/2014 9:36 AM CDT [id number] CHIEF COMPLAINT/REASON FOR VISIT Followup low back and left lower extremity pain and paresthesias. HISTORY OF PRESENT ILLNESS Ms. Simmons returns today in followup. On March 21, she had a left L5 transforaminal epidural corticosteroid injection performed. She reports this has been very helpful for her. She has had the resolution of her left lower extremity pain and paresthesias. She does have continued intermittent low back pain but overall she is extremely pleased with the result of the injection and has been able to bemuch more active, which she is pleased with. She did not have any ill effects from the injection. PHYSICAL EXAMINATION None performed today. IMPRESSION/REPORT/PLAN 1. Low back and left greater than right lower extremity pain. 2. Lumbar spinal stenosis. 3. Lumbar spondylosis. 4. Small fiber peripheral neuropathy. Ms. Simmons has made excellent progress following the left L5 transforaminal epidural corticosteroid injection. PLAN: 1. Ms. Simmons will continue the exercises she was shown earlier in physical therapy. She will alsocontinue to use extra-strength Tylenol and Aleve as needed for pain relief. 2. I will plan no followup with Ms. Simmons at this time as she is doing well but if she has any return of her symptoms I would be happy to see her back at any time in the future. Ms. Simmons voiced agreement and understanding with this plan. Charito Dalton M.D./kyleigh Electronically Signed By: CHARITO DALTON MD On: 04/10/2014 11:20 AM Modified by and Electronically Signed by: CHARITO DALTON MD On: 04/10/2014 11:20 AM Source: [facility] MHSDOLBEYNONRADSYS Document Id: [id number] BED DRIVER documented in this encounter Miscellaneous Notes Miscellaneous - Charito Dalton M.D. - 04/04/2014 10:21 AM CDT Ambulatory Patient Summary [address] [id number] Visit Information Name: MAYRA SIMMONS [facility] Number: [id number] Current Date: 04/04/2014 10:21:42 Physicians Attending Provider: CHARITO DALTON MD Primary [...] the Following Medications: Medication list as of 04-04-14 10:21 Attention: If you have any medications at [...] Electronically Signed By: CHARITO DALTON MD Signed On:04-APR-2014 10:20:57 Your Allergies & Intolerances Substance Reaction Symptoms [...] appointment detail needed. Your Goals/Additional instructions: Source: [facility] POWERCHART Document Id: [id number] Miscellaneous - Charito Dalton M.D. - 04/04/2014 10:21 AM CDT Ambulatory Discharge Medication List [address] [id number] Visit Information Name: MAYRA SIMMONS [facility] Number: [id number] Visit Date: 04/04/2014 10:21:40 Attending Provider: CHARITO DALTON MD Primary Care Provider: PCP, UNASSIGNED - FB MARLINEMAYRA FOSS has been given the following [...] the Following Medications: Medication list as of 04-04-14 10:21 Attention: If you have any medications at [...] Electronically Signed By: CHARITO DALTON MD Signed On:04-APR-2014 10:20:57 Additional Information: Source: [facility] POWERCHART Document Id: [id number] Miscellaneous - Elzbieta Rodriguez - 04/04/2014 9:41 AM CDT Adult Table Games Supervisor Intake/History Adult Table Games Supervisor Intake/History Entered On: 04/04/2014 9:43 CDT Performed On: 04/04/2014 9:41 CDT by ELZBIETA RODRIGUEZ Intake Systolic Blood Pressure : 120 mmHg Diastolic Blood Pressure : 62 mmHg NIBP Mean : 81 mmHg BP Location : Left upper extremity Blood Pressure Cuff Size : Regular Height : 168 cm(Converted to: 5 ft 6 inch(es), 66 inch(es)) Actual Weight : 88.3 kg(Converted to: 194 lb 11 oz) Weight Source : Standing scale Dosing Weight Clinic : 88.3 kg Clinic BSA : 2.03 Body Mass Index : 31.29 kg/m2 ELZBIETA RODRIGUEZ - 04/04/2014 9:41 CDT General Info Information Given By : Patient Preferred Communication Mode : Verbal Languages : Cymro Is Patient Female and 13-50 no hysterectomy : ELZBIETA Knutson - 04/04/2014 9:41 CDT Subjective Pain Symptoms : ELZBIETA Knutson - 04/04/2014 9:41 CDT Dependent Habits Tobacco Use/Currently Using : No Exposure to Tobacco Smoke : Other: quit 03/1994 Smoking Status : Former smoker ELZBIETA RODRIGUEZ 04/04/2014 9:41 CDT Caffeine Use Grid Caffeine Use : Current Type : Chocolate, Soft drinks, Tea Frequency : Occasionally ELZBIETA RODRIGUEZ - 04/04/2014 9:41 CDT Recreational Drug Use Grid Drug Use : None ELZBIETA RODRIGUEZ 04/04/2014 9:41 CDT ID Screen Drug Resistant Organism : No Travel Within Last 21 Days : ELZBIETA Knutson - 04/04/2014 9:41 CDT Source: [place] Document Id: [id number] CDT!35 documented in this encounter Plan of Treatment Upcoming Encounters Date Type Specialty Care Team Description 03/25/2022 Office Visit Family Medicine Leslie Gonzalez M.D. [address] [place] [address] [phone] (Wo rk) documented as of this encounter Visit Diagnoses Not on filedocumented in this encounter
--- OUTSIDE RECORDS SUMMARY | 2022-03-22 15:50 | XMS_ITS | Encounter Summary ---
:1950 Author Organization [facility] Address [address] [place] [address] Care Team Providers Name Role Phone Unavailable Primary Care Provider Unavailable Encounter Details Date Type Department Care Team Description 07/05/2014 Hospital Encounter HX [facility] Jame Bee P.A.-C. [address] [place] [phone] (Wo rk) Social History Tobacco Use Types Packs/Day Years Used Date Smoking Tobacco: Never Assessed Alcohol Habits Answer Date Recorded How often do you have a drink containing 4 or more times a w [place] 10/05/2021 alcohol? How many drinks containing alcohol [...] 1 to 4 times per year 07/2021 taoist services? Do you belong to any clubs [...] Sign Reading Time Taken Comments Blood Pressure 120/70 07/05/2014 8:43 AM CRYSTAL LAPPER Pulse 84 07/05/2014 8:43 AM CRYSTAL LAPPER Temperature - - Respiratory Rate 12 07/05/2014 8:43 AM CRYSTAL LAPPER Oxygen Saturation - - Inhaled Oxygen Concentration - - Weight 86.5 kg (190 lb 11.2 oz) 07/05/2014 8:43 AM CRYSTAL LAPPER Height 168 cm (5' 6.14) 07/05/2014 8:34 AM CRYSTAL LAPPER Body Mass Index 30.65 07/05/2014 8:34 AM CRYSTAL LAPPER documented in this encounter Medications at Time [...] encounter Progress Notes Jostin Bee P.A.-C. - 07/05/2014 8:33 AM CST [id number] CHIEF COMPLAINT/REASON FOR VISIT Reason for visit is cough times 2 to 3 weeks. HISTORY OF PRESENT ILLNESS Mayra Jones is a very pleasant 64-year-old female who unfortunately has had a cough, now going on about3 weeks. She saw Dr. Wilson and was treated with azithromycin but her symptoms have not improved. She tried Benadryl at nighttime, which made her quite drowsy. VITAL SIGNS Noted in EMR. PHYSICAL EXAMINATION GENERAL: She appears in no acute distress. ENT: TMs no erythema. Throat no erythema. She has some mild tenderness to percussion of her sinuses. HEART: Regular rate and rhythm. No murmurs. LUNGS: Clear to auscultation. IMPRESSION/REPORT/PLAN Sinusitis and postnasal drip. PLAN: I am going to have her take some Cefdinir to see if possibly there was a resistant bacteria. She is allergic to amoxicillin so I talked about a possible reaction. She says that she thinks her reaction to amoxicillin was just a rash so we will have her have some Benadryl on hand. If she does develop a rash or any side effects of the medicine, she will take the Benadryl and discontinue it and letus know. I will have her use a nasal saline spray as a decongestant. If her symptoms worsen or do not improve with this therapy, she will let us know. Otherwise, follow up as needed. Jostin Bee PA-C/kyleigh Electronically Signed By: JOSTIN BEE PA-C On: 07/05/2014 12:19 PM Source: [facility] MHSDOLBEYNONRADSYS Document Id: [id number] TAL LAPPER documented in this encounter Miscellaneous Notes Miscellaneous - Jostin Bee P.A.-C. - 07/05/2014 9:44 AM CST Ambulatory Patient Summary [address] [id number] Visit Information Name: MAYRA SIMMONS [facility] Number: [id number] Current Date: 07/05/2014 09:44:10 Physicians Attending Provider: JOSTIN BEE PA-C Primary [...] (Calcium 600+D) Oral, two times a day cefdinir (cefdinir 300 mg oral capsule) 1 cap, Oral, two times a day x 10 day(s) [address] [phone] glucosamine-chondroitin (glucosamine-chondroitin) once a day Misc Prescription [...] the Following Medications: Medication list as of 07-05-14 09:44 Attention: If you have any medications at [...] Electronically Signed By: JOSTIN BEE PA-C Signed On:05-JUL-2014 09:43:57 Your Allergies & Intolerances Substance Reaction Symptoms [...] Your Upcoming Appointments Date Time Location Provider 08/02/2014 09:30 [facility] Attention: Contact your local Clinic if further appointment detail needed. Your Goals/Additional instructions: Source: [facility] POWERCHART Document Id: [id number] TAL LAPPER Miscellaneous - Jostin Bee P.A.-C. - 07/05/2014 9:44 AM CST Ambulatory Discharge Medication List [address] [id number] Visit Information Name: MARLINEPRUDENCEMAYRA [facility] Number: [id number] Visit Date: 07/05/2014 09:44:08 Attending Provider: JOSTIN BEE PA-C Primary Care [...] (Calcium 600+D) Oral, two times a day cefdinir (cefdinir 300 mg oral capsule) 1 cap, Oral, two times a day x 10 day(s) New Routed to [address] [phone] glucosamine-chondroitin (glucosamine-chondroitin) once a day Misc Prescription [...] the Following Medications: Medication list as of 07-05-14 09:44 Attention: If you have any medications at [...] Electronically Signed By: JOSTIN BEE PA-C Signed On:05-JUL-2014 09:43:57 Additional Information: Source: [facility] POWERCHART Document Id: [id number] TAL LAPPER Miscellaneous - Ling Torrez L.PZeferino - 07/05/2014 8:43 AM CST Adult Billing Services Manager Intake/History Adult Billing Services Manager Intake/History Entered On: 07/05/2014 8:47 CRYSTAL LAPPER Performed On: 07/05/2014 8:43 CRYSTAL LAPPER by LING TORREZ FLOOR TRADER Intake Chief Complaint : cough for 11 days- fairly dry Temperature Core : 37 DegC(Converted to: 98.6 DegF) Peripheral Pulse Rate : 84 /min Respiratory Rate : 12 /min (LOW) Heart Rhythm : Regular Systolic Blood Pressure : 120 mmHg Diastolic Blood Pressure : 70 mmHg NIBP Mean : 87 mmHg BP Location : Right upper extremity Blood Pressure Cuff Size : Regular SpO2 : 99 % Oxygen Therapy : Room air Actual Weight : 86.5 kg(Converted to: 190 lb 11 oz) Weight Source : Standing scale Dosing Weight Clinic : 86.5 kg LING TORREZ LPN - 07/05/2014 8:43 CRYSTAL LAPPER General Info Information Given By : Patient Languages : Jordanian Is Patient Female and 13-50 no hysterectomy : LING Holt LPN - 07/05/2014 8:43 CRYSTAL LAPPER Subjective Pain Symptoms : No LING TORREZ LPN - 07/05/2014 8:43 CRYSTAL LAPPER Dependent Habits Tobacco Use/Currently Using : No Exposure to Tobacco Smoke : Other: quit 03/1994 Smoking Status : Former smoker LING TORREZ LPN - 07/05/2014 8:43 CRYSTAL LAPPER Caffeine Use Grid Caffeine Use : Current Type : Chocolate, Soft drinks, Tea Frequency : Occasionally LING TORREZ LPN - 07/05/2014 8:43 CRYSTAL LAPPER Recreational Drug Use Grid Drug Use : None LING TORREZ LPN - 07/05/2014 8:43 CRYSTAL LAPPER ID Screen Drug Resistant Organism : No Travel Within Last 21 Days : LING Holt LPN - 07/05/2014 8:43 CRYSTAL LAPPER Source: [facility] POWERCHART Document Id: [id number] CRYSTAL LAPPER!38 TAL LAPPER documented in this encounter Plan of Treatment Upcoming Encounters Date Type Specialty Care Team Description 03/25/2022 Office Visit Family Medicine Leslie Gonzalez M.D. [address] [place] [address] [phone] (Wo rk) documented as of this encounter Visit Diagnoses Not on filedocumented in this encounter
--- OUTSIDE RECORDS SUMMARY | 2022-03-22 15:50 | XMS_ITS | Encounter Summary ---
:1950 Author Organization [facility] Address [address] [place] [address] Care Team Providers Name Role Phone Unavailable Primary Care Provider Unavailable Encounter Details Date Type Department Care Team Description 10/31/2013 Hospital Encounter HX [facility] Betzy Barrera, INDUSTRIAL ORGANIZATIONAL PSYCHOLOGIST, C.N.P. [address] [place] [address] (Wo rk) Social History Tobacco Use Types Packs/Day Years Used Date Smoking Tobacco: Never Assessed Alcohol Habits Answer Date Recorded How often do you have a drink containing 4 or more times a w [place] 10/05/2021 alcohol? How many drinks containing alcohol [...] or relatives? How often do you attend yarsani or 1 to 4 times per year 07/2021 rastafari services? Do you belong to any clubs or Yes 10/05/2021 organizations such as yarsani groups, unions, fraternal or athletic groups, or [...] or slept in a prison (including now)? Sex Assigned at Date Recorded Female 03/07/2018 9:31 AM CDT documented as of this encounter Last Filed Vital Signs Vital Sign [place] Time Taken Comments Blood Pressure 128/78 10/31/2013 8:09 AM CDT Pulse 64 10/31/2013 8:05 AM CDT Temperature - - Respiratory Rate 16 10/31/2013 8:05 AM CDT Oxygen Saturation - - Inhaled Oxygen Concentration - - Weight 87.4 kg (192 lb 10.9 oz) 10/31/2013 8:05 AM CDT Height 168.5 cm (5' 6.34) 10/31/2013 8:09 AM CDT Body Mass Index 30.78 10/31/2013 8:05 AM CDT documented in this encounter [...] documented as of this encounter Progress Notes Chencho Barrera, INDUSTRIAL ORGANIZATIONAL PSYCHOLOGIST, C.N.P. - 10/31/2013 7:53 AM CDT [id number] CHIEF COMPLAINT/REASON FOR VISIT 1. Establish care. 2. Hypercholesterolemia. 3. Gastroesophageal reflux disease. 4. Due for preventive services. HISTORY OF PRESENT ILLNESS 1. Steph is here to establish care. She previously saw Dr. Hutchinson. 2. She has history of hypercholesterolemia. She is due for fasting lipids and AST today. She is currently on Lipitor 40 mg daily. Refill will be provided. 3. GERD. She states Protonix 40 mg twice daily is working well. She will be needing refill. 4. Preventive services. She is due for mammogram and Pneumovax both will be done today. MEDICATIONS See depart summary from today. ALLERGIES Amoxicillin. Levaquin. Lyrica. Morphine. Piroxicam. SYSTEMS REVIEW Positive for that mentioned in the history of present illness and noted in the past medical history in the EMR. All other systems were reviewed and were negative. PAST MEDICAL/SURGICAL HISTORY Arthritis. Degenerative disc disease. GERD. Hypercholesterolemia. Neuropathy. Partial colectomy. Optic nerve stroke. PAST SURGICAL HISTORY: Hysterectomy with bilateral salpingo-oophorectomy. Appendectomy. Carpal tunnel release. Excision mass right leg. Colon resection. PREVENTIVE: Due for mammogram and Pneumovax, both will be done today. She will schedule for DEXA scan. SOCIAL HISTORY She does not smoke. Rare alcohol. FAMILY HISTORY See EMR. VITAL SIGNS See EMR. PHYSICAL EXAMINATION GENERAL: In general, the patient is a pleasant female appears her stated age. SKIN: Without lesion. EYES: PERRLA. EOMs intact. Fundi sharp discs. Conjunctiva and lids normal. ENT: Tympanic membranes clear bilaterally. Nasal mucosa without erythema or congestion. Mouth without erythema or exudate. LYMPH NODES: Neck: Supple without adenopathy, no thyromegaly. Carotid pulses are equal bilaterally. PERIPHERAL VESSELS: Femoral, dorsal, pedal and posterior tibial pulses are equal. HEART: Regular rate and rhythm without murmur. LUNGS: Clear to auscultation, good inspiratory effort. ABDOMEN: Soft, nontender, no palpable mass, no hepatosplenomegaly. SPINE: Normal range of motion. No CVA tenderness. JOINTS: Normal range of motion. EXTREMITIES: Warm, dry, no cyanosis or peripheral edema. MENTAL: Alert and oriented times three. NEUROLOGIC: Deep tendon reflexes are +2 and symmetrical. IMPRESSION/REPORT/PLAN 1. Establish care. 2. Hypercholesterolemia. Checking fasting lipids and AST. Refill on Lipitor 40 mg daily. 3. Gastroesophageal reflux disorder. Refill on Protonix 40 mg 1 twice daily. 4. Preventive Services. Mammogram and Pneumovax done today. Mammogram results will be mailed to her with breast exam. Chencho Barrera CNP/kyleigh Electronically Signed By: CHENCHO BARRERA CNP On: 10/31/2013 03:58 PM Source: [facility] MHSDOLBEYNONRADSYS Document Id: [id number] documented in this encounter Miscellaneous Notes Miscellaneous - Chencho Barerra APRN, C.N.P. - 11/01/2013 9:06 AM CDT Schedule Follow-Up Visit 01 Nov 2013 STEPH SIMMONS [address] [facility] [id number] Dear STEPH SIMMONS, Thank you for choosing [facility] for your health care needs. You recently had laboratory work performed to assess your overall health. This letter contains the results of your testing and standard ranges to help explain the results. Gluclose and triglycerides are mildy elevated. Watch diet and work on regular exercise. HDL (good cholesterol) is excellent. I would recommend follow-up as we previously discussed. If you have questions prior to our appointment, please contact our office. Result Name Current Result Previous Result Normal Range TSH, Sensitive-Scott (mIU/L) 1.0 10/31/2013 0.7 10/31/2012 0.3-5.0 - AST (unit/L) 10/31/2013 8 - 43 BUN (mg/dL) (H) 23 10/31/2013 6 - 20 Creatinine (mg/dL) 0.8 10/31/2013 0.7 - 1.2 Potassium Lvl (mmol/L) 4.6 10/31/2013 3.5 - 4.8 Sodium Lvl (mmol/L) 142 10/31/2013 135 - 145 Chloride (mmol/L) 100 10/31/2013 100 - 108 CO2 (mmol/L) 29 10/31/2013 22 - 30 Calcium Lvl (mg/dL) 10.0 10/31/2013 8.5 - 10.5 Glucose Fasting (mg/dL) (H) 107 10/31/2013 70 - 99 Cholesterol (mg/dL) (H) 201 10/31/2013 0 - 200 HDL (mg/dL) (H) 100.0 10/31/2013 40.0 - 60.0 Trig (mg/dL) (H) 187 10/31/2013 0 - 150 LDL Calculated (mg/dL) 64 10/31/2013 0 - 100 EGFR (MDRD) (mL/min) >60 10/31/2013 Sincerely, CHENCHO BARRERA [address] [place] [address] Electronic Signature Electronically Signed By: CHENCHO BARRERA CNP On: 01 Nov 2013 This document has images extracted. Source: [facility] POWERCHART Document Id: [id number] Electronically signed by Conversion, [facility] [employer] Land Officer [id number] at 11/01/2016 8:59 PM CDT Miscellaneous - Chencho Barrera, INDUSTRIAL ORGANIZATIONAL PSYCHOLOGIST, C.N.P. - 10/31/2013 8:16 AM CDT Ambulatory Patient Summary [address] [place], [place] [phone] Visit Information Name: STEPH SIMMONS [facility] Number: [id number] Current Date: 10/31/2013 08:16:47 Physicians Attending Provider: CHENCHO BARRERA CNP Primary Care Provider: PCP, UNASSIGNED - FB STEPH SIMMONS has been given the following [...] once a day (at bedtime) Routed to [address] [id number] bifidobacterium infantis (Align 4 mg oral capsule) [...] 1 Tablet(s), Oral, two times a day Routed to [address] [id number] senna (senna 8.6 mg oral tablet) 1 Tablet(s), Oral, two times a day as needed for constipation Stop Taking the Following Medications: Medication list as of 10-31-13 08:16 Attention: If you have any medications at home that are not on this list, DO NOT take them until youcontact your provider for clarification. Give a copy of your medication list to your primary care provider. Update your medication list any time medications or doses are changed and carry your medication list at all times in case of emergency. Electronically Signed By: CHENCHO BARRERA CNP Signed On:31-OCT-2013 08:16:27 Your Allergies & Intolerances Substance Reaction Symptoms [...] local Clinic if further appointment detail needed. [id number] GERD (Adult) The esophagus is a tube that carries food from the mouth to the stomach. A valve at the lower end ofthe esophagus prevents stomach acid from flowing upward. If this valve does not work properly, acid from the stomach enters the esophagus. If this occurs over and over, the acid will injure the lining of the esophagus. This condition is called GERD (gastroesophageal reflux disease) or acid reflux. When stomach acid flows upward into the esophagus, it causes burning, pressure or sharp pain in the upper abdomen or mid to lower chest. The pain can spread to the neck, back, or shoulder, similar to heart pain (angina). There may be belching, an acid taste in the back of the throat, chronic cough, or sore throat or hoarseness. GERD symptoms often occur during the day after a big meal, but it can also occur at night whenlying down. Smoking, as well as drinking alcohol, increases the risk of GERD. GERD is a chronic condition. Once it begins, it is often lifelong. Treatment includes changes in eating habits and the use of acid kyle medications to decrease the amount of acid in the stomach. Symptoms often improve with treatment, but if treatment is stopped, the symptoms usually return after a few months. So most persons with GERD will need to continue treatment. HOME CARE: ?? Take the prescribed acid kyle medication for the full course of treatment even if you begin tofeel better sooner. This medication can take up to several days to fully control your symptoms. If you cant afford the prescribed medication, you can try fghc-[id number]-[id number] acid blockers, such as Pepcid AC, Tagamet, Zantac, or Aciphex. If these do not relieve your symptoms, a stronger acid-kyle can be tried, such as Prilosec OTC. ?? You can use antacids, such as Tums, Rolaids, Mylanta, or Maalox, for pain. This will be useful the first few days after starting acid blockers when the blockers havent started working yet. Follow the directions on the label. Liquid antacids may work better than tablets. Note that antacids can interfere with absorption of certain medications. Specifically, do not take Tagamet (cimetidine), Zantac (ranitidine), or Carafate (sucralfate) within 1 hour of taking an antacid. Talk with your pharmacist if you have any questions. ?? Limit or avoid fatty, fried, and spicy foods, as well as coffee, chocolate, mint, and foods with high acid content such as tomatoes and citrus fruit and juices (orange, grapefruit, lemon). ?? Avoid alcohol and smoking. ?? Dont eat large meals, especially at night. Frequent, smaller meals are best. Do not lie down right after eating. And dont eat anything 3 hours before going to bed. ?? If you are overweight, losing weight will reduce symptoms. Women should not wear corsets or girdles because this increases pressure on the stomach and worsens reflux. ?? If your symptoms occur during sleep, use a foam wedge to elevate your upper body (not just your head.) Or, place 4 blocks under the head of your bed. FOLLOW UP with your doctor or as advised by our staff. Further testing may be needed. If you do not begin to improve over the next 4 days, contact your doctor. If you had an x-ray, CT scan, or ECG (electrocardiogram), it will be reviewed by a specialist. Youll be notified of any new findings that affect your care. GET PROMPT MEDICAL ATTENTION if any of the following occur: ?? Stomach pain gets worse or moves to the lower right abdomen (appendix area) ?? Chest pain appears or gets worse, or spreads to the back, neck, shoulder, or arm ?? Frequent vomiting (cant keep down liquids) ?? Blood in the stool or vomit (red or black in color) ?? Feeling weak or dizzy, fainting, or trouble breathing Fever of 100.4??F (38??C) or higher, or as directed by your healthcare provider ?? [id number] [facility], [address] [place] [address], [place] [address]. All rights reserved. This information is not intended as a substitute for professional medical care. Always follow your healthcare professional's instructions. Your Goals/Additional instructions: This document has images extracted. Please consider using [employer] for all your patient education needs. Source: [facility] POWERCHART Document Id: [id number] Miscellaneous - Chencho Barrera APRN, C.N.P. - 10/31/2013 8:16 AM CDT Ambulatory Discharge Medication List [address] [place], [place] [phone] Visit Information Name: STEPH SIMMONS [facility] Number: [id number] Visit Date: 10/31/2013 08:16:45 Attending Provider: CHENCHO BARRERA BACKEND PYTHON DEVELOPER Primary Care Provider: PCP, UNASSIGNED - FB STEPH SIMMONS has been given the following [...] once a day (at bedtime) Routed to [address] [id number] bifidobacterium infantis (Align 4 mg oral capsule) [...] 1 Tablet(s), Oral, two times a day Routed to [address] [place], [place] [id number] senna (senna 8.6 mg oral tablet) 1 Tablet(s), Oral, two times a day as needed for constipation Stop Taking the Following Medications: Medication list as of 10-31-13 08:16 Attention: If you have any medications at home that are not on this list, DO NOT take them until youcontact your provider for clarification. Give a copy of your medication list to your primary care provider. Update your medication list any time medications or doses are changed and carry your medication list at all times in case of emergency. Electronically Signed By: CHENCHO BARRERA BACKEND PYTHON DEVELOPER Signed On:31-OCT-2013 08:16:27 Additional Information: Source: [facility] [employer] Document Id: [id number] Electronically signed by Chencho Barrera, INDUSTRIAL ORGANIZATIONAL PSYCHOLOGIST, C.N.P. at 10/31/2013 8:16 AM CDT Miscellaneous - Chinyere Martínez, L.P.N. - 10/31/2013 8:09 AM CDT Ambulatory Vitals Height Weight Ambulatory Vitals Height Weight Entered On: 10/31/2013 8:10 CDT Performed On: 10/31/2013 8:09 CDT by CHINYERE MARTÍNEZ LPN Vitals/Ht/Wt Systolic Blood Pressure : 128 mmHg Diastolic Blood Pressure : 78 mmHg NIBP Mean : 95 mmHg BP Location : Left upper extremity Blood Pressure Cuff Size : Large Height : 168.5 cm(Converted to: 5 ft 6 inch(es), 66 inch(es)) CHINYERE MARTÍNEZ LPN - 10/31/2013 8:09 CDT Source: [facility] POWERCHART Document Id: [id number] CDT!8 Miscellaneous - Chinyere Martínez L.P.N. - 10/31/2013 8:05 AM CDT Adult Obstetrics Nurse Practitioner Intake/History Adult Obstetrics Nurse Practitioner Intake/History Entered On: 10/31/2013 8:07 CDT Performed On: 10/31/2013 8:05 CDT by CHINYERE MARTÍNEZ LPN Intake Chief Complaint : Medication review. Is fasting. currently taking Leg cramp for cramps in legs. Quesitioning if it could be Lipitor. Temperature Core : 36.4 DegC(Converted to: 97.5 DegF) (LOW) Peripheral Pulse Rate : 64 /min Respiratory Rate : 16 /min Heart Rhythm : Regular Systolic Blood Pressure : 142 mmHg (HI) Diastolic Blood Pressure : 84 mmHg NIBP Mean : 103 mmHg BP Location : Left upper extremity Blood Pressure Cuff Size : Large Height : 168.5 cm(Converted to: 5 ft 6 inch(es), 66 inch(es)) Actual Weight : 87.4 kg(Converted to: 192 lb 11 oz) Weight Source : Standing scale Dosing Weight Clinic : 87.4 kg Clinic BSA : 2.02 Body Mass Index : 30.78 kg/m2 CHINYERE MARTÍNEZ LPN - 10/31/2013 8:05 CDT General Info Information Given By : Patient Languages : Italian CHINYERE MARTÍNEZ LPN - 10/31/2013 8:05 CDT Subjective Pain Symptoms : No CHINYERE MARTÍNEZ LPN - 10/31/2013 8:05 CDT Dependent Habits Tobacco Use/Currently Using : No Exposure to Tobacco Smoke : Other: quit 03/1994 Smoking Status : Former smoker CHINYERE MARTÍNEZ LPN - 10/31/2013 8:05 CDT Caffeine Use Grid Caffeine Use : Current Type : Chocolate, Soft drinks, Tea Frequency : Occasionally CHINYERE MARTÍNEZ LPN - 10/31/2013 8:05 CDT Recreational Drug Use Grid Drug Use : None CHINYERE MARTÍNEZ LPN - 10/31/2013 8:05 CDT [facility] POWERCHART Document Id: [id number] CDT!35 Miscellaneous - Chinyere Martínez L.P.N. - 10/31/2013 8:04 AM CDT Health Assessment Health Assessment Entered On: 10/31/2013 8:05 CDT Performed On: 10/31/2013 8:04 CDT by CHINYERE MARTÍNEZ LPN Health Assessment Complete Health Assessment Complete or Modified : Annual Health Assessment Annual Health Assessment Completed : Yes CHINYERE MARTÍNEZ LPN - 10/31/2013 8:04 CDT Nutrition Nutrition Risk Factors by History Adult : None CHINYERE MARTÍNEZ LPN - 10/31/2013 8:04 CDT Functional Current Daily Living Assistance : None CHINYERE MARTÍNEZ LPN - 10/31/2013 8:04 CDT Dependent Habits Tobacco Use/Currently Using : No Exposure to Tobacco Smoke : Other: quit 03/1994 Smoking Status : Former smoker CHINYERE MARTÍNEZ LPN - 10/31/2013 8:04 CDT Caffeine Use Grid Caffeine Use : Current Type : Chocolate, Soft drinks, Tea Frequency : Occasionally CHINYERE MARTÍNEZ LPN - 10/31/2013 8:04 CDT Recreational Drug Use Grid Drug Use : None CHINYERE MARTÍNEZ LPN - 10/31/2013 8:04 CDT Psychosocial Domestic Abuse Concerns : None Hindu Preference : Unknown CHINYERE MARTÍNEZ LPN - 10/31/2013 8:04 CDT Advance Directive Advanced Directives : Yes CHINYERE MARTÍNEZ LPN - 10/31/2013 8:04 CDT Educ Needs Learning Style Preference Adult Grid Patient : Verbal explanation, Printed materials Family : Verbal explanation, Printed materials CHINYERE MARTÍNEZ LPN - 10/31/2013 8:04 CDT Source: [facility] POWERCHART Document Id: [id number] CDT!29 documented in this encounter Plan of Treatment Upcoming Encounters Date Type Specialty Care Team Description 03/25/2022 Office Visit Family Medicine Leslie Gonzalez M.D. [address] [place], [place] [address] [phone] (Wo rk) documented as of this encounter Procedures Procedure Name Priority Date/Time Associated Comments Diagnosis LIPID PANEL, S Routine 10/31/2013 9:08 Results fo r this AM CDT procedure are i n the results section. AUTOMATED DIFFERENTIAL, Routine 10/31/2013 9:08 R esults for this B AM CDT procedure are i n the results section. CBC WITH DIFFERENTIAL, B Routine 10/31/2013 9:08 Results for this AM CDT procedure are i n the results section. ASPARTATE Routine 10/31/2013 9:08 Results for this AMINOTRANSFERASE (AST), AM CDT proc edure are in S/P the results section. THYROID-STIMULATING Routine 10/31/2013 9:08 Resul ts for this HORMONE-SENSITIVE AM CDT procedure are in (S-TSH) the results section. BASIC METABOLIC PANEL, Routine 10/31/2013 9:08 Re sults for this S/P AM CDT procedure are i n the results section. documented in this encounter Results Automated Differential (10/31/2013 9:08 AM CDT) P athologist Signature Neutro % 61.5 34.0 - POWERCHART 71.1 Lymphocytes % 26.3 19.3 - POWERCHART 51.7 HX Bradley % 8.2 4.7 - 12.5 POWERCHART HX Eos % 3.3 0.7 - 5.8 POWERCHART HX Baso % 0.7 0.1 - 1.2 POWERCHART Absolute 2.78 1.70 - POWERCHART Neutrophils 7.00 109L Lymphocytes 1.19 0.90 - POWERCHART 2.90 X109L Monocytes 0.37 0.30 - POWERCHART 0.90 X109L Eosinophils 0.15 0.05 - POWERCHART 0.50 X109L Absolute 0.03 0.00 - POWERCHART Basophil 0.30 X109L Specimen Anatomical Collection Method Collection Time Receive d Time (Source) Location / / Volume Laterality Blood 10/31/2013 9:08 AM 4 9:08 CDT AM CDT Chencho Barrera APRN, C.N.P. LAB BLOOD ADD-ON Performing Organization Address City/[facility]/ZIP Code Phon e Number POWERCHART CBC with Differential (10/31/2013 9:08 AM CDT) athologist Signature Leukocytes 4.5 3.4 - 10.5 POWERCHART X109L Erythrocytes 4.33 3.90 - POWERCHART 5.03 F1024U Hemoglobin 13.9 12.0 - POWERCHART 15.5 GDL Hematocrit 41.7 34.9 - POWERCHART 44.5 MCV 96.3 82.0 - POWERCHART 98.0 FL Platelet Count 252 150 - 450 POWERCHART X109L HX RDW 11.9 11.9 - POWERCHART 15.5 HXDifferential? Auto POWERCHART Specimen (Source) Anatomical Collection Method Collection Time Re ceived Time Location / / Volume Laterality Blood 10/31/2013 9:08 AM CDT Lisa Gray APRNN.P. LAB BLOOD ADD-ON Performing Organization Address [facility] Phon e Number POWERCHART Thyroid-Stimulating Hormone-Sensitive (s-TSH) (10/31/2013 9:08 AM CDT) athologist Signature TSH, Sensitive 1.0 0.3 - 5.0 POWERCHART MIUL Comment: Test Performed by: [place] [address] Joiners Supervisor: Wolf stubbs III, M.D. Specimen (Source) Anatomical Collection Method Collection Time Re ceived Time Location / / Volume Laterality Blood 10/31/2013 9:08 AM CDT Chencho Barrera APRN C.N.P. LAB BLOOD ADD-ON Performing Organization Address City/[facility] Code Phon e Number POWERCHART (ABNORMAL) BMP (Basic Metabolic Panel) (10/31/2013 9:08 AM CDT) P athologist Signature BUN (Blood Urea 23 (H) 6 - 20 POWERCHART Nitrogen), S MGDL Creatinine 0.8 0.7 - 1.2 POWERCHART MGDL Potassium, S 4.6 3.5 - 4.8 POWERCHART MMOLL Sodium, S 142 135 - 145 POWERCHART MMOLL Chloride, S 100 100 - 108 POWERCHART MMOLL CO2 Total 29 22 - 30 POWERCHART MMOLL Calcium, Total, 10.0 8.5 - 10.5 POWERCHART S MGDL Glucose, 107 (H) 70 - 99 POWERCHART Fasting, S MGDL HXeGFR (MDRD) >60 MLMIN POWERCHART eGFR >60 MLMIN POWERCHART Black/ Specimen (Source) Anatomical Collection Method Collection Time Re ceived Time Location / / Volume Laterality Blood 10/31/2013 9:08 AM CDT Chencho Barrera APRN, C.N.P. LAB BLOOD ADD-ON Performing Organization Address City/State/ZIP Code Phon e Number POWERCHART (ABNORMAL) Lipid Panel (10/31/2013 9:08 AM CDT) [facility] Method Time Signature Cholesterol, 201 (H) 0 - 200 POWERCHART Total MGDL HX HDL 100.0 (H) 40.0 - POWERCHART 60.0 MGDL Triglycerides 187 (H) 0 - 150 POWERCHART MGDL Calculated LDL 64 0 - 100 POWERCHART MGDL Specimen (Source) Anatomical Collection Method Collection Time Re ceived Time Location / / Volume Laterality Blood 10/31/2013 9:08 AM CDT Chencho Barrera APRN, C.N.P. LAB BLOOD ADD-ON Performing Organization Address City/State/ZIP Code Phon e Number POWERCHART AST (Aspartate Aminotransferase) (10/31/2013 9:08 AM CDT) [facility] Method Time Signature Aspartate 28 8 - 43 POWERCHART Aminotransferase UNITL (AST), S Specimen (Source) Anatomical Collection Method Collection Time Re ceived Time Location / / Volume Laterality Blood 10/31/2013 9:08 AM CDT Chencho Barrera APRN, C.N.P. LAB BLOOD ADD-ON Performing Organization Address City/State/ZIP Code Phon e Number POWERCHART documented in this encounter Visit Diagnoses Not on filedocumented in this encounter
--- OUTSIDE RECORDS SUMMARY | 2022-03-22 15:50 | XMS_ITS | Encounter Summary ---
:1950 Author Organization [facility] Address [address] [place] [address] Care Team Providers Name Role Phone Unavailable Primary Care Provider Unavailable Encounter Details Date Type Department Care Team Description 04/03/2013 Hospital Encounter HX [facility] Pawel Serna M .D. Social History Tobacco Use Types Packs/Day Years Used Date Smoking Tobacco: Never Assessed Alcohol Habits Answer Date Recorded How often do you have a drink containing 4 or more times a w marshall 10/05/2021 alcohol? How many drinks containing alcohol [...] of this encounter Miscellaneous Notes Miscellaneous - Pawel Serna M.D. - 04/03/2013 6:02 PM CDT Normal Results Letter 03 April 2013 MAYRA SIMMONS [address] [facility] [id number] Dear MAYRA SIMMONS, I am pleased to report that your results from the following diagnostic tests are normal. Please follow up with us as we discussed during your visit or sooner if you have any concerns. If you have questions or concerns, please do not hesitate to call our office. Continue Lipitor. Recheck in one year. Result Name Current Result Previous Result Normal Range AST (unit/L) 32 04/03/2013 30 01/02/2013 27 11/24/2012 23 10/09/2012 8 - 43 Cholesterol (mg/dL) 166 04/03/2013 179 01/02/2013 171 11/24/2012 (H) 300 10/09/2012 0 - 200 Trig (mg/dL) 120 04/03/2013 135 01/02/2013 (H) 159 11/24/2012 124 10/09/2012 0 - 150 HDL (mg/dL) (H) 73.0 04/03/2013 (H) 78.0 01/02/2013 (H) 78.0 11/24/2012 (H) 79.0 10/09/2012 40.0 - 60.0 LDL Calculated (mg/dL) 69 04/03/2013 74 01/02/2013 61 11/24/2012 (H) 196 10/09/2012 0 - 100 Sincerely, PAWEL SERNA [address] [place] [address] Electronic Signature Electronically Signed By: PAWEL SERNA MD On: 03 April 2013 This document has images extracted. Source: [facility] POWERCHART Document Id: [id number] Electronically signed by Conversion, [facility] Wildlife Officer [id number] at 11/03/2016 3:08 AM CDT documented in this encounter Plan of Treatment Upcoming Encounters Date Type Specialty Care Team Description 03/25/2022 Office Visit Family Medicine Leslie Gonzalez M.D. [address] [place] [phone] (Wo rk) documented as of this encounter Procedures Procedure Name Priority Date/Time Associated Comments Diagnosis LIPID PANEL, S Routine 04/03/2013 8:21 Results fo r this AM CDT procedure are i n the results section. ASPARTATE Routine 04/03/2013 8:21 Results for this AMINOTRANSFERASE (AST), AM CDT proc edure are in S/P the results section. documented in this encounter Results AST (Aspartate Aminotransferase) (04/03/2013 8:21 AM CDT) [facility] gist Method Time Signature Aspartate 32 8 - 43 POWERCHART Aminotransferase UNITL (AST), S Specimen (Source) Anatomical Collection Method Collection Time Re ceived Time Location / / Volume Laterality Blood 04/03/2013 8:21 AM CDT Pawel Serna M.D. LAB BLOOD ADD-ON Performing Organization Address City/State/ZIP Code Phon e Number POWERCHART (ABNORMAL) Lipid Panel (04/03/2013 8:21 AM CDT) [facility] gist Method Time Signature Cholesterol, 166 0 - 200 POWERCHART Total MGDL HX HDL 73.0 (H) 40.0 - POWERCHART 60.0 MGDL Triglycerides 120 0 - 150 POWERCHART MGDL Calculated LDL 69 0 - 100 POWERCHART MGDL Specimen (Source) Anatomical Collection Method Collection Time Re ceived Time Location / / Volume Laterality Blood 04/03/2013 8:21 AM CDT Pawel Serna M.D. LAB BLOOD ADD-ON Performing Organization Address City/State/ZIP Code Phon e Number POWERCHART documented in this encounter Visit Diagnoses Not on filedocumented in this encounter
--- OUTSIDE RECORDS SUMMARY | 2022-03-22 15:50 | XMS_ITS | Encounter Summary ---
:1950 Author Organization [facility] Address [address] [place] [address] Care Team Providers Name Role Phone Unavailable Primary Care Provider Unavailable Encounter Details Date Type Department Care Team Description 11/05/2013 Hospital Encounter HX [facility] BONE DENS Betzy Brennan, STREET LIGHT REPAIRER, C.N.P[facility] [address] [place] [address] (Wo rk) Social History Tobacco Use Types Packs/Day Years Used Date Smoking Tobacco: Never Assessed Alcohol Habits Answer Date Recorded How often do you have a drink containing 4 or more times a w [place] 10/05/2021 alcohol? How many drinks containing alcohol [...] Office Visit Family Medicine Leslie Gonzalez M.D. [address] [place] [phone] (Wo rk) documented as of this encounter Visit Diagnoses Not on filedocumented in this encounter
--- OUTSIDE RECORDS SUMMARY | 2022-03-22 15:51 | XMS_ITS | Encounter Summary ---
:1950 Author Organization [facility] Address [address] [place] [address] Care Team Providers Name Role Phone Unavailable Primary Care Provider Unavailable Encounter Details Date Type Department Care Team Description 10/26/2012 Hospital Encounter HX [facility] PMTR Ken Dalton M.D. [address] [place] [address], [address] [place], [place] [phone] (Wo rk) Social History Tobacco Use Types [...] Sign Reading Time Taken Comments Blood Pressure 132/64 10/26/2012 3:56 PM CDT Pulse - - Temperature - - Respiratory Rate - - Oxygen Saturation - - Inhaled Oxygen Concentration - - Weight 87.9 kg (193 lb 12.6 oz) 10/26/2012 3:56 PM CDT Height - - Body Mass Index 31.33 10/09/2012 10:55 AM CDT documented in this encounter Medications at Time of Discharge Medication Sig Dispensed Refills Start Date End Date CALCIUM CARBONATE/VITAMIN Take by mouth 2 0 01/27 D3 (CALCIUM 600 WITH (two) times a day. VITAMIN D3 ORAL) GLUCOSAMINE/CHONDROITIN daily. 0 10/05/2010 SULF A [...] encounter Progress Notes Charito Dalton M.D. - 10/26/2012 3:43 PM CDT [id number] CHIEF COMPLAINT / REASON FOR VISIT Low back and bilateral lower extremity pain HISTORY OF PRESENT ILLNESS Ms. Simmons returns today in followup. I last saw her on February 11, 2012. She spent the winter in [place] and [place]. She reports that she was active over the winter hiking and walking as much as she could. She did very well following the L5-S1 interlaminar corticosteroid injection that was performed on January 26, 2012. She reports that over the past few months though the pain has been returning a more pronounced again. She describes pain that is located across her low back and then can radiate into the bilateral lower extremities when she is standing or walking. This pain radiates into the bilateral gluteal region, and posterior thighs to the level the knees. Occasionally it can extend to the posterior legs and posterolateral legs level of the ankle. It does not extend into the feet. She thinks the left and right side is affected equally. This typically starts after 2 blocks and is persistent if she keeps walking. If she sits the pain resolves almost immediately. She continues describe tingling her feet which is longstanding and has not changed. She denies any focal weakness in her lower extremities, or changes in her bowel or bladder habits other than occasional constipation. He denies any fever or chills, recent unintentional weight loss. PHYSICAL EXAMINATION GENERAL: Pleasant 62-year-old female in no acute distress. NEURO: Oriented to person, place and time. Appropriate mood and affect. GAIT: Gait reveals normal emmanuel and stride. Toe and heel walking are normal. EXTREMITIES: Strength: All major muscle groups of the bilateral lower extremities have normal and symmetric muscle strength, bulk and tone. Reflexes: Patellar tendon 0/0, Achilles -2/-2. Plantar responses downgoing bilaterally. Straight leg raise is negative for radicular pain or paresthesias bilaterally. Straight leg raise does cause pain in the low back bilaterally. MUSCULOSKELETAL: SPINE: Relative preserved lumbar spine range of motion for age. Palpation: There istenderness to palpation over the right greater left lower lumbar paraspinals. JOINT RANGE OF MOTION: Preserved hip range of motion bilaterally. IMPRESSION/REPORT/PLAN 1. Low back and bilateral lower extremity pain, most consistent with lumbar spinal stenosis 2. Small fiber peripheral neuropathy Ms. Simmons's symptoms, examination, and imaging would all correlate with lumbar spinal stenosis asbeing the cause of her symptoms. She has had a variety of interventions to this point including meeting with Dr. Warren, spine surgeon, and he recommended continuing non-operative care. Her last epidural corticosteroid injection was in January 2012. She is inquiring about repeating that injection. I think that would be very reasonable to perform and we will schedule her for a L5-S1 interlaminar epidural corticosteroid injection. PLAN 1. I would like Ms. Simmons to return to the exercises that she was shown in physical therapy. Shehas not been doing them as regularly lately. She feels she has a good understanding of them and doesnot need to return to physical therapy at this time to be instructed on them again. Therefore, I am going to have her initiate these gradually. 2. She will continue using Tylenol and Aleve as needed for her discomfort. 3. We will plan on being in contact with Ms. Simmnos approximately 2 weeks following the L5-S1 interlaminar epidural corticosteroid injection and she knows to be in contact with us prior to that timeif she notes any worsening or worrisome symptoms which we went over in detail today. She voiced agreement and understanding with this plan. Total time 30 minutes and counseling time 20 minutes Charito Dalton M.D./adelfo Electronically Signed By: CHARITO DALTON MD On: 10/31/2012 02:59 PM Modified by and Electronically Signed by: CHARITO DALTON MD On: 10/31/2012 02:59 PM Source: [facility] MHSDOLBEYNONRADSYS Document Id: [id number] documented in this encounter Miscellaneous Notes Telephone Encounter - Monserrat Paris P.A.-C. - 11/01/2012 2:25 PM CDT Phone Message Document Contains Addenda Addendum by MONSERRAT PARIS on 02 Nov 2012 15:56:56 CDT scheduled for MRI on 11/06 Addendum by MONSERRAT PARIS on 02 Nov 2012 14:55:43 CDT LMTCB Addendum by CHARITO DALTON MD on 01 Nov 2012 14:28:53 CDT From: CHARITO DALTON MD To: MONSERRAT PARIS; Sent: 11/01/2012 14:28:53 CDT Subject: RE: Phone Message Yes, I did briefly discuss that with her and it could potentially be a thoracic radiculopathy. Please arrange for a thoracic spine MRI. Thanks. From: MONSERRAT PARIS To: CHARITO DALTON MD; Sent: 11/01/2012 14:25:41 CDT Subject: Phone Message Caller is: ( ) Patient ( ) Mother ( ) Father ( ) Spouse ( ) Daughter ( ) Son ( ) Pharmacy ( ) Other: Physician: Sha Patient MRN #: Reason for Call: Steph has been having some pain in her ribs, which she saw Dr. Serna about. Dr. Serna suggested that this could possibly be coming from her T spine and he wanted her to check with you about possibly having you look at that or having an MRI prior to her epidural injection on 11/13. Message: Advice/Action: Source used: ( ) Verbalizes [...] back cell phone number ( ) Source: [facility] POWERCHART Document Id: [id number] Electronically signed by Aaron [facility] Cable Engineer Outside Plant [id number] at 11/03/2016 1:45 PM CDT Miscellaneous - Charito Dalton M.D. - 10/26/2012 4:40 PM CDT Ambulatory Patient Summary [address] [address] Visit Information Name: STEPH SIMMONS [facility] Number: [id number] Current Date: 10/26/2012 16:40:22 Physicians Attending Provider: CHARITO DALTON MD Primary Care Provider: PAWEL SERNA MD Your Medications Here is a list of your medications. It is important to take your medications as directed. Use a pillbox or chart to help remind you to take your medications. Please let your doctor or nurse know if you have problems taking your medications. Medication/Strength Dose Route Frequency Indications/Special Instructions/Comments pantoprazole (Protonix 40 mg oral enteric coated [...] and feet, ankles Drug Levaquin hives Drug Your Problem List Problem Status Onset Comments Sprain/strain, lumbar Active 01/27/2010 Degenerative disc disease* Active Arthritis, unspecified* Active Esophageal reflux (GERD) Active Partial colectomy Active H/O: hysterectomy Active Neuropathy peripheral Active 02/23/2011 Hypercholesterolemia* Active Chest wall pain* Active 10/09/2012 Impaired Fasting Glucose Active Your Upcoming Appointments Date Time Location Reason Provider No Appointments found Your Goals/Additional instructions: Source: [facility] POWERCHART Document Id: [id number] Miscellaneous - Charito Dalton M.D. - 10/26/2012 4:40 PM CDT Ambulatory Depart Summary [address] [address] Visit Information Name: STEPH SIMMONS [facility] Number: [id number] Visit Date: 10/26/2012 16:40:21 Attending Provider: CHARITO DALTON MD Primary Care Provider: PAWEL SERNA MD STEPH SIMMONS has been given the following list of medications: Your Medications It is important to take your medications as directed. Use a pill box or chart to help remind you to take your medications. Please let your doctor or nurse know if you have problems taking your medications. Medication/Strength Dose Route Frequency Indications/Special Instructions/Comments pantoprazole (Protonix 40 mg oral enteric coated [...] your provider for clarification. Additional Information: Source: [facility] POWERCHART Document Id: [id number] Miscellaneous - Monserrat Paris PJamshid - 10/26/2012 3:56 PM CDT Adult Microgrinder Operator Intake/History Adult Microgrinder Operator Intake/History Entered On: 10/26/2012 15:57 CDT Performed On: 10/26/2012 15:56 CDT by MONSERRAT PARIS Intake Systolic Blood Pressure : 132 mmHg Diastolic Blood Pressure : 64 mmHg NIBP Mean : 87 mmHg BP Location : Left upper extremity Blood Pressure Cuff Size : Large Actual Weight : 87.9 kg(Converted to: 193 lb 13 oz) Weight Source : Standing scale Dosing Weight Clinic : 87.9 kg MONSERRAT PARIS - 10/26/2012 15:56 CDT General Info Information Given By : Patient Preferred Communication Mode : Verbal Languages : Irish MONSERRAT PARIS - 10/26/2012 15:56 CDT Subjective Pain Symptoms : No MONSERRAT PARIS - 10/26/2012 15:56 CDT Dependent Habits Tobacco Use/Currently Using : No Exposure to Tobacco Smoke : Other: quit 03/1994 Smoking Status : Never smoker MONSERRAT PARIS ZULY - 10/26/2012 15:56 CDT Caffeine Use Grid Caffeine Use : Current Type : Chocolate, Soft drinks, Tea Frequency : Daily MONSERRAT PARIS - 10/26/2012 15:56 CDT Recreational Drug Use Grid Drug Use : None MONSERRAT PARIS ZULY - 10/26/2012 15:56 CDT Source: [employer] Document Id: [id number] documented in this encounter Plan of Treatment Upcoming Encounters Date Type Specialty Care Team Description 03/25/2022 Office Visit Family Medicine Leslie Gonzalez M.D. [address] [place] [phone] (Wo rk) documented as of this encounter Visit Diagnoses Not on filedocumented in this encounter
--- OUTSIDE RECORDS SUMMARY | 2022-03-22 15:51 | XMS_ITS | Encounter Summary ---
:1950 Author Organization [facility] Address [address] [place] [address] Care Team Providers Name Role Phone Unavailable Primary Care Provider Unavailable Encounter Details Date Type Department Care Team Description 09/23/2011 Hospital Encounter HX [facility] PM[facility] Ken Dalton M.D. [address] [place] [address], [address] [place], [place] [id number] (Wo rk) Social History Tobacco Use Types Packs/Day Years Used Date Smoking Tobacco: Never Assessed Alcohol Habits Answer Date Recorded How often do you have a drink containing 4 or more times a w [place] 10/05/2021 alcohol? How many drinks containing [...] Sign Reading Time Taken Comments Blood Pressure 110/70 09/23/2011 8:17 AM CDT Pulse - - Temperature - - Respiratory Rate - - Oxygen Saturation - - Inhaled Oxygen Concentration - - Weight 89.4 kg (197 lb 1.5 oz) 09/23/2011 8:17 AM CDT Height - - Body Mass Index 32.64 09/21/2011 8:54 AM CDT documented in this encounter [...] encounter Progress Notes Charito Dalton M.D. - 09/23/2011 12:00 AM CDT [id number] CHIEF COMPLAINT / REASON FOR VISIT Right foot pain. HISTORY OF PRESENT ILLNESS Ms. Simmons is a pleasant 61-year-old female who I have seen in the past for left knee pain as well as symptoms consistent with spinal stenosis. She reports she has had bilateral foot pain for the past several months. She was seen by Dr. Stephens, Materials Management Manager, in [place], [place] where she spends the winter. She brought his notes in for my review today. Dr. Stephens had recommended a surgery consisting of a left metatarsal osteotomy, repair of tear and arthrodesis left second toe and potentially for the right second toe as well. Dr. Stephens performed laser treatment for Ms. Simmons as well as performed a corticosteroid injection into the right second intermetatarsal sulcus per his note. Ms. Simmons decided to defer any surgical intervention as she is leaving for [place] next week. However, the pain has been bothersome enough for her that it has been difficult for her to ambulate for long distances at a time and she is wondering there is any possible way she could have an injection as the injection that she had previously did help her for approximately one month. Ms. Simmons describes pain that is primarily located in the level of the MTP joints with the worst pain located the third MTP joint but also the second MTP joint and fourth MTP joints in the inner metatarsal region. She also has some pain in the plantar aspect of her foot as well. She reports that her second toe on the right is developing a flexion contracture. She has been taping her toes together which she does find to be helpful. She also has metatarsal relief pads which she has been using in her shoes which she finds to be helpful as well. She denies any shooting pain into the toes. She denies any warmth or erythema about either foot. She denies any swelling in either foot. She did have x-rays performed of her right foot yesterday which were negative for any osseous pathology. PHYSICAL EXAM GENERAL: Pleasant 61-year-old female in no acute distress. GAIT: Nonantalgic. There is a flexible right second hammertoe. There is no warmth or erythema about the foot. There is swelling noted. There is no swelling noted over the dorsum of foot. There is tenderness to palpation, most marked at the level of the third MTP joint but also in the second and third metatarsal bursa region on the left and over the third MTP joint. There is mild tenderness over the second MTP joint. There is also tenderness over the fourth MTP joint in between the third and fourth metatarsal heads. Negative Howie sign. IMPRESSION/REPORT/PLAN 1. Right foot pain. Ms. Simmons is developing a hammertoe deformity of the second digit. She is most tender today in the region of the third MTP joint and may be developing a capsulitis secondary to her hammertoe deformity of the second toe. 1. I recommend that she meet with Dr. Rhoades, Orthopedic Surgeon, here in [place] to get his opinion with respect to her symptoms and whether she would be a surgical candidate as this was discussed in [place]. Ms. Simmons is leaving for [place] in a few days and so we will arrange for that appointment to [facility] when she returns. 2. I would like Ms. Simmons to continue using extra wide shoes with a metatarsal relief pad. She was inquiring about the possibility of proceeding with a corticosteroid injection today with her discomfort and her leaving for [place] next week. I do think it would be reasonable to proceed with a right third MTP joint corticosteroid injection today as that is the area where the most discomfort is and she is likely developing a capsulitis with the hammertoe deformity of the second toe. Please see separate note dictated for details of this procedure. 3. We will plan on being in contact with Ms. Simmons after her return from [place] and we will also arrange for her consultation with Dr. Rhoades when she returns. She knows to be in contact with me prior to that time if notes any worsening or worrisome symptoms which we went over in detail today. She voiced agreement and understanding with this plan. AILIN/keturah Signed Charito Dalton M.D. Physical Medicine & Rehabilitation Electronically Signed By: CHARITO DALTON MD On: 10/04/2011 01:50 PM Modified by and Electronically Signed by: CHARITO DALTON MD On: 10/04/2011 01:50 PM Source: [facility] MHSDOLBEYNONRADSYS Document Id: [id number] Charito Dalton M.D. - 09/23/2011 12:00 AM CDT [id number] DIAGNOSIS 1. Right third MTP joint pain/capsulitis HISTORY/INDICATION Please see my clinical note dated 09/23/11 for more details of the HPI. PROCEDURE PERFORMED Ultrasound guided right third MTP joint corticosteroid injection. (ultrasound was used for educational purposes only) PATIENT EDUCATION Ready to learn. No apparent learning barriers were identified. Learning preferences include listening. Explained diagnosis and treatment of plan. The patient expressed understanding of the content. Following denial of allergy and review of potential side effects and complications including but not necessarily limited to infection, allergic reaction, local tissue breakdown, systemic effects of corticosteroids, elevation of blood glucose, injury to soft tissues and/or nerves and seizure, the patient indicated understanding and agreed to proceed. Signed informed consent was obtained. DESCRIPTION OF PROCEDURE Prior to the start of the procedure, a pause was performed to confirm the patient's name, affected area and proposed procedure. The patient was placed in a supine position. An optimal ultrasound image of the right third MTP joint was obtained with a 10-6 linear transducer. A pre-procedure image was saved to the hard drive. Following this, the area was prepped with a ChloraPrep scrub, then re-examined using the same transducer, sterile ultrasound transducer cover and sterile ultrasound transducer gel. Real time ultrasound was utilized to guide a 27 gauge 1 1/4 inch needle into the dorsal aspect of the third MTP joint using a distal to proximal approach in the long axis of the transducer. After visualization of the tip in the target area and negative aspiration for blood, a mixture of 0.25 cc's of 1% Lidocaine and 0.5 cc of 6 mg. per cc of Celestone was delivered to the target area while observing injectate flow with real time ultrasonographic imaging. The injectate was delivered without complications. 0 cc's of Celestone was wasted due to single use vials for infection control purposes. The patient tolerated the procedure well. She was observed for an appropriate amount of time and discharged under her own power. She was instructed to contact me with any questions pertaining to the injection. She was instructed to use ice over the area of injection and limit activity for the rest of today. ADDITIONAL INSTRUCTIONS Ms. Simmons will be in contact with us if she has any difficulty following today's procedure. Otherwise, we will plan on being in contact with her after she returns for her trip to [place]. AILIN/adelfo Signed Charito Dalton M.D. Physical Medicine & Rehabilitation Electronically Signed By: CHARITO DALTON MD On: 10/05/2011 09:47 AM Source: [facility]SDOLBEYNONRADSYS Document Id: [id number] documented in this encounter Miscellaneous Notes Miscellaneous - Monserrat Albarran P.A.-C. - 09/30/2011 12:04 PM CDT Reminder Msg Document Contains Addenda Addendum by CHARITO DALTON MD on 14 Oct 2011 16:57:45 CDT From: CHARITO DALTON MD To: MONSERRAT ALBARRAN; Sent: 10/14/2011 16:57:45 CDT Show up: 10/14/2011 16:57:00 CDT Subject: RE: Reminder Msg Thanks for letting me know. Addendum by MONSERRAT ALBARRAN on 14 Oct 2011 16:00:40 CDT From: MONSERRAT ALBARRAN To: CHARITO DALTON MD; Sent: 10/14/2011 16:00:40 CDT Show up: 10/14/2011 15:57:00 CDT Subject: RE: Reminder Msg Steph says that her foot bothered her while she was on vacation because she was doing so much walking. It does still swell up as well. She does think that her foot feels better now that she is home. From: MONSERRAT ALBARRAN To: MONSERRAT ALBARRAN; Sent: 09/30/2011 12:04:16 CDT Show up: 10/14/2011 12:04:00 CDT Subject: Reminder Msg Please Remember to: see how her foot is feeling after inj and how her trip went. Dr. Rhoades appointment on 10/19. PATIENT: ( ) Call Patient ( ) Ask Patient to ( ) ( ) Call Relative ( ) Schedule Patient ( ) ( ) Call for Huc ( ) Follow up on Results ( ) Other: PROVIDER: ( ) Call Physician ( ) Call Pharmacist ( ) Call Lab ( ) Other: Special Instructions: Comments: Source: [facility] POWERCHART Document Id: [id number] Electronically signed by Conversion, [facility] Administrator Social Welfare [id number] at 11/07/2016 8:24 AM CDT Miscellaneous - Charito Dalton M.D. - 09/23/2011 10:00 AM CDT [place] [address] Visit Information Name: STEPH SIMMONS Current Date: 09/23/2011 10:00:13 Physicians Attending Provider: CHARITO DALTON MD Primary Care Provider: PAWEL SERNA MD Your Medications Here is a list of your medications. It is important to take your medications as directed. Use a pillbox or chart to help remind you to take your medications. Please let your doctor or nurse know if you have problems taking your medications. Medication/Strength Dose Route Frequency Indications/Special Instructions/Comments pregabalin (Lyrica 150 mg oral capsule) 150 mg Oral once a day (at bedtime) Pt of Dr Fuchs, written order from Dr Serna pregabalin (Lyrica 75 mg oral capsule) 75 mg Oral once a day pantoprazole (Protonix 40 mg oral enteric coated tablet) 40 mg Oral two times a day terbinafine (terbinafine 250 mg oral tablet) 250 mg Oral once a day pregabalin (Lyrica 150 mg oral capsule) 150 mg Oral once a day (at bedtime) for [address] Fuchs, written order from Dr Evangelina kent (senna 8.6 mg oral tablet) 8.6 mg [...] Active Neuropathy peripheral Active 02/23/2011 Hypercholesterolemia* Active Your Upcoming Appointments Date Time Location Reason Provider 10/26/2011 13:00 [facility] PM&R right foot pain Charito Dalton MD Your Goals/Additional instructions: Source: [facility] POWERCHART Document Id: [id number] Miscellaneous - Charito Dalton M.D. - 09/23/2011 10:00 AM CDT Ambulatory Depart Summary [address] [address] Visit Information Name: STEPH SIMMONS Visit Date: 09/23/2011 10:00:12 Attending Provider: CHARITO DALTON MD Primary Care [...] medications. Medication/Strength Dose Route Frequency Indications/Special Instructions/Comments pregabalin (Lyrica 150 mg oral capsule) 150 mg Oral once a day (at bedtime) Pt of Dr Fuchs, written order from Dr Serna pregabalin (Lyrica 75 mg oral capsule) 75 mg Oral once a day pantoprazole (Protonix 40 mg oral enteric coated tablet) 40 mg Oral two times a day terbinafine (terbinafine 250 mg oral tablet) 250 mg Oral once a day pregabalin (Lyrica 150 mg oral capsule) 150 mg Oral once a day (at bedtime) for [address] Fuchs, written order from Dr Serna senna (senna 8.6 mg oral tablet) 8.6 [...] your provider for clarification. Additional Information: Source: [facility] POWERCHART Document Id: [id number] Miscellaneous - Monserrat Albarran P.A.-C. - 09/23/2011 8:17 AM CDT Adult Soft Metals Hand Engraver Intake/History Adult Soft Metals Hand Engraver Intake/History Entered On: 09/23/2011 8:20 CDT Performed On: 09/23/2011 8:17 CDT by ALBARRAN, MONSERRAT ZULY Intake Systolic Blood Pressure : 110mmHg Diastolic Blood Pressure : 70mmHg NIBP Mean : 83mmHg BP Location : Right upper extremity Blood Pressure Cuff Size : Large Actual Weight : 89.4kg(Converted to: 197lb 1oz) Weight Source : Standing scale Dosing Weight Clinic : 89.40kg MONSERRAT ALBARRAN 09/23/2011 8:17 CDT Subjective Pain Symptoms : No MONSERRAT ALBARRAN 09/23/2011 8:17 CDT Dependent Habits Tobacco Use/Currently Using : No Exposure to Tobacco Smoke : Other: quit 03/1994 Smoking Status : Former smoker MONSERRAT ALBARRAN 09/23/2011 8:17 CDT Caffeine Use Grid Caffeine Use : Current Type : Tea Frequency : Daily Amount : 3 cups MONSERRAT ALBARRAN 09/23/2011 8:17 CDT Recreational Drug Use Grid Drug Use : None MONSERRAT ALBARRAN 09/23/2011 8:17 CDT Allergy Allergies (Active) amoxicillin Estimated Onset Date: Unspecified ; Reactions: diarrhea ; Created By: SUNSHINE ANGLIN; Reaction Status: Active ; Category: Drug ; Substance: amoxicillin ; Type: Allergy ; Updated By: SUNSHINE ANGLIN; Reviewed Date: 09/21/2011 9:01 CDT Levaquin Estimated Onset Date: Unspecified ; Reactions: hives ; Created By: SUNSHINE ANGLIN; Reaction Status: Active ; Category: Drug ; Substance: Levaquin ; Type: Allergy ; Updated By: SUNSHINE ANGLIN; Reviewed Date: 09/21/2011 9:01 CDT morphine Estimated Onset Date: Unspecified ; Reactions: hives ; Created By: SUNSHINE ANGLIN; Reaction Status: Active ; Category: Drug ; Substance: morphine ; Type: Allergy ; Updated By: SUNSHINE ANGLIN; Reviewed Date: 09/21/2011 9:01 CDT piroxicam Estimated Onset Date: Unspecified ; Reactions: swollen hands and feet, ankles ; Created By: SUNSHINE ANGLIN; Reaction Status: Active ; Category: Drug ; Substance: piroxicam ; Type: Allergy; Updated By: SUNSHINE ANGLIN; Reviewed Date: 09/21/2011 9:01 CDT Source: [facility] POWER[facility] Document Id: [id number] CDT!25 Miscellaneous - Charito Dalton M.D. - 09/23/2011 12:00 AM CDT [id number] September 23, 2011 Forest Rhoades M.[facility]. [facility] [address] [place] [address] RE: Steph Simmons : 1950 Dr. Rhoades: Thank you very much for seeing Ms. Simmons. She is a pleasant 61 year old female who I have seen in the past for left knee pain as well as symptoms consistent with spinal stenosis who I recently saw for right greater than left foot pain. She has had right greater than left foot pain for the past several months. She had x-rays performed of her right foot on September 21 which you will have for your review. The most bothersome area for her is her right foot and is developing what appears to be a hammer toe deformity of the right second digit. She was seen by a rolled materials worker in [place] who recommended surgery. It also appears that she had laser treatments performed as well as did have a corticosteroid injection. Ms. Simmons's pain is primarily located on the dorsum of her foot in the region of the MTP joints extending from the second through the fourth MTP joint. This pain is worse when she does any walking or standing. She obtained supportive tennis shoes as well as a metatarsal relief pad when she was in [place]. With her pain and previous recommendations in [place], I am referring her to you for your opinion with respect to her symptoms and whether she would be a surgical candidate. She is leaving for [place] in a few days and so will be seeing you when she returns. Thank you very much for seeing Ms. Simmons. Sincerely, Charito Dalton M.D. Physical Medicine & Rehabilitation JMP/cmt Electronically Signed By: CHARITO DALTON MD On: 09/28/2011 05:44 PM Source: [facility]SDOLBEYNONRADSYS Document Id: [id number] documented in this encounter Plan of Treatment Upcoming Encounters Date Type Specialty Care Team Description 03/25/2022 Office Visit Family Medicine Leslie Gonzalez M.D. [address] [place] [address] [phone] (Wo rk) documented as of this encounter Visit Diagnoses Not on filedocumented in this encounter
--- OUTSIDE RECORDS SUMMARY | 2022-03-22 15:51 | XMS_ITS | Encounter Summary ---
:1950 Author Organization [facility] Address [address] [place] [address] Care Team Providers Name Role Phone Unavailable Primary Care Provider Unavailable Encounter Details Date Type Department Care Team Description 12/11/2012 Hospital Encounter HX [facility] FAMILY[facility] Rolanda Serna M.D. Social History Tobacco Use Types Packs/Day Years Used Date Smoking Tobacco: Never Assessed Alcohol Habits Answer Date Recorded How often do you have a drink containing 4 or more times a w [place] 10/05/2021 alcohol? How many drinks containing alcohol [...] Sign Reading Time Taken Comments Blood Pressure 118/78 12/11/2012 1:31 PM CDT Pulse 64 12/11/2012 1:31 PM CDT Temperature - - Respiratory Rate 16 12/11/2012 1:31 PM CDT Oxygen Saturation - - Inhaled Oxygen Concentration - - Weight 85 kg (187 lb 6.3 oz) 12/11/2012 1:31 PM CDT Height - - Body Mass Index 29.76 11/24/2012 8:54 AM CDT documented in this [...] encounter Progress Notes Pawel Serna M.D. - 12/11/2012 1:16 PM CDT [id number] CHIEF COMPLAINT/REASON FOR VISIT Loss of vision in left eye. HISTORY OF PRESENT ILLNESS This 62-year-old female patient had sudden loss of vision November 17, 2012. She thought she got something in her eye and saw Dr. Chavez her control electrician 3 days later. He was concerned about optic neuritis and additional studies done by me were negative. She has since seen him and was told that she hada stroke in her eye with loss of circulation going to the eye and there was nothing more else that he had to offer at that time. She comes back to see me for further evaluation and any recommended treatment. Since he feels this is related to a stroke I feel that she should have an MRA of her brain, carotid ultrasound, start aspirin 325 mg daily and make an appointment to see Dr. Fuchs neurologist who she has seen in the past a couple years ago for a peripheral nerve problem. Patient has started a lipid-lowering agent and has her cholesterol in good range. When last checked her LDL cholesterol was61 on November 24, 2012. EMR record reviewed and updated. SYSTEMS REVIEW 1. Respiratory: No cough or shortness of breath. 2. Cardiovascular: No palpitation of the heart, no chest pain. 3. GI: No nausea, vomiting, diarrhea, constipation or recent change in weight. 4. : No dysuria, no hematuria. All other systems reviewed and negative, except as mentioned above. PHYSICAL EXAMINATION SKIN: Clear. EYES: Pupils equal, round, react to light and accommodation; EOMs full; fundi no papilledema, hemorrhage or exudate; lids normal. ENT: Ears: TMs clear; external auditory canals clear. Throat clear. Tongue normal. Teeth normal. LYMPH NODES: Neck: no lymphadenopathy. THYROID: Normal size, symmetric. HEART: No murmur, gallop or rub; normal size; PMI arteries normal. LUNGS: Clear to percussion and auscultation, normal to inspection, no retractions, no dyspnea. ABDOMEN: No masses, no organomegaly, nontender; normal to inspection, percussion and palpation; no distention. EXTREMITIES: Legs: no edema. Cranial nerves grossly intact. Deep tendon reflexes symmetrical +2. No obvious problems with neurological function including extremities. IMPRESSION/REPORT/PLAN Patient has lost vision in her left eye with a current diagnosis of stroke. PLAN: Additional studies and treatment as above. She will recheck with me in 2 weeks. Return sooner as needed. Pawel Serna M.D./cara Electronically Signed By: PAWEL SERNA MD On: 12/12/2012 04:15 PM Source: [facility]SDOLBEYNONRADSYS Document Id: [id number] documented in this encounter Nursing Notes Conversion, Historical Provider Ser - 12/11/2012 3:26 PM CDT MRA of brain A MRA of brain is set up at [facility] 12/12/12 8:30 AM. No prior auth required per Eugenia MARTINEZ. Dr. Serna / Eugenia Salas LPN Electronically Signed By: MAYRA SALAS On: 12/11/2012 03:27 PM Source: [facility] POWERCHART Document Id: [id number] documented in this encounter Miscellaneous Notes Miscellaneous - Pawel Serna M.D. - 12/11/2012 2:10 PM CDT Ambulatory Patient Summary [address] [address] Visit Information Name: MAYRA SIMMONS [facility] Number: [id number] Current Date: 12/11/2012 14:10:57 Physicians Attending Provider: PAWEL SERNA MD Primary Care Provider: PAWEL SERNA MD Your Medications Here is a list of your medications. It is important to take your medications as directed. Use a pillbox or chart to help remind you to take your medications. Please let your doctor or nurse know if you have problems taking your medications. Medication/Strength Dose Route Frequency Indications/Special Instructions/Comments/Notes aspirin (aspirin 325 mg oral delayed release [...] Active Tiredness/Fatigue Active 10/31/2012 Stroke Active 12/11/2012 Your Upcoming Appointments Date Time Location Reason Provider 01/02/2013 08:15 [facility] Your Goals/Additional instructions: Source: [facility] POWERCHART Document Id: [id number] Miscellaneous - Pawel Serna M.D. - 12/11/2012 2:10 PM CDT Ambulatory Depart Summary [address] [address] Visit Information Name: MAYRA SIMMONS [facility] Number: [id number] Visit Date: 12/11/2012 14:10:56 Attending Provider: PAWEL SERNA MD Primary Care [...] medications. Medication/Strength Dose Route Frequency Indications/Special Instructions/Comments/Notes aspirin (aspirin 325 mg oral delayed release [...] your provider for clarification. Additional Information: Source: [facility] POWERCHART Document Id: [id number] Miscellaneous - Conversion, Historical Provider Ser - 12/11/2012 1:31 PM CDT Adult Engineering Program Analyst Intake/History Adult Engineering Program Analyst Intake/History Entered On: 12/11/2012 13:34 CDT Performed On: 12/11/2012 13:31 CDT by MAYRA SALAS Intake Chief Complaint : Review test results Temperature Core : 36.8 DegC(Converted to: 98.2 DegF) Peripheral Pulse Rate : 64 /min Respiratory Rate : 16 /min Systolic Blood Pressure : 118 mmHg Diastolic Blood Pressure : 78 mmHg NIBP Mean : 91 mmHg BP Location : Right upper extremity Blood Pressure Cuff Size : Regular Actual Weight : 85 kg(Converted to: 187 lb 6 oz) Dosing Weight Clinic : 85 kg MAYRA SALAS - 12/11/2012 13:31 CDT General Info Languages : Kazakh MAYRA SALAS - 12/11/2012 13:31 CDT Subjective Pain Symptoms : No MAYRA SALAS - 12/11/2012 13:31 CDT Dependent Habits Tobacco Use/Currently Using : No Exposure to Tobacco Smoke : Other: quit 03/1994 Smoking Status : Former smoker MAYRA SALAS - 12/11/2012 13:31 CDT Caffeine Use Grid Caffeine Use : Current Type : Chocolate, Tea Frequency : Occasionally MAYRA SALAS - 12/11/2012 13:31 CDT Recreational Drug Use Grid Drug Use : None MAYRA SALAS - 12/11/2012 13:31 CDT [facility] Document Id: [id number] CDT!29 documented in this encounter Plan of Treatment Upcoming Encounters Date Type Specialty Care Team Description 03/25/2022 Office Visit Family Medicine Leslie Gonzalez M.D. [address] [place] [address] [phone] (Wo rk) documented as of this encounter Visit Diagnoses Not on filedocumented in this encounter
--- OUTSIDE RECORDS SUMMARY | 2022-03-22 15:51 | XMS_ITS | Encounter Summary ---
:1950 Author Organization [facility] Address [address] [place] [address] Care Team Providers Name Role Phone Unavailable Primary Care Provider Unavailable Encounter Details Date Type Department Care Team Description 09/22/2011 Hospital Encounter HX [facility] FB Ken Urrutia M.D. [address] [place] [address], [address] [place] [address] (Wo rk) Social History Tobacco Use Types Packs/Day Years Used Date Smoking Tobacco: Never Assessed Alcohol Habits Answer Date Recorded How often do you have a drink containing 4 or more times a w [place] 10/05/2021 alcohol? How many drinks containing alcohol [...] Visit Family Medicine Leslie Gonzalez M.D. [address] [place] [address] [phone] (Wo rk) documented as of this encounter Procedures Procedure Name Priority Date/Time Associated Diagnosis Comme nts DX FOOT RIGHT 3+ Routine 09/22/2011 2:29 PM Resul ts for this VIEWS CDT procedure are i n the results section. documented in this encounter Results DX Foot Right 3+ Views (09/22/2011 2:29 PM CDT) Anatomical Region Laterality Modality Lower Extremity, Foot Right Radiographic Imagi ng Specimen (Source) Anatomical Collection Method Collection Time Re ceived Time Location / / Volume Laterality 09/22/2011 2:29 PM CDT Impressions 09/22/2011 2:43 PM CDT Negative right foot Narrative 09/22/2011 2:43 PM CDT EXAM: XR Foot Right 3 or more views INDICATION: foot pain COMPARISON: None. FINDINGS: The bones are intact and show no evidence of fracture or focal destruction. The joint spaces are maintained and no soft tissue abnormality is seen. Procedure Note Kris Angel M.D. / Provider, Denise ram M.D. - 10/26/2016 EXAM: XR Foot Right 3 or more views INDICATION: foot pain COMPARISON: None. FINDINGS: The bones are intact and show no evidence of fracture or focal destruction. The joint spaces are maintained and no soft tissue abnormality is seen. IMPRESSION: Negative right foot Shirley Heller R.Kathleen.(R), R.T.(R)(M) IMG DIAGNOSTIC IM AGING PROCEDURES documented in this encounter Visit Diagnoses Not on filedocumented in this encounter
--- OUTSIDE RECORDS SUMMARY | 2022-03-22 15:51 | XMS_ITS | Encounter Summary ---
:1950 Author Organization [facility] Address [address] [place] [address] Care Team Providers Name Role Phone Unavailable Primary Care Provider Unavailable Encounter Details Date Type Department Care Team Description 01/13/2012 Hospital Encounter HX [facility] FB Dean Abel M.D. Social History Tobacco Use Types Packs/Day Years Used Date Smoking Tobacco: Never Assessed Alcohol Habits Answer Date Recorded How often do you have a drink containing 4 or more times a w [place] 10/05/2021 alcohol? How many drinks containing alcohol [...] or relatives? How often do you attend taoist or 1 to 4 times per year 07/2021 yazidism services? Do you belong to any clubs or Yes 10/05/2021 organizations such as taoist groups, unions, fraternal or athletic groups, or [...] Visit Family Medicine Leslie Gonzalez M.D. [address] [place] [address] [phone] (Wo rk) documented as of this encounter Procedures Procedure Name Priority Date/Time Associated Diagnosis Comme nts BI BREAST SCREENING Routine 01/13/2012 8:25 AM Re sults for this BILATERAL CDT procedure are i n the results section. documented in this encounter Results BI Breast Screening Bilateral (01/13/2012 8:25 AM CDT) Anatomical Region Laterality Modality Breast Bilateral Mammography Specimen (Source) Anatomical Collection Method Collection Time Re ceived Time Location / / Volume Laterality 01/13/2012 8:25 AM CDT Impressions 01/13/2012 9:37 AM CDT BI-RADS 1. Negative. Recommend routine s creening mammogram. BREAST MAMMOGRAPHY-GENERAL OBSERVATION: The false negative rate for mammography it is 15 to 20%. It cannot b e used, therefore, to replace regular physical examination. A normal o r noncontributory mammogram report should also not deter the aggress michael further workup of any suspected palpable masses. Narrative 01/13/2012 9:37 AM CDT Screening Digital Mammogram MLO and CC v iews Clinical history: No current complaint Comparison: 01/07/2011, 12/09/2009, 11/27/08, 11/08/07. Findings: The breast parenchyma is heter ogeneously dense. There is no suspicious microcalcification, ??focal m ass, or architectural distortion. ??There is no significant ch samantha. Computer Aided Detection was utilized du ring the interpretation of this exam. Procedure Note Maxime Dove M.D. / Provider, Steve landis M.D. - 10/27/2016 Screening Digital Mammogram MLO and CC v iews Clinical history: No current complaint Comparison: 01/07/2011, 12/09/2009, 11/27/08, 11/08/07. Findings: The breast parenchyma is heter ogeneously dense. There is no suspicious microcalcification, focal mas s, or architectural distortion. There is no significant hugo ge. Computer Aided Detection was utilized du ring the interpretation of this exam. IMPRESSION: BI-RADS 1. Negative. Recommend routine s creening mammogram. BREAST MAMMOGRAPHY-GENERAL OBSERVATION: The false negative rate for mammography it is 15 to 20%. It cannot b e used, therefore, to replace regular physical examination. A normal o r noncontributory mammogram report should also not deter the aggress michael further workup of any suspected palpable masses. Brando Figueroa(R)(M) IMG BI PROCEDURES documented in this encounter Visit Diagnoses Not on filedocumented in this encounter
--- OUTSIDE RECORDS SUMMARY | 2022-03-22 15:51 | XMS_ITS | Encounter Summary ---
:1950 Author Organization [facility] Address [address] [place] [address] Care Team Providers Name Role Phone Unavailable Primary Care Provider Unavailable Encounter Details Date Type Department Care Team Description 11/20/2012 Hospital Encounter HX [facility] FB LAB Dean Hutchinson M .D. Social History Tobacco Use Types [...] slept in a care home (including now)? Sex Assigned at Date [...] Visit Family Medicine Leslie Gonzalez M.D. [address] [place] [phone] (Wo rk) documented as of this encounter Visit Diagnoses Not on filedocumented in this encounter
--- OUTSIDE RECORDS SUMMARY | 2022-03-22 15:51 | XMS_ITS | Encounter Summary ---
:1950 Author Organization [facility] Address [address] [place] [address] Care Team Providers Name Role Phone Unavailable Primary Care Provider Unavailable Encounter Details Date Type Department Care Team Description 12/21/2011 Hospital Encounter HX [facility] Ken Dalton M.D. [address] [place] [address], [address] [place], [place] [phone] (Wo rk) Social History Tobacco Use Types [...] Sign Reading Time Taken Comments Blood Pressure 120/68 12/21/2011 3:29 PM CDT Pulse - - Temperature - - Respiratory Rate - - Oxygen Saturation - - Inhaled Oxygen Concentration - - Weight 90.4 kg (199 lb 4.7 oz) 12/21/2011 3:29 PM CDT Height - - Body Mass Index 33 09/21/2011 8:54 AM CDT documented in this [...] encounter Progress Notes Charito Dalton M.D. - 12/21/2011 12:00 AM CDT [id number] CHIEF COMPLAINT / REASON FOR VISIT Follow-up low back and bilateral lower extremity pain. HISTORY OF PRESENT ILLNESS Ms. Simmons returns today in followup. She had a MRI of her lumbar spine performed on December 10, 2011. I reviewed the images with her in detail. Significant findings include disc bulging at L4-L5 which in combination with facet arthropathy result in moderate to severe central canal stenosis. There is also impingement on the subarticular recess bilaterally. At L5-S1 there is moderate left L5-S1 foraminal narrowing impinging of the exiting left L5 nerve root secondary to asymmetric left facet hypertrophy. Ms. Simmons has been having more discomfort over the past couple of months and that is why we proceeded with a MRI. She describes pain that is located in her low back and then pain that radiates into the bilateral gluteal region and bilateral posterior thighs to the level of the knees. The radiating pain is present when she is standing or walking, although more recently she has been having more constant pain in the left posterior thigh although it is definitely worse with standing and walking. She estimates she can walk half a block before this pain starts to initiate. If she sits down the pain then improves. She continues to have her longstanding paresthesias in the bilateral hands and feet which are unchanged. However, she feels that the Lyrica has been causing lower extremity edema and she is inquiring about the possibility of stopping this. She denies any focal weakness in her lower extremities, changes in bowel or bladder habits, or fevers or chills. PHYSICAL EXAMINATION None performed today. IMPRESSION/REPORT/PLAN 1. Low back and bilateral lower extremity pain, most consistent with lumbar spinal stenosis 2. Small fiber peripheral neuropathy. I had a long discussion today with Ms. Simmons. Her bilateral lower extremity symptoms do seem most consistent with pseudoclaudication and would fit with her imaging findings of moderate to severe central canal stenosis at L4-L5 and moderate foraminal narrowing on the left at L5-S1 impinging on the left L5 nerve root and this is likely why she has some discomfort persisting in the left lower extremity even when she is sitting. PLAN 1. Ms. Simmons has tried a variety of different interventions for this pain including physical therapy and both Gabapentin and Lyrica. We did discuss the possibility of proceeding with an epidural corticosteroid injection which we may proceed with, but with the length of time this pain has persisted for her, I discussed with Ms. Simmons the possibility of meeting with a spine surgeon to discuss potential operative options and that is how Ms. Simmons would like to proceed. We will make that referral for her and she would prefer to go to [facility] where a friend of hers just had surgery recently. I did discuss with her that depending on when that appointment will be scheduled, we could potentially proceed with an epidural which she would like to do as well to see if that could help her symptoms in the interim. We would likely proceed with a L5-S1 interlaminar epidural corticosteroid injection with her bilateral symptoms. 2. I am going to have Ms. Simmons discontinue her Lyrica as she has been having edema in the bilateral lower extremities. We went through in detail today how to wean off of the Lyrica to see if that decreases the edema that she is having in her lower extremity. We will have to monitor to see if the paresthesias in her upper and lower extremities worsen in anyway. 3. I will plan on being in contact with Ms. Simmons after her consultation at [facility] and knows to be in contact with me prior to that time if she notes any worsening or worrisome symptoms which we went over in detail today. She voiced agreement and understanding with this plan. Charito Dalton M.D./shane Electronically Signed By: CHARITO DALTON MD On: 12/30/2011 06:23 PM Modified by and Electronically Signed by: CHARITO DALTON MD On: 12/30/2011 06:22 PM Source: [facility] MHSDOLBEYNONRADSYS Document Id: [id number] documented in this encounter Miscellaneous Notes Miscellaneous - Charito Dalton M.D. - 12/21/2011 4:27 PM CDT Ambulatory [place] [address] Visit Information Name: STEPH SIMMONS Visit Date: 12/21/2011 16:27:12 Attending Provider: CHARITO DALTON MD Primary Care [...] tablet) 250 mg Oral once a day senna (senna 8.6 mg oral [...] provider for clarification. Additional Information: Source: [facility] POWERCHART Document Id: [id number] Miscellaneous - Charito Dalton M.D. - 12/21/2011 4:27 PM CDT Ambulatory [place] [address] Visit Information Name: STEPH SIMMONS Current Date: 12/21/2011 16:27:13 Physicians Attending Provider: CHARITO DALTON MD Primary [...] tablet) 250 mg Oral once a day senna (senna 8.6 mg oral [...] No Appointments found Your Goals/Additional instructions: Source: [facility] POWERCHART Document Id: [id number] Miscellaneous - Monserrat [place] P.A.-C. - 12/21/2011 3:29 PM CDT Adult [employer] Production Heater Intake/History Adult [employer]ke Production Heater Intake/History Entered On: 12/21/2011 15:30 CDT Performed On: 12/21/2011 15:29 CDT by [place] MONSERRAT Joyner Systolic Blood Pressure : 120mmHg Diastolic Blood Pressure : 68mmHg NIBP Mean : 85mmHg BP Location : Left upper extremity Blood Pressure Cuff Size : Regular Actual Weight : 90.4kg(Converted to: 199lb 5oz) Weight Source : Standing scale Dosing Weight Clinic : 90.40kg REUBEN PARISSesar Tavarez 12/21/2011 15:29 CDT Subjective Pain Symptoms : No MONSERRAT PARIS ZULY Tavarez 12/21/2011 15:29 CDT Dependent Habits Tobacco Use/Currently Using : No Exposure to Tobacco Smoke : Other: quit 03/1994 Smoking Status : Never smoker MONSERRAT PARISAN - 12/21/2011 15:29 CDT Caffeine Use Grid Caffeine Use : Current Type : Tea Frequency : Daily Amount : 3 cups MONSERRAT [place] ZULY Tavarez 12/21/2011 15:29 CDT Recreational Drug Use Grid Drug Use : None REUBEN PARISSesar CARUSO 12/21/2011 15:29 CDT Allergy Allergies (Active) amoxicillin Estimated Onset [...] ANGLIN; Reviewed Date: 09/21/2011 9:01 CDT Source: [facility] POWERCHART Document Id: [id number] Miscellaneous - Charito Dalton M.D. - 12/21/2011 12:00 AM CDT [id number] MARK BURCH MD December 21, 2011 [facility] RE: Steph Simmons : 1950 Dr. Burch: Thank you very much for seeing Ms. Simmons. She is a pleasant 61 year old female who has a history of low back and bilateral lower extremity pain for the past three years. Her symptoms and imaging at that time correlated with lumbar spinal stenosis. She was placed on Gabapentin as well as has been involved in physical therapy. The Gabapentin was eventually changed to Lyrica and Ms. Simmons did well for a couple of years. However, over the past four months she has had the return of worsening symptoms. She describes pain that is located across her low back but the majority of her pain is located in her bilateral lower extremities. When she walks approximately 1/2 block, she starts to experience pain radiating to both gluteal regions and then into the posterior thighs to the level of the knees. If she sits the pain then lessens. She does have bilateral upper and lower extremity paresthesias primarily involving the hands and feet. She has been evaluated by neurology and it is felt that she has a small fiber peripheral neuropathy and that has been stable. Ms. Simmons recently had a MRI of her lumbar spine which you will have for your review. This was performed on December 09 and significant findings included spinal canal narrowing at L4-5 and left foraminal narrowing at L5-S1. Based on Ms. Simmons's symptoms, which do seem most consistent with pseudoclaudication and her imaging findings, I am referring her to you for your opinion with respect to her symptoms and potential operative options which Ms. Simmons would be interested in. Thank you very much for seeing Ms. Simmons. Charito Dalton M.D. Department of Physical Med & Rehab ct Electronically Signed By: CHARITO DALTON MD On: 12/28/2011 09:41 AM Modified by and Electronically Signed by: CHARITO DALTON MD On: 12/28/2011 09:41 AM Source: [facility] MHSDOLBEYNANGELASYS Document Id: [id number] documented in this encounter Plan of Treatment Upcoming Encounters Date Type Specialty Care Team Description 03/25/2022 Office Visit Family Medicine Leslie Gonzalez M.D. [address] [place] [address] [phone] (Wo rk) documented as of this encounter Visit Diagnoses Not on filedocumented in this encounter
--- OUTSIDE RECORDS SUMMARY | 2022-03-22 15:51 | XMS_ITS | Encounter Summary ---
:[address] [facility] Address [address] [place] [address] Care Team Providers Name Role Phone Unavailable Primary Care Provider Unavailable Encounter Details Date Type Department Care Team Description 01/02/2013 Hospital Encounter HX [facility] FB LAB Pawel Serna M .D. Social History Tobacco Use Types Packs/Day Years Used Date Smoking Tobacco: Never Assessed Alcohol Habits Answer Date Recorded How often do you have a drink containing 4 or more times a w [place] 10/05/2021 alcohol? How many drinks containing alcohol [...] Notes Miscellaneous - Pawel Serna M.D. - 01/02/2013 10:19 AM CDT Normal Results Letter 02 January 2013 MAYRA SIMMONS [address] [facility] [id number] Dear MAYRA SIMMONS, I am pleased to report that your results from the following diagnostic test(s) are normal. Please follow up with us as we discussed during your visit or sooner if you have any concerns. If you have questions or concerns, please do not hesitate to call our office. Continue present Lipitor dose and Recheck in 3 months. Tests ordered. Result Name Current Result Previous Result Normal Range AST (unit/L) 30 01/02/2013 27 11/24/2012 23 10/09/2012 8 - 43 Cholesterol (mg/dL) 179 01/02/2013 171 11/24/2012 (H) 300 10/09/2012 0 - 200 Trig (mg/dL) 135 01/02/2013 (H) 159 11/24/2012 124 10/09/2012 0 - 150 HDL (mg/dL) (H) 78.0 01/02/2013 (H) 78.0 11/24/2012 (H) 79.0 10/09/2012 40.0 - 60.0 LDL Calculated (mg/dL) 74 01/02/2013 61 11/24/2012 (H) 196 10/09/2012 0 - 100 Sincerely, PAWEL SERNA [address] [place] [address] Electronic Signature Electronically Signed By: PAWEL SERNA MD On: 02 January 2013 This document has images extracted. Source: [facility] POWERCHART Document Id: [id number] Electronically signed by Conversion, [facility] Technologist Development [id number] at 11/03/2016 9:59 AM CDT documented in this encounter Plan of Treatment Upcoming Encounters Date Type Specialty Care Team Description 03/25/2022 Office Visit Family Medicine Leslie Gonzalez M.D. [address] [place] [address] [phone] (Wo rk) documented as of this encounter Procedures Procedure Name Priority Date/Time Associated Comments Diagnosis LIPID PANEL, S Routine 01/02/2013 8:13 Results fo r this AM CDT procedure are i n the results section. ASPARTATE Routine 01/02/2013 8:13 Results for this AMINOTRANSFERASE (AST), AM CDT proc edure are in S/P the results section. documented in this encounter Results (ABNORMAL) Lipid Panel (01/02/2013 8:13 AM CDT) [facility] gist Method Time Signature Cholesterol, 179 0 - 200 POWERCHART Total MGDL HX HDL 78.0 (H) 40.0 - POWERCHART 60.0 MGDL Triglycerides 135 0 - 150 POWERCHART MGDL Calculated LDL 74 0 - 100 POWERCHART MGDL Specimen (Source) Anatomical Collection Method Collection Time Re ceived Time Location / / Volume Laterality Blood 01/02/2013 8:13 AM CDT Pawel Serna M.D. LAB BLOOD ADD-ON Performing Organization Address City/State/ZIP Code Phon e Number POWERCHART AST (Aspartate Aminotransferase) (01/02/2013 8:13 AM CDT) Patholo gist Method Time Signature Aspartate 30 8 - 43 POWERCHART Aminotransferase UNITL (AST), S Specimen (Source) Anatomical Collection Method Collection Time Re ceived Time Location / / Volume Laterality Blood 01/02/2013 8:13 AM CDT Pawel Serna M.D. LAB BLOOD ADD-ON Performing Organization Address City/State/ZIP Code Phon e Number POWERCHART documented in this encounter Visit Diagnoses Not on filedocumented in this encounter
--- OUTSIDE RECORDS SUMMARY | 2022-03-22 15:51 | XMS_ITS | Encounter Summary ---
:1950 Author Organization [facility] Address [address] [place] [address] Care Team Providers Name Role Phone Unavailable Primary Care Provider Unavailable Encounter Details Date Type Department Care Team Description 12/11/2012 Hospital Encounter HX [facility] FB Rolanda Chen M.D. Social History Tobacco Use Types Packs/Day Years Used Date Smoking Tobacco: Never Assessed Alcohol Habits Answer Date Recorded How often do you have a drink containing 4 or more times a w [place] 10/05/2021 alcohol? How many drinks containing alcohol [...] or relatives? How often do you attend roman catholic or 1 to 4 times per year 07/2021 mosque services? Do you belong to any clubs or Yes 10/05/2021 organizations such as roman catholic groups, unions, fraternal or athletic groups, [...] Visit Family Medicine Leslie Gonzalez M.D. [address] [place] [address] [phone] (Wo rk) documented as of this encounter Procedures Procedure Name Priority Date/Time Associated Diagnosis Comme nts US CAROTID Routine 12/11/2012 1:41 PM Results f or this BILATERAL CDT procedure are i n the results section. documented in this encounter Results US Carotid Bilateral (12/11/2012 1:41 PM CDT) Anatomical Region Laterality Modality Head and Neck, Ultrasound RST LOS, Ultrasound ARZ LOS, Dagmar branch Ultrasound Neuroradiology FLGogo LOS Specimen (Source) Anatomical Collection Method Collection Time Re ceived Time Location / / Volume Laterality 12/11/2012 1:41 PM CDT Impressions 12/11/2012 3:30 PM CDT No hemodynamically significant stenosis in either right or left internal carotid artery Narrative 12/11/2012 3:30 PM CDT EXAM: US Carotid Duplex Bilat INDICATION: stroke left eye 11-17-12 COMPARISON: None. FINDINGS: There is minimal arteriosclero tic plaque in both carotid bulb and proximal internal carotid arter ies Peak systolic velocity right internal ca rotid artery 73.4 cm/s. ICA/CCA ratio 1.25. Peak systolic velocity left internal car otid artery 60.7 cm/s. ICA/CCA ratio 0.76. Antegrade flow both vertebral arteries Procedure Note Ras Ness D.O. / ProviderFarzad M.D. - 10/22/2016 EXAM: US Carotid Duplex Bilat INDICATION: stroke left eye 11-17-12 COMPARISON: None. FINDINGS: There is minimal arteriosclero tic plaque in both carotid bulb and proximal internal carotid arter ies Peak systolic velocity right internal ca rotid artery 73.4 cm/s. ICA/CCA ratio 1.25. Peak systolic velocity left internal car otid artery 60.7 cm/s. ICA/CCA ratio 0.76. Antegrade flow both vertebral arteries IMPRESSION: No hemodynamically significa nt stenosis in either right or left internal carotid artery Sarkis Pop Jr., R.D.M.S. IMG US PROCEDURES documented in this encounter Visit Diagnoses Not on filedocumented in this encounter
--- OUTSIDE RECORDS SUMMARY | 2022-03-22 15:51 | XMS_ITS | Encounter Summary ---
:1950 Author Organization [facility] Address [address] [place] [address] Care Team Providers Name Role Phone Unavailable Primary Care Provider Unavailable Encounter Details Date Type Department Care Team Description 12/13/2012 Hospital Encounter HX [facility] NEUROLOGY Kathleen Kim M.D. [address] , [facility] [address] [place] [address] (Wo rk) Social History Tobacco Use Types Packs/Day Years Used Date Smoking Tobacco: Never Assessed Alcohol Habits Answer Date Recorded How often do you have a drink containing 4 or more times a w [place] 10/05/2021 alcohol? How many drinks containing alcohol [...] Sign Reading Time Taken Comments Blood Pressure 118/64 12/13/2012 10:53 AM CDT Pulse 72 12/13/2012 10:53 AM CDT Temperature - - Respiratory Rate - - Oxygen Saturation - - Inhaled Oxygen Concentration - - Weight 85.6 kg (188 lb 11.4 oz) 12/13/2012 10:53 AM CDT Height - - Body Mass Index 29.97 11/24/2012 8:54 AM CDT documented in this [...] documented as of this encounter Progress Notes Mi Kim M.D. - 12/13/2012 10:47 AM CDT [id number] CHIEF COMPLAINT/REASON FOR VISIT Dr. Serna asked me to see this patient back for sudden onset monocular vision loss. HISTORY OF PRESENT ILLNESS Mrs. Simmons is a very pleasant 62-year-old right-handed woman with the past history of lumbar spinal stenosis, carpal tunnel syndrome, and possible glaucoma who presents for evaluation of sudden onset of vision loss on November 17, 2012, approximately 3.5 weeks ago. She recalls no preceding difficultiessuch as headache, illness, vomiting, alcohol or substance use. She woke up with painless vision lossthat was restricted to her left eye. She noticed that she had a block in her visual field that seemed to encompass the left side more than the right. She went to Dr. Chavez who initially felt that she had some optic neuritis due to some swelling on exam. However, he apparently subsequently did some tests, including sedimentation rate which was normal. Looks like it was 17 and her CRP was most recently done and was less than 3. YAMEL was 0.3. Serum PERLITA, vitamin B12, folate, Lyme screen was negative. [place] subsequent visit, he diagnosed her with what I have learned is an acute anterior ischemic optic neuropathy. I got him on the phone and learned that her visual acuity had fallen to 20 out of 40 in that eye and she has an afferent pupillary defect. She denies any associated history of headache, jaw claudication, night sweats, fevers, unintentionalweight loss, confusional episodes, or diplopia. Really, she has been quite healthy otherwise. Since then, she has had some mild improvements with recovery of some of the lower part of her visualfield, but she is still cannot see things in the lower temporal quadrant out of that one eye. She feels a bit of tenderness or pressure in the sinus region on that side. Despite this, she finds she canstill drive and read. She finds it irritating but is gradually getting used to it. Workup consisted of a carotid ultrasound on 12/11/2012 that showed no significant stenosis in eitherartery with only minimal plaque bilaterally. MRA of the head was normal. MRI of the head showed a single spot of small vessel disease that did not enhance and no signs of multiple sclerosis. No stroke or orbital process. I reviewed the reports but not the original films with the patient as they were done at [facility]. She was not given any steroids or any other specific treatment for things. She feels like her improvement has plateaued. SYSTEMS REVIEW We reviewed the history of her small fiber neuropathy. It remains static, with occasional tingling paresthesias in her hands. However, it turned out that the majority of her foot symptoms were responsive to epidural per Dr. Dalton, and she is due for one soon. She was on Lyrica for while for her symptoms but went off of it due to a number of side effects including fatigue, depression, and lower extremity edema. She is currently not on anything specifically for it. CURRENT MEDICATIONS Aspirin 325 mg daily (she was not on an aspirin before. Dr. Serna put her on this dose). Atorvastatin 40 mg nightly. Carbidopa-levodopa 25/100 one half to 1 tablet three times daily as instructed, started today. Protonix 40 mg twice daily. Tylenol 500 mg 3 times daily. A number of supplements: Calcium 600 plus vitamin D twice daily. Fish oil 500 mg, 2 tablets twice daily. Senna as needed. ALLERGIES Levaquin causes hives. Morphine causes hives. Piroxicam causes edema. Amoxicillin causes diarrhea. Lyrica causes swelling and fatigue. VITAL SIGNS BLOOD PRESSURE: 118/64. PULSE: 72. WEIGHT: 85.6 kg. PHYSICAL EXAMINATION GENERAL: She is alert and gives an excellent history. EYES: Extraocular movements are full. She does have a subtle left APD. I did not check visual acuity. Out of her left eye, she has a lower temporal quadrantanpia that is fairly dense, although there may be a trace of vision at the far periphery. Her left optic disc looks borderline more pale than the right and there is only a minimal amount of swelling at this point. Power is full. NEURO: She has decreased sensation to pinprick to her wrist bilaterally and to her ankles bilaterally, slightly improved from her last exam. IMPRESSION/REPORT/PLAN 1. Left anterior ischemic optic neuropathy. Steph Jones unfortunately has lost vision in her left eye, with a slight decrease in her visual acuity and partial field cut with a minimal improvement over thelast 3-1/2 weeks. Anterior ischemic optic neuropathy actually is not correlated well with cerebrovascular disease. However, it is reasonable to continue her on her aspirin as it remains mysterious entity with unknown cause and prognosis. I think the workup has been very thorough excluding arteritis and carotid disease, although it is to be noted that this entity is very different from the central retinal artery occlusion, with just the more classic presentation of carotid stenosis. I did have a chance to review the literature on this. Unfortunately, there are no medications that have shown a definitive chance of improving her long-term outcome. However, there are mixed trials of the benefits of carbidopa-levodopa. As I have familiarity with this drug, it is worth a try. In accordance with a trial conducted back in 1999, we will start her on carbidopa-levodopa 25/100, 1/2 tabletthree times daily on an empty stomach, increasing in 1 week to a full tablet 3 times daily. The trial I am referencing continued this for 3 weeks only, and so I will have her call me with the results in 1 month. She will also see Dr. Chavez for rechecking exam in the meantime. If in 1 month she is comp letely improved, we can taper her off. If not improved at all, we will taper her off, if partially improved, we will have to decide what to do. Risks and side effects of carbidopa-levodopa were discussed with the patient, as well as the fact that this is not an FDA approved indication of this drug andthat it is an experimental therapy only with no guaranteed positive outcome. I have no formal plans for followup, but I will be contacting her via phone as needed. Total time 45, time in counseling 25. Mi Kim M.D./ruben cc: Pawel Serna M.D. Electronically Signed By: MI KIM M.D. On: 02/12/2013 09:28 PM Source: [facility] MHSDOLBEYNONRADSYS Document Id: [id number] documented in this encounter Miscellaneous Notes Telephone Encounter - Lobo Seth L.P.N. - 04/04/2013 9:00 AM CDT Phone Message Document Contains Addenda Addendum by LOBO SETH LPN on 04 April 2013 17:06:58 CDT Patient notified. Addendum by MI KIM M.D. on 04 April 2013 16:41:29 CDT From: MI KIM M.D. To: Neurology Nurse; Sent: 04/04/2013 16:41:29 CDT Subject: RE: Phone Message Please call her and tell her thanks for the update; okay to stay off of it andshe she call me back in the future if she thinks her vision is worsening again, From: LOBO SETH LPN ( Neurology Nurse) To: MI KIM M.D.; LOBO SETH LPN; Sent: 04/04/2013 09:00:50 CDT Subject: Phone Message Caller is: ( X ) Patient ( ) Mother ( ) Father ( ) Spouse ( ) Daughter ( ) Son ( ) Pharmacy ( ) Other: Physician: Patient MRN #: Reason for Call: Message: Steph has been on Carbidopa-levodopa for 3 months for her vision loss. Patient was to update you after stopping medication for a couple of weeks. States she did not notice a difference. Return number is [phone] or [phone]. Advice/Action: Source used: ( ) Verbalizes understanding [...] back cell phone number ( ) Source: [facility] POWERCHART Document Id: [id number] Electronically signed by [facility] [employer] Finisher [employer] Stuffer [id number] at 11/03/2016 1:05 AM CDT Miscellaneous - Monserrat Paris P.A.-C. - 02/14/2013 12:02 PM CDT Reminder Msg Document Contains Addenda Addendum by MONSERRAT PARIS on 28 February 2013 13:17:47 CDT she was seen by Dr. Dalton yesterday From: MONSERRAT PARIS ( Physical Medicine and Rehabilitation Staff) To: MONSERRAT PARIS; Sent: 02/14/2013 12:02:47 CDT Show up: 02/28/2013 12:02:00 CDT Subject: Reminder Msg Please Remember to: see how she is feeling after interlaminar inj PATIENT: ( ) Call Patient ( ) Ask Patient to ( ) ( ) Call Relative ( ) Schedule Patient ( ) ( ) Call for Histologic Aide ( ) Follow up on Results ( ) Other: PROVIDER: ( ) Call Physician ( ) Call Pharmacist ( ) Call Lab ( ) Other: Special Instructions: Comments: Source: [facility] POWERCHART Document Id: [id number] Electronically signed by Aaron [facility] Casing Finisher And Stuffer [id number] at 11/03/2016 1:05 AM CDT Telephone Encounter - Monserrat Paris P.A.-C. - 01/24/2013 1:09 PM CDT Phone Message Document Contains Addenda Addendum by MONSERRAT PARIS on 08 February 2013 10:32:48 CDT done. Addendum by CHARITO DALTON MD on 08 February 2013 09:31:28 CDT From: CHAIRTO DALTON MD To: MONSERRAT PARIS; Sent: 02/08/2013 09:31:28 CDT Subject: RE: Phone Message Please arrange for a L5-S1 interlaminar epidural corticosteroid injection. Thanks. From: MONSERRAT PARIS To: CHARITO DALTON MD; Sent: 01/24/2013 13:09:48 CDT Subject: Phone Message Caller is: ( ) Patient ( ) Mother ( ) Father ( ) Spouse ( ) Daughter ( ) Son ( ) Pharmacy ( ) Other: Physician: Sha Patient MRN #: Reason for Call: Steph would like to set up the injection in her back. Her eye is stable, she is still taking the medication to see if it will help improve it. She has jury duty for the next 2 weeks so she wouldn't be available to have the injection until after Feb.07. Message: Advice/Action: Source used: ( ) Verbalizes [...] back cell phone number ( ) Source: [facility] POWERCHART Document Id: [id number] Electronically signed by Aaron [facility] Casing Finisher And Stuffer [id number] at 11/03/2016 1:05 AM CDT Miscellaneous - Mi Kim M.D. - 12/13/2012 5:54 PM CDT Ambulatory Patient Summary [address] [address] Visit Information Name: STEPH SIMMONS [facility] Number: [id number] Current Date: 12/13/2012 17:54:42 Physicians Attending Provider: MI KIM M.D. Primary Care Provider: PAWEL SERNA MD Your [...] Lab FBHB Lab Your Goals/Additional instructions: Source: [facility] POWERCHART Document Id: [id number] Miscellaneous - Mi Kim M.D. - 12/13/2012 5:54 PM CDT Ambulatory Depart Summary [address] [address] Visit Information Name: STEPH SIMMONS [facility] Number: [id number] Visit Date: 12/13/2012 17:54:39 Attending Provider: MI KIM M.D. Primary Care Provider: PAWEL SERNA MD STEPH [...] your provider for clarification. Additional Information: Source: [facility] POWERCHART Document Id: [id number] Halicellluis - Lobo Seth L.PGiovanyNGiovany - 12/13/2012 10:53 AM CDT Adult Musical String Maker Intake/History Adult Musical String Maker Intake/History Entered On: 12/13/2012 10:56 CDT Performed On: 12/13/2012 10:53 CDT by LOBO SETH LPN Intake Chief Complaint : stroke/ follow-up vision left eye Peripheral Pulse Rate : 72 /min Systolic Blood Pressure : 118 mmHg Diastolic Blood Pressure : 64 mmHg NIBP Mean : 82 mmHg BP Location : Left upper extremity Blood Pressure Cuff Size : Regular Actual Weight : 85.6 kg(Converted to: 188 lb 11 oz) Weight Source : Standing scale Dosing Weight Clinic : 85.6 kg LOBO SETH LPN - 12/13/2012 10:53 CDT General Info Information Given By : Patient Languages : Citizen Of [place] LOBO SETH LPN - 12/13/2012 10:53 CDT Subjective Pain Symptoms : No LOBO SETH LPN - 12/13/2012 10:53 CDT Dependent Habits Tobacco Use/Currently Using : No Exposure to Tobacco Smoke : Other: quit 03/1994 Smoking Status : Former smoker LOBO SETH LPN - 12/13/2012 10:53 CDT Caffeine Use Grid Caffeine Use : Current Type : Chocolate, Tea Frequency : Occasionally LOBO SETH LPN - 12/13/2012 10:53 CDT Recreational Drug Use Grid Drug Use : None LOBO SETH LPN - 12/13/2012 10:53 CDT Source: [facility] Calester Document Id: [id number] CDT!29 documented in this encounter Plan of Treatment Upcoming Encounters Date Type Specialty Care Team Description 03/25/2022 Office Visit Family Medicine Leslie Gonzalez M.D. [address] [place] [address] [phone] (Wo rk) documented as of this encounter Visit Diagnoses Not on filedocumented in this encounter
--- OUTSIDE RECORDS SUMMARY | 2022-03-22 15:51 | XMS_ITS | Encounter Summary ---
:1950 Author Organization [facility] Address [address] [place] [address] Care Team Providers Name Role Phone Unavailable Primary Care Provider Unavailable Encounter Details Date Type Department Care Team Description 02/23/2011 Hospital Encounter HX [facility] NEUROLOGY Kathleen Kim M.D. [address] , [facility] [address] [place] [address] (Wo rk) Social History Tobacco Use Types Packs/Day Years Used Date Smoking Tobacco: Never Assessed Alcohol Habits Answer Date Recorded How often do you have a drink containing 4 or more times a w [place] 10/05/2021 alcohol? How many drinks containing alcohol [...] mouth every 8 (eight) hours as needed. documented as of this encounter Progress Notes Mi Kim M.D. - 02/23/2011 12:00 AM CDT [id number] CHIEF COMPLAINT/REASON FOR VISIT Followup on testing for numbness. HISTORY OF PRESENT ILLNESS I last saw Mrs. Simmons on 12/15/2010. At that time, I evaluated her for bilateral stocking-glove type numbness and found her to have a pinprick level to 4 inches above her ankles bilaterally and 2 cm above her wrists. EMG was then done on 01/01/2011. This was negative, meaning she had no evidence for large fiber neuropathy and no evidence for lumbar radiculopathy. Laboratory studies were negative. This means her sedimentation rate was 16, B12 was 292, TSH 1.6, hemoglobin A1c 5.4%, and she had a normal, Lyme, MARGARETTE, and YAMEL. Vitamin D was adequate at 28. I had recommended that she transition off of gabapentin, as it was not addressing her paresthesias, on to Lyrica. She tells me that on this medication she felt very fatigued and mentally slowed. She was also constipated. She is currently on Lyrica at 75 milligrams twice daily. This is addressing her paresthesias well. She rarely feels a little tingling in her fingers and feet. She feels more lucid off of the gabapentin. Overall, she is pleased with her response. Some asked if she can increase her nighttime Lyrica to 150 milligrams. She is having trouble sleeping because of back pain at that time. CURRENT MEDICATIONS Post-visit Medication Reconciliation 1. Lyrica 75 milligrams in the morning and 150 milligrams at night 2. Protonix 40 milligrams twice daily 3. Naproxen 220 milligrams, two tablets every eight hours as needed for pain 4. Multivitamin daily 5. Glucosamine/chondroitin daily 6. Calcium with vitamin D twice daily 7. Tylenol 500 milligrams as needed for pain ALLERGIES Amoxicillin causes diarrhea. Levaquin and morphine cause hives. Piroxicam causes swelling. Gabapentin caused constipation, fatigue and mental slowness. VITAL SIGNS Blood pressure 120/62, respiratory rate 16, pulse 60, temperature 37.0 IMPRESSION/REPORT/PLAN 1. Probable distal small fiber peripheral neuropathy While Steph's EMG was negative, it does not exclude the possibility of small fiber neuropathy. Her paresthesias fit this by history. Laboratory studies were unable to identify a reversible cause. She is responding well to her Lyrica, and I did at her request increase her dose to 75 milligrams in the morning and 150 milligrams at night. We talked for some time about the prognosis, which I feel is good. I am hoping this will be a minor annoyance only for many years. I told her that as her neuropathy progresses, she can expect a feeling of numbness and coldness to develop in her feet. At that point, she could consider tapering off of the Lyrica. I will renew her prescriptions for up to one year but after that I asked that they be assumed by her primary care physician. I have no formal plans for followup but would be happy to see her back as needed. Total time 25 minutes, time in counseling 20 minutes. MSB/nmd Signed Mi Kim M.D. Neurology Electronically Signed By: MI KIM M.D. On: 04/26/2011 02:03 PM Source: [facility] MHSDOLBEYNONRADSYS Document Id: [id number] DATA ARCHITECT documented in this encounter Miscellaneous Notes Miscellaneous - Conversion, Historical Provider Ser - 02/23/2011 1:18 PM CDT Adult Upper Cutter Machine Intake/History Adult Upper Cutter Machine Intake/History Entered On: 02/23/2011 13:23 CDT Performed On: 02/23/2011 13:18 CDT by EDIS HINTON Intake Chief Complaint: follow up on meds. Temperature Core: 37.0C(Converted to: 98.6DegF) Peripheral Pulse Rate: 60/min Respiratory Rate: 16/min Systolic Blood Pressure: 120mmHg Diastolic Blood Pressure: 62mmHg NIBP Mean: 81mmHg Actual Weight: 87.200kg(Converted to: 192lb 4oz) Weight Source: Standing scale Dosing Weight Clinic: 87.20kg EDIS HINTON - 02/23/2011 13:18 CDT Subjective Pain Symptoms: No EDIS HINTON - 02/23/2011 13:18 CDT Dependent Habits Tobacco Use/Currently Using: No EDIS HINTON - 02/23/2011 13:18 CDT Caffeine Use Grid Caffeine Use: Current Type: Chocolate, Soft drinks, Tea Frequency: Occasionally EDIS HINTON - 02/23/2011 13:18 CDT Allergy Allergies (Active) amoxicillin Estimated Onset Date: Unspecified ; Reactions: diarrhea ; Created By: SUNSHINE ANGLIN; Reaction Status: Active ; Category: Drug ; Substance: amoxicillin ; Type: Allergy ; Updated By: SUNSHINE ANGLIN; Reviewed Date: 01/01/2011 13:09 CDT Levaquin Estimated Onset Date: Unspecified ; Reactions: hives ; Created By: SUNSHINE ANGLIN; Reaction Status: Active ; Category: Drug ; Substance: Levaquin ; Type: Allergy ; Updated By: SUNSHINE ANGLIN; Reviewed Date: 01/01/2011 13:09 CDT morphine Estimated Onset Date: Unspecified ; Reactions: hives ; Created By: SUNSHINE ANGLIN; Reaction Status: Active ; Category: Drug ; Substance: morphine ; Type: Allergy ; Updated By: SUNSHINE ANGLIN; Reviewed Date: 01/01/2011 13:09 CDT piroxicam Estimated Onset Date: Unspecified ; Reactions: swollen hands and feet, ankles ; Created By: SUNSHINE ANGLIN; Reaction Status: Active ; Category: Drug ; Substance: piroxicam ; Type: Allergy; Updated By: SUNSHINE ANGLIN; Reviewed Date: 01/01/2011 13:09 CDT [facility] Document Id: [id number] CDT!21 Miscellaneous - Mi Kim M.D. - 12/18/2010 5:47 PM CDT General Message Document Contains Addenda Addendum by SANDI WEISS on 22 December 2010 11:43:20 CDT Letter and results sent to patient. From: MI KIM M.D. To: SANDI WEISS; Sent: 12/18/2010 17:47:05 CDT Subject: General Message PLease send letter to patient with her recent labs:Your labs are essentially normal. There is no obvious cause of your tingling. We can discuss this further when I see you back. [facility] Document Id: [id number] documented in this encounter Plan of Treatment Upcoming Encounters Date Type Specialty Care Team Description 03/25/2022 Office Visit Family Medicine Leslie Gonzalez M.D. [address] [place] [address] [phone] (Wo rk) documented as of this encounter Visit Diagnoses Not on filedocumented in this encounter
--- OUTSIDE RECORDS SUMMARY | 2022-03-22 15:51 | XMS_ITS | Encounter Summary ---
:1950 Author Organization [facility] Address [address] [place] [address] Care Team Providers Name Role Phone Unavailable Primary Care Provider Unavailable Encounter Details Date Type Department Care Team Description 05/26/2011 Hospital Encounter HX [facility] Betzy Barrera, GUNITE MIXER, C.N.P. [address] [place] [address] (Wo rk) Social History Tobacco [...] or relatives? How often do you attend lutheran or 1 to 4 times per year 07/2021 oriental orthodox services? Do you belong to any clubs or Yes 10/05/2021 organizations such as lutheran groups, unions, fraternal or athletic groups, or [...] of this encounter Progress Notes Chencho Barrera, CHELSEY, C.N.P. - 05/26/2011 12:00 AM CST [id number] CHIEF COMPLAINT/ REASON FOR VISIT Sinus congestion with sore throat, headache HISTORY OF PRESENT ILLNESS Mayra Jones states she has had sinus congestion with sore throat and headache for the past of 5 days. She denies fever. CURRENT MEDICATIONS See depart summary from today ALLERGIES See EMR PREVENTIVE: Health maintenance tab indicates due for colonoscopy however patient states she had one approximately [address] Guthrie, she declines flu shot VITAL SIGNS See EMR PHYSICAL EXAM Well developed well nourished female in no acute distress. SKIN: Warm and dry. ENT: TMs are clear. Nares congested with yellow mucus. Tenderness over maxillary and frontal sinus. Throat slightly erythematous mild anterior cervical lymphadenopathy. HEART: Regular rate and rhythm. LUNGS: Clear to auscultation. ABDOMEN: Soft, nontender, hepatosplenomegaly. IMPRESSION/REPORT/PLAN Acute sinusitis. The Zithromax Z Derek encourage fluids, Tylenol for fever discomfort and recheck if symptoms do not improve SJM/clf Signed Chencho Barrera, MSN, DELIVERY NURSE, CDE Family Nurse Practitioner Electronically Signed By: CHENCHO BARRERA CNP On: 05/27/2011 01:05 PM Source: [facility] [id number] Document Id: [id number] TENANCE WORKER documented in this encounter Miscellaneous Notes Miscellaneous - Chencho Barrera APRN, C.N.P. - 05/26/2011 5:01 PM CST Ambulatory Patient Summary [address] [id number] Visit Information Name: MAYRA SIMMONS Current Date: 05/26/2011 17:01:38 Primary Care Provider: PAWEL SERNA MD Your Medications Here is a list of your medications. It is important to take your medications as directed. Use a pillbox or chart to help remind you to take your medications. Please let your doctor or nurse know if you have problems taking your medications. Medication/Strength Dose Route Frequency Indications/Special Instructions/Comments azithromycin (Azithromycin 5 Day Dose Pack 250 mg oral tablet) 2 tablets on day 1, then 1 tablet on days 2-5 Oral as directed for 5 Days senna (senna 8.6 mg oral tablet) 8.6 mg Oral two times a day as needed for constipation pregabalin (Lyrica 150 mg oral capsule) 150 mg Oral once a day (at bedtime) pregabalin (Lyrica 75 mg oral capsule) 75 mg Oral once a day bifidobacterium infantis (Align 4 mg oral capsule) 1 cap(s) Oral once a day Misc Prescription (Misc Prescription) 0.005 %, 1 drop Eyes(Both) once a day pregabalin (pregabalin 150 mg oral capsule) 150 mg Oral two times a day pregabalin (pregabalin 75 mg oral capsule) 1-2 caps Oral two times a day Start one cap qhs for one week, then 1 cap bid glucosamine-chondroitin (glucosamine-chondroitin) once a day acetaminophen (Tylenol 500 mg oral tablet) Oral three times a day naproxen (Aleve 220 mg oral tablet) 2 tab(s) Oral every 8 hours as needed for pain pantoprazole (Protonix) 40 mg Oral two times a day calcium-vitamin D (Calcium 600+D) Oral two times a day multivitamin (multivitamin) once a day Your Allergies & Intolerances Substance Reaction Symptoms Category Comments amoxicillin diarrhea Drug morphine hives Drug piroxicam swollen hands and feet, ankles Drug Levaquin hives Drug Your Problem List Problem Status Onset Comments Sprain/strain, lumbar Active 01/27/2010 Degenerative disc disease* Active Arthritis, unspecified* Active Esophageal reflux (GERD) Active Partial colectomy Active H/O: hysterectomy Active Neuropathy peripheral Active 02/23/2011 Your Recommendations We want to make sure you get the tests, immunizations, and guidance you need to stay healthy. Here is a customized list of recommendations, based on information we have in your medical record. Your doctor may have additional recommendations for you, based on your personal medical history and risk factors. You can help us by calling us to make an appointment when you are due for your tests. Additional information regarding recommendations: Test/Treatment Last Done Next Due Additional Information Health Assessment every 1 year 05/26/2011 05/25/2012 Screening Colonoscopy or Flex Sig or Occult Blood 05/20/2000 05/18/2010 Checks for signs of cancer of the colon. Screening Mammogram every 1 year Women 40-75 01/07/2011 01/08/2012 X-rays of breast to check for breast cancer. Lipid Panel every 5 years Age 20-75 04/18/2007 04/16/2012 Checks blood for good (HDL) and bad (LDL) cholesterol. Know your numbers, they are one indicator of your risk for heart attack and stroke. Vaccine: Flu every 1 year 05/26/2011 11/22/2011 Immunization to help prevent you from getting the flu strain expected to be a problem for that year's flu season. Vaccine: Tetanus every 10 years 01/27/2010 01/25/2020 Immunization to help prevent you from getting the serious disease Tetanus (Lori). Your Upcoming Appointments Date Time Location Reason Provider No Appointments found Your Goals/Additional instructions: Source: [facility] POWERCHART Document Id: [id number] TENANCE WORKER Miscellaneous - Chencho Barrera APRN, C.N.P. - 05/26/2011 5:01 PM CST Ambulatory Depart Summary [address] [address] Visit Information Name: ROSALBAMAYRA Current Date: 05/26/2011 17:01:36 Physicians Attending Physician: CHENCHO BARRERA CNP Primary Care Provider: PAWEL SERNA MD MAYRA SIMMONS has been given the following list of medications: Your Medications It is important to take your medications as directed. Use a pill box or chart to help remind you to take your medications. Please let your doctor or nurse know if you have problems taking your medications. Medication/Strength Dose Route Frequency Indications/Special Instructions/Comments azithromycin (Azithromycin 5 Day Dose Pack 250 mg oral tablet) 2 tablets on day 1, then 1 tablet on days 2-5 Oral as directed for 5 Days senna (senna 8.6 mg oral tablet) 8.6 mg Oral two times a day as needed for constipation pregabalin (Lyrica 150 mg oral capsule) 150 mg Oral once a day (at bedtime) pregabalin (Lyrica 75 mg oral capsule) 75 mg Oral once a day bifidobacterium infantis (Align 4 mg oral capsule) 1 cap(s) Oral once a day Misc Prescription (Misc Prescription) 0.005 %, 1 drop Eyes(Both) once a day pregabalin (pregabalin 150 mg oral capsule) 150 mg Oral two times a day pregabalin (pregabalin 75 mg oral capsule) 1-2 caps Oral two times a day Start one cap qhs for one week, then 1 cap bid glucosamine-chondroitin (glucosamine-chondroitin) once a day acetaminophen (Tylenol 500 mg oral tablet) Oral three times a day naproxen (Aleve 220 mg oral tablet) 2 tab(s) Oral every 8 hours as needed for pain pantoprazole (Protonix) 40 mg Oral two times a day calcium-vitamin D (Calcium 600+D) Oral two times a day multivitamin (multivitamin) once a day Additional Information: Source: [facility] POWERCHART Document Id: [id number] TENANCE WORKER Miscellaneous - Ronda Anglin L.P.N. - 05/26/2011 4:41 PM CST Health Assessment Health Assessment Entered On: 05/26/2011 16:42 MAINTENANCE WORKER Performed On: 05/26/2011 16:41 MAINTENANCE WORKER by RONDA ANGLIN Health Assessment Complete Health Assessment Complete or Modified : Annual Health Assessment Annual Health Assessment Completed : Yes RONDA ANGLIN - 05/26/2011 16:41 MAINTENANCE WORKER Nutrition Nutrition Risk Factors by History Adult : None RONDA ANGLIN - 05/26/2011 16:41 MAINTENANCE WORKER Functional Current Daily Living Assistance : None RONDA ANGLIN - 05/26/2011 16:41 MAINTENANCE WORKER Dependent Habits Tobacco Use/Currently Using : No Exposure to Tobacco Smoke : Other: quit 03/1994 Smoking Status : Former smoker Alcohol Use : Yes RONDA ANGLIN - 05/26/2011 16:41 MAINTENANCE WORKER Caffeine Use Grid Caffeine Use : Current Type : Chocolate, Soft drinks, Tea Frequency : Occasionally RONDA ANGLIN - 05/26/2011 16:41 MAINTENANCE WORKER Recreational Drug Use Grid Drug Use : None RONDA ANGLIN - 05/26/2011 16:41 MAINTENANCE WORKER AUDIT Tool How Often Do You Have A Drink : 2 to 3 times a week How Many Drinks in a Day When Drinking : 1 or 2 Six or More Drinks On One Occassion : Never Audit Phase 1 Score : 3 RONDA ANGLIN - 05/26/2011 16:41 MAINTENANCE WORKER Psychosocial Domestic Abuse Concerns : None RONDA ANGLIN - 05/26/2011 16:41 MAINTENANCE WORKER Advance Directive Advanced Directives : Yes RONDA ANGLIN - 05/26/2011 16:41 MAINTENANCE WORKER Educ Needs Learning Style Preference Adult Grid Patient : Verbal explanation Family : Verbal explanation RONDA ANGLIN - 05/26/2011 16:41 MAINTENANCE WORKER Source: [facility] POWERCHART Document Id: [id number] MAINTENANCE WORKER!34 TENANCE WORKER Miscellaneous - Ronda Anglin L.P.N. - 05/26/2011 4:38 PM CST Adult Spd Manager Intake/History Adult Spd Manager Intake/History Entered On: 05/26/2011 16:40 MAINTENANCE WORKER Performed On: 05/26/2011 16:38 MAINTENANCE WORKER by RONDA ANGLIN Intake Chief Complaint : headache since Tuesday. Sore throat started yesterday Temperature Core : 36.9C(Converted to: 98.4DegF) Peripheral Pulse Rate : 68/min Respiratory Rate : 16/min Systolic Blood Pressure : 120mmHg Diastolic Blood Pressure : 70mmHg NIBP Mean : 87mmHg Actual Weight : 88.4kg(Converted to: 194lb 14oz) Dosing Weight Clinic : 88.40kg RONDA ANGLIN - 05/26/2011 16:38 MAINTENANCE WORKER Subjective Pain Symptoms : No RONDA ANGLIN - 05/26/2011 16:38 MAINTENANCE WORKER Dependent Habits Tobacco Use/Currently Using : No Exposure to Tobacco Smoke : Other: quit 03/1994 Smoking Status : Former smoker RONDA ANGLIN - 05/26/2011 16:38 MAINTENANCE WORKER Caffeine Use Grid Caffeine Use : Current Type : Chocolate, Soft drinks, Tea Frequency : Occasionally RONDA ANGLIN - 05/26/2011 16:38 MAINTENANCE WORKER Allergy Allergies (Active) amoxicillin Estimated Onset Date: Unspecified ; Reactions: diarrhea ; Created By: RONDA ANGLIN; Reaction Status: Active ; Category: Drug ; Substance: amoxicillin ; Type: Allergy ; Updated By: RONDA ANGLIN; Reviewed Date: 04/28/2011 10:45 MAINTENANCE WORKER Levaquin Estimated Onset Date: Unspecified ; Reactions: hives ; Created By: RONDA ANGLIN; Reaction Status: Active ; Category: Drug ; Substance: Levaquin ; Type: Allergy ; Updated By: RONDA ANGLIN; Reviewed Date: 04/28/2011 10:45 MAINTENANCE WORKER morphine Estimated Onset Date: Unspecified ; Reactions: hives ; Created By: RONDA ANGLIN; Reaction Status: Active ; Category: Drug ; Substance: morphine ; Type: Allergy ; Updated By: RONDA ANGLIN; Reviewed Date: 04/28/2011 10:45 MAINTENANCE WORKER piroxicam Estimated Onset Date: Unspecified ; Reactions: swollen hands and feet, ankles ; Created By: RONDA ANGLIN; Reaction Status: Active ; Category: Drug ; Substance: piroxicam ; Type: Allergy; Updated By: RONDA ANGLIN; Reviewed Date: 04/28/2011 10:45 MAINTENANCE WORKER Source: [facility] [employer]Tran Document Id: [id number] MAINTENANCE WORKER!22 TENANCE WORKER documented in this encounter Plan of Treatment Upcoming Encounters Date Type Specialty Care Team Description 03/25/2022 Office Visit Family Medicine Leslie Gonzalez M.D. [address] [place] [address] [phone] (Wo rk) documented as of this encounter Visit Diagnoses Not on filedocumented in this encounter
--- OUTSIDE RECORDS SUMMARY | 2022-03-22 15:51 | XMS_ITS | Encounter Summary ---
:1950 Author Organization [facility] Address [address] [place] [address] Care Team Providers Name Role Phone Unavailable Primary Care Provider Unavailable Encounter Details Date Type Department Care Team Description 11/24/2012 Hospital Encounter HX [facility] Rolanda Serna M.D. Social History Tobacco Use Types Packs/Day Years Used Date Smoking Tobacco: Never Assessed Alcohol Habits Answer Date Recorded How often do you have a drink containing 4 or more times a w [place] 10/05/2021 alcohol? How many drinks containing alcohol [...] or relatives? How often do you attend sikhism or 1 to 4 times per year 07/2021 worship services? Do you belong to any clubs or Yes 10/05/2021 organizations such as sikhism groups, unions, fraternal or athletic groups, or [...] slept in a long term (including now)? Sex Assigned at Date Recorded Female 03/07/2018 9:31 AM CDT documented as of this encounter Last Filed Vital Signs Vital Sign Reading Time Taken Comments Blood Pressure 136/80 11/24/2012 8:54 AM CDT Pulse 69 11/24/2012 8:54 AM CDT Temperature - - Respiratory Rate 18 11/24/2012 8:54 AM CDT Oxygen Saturation - - Inhaled Oxygen Concentration - - Weight 86.4 kg (190 lb 7.6 oz) 11/24/2012 8:54 AM CDT Height 169 cm (5' 6.54) 11/24/2012 8:54 AM CDT Body Mass Index 30.25 11/24/2012 8:54 AM CDT documented in this [...] documented as of this encounter H&P Notes Pawel Serna M.D. - 11/24/2012 8:47 AM CDT [id number] CHIEF COMPLAINT/REASON FOR VISIT Need medical evaluation for diagnosis of optic neuritis made by Dr. Immanuel Chavez Billing Assistant. HISTORY OF PRESENT ILLNESS This 62-year-old female patient a week ago had sudden loss of vision in her left eye. She has seen Dr. Chavez who feels she has optic neuritis. She was referred here for further evaluation checking fordiabetes, hypertension, elevated cholesterol and multiple sclerosis. She also has had problems with peripheral neuropathy thought related to her back and is scheduled to be having an injection in a week. Her sed rate was normal done by Dr. Chavez. EMR record reviewed and updated. SYSTEMS REVIEW 1. Allergic/immunologic: The patient is having no itching, no signs of allergies. No signs of immunedeficiency. 2. Constitutional symptoms: The patient has had no fevers, no weight loss or gain, no night sweats, no tiredness. 3. Psychiatric: No emotional problems, no loss of feeling, no problem thinking. 4. Eyes: Mattering and change in vision in the left eye. 5. ENT: Ringing in the ears, no cold, no runny nose, no sores in the mouth, no sore throat. 6. Cardiovascular: No palpitation of the heart, no chest pain, no orthopnea, no PND. 7. Respiratory: No cough, no shortness of breath, no difficulty breathing, no pain with inspiration. 8. Hematological/lymphatic: No swollen glands, no paleness, no easy bruising, no petechiae. 9. GI: No nausea, vomiting, diarrhea. Has constipation. 10. : No dysuria, no hematuria, no change in frequency of urination, no nocturia. 11. Musculoskeletal: No problem with moving arms or legs, no weakness, no muscle or skeletal pain. 12. Integumentary: Skin: No change in color, no lesions. Breasts: No masses noted, no change in nipples. 13. Neurological: Loss of feeling hands and feet. 14. Endocrine: No weakness, has tiredness, no symptoms of thyroid disease or diabetes; no thirst, weight loss or polyuria. 15. Concerned about whether she should get her shot in the back from Dr. Dalton next week, if she hasany restrictions. All other systems reviewed and negative, except [...] palpation; no distention. EXTREMITIES: Legs: no edema. NEURO: Cranial nerves grossly intact. Deep tendon reflexes symmetrical +2. No obvious problems with neurological function including extremities. IMPRESSION/REPORT/PLAN Optic neuritis. PLAN: Getting MRI of her head and orbits with gadolinium contrast, multiple sclerosis protocol. She had laboratory studies done here in October. She is on Lipitor to lower cholesterol so will check lipid panel AST. Will also get antinuclear antibody titer a angiotensin-converting enzyme level and a Lyme di sease blood serology. Nature of problem treatments follow up care explained. Patient encouraged not to think beyond what we already know. She states she was told she might have multiple sclerosis, a brain tumor, temporal arteritis, trans cell arteritis. I told her that we will be finding out what is going on soon and not let her mind might wonder into any of those areas until we know for sure what isgoing on. She states before they thought she had cancer and turned out to be endometriosis on the colon. Patient will be contacted with test results by mail and earlier for any abnormalities that need to be addressed or any additional studies that need to be done. Avoid any strenuous activity at this t yessy. Pawel Serna M.D./ruben Electronically Signed By: PAWEL SERNA MD On: 11/28/2012 10:10 AM Source: [facility] [id number] Document Id: [id number] documented in this encounter Miscellaneous Notes Miscellaneous - Pawel Serna M.D. - 11/27/2012 7:54 AM CDT Normal Results Letter 27 November [address] [facility] [id number] Dear STEPH SIMMONS, I am pleased to report that your results from the following diagnostic test(s) are normal. Please follow up with us as we discussed during your visit or sooner if you have any concerns. If you have questions or concerns, please do not hesitate to call our office. Result Name Current Result Normal Range AST (unit/L) 27 11/24/2012 8 - 43 Cholesterol (mg/dL) 171 11/24/2012 0 - 200 HDL (mg/dL) (H) 78.0 11/24/2012 40.0 - 60.0 Trig (mg/dL) (H) 159 11/24/2012 0 - 150 LDL Calculated (mg/dL) 61 11/24/2012 0 - 100 Vitamin B12 Lvl-Scott (ng/L) 270 11/24/2012 180 - 914 - Folate Lvl-Scott (mcg/L) >20.0 11/24/2012 >=4.0 - CRP-Scott (mg/L) <3.0 11/24/2012 <=8.0 - PERLITA-Scott (unit/L) 32 11/24/2012 8 - 53 - Lyme Serology-Scott Negative 11/24/2012 Negative - YAMEL-Scott (units) 0.3 11/24/2012 <=1.0 (Negative) - Sincerely, PAWEL SERNA [address] [place] [address] Electronic Signature Electronically Signed By: PAWEL SERNA MD On: 27 November 2012 This document has images extracted. Source: [facility] POWERCHART Document Id: [id number] Electronically signed by Conversion, [facility] Emergency Management Program Specialist [id number] at 11/03/2016 8:08 AM CDT Miscellaneous - Pawel Serna M.D. - 11/27/2012 7:51 AM CDT Normal Results Letter 27 November [address] [facility] [id number] Dear STEPH SIMMONS, I am pleased to report that your results from the following diagnostic test(s) are normal. Please follow up with us as we discussed during your visit or sooner if you have any concerns. If you have questions or concerns, please do not hesitate to call our office. Result Name Current Result Normal Range CRP-Scott (mg/L) <3.0 11/24/2012 <=8.0 - Vitamin B12 Lvl-Scott (ng/L) 270 11/24/2012 180 - 914 - Folate Lvl-Scott (mcg/L) >20.0 11/24/2012 >=4.0 - PERLITA-Scott (unit/L) 32 11/24/2012 8 - 53 - YAMEL-Scott (units) 0.3 11/24/2012 <=1.0 (Negative) - Lyme Serology-Scott Negative 11/24/2012 Negative - Sincerely, PAWEL SERNA [address] [place] [address] Electronic Signature Electronically Signed By: PAWEL SERNA MD On: 27 November 2012 This document has images extracted. Source: [employer] Document Id: [id number] Electronically signed by Conversion, [employer] Emergency Management Program Specialist [id number] at 11/03/2016 8:08 AM CDT Miscellaneous - Pawel Serna M.D. - 11/24/2012 11:26 AM CDT Results Notification From: PAWEL SERNA MD To: PAWEL SERNA MD; Sent: 11/24/2012 11:26:34 CDT ! Show up: 11/24/2012 16:26:34 [facility] Subject: Results Notification Actions: Notify patient of results Reminder Comments: lipids ok Results: Date Result Name Ind Value Ref Range 11/24/2012 09:44 AST 27 unit/L (8 - 43) 11/24/2012 09:44 Cholesterol 171 mg/dL (0 - 200) 11/24/2012 09:44 Trig (H) 159 mg/dL (0 - 150) 11/24/2012 09:44 HDL (H) 78.0 mg/dL (40.0 - 60.0) 11/24/2012 09:44 LDL Calculated 61 mg/dL (0 - 100) Source: [employer] Document Id: [id number] Electronically signed by Conversion, [facility] Emergency Management Program Specialist [id number] at 11/03/2016 8:08 AM CDT Miscellaneous - Pawel Serna M.D. - 11/24/2012 9:32 AM CDT Ambulatory Patient Summary [address] [place] [address] Visit Information Name: STEPH SIMMONS [facility] Number: [id number] Current Date: 11/24/2012 09:32:43 Physicians Attending Provider: PAWEL SERNA MD Primary Care Provider: PAWEL SERNA MD Your Medications Here is a list of your medications. It is important to take your medications as directed. Use a pillbox or chart to help remind you to take your medications. Please let your doctor or nurse know if you have problems taking your medications. Medication/Strength Dose Route Frequency Indications/Special Instructions/Comments atorvastatin (Lipitor 40 mg oral tablet) 40 [...] Impaired Fasting Glucose Active Tiredness/Fatigue Active 10/31/2012 Your Upcoming Appointments Date Time Location Reason Provider 12/05/2012 08:30 [facility] Your Goals/Additional instructions: Source: [facility] POWERCHART Document Id: [id number] Miscellaneous - Pawel Serna M.D. - 11/24/2012 9:32 AM CDT Ambulatory Depart Summary [id number] [place] [address] Visit Information Name: STEPH SIMMONS [facility] Number: [id number] Visit Date: 11/24/2012 09:32:42 Attending Provider: PAWEL SERNA MD Primary Care [...] medications. Medication/Strength Dose Route Frequency Indications/Special Instructions/Comments atorvastatin (Lipitor 40 mg oral tablet) 40 [...] your provider for clarification. Additional Information: Source: [facility] POWERCHART Document Id: [id number] Miscellaneous - Conversion, Historical Provider Ser - 11/24/2012 8:54 AM CDT Meaningful Use Influenza Exclusion Meaningful Use Influenza Exclusion Entered On: 11/24/2012 8:54 CDT Performed On: 11/24/2012 8:54 CDT by SUPA QUINTERO LPN Influenza Vaccine Exclusion Influenza Vaccine Exclusion : Patient declined SUPA QUINTERO LPN - 11/24/2012 8:54 CDT Source: [facility] [employer] Document Id: [id number] CDT!3 Miscellaneous - Conversion, Historical Provider Ser - 11/24/2012 8:54 AM CDT 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/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 Document Has Been Updated 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/History Entered On: 11/24/2012 8:59 CDT Performed On: 11/24/2012 8:54 CDT by SUPA QUINTERO LPN Intake Chief Complaint : annual requested from Temperature Core : 36.6 DegC(Converted to: 97.9 DegF) Peripheral Pulse Rate : 69 /min Respiratory Rate : 18 /min Systolic Blood Pressure : 136 mmHg Diastolic Blood Pressure : 80 mmHg NIBP Mean : 99 mmHg BP Location : Left upper extremity Blood Pressure Cuff Size : Regular Height : 169 cm(Converted to: 5 ft 7 inch(es), 66.54 inch(es)) Actual Weight : 86.4 kg(Converted to: 190 lb 8 oz) Weight Source : Standing scale Dosing Weight Clinic : 86.4 kg Clinic BSA : 2.01 Body Mass Index : 30.25 kg/m2 SUPA QUINTERO LPN - 11/24/2012 8:54 CDT General Info Information Given By : Patient Languages : [place] SUPA QUINTERO LPN - 11/24/2012 8:54 CDT Subjective Pain Symptoms : No SUPA QUINTERO LPN - 11/24/2012 8:54 CDT Dependent Habits Tobacco Use/Currently Using : No Exposure to Tobacco Smoke : Other: quit 03/1994 Smoking Status : Former smoker Alcohol Use : Yes (Comment: occasional [SUPA QUINTERO SILVESTRE - 11/24/2012 8:54 CDT] ) SUPA QUINTERO SILVESTRE - 11/24/2012 8:54 CDT Caffeine Use Grid Caffeine Use : Current Type : Chocolate, Soft drinks, Tea Frequency : Daily SUPA QUINTERO SILVESTRE - 11/24/2012 8:54 CDT Recreational Drug Use Grid Drug Use : None SUPA QUINTERO Sesar RIVERS - 11/24/2012 8:54 CDT Allergy (As Of: 11/24/2012 08:59:55 CDT) Allergies (Active) amoxicillin Estimated Onset Date: Unspecified ; Reactions: diarrhea ; Created By: SUNSHINE ANGLIN; Reaction Status: Active ; Category: Drug ; Substance: amoxicillin ; Type: Allergy ; Updated By: SUNSHINE ANGLIN; Reviewed Date: 11/24/2012 8:53 CDT Levaquin Estimated Onset Date: Unspecified ; Reactions: hives ; Created By: SUNSHINE ANGLIN; Reaction Status: Active ; Category: Drug ; Substance: Levaquin ; Type: Allergy ; Updated By: SUNSHINE ANGLIN; Reviewed Date: 11/24/2012 8:53 CDT morphine Estimated Onset Date: Unspecified ; Reactions: hives ; Created By: SUNSHINE ANGLIN; Reaction Status: Active ; Category: Drug ; Substance: morphine ; Type: Allergy ; Updated By: SUNSHINE ANGLIN; Reviewed Date: 11/24/2012 8:53 CDT piroxicam Estimated Onset Date: Unspecified ; Reactions: swollen hands and feet, ankles ; Created By: SUNSHINE ANGLIN; Reaction Status: Active ; Category: Drug ; Substance: piroxicam ; Type: Allergy; Updated By: SUNSHINE ANGLIN; Reviewed Date: 11/24/2012 8:53 CDT Source: [employer] Document Id: [id number] CDT!35 documented in this encounter Plan of Treatment Upcoming Encounters Date Type Specialty Care Team Description 03/25/2022 Office Visit Family Medicine Leslie Gonzalez M.D. [address] [place], [place] [address], [place] [phone] (Wo rk) documented as of this encounter Procedures Procedure Name Priority Date/Time Associated Comments Diagnosis LIPID PANEL, S Routine 11/24/2012 9:44 Results fo r this AM CDT procedure are i n the results section. VITAMIN B12 AND FOLATE, Routine 11/24/2012 9:44 R esults for this S AM CDT procedure are i n the results section. LYME DISEASE SEROLOGY, S Routine 11/24/2012 9:44 Results for this AM CDT procedure are i n the results section. ANGIOTENSIN CONVERTING Routine 11/24/2012 9:44 Re sults for this ENZYME, S AM CDT procedure are i n the results section. C-REACTIVE PROTEIN Routine 11/24/2012 9:44 Result s for this (CRP), S/P AM CDT procedure are i n the results section. ANTINUCLEAR ABS (YAMEL), S Routine 11/24/2012 9:44 Results for this AM CDT procedure are i n the results section. ASPARTATE Routine 11/24/2012 9:44 Results for this AMINOTRANSFERASE (AST), AM CDT proc edure are in S/P the results section. documented in this encounter Results Vitamin B12 Level and Folate (11/24/2012 9:44 AM CDT) athologist Signature Vitamin B12 270 455 - 061 POWERCHART Assay, S NGL Folate, S >20.0 >=4.0 [facility] POWERCHART Comment: Test Performed by: [address] [address] Business Intelligence Reporting Analyst: Wolf stubbs III, M.D. Specimen (Source) Anatomical Collection Method Collection Time Re ceived Time Location / / Volume Laterality Blood 11/24/2012 9:44 AM CDT Pawel Serna M.D. LAB BLOOD NON ADD-ON Performing Organization Address City/State/ZIP Code Phon e Number POWERCHART Angiotensin Converting Enzyme (11/24/2012 9:44 AM CDT) athologist Signature HX PERLITA-Sweetser 32 8 - 53 POWERCHART UNITL Comment: Test Performed by: [facility] [place] [id number] Business Intelligence Reporting Analyst: Wolf stubbs III, M.D. Specimen (Source) Anatomical Collection Method Collection Time Re ceived Time Location / / Volume Laterality Blood 11/24/2012 9:44 AM CDT Pawel Serna M.D. LAB BLOOD ADD-ON Performing Organization Address [facility]/ZIP Code Phon e Number POWERCHART YAMEL (Antinuclear Antibodies) (11/24/2012 9:44 AM CDT) athologist Signature Antinuclear Ab 0.3 <=1.0 POWERCHART Screen by IFA, S (Negative) UNITS Comment: Test Performed by: [place] [address] Business Intelligence Reporting Analyst: Wolf stubbs III, M.D. Specimen (Source) Anatomical Collection Method Collection Time Re ceived Time Location / / Volume Laterality Blood 11/24/2012 9:44 AM CDT Pawel Serna M.D. LAB BLOOD ADD-ON Performing Organization Address [facility] Phon e Number POWERCHART Lyme Disease Serology, Serum (11/24/2012 9:44 AM CDT) athologist [facility] Lyme Disease Negative Negative POWERCHART Serology, S Comment: Serologic response to B. burgdorferi inf ection is not detected, but cannot rule out early infe ction during which low or undetectable antibody level s to B. burgdorferi may be present. If clinic ally indicated, a new serum specimen should be submitted in 7-14 days. Test Performed by: [address] [address] Business Intelligence Reporting Analyst: Wolf stubbs III, M.D. Specimen (Source) Anatomical Collection Method Collection Time Re ceived Time Location / / Volume Laterality Blood 11/24/2012 9:44 AM CDT Pawel Serna M.D. LAB MICROBIOLOGY - BLOOD ORD ERABLES Performing Organization Address [facility] Phon e Number POWERCHART CRP (C-Reactive Protein) (11/24/2012 9:44 AM CDT) athologist Signature C-Reactive <3.0 <=8.0 MGL POWERCHART Protein (CRP), S Comment: Test Performed by: [facility] [place] [address] Business Intelligence Reporting Analyst: Wolf stubbs III, M.D. Specimen (Source) Anatomical Collection Method Collection Time Re ceived Time Location / / Volume Laterality Blood 11/24/2012 9:44 AM CDT Pawel Serna M.D. LAB BLOOD ADD-ON Performing Organization Address City/[facility] Phon e Number POWERCHART AST (Aspartate Aminotransferase) (11/24/2012 9:44 AM CDT) [facility] TUNJI Method Time Signature Aspartate 27 8 - 43 POWERCHART Aminotransferase UNITL (AST), S Specimen (Source) Anatomical Collection Method Collection Time Re ceived Time Location / / Volume Laterality Blood 11/24/2012 9:44 AM CDT Pawel Serna M.D. LAB BLOOD ADD-ON Performing Organization Address [facility] Phon e Number POWERCHART (ABNORMAL) Lipid Panel (11/24/2012 9:44 AM CDT) [facility] TUNJI Method Time Signature Cholesterol, 171 0 - 200 POWERCHART Total MGDL HX HDL 78.0 (H) 40.0 - POWERCHART 60.0 MGDL Triglycerides 159 (H) 0 - 150 POWERCHART MGDL Calculated LDL 61 0 - 100 POWERCHART MGDL Specimen (Source) Anatomical Collection Method Collection Time Re ceived Time Location / / Volume Laterality Blood 11/24/2012 9:44 AM CDT Pawel Serna M.D. LAB BLOOD ADD-ON Performing Organization Address City/[facility] Phon e Number POWERCHART documented in this encounter Visit Diagnoses Not on filedocumented in this encounter
--- OUTSIDE RECORDS SUMMARY | 2022-03-22 15:51 | XMS_ITS | Encounter Summary ---
:1950 Author Organization [facility] Address [address] [place] [address] Care Team Providers Name Role Phone Unavailable Primary Care Provider Unavailable Encounter Details Date Type Department Care Team Description 09/21/2011 Hospital Encounter HX [facility] FAMILYPRA Rolanda [...] or relatives? How often do you attend mosque or 1 to 4 times per year 07/2021 mormonism services? Do you belong to any clubs or Yes 10/05/2021 organizations such as mosque groups, unions, fraternal or athletic groups, or [...] Reading Time Taken Comments Blood Pressure 140/70 09/21/2011 8:54 AM CDT Pulse 60 09/21/2011 8:54 AM CDT Temperature - - Respiratory Rate 20 09/21/2011 8:54 AM CDT Oxygen Saturation - - Inhaled Oxygen Concentration - - Weight 88 kg (194 lb 0.1 oz) 09/21/2011 8:54 AM CDT Height 165.5 cm (5' 5.16) 09/21/2011 8:54 AM CDT Body Mass Index 32.13 09/21/2011 8:54 AM CDT documented in this [...] encounter Progress Notes Pawel Serna M.D. - 09/21/2011 12:00 AM CDT [id number] CHIEF COMPLAINT/ REASON FOR VISIT Annual [facility] assessment of medical problems. HISTORY OF PRESENT ILLNESS This 61-year-old female patient is in for an annual assessment of her medical problems. She has previous elevated cholesterol so will do lipid panel. She is having trouble with tiredness and esophagitis degenerative joint diseases, peripheral neuropathy and will do with T4 and CBC. She also having pain in her foot and her head turbine operator is considering surgery, suggested that she see Dr. Dalton for foot and she is not sure that she wants to have surgery also has some puffiness on top of her foot which is not present on the left foot right foot is the involved foot. She did get an injection in her foot from her head turbine operator that did help for a couple months. She is going [place] on the 27 of September and was interested in having some temporizing measure like another injection that might get her through the trip with walking. EMR record reviewed and updated. CURRENT MEDICATIONS Lyrica 150 milligrams at night and 75 milligrams in the morning Protonix 40 milligrams daily. ALLERGIES Amoxicillin, diarrhea Levaquin hives Morphine hives. Piroxicam, swollen, hands, feet and ankles. SYSTEMS REVIEW 1. Allergic/immunologic: The patient is having no itching, no signs of allergies. No signs of immune deficiency. 2. Constitutional symptoms: The patient has had no fevers, no weight loss or gain, no night sweats, no tiredness. 3. Psychiatric: No emotional problems, no loss of feeling, no problem thinking. 4. Eyes: No redness, no mattering, no change in vision. 5. ENT: No hearing loss, no cold, no runny nose, no sores in the mouth, no sore throat. 6. Cardiovascular: No palpitation of the heart, no chest pain, no orthopnea, no PND. 7. Respiratory: No cough, no shortness of breath, no difficulty breathing, no pain with inspiration. 8. Hematological/lymphatic: No swollen glands, no paleness, no easy bruising, no petechiae. 9. GI: No nausea, vomiting, diarrhea or constipation. 10. : No dysuria, no hematuria, no change in frequency of urination, no nocturia. 11. Musculoskeletal: No problem with moving arms or legs, no weakness, no muscle or skeletal pain. 12. Integumentary: Skin: No change in color, no lesions. Breasts: No masses noted, no change in nipples. 13. Neurological: No loss of feeling, no loss of function. 14. Endocrine: No weakness, no tiredness, no symptoms of thyroid disease or diabetes; no thirst, weight loss or polyuria. All other systems reviewed and negative, except as mentioned above. PAST MEDICAL/SURGICAL HISTORY 1. Arthritis 2. Degenerative disc disease 3. Esophageal reflux 4. Hysterectomy. 5. Hypercholesterolemia 6. Peripheral neuropathy 7. Partial colectomy 8. Lumbar strain. 9. Hysterectomy with bilateral salpingo-oophorectomy was 94. FAMILY HISTORY Father lung cancer. SOCIAL HISTORY Patient does not smoke no alcohol. VITAL SIGNS HEIGHT: 165 WEIGHT 88 BODY MASS INDEX 32 TEMPERATURE: 36.5 RESPIRATORY RATE: 20 PULSE: 60 BLOOD PRESSURE : 140/70 PHYSICAL EXAM GENERAL: Appearance, development, nutrition, and body habitus appear normal; no deformities. Normal grooming. SKIN: Inspection of the skin and subcutaneous tissue clear, no rashes, lesions or ulcers. Palpation of the skin and subcutaneous tissue revealed no induration, subcutaneous nodules or tightening of the skin. EYES: Pupils equal, round, react to light and accommodation; EOMs full; fundi no papilledema, hemorrhage or exudate; optic discs normal; lids and conjunctiva normal, no redness, no papules. ENT: Tympanic membranes clear; external auditory canals and ears normal; hearing grossly normal; nasal mucosa, septum and turbinates appear normal; lips, teeth and gums normal; oropharynx, oral mucosa, salivary glands, hard and soft palate, tongue, and posterior pharynx appear normal. LYMPH NODES: No lymphadenopathy, thyroid normal size without masses or tenderness; no masses, symmetrical. Lymphatic: No nodules palpated in the neck, axilla, groin or any other area. HEART: Palpation of the heart normal location and size, no thrills. Auscultation reveals no murmur, gallop or rub. Carotid arteries: Normal pulse amplitude, no bruits. Abdominal aorta normal size, no bruits. Femoral arteries pulse normal, no bruits. Pedal pulses normal amplitude. LUNGS: Respiratory effort normal, no difficulty breathing, retractions or abnormal movements. Percussion: No dullness, flatness or hyperresonance. Palpation of the chest negative, auscultation of the lungs reveals normal breath sounds, no rales, rhonchi or wheezing. ABDOMEN: Abdomen has no masses, no tenderness; liver and spleen are not palpable; no evidence for hernia. EXTREMITIES: No edema, no significant varicosities. Musculoskeletal: Normal gait and station; fingers normal, nails normal, no clubbing or cyanosis. Joints and bones appeared normal to range of motion, palpation and inspection, joints appeared stable. Normal muscle strength and tone. MENTAL: Psychiatric: Patient appears oriented to time, place and person with good recent and remote memory. Mood and affect appear normal without evidence for depression, anxiety or agitation. NEURO: Cranial nerves grossly intact. Deep tendon reflexes symmetrical +2. Normal sensation. IMPRESSION/REPORT/PLAN For her hypercholesterolemia lipid panel, for her degenerative disc disease and esophageal reflux, CBC for peripheral neuropathy and tiredness add TSH. Patient be contacted with test results. Patient will wear seat belt when riding or driving a car, eat low sodium high calcium high potassium less than 20 gram saturated fat diet with calories to maintain ideal body weight, walk equivalent to half hour a day for exercise, see dentist once or twice a year, use ear protection for loud noises, eye examination as needed, continue to have annual medical examinations. Patient did not wish have her sugars. She does not feel like she has any problems with that. She will recheck in one year. Return sooner prn. SFO/kmk Signed Pawel Serna M.D. Family Medicine Electronically Signed By: PAWEL SERNA MD On: 09/23/2011 04:31 PM Source: [facility] [email or web address] Document Id: [id number] documented in this encounter Miscellaneous Notes Miscellaneous - Pawel Serna M.D. - 09/22/2011 8:53 AM CDT Results Notification From: PAWEL SERNA MD To: PAWEL SERNA MD Sent: 09/22/2011 08:53:45 CDT ! Show up: 09/22/2011 13:53:45 [facility] Subject: Results Notification Actions: Notify patient of results Source: [facility] POWERCHART Document Id: [id number] Electronically signed by Conversion, [facility] [employer] [id number] at 11/07/2016 8:24 AM CDT Pawel Ravi M.D. - 09/21/2011 11:44 AM CDT Results Notification From: PAWEL SERNA MD To: PAWEL SERNA MD Sent: 09/21/2011 11:44:52 CDT ! Show up: 09/21/2011 16:44:52 [facility] Subject: Results Notification Actions: Notify patient of results Source: [facility] [employer] Document Id: [id number] Electronically signed by Conversion, [facility] [employer] [id number] at 11/07/2016 8:24 AM CDT Pawel Ravi M.D. - 09/21/2011 9:47 AM CDT Ambulatory Patient Summary [address] [address] Visit Information Name: MAYRA SIMMONS Current Date: 09/21/2011 09:47:15 Physicians Attending Provider: PAWEL SERNA MD Primary Care Provider: PAWEL SERNA MD Your Medications Here is a list of your medications. It is important to take your medications as directed. Use a pillbox or chart to help remind you to take your medications. Please let your doctor or nurse know if you have problems taking your medications. Medication/Strength Dose Route Frequency Indications/Special Instructions/Comments terbinafine (terbinafine 250 mg oral tablet) 250 mg Oral once a day pregabalin (Lyrica 150 mg oral capsule) 150 mg Oral once a day (at bedtime) Pt of Dr Fuchs, written order from Dr Arthur pregabalin (Lyrica 75 mg oral capsule) 75 [...] No Appointments found Your Goals/Additional instructions: Source: [facility] POWERCHART Document Id: [id number] Miscellaneous - Pawel Serna M.D. - 09/21/2011 9:47 AM CDT Ambulatory Depart Summary [address] [address] Visit Information Name: MAYRA SIMMONS Visit Date: 09/21/2011 09:47:14 Attending Provider: PAWEL SENRA MD Primary Care Provider: PAWEL SERNA MD MAYRA SIMMONS has been given the following list of medications: Your Medications It is important to take your medications as directed. Use a pill box or chart to help remind you to take your medications. Please let your doctor or nurse know if you have problems taking your medications. Medication/Strength Dose Route Frequency Indications/Special Instructions/Comments terbinafine (terbinafine 250 mg oral tablet) 250 [...] your provider for clarification. Additional Information: Source: [facility] POWERCHART Document Id: [id number] Miscellaneous - Conversion, Historical Provider Ser - 09/21/2011 8:54 AM CDT Adult Community Development Director Intake/History Adult Community Development Director Intake/History Entered On: 09/21/2011 9:00 CDT Performed On: 09/21/2011 8:54 CDT by EDIS HINTON Intake Chief Complaint : physical Temperature Core : 36.5C(Converted to: 97.7DegF) Peripheral Pulse Rate : 60/min Respiratory Rate : 20/min Heart Rhythm : Regular Systolic Blood Pressure : 140mmHg Diastolic Blood Pressure : 70mmHg NIBP Mean : 93mmHg BP Location : Left upper extremity Blood Pressure Cuff Size : Regular Height : 165.5cm(Converted to: 5ft 5inch(es), 65.16inch(es)) Actual Weight : 88kg(Converted to: 194lb 0oz) Weight Source : Standing scale Dosing Weight Clinic : 88.00kg Clinic BSA : 2.01 Body Mass Index : 32.13kg/m2 EDIS HINTON 09/21/2011 8:54 CDT Subjective Pain Symptoms : No [facility] 09/21/2011 8:54 CDT Dependent Habits Tobacco Use/Currently Using : No Exposure to Tobacco Smoke : Other: quit 03/1994 Smoking Status : Former sm[facility]/21/2011 8:54 CDT Caffeine Use Grid Caffeine Use : Current Type : Chocolate, Soft drinks, Tea Frequency : Occasionally [facility] 09/21/2011 8:54 CDT Recreational Drug Use Grid Drug Use : None [facility] 09/21/2011 8:54 CDT Allergy Allergies (Active) amoxicillin Estimated Onset Date: Unspecified ; Reactions: diarrhea ; Created By: SUNSHINE ANGLIN; Reaction Status: Active ; Category: Drug ; Substance: amoxicillin ; Type: Allergy ; Updated By: SUNSHINE ANGLIN; Reviewed Date: 04/28/2011 10:45 LEAD APPLIER Levaquin Estimated Onset Date: Unspecified ; Reactions: hives ; Created By: SUNSHINE ANGLIN; Reaction Status: Active ; Category: Drug ; Substance: Levaquin ; Type: Allergy ; Updated By: SUNSHINE ANGLIN; Reviewed Date: 04/28/2011 10:45 LEAD APPLIER morphine Estimated Onset Date: Unspecified ; Reactions: hives ; Created By: SUNSHINE ANGLIN; Reaction Status: Active ; Category: Drug ; Substance: morphine ; Type: Allergy ; Updated By: SUNSHINE ANGLIN; Reviewed Date: 04/28/2011 10:45 LEAD APPLIER piroxicam Estimated Onset Date: Unspecified ; Reactions: swollen hands and feet, ankles ; Created By: USNSHINE ANGLIN; Reaction Status: Active ; Category: Drug ; Substance: piroxicam ; Type: Allergy; Updated By: SUNSHINE ANGLIN; Reviewed Date: 04/28/2011 10:45 LEAD APPLIER Source: [employer] Document Id: [id number] CDT!32 Miscellaneous - Conversion, Historical Provider Ser - 09/21/2011 8:54 AM CDT Health Assessment Health Assessment Entered On: 09/21/2011 9:01 CDT Performed On: 09/21/2011 8:54 CDT by EDIS HINTON Health Assessment Complete Health Assessment Complete or Modified : Annual Health Assessment Annual Health Assessment Completed : Yes EDIS HINTON 09/21/2011 8:54 CDT Nutrition Nutrition Risk Factors by History Adult : None EDIS HINTON 09/21/2011 8:54 CDT Functional Current Daily Living Assistance : None EDIS HINTON 09/21/2011 8:54 CDT Dependent Habits Tobacco Use/Currently Using : No Exposure to Tobacco Smoke : Other: quit 03/1994 Smoking Status : Former smoker Alcohol Use : Yes EDIS HINTON 09/21/2011 8:54 CDT Caffeine Use Grid Caffeine Use : Current Type : Tea Frequency : Daily Amount : 3 cups EDIS HINTON 09/21/2011 8:54 CDT Recreational Drug Use Grid Drug Use : None EDIS HINTON 09/21/2011 8:54 CDT AUDIT Tool How Often Do You Have A Drink : 4 or more times a week How Many Drinks in a Day When Drinking : 3 or 4 Six or More Drinks On One Occassion : Never Audit Phase 1 Score : 5 EDIS HINTON 09/21/2011 8:54 CDT Psychosocial Domestic Abuse Concerns : None EDIS HINTON 09/21/2011 8:54 CDT Advance Directive Advanced Directives : Yes EDIS HINTON 09/21/2011 8:54 CDT Educ Needs Learning Style Preference Adult Grid Patient : None Family : None EDIS HINTON 09/21/2011 8:54 CDT Source: [employer] Document Id: [id number] CDT!35 documented in this encounter Plan of Treatment Upcoming Encounters Date Type Specialty Care Team Description 03/25/2022 Office Visit Family Medicine Leslie Gonzalez M.D. [facility] [place] ERIKA Wells [phone] (Wo rk) documented as of this encounter Procedures Procedure Name Priority Date/Time Associated Diagnosis Comme nts LIPID PANEL, S Routine 09/21/2011 9:57 AM Results for this CDT procedure are i n the results section. AUTOMATED Routine 09/21/2011 9:57 AM Results f or this DIFFERENTIAL, B CDT procedure ar e in the results section. CBC WITH Routine 09/21/2011 9:57 AM Results f or this DIFFERENTIAL, B CDT procedure ar e in the results section. THYROID-STIMULATING Routine 09/21/2011 9:57 AM Re sults for this HORMONE-SENSITIVE CDT procedure are in (S-TSH) the results section. documented in this encounter Results Automated Differential (09/21/2011 9:57 AM CDT) P athologist Signature Neutro % 52.4 34.0 - 71.1 POWERCHART Lymphocytes % 34.9 19.3 - 51.7 POWERCHART HX [place] % 9.5 4.7 - 12.5 POWERCHART HX Eos % 2.4 0.7 - 5.8 POWERCHART HX Baso % 0.8 0.1 - 1.2 POWERCHART Specimen Anatomical Collection Method Collection Time Receive d Time (Source) Location / / Volume Laterality Blood 09/21/2011 9:57 AM 2 9:57 CDT AM CDT Pawel Serna M.D. LAB BLOOD ADD-ON Performing Organization Address City/State/ZIP Code Phon e Number POWERCHART CBC with Differential (09/21/2011 9:57 AM CDT) P athologist Signature Leukocytes 3.8 3.5 - 10.5 POWERCHART UNITL Erythrocytes 4.41 3.90 - POWERCHART 5.03 UNITL Hemoglobin 13.5 12.0 - POWERCHART 15.5 GDL Hematocrit 40.4 34.9 - POWERCHART 44.5 MCV 91.6 81.6 - POWERCHART 98.3 FL Platelet Count 251 150 - 450 POWERCHART UNITL HX RDW 12.4 11.9 - POWERCHART 15.5 HXDifferential? Auto POWERCHART Specimen (Source) Anatomical Collection Method Collection Time Re ceived Time Location / / Volume Laterality Blood 09/21/2011 9:57 AM CDT Pawel Serna M.D. LAB BLOOD ADD-ON Performing Organization Address City/State/ZIP Code Phon e Number POWERCHART (ABNORMAL) Lipid Panel (09/21/2011 9:57 AM CDT) Patholo gist Method Time Signature Cholesterol, 281 (H) 0 - 200 POWERCHART Total MGDL HX HDL 82.0 (H) 40.0 - POWERCHART 60.0 MGDL Triglycerides 205 (H) 0 - 150 POWERCHART MGDL Calculated LDL 158 (H) 0 - 100 POWERCHART MGDL Specimen (Source) Anatomical Collection Method Collection Time Re ceived Time Location / / Volume Laterality Blood 09/21/2011 9:57 AM CDT Pawel Serna M.D. LAB BLOOD ADD-ON Performing Organization Address City/State/ZIP Code Phon e Number POWERCHART Thyroid-Stimulating Hormone-Sensitive (s-TSH) (09/21/2011 9:57 AM CDT) P athologist Signature TSH, Sensitive 0.9 0.3 - 5.0 POWERCHART MIUL Comment: Test Performed by: [facility] Dpt of Lab Med and Pathology [address] [place], [place] [id number] Metal Plater: Wolf stubbs III, M.D. Specimen (Source) Anatomical Collection Method Collection Time Re ceived Time Location / / Volume Laterality Blood 09/21/2011 9:57 AM CDT Pawel Serna M.D. LAB BLOOD ADD-ON Performing Organization Address City/State/ZIP Code Phon e Number POWERCHART documented in this encounter Visit Diagnoses Not on filedocumented in this encounter
--- OUTSIDE RECORDS SUMMARY | 2022-03-22 15:51 | XMS_ITS | Encounter Summary ---
:1950 Author Organization [facility] Address [address] [place] [address] Care Team Providers Name Role Phone Unavailable Primary Care Provider Unavailable Encounter Details Date Type Department Care Team Description 01/26/2012 Hospital Encounter HX NO MAPPING Marian Dalton M.D. [address] [place] [address] , [address] [place] [address] (Wo rk) Social History Tobacco Use Types Packs/Day Years Used Date Smoking Tobacco: Never Assessed Alcohol Habits Answer Date Recorded How often do you have a drink containing 4 or more times a w [place] 10/05/2021 alcohol? How many drinks containing alcohol [...] 1 to 4 times per year 07/2021 orthodox services? Do you belong to any [...] Visit Family Medicine Leslie Gonzalez M.D. [address] [place] [phone] (Wo rk) documented as of this encounter Visit Diagnoses Not on filedocumented in this encounter
--- OUTSIDE RECORDS SUMMARY | 2022-03-22 15:51 | XMS_ITS | Encounter Summary ---
:1950 Author Organization [facility] Address [address] [place] [address] Care Team Providers Name Role Phone Unavailable Primary Care Provider Unavailable Encounter Details Date Type Department Care Team Description 10/09/2012 Hospital Encounter HX [facility] Rolanda Serna M.D. Social History Tobacco Use Types Packs/Day Years Used Date Smoking Tobacco: Never Assessed Alcohol Habits Answer Date Recorded How often do you have a drink containing 4 or more times a w mentasta 10/05/2021 alcohol? How many drinks containing alcohol [...] Taken Comments Blood Pressure - - Pulse 64 10/09/2012 10:55 AM CDT Temperature - - Respiratory Rate 16 10/09/2012 10:55 AM CDT Oxygen Saturation - - Inhaled Oxygen Concentration - - Weight 86.3 kg (190 lb 2.4 oz) 10/09/2012 10:55 AM CDT Height 167.5 cm (5' 5.95) 10/09/2012 10:55 AM CDT Body Mass Index 30.74 10/09/2012 10:55 AM CDT documented in this [...] encounter Progress Notes Pawel Serna M.D. - 10/09/2012 10:42 AM CDT [id number] CHIEF COMPLAINT/REASON FOR VISIT Left lower anterior rib pain for 3 months. HISTORY OF PRESENT ILLNESS This 62-year-old female patient has been having pain for last 3 months in her left lower rib area and about three times or four times in the last 3 months she gets a stabbing pain in the left shoulder blade area like someone is sticking her with an ice pick. Pain sometimes goes down her arm and she istired most of the time. She has not noticed any weight loss, night sweats, fevers or chills. Does have some constipation but pain is not related to that. EMR record reviewed and updated. SYSTEMS REVIEW 1. Respiratory: No cough or shortness of breath. 2. Cardiovascular: No palpitation of the heart, pr has chest wall pain. 3. GI: No nausea, vomiting, diarrhea or recent change in weight. Patient has constipation. No rectalbleeding or melena. 4. : No dysuria, no hematuria. All [...] normal to inspection, no retractions, no dyspnea. Tenderness left lateral lower anterior ribs and below that but no pain with deep inspiration of the abdominal wall. ABDOMEN: No masses, no organomegaly, nontender; normal to inspection, percussion and palpation; no distention. EXTREMITIES: Legs: no edema. IMPRESSION/REPORT/PLAN Left lower chest wall pain. Recommend PA and left rib chest x-rays, CBC, sed rate, complete metabolic panel. Patient also has additional problems of impaired fasting glucose will do an A1c and elevatedcholesterol lipid panel. Patient will be sent a copy of her test results and she will recheck in 1 week return sooner as needed. May need additional imaging. Pawel Serna M.D./ruben Electronically Signed By: PAWEL SERNA MD On: 10/09/2012 02:14 PM Source: [facility] [email or web address] Document Id: [id number] documented in this encounter Miscellaneous Notes Telephone Encounter - Monserrat Paris P.A.-C. - 10/13/2012 3:33 PM CDT Phone Message Document Contains Addenda Addendum by CHARITO DAMICO MD on 16 Oct 2012 09:53:07 CDT From: CHARITO DAMICO MD To: [facility] Rehabilitation Staff; Sent: 10/16/2012 09:53:07 CDT Subject: RE: Phone Message I would like to see her in the clinic and discuss options since it has been that length of time. Thanks. From: MONSERRAT PARIS ( Physical Medicine and Rehabilitation Staff) To: CHARITO DAMICO MD; Sent: 10/13/2012 15:33:51 CDT Subject: Phone Message Caller is: ( ) Patient ( ) Mother ( ) Father ( ) Spouse ( ) Daughter ( ) Son ( ) Pharmacy ( ) Other: Physician: Sha Patient MRN #: Reason for Call: Steph is wondering if she could have another injection in her back. You did a L5-S1 interlaminar injection on 01/26/12 which did help her symptoms quite a bit. She did still have some pain in her left leg at that time and you discussed doing a L L5 transforaminal injection, but decided to see how it felt for awhile. Do you want to see her in clinic first or just schedule for inj? Message: Advice/Action: Source used: ( ) Verbalizes [...] back cell phone number ( ) Source: [facility] POWERCHART Document Id: [id number] Miscellaneous - Pawel Serna M.D. - 10/09/2012 5:07 PM CDT Schedule Follow-Up Visit 09 Oct 2012 STEPH SIMMONS [address] [facility] [phone] Dear STEPH SIMMONS, Thank you for choosing [facility] for your health care needs. You recently had laboratory work performed to assess your overall health. This letter contains the results of your testing and standard ranges to help explain the results. I would recommend follow-up as we previously discussed. If you have questions prior to our appointment, please contact our office. Result Name Current Result Normal Range WBC (x10(9)/L) 4.5 10/09/2012 3.4 - 10.5 RBC (x10(12)/L) 4.22 10/09/2012 3.90 - 5.03 Hgb (g/dL) 13.6 10/09/2012 12.0 - 15.5 Hct (%) 39.8 10/09/2012 34.9 - 44.5 MCV (fL) 94.3 10/09/2012 82.0 - 98.0 Platelet (x10(9)/L) 263 10/09/2012 150 - 450 RDW (%) (L) 11.8 10/09/2012 11.9 - 15.5 Differential? Auto 10/09/2012 Neutro % (%) 57.6 10/09/2012 34.0 - 71.1 Lymph % (%) 32.4 10/09/2012 19.3 - 51.7 Day % (%) 7.6 10/09/2012 4.7 - 12.5 Eos % (%) 2.0 10/09/2012 0.7 - 5.8 Baso % (%) 0.4 10/09/2012 0.1 - 1.2 Neutro Absolute (10(9)/L) 2.57 10/09/2012 1.70 - 7.00 Lymph Absolute (x10(9)/L) 1.45 10/09/2012 0.90 - 2.90 Day Absolute (x10(9)/L) 0.34 10/09/2012 0.30 - 0.90 Eos Absolute (x10(9)/L) 0.09 10/09/2012 0.05 - 0.50 Baso Absolute (x10(9)/L) 0.02 10/09/2012 0.00 - 0.30 Hgb A1c (% A1C) 5.6 10/09/2012 4.0 - 6.0 Sed Rate (mm/hr) 17 10/09/2012 0 - 29 BUN (mg/dL) (H) 23 10/09/2012 6 - 20 lCreatinine (mg/dL) 0.7 10/09/2012 0.7 - 1.2 Potassium Lvl (mmol/L) 4.7 10/09/2012 3.5 - 4.8 Sodium Lvl (mmol/L) 144 10/09/2012 135 - 145 Chloride (mmol/L) 103 10/09/2012 100 - 108 CO2 (mmol/L) (H) 31 10/09/2012 22 - 29 Calcium Lvl (mg/dL) (H) 10.8 10/09/2012 8.5 - 10.5 Albumin Lvl (gm/dL) 4.4 10/09/2012 3.5 - 5.0 Alkaline Phosphatase (unit/L) 91 10/09/2012 50 - 130 AST (unit/L) 23 10/09/2012 8 - 43 ALT (unit/L) 25 10/09/2012 9 - 52 Bili Total (mg/dL) 0.8 10/09/2012 0.1 - 1.0 Protein Total (mg/dL) 7.2 10/09/2012 6.3 - 8.2 EGFR (MDRD) (mL/min) >60 10/09/2012 EGFR (MDRD) (mL/min) >60 10/09/2012 Glucose Fasting (mg/dL) (H) 102 10/09/2012 70 - 99 Cholesterol (mg/dL) (H) 300 10/09/2012 0 - 200 HDL (mg/dL) (H) 79.0 10/09/2012 40.0 - 60.0 Trig (mg/dL) 124 10/09/2012 0 - 150 LDL Calculated (mg/dL) (H) 196 10/09/2012 0 - 100 Sincerely, PAWEL SERNA [address] [place] [address] Electronic Signature Electronically Signed By: PAWEL SERNA MD On: 09 Oct 2012 This document has images extracted. Source: [facility] POWERCHART Document Id: [id number] Miscellaneous - Pawel Serna M.D. - 10/09/2012 3:20 PM CDT Results Notification From: PAWEL SERNA MD To: PAWEL SERNA MD; Sent: 10/09/2012 15:20:14 CDT ! Show up: 10/09/2012 20:20:14 [facility] Subject: Results Notification Actions: Notify patient of results Reminder Comments: bad cholesterol elevated. Diet and Meds later. Results: Date Result Name Ind Value Ref Range 10/09/2012 11:58 Sodium Lvl 144 mmol/L (135 - 145) 10/09/2012 11:58 Potassium Lvl 4.7 mmol/L (3.5 - 4.8) 10/09/2012 11:58 Chloride 103 mmol/L (100 - 108) 10/09/2012 11:58 CO2 (H) 31 mmol/L (22 - 29) 10/09/2012 11:58 Alkaline Phosphatase 91 unit/L (50 - 130) 10/09/2012 11:58 Glucose Fasting (H) 102 mg/dL (70 - 99) 10/09/2012 11:58 Creatinine 0.7 mg/dL (0.7 - 1.2) 10/09/2012 11:58 EGFR (MDRD) >60 mL/min 10/09/2012 11:58 EGFR (MDRD) >60 mL/min 10/09/2012 11:58 BUN (H) 23 mg/dL (6 - 20) 10/09/2012 11:58 Calcium Lvl (H) 10.8 mg/dL (8.5 - 10.5) 10/09/2012 11:58 Protein Total 7.2 mg/dL (6.3 - 8.2) 10/09/2012 11:58 Albumin Lvl 4.4 gm/dL (3.5 - 5.0) 10/09/2012 11:58 AST 23 unit/L (8 - 43) 10/09/2012 11:58 ALT 25 unit/L (9 - 52) 10/09/2012 11:58 Bili Total 0.8 mg/dL (0.1 - 1.0) 10/09/2012 11:58 Cholesterol (H) 300 mg/dL (0 - 200) 10/09/2012 11:58 Trig 124 mg/dL (0 - 150) 10/09/2012 11:58 HDL (H) 79.0 mg/dL (40.0 - 60.0) 10/09/2012 11:58 LDL Calculated (H) 196 mg/dL (0 - 100) Source: [facility] GrabInbox Document Id: [id number] Electronically signed by Conversion, [facility] Architectural Drafting Instructor [id number] at 11/03/2016 5:15 AM CDT Miscellaneous - Pawel Serna M.D. - 10/09/2012 12:51 PM CDT Results Notification From: PAWEL SERNA MD To: PAWEL SERNA MD; Sent: 10/09/2012 12:51:56 CDT ! Show up: 10/09/2012 17:51:56 [facility] Subject: Results Notification Actions: Notify patient of results Reminder Comments: blood cells and sugar average A1c and Inflammation test Sed rate normal Results: Date Result Name Ind Value Ref Range 10/09/2012 11:58 Hgb A1c 5.6 % A1C (4.0 - 6.0) 10/09/2012 11:58 Hgb 13.6 g/dL (12.0 - 15.5) 10/09/2012 11:58 Hct 39.8 % (34.9 - 44.5) 10/09/2012 11:58 WBC 4.5 x10(9)/L (3.4 - 10.5) 10/09/2012 11:58 RBC 4.22 x10(12)/L (3.90 - 5.03) 10/09/2012 11:58 MCV 94.3 fL (82.0 - 98.0) 10/09/2012 11:58 RDW (L) 11.8 % (11.9 - 15.5) 10/09/2012 11:58 Platelet 263 x10(9)/L (150 - 450) 10/09/2012 11:58 Neutro % 57.6 % (34.0 - 71.1) 10/09/2012 11:58 Lymph % 32.4 % (19.3 - 51.7) 10/09/2012 11:58 Day % 7.6 % (4.7 - 12.5) 10/09/2012 11:58 Eos % 2.0 % (0.7 - 5.8) 10/09/2012 11:58 Baso % 0.4 % (0.1 - 1.2) 10/09/2012 11:58 Neutro Absolute 2.57 10(9)/L (1.70 - 7.00) 10/09/2012 11:58 Lymph Absolute 1.45 x10(9)/L (0.90 - 2.90) 10/09/2012 11:58 Day Absolute 0.34 x10(9)/L (0.30 - 0.90) 10/09/2012 11:58 Eos Absolute 0.09 x10(9)/L (0.05 - 0.50) 10/09/2012 11:58 Baso Absolute 0.02 x10(9)/L (0.00 - 0.30) 10/09/2012 11:58 Differential? Auto 10/09/2012 11:58 Sed Rate 17 mm/hr (0 - 29) Source: [facility] POWERCHART Document Id: [id number] Electronically signed by Aaron, [facility] Architectural Drafting Instructor [id number] at 11/03/2016 5:15 AM CDT Miscellaneous - Pawel Serna M.D. - 10/09/2012 11:39 AM CDT Ambulatory Patient Summary [address] [place] [address] Visit Information Name: STEPH SIMMONS [facility] Number: [id number] Current Date: 10/09/2012 11:39:55 Physicians Attending Provider: PAWEL SERNA MD Primary [...] No Appointments found Your Goals/Additional instructions: Source: [facility] POWERCHART Document Id: [id number] Miscellaneous - Pawel Serna M.D. - 10/09/2012 11:39 AM CDT Ambulatory Depart Summary [id number] [place] [address] Visit Information Name: STEPH SIMMONS [facility] Number: [id number] Visit Date: 10/09/2012 11:39:54 Attending Provider: PAWEL SERNA MD Primary Care [...] your provider for clarification. Additional Information: Source: [facility] POWERCHART Document Id: [id number] Miscellaneous - Conversion, Historical Provider Ser - 10/09/2012 11:00 AM CDT Health Assessment Health Assessment Entered On: 10/09/2012 11:01 CDT Performed On: 10/09/2012 11:00 CDT by STEPH DANG Health Assessment Complete Health Assessment Complete or Modified : Annual Health Assessment Annual Health Assessment Completed : Yes STEPH DANG - 10/09/2012 11:00 CDT Nutrition Nutrition Risk Factors by History Adult : None Home Diet : Regular Feeding Ability : Complete independence STEPH DANG 10/09/2012 11:00 CDT Functional Living Situation : Home independently Current Daily Living Assistance : None Mobility Assistance Prior to Admission : Independent STEPH DANG 10/09/2012 11:00 CDT Dependent Habits Tobacco Use/Currently Using : No Exposure to Tobacco Smoke : Other: quit 03/1994 Smoking Status : Former smoker Alcohol Use : Yes STEPH DANG 10/09/2012 11:00 CDT Caffeine Use Grid Caffeine Use : Current Type : Chocolate, Soft drinks, Tea Frequency : Daily STEPH DANG 10/09/2012 11:00 CDT Recreational Drug Use Grid Drug Use : None STEPH DANG 10/09/2012 11:00 CDT AUDIT Tool How Often Do You Have A Drink : 4 or more times a week How Many Drinks in a Day When Drinking : 1 or 2 Six or More Drinks On One Occassion : Less than monthly Audit Phase 1 Score : 5 STEPH DANG 10/09/2012 11:00 CDT Psychosocial Domestic Abuse Concerns : None STEPH DANG 10/09/2012 11:00 CDT Advance Directive Advanced Directives : Yes STEPH DANG 10/09/2012 11:00 CDT Educ Needs Learning Style Preference Adult Grid Patient : Printed materials, Verbal explanation Family : None STEPH DANG 10/09/2012 11:00 CDT Source: [facility] POWERCHART Document Id: [id number] CDT!38 Miscellaneous - Conversion, Historical Provider Ser - 10/09/2012 10:55 AM CDT Adult Heel Shaper Intake/History Adult Heel Shaper Intake/History Entered On: 10/09/2012 11:00 CDT Performed On: 10/09/2012 10:55 CDT by STEPH DANG Intake Chief Complaint : Pain left rib area Temperature Core : 36.4 DegC(Converted to: 97.5 DegF) (LOW) Peripheral Pulse Rate : 64 /min Respiratory Rate : 16 /min Systolic Blood Pressure : -128 mmHg (<LLOW) Diastolic Blood Pressure : 70 mmHg BP Location : Right upper extremity Blood Pressure Cuff Size : Large Height : 167.5 cm(Converted to: 5 ft 6 inch(es), 65.94 inch(es)) Actual Weight : 86.25 kg(Converted to: 190 lb 2 oz) Dosing Weight Clinic : 86.25 kg Clinic BSA : 2 Body Mass Index : 30.74 kg/m2 STEPH DANG 10/09/2012 10:55 CDT General Info Languages : Belizean STEPH DANG 10/09/2012 10:55 CDT Subjective Pain Symptoms : Yes STEPH DANG 10/09/2012 10:55 CDT Pain Pain Assessment Grid Pain 1 Location : Other: left chest to back pain STEPH DANG 10/09/2012 10:55 CDT Dependent Habits Tobacco Use/Currently Using : No Exposure to Tobacco Smoke : Other: quit 03/1994 Smoking Status : Former smoker STEPH DANG 10/09/2012 10:55 CDT Caffeine Use Grid Caffeine Use : Current Type : Chocolate, Soft drinks, Tea Frequency : Daily STEPH DANG 10/09/2012 10:55 CDT Recreational Drug Use Grid Drug Use : None STEPH DANG 10/09/2012 10:55 CDT Source: [employer] Document Id: [id number] CDT!35 documented in this encounter Plan of Treatment Upcoming Encounters Date Type Specialty Care Team Description 03/25/2022 Office Visit Family Medicine Leslie Gonzalez M.D. [address] [place] [address] [phone] (Wo rk) documented as of this encounter Procedures Procedure Name Priority Date/Time Associated Comments Diagnosis LIPID PANEL, S Routine 10/09/2012 11:58 Results f or this AM CDT procedure are i n the results section. AUTOMATED DIFFERENTIAL, Routine 10/09/2012 11:58 Results for this B AM CDT procedure are i n the results section. SEDIMENTATION RATE, B Routine 10/09/2012 11:58 Re sults for this AM CDT procedure are i n the results section. CBC WITH DIFFERENTIAL, B Routine 10/09/2012 11:58 Results for this AM CDT procedure are i n the results section. HEMOGLOBIN A1C, B Routine 10/09/2012 11:58 Result s for this AM CDT procedure are i n the results section. COMPREHENSIVE METABOLIC Routine 10/09/2012 11:58 Results for this PANEL, S/P AM CDT procedure are i n the results section. DX RIBS LEFT 2 VIEWS Routine 10/09/2012 11:36 Res ults for this WITH CHEST AM CDT procedure are i n POSTEROANTERIOR 1 VIEW the r esults section. documented in this encounter Results Automated Differential (10/09/2012 11:58 AM CDT) P athologist Signature Neutro % 57.6 34.0 - POWERCHART 71.1 Lymphocytes % 32.4 19.3 - POWERCHART 51.7 HX Day % 7.6 4.7 - 12.5 POWERCHART HX Eos % 2.0 0.7 - 5.8 POWERCHART HX Baso % 0.4 0.1 - 1.2 POWERCHART Absolute 2.57 1.70 - POWERCHART Neutrophils 7.00 109L Lymphocytes 1.45 0.90 - POWERCHART 2.90 X109L Monocytes 0.34 0.30 - POWERCHART 0.90 X109L Eosinophils 0.09 0.05 - POWERCHART 0.50 X109L Absolute 0.02 0.00 - POWERCHART Basophil 0.30 X109L Specimen Anatomical Collection Method Collection Time Receive d Time (Source) Location / / Volume Laterality Blood 10/09/2012 11:58 10/09/2012 AM CDT 11:58 AM CDT Pawel Serna M.D. LAB BLOOD ADD-ON Performing Organization Address City/State/ZIP Code Phon e Number POWERCHART Sedimentation Rate (10/09/2012 11:58 AM CDT) Analysis Performed At Patho logist Time Signature Sedimentation 17 0 - 29 POWERCHART Rate, B MMHR Specimen (Source) Anatomical Collection Method Collection Time Re ceived Time Location / / Volume Laterality Blood 10/09/2012 11:58 AM CDT Pawel Serna M.D. LAB BLOOD ADD-ON Performing Organization Address City/[facility]/ZIP Code Phon e Number POWERCHART (ABNORMAL) CBC with Differential (10/09/2012 11:58 AM CDT) [facility] Method Time Signature Leukocytes 4.5 3.4 - 10.5 POWERCHART X109L Erythrocytes 4.22 3.90 - POWERCHART 5.03 [id number] Hemoglobin 13.6 12.0 - POWERCHART 15.5 GDL Hematocrit 39.8 34.9 - POWERCHART 44.5 MCV 94.3 82.0 - POWERCHART 98.0 FL Platelet Count 263 150 - 450 POWERCHART X109L HX RDW 11.8 (L) 11.9 - POWERCHART 15.5 HXDifferential? Auto POWERCHART Specimen (Source) Anatomical Collection Method Collection Time Re ceived Time Location / / Volume Laterality Blood 10/09/2012 11:58 AM CDT Pawel Serna M.D. LAB BLOOD ADD-ON Performing Organization Address [facility]/ZIP Code Phon e Number POWERCHART Hemoglobin A1c (10/09/2012 11:58 AM CDT) athologist Signature Hemoglobin A1c, 5.6 4.0 - 6.0 POWERCHART B A1C Specimen (Source) Anatomical Collection Method Collection Time Re ceived Time Location / / Volume Laterality Blood 10/09/2012 11:58 AM CDT Pawel Serna M.D. LAB BLOOD ADD-ON Performing Organization Address [facility]/ZIP Code Phon e Number POWERCHART (ABNORMAL) Lipid Panel (10/09/2012 11:58 AM CDT) [facility] Method Time Signature Cholesterol, 300 (H) 0 - 200 POWERCHART Total MGDL HX HDL 79.0 (H) 40.0 - POWERCHART 60.0 MGDL Triglycerides 124 0 - 150 POWERCHART MGDL Calculated LDL 196 (H) 0 - 100 POWERCHART MGDL Specimen (Source) Anatomical Collection Method Collection Time Re ceived Time Location / / Volume Laterality Blood 10/09/2012 11:58 AM CDT Pawel Serna M.D. LAB BLOOD ADD-ON Performing Organization Address City/State/ZIP Code Phon e Number POWERCHART (ABNORMAL) CMP (Comprehensive Metabolic Panel) (10/09/2012 11:58 AM CDT) [facility] gist Method Time Signature BUN (Blood Urea 23 (H) 6 - 20 POWERCHART Nitrogen), S MGDL Creatinine 0.7 0.7 - 1.2 POWERCHART MGDL Potassium, S 4.7 3.5 - 4.8 POWERCHART MMOLL Sodium, S 144 135 - 145 POWERCHART MMOLL Chloride, S 103 100 - 108 POWERCHART MMOLL CO2 Total 31 (H) 22 - 29 POWERCHART MMOLL Calcium, Total, S 10.8 (H) 8.5 - POWERCHART 10.5 MGDL Albumin, S 4.4 3.5 - 5.0 POWERCHART GMDL Alkaline 91 50 - 130 POWERCHART Phosphatase, S UNITL Aspartate 23 8 - 43 POWERCHART Aminotransferase UNITL (AST), S Alanine 25 9 - 52 POWERCHART Amniotransferase, LD UNITL Bilirubin, Total, S 0.8 0.1 - 1.0 POWERCHART MGDL Total Protein, S 7.2 6.3 - 8.2 POWERCHART MGDL HXeGFR (MDRD) >60 MLMIN POWERCHART eGFR Black/ >60 MLMIN POWERCHART Liberian Glucose, Fasting, S 102 (H) 70 - 99 POWERCHART MGDL Specimen (Source) Anatomical Collection Method Collection Time Re ceived Time Location / / Volume Laterality Blood 10/09/2012 11:58 AM CDT Pawel Serna M.D. LAB BLOOD ADD-ON Performing Organization Address City/State/ZIP Code Phon e Number POWERCHART DX Ribs Left 2 Views with Chest Posteroanterior 1 View (10/09/2012 11:36 AM CDT) Anatomical Region Laterality Modality Ribs, Chest Left Radiographic Imaging Specimen (Source) Anatomical Collection Method Collection Time Re ceived Time Location / / Volume Laterality 10/09/2012 11:36 AM CDT Impressions 10/09/2012 12:06 PM CDT Normal rib study. Narrative 10/09/2012 12:06 PM CDT Multiple views of the left ribs as well as a PA view of the chest demonstrate no evidence of a fracture, l ytic or blastic lesion. A metallic BB overlies the peripheral aspe ct of the ninth rib. There is no pneumothorax. The heart and pulmonary vasculature are within normal limits. The visualized lungs are clear. Procedure Note Immanuel Solorzano M.D. / Provider, Jed montgomery M.D. - 10/22/2016 Multiple views of the left ribs as well as a PA view of the chest demonstrate no evidence of a fracture, l ytic or blastic lesion. A metallic BB overlies the peripheral aspe ct of the ninth rib. There is no pneumothorax. The heart and pulmonary vasculature are within normal limits. The visualized lungs are clear. IMPRESSION: Normal rib study. Historical Provider IMG DIAGNOSTIC IMAGING PROCE DURES documented in this encounter Visit Diagnoses Not on filedocumented in this encounter
--- OUTSIDE RECORDS SUMMARY | 2022-03-22 15:51 | XMS_ITS | Encounter Summary ---
:1950 Author Organization [facility] Address [address] [place] [address] Care Team Providers Name Role Phone Unavailable Primary Care Provider Unavailable Encounter Details Date Type Department Care Team Description 04/28/2011 Hospital Encounter HX [facility] Ken Dalton M.D. [address] [place] [address], [address] [place], [place] [phone] (Wo rk) Social History Tobacco Use Types Packs/Day Years Used Date Smoking Tobacco: Never Assessed Alcohol Habits Answer Date Recorded How often do you have a drink containing 4 or more times a w gakona 10/05/2021 alcohol? How many drinks containing alcohol [...] encounter Progress Notes Charito Dalton M.D. - 04/28/2011 12:00 AM CST [id number] CHIEF COMPLAINT / REASON FOR VISIT Follow-up left knee pain HISTORY OF PRESENT ILLNESS Ms. Simmons returns today in followup. She reports that she has had the recurrence of left knee pain over the past few weeks. She describes this pain as being primarily located in the posterior aspect left knee. She has noted swelling in the left knee which tends to be worse at the end of the day if she has been active including walking for a long distances or going up and down stairs. She can also experience pain along the posteromedial and posterior lateral joint lines as well. She denies any catching or locking in the knee. She denies any buckling or give-way of the knee. She denies any warmth or erythema about the knee. PHYSICAL EXAM GENERAL: Pleasant 60-year-old female in no acute distress. GAIT: Nonantalgic. Strength: All major muscle groups of the bilateral lower extremities have normal and symmetric muscle strength, bulk and tone. MUSCULOSKELETAL: Knee: There is a 1+ effusion in the left knee without any warmth or erythema. There is fullness in the popliteal fossa consistent with a popliteal cyst. Range of motion is from 0-125 degrees on the left compared to 0-130 degrees in the right. There is tenderness along both the posteromedial and lateral joint lines, most pronounced over the posteromedial joint line. Negative bounce home and negative Cyrus's. Negative patellar grind. There is no tenderness over medial or lateral patellar facet region. IMPRESSION/REPORT/PLAN 1. Left knee pain 2. Left posterior medial meniscal tear 3. Left knee popliteal cyst Ms. Simmons's posterior knee pain is most consistent with a popliteal cyst. This has likely recurred because of her underlying posteromedial meniscal tear as well as the degenerative changes in her left knee. She has not experienced any mechanical symptoms but does have pain located in the region of the posteromedial joint line and has tenderness in this region as well. PLAN 1 I discussed with Ms. Simmons the possibility of meeting with an orthopedic surgeon for consideration of surgery for her left posteromedial meniscal tear as I feel this is why her popliteal cyst is continuing to recur. She also does have underlying arthritis which may be contributing to her symptoms as well. After discussing this with Ms. Simmons, she would like to proceed with this referral and I will arrange for this to occur. She is having several family members in for the holiday and so is inquiring also about possibly proceeding with a popliteal cyst aspiration and knee injection to see if that could help her enjoy the holiday with her family until her appointment with the orthopedic surgeon. I think this would be reasonable to perform as this did help her for several months previously. Please see separate note dictated for details of this procedure. 2 I will plan on being in contact with Ms. Simmons after her consultation with orthopedic surgery or sooner if she notes any worsening or worrisome symptoms which we went over in detail today. She voiced agreement and understanding with this plan. AILIN/adelfo Signed Charito Dalton M.D. Physical Medicine & Rehabilitation Electronically Signed By: CHARITO DALTON MD On: 05/07/2011 12:32 PM Modified by and Electronically Signed by: CHARITO DALTON MD On: 05/07/2011 12:32 PM Source: [facility] MHSDOLBEYNONRADSYS Document Id: [id number] STER OR DAMAGE CONTROL SPECIALIST Charito Dalton M.D. - 04/28/2011 12:00 AM CST [id number] DIAGNOSIS 1. Left knee pain 2. Left medial meniscal tear 3. Left knee DJD 4. Left popliteal cyst HISTORY/INDICATION Please see my clinical note dated 04/28/11 for more details of the HPI. PROCEDURE PERFORMED 1. Ultrasound guided left popliteal cyst aspiration 2. Ultrasound guided left knee aspiration and intraarticular corticosteroid injection (ultrasound was used for educational purposes only) [...] informed consent was obtained. DESCRIPTION OF PROCEDURE 1. Ultrasound guided left popliteal cyst aspiration Prior to the start of the procedure, a pause was performed to confirm the patient's name, affected area and proposed procedure. The patient was placed in a prone position. An optimal ultrasound image of the left popliteal fossa was obtained with a 12-5 linear transducer. An anechoic area was identified between the semimembranosus and medial gastrocnemius This measured 2.21 cm in the medial to lateral dimension and 2.4 cm in the anterior to posterior dimension and 3.75 cm in the inferior to superior dimension. There is noted to be a significant amount of internal debris within this anechoic area. There was no internal flow with Doppler imaging. This anechoic area was easily compressible. A pre-procedure image was saved to the hard drive. Following this, the area was prepped with a ChloraPrep scrub, then re-examined using the same transducer, sterile ultrasound transducer cover and sterile ultrasound transducer gel. Next, 3 cc's of 1% Lidocaine was used for local anesthesia using a 27 gauge 1 1/4 inch needle. Following delivery of local anesthesia, real time ultrasound was utilized to guide a 19 gauge 2 inch needle into the area of maximal fluid collection. The cyst was completely aspirated and a total of 9 cc of typical appearing synovial fluid was aspirated. DESCRIPTION OF PROCEDURE 2. Ultrasound guided left knee aspiration and intraarticular corticosteroid injection (ultrasound was used for educational purposes only) Prior to the start of the procedure, a pause was performed to confirm the patient's name, affected area and proposed procedure. The patient was placed in a supine position. An optimal ultrasound image of the left knee was obtained with a 12-5 curvilinear transducer. A pre-procedure image was saved to the hard drive. Following this, the area was prepped with a ChloraPrep scrub, then re-examined using the same transducer, sterile ultrasound transducer cover and sterile ultrasound transducer gel. Next, 3 cc's of 1% Lidocaine was used for local anesthesia using a 27 gauge 1 1/4 inch needle. Following delivery of local anesthesia, real time ultrasound was utilized to guide a 19 gauge 2 inch needle into the lateral suprapatellar recess using a lateral to medial approach in the long axis of the transducer at the area of maximal effusion. 17 cc of typical appearing synovial fluid was aspirated. There was no further synovial fluid seen remaining in the knee. At this point, the syringe containing the synovial fluid was disconnected from the needle while the needle tip remained within the lateral suprapatellar recess. At this point a syringe containing 3 cc's of 1% Lidocaine and 1 cc of 40 mg per cc of Depo-Medrol was then attached to the needle. After reconfirming needle tip placement within the lateral suprapatellar recess, this mixture was delivered to the target area while observing injectate flow with real time ultrasonographic imaging. The injectate was delivered without complications. 0 cc's of Depo-Medrol was wasted due to single use vials [...] has any difficulty following today's procedure. Otherwise, I will plan on being in contact with her in two weeks over the phone to assess her progress. She voiced agreement and understanding with this plan. JMP/adelfo Signed Charito Dalton M.D. Physical Medicine & Rehabilitation Electronically Signed By: CHARITO DALTON MD On: 05/07/2011 09:39 AM Modified by and Electronically Signed by: CHARITO DALTON MD On: 05/07/2011 09:39 AM Source: [facility] MHSDOLBEYNONRADSYS Document Id: [id number] STER OR DAMAGE CONTROL SPECIALIST documented in this encounter Miscellaneous Notes Miscellaneous - Monserrat Paris P.A.-C. - 04/28/2011 10:42 AM CST Adult Mergers And Acquisitions Consultant Intake/History Adult Mergers And Acquisitions Consultant Intake/History Entered On: 04/28/2011 10:43 DISASTER OR DAMAGE CONTROL SPECIALIST Performed On: 04/28/2011 10:42 DISASTER OR DAMAGE CONTROL SPECIALIST by MONSERRAT PARIS Intake Systolic Blood Pressure : 132mmHg Diastolic Blood Pressure : 70mmHg NIBP Mean : 91mmHg BP Location : Left upper extremity Actual Weight : 88.2kg(Converted to: 194lb 7oz) Weight Source : Standing scale Dosing Weight Clinic : 88.20kg MONSERRAT PARIS - 04/28/2011 10:42 DISASTER OR DAMAGE CONTROL SPECIALIST Subjective Pain Symptoms : No MONSERRAT PARIS - 04/28/2011 10:42 DISASTER OR DAMAGE CONTROL SPECIALIST Dependent Habits Tobacco Use/Currently Using : No Exposure to Tobacco Smoke : Other: quit 03/1994 Smoking Status : Former smoker MONSERRAT PARIS - 04/28/2011 10:42 DISASTER OR DAMAGE CONTROL SPECIALIST Caffeine Use Grid Caffeine Use : Current Type : Chocolate, Soft drinks, Tea Frequency : Occasionally MONSERRAT PARIS - 04/28/2011 10:42 DISASTER OR DAMAGE CONTROL SPECIALIST Allergy Allergies (Active) amoxicillin Estimated Onset Date: Unspecified ; Reactions: diarrhea ; Created By: SUNSHINE ANGLIN; Reaction Status: Active ; Category: Drug ; Substance: amoxicillin ; Type: Allergy ; Updated By: SUNSHINE ANGLIN; Reviewed Date: 02/23/2011 13:23 CDT Levaquin Estimated Onset Date: Unspecified ; Reactions: hives ; Created By: SUNSHINE ANGLIN; Reaction Status: Active ; Category: Drug ; Substance: Levaquin ; Type: Allergy ; Updated By: SUNSHINE ANGLIN; Reviewed Date: 02/23/2011 13:23 CDT morphine Estimated Onset Date: Unspecified ; Reactions: hives ; Created By: SUNSHINE ANGLIN; Reaction Status: Active ; Category: Drug ; Substance: morphine ; Type: Allergy ; Updated By: SUNSHINE ANGLIN; Reviewed Date: 02/23/2011 13:23 CDT piroxicam Estimated Onset Date: Unspecified ; Reactions: swollen hands and feet, ankles ; Created By: SUNSHINE ANGLIN; Reaction Status: Active ; Category: Drug ; Substance: piroxicam ; Type: Allergy; Updated By: SUNSHINE ANGLIN; Reviewed Date: 02/23/2011 13:23 CDT Source: [facility] [employer] Document Id: [id number] DISASTER OR DAMAGE CONTROL SPECIALIST!20 STER OR DAMAGE CONTROL SPECIALIST Miscellaneous - Charito Dalton M.D. - 04/28/2011 12:00 AM CST [id number] April 28, 2011 Brannon Grant M.D. [address] [place] [address] RE: Steph Simmons : 1950 Dr. Grant: Thank you very much for seeing Ms. Simmons. She is a pleasant 60 year old female who has a past medical history significant for lumbar spinal stenosis. In October, she noted pain and swelling both anteriorly and in the posterior aspect of her left knee when she was doing any standing or walking. The pain was also especially bothersome if she was doing any squatting or walking up and down stairs. She had x-rays of her left knee on November 23 which were negative for any acute osseus abnormality. She then had an MRI performed of her left knee on November 25 which showed tearing of the posterior horn of the medial meniscus with medial extrusion of the medial meniscal body. There were also mild to moderate degenerative changes in the medial compartment. At that time, Ms. Simmons was not having any mechanical symptoms and so we proceeded with a left popliteal cyst aspiration as well as a left knee intraarticular corticosteroid injection. She did very well for four months but over the past month has had the return of her symptoms, primarily with pain being located in the posterior aspect of the knee as she has had the recurrence of her popliteal cyst but also pain both along the posterior medial and lateral joint lines. She is also tender along the posteromedial joint line. I discussed with her that likely the cyst is recurring because of her medial meniscal tear and potentially her degenerative changes in the knee and this would correlate with her tenderness in the posteromedial joint line. Because of this, I am referring her to you for consideration of operative management for her medial meniscal tear. Ms. Simmons was having several people in for the holidays and so we did proceed with a left popliteal cyst aspiration and left knee corticosteroid injection to try and provide her pain relief so that she could be more active with her company for the holidays. Thank you very much for seeing Ms. Simmons. Sincerely, Charito Dalton M.D. Physical Medicine & Rehabilitation JMP/cmt Electronically Signed By: CHARITO DALTON MD On: 05/06/2011 06:08 PM Source: [facility] MHSDOLBEYNONRADSYS Document Id: [id number] STER OR DAMAGE CONTROL SPECIALIST documented in this encounter Plan of Treatment Upcoming Encounters Date Type Specialty Care Team Description 03/25/2022 Office Visit Family Medicine Leslie Gonzalez M.D. [address] [place] [phone] (Wo rk) documented as of this encounter Visit Diagnoses Not on filedocumented in this encounter
--- OUTSIDE RECORDS SUMMARY | 2022-03-22 15:51 | XMS_ITS | Encounter Summary ---
:1950 Author Organization [facility] Address [address] [place] [address] Care Team Providers Name Role Phone Unavailable Primary Care Provider Unavailable Encounter Details Date Type Department Care Team Description 02/11/2012 Hospital Encounter HX [facility] Ken Dalton M.D. [address] [place] [address], [address] [place], [place] [phone] (Wo rk) Social History Tobacco Use Types [...] Sign Reading Time Taken Comments Blood Pressure 132/70 02/11/2012 8:08 AM CDT Pulse - - Temperature - - Respiratory Rate - - Oxygen Saturation - - Inhaled Oxygen Concentration - - Weight 87.5 kg (192 lb 14.4 oz) 02/11/2012 8:08 AM CDT Height - - Body Mass Index 31.95 09/21/2011 8:54 AM CDT documented in this [...] encounter Progress Notes Charito Dalton M.D. - 02/11/2012 7:56 AM CDT [id number] HISTORY OF PRESENT ILLNESS Follow-up low back and bilateral lower extremity pain. Ms. Simmons returns today in followup. On January 25, I performed a L5-S1 interlaminar epidural corticosteroid injection. She reports this has helped her symptoms. She finds that she is able to walk much easier and further than she was previously prior to the injection. However, when the injection waslast performed 2 years ago, she had complete resolution of her symptoms and that has not been the case this time. Her right lower extremity symptoms have primarily resolved but she continues to have symptoms on the left. She describes pain that can occur in the left gluteal region and left posterior thighs to the level of the knee after she has been ambulating for a period of time, or when she in her garden doing a lot of work. However, she is able to walk further than she was previous to the injection but the pain still is present. She also had some symptoms on her right although they are near as prominent as the left but if she continues to walk then she will start to develop pain in the right as well. Overall she feels the injection has helped significantly but not to the extent that it did the first time that it was performed. She denies any new symptoms such as change in bowel or bladder habits, fever or chills, or recent unintentional weight loss. IMPRESSION/REPORT/PLAN 1. Low back and bilateral lower extremity pain, most consistent with lumbar spinal stenosis 2. Small fiber peripheral neuropathy. Ms. Simmons has made progress following the L5-S1 interlaminar epidural corticosteroid injection, but continues to be bothered by pain primarily now in the left lower extremity although less than it was previously to the left L5-S1 interlaminar epidural corticosteroid injection. PLAN 1. I discussed various options for management with Ms. Simmons, including the possibility of proceeding with a left L5 transforaminal epidural corticosteroid injection. After discussing this with her, we have decided to see how things progress over the next several weeks as she has had significant improvement. If she were to plateau or have any worsening symptoms I think that would be the next stepto consider based on her current distribution of symptoms. She did meet with Dr. Warren, neurosurgeon at [facility] and he recommended continued conservative management at this time. 2. Ms. Simmons will be in contact with us in 1 month to let us know how she is progressing and monica knows to be in contact with me prior to that time if she notes any worsening or worrisome symptoms which we went over in detail today. She voiced agreement and understanding with this plan. Charito Dalton M.D./shane Electronically Signed By: CHARITO DALTON MD On: 02/21/2012 11:04 AM Modified by and Electronically Signed by: CHARITO DALTON MD On: 02/21/2012 11:04 AM Source: [facility] MHSDOLBEYNONRADSYS Document Id: [id number] documented in this encounter Miscellaneous Notes Miscellaneous - Monserrat Paris P.A.-C. - 05/01/2012 9:34 AM CST Reminder Msg Document Contains Addenda Addendum by CHARITO DALTON MD on 05 May 2012 16:33:33 OCCUPATIONAL THERAPY ASSISTANT From: CHARITO DALTON MD To: MONSERRAT PARIS; Sent: 05/05/2012 16:33:33 OCCUPATIONAL THERAPY ASSISTANT Show up: 05/05/2012 16:33:00 OCCUPATIONAL THERAPY ASSISTANT Subject: RE: Reminder Msg Thanks for letting me know. Addendum by MONSERRAT PARIS on 05 May 2012 15:27:28 OCCUPATIONAL THERAPY ASSISTANT From: MONSERRAT PARIS To: MONSERRAT PARIS; Sent: 05/05/2012 15:27:28 OCCUPATIONAL THERAPY ASSISTANT Show up: 05/05/2012 15:27:00 OCCUPATIONAL THERAPY ASSISTANT Subject: RE: Reminder Msg Mayra is feeling some better. The pain in her leg is better but she still has pain in her low back area. From: MONSERRAT PARIS To: MONSERRAT PARIS; Sent: 05/01/2012 09:34:58 OCCUPATIONAL THERAPY ASSISTANT Show up: 05/05/2012 09:34:00 OCCUPATIONAL THERAPY ASSISTANT Subject: Reminder Msg Please Remember to: see how she is feeling after inj PATIENT: ( ) Call Patient ( ) Ask Patient to ( ) ( ) Call Relative ( ) Schedule Patient ( ) ( ) Call for Occupational Physician ( ) Follow up on Results ( ) Other: PROVIDER: ( ) Call Physician ( ) Call Pharmacist ( ) Call Lab ( ) Other: Special Instructions: Comments: Source: [facility] POWERCHART Document Id: [id number] Electronically signed by Aaron, [facility] Cardiovascular Invasive Specialist [id number] at 11/06/2016 5:48 PM CDT Miscellaneous - Charito Dalton M.D. - 02/11/2012 8:46 AM CDT [place] [address] Visit Information Name: MAYRA SIMMONS Current Date: 02/11/2012 08:46:40 Physicians Attending Provider: CHARITO DALTON MD Primary [...] 40 mg Oral two times a day pregabalin (Lyrica 150 mg oral capsule) 150 mg Oral once a day (at bedtime) Pt of Dr Fuchs, written order from Dr Serna pregabalin (Lyrica 75 mg oral capsule) 75 mg Oral once a day terbinafine (terbinafine 250 mg oral [...] No Appointments found Your Goals/Additional instructions: Source: [facility] POWERCHART Document Id: [id number] Miscellaneous - Charito Dalton M.D. - 02/11/2012 8:46 AM CDT Ambulatory Depart Summary [address] [address] Visit Information Name: MAYRA SIMMONS Visit Date: 02/11/2012 08:46:39 Attending Provider: CHARITO DALTON MD Primary Care [...] 40 mg Oral two times a day pregabalin (Lyrica 150 mg oral capsule) 150 mg Oral once a day (at bedtime) Pt of Dr Fuchs, written order from Dr Serna pregabalin (Lyrica 75 mg oral capsule) 75 mg Oral once a day terbinafine (terbinafine 250 mg oral [...] your provider for clarification. Additional Information: Source: [facility] POWERCHART Document Id: [id number] Miscellaneous - Monserrat Paris P.A.-C. - 02/11/2012 8:08 AM CDT Adult Diploma Dental Assistant Intake/History Adult Diploma Dental Assistant Intake/History Entered On: 02/11/2012 8:09 CDT Performed On: 02/11/2012 8:08 CDT by MONSERRAT PARIS Intake Systolic Blood Pressure : 132mmHg Diastolic Blood Pressure : 70mmHg NIBP Mean : 91mmHg BP Location : Right upper extremity Blood Pressure Cuff Size : Large Actual Weight : 87.5kg(Converted to: 192lb 14oz) Weight Source : Standing scale Dosing Weight Clinic : 87.50kg MONSERRAT PARIS - 02/11/2012 8:08 CDT Subjective Pain Symptoms : No MONSERRAT PARIS - 02/11/2012 8:08 CDT Dependent Habits Tobacco Use/Currently Using : No Exposure to Tobacco Smoke : Other: quit 03/1994 Smoking Status : Former smoker MONSERRAT PARIS - 02/11/2012 8:08 CDT Caffeine Use Grid Caffeine Use : Current Type : Tea Frequency : Daily Amount : 3 cups MONSERRAT PARIS - 02/11/2012 8:08 CDT Recreational Drug Use Grid Drug Use : None MONSERRAT PARIS - 02/11/2012 8:08 CDT Allergy Allergies (Active) amoxicillin Estimated Onset Date: Unspecified ; Reactions: diarrhea ; Created By: SUNSHINE ANGLIN; Reaction Status: Active ; Category: Drug ; Substance: amoxicillin ; Type: Allergy ; Updated By: SUNSHINE ANGLIN; Reviewed Date: 12/21/2011 15:31 CDT Levaquin Estimated Onset Date: Unspecified ; Reactions: hives ; Created By: SUNSHINE ANGLIN; Reaction Status: Active ; Category: Drug ; Substance: Levaquin ; Type: Allergy ; Updated By: SUNSHINE ANGLIN; Reviewed Date: 12/21/2011 15:31 CDT morphine Estimated Onset Date: Unspecified ; Reactions: hives ; Created By: SUNSHINE ANGLIN; Reaction Status: Active ; Category: Drug ; Substance: morphine ; Type: Allergy ; Updated By: SUNSHINE ANGLIN; Reviewed Date: 12/21/2011 15:31 CDT piroxicam Estimated Onset Date: Unspecified ; Reactions: swollen hands and feet, ankles ; Created By: SUNSHINE ANGLIN; Reaction Status: Active ; Category: Drug ; Substance: piroxicam ; Type: Allergy; Updated By: SUNSHINE ANGLIN; Reviewed Date: 12/21/2011 15:31 CDT Source: [facility] POWERCHART Document Id: [id number] documented in this encounter Plan of Treatment Upcoming Encounters Date Type Specialty Care Team Description 03/25/2022 Office Visit Family Medicine Leslie Gonzalez M.D. [address] [place] [phone] (Wo rk) documented as of this encounter Visit Diagnoses Not on filedocumented in this encounter
--- OUTSIDE RECORDS SUMMARY | 2022-03-22 15:51 | XMS_ITS | Encounter Summary ---
:[address] [facility] Address [address] [place] [address] Care Team Providers Name Role Phone Unavailable Primary Care Provider Unavailable Encounter Details Date Type Department Care Team Description 10/31/2012 Hospital Encounter HX [facility] Rolanda Serna M.D. Social History Tobacco Use Types Packs/Day Years Used Date Smoking Tobacco: Never Assessed Alcohol Habits Answer Date Recorded How often do you have a drink containing 4 or more times a w [place] 10/05/2021 alcohol? How many drinks containing alcohol [...] or relatives? How often do you attend mu-ism or 1 to 4 times per year 07/2021 adventist services? Do you belong to any clubs or Yes 10/05/2021 organizations such as mu-ism groups, unions, fraternal or athletic groups, or [...] Sign Reading Time Taken Comments Blood Pressure 110/60 10/31/2012 11:09 AM CDT Pulse 60 10/31/2012 11:09 AM CDT Temperature - - Respiratory Rate 16 10/31/2012 11:09 AM CDT Oxygen Saturation - - Inhaled Oxygen Concentration - - Weight 87 kg (191 lb 12.8 oz) 10/31/2012 11:09 AM CDT Height - - Body Mass Index 31.01 10/09/2012 10:55 AM CDT documented in this [...] encounter Progress Notes Pawel Serna M.D. - 10/31/2012 10:50 AM CDT [id number] CHIEF COMPLAINT/REASON FOR VISIT Recheck left rib pain, elevated cholesterol and tiredness. HISTORY OF PRESENT ILLNESS This 62-year-old female patient is having problem with tiredness and did not do a TSH with part of her previous testing so will do that today. She also has elevated cholesterol. LDL is elevated and also was the HDL. Would feel that the LDL was at a level that should be treated so will start her on Lipitor 40 mg daily and in a month get a lipid panel and AST. Patient also continues to have left rib pain. She has some tenderness over the left lower rib anterior laterally but she also has some pain with twisting and tilting to that side and may be having pain related to thoracic nerve impingement. Discussed doing MRI of her thoracic spine and she would like to check with Dr. Dalton to see if he thinksthat would be a good thing for her to do. She can call [facility] in a few days to talk to or talk to Dr. Dalton at her appointment in mid November. Recheck with me in a month. She states the pain is not severe but she wants it to go away. EMR record reviewed and updated. SYSTEMS REVIEW 1. Respiratory: No cough or shortness of breath. 2. Cardiovascular: No palpitation of the heart, no chest pain. 3. GI: Some problem with diarrhea and constipation. No nausea, vomiting, or recent change in weight. 4. : No dysuria, no hematuria. 5. Soreness to the rib area. Needs the test results explained. Low back pain and leg pain, numbness in the feet getting an injection November 15 and tired all the time. All other systems reviewed and negative, except as mentioned above. PHYSICAL EXAMINATION Patient is tender over left anterior lateral lower rib and with flexion extension of the spine has some pain in the lumbar area with extension. No thoracic pain but with rotation to the right and left lateral tilting she tends to have pain in her left posterior lower thoracic spine area, mid scapular area inferiorly. IMPRESSION/REPORT/PLAN Left rib pain and questionable thoracic pain. Consider MRI of the back. Recheck with Dr. Dalton as nointernal findings were found for the cause of her problem, hypercholesterolemia. Plan Lipid panel and AST in 1 month after taking Lipitor 40 mg daily generic if needed, for tiredness getTSH and recheck with me in 1 month return sooner as needed. Nature of problem, treatment with medication, followup care explained. Pawel Serna M.D./[place] Electronically Signed By: PAWEL SERNA MD On: 11/01/2012 03:52 PM Source: [facility] MHSDOLBEYNANGELASYS Document Id: [id number] documented in this encounter Miscellaneous Notes Miscellaneous - Pawel Serna M.D. - 11/01/2012 8:35 AM CDT Normal Results Letter 01 Nov 2012 MAYRA SIMMONS [address] [facility] [id number] Dear MAYRA ROSALBA, I am pleased to report that your results from the following diagnostic test(s) are normal. Please follow up with us as we discussed during your visit or sooner if you have any concerns. If you have questions or concerns, please do not hesitate to call our office. Thyroid test ok. Result Name Current Result Normal Range TSH, Sensitive-Merrill (mIU/L) 0.7 10/31/2012 0.3-5.0 - Sincerely, PAWEL SERNA [address] [place] [address] Electronic Signature Electronically Signed By: PAWEL SERNA MD On: 01 Nov 2012 This document has images extracted. Source: [facility] POWERCHART Document Id: [id number] Electronically signed by Aaron [facility] Center[facility] Crawler Tractor Operator [id number] at 11/03/2016 1:45 PM CDT Miscellaneous - Pawel Serna M.D. - 10/31/2012 11:43 AM CDT Ambulatory Patient Summary [address] [place] [address] Visit Information Name: MAYRA SIMMONS [facility] Number: [id number] Current Date: 10/31/2012 11:43:26 Physicians Attending Provider: PAWEL SERNA MD Primary [...] No Appointments found Your Goals/Additional instructions: Source: [facility] POWERCHART Document Id: [id number] Miscellaneous - Pawel Serna M.D. - 10/31/2012 11:43 AM CDT Ambulatory Depart Summary [address] [address] Visit Information Name: MAYRA SIMMONS [facility] Number: [id number] Visit Date: 10/31/2012 11:43:25 Attending Provider: PAWEL SERNA MD Primary Care [...] your provider for clarification. Additional Information: Source: [facility] POWERCHART Document Id: [id number] Miscellaneous - Conversion, Historical Provider Ser - 10/31/2012 11:09 AM CDT Adult Ship Erector Intake/History Adult Ship Erector Intake/History Entered On: 10/31/2012 11:12 CDT Performed On: 10/31/2012 11:09 CDT by MAYRA DANG Intake Chief Complaint : Review test results Temperature Core : 36.9 DegC(Converted to: 98.4 DegF) Peripheral Pulse Rate : 60 /min Respiratory Rate : 16 /min Systolic Blood Pressure : 110 mmHg Diastolic Blood Pressure : 60 mmHg NIBP Mean : 77 mmHg BP Location : Right upper extremity Blood Pressure Cuff Size : Large Actual Weight : 87 kg(Converted to: 191 lb 13 oz) Dosing Weight Clinic : 87 kg MAYRA DANG 10/31/2012 11:09 CDT General Info Languages : Cambodian MAYRA DANG 10/31/2012 11:09 CDT Subjective Pain Symptoms : Yes MAYRA DANG 10/31/2012 11:09 CDT Pain Pain Assessment Grid Pain 1 Location : Chest Laterality : Left MAYRA DANG 10/31/2012 11:09 CDT Dependent Habits Tobacco Use/Currently Using : No Exposure to Tobacco Smoke : Other: quit 03/1994 Smoking Status : Former smoker MAYRA DANG 10/31/2012 11:09 CDT Caffeine Use Grid Caffeine Use : Current Type : Chocolate, Soft drinks, Tea Frequency : Daily MAYRA DANG 10/31/2012 11:09 CDT Recreational Drug Use Grid Drug Use : None MAYRA DANG 10/31/2012 11:09 CDT Source: [employer] Document Id: [id number] CDT!34 documented in this encounter Plan of Treatment Upcoming Encounters Date Type Specialty Care Team Description 03/25/2022 Office Visit Family Medicine Leslie Gonzalez M.D. [address] [place] [address] [phone] (Wo rk) documented as of this encounter Procedures Procedure Name Priority Date/Time Associated Diagnosis Comme nts THYROID-STIMULATING Routine 10/31/2012 11:47 AM R esults for this HORMONE-SENSITIVE CDT procedure are in (S-TSH) the results section. documented in this encounter Results Thyroid-Stimulating Hormone-Sensitive (s-TSH) (10/31/2012 11:47 AM CDT) P athologist Signature TSH, Sensitive 0.7 0.3 - 5.0 POWERCHART HERMILO Comment: Test Performed by: [place] [address] Beater Machine Operator: Wolf stubbs III, M.D. Specimen (Source) Anatomical Collection Method Collection Time Re ceived Time Location / / Volume Laterality Blood 10/31/2012 11:47 AM CDT Pawel Serna M.D. LAB BLOOD ADD-ON Performing Organization Address City/State/ZIP Code Phon e Number POWERCHART documented in this encounter Visit Diagnoses Not on filedocumented in this encounter
--- OUTSIDE RECORDS SUMMARY | 2022-03-22 15:52 | XMS_ITS | Encounter Summary ---
:1950 Author Organization [facility] Address [address] [place] [address] Care Team Providers Name Role Phone Unavailable Primary Care Provider Unavailable Encounter Details Date Type Department Care Team Description 02/11/2011 Hospital Encounter HX [facility] Ken Dalton M.D. [address] [place] [address], [address] [place], [place] [phone] (Wo rk) Social History Tobacco Use Types Packs/Day Years Used Date Smoking Tobacco: Never Assessed Alcohol Habits Answer Date Recorded How often do you have a drink containing 4 or more times a w [place] 10/05/2021 alcohol? How many drinks containing alcohol [...] 1 to 4 times per year 07/2021 gnosticism services? Do you belong to any clubs [...] encounter Progress Notes Charito Dalton M.D. - 02/11/2011 12:00 AM CDT [id number] CHIEF COMPLAINT / REASON FOR VISIT Follow up left knee pain and bilateral hand and foot paresthesias and lumbar spinal stenosis. HISTORY OF PRESENT ILLNESS Ms. Simmons returns today in followup. Overall, she is doing very well. Very occasionally she can have some mild discomfort in the posterior aspect of her left knee but this is very infrequent. She is able to do everything that she wants to do from a functional standpoint including walking two to three miles per day for exercise without any difficulty. She was very active in her garden yesterday and did not have any discomfort. She was able to squat, do everything that she wanted to do without any pain. The Lyrica that Dr. Fuchs prescribed has helped her very much as well. She is currently taking 75 milligrams twice daily and the hand and feet paresthesias have almost completely resolved. They are still present to some extent but are no longer bothersome for her. She reports that when she initially transitioned from Gabapentin to the Lyrica she was having issues with balance and feeling lightheaded and having difficulty with memory but everything has resolved except for some mild difficulty with her balance at this point. She also reports that her low back pain is doing well. She was sore this morning after spending so much time in her garden yesterday but she reports that feels more like a muscle pain to her than any discomfort that she was having previously. She again denies any radiating pain into her lower extremities like she was having previously as well. She is using Lyrica 75 milligrams twice daily and typically Aleve 1-2 tablets daily and extra-strength Tylenol as needed depending on how active she is. PHYSICAL EXAM None performed today. IMPRESSION/REPORT/PLAN 1. Left knee pain 2. Left posteromedial meniscal tear 3. Left knee popliteal cyst 4. Lumbar spinal stenosis 5. Bilateral hand and foot paresthesias Overall, Ms. Simmons is doing very well. We had discussed today that if she were not improved with respect to her left knee, we may consider a referral to an orthopedic surgeon with respect to her left medial meniscal tear. However, as she is doing so well and not having any mechanical symptoms, we are going to defer that currently. She did have evidence either for an extension of her popliteal cyst or ganglion cyst in the posterior thigh. We also discussed if her pain were still present in that area, we may consider aspirating that but that is no longer painful for her so we will just continue to follow that and treat that as needed. PLAN 1. I will plan no formal follow up with Ms. Simmons at this time as she is doing so well. She does have a follow up scheduled with Dr. Fuchs next week and again I appreciate Dr. Fuchs's input very much with respect to Ms. Simmons's situation. 2. I told Ms. Simmons that I would be happy to see her back at any time in the future should she have any recurrence of her left knee pain or any issues with her low back pain. Ms. Simmons voiced agreement and understanding with this plan. AILIN/adelfo Signed Charito Dalton M.D. Physical Medicine & Rehabilitation Electronically Signed By: CHARITO DALTON MD On: 02/18/2011 01:49 PM Modified by and Electronically Signed by: CHARITO DALTON MD On: 02/18/2011 01:49 PM Source: [facility] MHSDOLBEYNONRADSYS Document Id: [id number] documented in this encounter Miscellaneous Notes Miscellaneous - Charito Dalton M.D. - 02/11/2011 10:03 AM CDT Ambulatory Patient Summary [address] [address] Visit Information Name: STEPH SIMMONS Current Date: 02/11/2011 10:03:21 Primary Care Provider: PAWEL SERNA MD Your Medications Here is a list of your medications. It is important to take your medications as directed. Use a pillbox or chart to help remind you to take your medications. Please let your doctor or nurse know if you have problems taking your medications. Medication/Strength Dose Route Frequency Indications/Special Instructions/Comments bifidobacterium infantis (Align 4 mg oral capsule) [...] Active Partial colectomy Active H/O: hysterectomy Active Your Recommendations We want to make sure [...] Test/Treatment Last Done Next Due Additional Information Screening Colonoscopy or Flex Sig or Occult Blood X3 05/20/2000 05/18/2010 Checks for signs of cancer of the colon. Screening Mammogram every 1 year Women 40-75 01/07/2011 01/07/2012 X-rays of breast to check for breast cancer. Lipid Panel every 5 years Age 20-75 04/18/2007 04/16/2012 Checks blood for good (HDL) and bad (LDL) cholesterol. Know your numbers, they are one indicator of your risk for heart attack and stroke. Vaccine: Flu every 1 year 02/11/2011 Immunization to help prevent you from getting the flu strain expected to be a problem for that year's flu season. Vaccine: Tetanus every 10 years 01/27/2010 01/25/2020 Immunization to help prevent you from getting the serious disease Tetanus (Lockjaw). Your Upcoming Appointments Date Time Location Reason Provider 02/23/2011 13:30 [facility] Neurology f/u meds for neuropathy Jessenia Fuchs MD 02/23/2011 13:30 [facility] Neurology f/u meds for neuropathy/LM need to pietro appt 01/20/11 Jessenia Fuchs MD 02/23/2011 13:30 [facility] Neurology f/u meds for neuropathy/LM to pietro. 12/30/10 Jessenia Fuchs MD Your Goals/Additional instructions: Source: [facility] POWERCHART Document Id: [id number] Electronically signed by Aaron, [facility] Parts Order And Stock Clerk [id number] at 11/07/2016 2:46 PM CDT Miscellaneous - Charito Dalton M.D. - 02/11/2011 10:03 AM CDT Ambulatory Depart Summary [address] [address] Visit Information Name: STEPH SIMMONS Current Date: 02/11/2011 10:03:19 Primary Care Provider: PAWEL SERNA MD STEPH SIMMONS has been given the following list of medications: Your Medications It is important to take your medications as directed. Use a pill box or chart to help remind you to take your medications. Please let your doctor or nurse know if you have problems taking your medications. Medication/Strength Dose Route Frequency Indications/Special Instructions/Comments bifidobacterium infantis (Align 4 mg oral capsule) [...] (multivitamin) once a day Additional Information: Source: [facility] POWERCHART Document Id: [id number] Electronically signed by Aaron [facility] Parts Order And Stock Clerk [id number] at 11/07/2016 2:46 PM CDT Miscellaneous - Monserrat Paris P.AOlayinka - 02/11/2011 9:25 AM CDT Adult Flake Miller Helper Intake/History Adult Flake Miller Helper Intake/History Entered On: 02/11/2011 9:25 CDT Performed On: 02/11/2011 9:25 CDT by MONSERRAT PARIS Intake Systolic Blood Pressure: 136mmHg Diastolic Blood Pressure: 72mmHg NIBP Mean: 93mmHg BP Location: Left upper extremity Weight Source: Other: refused MONSERRAT PARIS - 02/11/2011 9:25 CDT Subjective Pain Symptoms: No MONSERRAT PARIS - 02/11/2011 9:25 CDT Dependent Habits Tobacco Use/Currently Using: No [place] MONSERRAT CARUSO - 02/11/2011 9:25 CDT Caffeine Use Grid Caffeine Use: Current Type: Chocolate, Soft drinks, Tea Frequency: Occasionally MONSERRAT PARIS - 02/11/2011 9:25 CDT Allergy Allergies (Active) amoxicillin Estimated Onset [...] ANGLIN; Reviewed Date: 01/01/2011 13:09 CDT Source: [facility] POWERCHART Document Id: [id number] CDT!16 Miscellaneous - Monserrat Paris P.A.-C. - 02/11/2011 9:25 AM CDT Ambulatory Vitals Height Weight Ambulatory Vitals Height Weight Entered On: 02/11/2011 9:25 CDT Performed On: 02/11/2011 9:25 CDT by PARIS, MONSERRAT ZULY Vitals/Ht/Wt Systolic Blood Pressure: 128mmHg Diastolic Blood Pressure: 72mmHg NIBP Mean: 91mmHg BP Location: Left upper extremity MONSERRAT PARIS - 02/11/2011 9:25 CDT Source: [facility] [employer] Document Id: [id number] CDT!6 documented in this encounter Plan of Treatment Upcoming Encounters Date Type Specialty Care Team Description 03/25/2022 Office Visit Family Medicine Leslie Gonzalez M.D. [address] [place] [address] [phone] (Wo rk) documented as of this encounter Visit Diagnoses Not on filedocumented in this encounter
--- OUTSIDE RECORDS SUMMARY | 2022-03-22 15:52 | XMS_ITS | Encounter Summary ---
:1950 Author Organization [facility] Address [address] [place] [address] Care Team Providers Name Role Phone Unavailable Primary Care Provider Unavailable Encounter Details Date Type Department Care Team Description 11/27/2008 Hospital Encounter HX NO MAPPING Dean Hutchinson M.D. Social History Tobacco Use Types Packs/Day [...] Visit Family Medicine Leslie Gonzalez M.D. [address] [place] [address] [place], [place] [phone] (Wo rk) documented as of this encounter Procedures Procedure Name Priority Date/Time Associated Diagnosis Comme nts BI BREAST SCREENING Routine 11/27/2008 7:45 AM Re sults for this BILATERAL CDT procedure are i n the results section. documented in this encounter Results BI Breast Screening Bilateral (11/27/2008 7:45 AM CDT) Anatomical Region Laterality Modality Breast Bilateral Mammography Specimen (Source) Anatomical Collection Method Collection Time Re ceived Time Location / / Volume Laterality 11/27/2008 7:45 AM CDT Impressions 11/27/2008 7:45 AM CDT BI-RADS 1. ??NEGATIVE. ?? RECOMMENDATION: Routine yearly mammogram . Narrative 11/27/2008 7:45 AM CDT Originally Signed By UNKNOWN, PERSONNEL Reason for exam: YEARLY Bilateral digital screening Mammography with computer-aided detection, CAD. ?? COMPARISON: 11/08/2007. ?? HISTORY: No breast complaints or breast problems. Patient had pain and itching for several months but no pain o r aging today. ?? FINDINGS: Tissue density is heterogeneou sly dense. ? Procedure Note Provider, Tammy Benz - 11/09/2016F ormatting of this note might be different from the original. Originally Signed By UNKNOWN, PERSONNEL Reason for exam: YEARLY Bilateral digital screening Mammography with computer-aided detection, CAD. COMPARISON: 11/08/2007. HISTORY: No breast complaints or breast problems. Patient had pain and itching for several months but no pain o r aging today. FINDINGS: Tissue density is heterogeneou sly dense. IMPRESSION: BI-RADS 1. NEGATIVE. RECOMMENDATION: Routine yearly mammogram . Historical Provider IMG BI PROCEDURES documented in this encounter Visit Diagnoses Not on filedocumented in this encounter
--- OUTSIDE RECORDS SUMMARY | 2022-03-22 15:52 | XMS_ITS | Encounter Summary ---
:1950 Author Organization [facility] Address [address] [place] [address] Care Team Providers Name Role Phone Unavailable Primary Care Provider Unavailable Encounter Details Date Type Department Care Team Description 01/01/2011 Hospital Encounter HX [facility] Ken Dalton M.D. [address] [place] [address], [address] [place], [place] [phone] (Wo rk) Social History Tobacco Use Types [...] 1 to 4 times per year 07/2021 gnosticist services? Do you belong to any clubs [...] of this encounter Miscellaneous Notes Miscellaneous - Adrian Dalton M.D. - 01/01/2011 2:24 PM CD[place] [address] Visit Information Name: MAYRA SIMMONS ANN Current Date: 01/01/2011 14:23:59 Primary Care Provider: PAWEL SERNA MD Your [...] for one week, then 1 cap bid gabapentin (gabapentin 600 mg oral tablet) 600 mg Oral three times a day glucosamine-chondroitin (glucosamine-chondroitin) once a [...] Screening Mammogram every 1 year Women 40-75 12/09/2009 12/09/2010 X-rays of breast to check for breast cancer. Lipid Panel every 5 years Age 20-75 04/18/2007 04/16/2012 Checks blood for good (HDL) and bad (LDL) cholesterol. Know your numbers, they are one indicator of your risk for heart attack and stroke. Vaccine: Flu every 1 year 01/01/2011 Immunization to help prevent you from getting the flu strain expected to be a problem for that year's flu season. Vaccine: Tetanus every 10 years 01/27/2010 01/25/2020 Immunization to help prevent you from getting the serious disease Tetanus (Lockjaw). Your Upcoming Appointments Date Time Location Reason Provider 02/04/2011 08:30 [facility] PM&R rc Adrian Dalton MD 02/24/2011 11:00 [facility] Neurology f/u meds for neuropathy Jessenia Fuchs MD 02/24/2011 11:00 FB Neurology f/u meds for neuropathy/LM to pietro. 12/30/10 Jessenia Benítez MD Your Goals/Additional instructions: Source: [facility] POWERCHART Document Id: [id number] Electronically signed by Conversion, [facility] Director Public Policy [phone] at 11/07/2016 4:06 PM CDT Miscellaneous - Adrian Dalton M.D. - 01/01/2011 2:23 PM CDT [place] [address] Visit Information Name: ROSALBA MONSTER Current Date: 01/01/2011 14:23:58 Primary Care Provider: PAWEL SERNA MD MAYRA [...] for one week, then 1 cap bid gabapentin (gabapentin 600 mg oral tablet) 600 mg Oral three times a day glucosamine-chondroitin (glucosamine-chondroitin) once a day acetaminophen (Tylenol 500 mg oral tablet) Oral three times a day naproxen (Aleve 220 mg oral tablet) 2 tab(s) Oral every 8 hours as needed for pain pantoprazole (Protonix) 40 mg Oral two times a day calcium-vitamin D (Calcium 600+D) Oral two times a day multivitamin (multivitamin) once a day Additional Information: Source: [facility] POWERCHART Document Id: [id number] Electronically signed by Conversion, [facility] Director Public Policy [phone] at 11/07/2016 4:06 PM CDT Miscellaneous - Monserrat Paris P.A.-C. - 01/01/2011 1:04 PM CDT Adult Provider Relations Coordinator Intake/History Adult Provider Relations Coordinator Intake/History Entered On: 01/01/2011 13:05 CDT Performed On: 01/01/2011 13:04 CDT by MONSERRAT PARIS Systolic Blood Pressure: 124mmHg Diastolic Blood Pressure: 60mmHg NIBP Mean: 81mmHg BP Location: Right upper extremity Actual Weight: 85.200kg(Converted to: 187lb 13oz) Weight Source: Standing scale Dosing Weight Clinic: 85.20kg MONSERRAT PARIS - 01/01/2011 13:04 CDT Subjective Pain Symptoms: No MONSERRAT PARIS - 01/01/2011 13:04 CDT Dependent Habits Tobacco Use/Currently Using: No MONSERRAT PARIS - 01/01/2011 13:04 CDT Caffeine Use Grid Caffeine Use: Current Type: Chocolate, Soft drinks, Tea Frequency: Occasionally MONSERRAT PARIS - 01/01/2011 13:04 CDT Allergy Allergies (Active) amoxicillin Estimated Onset Date: Unspecified ; Reactions: diarrhea ; Created By: SUNSHINE ANGLIN; Reaction Status: Active ; Category: Drug ; Substance: amoxicillin ; Type: Allergy ; Updated By: SUNSHINE ANGLIN; Reviewed Date: 12/18/2010 8:34 CDT Levaquin Estimated Onset Date: Unspecified ; Reactions: hives ; Created By: SUNSHINE ANGLIN; Reaction Status: Active ; Category: Drug ; Substance: Levaquin ; Type: Allergy ; Updated By: SUNSHINE ANGLIN; Reviewed Date: 12/18/2010 8:34 CDT morphine Estimated Onset Date: Unspecified ; Reactions: hives ; Created By: SUNSHINE ANGLIN; Reaction Status: Active ; Category: Drug ; Substance: morphine ; Type: Allergy ; Updated By: SUNSHINE ANGLIN; Reviewed Date: 12/18/2010 8:34 CDT piroxicam Estimated Onset Date: Unspecified ; Reactions: swollen hands and feet, ankles ; Created By: SUNSHINE ANGLIN; Reaction Status: Active ; Category: Drug ; Substance: piroxicam ; Type: Allergy; Updated By: SUNSHINE ANGLIN; Reviewed Date: 12/18/2010 8:34 CDT Source: [facility] Seeq Document Id: [id number] CDT!18 documented in this encounter Plan of Treatment Upcoming Encounters Date Type Specialty Care Team Description 03/25/2022 Office Visit Family Medicine Leslie Gonzalez M.D. [address] [place] [address] [phone] (Wo rk) documented as of this encounter Visit Diagnoses Not on filedocumented in this encounter
--- OUTSIDE RECORDS SUMMARY | 2022-03-22 15:52 | XMS_ITS | Encounter Summary ---
:1950 Author Organization [facility] Address [address] [place] [address] Care Team Providers Name Role Phone Unavailable Primary Care Provider Unavailable Encounter Details Date Type Department Care Team Description 10/30/2009 Hospital Encounter HX [facility] Rolanda Serna M.D. Social History Tobacco Use Types Packs/Day Years Used Date Smoking Tobacco: Never Assessed Alcohol Habits Answer Date Recorded How often do you have a drink containing 4 or more times a w kiana 10/05/2021 alcohol? How many drinks containing alcohol [...] encounter Progress Notes Pawel Serna M.D. - 10/30/2009 12:00 AM CDT [id number] IMPRESSION/REPORT/PLAN 1. Estrogen replacement therapy for menopause. Stopping the estrogen by tapering off is and recheck during the next month PRN. CHIEF COMPLAINT/REASON FOR VISIT Would like to go off estrogen HISTORY OF PRESENT ILLNESS This 59 1/2 -year-old female patient has been on estrogen since she had hysterectomy in 1993. She would like to go off the estrogen. She is on Estradiol 0.5 mg daily. She has a few tablets left and she will go to 1 every other day until gone. She will call back if she needs more of a taper if she starts having hot flashes. Risk and benefits of staying on the medicine explained. Patient does have estrogen on board to help with menopausal symptoms vaginal atrophy possible slight decrease in colon cancer risk but has increased risk for clotting and acceleration of some cancer such as breast possible some affect on memory and liver. She otherwise is only taking Protonix, no other medicines. She did not need any other cares today. Electronic medical record reviewed and updated initialized. CURRENT MEDICATIONS See depart summary from today ALLERGIES See EMR SYSTEMS REVIEW 1. Respiratory: No cough or shortness of breath. 2. Cardiovascular: No palpitation of the heart, no chest pain. 3. GI: No nausea, vomiting, diarrhea, constipation or recent change in weight. 4. : No dysuria, no hematuria. 5. All other systems reviewed and negative, except as mentioned above. PAST MEDICAL/SURGICAL HISTORY See EMR PREVENTIVE SERVICES See EMR SOCIAL HISTORY See EMR FAMILY HISTORY See EMR VITAL SIGNS See EMR PHYSICAL EXAM AREA EXAM TEXT HEART Heart: no murmur, gallop or rub, regular rate, normal size and PMI, arteries normal. LUNGS Lungs: clear to percussion and auscultation, normal to inspection, no difficulty breathing, no retractions, no asymmetry. ABDOMEN Abdomen: no masses, no organomegaly, nontender, no distention, normal appearance, bowel sounds normal. SFO/clf Signed Pawel Serna M.D. Family Medicine Electronically Signed By:PAWEL SERNA MD On 11/04/2009 09:58 AM Source: [facility] MHSDOLBEYNONRADSYS Document Id: [id number] documented in this encounter Miscellaneous Notes Miscellaneous - Pawel Serna M.D. - 10/30/2009 2:54 PM CDT [place] [address] Visit Information Name: MAYRA SIMMONS Current Date: 10/30/2009 14:54:52 Primary Care Provider: ROSALBA MONSTER has been given the following list of medications: Your Medications It is important to take your medications as directed. Use a pill box or chart to help remind you to take your medications. Please let your doctor or nurse know if you have problems taking your medications. Medication/Strength Dose Route Frequency Indications/Special Instructions/Comments pantoprazole (Protonix) 40 mg Oral once a day estradiol (estradiol 0.5 mg oral tablet) 0.5 mg Oral once a day needs appointment for recheck Additional Information: Yes - Current list of reconciled medications is provided and explained to the patient and/or family, guardian/caregiver. Source: [facility] POWERCHART Document Id: [id number] Electronically signed by Aaron [facility] Certified Ski Patroller [id number] at 11/08/2016 8:11 AM CDT Miscellaneous - Ronda Anglin L.PGiovanyN. 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 Entered On: 10/30/2009 14:42 CDT Performed On: 10/30/2009 14:41 CDT by RONDA ANGLIN Intake Chief Complaint: med check Peripheral Pulse Rate: 64bpm Respiratory Rate: 18br/min Systolic Blood Pressure: 128mmHg Diastolic Blood Pressure: 70mmHg NIBP Mean: 89mmHg BP Location: Left upper extremity Actual Weight: 84.600kg(Converted to: 186.511lb) Dosing Weight Clinic: 84.60kg RONDA ANGLIN - 10/30/2009 14:41 CDT Subjective Pain Symptoms: No RONDA ANGLIN - 10/30/2009 14:41 CDT Dependent Habits Tobacco Use/Currently Using: No RONDA ANGLIN - 10/30/2009 14:41 CDT Allergies Allergies (Active) amoxicillin Estimated Onset Date: Unspecified ; Reactions: diarrhea ; Created By: RONDA ANGLIN; Reaction Status: Active ; Category: Drug ; Substance: amoxicillin ; Type: Allergy ; Updated By: RONDA ANGLIN; Reviewed Date: 10/30/2009 14:40 CDT Levaquin Estimated Onset Date: Unspecified ; Reactions: hives ; Created By: RONDA ANGLIN; Reaction Status: Active ; Category: Drug ; Substance: Levaquin ; Type: Allergy ; Updated By: RONDA ANGLIN; Reviewed Date: 10/30/2009 14:39 CDT morphine Estimated Onset Date: Unspecified ; Reactions: hives ; Created By: RONDA ANGLIN; Reaction Status: Active ; Category: Drug ; Substance: morphine ; Type: Allergy ; Updated By: RONDA ANGLIN; Reviewed Date: 10/30/2009 14:39 CDT piroxicam Estimated Onset Date: Unspecified ; Reactions: swollen hands and feet, ankles ; Created By: RONDA ANGLIN; Reaction Status: Active ; Category: Drug ; Substance: piroxicam ; Type: Allergy; Updated By: RONDA ANGLIN; Reviewed Date: 10/30/2009 14:40 CDT Health History II Endocrine/Metabolic Past Med Hx Grid Diabetes: Grandparents, maternal grandmother PAWEL SERNA MD - 10/30/2009 14:55 CDT Oncologic Past Medical History Grid Lung/Bronchus Cancer: Father Other: Mother, stomach PAWEL SERNA MD - 10/30/2009 14:55 CDT Source: [facility] Cubicle Document Id: [id number] CDT!7 documented in this encounter Plan of Treatment Upcoming Encounters Date Type Specialty Care Team Description 03/25/2022 Office Visit Family Medicine Leslie Gonzalez M.D. [address] [place] [address] [phone] (Wo rk) documented as of this encounter Visit Diagnoses Not on filedocumented in this encounter
--- OUTSIDE RECORDS SUMMARY | 2022-03-22 15:52 | XMS_ITS | Encounter Summary ---
:1950 Author Organization [facility] Address [address] [place] [address] Care Team Providers Name Role Phone Unavailable Primary Care Provider Unavailable Encounter Details Date Type Department Care Team Description 05/28/2010 Hospital Encounter HX [facility] Ken Urrutia M.D. [address] [place] [address], [address] [place] [address] (Wo rk) Social History Tobacco Use Types Packs/Day Years Used Date Smoking Tobacco: Never Assessed Alcohol Habits Answer Date Recorded How often do you have a drink containing 4 or more times a w [place] 10/05/2021 alcohol? How many drinks [...] (two) times a day. VITAMIN D3 ORAL) MULTIVITAMIN ORAL daily. 0 01/27/2010 021 documented as of this encounter Plan of Treatment Upcoming Encounters Date Type Specialty Care Team Description 03/25/2022 Office Visit Family Medicine Leslie Gonzalez M.D. [address] [place] [address] [phone] (Wo rk) documented as of this encounter Procedures Procedure Name Priority Date/Time Associated Diagnosis Comme nts DX CERVICAL SPINE Routine 05/28/2010 8:21 AM Resu lts for this 2-3 VIEWS [employer] BU[employer]ER MECHANIC procedure are i n the results section. 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 ? FINDINGS: Some straightening of the cerv ical spine with loss of the normally expected lordotic curvature. ?? Mild to moderate degenerative disc space narrowing is present at C4-C5 and C5-C6 with some associated endplate spurring. ?? Normal alignment. ?? No evidence for fracture or focal bone d estruction. ?? Procedure Note Ras Ness D.O. / ProviderFarzad M.D. - 10/29/2016 Cervical spine. FINDINGS: Some straightening of the cerv ical spine with loss of the normally expected lordotic curvature. Mild to moderate degenerative disc space narrowing is present at C4-C5 and C5-C6 with some associated endplate spurring. Normal alignment. No evidence for fracture or focal bone d estruction. IMPRESSION: Degenerative disc space narr owing at C4-C5 and C5-C6 Shirley Figueroa(R), RGiovanyTGiovany(R)(M) IMG DIAGNOSTIC IM AGING PROCEDURES documented in this encounter Visit Diagnoses Not on filedocumented in this encounter
--- OUTSIDE RECORDS SUMMARY | 2022-03-22 15:52 | XMS_ITS | Encounter Summary ---
:1950 Author Organization [facility] Address [address] [place] [address] Care Team Providers Name Role Phone Unavailable Primary Care Provider Unavailable Encounter Details Date Type Department Care Team Description 12/15/2010 Hospital Encounter [facility] NEUROLOGY Kathleen Kim M.D. [address] , [facility] [address] [place] [address] (Wo rk) Social History Tobacco Use Types Packs/Day Years Used Date Smoking Tobacco: Never Assessed Alcohol Habits Answer Date Recorded How often do you have a drink containing 4 or more times a w tatitlek 10/05/2021 alcohol? How many drinks containing alcohol [...] 500 mg (three) times a tablet day. MULTIVITAMIN ORAL daily. 0 01/27/2010 021 naproxen sodium (ALEVE) Take 2 tablets by 0 10/0511/18/2017 220 mg tablet mouth every 8 (eight) hours as needed. documented as of this encounter Consult Notes Mi Kim M.D. - 12/15/2010 12:00 AM CDT [id number] CHIEF COMPLAINT/ REASON FOR VISIT Dr. Dalton asked me to see this patient for numbness and tingling in her hands and feet. HISTORY OF PRESENT ILLNESS Mrs. Simmons is a lo 60-year-old right-handed woman with a past medical history significant for lumbar spinal stenosis and carpal tunnel syndrome in 1980 who presents for evaluation of tingling paresthesias in her hands and feet present since the fall of last year. Her lumbar spine MRI has demonstrated multilevel degenerative disc disease with a severe level of central canal and bilateral lateral recess stenosis at L4-5 with some left foraminal narrowing at L5-S1. Changes are more mild at upper lumbar levels. Her symptoms of this have been restricted to low back and bilateral lower extremity pain. She has been on gabapentin 600 milligrams three times daily with good relief of her pain, but only partial relief of the paresthesias that I describe below. The paresthesias actually began when she was in physical therapy for her back pain. This then seemed to worsen in what sounds like a possible subacute manner when she started gabapentin, but a trial off of gabapentin actually resulted in increased pain. She describes tingling paresthesias of her bilateral feet extending up to her mid calf where she also has a sensation of numbness. In May 2010, she began to notice paresthesias of all of her fingertips of both hands. These paresthesias are present at rest, but are more bothersome after she has been up and walking for about 10 minutes. She denies any burning pain or electric shock sensations. She denies any weakness of her arms or legs, atrophy or fasciculations. She has had nocturnal leg cramps for some years and these are stable. Autonomic symptoms are limited to occasional lightheadedness and some chronic intermittent constipation that she attributes to her colectomy. She has never had syncope, bladder urgency, or urinary retention. Dr. Dalton did perform a cervical MRI on 06/08/2010. She has some mild disc bulging with moderate to severe left C5-6 and right C4-5 neuroforaminal narrowing. She has not had an EMG or a sweat test. She has not tried any other medications for the paresthesias. Relevant labs include a normal complete blood count, creatinine, and calcium back in May 2010. Her potassium was a little high at the time at 5 and her fasting glucose was a little high at 111, but her hemoglobin A1c was just 5.4%. Vitamin B12 was 292 with a normal folate and she has had a normal sensitive TSH. CURRENT MEDICATIONS Post-visit Medication Reconciliation 1. Gabapentin 600 milligrams three times daily, to transition today (12/15/2010) to Lyrica 2. Lyrica 75 milligrams nightly, to increase over several weeks up to 150 milligrams twice daily 3. Protonix 40 milligrams twice daily 4. Naproxen 220 milligrams, two tablets every eight hours as needed for pain 5. Multivitamin daily 6. Glucosamine/chondroitin daily 7. Calcium with vitamin D twice daily 8. Tylenol 500 milligrams as needed for pain ALLERGIES Amoxicillin causes diarrhea. Levaquin and morphine cause hives. Piroxicam causes swelling. SYSTEMS REVIEW She denies hearing loss, but has a little tinnitus associated with her reflux. She denies significant imbalance, weight loss, or night sweats. She has no cough. All other systems reviewed and negative. PAST MEDICAL/SURGICAL HISTORY 1. Subtotal colectomy, 1993 2. Hysterectomy and bilateral salpingo-oophorectomy, 1993 3. Appendectomy, 1993 4. [place] teeth extraction 5. Carpal tunnel syndrome, 1980 6. Gastroesophageal reflux disease 7. Lumbar spinal stenosis 8. Colon polyps 9. Early glaucoma 10. Left medial meniscal tear with knee pain 11. Left popliteal cyst, status post rupture FAMILY HISTORY Negative for peripheral neuropathy, multiple sclerosis, or Parkinson's disease. SOCIAL HISTORY The patient used to smoke for 30 years, but she quit in 1993. She has moderate alcohol intake, predominately socially. She has never been an alcoholic or a chronic heavy drinker. 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 She stays active with gardening and friends. VITAL SIGNS Blood pressure 126/74, respiratory rate 18, pulse 60, temperature 36.6 degreesC. PHYSICAL EXAM AREA EXAM TEXT GENERAL The patient was alert and well-groomed, with no gross deficits in orientation, attention, language, or memory. HEART There were no carotid bruits. Heartbeat was regular, without murmurs. MUSCULO She does not have high arches or hammertoes. There may be a SKELETAL trace of atrophy noted in the small muscles of her feet. NEURO Overall, a complete neurological exam was ABNORMAL, with abnormalities listed below CAPITALIZED. EYES: Optic discs and fundi were normal, without papilledema, exudate, or pallor. Her eyes have been dilated by the building admin this morning. CRANIAL NERVES: Visual acuity and glynn were normal. Pupils were equally round and reactive to light and accommodation. Extraocular movements were intact without nystagmus. Vertical saccades were rapid. Face was symmetric with intact strength and sensation. Hearing was intact to finger rub bilaterally. Tongue and palate were midline. Shoulder shrug was symmetric. POWER: Power was full throughout all four extremities, without atrophy or fasciculations. REFLEXES AND TONE: REFLEXES were normal WITH THE EXCEPTION OF -1 LEFT BICEPS AND -1 BILATERAL ANKLE JERKS. Plantar responses were flexor. Tone was normal. COORDINATION: There was no cerebellar dysmetria on qpvxxg-ne-bjin or cbqw-rwua-liwc bilaterally. AMR's were rapid and regular. MOVEMENT: There was no tremor, jerks, dystonia, or chorea. There was no dysarthria. SENSATION: SHE HAS A PINPRICK LEVEL TO 4 INCHES ABOVE HER ANKLES BILATERALLY AND 2 CENTIMETERS ABOVE HER WRISTS BILATERALLY. VIBRATION IS -1 AT THE LEFT GREAT TOE and normal elsewhere. Joint position sense is normal. Romberg is absent. Phalen's is negative after 30 seconds. Tinel's is negative over the wrists and elbows. Pulses are good at the wrists and her hands are warm. GAIT: Normal, with normal base, arm swing, and tandem. IMPRESSION/REPORT/PLAN 1. 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 Given the stocking-glove nature, I have low suspicion that the lumbar spinal stenosis is completely to blame, but it certainly could be exacerbating her symptoms. Because she already has a pinprick level above her ankles and because her hands are involved, I would like to proceed with an EMG to rule out large fiber involvement. Her time course is a little bit fast, but could still be well within the range of typical idiopathic small fiber neuropathy. I will complete her workup that was done back in May 2010 with a serum protein electrophoresis, monoclonal protein study, YAMEL, MARGARETTE, sedimentation rate, and Lyme screen. I am holding off on the paraneoplastic panel because of the expense, but should she develop any weight loss or other concerning systemic symptoms a paraneoplastic panel should be done. She is a former smoker. She is reluctant to increase her gabapentin which has only been mildly effective because of excessive fatigue. Accordingly, we will transition her to Lyrica and I gave her a schedule to reduce the gabapentin to 300 milligrams three times daily for one week before stopping. She will simultaneously start the Lyrica at 75 milligrams nightly and increase to 75 milligrams twice daily. If she tolerates this once she is off of the gabapentin but has incomplete response, she can increase then to 150 milligrams twice daily. I will see her back in two months to followup on her tests and the response to Lyrica. Total time 60 minutes, time in counseling 20 minutes. MSB/nmd Signed Mi Kim M.D. Neurology CC: Adrian Dalton M.D. Physical Medicine & Rehabilitation [address] [place] [address] Electronically Signed By: MI KIM M.D. On: 01/08/2011 06:14 PM Source: [facility] MHSDOLBEYNONRADSYS Document Id: [id number] documented in this encounter Miscellaneous Notes Telephone Encounter - Juliet Weiss, R.NGiovany - 12/15/2010 4:29 PM CDT Phone Message Document Contains Addenda Addendum by JULIET WEISS on 23 December 2010 08:40:31 CDT Faxed completed prior authorization form. Addendum by JULIET WEISS on 21 December 2010 16:55:27 CDT Still have not received PA form. Requesting it for a third time-told by insurance that they will manually fax this time to insure it is received. Addendum by JULIET WEISS on 16 December 2010 11:22:10 CDT Still have not received PA form. Contacted [employer] for them to resend form once more. [phone]. Addendum by MI KIM M.D. on 15 December 2010 18:10:07 CDT From: MI KIM M.D. To: JULIET WEISS; Sent: 12/15/2010 18:10:07 CDT Subject: RE: Phone Message You can fill out the form for me unless they need a signature. Diagnosis: neuropathy 356.9 with tingling, meds tried: Aleve: no help, tylenol: no help, gabapentin 600mg tid: no help and caused fatigue.Will not be used with any other meds. email me if you need more info. From: JULIET WEISS To: MI KIM M.D.; JULIET WEISS; Sent: 12/15/2010 16:29:12 CDT Subject: Phone Message Caller is: ( ) Patient ( ) Mother ( ) Father ( ) Spouse ( ) Daughter ( ) Son ( x ) [facility] ( ) [facility] Phys[facility]: Patient MRN #: Reason for Call: [facility] called, prior auth required for jessica. I have requested the form and they will fax it, so this is just an FYI. Steph has BS ID: [id number] # to request PA is [phone]- [phone] Message: Advice/Action: Source used: ( ) Verbalizes [...] back cell phone number ( ) Source: [facility] POWERCHART Document Id: [id number] Electronically signed by Aaron [facility] Manager [id number] at 11/07/2016 4:06 PM CDT Miscellaneous - Juliet Weiss, R.N. - 12/15/2010 11:56 AM CDT General Message Document Contains Addenda Addendum by MONSERRAT PARIS on 15 December 2010 13:14:13 CDT From: MONSERRAT PARIS To: JULIET WEISS; Sent: 12/15/2010 13:14:13 CDT Subject: RE: General Message Thanks, we will get it scheduled when she is here later this week. From: JULIET WEISS To: MONSERRAT PARIS; JULIET WEISS; Sent: 12/15/2010 11:56:14 CDT Subject: General Message Dr. Kim would like for Steph to have an EMG with [facility]. Indication: Tingling/numbness, bilateral LE, rule out PN. Steph is scheduled to see Dr. Dalton on . She can be reached at [phone]. Thank you. Source: [facility] POWERCHART Document Id: [id number] Electronically signed by Aaron [facility] Manager [id number] at 11/07/2016 4:06 PM CDT Miscellaneous - Juliet Weiss, RGiovanyNGiovany - 12/15/2010 10:32 AM CDT Adult [employer] Intake/History Adult [employer] Intake/History Entered On: 12/15/2010 10:35 CDT Performed On: 12/15/2010 10:32 CDT by JULIET WEISS Intake Chief Complaint: Consult- Numbness in feet and hands. Ambulatory Intake Additional Information: Referred by Temperature Core: 36.6C(Converted to: 97.9DegF) Peripheral Pulse Rate: 60/min Respiratory Rate: 18/min Systolic Blood Pressure: 126mmHg Diastolic Blood Pressure: 74mmHg NIBP Mean: 91mmHg BP Location: Left upper extremity Actual Weight: 86.500kg(Converted to: 190lb 11oz) Dosing Weight Clinic: 86.50kg JULIET WEISS - 12/15/2010 10:32 CDT Subjective Pain Symptoms: No JULIET WEISS - 12/15/2010 10:32 CDT Dependent Habits Tobacco Use/Currently Using: No JULIET WEISS - 12/15/2010 10:32 CDT Caffeine Use Grid Caffeine Use: Current Type: Chocolate, Soft drinks, Tea Frequency: Occasionally JULIET WEISS - 12/15/2010 10:32 CDT Allergy Allergies (Active) amoxicillin Estimated Onset Date: Unspecified ; Reactions: diarrhea ; Created By: SUNSHINE ANGLIN; Reaction Status: Active ; Category: Drug ; Substance: amoxicillin ; Type: Allergy ; Updated By: SUNSHINE ANGLIN; Reviewed Date: 01/27/2010 10:57 CDT Levaquin Estimated Onset Date: Unspecified ; Reactions: hives ; Created By: SUNSHINE ANGLIN; Reaction Status: Active ; Category: Drug ; Substance: Levaquin ; Type: Allergy ; Updated By: SUNSHINE ANGLIN; Reviewed Date: 01/27/2010 10:57 CDT morphine Estimated Onset Date: Unspecified ; Reactions: hives ; Created By: SUNSHINE ANGLIN; Reaction Status: Active ; Category: Drug ; Substance: morphine ; Type: Allergy ; Updated By: SUNSHINE ANGLIN; Reviewed Date: 01/27/2010 10:57 CDT piroxicam Estimated Onset Date: Unspecified ; Reactions: swollen hands and feet, ankles ; Created By: SUNSHINE ANGLIN; Reaction Status: Active ; Category: Drug ; Substance: piroxicam ; Type: Allergy; Updated By: SUNSHINE ANGLIN; Reviewed Date: 01/27/2010 10:57 CDT [facility] Document Id: [id number] documented in this encounter Plan of Treatment Upcoming Encounters Date Type Specialty Care Team Description 03/25/2022 Office Visit Family Medicine Leslie Gonzalez M.D. [address] [place] [address] [phone] (Wo rk) documented as of this encounter Visit Diagnoses Not on filedocumented in this encounter
--- OUTSIDE RECORDS SUMMARY | 2022-03-22 15:52 | XMS_ITS | Encounter Summary ---
:1950 Author Organization [facility] Address [address] [place] [address] Care Team Providers Name Role Phone Unavailable Primary Care Provider Unavailable Encounter Details Date Type Department Care Team Description 05/28/2010 Hospital Encounter HX [facility] Aung Dalton M.D. [address] [place] [address], [address] [place] [address] (Wo rk) Social History Tobacco Use Types Packs/Day Years Used Date Smoking Tobacco: Never Assessed Alcohol Habits Answer Date Recorded How often do you have a drink containing 4 or more times a w [place] 10/05/2021 alcohol? How many drinks containing alcohol [...] Visit Family Medicine Leslie Gonzalez M.D. [address] [place] [address] [phone] (Wo rk) documented as of this encounter Visit Diagnoses Not on filedocumented in this encounter
--- OUTSIDE RECORDS SUMMARY | 2022-03-22 15:52 | XMS_ITS | Encounter Summary ---
:1950 Author Organization [facility] Address [address] [place] [address] Care Team Providers Name Role Phone Unavailable Primary Care Provider Unavailable Encounter Details Date Type Department Care Team Description 12/18/2010 Hospital Encounter HX [facility] Ken Dalton M.D. [address] [place] [address], [address] [place], [place] [phone] (Wo rk) Social History Tobacco Use Types Packs/Day Years Used Date Smoking Tobacco: Never Assessed Alcohol Habits Answer Date Recorded How often do you have a drink containing 4 or more times a w [place] 10/05/2021 alcohol? How many drinks containing alcohol [...] 1 to 4 times per year 07/2021 yarsani services? Do you belong to any clubs [...] encounter Progress Notes Charito Dalton M.D. - 12/18/2010 12:00 AM CDT [id number] CHIEF COMPLAINT/REASON FOR VISIT Follow-up left knee pain and bilateral hand and feet paresthesias. HISTORY OF PRESENT ILLNESS Ms. Simmons returns today in followup. On December 03 I performed an ultrasound guided popliteal cyst aspiration of the left knee intra-articular steroid injection. She reports her left knee pain is doing very well. She is now able to walk two to three miles daily without discomfort. She denies any catching, locking, or give-way in the knee. She is not having any pain other than when she kneels on the knee she has pain in the anterior portion of the knee. She is no longer having any medial knee pain is no longer having any posterior knee pain. A few days after the procedure, she did feel a sharp pain radiating into her calf and then had noticed that there is increased fluid her calf for a few days then that resolved. She has not been taking any medications for the knee pain at this time. She does that she has been taking it easy, other than the walking. She does not want the pain to return. She saw Jef Palmer, neurologist on December 15 and I very much appreciate Dr. Fuchs's input with respect to Ms. Fregoso. She is going to switch her to Lyrica and is currently going through the prior authorization process. She has also initiated evaluation for her paresthesias and has recommended an EMG, as part of that evaluation. PHYSICAL EXAM GENERAL: Pleasant 60-year-old female in no acute distress. NEURO: Oriented to person, place and time. Appropriate mood and affect. Gait reveals normal emmanuel and stride. Toe and heel walking are normal. Strength: All major muscle groups of the bilateral lower extremities have normal and symmetric muscle strength, bulk and tone. MUSCULOSKELETAL: Knee. There is no effusion present in the left knee. There is no tenderness today over the medial lateral joint line. There is no tenderness over the medial lateral peripatellar facet regions. Negative bounce home. Negative Cyrus's, and negative patellar grind.. RANGE OF MOTION: Knee range of motion from 0 to 135 degrees. There is trace edema in the bilateral lower extremities more pronounced on the left. There is no calf tenderness, warmth, or erythema. IMPRESSION/REPORT/PLAN 1. Left knee pain 2. Left posterior medial meniscal and popliteal cyst 4. Lumbar spinal stenosis 5. Bilateral hand and feet paresthesias Ms. Simmons has made excellent progress with respect to her left knee pain. We had discussed if she were not improved today we would likely have her meet with an orthopedic surgeon with her known posteromedial meniscal tear. However, she is doing very well in participating in all the activities that she wants to do at this time, other than squatting which she has been leery to try to this point. She is not having any mechanical symptoms. She is also doing well with respect to her spinal stenosis and she is able to walk for two to three miles without a significant amount of discomfort in the lower extremities. PLAN 1. We will schedule her for the EMG as recommended by Dr. Fuchs. 2. Ms. Simmons will transition from her Gabapentin to Lyrica, once she has approval from her insurance company to do this. 3. I will plan on being in contact with her after the EMG to discuss the results with her. She knows to be contact with me prior to that time if she notes any worsening or worrisome symptoms which we went over in detail today. Total time 25 minutes. Counseling time 15 minutes. JMP/kmk Signed Charito Dalton M.D. Physical Medicine & Rehabilitation Electronically Signed By: CHARITO DALTON MD On: 12/29/2010 08:20 AM Modified by and Electronically Signed by: CHARITO DALTON MD On: 12/29/2010 08:20 AM Source: [facility] MHSDOLBEYNONRADSYS Document Id: [id number] documented in this encounter Miscellaneous Notes Miscellaneous - Charito Dalton M.D. - 12/18/2010 9:00 AM CDT [place] [address] Visit Information Name: STEPH SIMMONS Current Date: 12/18/2010 09:00:30 Primary Care Provider: PAWEL SERNA MD Your Medications Here is a list of your medications. It is important to take your medications as directed. Use a pillbox or chart to help remind you to take your medications. Please let your doctor or nurse know if you have problems taking your medications. Medication/Strength Dose Route Frequency Indications/Special Instructions/Comments pregabalin (pregabalin 150 mg oral capsule) 150 [...] and stroke. Vaccine: Flu every 1 year 12/18/2010 Immunization to help prevent you from getting the flu strain expected to be a problem for that year's flu season. Vaccine: Tetanus every 10 years 01/27/2010 01/25/2020 Immunization to help prevent you from getting the serious disease Tetanus (Lockjaw). Your Upcoming Appointments Date Time Location Reason Provider 02/23/2011 11:00 [facility] Neurology f/u meds for neuropathy Jessenia Fuchs MD Your Goals/Additional instructions: Source: [facility] POWERCHART Document Id: [id number] Electronically signed by Aaron [facility] Kick Press Operator [id number] at 11/07/2016 4:06 PM CDT Miscellaneous - Charito Dalton M.D. - 12/18/2010 9:00 AM CDT [place] [address] Visit Information Name: STEPH SIMMONS Current Date: 12/18/2010 09:00:28 Primary Care Provider: PAWEL SERNA MD ROSALBASTEPH has been given the following list of medications: Your Medications It is important to take your medications as directed. Use a pill box or chart to help remind you to take your medications. Please let your doctor or nurse know if you have problems taking your medications. Medication/Strength Dose Route Frequency Indications/Special Instructions/Comments pregabalin (pregabalin 150 mg oral capsule) 150 [...] (multivitamin) once a day Additional Information: Source: [facility] POWERCHART Document Id: [id number] Electronically signed by Aaron, [facility] Kick Press Operator [id number] at 11/07/2016 4:06 PM CDT Miscellaneous - Monserrat Paris P.A.-C. - 12/18/2010 8:33 AM CDT Adult Money Order Clerk Intake/History Adult Money Order Clerk Intake/History Entered On: 12/18/2010 8:33 CDT Performed On: 12/18/2010 8:33 CDT by MONSERRAT PARIS Intake Systolic Blood Pressure: 104mmHg Diastolic Blood Pressure: 60mmHg NIBP Mean: 75mmHg BP Location: Left upper extremity Actual Weight: 85.600kg(Converted to: 188lb 11oz) Weight Source: Standing scale Dosing Weight Clinic: 85.60kg MONSERRAT PARIS - 12/18/2010 8:33 CDT Subjective Pain Symptoms: No MONSERRAT PARIS - 12/18/2010 8:33 CDT Dependent Habits Tobacco Use/Currently Using: No MONSERRAT PARIS - 12/18/2010 8:33 CDT Caffeine Use Grid Caffeine Use: Current Type: Chocolate, Soft drinks, Tea Frequency: Occasionally MONSERRAT PARIS - 12/18/2010 8:33 CDT Allergy Allergies (Active) amoxicillin Estimated Onset Date: Unspecified ; Reactions: diarrhea ; Created By: SUNSHINE ANGLIN; Reaction Status: Active ; Category: Drug ; Substance: amoxicillin ; Type: Allergy ; Updated By: SUNSHINE ANGLIN; Reviewed Date: 12/15/2010 10:35 CDT Levaquin Estimated Onset Date: Unspecified ; Reactions: hives ; Created By: SUNSHINE ANGLIN; Reaction Status: Active ; Category: Drug ; Substance: Levaquin ; Type: Allergy ; Updated By: SUNSHINE ANGLIN; Reviewed Date: 12/15/2010 10:35 CDT morphine Estimated Onset Date: Unspecified ; Reactions: hives ; Created By: SUNSHINE ANGLIN; Reaction Status: Active ; Category: Drug ; Substance: morphine ; Type: Allergy ; Updated By: SUNSHINE ANGLIN; Reviewed Date: 12/15/2010 10:35 CDT piroxicam Estimated Onset Date: Unspecified ; Reactions: swollen hands and feet, ankles ; Created By: SUNSHINE ANGLIN; Reaction Status: Active ; Category: Drug ; Substance: piroxicam ; Type: Allergy; Updated By: SUNSHINE ANGLIN; Reviewed Date: 12/15/2010 10:35 CDT Source: [facility] Cardio control Document Id: [id number] CDT!18 documented in this encounter Plan of Treatment Upcoming Encounters Date Type Specialty Care Team Description 03/25/2022 Office Visit Family Medicine Leslie Gonzalez M.D. [address] [place] [address] [phone] (Wo rk) documented as of this encounter Visit Diagnoses Not on filedocumented in this encounter
--- OUTSIDE RECORDS SUMMARY | 2022-03-22 15:52 | XMS_ITS | Encounter Summary ---
:1950 Author Organization [facility] Address [address] [place] [address] Care Team Providers Name Role Phone Unavailable Primary Care Provider Unavailable Encounter Details Date Type Department Care Team Description 04/21/2010 Hospital Encounter HX [facility] Ken Dalton M.D. [address] [place] [address], [address] [place], [place] [phone] (Wo rk) Social History Tobacco Use Types Packs/Day Years Used Date Smoking Tobacco: Never Assessed Alcohol Habits Answer Date Recorded How often do you have a drink containing 4 or more times a w [place] 10/05/2021 alcohol? How many drinks containing alcohol [...] or relatives? How often do you attend denominational or 1 to 4 times per year 07/2021 sabianism services? Do you belong to any clubs or Yes 10/05/2021 organizations such as denominational groups, unions, fraternal or athletic groups, or [...] 01/27/2010 021 documented as of this encounter Progress Notes Charito Dalton M.D. - 04/21/2010 12:00 AM CST [id number] CHIEF COMPLAINT/ REASON FOR VISIT Follow up lumbar spinal stenosis. HISTORY OF PRESENT ILLNESS Ms. Simmons returns today in followup. Since I last saw her, she has been working with Ken Williamson, physical therapist at [facility]. She has also been using Gabapentin 600 milligrams three times daily. She reports that she found the therapy to be helpful. She is doing her stretching exercises on a daily basis and does them before she starts her day as they seem to help her quite a bit. She is also performing strengthening exercises 2-3 times per week on her own. She has finished her formal physical therapy as of last week. She has been tolerating Gabapentin well without any side effects. She reports that overall her symptoms have improved somewhat although they are still present and her pain can still be as high as a 6/10 at times. She describes this as an occasional discomfort in her low back but the majority of her pain is located the bilateral gluteal regions then radiates in the posterior thighs, posterolateral leg and occasionally into the dorsum of the feet. She can also experience tingling and numbness in the same distribution. This pain is worse with any type of standing or walking. It is also worse when she is lying supine at night. She does have pain when she rolls over from fgwt-bo-dory. She denies any weakness in her lower extremities. She denies any changes in her bowel or bladder habits or fevers or chills. The pain improves with sitting as well as bending forward at the waist which she will do when she is walking. In addition to the Gabapentin, she is using extra-strength Tylenol 2 tablets three times daily as well as Aleve 1 tablet twice daily. PHYSICAL EXAM GENERAL: Pleasant 59-year-old female in no acute distress. NEURO: Oriented to person, place and time. Appropriate mood and affect. GAIT: Gait reveals normal emmanuel and stride. Toe and heel walking are normal. Strength: All major muscle groups of the bilateral lower extremities have normal and symmetric muscle strength, bulk and tone. Reflexes: Bilateral lower extremity muscle stretch reflexes are physiologic and symmetric. Plantar responses downgoing bilaterally. Sensation: Normal pinprick and light touch sensation through upper and lower extremities. Straight leg raise causes pain in the posterior thighs at approximately 55 degrees bilaterally. MUSCULOSKELETAL: SPINE: Preserved range of motion of the lumbar spine. There is mild tenderness to palpation over lower lumbar paraspinals bilaterally. IMPRESSION/REPORT/PLAN 1. Low back and bilateral lower extremity pain 2. MRI evidence for severe central canal stenosis at L4-L5. 3. Lumbar spondylosis Ms. Simmons continues to have a normal neurologic examination without evidence of a focal neurologic deficit. 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 We discussed various options for management and came up with the following plan. PLAN 1. I discussed with Ms. Simmons the possibility of meeting with a spine surgeon. At this point, she is not interested in that as she is going to be leaving for [place] at the beginning of June and will be gone for 3 months and does not want to entertain the possibility of surgery until she returns. This is reasonable based on her neurologic examination. 2. We discussed the possibility of an epidural corticosteroid injection and Ms. Simmons would like to proceed with this. We are going to schedule her for an L5-S1 interlaminar epidural corticosteroid injection based on her bilateral symptoms. 3. Ms. Simmons will continue using her Gabapentin 600 milligrams three times daily as well as her extra-strength Tylenol and Aleve for pain relief. 4. She will continue the exercises that she was shown on her own in physical therapy which she has found be very helpful to this point. 5. I will plan on being in contact with Ms. Simmons 2 weeks following the epidural corticosteroid injection and she knows to be in contact with me sooner than that time if she notes any worsening or worrisome symptoms which we over in detail today. She voiced agreement and understanding with this plan. JMP/cmt Signed Charito Dalton M.D. Physical Medicine & Rehabilitation Electronically Signed By:CHARITO DALTON MD On 04/25/2010 06:27 PM Modified by:CHARITO DALTON MD On 04/25/2010 06:27 PM Source: [facility] MHSDOLBEYNONRADSYS Document Id: [id number] ADVICE documented in this encounter Miscellaneous Notes Miscellaneous - Mnoserrat Paris P.A.-C. - 04/21/2010 9:20 AM CST Adult Director Medicare Sales Intake/History Adult Director Medicare Sales Intake/History Entered On: 04/21/2010 9:20 RN ADVICE Performed On: 04/21/2010 9:20 RN ADVICE by MONSERRAT PARIS Intake Systolic Blood Pressure: 124mmHg Diastolic Blood Pressure: 62mmHg NIBP Mean: 83mmHg BP Location: Right upper extremity Actual Weight: 88.000kg Actual Weight Conversion to Pounds: 193.600lb Weight Source: Standing scale Dosing Weight Clinic: 88.00kg MONSERRAT PARIS - 04/21/2010 9:20 RN ADVICE Subjective Pain Symptoms: No MONSERRAT PARIS - 04/21/2010 9:20 RN ADVICE Dependent Habits Tobacco Use/Currently Using: No MONSERRAT PARIS - 04/21/2010 9:20 RN ADVICE Caffeine Use Grid Caffeine Use: Current Type: Chocolate, Soft drinks, Tea Frequency: Occasionally MONSERRAT PARIS - 04/21/2010 9:20 RN ADVICE Allergies Allergies (Active) amoxicillin Estimated Onset Date: [...] ANGLIN; Reviewed Date: 01/27/2010 10:57 CDT [facility] Document Id: [id number] RN ADVICE!19 ADVICE documented in this encounter Plan of Treatment Upcoming Encounters Date Type Specialty Care Team Description 03/25/2022 Office Visit Family Medicine Leslie Gonzalez M.D. [address] [place] [phone] (Wo rk) documented as of this encounter Visit Diagnoses Not on filedocumented in this encounter
--- OUTSIDE RECORDS SUMMARY | 2022-03-22 15:52 | XMS_ITS | Encounter Summary ---
:1950 Author Organization [facility] Address [address] [place] [address] Care Team Providers Name Role Phone Unavailable Primary Care Provider Unavailable Encounter Details Date Type Department Care Team Description 12/03/2010 Hospital Encounter HX [facility] Ken Dalton M.D. [address] [place] [address], [address] [place], [place] [phone] (Wo rk) Social History Tobacco Use Types Packs/Day Years Used Date Smoking Tobacco: Never Assessed Alcohol Habits Answer Date Recorded How often do you have a drink containing 4 or more times a w kotlik 10/05/2021 alcohol? How many drinks containing alcohol [...] encounter Progress Notes Charito Dalton M.D. - 12/03/2010 12:00 AM CDT [id number] Document Contains Addenda CHIEF COMPLAINT/ REASON FOR VISIT Follow-up left knee pain. HISTORY OF PRESENT ILLNESS Ms. Simmons returns today in followup. She had a MRI performed of her left knee on November 25. I reviewed the findings in detail with her there is tearing in the posterior horn of the medial meniscus with mild to moderate medial extrusion in the medial meniscal body. There is mild to moderate thinning of the articulate cartilage in the medial compartment. There is a small popliteal cyst with internal debris in findings of recent rupture fluid dissecting both superiorly and inferiorly. There is a greater than 2 cm cystic process present about the posterior aspect of the distal femur may relate to the superior extension of the popliteal cyst or possibly a ganglion. Ms. Simmons reports that her symptoms are basically unchanged since I saw her just previous to the MRI. She denies any mechanical symptoms such as catching, locking. She has noted continued pain in the posterior knee with squatting but does actually feel that is slightly better. She has not noticed any warmth, erythema in the calf. She can occasionally have pain in the calf if she is squatting. PHYSICAL EXAM GENERAL: Pleasant 60 year old female in no acute distress. Knee range of motion from 0 to 135 degrees bilaterally. There is no effusion present in the left knee. There is no warmth, erythema about the left knee. There is a hematoma in the posterior aspect of the left knee it may be related to her previous popliteal cyst rupture. There is again mild popliteal fossa tenderness. There is posteromedial joint line tenderness. Negative bounce home. Cyrus's causes pain in the medial knee without a palpable click. There is calf tenderness without any warmth or erythema. IMPRESSION/REPORT/PLAN 1. Left knee pain 2. Left posterior medial meniscal tear 3. Left popliteal cyst Ms. Simmons's symptoms certainly could be consistent with a left posterior horn medial meniscal tear. Her posterior knee pain is likely related to the popliteal cyst and with her hematoma she likely recently had a rupture which would be consistent with her MRI findings. PLAN 1. With Ms. Simmons's calf tenderness we are going to proceed with a ultrasound of the left lower extremity to rule out a DVT. 2. I have discussed with Ms. Simmons the possibility of meeting with an orthopedic surgeon to consider operative management for her meniscal tear. She would like to defer that at the current time which is reasonable as she is not having any mechanical symptoms. We did discuss the possibility of aspirating the popliteal cyst and proceeding with a left knee intra-articular corticosteroid injection to see if that could help her symptoms and she would like to proceed with this. However, we are going to defer that until after the ultrasound is completed of the left lower extremity to exclude a DVT. If that is negative for a DVT ,we will proceed with the procedure as described. 2. I will plan on seeing Ms. Simmons after the ultrasound of the left lower extremity. She voiced agreement and understanding with this plan. ADDENDUM: Ms. Simmons had an ultrasound of her left lower extremity. This is negative for a deep venous thrombosis. It did show a 3.4 x 2.7 cm complicated cyst involving the left popliteal fossa consistent with a complicated Campa's cyst. AILIN/madonna Signed Charito Dalton M.D. Physical Medicine & Rehabilitation Electronically Signed By: CHARITO DALTON MD On: 12/17/2010 06:02 PM Modified by and Electronically Signed by: CHARITO DALTON MD On: 12/17/2010 06:02 PM Source: [facility] MHSDOLBEYNONRADSYS Document Id: [id number] Charito Dalton M.D. - 12/03/2010 12:00 AM CDT [id number] DIAGNOSIS 1. Left knee pain. 2. Left medial meniscal tear. 3. Left popliteal cyst. HISTORY/INDICATION Please see my clinical note dated 12-03-2010 for more details of the HPI. PROCEDURE PERFORMED 1. Ultrasound guided left popliteal cyst aspiration. 2. Ultrasound guided left knee intra-articular corticosteroid injection (ultrasound was used for educational purposes only.) PATIENT EDUCATION Ready to learn. No apparent [...] PROCEDURE 1. Ultrasound guided left popliteal cyst aspiration. Prior to the start of the procedure, a pause was performed to confirm the patient's name, affected area and proposed procedure. The patient was placed in a prone position. An optimal ultrasound image of the left popliteal fossa was obtained with a 12-5 linear transducer. An anechoic area was identified between the semimembranosus and medial gastrocnemius This measured 3.13 cm in the medial to lateral dimension and 0.82 cm in the anterior to posterior dimension and 3.9 cm in the inferior to superior dimension. There is noted to be a significant amount of internal debris within this anechoic area. There was no internal flow with Doppler imaging. This anechoic area was easily compressible. There was fluid tracking both superiorly and inferiorly from the cyst. A pre-procedure image was saved to the [...] into the area of maximal fluid collection. A total or 3 cc of typical appearing synovial fluid was aspirated. There seemed to be an additional amount of fluid superior to the original entry site of the needle and it was determined to attempt to aspirate that. A separate 27 gauge 1 1/4 inch needle then was then utilized to deliver 2 cc of 1% lidocaine and following this real time ultrasound was used to guide a 19 gauge 2 inch need into this fluid collection and 1 cc of typical appearing synovial fluid was aspirated. 2. Ultrasound guided left knee intra-articular corticosteroid injection (ultrasound was used for education purposes only.) Prior to the start of the procedure, a pause was performed to confirm the patient's name, affected area and proposed procedure. The patient was placed in a supine position. An optimal ultrasound image of the left knee was obtained with a 12-5 linear transducer. A pre-procedure image was saved to the hard drive. Following this, the area was prepped with a ChloraPrep scrub, then re-examined using the same transducer, sterile ultrasound transducer cover and sterile ultrasound transducer gel. Real time ultrasound was utilized to guide a 25 gauge 2 inch needle into the lateral suprapatellar recess. After visualization of the tip in the target area and negative aspiration for blood, a mixture of 3 cc's of 1% Lidocaine and 1 cc of 40 mg. per cc of Depo-Medrol was delivered to the target area while [...] contact with us if she has any difficulties following today's procedure. Otherwise I will plan on seeing her in follow up in two weeks. She voiced agreement and understanding with this plan AILIN/madonna Signed Charito Dalton M.D. Physical Medicine & Rehabilitation Electronically Signed By: CHARITO DALTON MD On: 12/17/2010 06:00 PM Modified by and Electronically Signed by: CHARITO DALTON MD On: 12/17/2010 06:00 PM Source: [facility] MHSDOLBEYNONRADSYS Document Id: [id number] documented in this encounter Miscellaneous Notes Miscellaneous - Charito Dalton M.D. - 12/03/2010 4:22 PM CDT Ambulatory Patient Summary [address] [address] Visit Information Name: STEPH SIMMONS Current Date: 12/03/2010 16:22:25 Primary Care Provider: PAWEL SERNA MD Your Medications Here is a list of your medications. It is important to take your medications as directed. Use a pillbox or chart to help remind you to take your medications. Please let your doctor or nurse know if you have problems taking your medications. Medication/Strength Dose Route Frequency Indications/Special Instructions/Comments gabapentin (gabapentin 600 mg oral tablet) 600 mg Oral three times a day glucosamine-chondroitin (glucosamine-chondroitin) acetaminophen (Tylenol 500 mg oral tablet) Oral two times a day naproxen (Aleve 220 mg [...] Degenerative disc disease* Active Arthritis, unspecified* Active Your Recommendations We want to make [...] and stroke. Vaccine: Flu every 1 year 12/03/2010 Immunization to help prevent you from getting the flu strain expected to be a problem for that year's flu season. Vaccine: Tetanus every 10 years 01/27/2010 01/25/2020 Immunization to help prevent you from getting the serious disease Tetanus (Lockjaw). Your Upcoming Appointments Date Time Location Reason Provider 12/15/2010 10:30 [facility] Bilateral hand and feet paresthesias. I am treating Pt. for lumbar spinal stenosis. Jessenia Fuchs MD 12/18/2010 08:30 [facility] PM&R rc Charito Dalton MD Your Goals/Additional instructions: Source: [facility] POWERCHART Document Id: [id number] Electronically signed by Conversion, [facility] Chronometer Repairer [id number] at 11/07/2016 10:23 PM CDT Miscellaneous - Charito Dalton M.D. - 12/03/2010 4:22 PM CDT [place] [address] Visit Information Name: STEHP SIMMONS Current Date: 12/03/2010 16:22:24 Primary Care Provider: PAWEL SERNA MD STEPH SIMMONS has been given the following list of medications: Your Medications It is important to take your medications as directed. Use a pill box or chart to help remind you to take your medications. Please let your doctor or nurse know if you have problems taking your medications. Medication/Strength Dose Route Frequency Indications/Special Instructions/Comments gabapentin (gabapentin 600 mg oral tablet) 600 mg Oral three times a day glucosamine-chondroitin (glucosamine-chondroitin) acetaminophen (Tylenol 500 mg oral tablet) Oral two times a day naproxen (Aleve 220 mg oral tablet) 2 tab(s) Oral every 8 hours as needed for pain pantoprazole (Protonix) 40 mg Oral two times a day calcium-vitamin D (Calcium 600+D) Oral two times a day multivitamin (multivitamin) once a day Additional Information: Source: [facility] POWERCHART Document Id: [id number] Electronically signed by Aaron, [facility] Chronometer Repairer [id number] at 11/07/2016 10:23 PM CDT Miscellaneous - Monserrat Paris P.A.-C. 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 Registered Clinical Dietitian Intake/History Entered On: 12/03/2010 11:22 CDT Performed On: 12/03/2010 11:22 CDT by MONSERRAT PARIS Intake Systolic Blood Pressure: 118mmHg Diastolic Blood Pressure: 60mmHg NIBP Mean: 79mmHg BP Location: Right upper extremity Actual Weight: 86.200kg(Converted to: 190lb 1oz) Weight Source: Standing scale Dosing Weight Clinic: 86.20kg MONSERRAT PARIS - 12/03/2010 11:22 CDT Subjective Pain Symptoms: MONSERRAT Enrique - 12/03/2010 11:22 CDT Dependent Habits Tobacco Use/Currently Using: No MONSERRAT PARIS - 12/03/2010 11:22 CDT Caffeine Use Grid Caffeine Use: Current Type: Chocolate, Soft drinks, Tea Frequency: Occasionally MONSERRAT PARIS - 12/03/2010 11:22 CDT Allergy Allergies (Active) amoxicillin Estimated Onset Date: Unspecified ; Reactions: diarrhea ; Created By: SUNSHINE ANGLIN; Reaction Status: Active ; Category: Drug ; Substance: amoxicillin ; Type: Allergy ; Updated By: SUNSHIEN ANGLIN; Reviewed Date: 01/27/2010 10:57 CDT Levaquin [...] ANGLIN; Reviewed Date: 01/27/2010 10:57 CDT [facility] Document Id: [id number] CDT!18 documented in this encounter Plan of Treatment Upcoming Encounters Date Type Specialty Care Team Description 03/25/2022 Office Visit Family Medicine Leslie Gonzalez M.D. [address] [place] [phone] (Wo rk) documented as of this encounter Visit Diagnoses Not on filedocumented in this encounter
--- OUTSIDE RECORDS SUMMARY | 2022-03-22 15:52 | XMS_ITS | Encounter Summary ---
:1950 Author Organization [facility] Address [address] [place] [address] Care Team Providers Name Role Phone Unavailable Primary Care Provider Unavailable Encounter Details Date Type Department Care Team Description 12/03/2010 Hospital Encounter [facility]X [facility] Aung Ford M.D. [address] [place] [address], [address] [place] [address] (Wo rk) Social History Tobacco Use Types Packs/Day Years Used Date Smoking Tobacco: Never Assessed Alcohol Habits Answer Date Recorded How often do you have a drink containing 4 or more times a w ewiiaapaayp 10/05/2021 alcohol? How many drinks containing alcohol [...] Visit Family Medicine Leslie Gonzalez M.D. [address] [place] [phone] (Wo rk) documented as of this encounter Procedures Procedure Name Priority Date/Time Associated Diagnosis Comme nts US LOWER EXTREMITY Routine 12/03/2010 1:15 PM Res ults for this VEINS LEFT CDT procedure are i n the results section. documented in this encounter Results US Lower Extremity Veins Left (12/03/2010 1:15 PM CDT) Anatomical Region Laterality Modality Lower Extremity Left Ultrasound Specimen (Source) Anatomical Collection Method Collection Time Re ceived Time Location / / Volume Laterality 12/03/2010 1:15 PM CDT Impressions 12/03/2010 1:49 PM CDT ?? 1. No evidence of DVT. 2. Complicated Campa's cyst. Narrative 12/03/2010 1:49 PM CDT Duplex ultrasonography and color Doppler flow imaging of the left lower extremity deep venous system was p erformed. ?? There is normal compressibility, venous phase flow and augmentation identified throughout the common and sup erficial femoral veins as well as the popliteal vein and visualized tiago f veins, with no evidence of echogenic thrombus to suggest DVT. ? There is a 3.4 x 2.7 cm complicated cyst involving the left popliteal fossa, consistent with a complicated Philippe er's cyst. ?? Procedure Note Immanuel Solorzano M.D. / Provider, Jed montgomery M.D. - 10/28/2016 Duplex ultrasonography and color Doppler flow imaging of the left lower extremity deep venous system was p erformed. There is normal compressibility, venous phase flow and augmentation identified throughout the common and sup erficial femoral veins as well as the popliteal vein and visualized tiago f veins, with no evidence of echogenic thrombus to suggest DVT. There is a 3.4 x 2.7 cm complicated cyst involving the left popliteal fossa, consistent with a complicated Philippe er's cyst. IMPRESSION: 1. No evidence of DVT. 2. Complicated Campa's cyst. Sarkis Pop Jr. RTia.M.S. IMG US PROCEDURES documented in this encounter Visit Diagnoses Not on filedocumented in this encounter
--- OUTSIDE RECORDS SUMMARY | 2022-03-22 15:52 | XMS_ITS | Encounter Summary ---
:1950 Author Organization [facility] Address [address] [place] [address] Care Team Providers Name Role Phone Unavailable Primary Care Provider Unavailable Encounter Details Date Type Department Care Team Description 01/27/2010 Hospital Encounter HX [facility] Rolanda [...] 1 to 4 times per year 07/2021 yazidi services? Do you belong to any clubs [...] encounter Progress Notes Pawel Serna M.D. - 01/27/2010 12:00 AM CDT [id number] IMPRESSION/REPORT/PLAN 1. Low back strain rule out other pathology. Lumbosacral spine x-rays. Robaxin 750 mg tablets 2 t.i.d. Continue with the Aleve 1 b.i.d. could take Tylenol 500 to 1000 mg q.i.d. for any additional pain. Read over the [employer] essay on low back pain and recheck in 2 weeks return sooner PRN. CHIEF COMPLAINT/REASON FOR VISIT Low back pain for 3 weeks HISTORY OF PRESENT ILLNESS This 59-year-old female patient has had low back pain for the last week. She had similar problem several years ago that was felt to be related to a pinched nerve. The pain is fine if she rests but if she moves it hurts. The pain goes down both legs back of the knees. She has had no weakness or numbness. She has been stretching and icing the area. She was given [employer] essay on low back pain. She can stand on her toes rock back on her heels. She will be getting x-rays of the low back since it is tender in the mid lumbar area and right lumbosacral area. She has had no trouble passing urine holding her urine or bowels. She has had no noted injury but she does work in her garden. EMR record reviewed and updated. CURRENT MEDICATIONS See depart summary from today [...] See EMR PHYSICAL EXAM AREA EXAM TEXT SPINE Examination reveals tenderness in the lumbar area mid section. Also having pain lumbosacral area. Straight leg raising rotation of hips negative. She can stand on her toes rock back on her heels. There is no numbness and no weakness noted. SFO/clf Signed Pawel Serna M.D. Family Medicine Electronically Signed By:PAWEL SERNA MD On 01/29/2010 08:26 AM Source: [facility] MHSDOLBEYNONRADSYS Document Id: [id number] documented in this encounter Miscellaneous Notes Miscellaneous - Pawel Serna M.D. - 01/27/2010 12:08 PM CDT Reminder Msg Document Contains Addenda Addendum by MAYRA DANG on 27 January 2010 15:29:52 CDT Results mailed to patient From: PAWEL SERNA MD To: MAYRA DANG Sent: 01/27/2010 12:08:40 CDT ! Show up: 01/27/2010 12:07:00 CDT Subject: Reminder Msg Actions: Notify patient of results Due Date/Time: 01/27/2010 12:07:00 CDT Source: [facility] POWERCHART Document Id: [id number] Electronically signed by Aaron [facility] [employer] [id number] at 11/08/2016 2:53 AM CDT Miscellaneous - Pawel Serna M.D. - 01/27/2010 11:30 AM CDT Ambulatory Depart Summary [address] [address] Visit Information Name: MAYRA SIMMONS Current Date: 01/27/2010 11:30:59 Primary Care Provider: PAWEL SERNA MD [id number] MAYRA SIMMONS has been given the following list of medications: Your Medications It is important to take your medications as directed. Use a pill box or chart to help remind you to take your medications. Please let your doctor or nurse know if you have problems taking your medications. Medication/Strength Dose Route Frequency Indications/Special Instructions/Comments methocarbamol (Robaxin-750 oral tablet) 1,500 mg Oral three times a day calcium-vitamin D (Calcium 600+D) Oral two times a day multivitamin (multivitamin) once a day pantoprazole (Protonix) 40 mg Oral two times a day Additional Information: Yes - Current list of reconciled medications is provided and explained to the patient and/or family, guardian/caregiver. 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 Intake/History Entered On: 01/27/2010 11:35 CDT Performed On: 01/27/2010 10:59 CDT by PAWEL SERNA MD Intake Chief Complaint: complaining of low back pain Peripheral Pulse Rate: 60bpm Heart Rhythm: Regular Systolic Blood Pressure: 128mmHg Diastolic Blood Pressure: 64mmHg NIBP Mean: 85mmHg BP Location: Left upper extremity Actual Weight: 86.500kg(Converted to: 190.700lb) Dosing Weight Clinic: 86.50kg MAYAR DANG - 01/27/2010 10:59 CDT Subjective Pain Symptoms: Yes MAYRA DANG 01/27/2010 10:59 CDT Pain Pain Assessment Grid Pain 1 Location: Lower back MAYRA DANG - 01/27/2010 10:59 CDT Dependent Habits Tobacco Use/Currently Using: No Alcohol Use: Yes MAYRA DANG 01/27/2010 10:59 CDT Caffeine Use Grid Caffeine Use: Current Type: Chocolate, Soft drinks, Tea Frequency: Occasionally MAYRA DANG - 01/27/2010 10:59 CDT Allergies Allergies (Active) amoxicillin Estimated Onset [...] SUNSHINE ANGLIN; Reviewed Date: 01/27/2010 10:57 CDT Health History I Cardiovascular Past Medical History PAWEL Andrews MD - 01/27/2010 11:37 CDT Source: [facility] POWERCHART Document Id: [id number] CDT!5 documented in this encounter Plan of Treatment Upcoming Encounters Date Type Specialty Care Team Description 03/25/2022 Office Visit Family Medicine Leslie Gonzalez M.D. [address] [place] [phone] (Wo rk) documented as of this encounter Procedures Procedure Name Priority Date/Time Associated Diagnosis Comme nts DX LUMBAR SPINE 2-3 Routine 01/27/2010 11:27 AM R esults for this VIEWS CDT procedure are i n the results section. documented in this encounter Results DX Lumbar Spine 2-3 Views (01/27/2010 11:27 AM CDT) Anatomical Region Laterality Modality Lumbar Spine N/A Radiographic Imaging Specimen (Source) Anatomical Collection Method Collection Time Re ceived Time Location / / Volume Laterality 01/27/2010 11:27 AM CDT Impressions 01/27/2010 11:49 AM CDT ?? 1. Degenerative disc disease greatest at L2-L3. 2. Mild facet sclerosis lower lumbar spi ne. Narrative 01/27/2010 11:49 AM CDT COMPARISON: None. ?? FINDINGS: ?? Alignment within normal limits. ??Modera te joint space narrowing at L2-L3 evidenced by joint space narrowing , endplate sclerosis, marginal osteophyte formation. Minimal joint spac e narrowing at L1-L2 and L3-4. Mild facet sclerosis of the lower lumbar spine. ?? Sacroiliac joints unremarkable. ?? Visualized bowel gas pattern unremarkabl e. ?? Procedure Note Maxime Liu M.D. / Provider, His preethi M.D. - 10/28/2016 COMPARISON: None. FINDINGS: Alignment within normal limits. Moderate joint space narrowing at L2-L3 evidenced by joint space narrowing , endplate sclerosis, marginal osteophyte formation. Minimal joint spac e narrowing at L1-L2 and L3-4. Mild facet sclerosis of the lower lumbar spine. Sacroiliac joints unremarkable. Visualized bowel gas pattern unremarkabl e. IMPRESSION: 1. Degenerative disc disease greatest at L2-L3. 2. Mild facet sclerosis lower lumbar spi ne. Shirley Heller R.T.(R), R.T.(R)(M) IMG DIAGNOSTIC IM AGING PROCEDURES documented in this encounter Visit Diagnoses Not on filedocumented in this encounter
--- OUTSIDE RECORDS SUMMARY | 2022-03-22 15:52 | XMS_ITS | Encounter Summary ---
:1950 Author Organization [facility] Address [address] [place] [address] Care Team Providers Name Role Phone Unavailable Primary Care Provider Unavailable Encounter Details Date Type Department Care Team Description 12/09/2009 Hospital Encounter HX [facility] FB Dean Abel M.D. Social History Tobacco Use Types Packs/Day Years Used Date Smoking Tobacco: Never Assessed Alcohol Habits Answer Date Recorded How often do you have a drink containing 4 or more times a w [place] 10/05/2021 alcohol? How many drinks containing alcohol [...] 1 to 4 times per year 07/2021 [employer]? Do you belong to any [...] Visit Family Medicine Leslie Gonzalez M.D. [address] [place] [address] [phone] (Wo rk) documented as of this encounter Procedures Procedure Name Priority Date/Time Associated Diagnosis Comme nts BI BREAST SCREENING Routine 12/09/2009 8:43 AM Re sults for this BILATERAL CDT procedure are i n the results section. documented in this encounter Results BI Breast Screening Bilateral (12/09/2009 8:43 AM CDT) Anatomical Region Laterality Modality Breast Bilateral Mammography Specimen (Source) Anatomical Collection Method Collection Time Re ceived Time Location / / Volume Laterality 12/09/2009 8:43 AM CDT Impressions 12/09/2009 2:44 PM CDT BI-RADS 1. ??NEGATIVE. ?? RECOMMENDATION: Routine yearly mammogram . Narrative 12/09/2009 2:44 PM CDT Bilateral digital screening Mammography with computer-aided detection, CAD. ?? COMPARISON: 11/27/2008. ?? HISTORY: 59-year-old female with no hua st complaints or breast problems on today's screening mammogram. ?? FINDINGS: Tissue density is heterogeneou sly dense. There has been no interval change. ?? Procedure Note German Ortiz M.D. / Provider, Katherine pearce M.D. - 10/28/2016 Bilateral digital screening Mammography with computer-aided detection, CAD. COMPARISON: 11/27/2008. HISTORY: 59-year-old female with no hua st complaints or breast problems on today's screening mammogram. FINDINGS: Tissue density is heterogeneou sly dense. There has been no interval change. IMPRESSION: BI-RADS 1. NEGATIVE. RECOMMENDATION: Routine yearly mammogram . Brando Figueroa(Safia)(M) IMG BI PROCEDURES documented in this encounter Visit Diagnoses Not on filedocumented in this encounter
--- OUTSIDE RECORDS SUMMARY | 2022-03-22 15:52 | XMS_ITS | Encounter Summary ---
:1950 Author Organization [facility] Address [address] [place] [address] Care Team Providers Name Role Phone Unavailable Primary Care Provider Unavailable Encounter Details Date Type Department Care Team Description 11/23/2010 Hospital Encounter HX [facility] Ken Dalton M.D. [address] [place] [address], [address] [place], [place] [phone] (Wo rk) Social History Tobacco Use Types Packs/Day Years Used Date Smoking Tobacco: Never Assessed Alcohol Habits Answer Date Recorded How often do you have a drink containing 4 or more times a w [place] 10/05/2021 alcohol? How many drinks containing alcohol [...] encounter Progress Notes Charito Dalton M.D. - 11/23/2010 12:00 AM CDT [id number] CHIEF COMPLAINT/REASON FOR VISIT Followup left posterior thigh pain and new issue of knee pain. HISTORY OF PRESENT ILLNESS Ms. Simmons returns today in follow up. She reports that overall the left posterior thigh pain that she usually is experiencing has improved approximately 70%. However, she has experienced some new symptoms over the past month. She has noted some swelling in the anterior portion of her knee and pain in the left knee when she does any standing or walking. This is especially bothersome if she is squatting in her garden or walking up and down the stairs. This pain is located diffusely in the anterior knee but is worse on the medial aspect of the knee. She again describes some occasional fullness in the posterior aspect of the left knee with some pain extending proximally to the thigh but that has improved. She does report that it feels occasionally as if her knee can sometimes catch in place. She has never had to manually unlock the knee. She denies any swelling, warmth or erythema in the left calf. She does describe some occasional swelling in the left medial ankle region. This typically occurs after she has been walking for sometime and this can also occasionally be painful for her. It has not been red or warm. She reports that overall symptoms related to her spinal stenosis are unchanged. She has been icing the knee and ankle on a regular basis. She again denies any change in her bowel or bladder habits or fevers or chills. PHYSICAL EXAM GENERAL: Pleasant 60-year-old female in no acute distress. GAIT: Gait reveals normal emmanuel and stride. Toe and heel walking are normal. EXTREMITIES: Strength: All major muscle groups of the bilateral upper and lower extremities have normal and symmetric muscle strength, bulk and tone. MUSCULOSKELETAL: Knee: Range of motion from 0 to 135 degrees bilaterally. There is a trace effusion today present in the left knee. There is no warmth or erythema about the left knee. There is mild popliteal fossa tenderness in the location of potential popliteal cyst. There is both medial and lateral joint line tenderness. There is no patellar facet tenderness. Negative bounce home. Cyrus's causes pain in the medial knee without no palpable click. There is no calf warmth, tenderness, or erythema. Negative Homans. There is again mild tenderness over the distal medial hamstrings on the left. Ankle: Full range of motion of the bilateral ankle without pain. There is no swelling noted today in the left medial ankle. There is mild tenderness over the left posterior tibialis tendons. She has pain to resisted left ankle inversion. IMPRESSION/REPORT/PLAN 1. Left knee pain 2. Left medial ankle pain 3. Low back and bilateral lower extremity pain, most consistent with lumbar spinal stenosis. I had a long discussion today with Ms. Simmons. Her symptoms have evolved somewhat since I saw her on October 29. Today she has a trace effusion present in the left knee with positive meniscal provocative maneuvers and she is describing symptoms that could be related to a meniscal tear. In addition, it is likely that she has a popliteal cysts with the fullness in the popliteal fossa. Again she has no warmth, erythema or tenderness in the left calf. I feel the symptoms in the left ankle she experiences are most consistent with posterior tibialis tendopathy. Likely this is from altering the way she is walking secondary to her knee pain. PLAN 1. We are going to proceed with x-rays today of the left knee and with Ms. Simmons's mechanical symptoms and positive meniscal provocative maneuvers, we are going to proceed with an MRI of the left knee as well. 2. She will continue to ice the knee on a regular basis. 3. I will plan on seeing her back following her imaging studies to discuss the results and the next step in her management. She knows to be in contact with me prior to that time if she notes any worsening or worrisome symptoms in which we went over in detail today. She voiced agreement and understanding with this plan. JMP/philippet Signed Charito Dalton M.D. Physical Medicine & Rehabilitation Electronically Signed By: CHARITO DALTON MD On: 12/02/2010 11:11 am Modified by and Electronically Signed by: CHARITO DALTON MD On: 12/02/2010 11:11 am Source: [facility] MHSDOLBEYNONRADSYS Document Id: [id number] documented in this encounter Nursing Notes Brendan Jalloh - 11/23/2010 4:34 PM CDT MRI scheduled at [facility] on November 25 at 10:00, called pt to inform of appointment. Electronically Signed By: BRENDAN PIÑA On: 11/23/2010 04:34 pm Source: [facility] POWERCHART Document Id: [id number] documented in this encounter Miscellaneous Notes Miscellaneous - Brendan Jalloh - 11/23/2010 1:44 PM CDT Adult Group Tester Intake/History Adult Group Tester Intake/History Entered On: 11/23/2010 13:44 CDT Performed On: 11/23/2010 13:44 CDT by BRENDAN PIÑA Intake Systolic Blood Pressure: 130mmHg Diastolic Blood Pressure: 64mmHg NIBP Mean: 86mmHg BP Location: Right upper extremity Actual Weight: 87.300kg(Converted to: 192lb 7oz) Weight Source: Standing scale Dosing Weight Clinic: 87.30kg BRENDAN PIÑA - 11/23/2010 13:44 CDT Subjective Pain Symptoms: No BRENDAN PIÑA - 11/23/2010 13:44 CDT Dependent Habits Tobacco Use/Currently Using: No BRENDAN PIÑA Adrien - 11/23/2010 13:44 CDT Caffeine Use Grid Caffeine Use: Current Type: Chocolate, Soft drinks, Tea Frequency: Occasionally BRENDAN PIÑA Adrien - 11/23/2010 13:44 CDT Allergy Allergies (Active) amoxicillin Estimated Onset [...] ANGLIN; Reviewed Date: 01/27/2010 10:57 CDT Source: [facility] POWERCHART Document Id: [id number]![id number] Miscellaneous - Charito Dalton M.D. - 11/23/2010 1:35 PM CDT [place] [address] Visit Information Name: STEPH SIMMONS Current Date: 11/23/2010 13:35:03 Primary Care Provider: PAWEL SERNA MD Your [...] and stroke. Vaccine: Flu every 1 year 11/23/2010 Immunization to help prevent you from getting the flu strain expected to be a problem for that year's flu season. Vaccine: Tetanus every 10 years 01/27/2010 01/25/2020 Immunization to help prevent you from getting the serious disease Tetanus (Lockjaw). Your Upcoming Appointments Date Time Location Reason Provider 12/15/2010 10:30 [facility] Neurology Bilateral hand and feet paresthesias. I am treating Pt. for lumbar spinal stenosis. Jessenia Fuchs MD 12/18/2010 08:30 [facility] PM&R rc Charito Dalton MD Your Goals/Additional instructions: Source: [employer] Document Id: [id number] Miscellaneous - Charito Dalton M.D. - 11/23/2010 1:35 PM CDT Ambulatory Depart Summary [address] [address] Visit Information Name: MARLINESTEPH FOSS ANN Current Date: 11/23/2010 13:35:02 Primary Care Provider: PAWEL SERNA MD STEPH [...] (multivitamin) once a day Additional Information: Source: [employer] Document Id: [id number] documented in this encounter Plan of Treatment Upcoming Encounters Date Type Specialty Care Team Description 03/25/2022 Office Visit Family Medicine Leslie Gonzalez M.D. [address] [place] [address] [phone] (Wo rk) documented as of this encounter Visit Diagnoses Not on filedocumented in this encounter
--- OUTSIDE RECORDS SUMMARY | 2022-03-22 15:52 | XMS_ITS | Encounter Summary ---
:1950 Author Organization [facility] Address [address] [place] [address] Care Team Providers Name Role Phone Unavailable Primary Care Provider Unavailable Encounter Details Date Type Department Care Team Description 11/23/2010 Hospital Encounter HX [facility] FB Ken Urrutia M.D. [address] [place] [address], [address] [place] [address] (Wo rk) Social History Tobacco Use Types Packs/Day Years Used Date Smoking Tobacco: Never Assessed Alcohol Habits Answer Date Recorded How often do you have a drink containing 4 or more times a w [place] 10/05/2021 alcohol? How many drinks containing [...] Office Visit Family Medicine Leslie Gonzalez M.D. [address] [place] [address] [phone] (Wo rk) documented as of this encounter Procedures Procedure Name Priority Date/Time Associated Diagnosis Comme nts DX KNEE LEFT 3 Routine 11/23/2010 1:53 PM Results for this VIEWS CDT procedure are i n the results section. documented in this encounter Results DX Knee Left 3 Views (11/23/2010 1:53 PM CDT) Anatomical Region Laterality Modality Lower Extremity, Knee Left Radiographic Imagi ng Specimen (Source) Anatomical Collection Method Collection Time Re ceived Time Location / / Volume Laterality 11/23/2010 1:53 PM CDT Impressions 11/23/2010 2:45 PM CDT No fracture, dislocation or acute osseou s abnormality of the left knee. Narrative 11/23/2010 2:45 PM CDT COMPARISON: No Prior ?? HISTORY: Knee pain. No reported trauma. ?? TECHNIQUE: Frontal, patellar sunrise and lateral views of the left knee were obtained. ?? FINDINGS: ?? There is no evidence of fracture, disloc ation or acute osseous abnormality. Joint spaces appear well-ma intained. There is normal osseous mineralization. ??No focal soft tissue swelling or significant joint effusion identified. ?? Procedure Note Hard, Lai Jurado M.D. / Provider, Denise ram M.D. - 10/27/2016 COMPARISON: No Prior HISTORY: Knee pain. No reported trauma. TECHNIQUE: Frontal, patellar sunrise and lateral views of the left knee were obtained. FINDINGS: There is no evidence of fracture, disloc ation or acute osseous abnormality. Joint spaces appear well-ma intained. There is normal osseous mineralization. No focal soft ti ssue swelling or significant joint effusion identified. IMPRESSION: No fracture, dislocation or acute osseou s abnormality of the left knee. Aithai See R.T.(R) IMG DIAGNOSTIC IMAGING PROCE DURES documented in this encounter Visit Diagnoses Not on filedocumented in this encounter
--- OUTSIDE RECORDS SUMMARY | 2022-03-22 15:52 | XMS_ITS | Encounter Summary ---
:1950 Author Organization [facility] Address [address] [place] [address] Care Team Providers Name Role Phone Unavailable Primary Care Provider Unavailable Encounter Details Date Type Department Care Team Description 06/11/2010 Hospital Encounter HX [facility] Ken Dalton M.D. [address] [place] [address], [address] [place] [address] (Wo rk) Social History Tobacco Use Types Packs/Day Years Used Date Smoking Tobacco: Never Assessed Alcohol Habits Answer Date Recorded How often do you have a drink containing 4 or more times a w [place] 10/05/2021 alcohol? How many drinks containing alcohol [...] encounter Progress Notes Charito Dalton M.D. - 06/11/2010 12:00 AM CST [id number] CHIEF COMPLAINT / REASON FOR VISIT Follow up lumbar spinal stenosis and bilateral hand and feet paresthesias. HISTORY OF PRESENT ILLNESS Ms. Simmons returns today in followup. Since I last saw her we obtained laboratory studies including CBC, electrolyte panel, hemoglobin A1C, vitamin B12 and folate, vitamin D and TSH. Her potassium level was very slightly elevated at 5 and her fasting glucose was 111. Her hemoglobin A1C was 5.4. Her TSH was normal. Her vitamin B12 and folate were within normal limits. Her vitamin D is lower end of normal at 28. We also obtained cervical spine MRI. I reviewed the findings with Ms. Simmons. At C4-5 there is loss of disc space height with mild disc bulging and a tiny right paracentral protrusion resulting in moderate to severe right and mild left neural foraminal narrowing. At C5-C6 there is a disc osteophyte complex eccentric to the left with a left paracentral procedure resulting in moderate to severe left and no significant right foraminal narrowing. Ms. Simmons reports that the paresthesias in the hands and feet have lessened with respect to intensity over the past few weeks. She did wean herself off the gabapentin and has noticed that without the gabapentin she is having increased pain in her lower extremities when she is ambulating. Her lower extremity symptoms are still improved overall compared to where they were before the epidural corticosteroid injection but she has noted some slight worsening pain with discontinuing the gabapentin. She denies any new symptoms such as weakness in her upper lower extremities, change in her bowel or bladder habits, or fevers or chills. She again describes the paresthesias and tingling that can involve the fingers in all the toes and can occasionally extend into the dorsal wrist area bilaterally and into the dorsum of the foot bilaterally. Occasionally the paresthesias in her feet can keep her awake at night but this is not frequent. IMPRESSION/REPORT/PLAN 1. Low back and bilateral lower extremity pain, most consistent with pseudoclaudication. 2. MRI evidence for severe central canal stenosis at L4-L5 3. Lumbar spondylosis 4. Hand and feet paresthesias 5. Cervical spondylosis Reassuringly Ms. Simmons's cervical spine MRI did not show any evidence of cervical stenosis. Her laboratory workup for peripheral neuropathy was unremarkable. Her vitamin D level is on the low side of normal. PLAN 1. I am going to have Ms. Appiah take 1000 International Units of vitamin D daily. 2. With respect to her lumbar spinal stenosis, we are going have her reinitiate gabapentin and do this very slowly. She will start at 300 milligrams at bedtime and progress to a goal of 600 milligrams three times daily. The reason we discontinued this initially was because when we had went up on the gabapentin initially that was when Ms. Appiah felt that her paresthesias were worsening and she correlated this potentially with the gabapentin. We will reinitiate this slowly as it has been helpful for her lower extremity pain and see if she notes any change in the paresthesias with the increased dose of the gabapentin. I told her this would be a paradoxical reaction from gabapentin but it may be possible. 3. We discussed possibly proceeding with an EMG to evaluate for the possibility of a peripheral neuropathy as well as a neurology consultation. Ms. Simmons is leaving for [place] tomorrow and will be gone for 3 months. Therefore we have decided to defer that as she will be leaving. She will be in contact with me if she notes any worsening symptoms or any neurologic symptoms which we went over in detail today. Also, if she has any worsening symptoms, she knows to see a physician in [place]. Otherwise I will plan on seeing her when she returns in September from [place] both to reevaluate the paresthesias in her hands and feet as well as her symptoms of pseudoclaudication. Ms. Simmons voiced agreement and understanding with this plan. AILIN/madonna Signed Charito Dalton M.D. Physical Medicine & Rehabilitation CC: Dean Hutchinson M.D. 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 Systolic Blood Pressure: 138mmHg Diastolic Blood Pressure: 70mmHg NIBP Mean: 93mmHg BP Location: Right upper extremity Heart Rhythm: Regular Actual Weight: 88.600kg(Converted to: 195lb 5oz) Dosing Weight Clinic: 88.60kg MIRIAM CHARLES - 06/11/2010 13:32 [employer] Subjective Pain Symptoms: Yes MIRIAM CHARLES 06/11/2010 13:32 [employer] Pain Pain Assessment Grid Pain 1 Pain 2 Location: Upper leg Neck Laterality: Bilateral Bilateral MIRIAM CHARLES 06/11/2010 13:32 [employer] MIRIAM CHARLES 06/11/2010 13:32 [employer] Dependent Habits Tobacco Use/Currently Using: No MIRIAM CHARLES 06/11/2010 13:32 [employer] Caffeine Use Grid Caffeine Use: Current Type: Chocolate, Soft drinks, Tea Frequency: Occasionally MIRIAM CHARLES 06/11/2010 13:32 [employer] Allergies Allergies (Active) amoxicillin Estimated Onset Date: [...] ANGLIN; Reviewed Date: 01/27/2010 10:57 CDT [facility] [employer] Document Id: [id number] [employer]!27 documented in this encounter Plan of Treatment Upcoming Encounters Date Type Specialty Care Team Description 03/25/2022 Office Visit Family Medicine Leslie Gonzalez M.D. [address] [place] [address] [phone] (Wo rk) documented as of this encounter Visit Diagnoses Not on filedocumented in this encounter
--- OUTSIDE RECORDS SUMMARY | 2022-03-22 15:52 | XMS_ITS | Encounter Summary ---
:1950 Author Organization [facility] Address [address] [place] [address] Care Team Providers Name Role Phone Unavailable Primary Care Provider Unavailable Encounter Details Date Type Department Care Team Description 04/03/2010 Hospital Encounter HX [facility] Rolanda Serna M.D. Social History Tobacco Use Types Packs/Day Years Used Date Smoking Tobacco: Never Assessed Alcohol Habits Answer Date Recorded How often do you have a drink containing 4 or more times a w nome 10/05/2021 alcohol? How many drinks containing alcohol [...] encounter Progress Notes Pawel Serna M.D. - 04/03/2010 12:00 AM CDT [id number] CHIEF COMPLAINT/ REASON FOR VISIT Recheck hypothyroidism. HISTORY OF PRESENT ILLNESS This 49-year-old female patient with hypothyroidism needs to have a TSH free T4 to monitor her replacement. That will be done today. She also has schizophrenia has been hearing voices talking to her since June. She is wondering whether she can go on social security since she is having trouble in job because of this problem. She used to go to Dr. Mcdonnell in [place] who is no longer practicing there. She has seen Dr. Cervantes in [place] before. Feel that she should see a psychiatrist regarding her medications that there may be newer treatments for her problem. She is interested in doing this and appointment will be made. EMR record reviewed and updated. SYSTEMS REVIEW 1. Respiratory: No cough or shortness of breath. 2. Cardiovascular: No palpitation of the heart, no chest pain. 3. GI: No nausea, vomiting, diarrhea, constipation or recent change in weight. 4. : No dysuria, no hematuria. 5. All other systems reviewed and negative, except as mentioned above. PHYSICAL EXAM AREA EXAM TEXT SKIN Clear EYES Pupils equal, round, react to light and accommodation; EOMs full; fundi no papilledema, hemorrhage or exudate; lids normal. ENT Ears: TMs clear; external auditory canals clear. Throat clear. Tongue normal. Teeth normal. LYMPH NODES Neck: no lymphadenopathy. THYROID Normal size, symmetric. HEART No murmur, gallop or rub; normal size; PMI arteries normal. LUNGS Clear to percussion and auscultation, normal to inspection, no retractions, no dyspnea. ABDOMEN No masses, no organomegaly, nontender; normal to inspection, percussion and palpation; no distention. EXTREMITIES Legs: no edema. NEURO Reflexes symmetrical +2. IMPRESSION/REPORT/PLAN Schizophrenia. Need psychiatric consultation appointment to be made. Hypothyroidism appears euthyroid. Will do chemistry studies TSH and free T4 to make sure that she is in optimal range. Patient will be contacted with test results. Recheck 1 month return sooner p.r.n. SFO/clf Signed Pawel Serna M.D. Family Medicine Electronically Signed By:PAWEL SERNA MD On 04/07/2010 05:55 PM Source: [facility] MHSDOLBEYNONRADSYS Document Id: [id number] Pawel Serna M.D. - 04/03/2010 12:00 AM CDT [id number] CHIEF COMPLAINT/ REASON FOR VISIT Questionably broken toe. HISTORY OF PRESENT ILLNESS This 59-year-old female patient was going down stairs bumped her left foot injuring her left second toe. Patient has noted that the second toe rides over onto the right toe she doesn't think it did that before. X-rays were taken today no fractures seen. If the overriding persists will get orthopedic consultation. This is Tuesday she will check back on Tuesday it will be a week since the injury then since she injured it 4 days ago. EMR record reviewed and updated. SYSTEMS REVIEW 1. Respiratory: No cough or shortness of breath. 2. Cardiovascular: No palpitation of the heart, no chest pain. 3. GI: No nausea, vomiting, diarrhea, constipation or recent change in weight. 4. : No dysuria, no hematuria. 5. All other systems reviewed and negative, except as mentioned above. PHYSICAL EXAM Reveals tenderness, swelling mild redness to the left second toe no looseness was noted to the joint. IMPRESSION/REPORT/PLAN Contusion, sprain of the left second toe could have non displaced fracture. Plan getting orthopedic consultation if area seems to be not properly aligned. SFO/clf Signed Pawel Serna M.D. Family Medicine Electronically Signed By:PAWEL SERNA MD On 04/07/2010 05:54 PM Source: [facility] MHSDOLBEYNONRADSYS Document Id: [id number] documented in this encounter Miscellaneous Notes Miscellaneous - Pawel Serna M.D. - 04/03/2010 5:27 PM CDT Ambulatory Patient Summary [address] [address] Visit Information Name: STEPH SIMMONS Current Date: 04/03/2010 17:27:16 Primary Care Provider: PAWEL SERNA MD [id number] Your Medications Here is a list of your medications. It is important to take your medications as directed. Use a pillbox or chart to help remind you to take your medications. Please let your doctor or nurse know if you have problems taking your medications. Medication/Strength Dose Route Frequency Indications/Special Instructions/Comments gabapentin (gabapentin 300 mg oral tablet) 1 tab(s) Oral three times a day as directed to a goal of 600 mg po tid methocarbamol (Robaxin-750 oral tablet) 1,500 mg Oral three times a day calcium-vitamin D (Calcium 600+D) Oral two times a day multivitamin (multivitamin) once a day pantoprazole (Protonix) 40 mg Oral two times a day Your Allergies & Intolerances Substance [...] Information Screening Colonoscopy or Flex Sig or Barium Enema or Occult Blood X3 05/20/2000 05/18/2010 Checks [...] and stroke. Vaccine: Flu every 1 year 04/03/2010 Immunization to help prevent you from getting the flu strain expected to be a problem for that year's flu season. Vaccine: Tetanus every 10 years 01/27/2010 01/25/2020 Immunization to help prevent you from getting the serious disease Tetanus (Lockjaw). Your Upcoming Appointments Date Time Location Reason Provider 04/21/2010 09:00 [facility] Brendan Dalton MD, Adrian Jurado Your Goals/Additional instructions: Source: [facility] POWERCHART Document Id: [id number] Electronically signed by Aaron [facility] Chick Room Supervisor [id number] at 11/08/2016 1:11 AM CDT Miscellaneous - Pawel Serna M.D. - 04/03/2010 5:27 PM CDT [place]ulatory [place] [address] Visit Information Name: STEPH SIMMONS Current Date: 04/03/2010 17:27:15 Primary Care Provider: PAWEL SERNA MD [id number] STEPH SIMMONS has been given the following list of medications: Your Medications It is important to take your medications as directed. Use a pill box or chart to help remind you to take your medications. Please let your doctor or nurse know if you have problems taking your medications. Medication/Strength Dose Route Frequency Indications/Special Instructions/Comments gabapentin (gabapentin 300 mg oral tablet) 1 tab(s) Oral three times a day as directed to a goal of 600 mg po tid methocarbamol (Robaxin-750 oral tablet) 1,500 mg Oral three times a day calcium-vitamin D (Calcium 600+D) Oral two times a day multivitamin (multivitamin) once a day pantoprazole (Protonix) 40 mg Oral two times a day Additional Information: Yes - Current list of reconciled medications is provided and explained to the patient and/or family, guardian/caregiver. Source: [facility] POWERCHART Document Id: [id number] Miscellaneous - Conversion, Historical Provider Ser - 04/03/2010 2:11 PM CDT Adult [facility] Intake/History Document Has Been Updated Adult [facility] Intake/History Entered On: 04/03/2010 14:13 CDT Performed On: 04/03/2010 14:11 CDT by MIRIAM CHARLES Intake Chief Complaint: ? broken toe Temperature Core: 36.6C(Converted to: 97.9DegF) MIRIAM CHARLES - 04/03/2010 14:11 CDT Peripheral Pulse Rate: 68/min Respiratory Rate: 16/min MIRIAM CHARLES - 04/03/2010 14:16 CDT Systolic Blood Pressure: 128mmHg Diastolic Blood Pressure: 78mmHg NIBP Mean: 95mmHg BP Location: Left upper extremity Heart Rhythm: Regular Height: 169.00cm(Converted to: 5ft 7in, 66.54in) Actual Weight: 90.600kg(Converted to: 199lb 12oz) Weight Source: Standing scale Dosing Weight Clinic: 90.60kg Clinic BSA: 2.06 Body Mass Index: 32kg/m2 MIRIAM CHARLES - 04/03/2010 14:11 CDT Subjective Pain Symptoms: No MIRIAM CHARLES - 04/03/2010 14:11 CDT Dependent Habits Tobacco Use/Currently Using: No MIRIAM CHARLES - 04/03/2010 14:11 CDT Caffeine Use Grid Caffeine Use: Current Type: Chocolate, Soft drinks, Tea Frequency: Occasionally MIRIAM CHARLES - 04/03/2010 14:11 CDT Allergies Allergies (Active) amoxicillin Estimated Onset [...] ANGLIN; Reviewed Date: 01/27/2010 10:57 CDT Source: [employer] Document Id: [id number] CDT!4 documented in this encounter Plan of Treatment Upcoming Encounters Date Type Specialty Care Team Description 03/25/2022 Office Visit Family Medicine Leslie Gonzalez M.D. [address] [place] [address] [phone] (Wo rk) documented as of this encounter Procedures Procedure Name Priority Date/Time Associated Diagnosis Comme nts DX TOES LEFT 2 Routine 04/03/2010 2:42 PM Results for this VIEWS CDT procedure are i n the results section. documented in this encounter Results DX Toes Left 2 Views (04/03/2010 2:42 PM CDT) Anatomical Region Laterality Modality Lower Extremity, Toes Left Radiographic Imagi ng Specimen (Source) Anatomical Collection Method Collection Time Re ceived Time Location / / Volume Laterality 04/03/2010 2:42 PM CDT Narrative 04/03/2010 3:35 PM CDT Left second toe. Three views. ?? FINDINGS: Negative Procedure Note Ras Ness D.O. / Provider, Farzad good M.D. - 10/29/2016 Left second toe. Three views. FINDINGS: Negative Shirley Figueroa(R), R.TGiovany(R)(M) IMG DIAGNOSTIC IM AGING PROCEDURES documented in this encounter Visit Diagnoses Not on filedocumented in this encounter
--- OUTSIDE RECORDS SUMMARY | 2022-03-22 15:52 | XMS_ITS | Encounter Summary ---
:1950 Author Organization [facility] Address [address] [place] [address] Care Team Providers Name Role Phone Unavailable Primary Care Provider Unavailable Encounter Details Date Type Department Care Team Description 05/28/2010 Hospital Encounter HX [facility] Aung Dalton M.D. [address] [place] [address], [address] [place] [address] (Wo rk) Social History Tobacco Use Types Packs/Day Years Used Date Smoking Tobacco: Never Assessed Alcohol Habits Answer Date Recorded How often do you have a drink containing 4 or more times a w nikolai 10/05/2021 alcohol? How many drinks containing alcohol [...] Visit Family Medicine Leslie Gonzalez M.D. [address] [place] [address] [phone] (Wo rk) documented as of this encounter Visit Diagnoses Not on filedocumented in this encounter
--- OUTSIDE RECORDS SUMMARY | 2022-03-22 15:52 | XMS_ITS | Encounter Summary ---
:1950 Author Organization [facility] Address [address] [place] [address] Care Team Providers Name Role Phone Unavailable Primary Care Provider Unavailable Encounter Details Date Type Department Care Team Description 03/06/2010 Hospital Encounter HX [facility] Ken Dalton M.D. [address] [place] [address], [address] [place], [place] [phone] (Wo rk) Social History Tobacco Use Types Packs/Day Years Used Date Smoking Tobacco: Never Assessed Alcohol Habits Answer Date Recorded How often do you have a drink containing 4 or more times a w [place] 10/05/2021 alcohol? How many drinks containing alcohol [...] encounter Progress Notes Charito Dalton M.D. - 03/06/2010 12:00 AM CDT [id number] CHIEF COMPLAINT/REASON FOR VISIT Follow up low back and bilateral lower extremity pain HISTORY OF PRESENT ILLNESS Mr. Simmons returns today in follow up. On February 26, she had an MRI performed of her lumbar spine. I reviewed the images in detail with her. Significant findings include multilevel degenerative disc changes throughout the lumbar spine. At L4-5, there is a moderate broad based posterior disc bulge and this in combination with moderate bilateral posterior articular facet degenerative changes and ligamentum flavum lax the results in severe central canal and bilateral lateral recess stenosis. At L5-S1, there is a mild broad based posterior disc bulge eccentric to the left resulting moderate left foraminal narrowing. At L3-4, there is a mild broad based posterior disc bulge eccentric to the left resulting in mild left foraminal narrowing. At L2-3, there is mild to moderate central canal stenosis secondary to a mild broad based posterior disc bulge with associated posterior articular facet arthropathy. Ms. Simmons reports that her symptoms are basically unchanged since I saw her on February 20. She has weaned herself off of the Robaxin and feels more alert during the day and has not noted any change in her pain. She has also decreased her Tylenol to 2 tablets t.i.d. as we had talked about previously. She again denies any weakness in her lower extremities, changes in her bowel or bladder habits or fevers or chills. IMPRESSION/REPORT/PLAN 1. Low back and bilateral lower extremity pain 2. MRI evidence for severe central canal stenosis at L4-5 3. Lumbar spondylosis I had a long discussion today with Ms. Simmons and answered multiple appropriate questions that she had. I do feel that her symptoms are consistent with lumbar spinal stenosis and this would fit with her severe central canal and lateral recess stenosis seen at L4-5 secondary to a broad based disc bulge and facet arthropathy. We discussed a variety of treatment options including both nonoperative and operative. PLAN 1. We are going to initiate Gabapentin 300 mg at bedtime progressing to a goal of 600 mg t.i.d. to try and help with Ms. Simmons's discomfort. 2. I am going to have her involved in physical therapy. I have given her a detailed prescription for this today. We will work on a variety of things including a dynamic lumbar stabilization program with a flexion bias. 3. We discussed the possibility of an epidural corticosteroid injection. Based on Ms. Simmons's bilateral lower extremity symptoms and her findings on her MRI, I would suggest an L5-S1 interlaminar epidural corticosteroid injection. After discussing this in detail with Ms. Simmons, we have decided to defer that at the current time and see instead how she progresses with the Gabapentin and physical therapy. 4. We discussed the possibility of a consultation with a spine surgeon. After discussing this in detail with Ms. Simmons, she would like to hold off on that at the current time and initiate the Gabapentin and physical therapy as described above which I think is very reasonable with her normal neurologic examination when I evaluated her last week. 5. I will plan on seeing Ms. Simmons back in six weeks to assess her progress. She will be in contact with me prior to that time if she notes any worsening or worrisome symptoms which we went over in detail today. Total time 25 minutes and counseling time 20 minutes AILIN/adelfo Signed Charito Dalton M.D. Physical Medicine & Rehabilitation CC: Dean Hutchinson M.D. [address] [address] Electronically Signed By:CHARITO DALTON MD On 03/25/2010 05:45 PM Modified by:CHARITO DALTON MD On 03/25/2010 05:45 PM Source: [facility] MHSDOLBEYNONRADSYS Document Id: [id number] documented in this encounter Miscellaneous Notes Miscellaneous - Monserrat Paris P.A.-C. - 03/06/2010 11:13 AM CDT Adult Memory Care Program Director Intake/History Adult Memory Care Program Director Intake/History Entered On: 03/06/2010 11:13 CDT Performed On: 03/06/2010 11:13 CDT by MONSERRAT PARIS Intake Systolic Blood Pressure: 128mmHg Diastolic Blood Pressure: 66mmHg NIBP Mean: 87mmHg BP Location: Right upper extremity Actual Weight: 88.000kg(Converted to: 194lb 0oz) Weight Source: Standing scale Dosing Weight Clinic: 88.00kg MONSERRAT PARIS - 03/06/2010 11:13 CDT Subjective Pain Symptoms: No MONSERRAT PARIS - 03/06/2010 11:13 CDT Dependent Habits Tobacco Use/Currently Using: No MONSERRAT PARIS - 03/06/2010 11:13 CDT Caffeine Use Grid Caffeine Use: Current Type: Chocolate, Soft drinks, Tea Frequency: Occasionally MONSERRAT PARIS - 03/06/2010 11:13 CDT Allergies Allergies (Active) amoxicillin Estimated Onset [...] ANGLIN; Reviewed Date: 01/27/2010 10:57 CDT Source: [facility] [employer] [facility] Document Id: [id number] CDT!18 documented in this encounter Plan of Treatment Upcoming Encounters Date Type Specialty Care Team Description 03/25/2022 Office Visit Family Medicine Leslie Gonzalez M.D. [address] [place] [address] [phone] (Wo rk) documented as of this encounter Visit Diagnoses Not on filedocumented in this encounter
--- OUTSIDE RECORDS SUMMARY | 2022-03-22 15:52 | XMS_ITS | Encounter Summary ---
:1950 Author Organization [facility] Address [address] [place] [address] Care Team Providers Name Role Phone Unavailable Primary Care Provider Unavailable Encounter Details Date Type Department Care Team Description 05/27/2010 Hospital Encounter HX [facility] Ken Dalton M.D. [address] [place] [address], [address] [place], [place] [phone] (Wo rk) Social History Tobacco Use Types [...] or relatives? How often do you attend restorationist or 1 to 4 times per year 07/2021 yazidi services? Do you belong to any clubs or Yes 10/05/2021 organizations such as restorationist groups, unions, fraternal or athletic groups, or [...] encounter Progress Notes Charito Dalton M.D. - 05/27/2010 12:00 AM CST [id number] CHIEF COMPLAINT/REASON FOR VISIT Follow-up lumbar spinal stenosis and new issue of bilateral hand and feet paresthesias. HISTORY OF PRESENT ILLNESS Ms. Simmons returns today in followup. On May 13, I performed a L5-S1 interlaminar epidural corticosteroid injection. She reports that this has helped her symptoms. She is no longer having any of the sharp shooting pains that she was having previously into her lower extremities. She still can experience a dull ache in her gluteal regions and posterior thighs when she is ambulating. When she sits that pain resolves completely. She estimates that she was nearly 100% better for the first week after the procedure, but then the pain has been slowly starting to worsen again but is not back to its preinjection level at this point. She had rated it at its worst as a 5/10. She has been having some new symptoms that she would like to discuss. Approximately 7 to 10 days prior to the epidural corticosteroid injection, at the beginning of May, she noticed paresthesias that were first occurring in her feet. She describes this as numbness and tingling involving the toes extending into the dorsum of the feet. Then shortly thereafter she also started to notice these same symptoms in her hands. It involves all the fingers of both hands. It does not extend into the forearms or arms. She denies any neck pain. She denies any weakness in her upper/lower extremities. She denies any difficulties with her gait. She denies any change in her bowel or bladder habits, fevers or chills, unintentional weight loss or night sweats. She does have a history of a right carpal tunnel release and she reports that these symptoms do not feel anything like what she had when she had her carpal tunnel syndrome. This numbness and tingling can occur during the day, as well as at night. It tends to come and go and it does not seem related to anything that she does to exacerbate the pain. PHYSICAL EXAM GENERAL: Pleasant 60-year-old female in no acute distress. NEUROLOGICAL: Mental status: Oriented to person, place and time. Appropriate mood and affect. Gait: Gait reveals normal emmanuel and stride. Toe and heel walking are normal. Strength: All major muscle groups of the bilateral upper and lower extremities have normal and symmetric muscle strength, bulk and tone. Reflexes: Bilateral upper and lower extremity muscle stretch reflexes are physiologic and symmetric. Plantar responses downgoing bilaterally. Sensation: Normal pinprick and light touch sensation through upper and lower extremities. MUSCULOSKELETAL: SPINE: Normal pain free range of motion of the cervical spine. Negative Spurling's bilaterally. Palpation: There is no tenderness to palpation over the cervical paraspinals or the cervical spinous processes. Provocative maneuvers: Positive carpal tunnel compression test bilaterally at 15 seconds and positive Phalen's test bilaterally at 20 seconds. IMPRESSION/REPORT/PLAN 1. Low back and bilateral lower extremity pain, most consistent with pseudoclaudication. 2. MRI evidence for severe central canal stenosis at L4-L5 3. Lumbar spondylosis 4. Hand and feet paresthesias Ms. Simmons'jody neurologic examination is unchanged. I am not entirely sure how to account for the paresthesias she is having in her hands and feet. One thing that would need to be considered would be stenosis in her cervical spine potentially causing these symptoms similar to what she has in her lumbar spine, although her reflexes are hyporeflexic if anything and there is no upper motor neuron signs on her examination. In addition, she is not having any neck pain. Other things to consider would include something such as a peripheral neuropathy, although these symptoms came on quite suddenly and she has intact sensation to pinprick and light touch in both her feet and hands. I discussed from the standpoint that there could be several potential causes of neuropathy. Finally, she does have positive carpal tunnel provocative maneuvers but that would not account for the symptoms in her feet obviously. Some of the paresthesias in her feet could be explained potentially by the lumbar spinal stenosis but again that would not explain the paresthesias in her hands. Also, we did increase her Gabapentin dose around the time that these paresthesias began. It would be unusual for that to be associated with the Gabapentin, but that is the only new medication she has taken around the time that these paresthesias began. PLAN 1. With these symptoms that now have been ongoing for nearly a month, we are going to work up these paresthesias including obtaining an electrolyte panel, CBC, vitamin B12 and folate, TSH, hemoglobin A1c, fasting glucose, and vitamin D level. 2. We will also obtain cervical spine x-rays and we discussed potentially proceeding with a cervical spine MRI to rule out any potential spinal cord compression, although again she has no upper motor neuron signs on her examination today. After discussing that in detail, we decided to see what happens with slowly weaning her off of her Gabapentin to see if that makes any difference with respect to her paresthesias. She is going to do this over the course of the next 10 days. 3. I will plan on being in contact with Ms. Appiah in 10 days to assess her progress over the phone. If she has not improved we may proceed with a cervical spine MRI to evaluate this further, especially with the fact that she is scheduled to leave for [place] the first week in June for 3 months and does not have a regular physician in [place]. 4. For her her low back and bilateral lower extremity pain, she will continue the exercises she was shown in physical therapy with respect to her lumbar spinal stenosis. We had potentially discussed having her meet with a spine surgeon depending on her responses to the epidural corticosteroid injection. We will likely discuss this further when she returns from [place]. Total time 30 minutes, counseling time 20 minutes. AILIN/philippet Signed Charito Dalton M.D. Physical Medicine & Rehabilitation CC: Dean Hutchinson M.D. Family Medicine [address] [place] [id number] Electronically Signed By:CHARITO DALTON MD On 06/09/2010 01:20 PM Modified by:CHARITO DALTON MD On 06/09/2010 01:19 PM Source: [facility] MHSDOLBEYNONRADSYS Document Id: [id number] CIATE CHEMIST documented in this encounter Miscellaneous Notes Miscellaneous - Monserrat Paris P.A.-C. - 05/27/2010 3:56 PM CST Ambulatory Vitals Height Weight Ambulatory Vitals Height Weight Entered On: 05/27/2010 15:56 ASSOCIATE CHEMIST Performed On: 05/27/2010 15:56 ASSOCIATE CHEMIST by MONSERRAT PARIS Vitals/Ht/Wt Systolic Blood Pressure: 136mmHg Diastolic Blood Pressure: 68mmHg NIBP Mean: 91mmHg BP Location: Right upper extremity MONSERRAT PARIS - 05/27/2010 15:56 ASSOCIATE CHEMIST Source: [facility] POWERCHART Document Id: [id number] ASSOCIATE CHEMIST!6 CIATE CHEMIST Miscellaneous - Monserrat Paris P.A.-C. - 05/27/2010 3:54 PM CST Adult Manufacturing Lead Intake/History Adult Manufacturing Lead Intake/History Entered On: 05/27/2010 15:54 ASSOCIATE CHEMIST Performed On: 05/27/2010 15:54 ASSOCIATE CHEMIST by MONSERRAT PARIS Intake Systolic Blood Pressure: 136mmHg Diastolic Blood Pressure: 68mmHg NIBP Mean: 91mmHg BP Location: Right upper extremity Actual Weight: 89.300kg(Converted to: 196lb 14oz) Weight Source: Standing scale Dosing Weight Clinic: 89.30kg MONSERRAT PARIS - 05/27/2010 15:54 ASSOCIATE CHEMIST Subjective Pain Symptoms: No MONSERRAT PARIS - 05/27/2010 15:54 ASSOCIATE CHEMIST Dependent Habits Tobacco Use/Currently Using: No MONSERRAT PARIS - 05/27/2010 15:54 ASSOCIATE CHEMIST Caffeine Use Grid Caffeine Use: Current Type: Chocolate, Soft drinks, Tea Frequency: Occasionally MONSERRAT PARIS - 05/27/2010 15:54 ASSOCIATE CHEMIST Allergies Allergies (Active) amoxicillin Estimated Onset Date: [...] ANGLIN; Reviewed Date: 01/27/2010 10:57 CDT Source: [facility] Cnekt Document Id: [id number] ASSOCIATE CHEMIST!18 CIATE CHEMIST documented in this encounter Plan of Treatment Upcoming Encounters Date Type Specialty Care Team Description 03/25/2022 Office Visit Family Medicine Leslie Gonzalez M.D. [address] [place] [address] [phone] (Wo rk) documented as of this encounter Visit Diagnoses Not on filedocumented in this encounter
--- OUTSIDE RECORDS SUMMARY | 2022-03-22 15:52 | XMS_ITS | Encounter Summary ---
:1950 Author Organization [facility] Address [address] [place] [address] Care Team Providers Name Role Phone Unavailable Primary Care Provider Unavailable Encounter Details Date Type Department Care Team Description 02/20/2010 Hospital Encounter HX [facility] Ken Dalton M.D. [address] [place] [address], [address] [place], [place] [phone] (Wo rk) Social History Tobacco Use Types Packs/Day Years Used Date Smoking Tobacco: Never Assessed Alcohol Habits Answer Date Recorded How often do you have a drink containing 4 or more times a w [place] 10/05/2021 alcohol? How many drinks containing alcohol [...] 01/27/2010 021 documented as of this encounter Consult Notes Charito Dalton M.D. - 02/20/2010 12:00 AM CDT [id number] CHIEF COMPLAINT/REASON FOR VISIT Referral is by Dr. Hutchinson. Low back and bilateral lower extremity pain HISTORY OF PRESENT ILLNESS Ms. Simmons is a pleasant 59 year old retired female who had the onset of low back and bilateral extremity pain several months ago. She says that this pain began rather acutely and has gradually worsened since that time. She describes an achy discomfort that is located in her low back and bilateral gluteal regions. This pain then radiates into the posterior thighs and into the right greater than left lateral leg to the level of the ankle. The pain does not extend into the feet. She would estimate that 10% of her pain is in the low back and 90% in the gluteal regions and bilaterally lateral lower extremities. She rates this pain at its worst as a 7/10. The worst pain for her is when she goes from a seated to a standing position the first few steps after standing. Also when she first gets out of bed in the morning, she is very stiff and has pain. Then are various times during the day when she can have shooting pain down into the lower extremities. She denies any weakness in her lower extremities. She denies any paresthesias in her lower extremities. She denies any changes in her bowel or bladder habits, fevers or chills or recent unintentional weight loss. She did have herniated disc several years ago but that improved in physical therapy and medications. This is different than that pain to her however. She did have x-rays performed of her lumbar spine which I reviewed in detail with her. These were performed on January 27 and showed mild multilevel degenerative disc space narrowing most pronounced at L2-3. There are anterior osteophytes off the L2-3 vertebral bodies. There is facet arthropathy in the lower lumbar spine. Ms. Simmons has been using extra-strength Tylenol three tabs three times a day as well as Aleve one tablet two times per day and Robaxin two tablets three times a day for the past week. She does feel that all of these medications help her pain somewhat. She does not have any pain at night. She has been alternating heat and ice which she also finds to be helpful. CURRENT MEDICATIONS Post-visit Medication Reconciliation 1. Protonix 40 mg twice daily 2. Multivitamin 3. Calcium plus vitamin D 4. Extra-strength Tylenol 5. Aleve 6. Robaxin 750 mg two tabs t.i.d. as needed for muscle spasms ALLERGIES Amoxicillin, Levaquin, Morphine, Piroxicam SYSTEMS REVIEW Negative except as per HPI PAST MEDICAL/SURGICAL HISTORY 1. 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 She is . She lives in [place]. She quit smoking approximately 15 years ago. PHYSICAL EXAM AREA EXAM TEXT GENERAL Well-developed, well-nourished individual in no acute distress. SKIN Gross inspection of skin is unremarkable for erythema, breakdown or concerning lesions. SPINE Preserved range of motion of the lumbar spine. She is able to touch her toes with lumbar flexion. She has preserved lumbar extension. Palpation: There is mild tenderness to palpation over the lower lumbar paraspinals as well as in the upper gluteal regions bilaterally. There is no tenderness over the greater trochanters bilaterally. JOINTS Full range of motion of the bilateral hips without pain. Hip: Negative MARY and Stinchfield's tests. EXTREMITIES Strength: All major muscle groups of the bilateral upper and lower extremities have normal and symmetric muscle strength, bulk and tone. Reflexes: Bilateral upper and lower extremity muscle stretch reflexes are physiologic and symmetric. Plantar responses downgoing bilaterally. Sensation: Normal pinprick and light touch sensation through upper and lower extremities. Straight leg raise does cause pain in the posterior thigh at approximately 55 degrees bilaterally. GAIT Gait reveals normal emmanuel and stride. Toe and heel walking are normal. NEURO Oriented to person, place and time. Appropriate mood and affect. IMPRESSION/REPORT/PLAN 1. Low back and bilateral lower extremity pain 2. Lumbar spondylosis I had a long discussion today with Ms. Simmons. She has a normal neurologic examination. Her symptoms are somewhat suspicious for spinal stenosis as being the etiology of her pain. However, it is somewhat atypical that she is able to walk such long distances without necessarily having an increase in her pain. She walks an average of 4 miles per day. However, her pain is worse with extension and bending backwards reproduces her bilateral lower extremity pain as well as the majority of her pain is in her gluteal regions and lower extremities. PLAN 1. Due to the length of time this pain has persisted as well as Ms. Appiah's symptoms, we are going to proceed with an MRI of the lumbar spine. 2. I am going to have her decrease her extra-strength Tylenol to two tabs t.i.d. She continues to take Aleve one tab b.i.d. We discussed potentially trying to decrease the use of the Robaxin as well as she has been taking this now for a month. 3. I will plan on seeing her back following the MRI to discuss the results and the next step in her management. JMP/cmt Signed Charito Dalton M.D. Physical Medicine & Rehabilitation CC: [place] [address] Electronically Signed By:CHARITO DALTON MD On 02/27/2010 02:24 PM Modified by:CHARITO DALTON MD On 02/27/2010 02:24 PM Source: [facility] MHSDOLBEYNONRADSYS Document Id: [id number] documented in this encounter Miscellaneous Notes Miscellaneous - Monserrat Paris P.A.-C. - 02/20/2010 8:54 AM CDT Adult Suppression Crew Leader Intake/History Adult Suppression Crew Leader Intake/History Entered On: 02/20/2010 8:58 CDT Performed On: 02/20/2010 8:54 CDT by MONSERRAT PARIS Intake Systolic Blood Pressure: 130mmHg Diastolic Blood Pressure: 70mmHg NIBP Mean: 90mmHg BP Location: Right upper extremity Actual Weight: 88.600kg(Converted to: 195lb 5oz) Weight Source: Standing scale Dosing Weight Clinic: 88.60kg MONSERRAT PARIS - 02/20/2010 8:54 CDT Subjective Pain Symptoms: No MONSERRAT PARIS 02/20/2010 8:54 CDT Dependent Habits Tobacco Use/Currently Using: No MONSERRAT PARIS ZULY 02/20/2010 8:54 CDT Caffeine Use Grid Caffeine Use: Current Type: Chocolate, Soft drinks, Tea Frequency: Occasionally SHAY PARISERIE ZULY 02/20/2010 8:54 CDT Allergies Allergies (Active) amoxicillin Estimated Onset [...] ANGLIN; Reviewed Date: 01/27/2010 10:57 CDT Source: [facility] AVdirectCHART Document Id: [id number] CDT!18 documented in this encounter Plan of Treatment Upcoming Encounters Date Type Specialty Care Team Description 03/25/2022 Office Visit Family Medicine Leslie Gonzalez M.D. [address] [place] [address] [phone] (Wo rk) documented as of this encounter Visit Diagnoses Not on filedocumented in this encounter
--- OUTSIDE RECORDS SUMMARY | 2022-03-22 15:52 | XMS_ITS | Encounter Summary ---
:1950 Author Organization [facility] Address [address] [place] [address] Care Team Providers Name Role Phone Unavailable Primary Care Provider Unavailable Encounter Details Date Type Department Care Team Description 10/05/2010 Hospital Encounter HX [facility] Ken Dalton M.D. [address] [place] [address], [address] [place] [address] (Wo rk) Social History Tobacco Use Types Packs/Day Years Used Date Smoking Tobacco: Never Assessed Alcohol Habits Answer Date Recorded How often do you have a drink containing 4 or more times a w [place] 10/05/2021 alcohol? How many drinks containing alcohol [...] encounter Progress Notes Charito Dalton M.D. - 10/05/2010 12:00 AM CDT [id number] CHIEF COMPLAINT / REASON FOR VISIT Follow-up lumbar spinal stenosis and bilateral hand and feet paresthesias. HISTORY OF PRESENT ILLNESS Ms. Simmons returns today in follow up. She spent the winter in [place] and returned approximately 1 1/2 weeks ago. She reports that she had a good winter overall. She feels that the pain that she has been having in her lower extremity has decreased. She especially notes this in the fact that she is no longer having any of the sharp pain that she was having at night that was preventing her from sleeping. She is not able to sleep without difficulty which has made things significantly better. She still does rate her pain approximately a 5-6/10 at its worst. This typically occurs when she goes from a seated to a standing position or stands in one position for a prolonged period of time. She describes this pain as located in the bilateral gluteal regions then radiates in the posterior thighs to level of the mid thigh. It is no longer radiating distal to that. She did do a lot of walking in [place] and while the symptoms were present she was able to tolerate that and she enjoyed walking. She continues to describe paresthesias in the bilateral hands and feet which are unchanged. She describes this in hands as encompassing all of the digits. The feet encompasses all the digits and can radiate to the mid caballero on occasion but this typically is worse in the feet. She denies any focal weakness in upper or lower extremities. She denies any changes in her bowel or bladder habits, fevers or chills, or recent unintentional weight loss. She does describe low back pain when she is doing things such carrying her 1-year-old great-niece or doing dishes but the worst pain continues to be in the bilateral gluteal region radiating into the posterior thigh. PHYSICAL EXAM GENERAL: Pleasant 60-year-old female in [...] through upper and lower extremities. MUSCULOSKELETAL: SPINE: Full preserved lumbar range of motion. She has mild discomfort across the low back and at the end range of extension. Full range of motion of the cervical spine without pain. Negative Spurling's bilaterally. Negative carpal tunnel compression test and Phalen's test today bilaterally. IMPRESSION/REPORT/PLAN 1. Low back and bilateral lower extremity pain, most consistent with pseudoclaudication. 2. MRI evidence for severe central canal stenosis at L4-L5 3. Lumbar spondylosis 4. Hand and feet paresthesias 5. Cervical spondylosis Ms. Simmons's neurologic examination is unchanged. Overall, her pain has improved. She is able to be much more functional than she was when this pain initially began and is not having pain now at night when sleeping. PLAN 1. Ms. Simmons will continue with her Gabapentin 600 milligrams three times daily. She does admit that she forgets her afternoon dose frequently but always takes the morning and evening doses. 2. I want her to continue with the exercises that she was shown in physical therapy on her own. We also discussed the possibility of an aquatic aerobic program this summer and she is going to look into this. 3. I am going to have her see Dr. Fuchs, neurologist with respect to her bilateral hand and feet paresthesias. As discussed with her previously, her foot paresthesias could certainly be explained by her lumbar spinal stenosis but her hand paresthesias would obviously not be explained by that. She has normal sensation but the paresthesias are present basically at all times. We had discussed previously proceeding with an EMG and I still think this would likely be the next step to consider but I would like her to see Dr. Fuchs first to see if there is any further additional workup Dr. Fuchs feels is necessary before proceeding with the EMG and Ms. Simmons is in agreement with this. 4. I will plan on seeing Ms. Simmons back following her neurology consult or sooner if she notes any worsening or worrisome symptoms which we went over in detail today. She voiced agreement and understanding with this plan. Total time 30 minutes and counseling time 20 minutes. JMP/cmt Signed Charito Dalton M.D. Physical Medicine & Rehabilitation CC: Dean Hutchinson M.D. Family Medicine [address] [place] [address] Jessenia Fuchs M.D. Neurology [address] [place] [address] Electronically Signed By: CHARITO DALTON MD On: 10/13/2010 11:55 Modified by and Electronically Signed by: CHARITO DALTON MD On: 10/13/2010 11:55 AM Source: [facility] MHSDOLBEYNONRADSYS Document Id: [id number] documented in this encounter Miscellaneous Notes Miscellaneous - Monserrat Paris P.A.-C. - 10/05/2010 11:29 AM CDT Ambulatory Vitals Height Weight Ambulatory Vitals Height Weight Entered On: 10/05/2010 11:29 CDT Performed On: 10/05/2010 11:29 CDT by MONSERRAT PARISs/Ht/Wt Systolic Blood Pressure: 132mmHg Diastolic Blood Pressure: 60mmHg NIBP Mean: 84mmHg BP Location: Right upper extremity MONSERRAT PARIS - 10/05/2010 11:29 CDT Source: [facility] POWERCHART Document Id: [id number] CDT!6 Miscellaneous - Monserrat Paris P.A.-C. - 10/05/2010 11:28 AM CDT Adult Lead Sql Developer Intake/History Adult Lead Sql Developer Intake/History Entered On: 10/05/2010 11:29 CDT Performed On: 10/05/2010 11:28 CDT by MONSERRAT PARIS Intake Systolic Blood Pressure: 134mmHg Diastolic Blood Pressure: 60mmHg NIBP Mean: 85mmHg BP Location: Right upper extremity Actual Weight: 86.900kg(Converted to: 191lb 9oz) Weight Source: Standing scale Dosing Weight Clinic: 86.90kg MONSERRAT PARIS - 10/05/2010 11:28 CDT Subjective Pain Symptoms: No MONSERRAT PARIS - 10/05/2010 11:28 CDT Dependent Habits Tobacco Use/Currently Using: No MONSERRAT PARIS - 10/05/2010 11:28 CDT Caffeine Use Grid Caffeine Use: Current Type: Chocolate, Soft drinks, Tea Frequency: Occasionally MONSERRAT PARIS - 10/05/2010 11:28 CDT Allergy Allergies (Active) amoxicillin Estimated Onset [...] ANGLIN; Reviewed Date: 01/27/2010 10:57 CDT [facility]: [facility] Document Id: [id number] CDT!18 documented in this encounter Plan of Treatment Upcoming Encounters Date Type Specialty Care Team Description 03/25/2022 Office Visit Family Medicine Leslie Gonzalez M.D. [address] [place] [address] [phone] (Wo rk) documented as of this encounter Visit Diagnoses Not on filedocumented in this encounter
--- OUTSIDE RECORDS SUMMARY | 2022-03-22 15:52 | XMS_ITS | Encounter Summary ---
:1950 Author Organization [facility] Address [address] [place] [address] Care Team Providers Name Role Phone Unavailable Primary Care Provider Unavailable Encounter Details Date Type Department Care Team Description 01/07/2011 Hospital Encounter HX [facility] FB Dean Abel M.D. Social History Tobacco [...] 1 to 4 times per year 07/2021 yazdanism services? Do you belong to any clubs [...] Visit Family Medicine Leslie Gonzalez M.D. [address] [place] [address] [phone] (Wo rk) documented as of this encounter Procedures Procedure Name Priority Date/Time Associated Diagnosis Comme nts BI BREAST SCREENING Routine 01/07/2011 9:00 AM Re sults for this BILATERAL CDT procedure are i n the results section. documented in this encounter Results BI Breast Screening Bilateral (01/07/2011 9:00 AM CDT) Anatomical Region Laterality Modality Breast Bilateral Mammography Specimen (Source) Anatomical Collection Method Collection Time Re ceived Time Location / / Volume Laterality 01/07/2011 9:00 AM CDT Impressions 01/07/2011 11:02 AM CDT BI-RADS 1. Negative. Recommend routine s creening mammogram. ? BREAST MAMMOGRAPHY-GENERAL OBSERVATION: The false negative rate for mammography it is 15 to 20%. It cannot b e used, therefore, to replace regular physical examination. A normal o r noncontributory mammogram report should also not deter the aggress michael further workup of any suspected palpable masses. Narrative 01/07/2011 11:02 AM CDT Screening Digital Mammogram MLO and CC v iews ? Clinical history: No current complaints ?? Comparison: 12/09/2009, 11/27/2008, 8, 10/27/2006. ?? Findings: The breast parenchyma is scatt ered fibroglandular density.. There is no suspicious microcalcificatio n, ??focal mass, or architectural distortion. ??There is no significant change. ?? Computer Aided Detection was utilized du ring the interpretation of this exam. ?? Procedure Note Maxime Dove M.D. / Provider, Steve landis M.D. - 10/28/2016 Screening Digital Mammogram MLO and CC v iews Clinical history: No current complaints Comparison: 12/09/2009, 11/27/2008, 8, 10/27/2006. Findings: The breast parenchyma is scatt ered fibroglandular density.. There is no suspicious microcalcificatio n, focal mass, or architectural distortion. There is no si gnificant change. Computer Aided Detection was utilized du ring [...] further workup of any suspected palpable masses. Shirley Heller R.T.(R), R.T.(R)(M) IMG BI PROCEDURES documented in this encounter Visit Diagnoses Not on filedocumented in this encounter
--- OUTSIDE RECORDS SUMMARY | 2022-03-22 15:52 | XMS_ITS | Encounter Summary ---
:1950 Author Organization [facility] Address [address] [place] [address] Care Team Providers Name Role Phone Unavailable Primary Care Provider Unavailable Encounter Details Date Type Department Care Team Description 02/11/2010 Hospital Encounter HX [facility] Rolanda Serna M.D. Social History Tobacco Use Types Packs/Day Years Used Date Smoking Tobacco: Never Assessed Alcohol Habits Answer Date Recorded How often do you have a drink containing 4 or more times a w [place] 10/05/2021 alcohol? How many drinks containing alcohol [...] encounter Progress Notes Pawel Serna M.D. - 02/11/2010 12:00 AM CDT [id number] CHIEF COMPLAINT/REASON FOR VISIT Low back pain not much better HISTORY OF PRESENT ILLNESS This 59-year-old female patient is in for recheck of low back pain. She was seen on January 27 by me had x-rays done. They showed moderate joint space narrowing at the L2 L3 level with associated end plate sclerosis and marginal osteophytic formation. This correlates with the mid lumbar pain that she is experiencing. She has a constant pain she rates it as a 7/10. It is worse when she gets out of bed and if she stands up. She walks 4 miles a day which is helpful. The pain goes down her legs right greater than left. It helps if she does stretching especially drawing her legs up to her chest prior to getting out of bed in the morning. She does not experience any numbness or weakness in her legs. 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 I discussed getting MRI of her back and seeing Dr. Dalton front desk specialist. She would prefer to see him before doing the MRI since she really doesn't like doing that. I feel however that may be necessary to better differentiate what is going on. EMR record reviewed and updated. CURRENT MEDICATIONS [...] EMR PHYSICAL EXAM AREA EXAM TEXT SPINE Tenderness lumbar area mid area again. Straight leg raising negative. Rotation of hips negative. No sensory loss no loss of muscle strength. NEURO Deep tendon reflexes symmetrical +2. IMPRESSION/REPORT/PLAN Degenerative disc disease L2 3 facet sclerosis and osteophytic change. Cutting back the Robaxin to 750 mg 1 t.i.d. since is seems to be making her tired. Continue with the Aleve b.i.d. and Tylenol tablet t.i.d. Continue with the cold packs PRN pain which seem to be helping and stretching and warming the area before her walks. She will recheck with me after her evaluation medical studies and treatment by Dr. Dalton. SFO/clf Signed Pawel Serna M.D. Family Medicine Electronically Signed By:PAWEL SERNA MD On 02/13/2010 03:08 PM Source: [facility] MHSDOLBEYNONRADSYS Document Id: [id number] documented in this encounter Miscellaneous Notes Miscellaneous - Pawel Serna M.D. - 02/11/2010 9:11 AM CDT Ambulatory Depart Summary [address] [address] Visit Information Name: MAYRA SIMMONS Current Date: 02/11/2010 09:11:19 Primary Care Provider: PAWEL SERNA MD [phone] MAYRA SIMMONS has been given the following [...] to the patient and/or family, guardian/caregiver. Source: [facility] POWERCHART Document Id: [id number] Miscellaneous - Ronda Anglin L.P.N. - 02/11/2010 8:31 AM CDT Adult Test Rack Operator Intake/History Adult Test Rack Operator Intake/History Entered On: 02/11/2010 8:35 CDT Performed On: 02/11/2010 8:31 CDT by RONDA ANGLIN Intake Chief Complaint: recheck low back pain Peripheral Pulse Rate: 68bpm Respiratory Rate: 18br/min Systolic Blood Pressure: 128mmHg Diastolic Blood Pressure: 70mmHg NIBP Mean: 89mmHg Actual Weight: 87.100kg(Converted to: 192lb 0oz) Dosing Weight Clinic: 87.10kg RONDA ANGLIN - 02/11/2010 8:31 CDT Subjective Pain Symptoms: Yes RONDA ANGLIN - 02/11/2010 8:31 CDT Pain Pain Assessment Grid Pain 1 Location: Lower back Laterality: Bilateral Intensity: 7 Time Pattern: Intermittent Onset: Sudden Quality: Cramping, Sharp Pain Radiation: Yes Aggravating Factors: Movement Alleviating Factors: Cold therapy, Medication, Moist heat RONDA ANGLIN - 02/11/2010 8:31 CDT Dependent Habits Tobacco Use/Currently Using: No RONDA ANGLIN - 02/11/2010 8:31 CDT Caffeine Use Grid Caffeine Use: Current Type: Chocolate, Soft drinks, Tea Frequency: Occasionally RONDA ANGLIN - 02/11/2010 8:31 CDT Allergies Allergies (Active) amoxicillin Estimated Onset Date: Unspecified ; Reactions: diarrhea ; Created By: RONDA ANGLIN; Reaction Status: Active ; Category: Drug ; Substance: amoxicillin ; Type: Allergy ; Updated By: RONDA ANGLIN; Reviewed Date: 01/27/2010 10:57 CDT Levaquin Estimated Onset Date: Unspecified ; Reactions: hives ; Created By: RONDA ANGLIN; Reaction Status: Active ; Category: Drug ; Substance: Levaquin ; Type: Allergy ; Updated By: RONDA ANGLIN; Reviewed Date: 01/27/2010 10:57 CDT morphine Estimated Onset Date: Unspecified ; Reactions: hives ; Created By: RONDA ANGLIN; Reaction Status: Active ; Category: Drug ; Substance: morphine ; Type: Allergy ; Updated By: RONDA ANGLIN; Reviewed Date: 01/27/2010 10:57 CDT piroxicam Estimated Onset Date: Unspecified ; Reactions: swollen hands and feet, ankles ; Created By: RONDA ANGLIN; Reaction Status: Active ; Category: Drug ; Substance: piroxicam ; Type: Allergy; Updated By: RONDA ANGLIN; Reviewed Date: 01/27/2010 10:57 CDT [facility] Document Id: [id number] CDT!31 documented in this encounter Plan of Treatment Upcoming Encounters Date Type Specialty Care Team Description 03/25/2022 Office Visit Family Medicine Leslie Gonzalez M.D. [address] [place] [address] [phone] (Wo rk) documented as of this encounter Visit Diagnoses Not on filedocumented in this encounter
--- OUTSIDE RECORDS SUMMARY | 2022-03-22 15:52 | XMS_ITS | Encounter Summary ---
:1950 Author Organization [facility] Address [address] [place] [address] Care Team Providers Name Role Phone Unavailable Primary Care Provider Unavailable Encounter Details Date Type Department Care Team Description 10/29/2010 Hospital Encounter HX [facility] Ken Dalton M.D. [address] [place] [address], [address] [employer], [place] [id number] (Wo rk) Social History Tobacco Use Types Packs/Day Years Used Date Smoking Tobacco: Never Assessed Alcohol Habits Answer Date Recorded How often do you have a drink containing 4 or more times a w [place] 10/05/2021 alcohol? How many drinks containing alcohol [...] 1 to 4 times per year 07/2021 anglican services? Do you belong to any clubs [...] encounter Progress Notes Charito Dalton M.D. - 10/29/2010 12:00 AM CDT [id number] CHIEF COMPLAINT/ REASON FOR VISIT Left thigh pain. HISTORY OF PRESENT ILLNESS Ms. Simmons is a pleasant 60-year old female who has been seen for lumbar spinal stenosis. At her last visit on October 05 I referred her to neurology for further evaluation of paresthesias involving the upper and lower extremities. She presents today with a new issue. She reports that over the past week she has been gardening and spending a lot of time outdoors. During this time, she and she has noticed pain in the left posterior knee and just proximal to the knee in the posterior thigh. She notes this pain especially if she is walking up and downstairs and especially down stairs. Also she notes this when she first gets up from a chair or from the bed that she has increased pain in this area. She has also noted a slight increase in her numbness in the left lateral caballero. She denies any swelling, warmth, or erythema in the calf. She denies any weakness in lower extremities. She reports that the symptoms in her low back and bilateral lower extremities which I have been following her for, are most consistent with spinal stenosis are unchanged. She has been icing the posterior thigh on a regular basis and has found that to be helpful. She denies any changes in her bowel or bladder habits or fevers or chills. PHYSICAL EXAM GENERAL: Pleasant 60-year-old female in no acute distress. GAIT: Gait reveals normal emmanuel and stride. Toe and heel walking are normal. EXTREMITIES: Strength: All major muscle groups of the bilateral upper and lower extremities have normal and symmetric muscle strength, bulk and tone, except for -1 strength with resisted knee flexion which is limited by pain. She also has pain with knee extension in the posterior thigh. Reflexes: Bilateral lower extremity muscle stretch reflexes are physiologic and symmetric. Plantar responses downgoing bilaterally. Straight leg raise is negative for radicular pain or paresthesias bilaterally. MUSCULOSKELETAL: Preserved lumbar range of motion with mild discomfort at the end range of extension across low back. Knee: Range of motion is from 0-135 degrees bilaterally. There is no medial or lateral joint line tenderness. Negative Cyrus's and negative bounce home. There is no left calf warmth, swelling, or tenderness. There is tenderness to palpation over the distal medial hamstrings on the left which reproduces Ms. Simmons's usual discomfort. IMPRESSION/REPORT/PLAN 1. Low back and bilateral lower extremity pain, most consistent with lumbar spinal stenosis 2. MRI evidence for severe central canal stenosis at L4-L5 3. Bilateral hand and feet paresthesias 4. Left posterior thigh pain Ms. Simmons's neurologic examination is unchanged from when I saw her at the beginning of October. Her symptoms that she is experiencing in the left posterior thigh are most consistent with a hamstring strain. Other things to consider would include worsening of her L5 radiculopathy but with her tenderness over the hamstring tendons themselves and her description of when the pain is most bothersome, I feel this is most likely the etiology of her discomfort rather than worsening of her left L5 radiculopathy. However, she is having some slight increase in numbness in a L5 distribution so that cannot be completely excluded. PLAN 1. I am going to have Ms. Simmons continue icing the hamstring on a regular basis. I am going to have her refrain from any gardening or any prolonged walking for the next week. I am going to have Monserrat Paris, diabetes trainer instruct her on some basic stretching excises for the left hamstring and hopefully as her pain improves, we may add in some very gentle strengthening as well especially with how active Ms. Simmons is in the summer. 2. I will plan on seeing Ms. Simmons back in 3 weeks. If she is not improved, we will likely have to look closer into the possibility that this is more related to her L5 radiculopathy. Ms. Simmons knows to be in contact with me prior to that time if she notes any worsening or worrisome symptoms which we went over in detail today. She voiced agreement and understanding with this plan. Total time 25 minutes and counseling time 15 minutes AILIN/adelfo Signed Charito Dalton M.D. Physical Medicine & Rehabilitation Electronically Signed By: HCARITO DALTON MD On: 11/05/2010 12:57 PM Modified by and Electronically Signed by: CHARITO DALTON MD On: 11/05/2010 12:57 PM Source: [facility] MHSDOLBEYNONRADSYS Document Id: [id number] documented in this encounter Miscellaneous Notes Miscellaneous - Charito Dalton M.D. - 10/29/2010 10:34 AM CDT Ambulatory [place] [address] Visit Information Name: STEPH SIMMONS Current Date: 10/29/2010 10:33:58 Primary Care Provider: PAWEL SERNA MD Your [...] and stroke. Vaccine: Flu every 1 year 10/29/2010 Immunization to help prevent you from getting [...] Charito Dalton MD Your Goals/Additional instructions: Source: [facility] POWERCHART Document Id: [id number] Electronically signed by Conversion, [facility] Straddle Buggy Operator [id number] at 11/07/2016 7:45 PM CDT Miscellaneous - Charito Dalton M.D. - 10/29/2010 10:33 AM CDT Ambulatory Depart Summary [address] [address] Visit Information Name: STEPH SIMMONS Current Date: 10/29/2010 10:33:57 Primary Care Provider: PAWEL SERNA MD STEPH [...] (multivitamin) once a day Additional Information: Source: [facility] POWERCHART Document Id: [id number] Electronically signed by Aaron [facility] Straddle Buggy Operator [id number] at 11/07/2016 7:45 PM CDT Miscellaneous - Monserrat Paris P.A.-C. - 10/29/2010 10:00 AM CDT Adult Hotbed Operator Intake/History Adult Hotbed Operator Intake/History Entered On: 10/29/2010 10:00 CDT Performed On: 10/29/2010 10:00 CDT by MONSERRAT PARIS Intake Systolic Blood Pressure: 134mmHg Diastolic Blood Pressure: 72mmHg NIBP Mean: 93mmHg BP Location: Right upper extremity Actual Weight: 88.400kg(Converted to: 194lb 14oz) Weight Source: Standing scale Dosing Weight Clinic: 88.40kg MONSERRAT PARIS - 10/29/2010 10:00 CDT Subjective Pain Symptoms: No MONSERRAT PARIS - 10/29/2010 10:00 CDT Dependent Habits Tobacco Use/Currently Using: No MONSERRAT PARIS - 10/29/2010 10:00 CDT Caffeine Use Grid Caffeine Use: Current Type: Chocolate, Soft drinks, Tea Frequency: Occasionally MONSERRAT PARIS - 10/29/2010 10:00 CDT Allergy Allergies (Active) amoxicillin Estimated Onset [...] Levaquin ; Type: Allergy ; Updated By: SUNSIHNE ANGLIN; Reviewed Date: 01/27/2010 10:57 CDT morphine [...] ANGLIN; Reviewed Date: 01/27/2010 10:57 CDT Source: [facility] [employer]ient Document Id: [id number] CDT!18 Miscellaneous - Monserrat Paris P.A.-C. - 10/29/2010 10:00 AM CDT Ambulatory Vitals Height Weight Ambulatory Vitals Height Weight Entered On: 10/29/2010 10:01 CDT Performed On: 10/29/2010 10:00 CDT by MONSERRAT PARIS Vitals/Ht/Wt Systolic Blood Pressure: 132mmHg Diastolic Blood Pressure: 72mmHg NIBP Mean: 92mmHg BP Location: Right upper extremity MONSERRAT PARIS - 10/29/2010 10:00 CDT [facility] Document Id: [id number] CDT!6 documented in this encounter Plan of Treatment Upcoming Encounters Date Type Specialty Care Team Description 03/25/2022 Office Visit Family Medicine Leslie Gonzalez M.D. [address] [place] [address] [phone] (Wo rk) documented as of this encounter Visit Diagnoses Not on filedocumented in this encounter
--- OUTSIDE RECORDS SUMMARY | 2022-03-22 15:54 | XMS_ITS | Clinical Summary ---
:1950 Author Organization [facility] [place] [address] Care Team Providers Name Role Phone Merrill Bee Unavailable Merrill Bee Primary Care Provider Allergies Active Allergy Reactions Severity Noted Date Comments Amoxicillin Diarrhea 04/19/2014 Levofloxacin Edema 04/19/2014 Morphine Hives Low 04/19/2014 Piroxicam Edema 04/19/2014 Pregabalin Other - Describe In 12/13/2012 fatigue, edema at high Comment Field dose Medications Medication Sig Dispensed Refills Start Date End Date Status atorvastatin Take 40 mg by mouth 0 05/15/2020 Active (LIPITOR) 40 mg at bedtime. tablet DULoxetine (CYMBALTA) Take 120 mg by 0 04/01/2020 Active 60 mg Delayed-release mouth once daily. capsule latanoprost (XALATAN) Place 1 Drop into 0 03/19/2020 Active 0.005 % ophthalmic both eyes at solution bedtime. meclizine (ANTIVERT) Take 1 tablet by 0 04/22/2020 Active 25 mg tablet mouth 3 times daily if needed. multivitamin Take 1 tablet by 0 Active therapeutic mouth once daily. (THERAGRAN; ONCOVITE) tablet b complex-vitamin Take 1 capsule by 0 Active c-folic acid 1 mg mouth once daily. (NEPHROCAPS) 1 mg capsule cholecalciferol Take 1,000 units by 0 Active (VITAMIN D3) 1,000 mouth once daily. unit tablet calcium carbonate Take 500 mg by 0 Active (OS-TALI 500) 500 mg mouth 2 times daily calcium (1,250 mg) with meals. tablet fish oil-omega-3 Take 1 Capsule by 0 Active fatty acids (FISH mouth once daily. OIL) 1,200-360 mg cap One capsule is 1200 mg-360 mg TURMERIC ORAL Take 1 capsule by 0 Active mouth once daily. magnesium oxide Take 400 mg by 0 Active (MAG-OX 400) 400 mg mouth once daily. tablet acetaminophen Take 500-1,000 mg 0 Active (TYLENOL EXTRA by mouth 3 times STRGTH) 500 mg tablet daily if needed. Max acetaminophen dose: 4000mg in 24 hrs. esomeprazole (NEXIUM) Take 20 mg by mouth 0 Active 20 mg capsule once daily before a meal. polyethylene glycoL Measure 17g in the 238 g 3 06/22/2020 Active (MIRALAX) 17 cap provided and gram/dose dissolve completely powderIndications: in 8 ounces of SBO (small bowel liquid as directed obstruction) (HC), and drink once a Constipation, day unspecified constipation type amLODIPine (NORVASC) Take 10 mg by mouth 0 2 Active 10 mg tablet once daily. aspirin 325 mg tablet Take 325 mg by 0 Active mouth once daily. naproxen sodium Take 1 Tablet by 0 Active (ALEVE ORAL) mouth each time if needed. Active Problems Problem Noted Date Mixed hyperlipidemia 07/08/2020 Benign essential HTN 07/08/2020 GERD without esophagitis 07/08/2020 Hypotension due to hypovolemia 07/08/2020 Lactate blood increase 07/08/2020 GERD (gastroesophageal reflux disease) 06/16/2020 SBO (small bowel obstruction) 06/15/2020 HOWARD (acute kidney injury) 06/15/2020 Hypertension 06/15/2020 Hyperlipidemia 06/15/2020 Chronic low back pain 06/15/2020 Personal history of colonic polyps 04/19/2014 Immunizations Name Administration Dates Next Due Influenza Virus, Unspecified 03/06/2020 Family History Medical History Relation Name Comments Lung cancer Father Relation Name Status Comments Father Social History Tobacco Use Types Packs/Day Years Used Date Former Smoker Quit: 06/14/18 94 Smokeless Tobacco: Never Used Alcohol Use Standard Drinks/Week Comments Yes 0 (1 standard drink = 0.6 oz pure 7-8 dr inks per week of anything alcohol) Alcohol Habits Answer Date Recorded How often do you have a drink 2-3 times a week 06/14/2019 containing alcohol? How many drinks containing alcohol do Not asked you have on a typical day when you are drinking? How often do you have six or more Not asked drinks on one occasion? Comment: 7-8 drinks per week of anything 2020 Sex Assigned at Date Recorded Not on file Obstetrics History Last Filed Vital Signs Vital Sign Reading Time Taken Comments Blood Pressure 134/72 11/13/2021 10:09 AM CDT Pulse 89 11/13/2021 10:09 AM CDT Temperature 36.3 ??C (97.4 ??F) 11/13/2021 10:09 AM CDT Respiratory Rate 18 11/13/2021 10:09 AM CDT Oxygen Saturation 98% 11/13/2021 10:09 AM CDT Inhaled Oxygen Concentration - - Weight 91.9 kg (202 lb 11.2 oz) 11/13/2021 8:24 AM CDT Height 167.5 cm (5' 5.95) 11/04/2021 8:24 AM CDT Body Mass Index 32.77 11/04/2021 8:24 AM CDT Plan of Treatment Health Maintenance Due Date Last Done Comments Tdap 1959 Depression screening for age 12+ 1960 BMI (ht and wt on same day) for 1966 age 18+ Hepatitis C screening for age 1205/13/1966 18-79 Tetanus booster 1968 Lipids for age 45-75 1993 Mammogram for age 45-75 1993 Zoster (shingles) series for age 1205/13/1998 50+ (1 of 2) DEXA/DXA scan for age 65+ 2013 Medicare Wellness for age 65+ 2013 Pneumococcal series for age 65+ (1 2013 - PCV) COVID-19 vaccine series (5 - 10/30/2021 09/04/2021, 021, Booster for Moderna series) 08/29/2020, Addition al history exists Influenza for age 65+ 02/04/2022 03/06/2020 Colonoscopy through age 75 06/14/2024 06/14/2019, 4, 04/19/2014, Additional history exists Results Not on filefrom Last 3 Months Insurance Payer Benefit Plan / Subscriber ID Effective Dates Phone Addre ss Type Group MEDICARE PART B MEDICARE PART B [id number] 2013-Prese ATTN: CLAIMS - HB USE ONLY HB ONLY nt [address] [place] [address] MEDICARE PART A MEDICARE PART A [id number] 2013-Prese ATTN: CLAIMS - HB USE ONLY HB ONLY nt [address] [place] [address] UCARE MR [place] MEDICARE [id number] 2013-[place] [address] [place] [address] BLUE CROSS MR [place] CROSS [id number] 2016-[place] [address] [address] [place], [place] [id number] BLUE [place]OSS BLUE CROSS [id number] 2016-[place] [address] [address] [place] [address] [id number] Advance Directives Documents on File Type Date Recorded Patient Color Television Console Monitor Explanati on Healthcare Directive 11/18/2009 12:00 AM ADVANCE DIRECTIVE Latest Code Status on File Code Status Date Activated Date Inactivated Comments Full Code 11/13/2021 8:03 AM 11/13/2021 1:10 PM Code Status Discussion: Reviewed Preferences Full Code 07/08/2020 6:33 PM 07/09/2020 3:38 PM Code Status Discussion: Discussed Full Code 06/16/2020 1:07 AM 06/22/2020 4:51 PM Code Status Discussion: Discussed Care Teams Sea Shell Gatherer Relationship Specialty Start Date End Date Merrill Bee PA PCP - General Physician Sales Market Leader 10/26/[address] [place] [address] [place] [phone] Merrill Bee PA 03/02/14 (work)
[2022-03-22 23:17] LABS: SARS PCR* Negative SARS-CoV-2 (Negative)
== END 2022-03-22 15:41 | disposition home or self-care (01) ==
LOC: FBOLAB 15:41
PROVIDERS: PCP Physician Assistant; Visit Provider Physician Assistant
DX: Z20.822 Contact with and (suspected) exposure to COVID-19 (principal)
CPT/HCPCS: 87635

== ENCOUNTER 2022-03-24 10:39 | Day surgery (SDC) | payer MEDICARE, BC, SELFPAY ==
[2022-03-24] VITALS (18 sets, daily range): BP systolic 120–206; BP diastolic 61–101; PULSE 75–99; RESP 14–16; TEMP 36.2–37.1; O2SAT 95–100; BMI 34.7
[2022-03-24] MEDS: ETHYL CHLORIDE 1 APPLICATION 1 APPLIC TOPICAL (11:38)
[2022-03-24] MEDS: LACTATED RINGERS 1000 ML 1,000 ML 100 ML IV (11:38)
[2022-03-24] MEDS: ACETAMINOPHEN 500 MG TABLET 1000 MG PO (11:50)
[2022-03-24] MEDS: CELECOXIB 200 MG CAPSULE PO (11:50)
[2022-03-24] MEDS: OXYCODONE (CR) 10 MG TAB.ER.12H PO (11:50)
[2022-03-24] MEDS: MIDAZOLAM HCL 1 MG/ML inj IVP (12:05)
--- NOTE | 2022-03-24 12:14 | P.NB_ITS ---
Nerve Block Nerve Block Time Seen by Provider: 12:15 Date Seen: 03/24/22 Type of block requested by surgeon for post-operative analgesia: adductor canal Side: left Time out performed: Yes Verification of patient name: Yes Verification of date of : Yes Site marking: site marked Name of person performing procedure: Cecilio Continuous monitoring Was continuous monitoring of O2 sat, B/P, cardiac rehabilitation specialist, recorded every 15 minutes?: Yes Procedure Checklist: sterile prep, needles and gloves Ultrasound guided. Images saved: Yes Medications given in 5ml increments after negative aspiration: Ropivicaine %: 0.5 mL: 20 Needle gauge: 20 Decadron (mg): 10 Precedex (mcg): 25 Patient tolerated procedure well: Yes Additional comments: Needle noted adjacent to nerve Block Charges Block Charge (with Pro Fee): Femoral Nerve Use of Ultrasound Machine for Block: Yes- US Guidance/pain block
--- NOTE | 2022-03-24 12:15 | W.PM.NB ---
Nerve Block Nerve Block Time Seen by Provider: 12:16 Date Seen: 03/24/22 Type of block requested by surgeon for post-operative analgesia: geniculars Side: left Time out performed: Yes Verification of patient name: Yes Verification of date of : Yes Site marking: site marked Name of person performing procedure: Cecilio Continuous monitoring Was continuous monitoring of O2 sat, B/P, quality assurance monitor, recorded every 15 minutes?: Yes Procedure Checklist: sterile prep, needles and gloves Medications given in 5ml increments after negative aspiration: Ropivicaine %: 0.5 mL: 9 Needle gauge: 25 Patient tolerated procedure well: Yes Block Charges Block Charge (with Pro Fee): Genicular Nerve Block Use of Ultrasound Machine for Block: No
--- NOTE | 2022-03-24 12:16 | SUR.PREOP ---
1204: TIME?OUT:? PT/RN: justen MDA: Dr Ronda Hernandes?VERIFICATION?OF?SURGICAL?SITE: left knee,?PROCEDURE nerve block,?AND?CONSENT OBTAINED?PRIOR?TO?INVASIVE?PROCEDURE.
[2022-03-24] MEDS: fentaNYL 100 MCG/2 ML inj IVP (12:24)
--- NOTE | 2022-03-24 14:04 | PM.ORPRC ---
Procedure Note Date of procedure: 03/24/22 Procedure: SURGEON: Forest Rhoades MD RAD TECH: PRAKASH Nevarez PREOPERATIVE DIAGNOSIS: Left total knee arthroplasty quads tendon/extensor mechanism tear POSTOPERATIVE DIAGNOSIS: Left total knee arthroplasty quads tendon/extensor mechanism tear NAME OF OPERATION: Left knee quads tendon/extensor mechanism repair ANESTHESIA: Spinal ESTIMATED BLOOD LOSS: 0 mL COMPLICATIONS: None SPECIMENS: None DRAINS: None PREOPERATIVE ANTIBIOTICS: Ancef 2 grams IMPLANTS: None INDICATIONS: The patient is a 71-year-old female who underwent uncomplicated total knee arthroplasty 6 weeks ago. Last week, while in therapy she was getting off of the exercise bike and stumbled, twisting her knee. Ever since then she has had swelling, bruising and inability to fully straighten her knee. Prior to this injury, she was doing quite well. Clinically, she has a quads tendon tear with disruption of the extensor mechanism. Therefore, operative intervention was recommended. The risks, benefits and expected outcomes were discussed in detail. These included but were not limited to: Infection, bleeding, injury to blood vessel or nerve, venous thromboembolism. All questions were answered to their satisfaction. Use of an press assistant was necessary throughout the case for patient positioning and safety, soft tissue retraction, and closure. PROCEDURE: An abductor canal block was placed by anesthesia. Spinal anesthesia was administered. The patient was placed supine on the operating table. The left lower extremity was prepped and draped in the usual sterile fashion. The limb was exsanguinated with the Shorty bandage. The pneumatic tourniquet was inflated to 300 mmHg. The previously placed standard anterior incision was utilized. Subcutaneous dissection was taken sharply to the quads tendon. Full-thickness medial and lateral flaps were elevated. The extensor mechanism was found to be disrupted with tearing of our medial parapatellar approach up to the quads tendon, then laterally across the quads tendon and into the lateral retinaculum. Hematoma was removed with the curette, rongeur and the pulse conservation of resources commissioner. We irrigated the wound with 3 L of normal saline via pulse lavage. We then did a 3 minute Betadine solution soak. We then irrigated the wound again with normal saline via pulse lavage. Next, a modified Krackow stitch x2 with # 2 FiberWire suture was placed in the quads tendon and lateralis. The retinacula and medial parapatellar arthrotomy were closed with a #1 Stratafix. Subcutaneous tissues were closed with a 3-0 Stratafix and the skin with a running 3-0 Stratafix in a subcuticular fashion. Glue was used to seal the skin. A dry dressing, and T scope brace were applied. Sponge and needle counts were correct x2. The patient tolerated the procedure well. There were no apparent complications. They were carefully transferred to the hospital bed and taken to the postanesthesia care unit in satisfactory condition. PLAN: The patient will be discharged to home. They may weightbear as tolerates with the brace locked in full extension. 0-30 degrees range of motion will be allowed for the 1st 2 weeks postoperatively, then 0-60 degrees for 2 weeks, then 0-90 degrees x2 weeks, then unlocked. They will follow up in the office in 2 weeks for a wound check and to restart therapy. I will plan to see her at week 4 or week 6 to assess her progress.
--- NOTE | 2022-03-24 14:12 | W.ANESCHARGE ---
Anesthesia Charges Start Date/Time Anesthesia Start Date: 03/24/22 Anesthesia Start Time: 09:43 Stop Date/Time Anesthesia Stop Date: 03/24/22 Anesthesia Stop Time: 10:24 Summary Emergency: No Extremes of Age: Over 68-CPT 76072
--- NOTE | 2022-03-24 14:45 | W.ANESCHARGE ---
Anesthesia Charges Start Date/Time Anesthesia Start Date: 03/24/22 Anesthesia Start Time: 12:50 Stop Date/Time Anesthesia Stop Date: 03/24/22 Anesthesia Stop Time: 14:40 Summary Emergency: No Extremes of Age: Over 68-CPT 40087
--- NOTE | 2022-03-24 14:53 | W.ANESCHARGE ---
Anesthesia Charges Start Date/Time Anesthesia Start Date: 03/24/22 Anesthesia Start Time: 12:50 Stop Date/Time Anesthesia Stop Date: 03/24/22 Anesthesia Stop Time: 14:40 Summary Emergency: No Extremes of Age: Over 68-CPT 42595
[2022-03-24] MEDS: OxyCODONE/APAP 5-325 TABLET PO ×2 (15:37→16:37)
== END 2022-03-24 16:45 | disposition home or self-care (01) ==
PROVIDERS: PCP Physician Assistant; Visit Provider Orthopaedic Surgery
PROC: (CPT 27385; principal; 2022-03-24 12:00)
DX: S76.112A Strain of left quadriceps muscle, fascia and tendon, initial encounter (principal); Z96.652 Presence of left artificial knee joint
CPT/HCPCS: 27385; 00142; 01400; 64447; 64454; 76942; 99100; A9270; J1100; J2250; J2370; J2400; J2704; J2795; J3010; J7120; L1833

== ENCOUNTER 2025-01-22 07:57 | Outpatient (CLI) | payer MEDICARE, OTHER, SELFPAY | END 2025-01-22 07:58 | disposition home or self-care (01) | LOC: INJ CL 07:58 | PROVIDERS: PCP Physician Assistant; Visit Provider Family Medicine | DX: M54.16 Radiculopathy, lumbar region (principal); M51.369 Other intervertebral disc degeneration, lumbar region without mention of lumbar back pain or lower extremity pain | CPT/HCPCS: 62323; J0702; Q9966 ==